=== PATIENT | male | born 1955 | race Caucasian/White ===

== ENCOUNTER 2019-01-23 18:19 | Emergency (ER) | payer BC ==
[~2019-01-23] VITALS: Ht 182.9 cm; Wt 90.7 kg
[~2019-01-23 18:19] MED LIST: ATOR40TA70 PO; BISTOLIC; CLOP75TA28 PO; FLUO40CA PO; FURO20TA4 PO; LISI40TA PO; [UNRECOGNIZED DRUG - REMARK]
--- NOTE | 2019-01-23 18:19 | NUR ---
PT TO ED 6 AT THIS TIME. PER DAUGHTER LAST KNOWN WELL TIME 1814 1821-18G HL TO RAC 1822-16F LUJAN PLACED BY MARCELL FLOWER 1823-PT TO CT PER CART AT THIS TIME. THIS RN AT BEDSIDE W/ KIARRA CRUMP M[employer] PLASTIC MOLDS 183-PT BACK TO ED FROM CT 1836-20G HL TO LAC 1838-EKG AT BEDSIDE 1845-TPA CONSENT SIGNED AT THIS TIME BY PTS DAUGHTER. 1848-FSBS 107 MG/DL 1858-TPA ADMINISTERED. BOLUS OF 8.2MGS ADMINISTERED OVER 1 MIN 1900-TPA GTT UP OF 73MGS TO BE INFUSED OVER 1HR. PLANS TO TRANSFER PT TO [facility] AT THIS TIME.
--- NOTE | 2019-01-23 18:27 | NUR ---
[facility] PLACE ON STANDBY .
[2019-01-23 18:35] LABS: BASOPHILS # (AUTO) 0.1 10^3/uL (0.0-0.1); BASOPHILS % (AUTO) 1 % (0-10); EOSINOPHILS # (AUTO) 0.2 10^3/uL (0.0-0.3); EOSINOPHILS % (AUTO) 2 % (0-10); HEMATOCRIT 40 % (40-54); HEMOGLOBIN 13.6 G/DL (13.3-17.7); LYMPHOCYTES # (AUTO) 1.8 X 10^3 (1.0-4.0); LYMPHOCYTES % (AUTO) 22 % (12-44); MEAN CORPUSCULAR HEMOGLOBIN 30 PG (25-34); MEAN CORPUSCULAR HGB CONC 34 G/DL (32-36); MEAN CORPUSCULAR VOLUME 88 FL (80-99); MEAN PLATELET VOLUME 8.9 FL (7.4-10.4); MONOCYTES # (AUTO) 0.6 X 10^3 (0.0-1.0); MONOCYTES % (AUTO) 7 % (0-12); NEUTROPHILS # (AUTO) 5.8 X 10^3 (1.8-7.8); NEUTROPHILS % (AUTO) 69 % (42-75); PLATELET COUNT 292 10^3/uL (130-400); WHITE BLOOD COUNT 8.4 10^3/uL (4.3-11.0)
--- NOTE | 2019-01-23 18:35 | Diagnostic Imaging Report ---
PROCEDURE: CT head without contrast. TECHNIQUE: Multiple contiguous axial images were obtained through the brain without the use of intravenous contrast. Auto Exposure Controls were utilized during the CT exam to meet ALARA standards for radiation dose reduction. INDICATION: Change in mental status. Abnormal gaze. FINDINGS: The ventricles are normal in size, shape and position. There is no acute parenchymal hemorrhage, edema or mass. There is no extra-axial mass or hemorrhage. IMPRESSION: No acute abnormality is seen with no change from 04/01/2014. Dictated by: Dictated on workstation # [id number]
[2019-01-23 18:39] LABS: BILIRUBIN,URINE NEGATIVE (NEGATIVE); CLARITY,URINE CLEAR; COLOR,URINE YELLOW; GLUCOSE, URINE (UA) NEGATIVE (NEGATIVE); KETONES,URINE NEGATIVE (NEGATIVE); LEUKOCYTE ESTERASE ,URINE NEGATIVE (NEGATIVE); NITRITE,URINE NEGATIVE (NEGATIVE); PH,URINE 6 (5-9); PROTEIN,URINE 1+ (NEGATIVE); UROBILINOGEN,URINE NORMAL (NORMAL)
[2019-01-23 18:44] LABS: FIBRIN DEGRADATION PRODUCTS 0.54 UG/ML (0.00-0.49); INR 0.9 (0.8-1.4); PROTHROMBIN TIME PATIENT 12.3 SEC (12.2-14.7)
[2019-01-23 18:46] LABS: BACTERIA,URINE NEGATIVE /HPF; SQUAMOUS EPITHELIAL CELL,UR 0-2 /HPF
--- OUTSIDE RECORDS SUMMARY | 2019-01-23 18:46 | XMS REPORT | Continuity of Care Document ---
Author Author [facility] Organization [facility] Address Unknown Phone Unavailable Allergies There is no data. Medications There is no data. Problems There is no data. Procedures There is no data. Results There is no data. Encounters ACCT No. Visit Date/Time Discharge Status Pt. Type Provider Facility Loc./Unit Complaint [id number] 04/01/2014 15:11:00 04/01/2014 17:26:00 DIS Emergency
[2019-01-23 18:50] LABS: ALANINE AMINOTRANSFERASE 19 U/L (0-55); ALBUMIN 4.4 GM/DL (3.2-4.5); ALKALINE PHOSPHATASE 86 U/L (40-136); BILIRUBIN,TOTAL 0.4 MG/DL (0.1-1.0); BUN/CREATININE RATIO 12; CALCIUM 9.7 MG/DL (8.5-10.1); CARBON DIOXIDE 18 MMOL/L (21-32); CHLORIDE 94 MMOL/L (98-107); CREATININE SERUM 1.01 MG/DL (0.60-1.30); GFR ESTIMATED > 60; GLUCOSE 119 MG/DL (70-105); POTASSIUM 3.9 MMOL/L (3.6-5.0); SODIUM 127 MMOL/L (135-145); TOTAL PROTEIN 8.1 GM/DL (6.4-8.2)
--- NOTE | 2019-01-23 18:50 | ED Neurological Problem ---
General Chief Complaint: Neurological Problems Stated Complaint: STROKE LIKE SYMPTOMS History of Present Illness Date Seen by Provider: Jan 23, 2019 Time Seen by Provider: 18:19 Initial Comments 63 year old male was eating dinner at [employer], he got into the car and his reports he immediately had facial drooping, inability to speak and was brought her. His last known well time was 1814. Hx of carotid atherosclerosis that required surgery, hypertension, and CAD. 10 days ago had cataract surgery. Has been on Plavix. Recent dizziness and syncope, had his b/p medications decreased. Timing/Duration: other (< 5 min. ) Severity: moderate Associated Symptoms: confusion; No fever/chills, No nausea/vomiting, No seizures; slurred speech (non verbal but attempting to move his mouth); No trouble walking (unable to walk, required 3 max assist to move from car to w/c and w/c to cart) Allergies and Home Medications Allergies Coded Allergies: Penicillins (Unverified Allergy, Unknown, 01/23/19) Home Medications Atorvastatin Calcium 40 Mg Tablet, 40 MG PO DAILY, (Reported) Clopidogrel Bisulfate 75 Mg Tablet, 75 MG PO DAILY, (Reported) Fluoxetine Hcl 40 Mg Capsule, 40 MG PO DAILY, (Reported) Furosemide 20 Mg Tablet, 20 MG PO DAILY, (Reported) Lisinopril 40 Mg Tablet, 40 MG PO DAILY, (Reported) [[id number] Mg] , 1 PO DAILY, (Reported) Patient Home Medication List Home Medication List Reviewed: Yes Review of Systems Review of Systems Constitutional: no symptoms reported, see HPI Psychiatric/Neurological: See HPI, Cognitive Dysfunction, Unable to Move Lower Ext, Unable to Move Upper Ext, Weakness All Other Systems Reviewed Negative Unless Noted: Yes Past Zdoowtu-Kbprjf-Tkhmjq Hx Past Med/Social Hx: Reviewed Nursing Past Med/Soc Hx Patient Social History Alcohol Use: Occasionally Uses Alcohol Beverage of Choice: Beer Recreational Drug Use: No Smoking Status: Former Smoker Type Used: Cigarettes Former Smoker, Quit: Dec 31, 2007 Recent Hopitalizations: No Physical Abuse: No Sexual Abuse: No Mistreated: No Fear: No Immunizations Up To Date Tetanus Booster (TDap): More than 5yrs Past Medical History Surgeries: Yes (LEFT TOTAL HIP, FEM POP BYPASS, CAROTID ENDARTERECTOMY) Respiratory: No Cardiac: Yes (RIGHT FEM-POP, RIGHT CAROTID STENT) Hypertension Neurological: No Genitourinary: No Gastrointestinal: No Endocrine: No Psychosocial: No Integumentary: No Physical Exam Vital Signs Vital Signs - First Documented 01/23/19 18:19 Temp 97.3 Pulse 81 Resp 18 B/P (MAP) 154/65 (94) Pulse Ox 98 O2 Delivery Room Air Capillary Refill : Height, Weight, BMI Height: 5'11" Weight: 180lbs. oz. 81.132433jd; BMI Method:Stated General Appearance: WD/WN, moderate distress HEENT: TMs normal, pharynx normal, other (No gag reflex) Neck: supple, normal inspection Respiratory: chest non-tender, lungs clear, normal breath sounds Cardiovascular: normal peripheral pulses, regular rate, rhythm Gastrointestinal: normal bowel sounds, soft Extremities: no pedal edema, normal capillary refill Neurologic/Psychiatric: alert, aphasia, motor weakness (no active ROM to bilat UE and LE) Skin: normal color, warm/dry Lymphatic: no adenopathy Initial NIH 38; Repeat NIH Post CT 34. Stroke Onset of Symptoms Date of Onset of Symptoms: Jan 23, 2019 Time of Symptom Onset: 18:15 Onset of Symptoms: Yes NIH Stroke Scale Assessment Select: Post CT 34 Total: IV - TPa Received IV - TPa Procedure Performed?: Yes (8.2 mg bolus, then 73 mg/hour) IV - TPa Date: Jan 23, 2019 IV - TPa Time: 18:58 Progress/Results/Core Measures Results/Orders Lab Results Laboratory Tests Test 01/23/19 18:25 01/23/19 18:49 Range/Units White Blood Count 8.4 4.3-11.0 10^3/uL Red Blood Count 4.56 4.35-5.85 10^6/uL Hemoglobin 13.6 13.3-17.7 G/DL Hematocrit 40 40-54 % Mean Corpuscular Volume 88 80-99 FL Mean Corpuscular Hemoglobin 30 25-34 PG Mean Corpuscular Hemoglobin Concent 34 32-36 G/DL Red Cell Distribution Width 14.0 10.0-14.5 % Platelet Count 292 130-400 10^3/uL Mean Platelet Volume 8.9 7.4-10.4 FL Neutrophils (%) (Auto) 69 42-75 % Lymphocytes (%) (Auto) 22 12-44 % Monocytes (%) (Auto) 7 0-12 % Eosinophils (%) (Auto) 2 0-10 % Basophils (%) (Auto) 1 0-10 % Neutrophils # (Auto) 5.8 1.8-7.8 X 10^3 Lymphocytes # (Auto) 1.8 1.0-4.0 X 10^3 Monocytes # (Auto) 0.6 0.0-1.0 X 10^3 Eosinophils # (Auto) 0.2 0.0-0.3 10^3/uL Basophils # (Auto) 0.1 0.0-0.1 10^3/uL Prothrombin Time 12.3 12.2-14.7 SEC INR Comment 0.9 0.8-1.4 Activated Partial Thromboplast Time 30 24-35 SEC D-Dimer 0.54 H 0.00-0.49 UG/ML Urine Color YELLOW Urine Clarity CLEAR Urine pH 6 5-9 Urine Specific [place] 1.010 L 1.016-1.022 Urine Protein 1+ H NEGATIVE Urine Glucose (UA) NEGATIVE NEGATIVE Urine Ketones NEGATIVE NEGATIVE Urine Nitrite NEGATIVE NEGATIVE Urine Bilirubin NEGATIVE NEGATIVE Urine Urobilinogen NORMAL NORMAL MG/DL Urine Leukocyte Esterase NEGATIVE NEGATIVE Urine RBC (Auto) NEGATIVE NEGATIVE Urine RBC NONE /HPF Urine WBC NONE /HPF Urine Squamous Epithelial Cells 0-2 /HPF Urine Crystals NONE /LPF Urine Bacteria NEGATIVE /HPF Urine Casts NONE /LPF Urine Mucus NEGATIVE /LPF Urine Culture Indicated NO Sodium Level 127 L 135-145 MMOL/L Potassium Level 3.9 3.6-5.0 MMOL/L Chloride Level 94 L 98-107 MMOL/L Carbon Dioxide Level 18 L 21-32 MMOL/L Anion Gap 15 H 5-14 MMOL/L Blood Urea Nitrogen 12 7-18 MG/DL Creatinine 1.01 0.60-1.30 MG/DL Estimat Glomerular Filtration Rate > 60 BUN/Creatinine Ratio 12 Glucose Level 119 H 70-105 MG/DL Calcium Level 9.7 8.5-10.1 MG/DL Corrected Calcium 9.4 8.5-10.1 MG/DL Total Bilirubin 0.4 0.1-1.0 MG/DL Aspartate Amino Transf (AST/SGOT) 17 5-34 U/L Alanine Aminotransferase (ALT/SGPT) 19 0-55 U/L Alkaline Phosphatase 86 40-136 U/L Troponin I < 0.028 <0.028 NG/ML Total Protein 8.1 6.4-8.2 GM/DL Albumin 4.4 3.2-4.5 GM/DL Glucometer 107 70-110 MG/DL My Orders Orders - TIKI FLORES Ct Head Wo (01/23/19 18:27) Cbc With Automated Diff (01/23/19 18:29) Protime With Inr (01/23/19 18:29) Partial Thromboplastin Time (01/23/19 18:29) Comprehensive Metabolic Panel (01/23/19 18:29) Fibrin Degradation Products (01/23/19 18:29) Troponin I (01/23/19 18:29) Ua Culture If Indicated (01/23/19 18:29) Chest 1 View, Ap/Pa Only (01/23/19 18:29) Catheter(Urinary) Insert & Ass 03,15 (01/23/19 18:29) Ekg Tracing (01/23/19 18:29) Accucheck Stat ONCE (01/23/19 18:29) Saline Lock/Iv-Start (01/23/19 18:29) Saline Lock/Iv-Start (01/23/19 18:29) Vital Signs Stroke Patient Q15M (01/23/19 18:29) O2 (01/23/19 18:29) Intake & Output 06,14,22 (01/23/19 18:29) Monitor-Rhythm Ecg Trace Only (01/23/19 18:29) Dysphagia Screening Tool (01/23/19 18:29) Post Thrombolytic Adminstratio (01/23/19 18:29) Alteplase (Activase) (Activase Injection (01/23/19 18:51) Medications Given in ED Current Medications Medications Dose Ordered Sig/Paige Route Start Time Stop Time Status Last Admin Dose Admin Alteplase, Recombinant (0.9mg/ kg-max 90mg) with ... ONCE ONCE IV 01/23/19 19:00 01/23/19 19:01 DC 01/23/19 18:58 81.2 MG Vital Signs/I&O 01/23/19 01/23/19 01/23/19 18:19 19:30 19:32 Temp 97.3 Pulse 81 84 84 Resp 18 18 18 B/P (MAP) 154/65 (94) 153/69 153/69 (97) Pulse Ox 98 97 97 O2 Delivery Room Air Room Air Progress Progress Note : Time: 18:19 Progress Note Pt seen and evaluated, Lee Catheter place, IV access, Labs and taken immediately to CT. B/P 154/65, P 82. 1820 Stroke activated, notified Dr. Persaud. 1827 Kaylae on standby. [address] 1840 Trace improvement in left UE and LE active motion. No ability to resist pressure, but able to resist gravity. Continued complete weakness in right UE and LE, with left eye gaze. Update daughter and . Clarified with them, he is full code. [address] Persaud, essentially normal and radiology reading negative for acute findings. [address] Gutierrez with Stroke, agreed to accept patient, ghost bed placement given, recommended TPA, no additional imaging, reviewed labs available , suspects large vessel occlusion, probably MCA, and Kaylae notified for transfer. B/P 131/65, P 92. TPA ordered by Dr. Persaud. 190 Patient continues to have improved active and resisted function on Left UE and LE. Remains non-verbal. Updated daughter and , understand he will be taken to [facility] via helicopter. 1912 [facility] arrived, report given. Still remains non-verbal and follows some simple commands. 1931 [facility] departed with patient. Notified Dr. Gutierrez for 60 min ETA. Initial ECG Impression Date: Jan 23, 2019 Initial ECG Impression Time: 18:38 Initial ECG Rate: 84 Initial ECG Rhythm: Normal Sinus Initial ECG Intervals: Normal Initial ECG Impression: Normal Initial ECG Comparisson: Unchanged Comment Reviewed with Dr. Persaud, concurred with interpretation. Departure Impression Primary Impression: Ischemic stroke Disposition: XFER SHT-TRM HOSP Condition: Critical Transfer Time Spoke to Accepting Phy: 18:[address] Gutierrez, [facility] Stroke Neurologist. Transfer Time: 19:32 Method of Transfer: Air Departure-Patient Inst. Referrals: MARCELLA MEDINA MD (PCP) Primary Care Physician TIKI FLORES Jan 23, 2019 18:50
--- NOTE | 2019-01-23 18:50 | Diagnostic Imaging Report ---
INDICATION: Stroke. Change in mental status. Abnormal gaze to the left. EXAMINATION: Single view of the chest was obtained. FINDINGS: Normal heart size and vascularity. The lungs are clear. There is no effusion or pneumothorax. IMPRESSION: No acute abnormality is seen. Dictated by: Dictated on workstation # [id number]
[2019-01-23] MEDS ORDERED: ALTEPLASE 100 MG/VIAL (ACTIVASE) IV ONE ×2 (18:51→19:00)
--- NOTE | 2019-01-23 19:10 | NUR ---
CONSENT FOR TRANSFER SIGNED BY PT'S DAUGHTER AT THIS TIME.
--- NOTE | 2019-01-23 19:13 | NUR ---
AERTALAE HERE FOR PT
--- NOTE | 2019-01-23 19:28 | NUR ---
Messi hudson in [facility] - 01/23/19 at 2024 by BETTY REPORT TO MINDY FLOWER AT [facility]
--- NOTE | 2019-01-23 19:28 | NUR ---
REPORT TO MINDY FLOWER AT [facility]
[2019-01-23 19:30] VITALS: BP 153/69
[2019-01-23 19:32] VITALS: BP 153/69
--- NOTE | 2019-01-23 19:32 | NUR ---
Messi hudson in ED - 01/23/19 at 2024 by BETTY PT TO KUMChandrakant MARTIN AT THIS TIME.
--- NOTE | 2019-01-23 19:32 | NUR ---
PT TO PEMA MARTIN
== END 2019-01-23 19:32 | disposition short-term general hospital (02) ==
LOC: EDUNIT# 18:19 → ER 18:20
DX: I63.9 Cerebral infarction, unspecified (principal); I10 Essential (primary) hypertension; Z88.0 Allergy status to penicillin; Z79.02 Long term (current) use of antithrombotics/antiplatelets; Z87.891 Personal history of nicotine dependence; Z96.642 Presence of left artificial hip joint; Z90.89 Acquired absence of other organs
CPT/HCPCS: 36415; 70450; 71045; 80053; 81000; 82962; 84484; 85025; 85379; 85610; 85730; 92977; 93005; 93041; 96365; 99291

== ENCOUNTER 2019-01-27 10:49 | Inpatient (IN) | payer BC, MEDICARE ==
[~2019-01-27] VITALS: Ht 175.3 cm; Wt 82.3 kg
[2019-01-27] MEDS ORDERED: CALCIUM CARBONATE 500 MG (TUMS) TAB.CHEW PO PRN (12:30)
[2019-01-27] MEDS ORDERED: MELATONIN 3 MG TABLET PO PRN (12:30)
[2019-01-27] MEDS ORDERED: ONDANSETRON 4 MG (ZOFRAN) ORAL DISSOLVE TAB PO PRN (12:30)
[2019-01-27] MEDS ORDERED: ACETAMINOPHEN 500 MG TAB (TYLENOL) PO PRN (12:30)
[2019-01-27] MEDS ORDERED: DOCUSATE SODIUM 100 MG (COLACE) CAP PO PRN (12:30)
[2019-01-27] MEDS ORDERED: diphenhydrAMINE 25 MG TAB (BENADRYL) PO PRN (12:30)
[2019-01-27] MEDS ORDERED: PRED10DR OU (15:11)
[2019-01-27] MEDS ORDERED: SERT100T PO (15:11)
[2019-01-27] MEDS ORDERED: BISO5TAB PO (15:11)
[2019-01-27] MEDS ORDERED: NF-NACL1GT PO (15:11)
[2019-01-27] MEDS ORDERED: SENN-40 PO (15:11)
[2019-01-27] MEDS ORDERED: ASPI-999 PO (15:11)
[2019-01-27] MEDS ORDERED: ATOR40TA70 PO (15:11)
[2019-01-27] MEDS ORDERED: DICL100G18 TP (15:11)
[2019-01-27] MEDS ORDERED: AMLO10TA7 PO (15:11)
[2019-01-27] MEDS ORDERED: HEPA500016 SC (15:11)
[2019-01-27] MEDS ORDERED: BRIN8DRO OU (15:11)
[2019-01-27] MEDS ORDERED: CLOP75TA28 PO (15:11)
[2019-01-27] MEDS ORDERED: LIDO1ADH41 TD (15:11)
--- NOTE | 2019-01-27 15:44 | NUR ---
UPDATED MED REC TO THE LIST OF MEDICATIONS ORDERED UPON DISCHARGE FROM . NOTE THE FOLLOWING CHANGES WERE MADE AT THAT DISCHARGE: START TAKING: AMLODIPINE 10MG DAILY ASPIRIN 81MG CHEW DAILY VOLTAREN GEL 2GM TOP BID HEPARIN 5000UNITS/0.5ML - 0.5ML SUBQ Q8H (DO NOT START UNTIL 01-28-19) LIDODERM 5% APPLY DAILY FOR 12 HOURS THEN REMOVE FOR 12 HOURS SENOKOT S BID ZOLOFT 100MG DAILY SODIUM CHLORIDE 1GM TID CHANGE HOW YOU TAKE: LIPITOR 40MG 2 TABS DAILY (WAS TAKING 1 TAB DAILY) STOP TAKING: CELEBREX 200MG (HAD NOT BEEN FILLED SINCE 11-07-18 #60 FOR 30 DAYS) PROZAC 40MG DAILY GENTAMICIN 0.3% (QID IN OPERATIVE EYE DAY PRIOR TO SURGERY FILLED 01-18-19) TRIBENZOR 40-1025 DAILY EXT MED HX ALSO SHOWED TESTOSTERONE GEL FILLED 11-19-18 HOWEVER [facility] DID NOT DISPENSE THAT MEDICATION. THIS MED WAS NOT INCLUDED IN MED REC SINCE IT IS PAST DUE FOR REFILL AND NOT ADDRESSED ON DISCHARGE FROM . I WILL UPDATE THE MED REC IN THE COMPUTER BACK TO THE HOME MEDICATIONS PRIOR TO DISCHARGE CHANGES FROM AT A LATER TIME TO ALLOW FOR PROPER DISCHARGE ORDERS TO HOME. Addendum: 01/28/19 at 0930 by MANI BLANKENSHIP [facility] REMOVED THE 8 NEW MEDICATIONS ORDERED AT DISCHARGE FROM AND ADDED BACK THE FLUOXETINE AND TRIBENZOR THAT WERE DISCONTINUED. I DID NOT ADD THE GENTAMICIN OR CELEBREX BECAUSE IT DOES NOT LOOK LIKE THEY WERE CURRENT MEDICATIONS AND THE MEDS THAT WERE DISCONTINUED AT INCLUDED BOTH MED STOPPED DURING THE VISIT THERE AND MEDS ON FILE FROM PREVIOUS THAT THE PATIENT REPORTED NO LONGER TAKING. I ALSO CHANGED THE LIPITOR BACK TO 1 DAILY, IT HAD BEEN INCREASED TO 2 DAILY AT .
--- NOTE | 2019-01-27 16:30 | NUR ---
Admitted to room 223-1, with an admitting diagnosis of CVA, on 01/27/19 from [facility] via , accompanied by .BAILEY WEINSTEIN introduced to surroundings, call light, bed controls, phone, TV, temperature control, lights, meal times, smoking policy, visitor policy, side rail policy, bathrooms and showers. Patient Rights given to patient in the handbook.BAILEY WEINSTEIN verbalizes understanding that [facility] is not responsible for the loss or damage to any personal effects or valuables that are kept in the patients posession during their hospitalization. The following Patient Care Plans were discussed with the : Discharge Planning, ,, and . BAILEY WEINSTEIN verbalizes understanding of Interdisciplinary Patient Education. Patient and/or family were informed about the Rapid Response Team and its purpose. Patient received Patient Rights Booklet, which includes Privacy Act Statement and Data Collection Information Summary.
--- OUTSIDE RECORDS SUMMARY | 2019-01-27 16:45 | XMS REPORT | Continuity of Care Document ---
Author Author [facility] Organization [facility] Address Unknown Phone Unavailable Allergies Active Description Code Type Severity Reaction Onset Reported/Identified Relationship to Patient Clinical Status Yes Penicillins [id number] Drug Allergy Unknown N/A 01/23/2019 Medications There is no data. Problems Date Dx Coded Attending Type Code Diagnosis Diagnosed By 04/01/2014 RADHA MCCLENDON MD Ot 873.0 OPEN WOUND OF SCALP 04/01/2014 RADHA MCCLENDON MD Ot 883.0 OPEN WOUND OF FINGER 04/01/2014 RADHA MCCLENDON MD Ot E849.0 ACCIDENT IN HOME 04/01/2014 RADHA MCCLENDON MD Ot E881.0 FALL FROM LADDER 04/01/2014 RADHA MCCLENDON MD Ot V06.1 [id number], COMBINED [ Procedures There is no data. Results Test Result Range Complete blood count (CBC) with automated white blood cell (WBC) differential - 01/23/19 18:25 Blood leukocytes automated count (number/volume) 8.4 10*3/uL 4.3-11.0 Blood erythrocytes automated count (number/volume) 4.56 10*6/uL 4.35-5.85 Venous blood hemoglobin measurement (mass/volume) 13.6 g/dL 13.3-17.7 Blood hematocrit (volume fraction) 40 % 40-54 Automated erythrocyte mean corpuscular volume 88 [foz_us] 80-99 Automated erythrocyte mean corpuscular hemoglobin (mass per erythrocyte) 30 pg 25-34 Automated erythrocyte mean corpuscular hemoglobin concentration measurement ( mass/volume) 34 g/dL 32-36 Automated erythrocyte distribution width ratio 14.0 % 10.0-14.5 Automated blood platelet count (count/volume) 292 10*3/uL 130-400 Automated blood platelet mean volume measurement 8.9 [foz_us] 7.4-10.4 Automated blood neutrophils/100 leukocytes 69 % 42-75 Automated blood lymphocytes/100 leukocytes 22 % 12-44 Blood monocytes/100 leukocytes 7 % 0-12 Automated blood eosinophils/100 leukocytes 2 % 0-10 Automated blood basophils/100 leukocytes 1 % 0-10 Blood neutrophils automated count (number/volume) 5.8 10*3 1.8-7.8 Blood lymphocytes automated count (number/volume) 1.8 10*3 1.0-4.0 Blood monocytes automated count (number/volume) 0.6 10*3 0.0-1.0 Automated eosinophil count 0.2 10*3/uL 0.0-0.3 Automated blood basophil count (count/volume) 0.1 10*3/uL 0.0-0.1 PT panel in platelet poor plasma by coagulation assay - 01/23/19 18:25 Prothrombin time (PT) in platelet poor plasma by coagulation assay 12.3 s 12.2-14.7 INR in platelet poor plasma or blood by coagulation assay 0.9 0.8-1.4 Activated partial thromboplastin time (aPTT) in platelet poor plasma bycoagulation assay - 01/23/19 18:25 Activated partial thromboplastin time (aPTT) in platelet poor plasma bycoagulation assay 30 s 24-35 Fibrin D-dimer FEU measurement in platelet poor plasma (mass/volume) - 18:25 Fibrin D-dimer FEU measurement in platelet poor plasma (mass/volume) 0.54 ug/mL 0.00-0.49 Complete urinalysis with reflex to culture - 01/23/19 18:25 Urine color determination YELLOW NRG Urine clarity determination CLEAR NRG Urine pH measurement by test strip 6 5-9 Specific gravity of urine by test strip 1.010 1.016- 1.022 Urine protein assay by test strip, semi-quantitative 1+ NEGATIVE Urine glucose detection by automated test strip NEGATIVE NEGATIVE Erythrocytes detection in urine sediment by light microscopy NEGATIVE NEGATIVE Urine ketones detection by automated test strip NEGATIVE NEGATIVE Urine nitrite detection by test strip NEGATIVE NEGATIVE Urine total bilirubin detection by test strip NEGATIVE NEGATIVE Urine urobilinogen measurement by automated test strip (mass/volume) NORMAL NORMAL Urine leukocyte esterase detection by dipstick NEGATIVE NEGATIVE Automated urine sediment erythrocyte count by microscopy (number/high power field) NONE NRG Automated urine sediment leukocyte count by microscopy (number/high power field ) NONE NRG Bacteria detection in urine sediment by light microscopy NEGATIVE NRG Squamous epithelial cells detection in urine sediment by light microscopy 0-2 NRG Crystals detection in urine sediment by light microscopy NONE NRG Casts detection in urine sediment by light microscopy NONE NRG Mucus detection in urine sediment by light microscopy NEGATIVE NRG Complete urinalysis with reflex to culture NO NRG Comprehensive metabolic panel - 01/23/19 18:25 Serum or plasma sodium measurement (moles/volume) 127 mmol/L 135-145 Serum or plasma potassium measurement (moles/volume) 3.9 mmol/L 3.6-5.0 Serum or plasma chloride measurement (moles/volume) 94 mmol/L 98-107 Carbon dioxide 18 mmol/L 21-32 Serum or plasma anion gap determination (moles/volume) 15 mmol/L 5-14 Serum or plasma urea nitrogen measurement (mass/volume) 12 mg/dL 7-18 Serum or plasma creatinine measurement (mass/volume) 1.01 mg/dL 0.60-1.30 Serum or plasma urea nitrogen/creatinine mass ratio 12 NRG Serum or plasma creatinine measurement with calculation of estimated glomerular filtration rate > NRG Serum or plasma glucose measurement (mass/volume) 119 mg/dL 70-105 Serum or plasma calcium measurement (mass/volume) 9.7 mg/dL 8.5-10.1 Serum or plasma total bilirubin measurement (mass/volume) 0.4 mg/dL 0.1-1.0 Serum or plasma alkaline phosphatase measurement (enzymatic activity/volume) 86 U/L 40-136 Serum or plasma aspartate aminotransferase measurement (enzymatic activity/ volume) 17 U/L 5-34 Serum or plasma alanine aminotransferase measurement (enzymatic activity/volume ) 19 U/L 0-55 Serum or plasma protein measurement (mass/volume) 8.1 g/dL 6.4-8.2 Serum or plasma albumin measurement (mass/volume) 4.4 g/dL 3.2-4.5 CALCIUM CORRECTED 9.4 mg/dL 8.5-10.1 Serum or plasma troponin i.cardiac measurement (mass/volume) - 01/23/19 18:25 Serum or plasma troponin i.cardiac measurement (mass/volume) < ng/ mL <0.028 Capillary blood glucose measurement by glucometer (mass/volume) - 01/23/19 18: 49 Capillary blood glucose measurement by glucometer (mass/volume) 107 mg/dL 70-110 Encounters ACCT No. Visit Date/Time Discharge Status Pt. Type Provider Facility Loc./Unit Complaint [id number] 01/23/2019 18:20:00 01/23/2019 19:32:00 DIS Emergency TIKI FLORES [facility] ER STROKE LIKE SYMPTOMS [id number] 04/01/2014 15:11:00 04/01/2014 17:26:00 DIS Emergency RADHA MCCLENDON MD [facility] ER FALL
--- NOTE | 2019-01-27 16:48 | PM&R H&P / Post Admit Assess ---
History of Present Illness HPI/Chief Complaint CC: Ischemic stroke HPI: This is a 63-year-old white male of Dr. Schultz who presented to via [facility] ER on 01/23/19 with abrupt onset of severe weakness on the right side underwent stroke workup and found to be a candidate for TPA then shipped to [facility] and subsequently underwent left carotid endarterectomy on 01/25/19 but still remains with right sided weakness with severe expressive aphasia. Reviewed the entire record at [facility] and reviewed his home medications and patient appears to be ready to start aggressive physical therapy in order regain function. His drove him from and reports that he did well on the trip. His jwhpbz-ii-iel is a nurse and she helped reviewed the discharge med list. He is currently on. Diet with nectar thickened liquids. CT scan via [facility] and [facility] showed a left ischemic process of the MCA distribution. During hospital course the he had no significant clinical decompensation. Patient requires inpatient rehabilitation with 24 hour physician supervision to monitor her labile blood pressure and monitor for any hemorrhagic residual from ischemic stroke that cannot be provided in any type of lower level of care. 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 Source: family, RN/MD, old records Exam Limitations: clinical condition Date Seen 01/27/19 Time Seen by a Provider: 16:45 Attending Physician Kriss Whitten DO PCP Edawrd Anderson MD Referring Physician Date of Admission Jan 27, 2019 at 16:40 Home Medications & Allergies Home Medications Reviewed patient Home Medication Reconciliation performed by pharmacy medication reconciliations audiovisual lead technician and/or nursing. Patients Allergies have been reviewed. 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) Alcohol Use: Occasionally Uses Alcohol Beverage of Choice: Beer Smoking Status: Former Smoker Former Smoker, Quit: Dec 31, 2007 Type Used: Cigarettes Recent Foreign Travel: No Contact w/other who traveled: No Recent Hopitalizations: No Immunizations Up To Date Tetanus Booster (TDap): More than 5yrs Past Medical History Surgeries: Vascular Surgery (popliteal, carotid (01/25/19)) Cardiac: Coronary Artery Disease, High Cholesterol, Hypertension, Peripheral Vascular Neurological: Stroke (01/23/19) Musculoskeletal: Arthritis Kleinfelter syndrome Psychosocial: Depression Family History Hypertension Review of Systems Constitutional: see HPI, malaise, weakness EENTM: no symptoms reported Respiratory: no symptoms reported Cardiovascular: no symptoms reported Gastrointestinal: constipation Genitourinary: other (retention) Musculoskeletal: muscle stiffness Skin: no symptoms reported Psychiatric/Neurological: Depressed All Other Systems Reviewed Negative Unless Noted: Yes Physical Exam Exam Vital Signs Vital Signs Date Time Temp Pulse Resp B/P (MAP) Pulse Ox O2 Delivery O2 Flow Rate FiO2 01/28/19 06:15 98.2 72 18 174/77 (109) 96 Room Air Capillary Refill : General Appearance: No Apparent Distress, WD/WN, Chronically ill HEENT: PERRL/EOMI, Normal ENT Inspection, Pharynx Normal, Moist Mucous Membranes, Other (right facial droop) Neck: Full Range of Motion, Normal Inspection, Non Tender, Supple, Other ( incision left neck intact) Respiratory: Chest Non Tender, Lungs Clear, Normal Breath Sounds, No Accessory Muscle Use, No Respiratory Distress Cardiovascular: Regular Rate, Rhythm, No Edema, No Gallop, No JVD, No Murmur Gastrointestinal: Normal Bowel Sounds, No Organomegaly, No Pulsatile Mass, Non Tender, Soft Back: Normal Inspection, No CVA Tenderness, No Vertebral Tenderness Extremity: Normal Capillary Refill, Normal Inspection, Normal Range of Motion ( except right sided weakness 1/5 arm and leg and 3/5 left side), Non Tender, No Calf Tenderness, No Pedal Edema Neurologic/Psychiatric: Alert, Oriented x3, Abnormal coating mixer tender II-XII (right facial droop), Aphasia, Depressed Affect, Motor Weakness (right sided weakness profound deficit) Skin: Normal Color, Warm/Dry Lymphatic: No Adenopathy Results Results/Procedures Labs Laboratory Tests 01/28/19 06:05 Patient resulted labs reviewed. Assessment/Plan Assessment and Plan Assess & Plan/Chief Complaint (1) Ischemic stroke (2) S/P carotid endarterectomy (3) PVD (peripheral vascular disease) (4) CAD (coronary artery disease) (5) Expressive aphasia (6) Right sided weakness (7) Anemia (8) Hypertension (9) S/P cataract extraction (10) Dysphagia (11) Hyperlipidemia (12) Constipation (13) Klinefelter syndrome (14) Received intravenous tissue plasminogen activator (tPA) in emergency department (15) Depression (16) Former smoker (17) Hyponatremia (18) DVT prophylaxis (19) Acute urinary retention Plan: PT/OT/Speech intensive therapies Consult Dr Brantley Lee catheter until until retention resolves Heparin SQ for DVT PPx Monitor sodium level Speech to advance diet as long as not an aspiration risk (1) Ischemic stroke (2) S/P carotid endarterectomy (3) PVD (peripheral vascular disease) (4) CAD (coronary artery disease) (5) Expressive aphasia (6) Right sided weakness (7) Anemia (8) Hypertension (9) S/P cataract extraction (10) Dysphagia (11) Hyperlipidemia (12) Constipation (13) Klinefelter syndrome (14) Received intravenous tissue plasminogen activator (tPA) in emergency department (15) Depression (16) Former smoker (17) Hyponatremia (18) DVT prophylaxis (19) Urinary retention (20) Lee catheter in place Post Admission Physician Asses Date seen by provider: Jan 27, 2019 Time seen by provider: 16:45 Admisison Dx: (1) Ischemic stroke Status: Acute The preadmission screen agrees with the post admission assessment that the patient is a good candidate for inpatient rehabilitation. The patient will have a comprehensive program of inpatient rehabilitation with a goal of maximizing level of functional independence prior to discharge home with family. The patient will have PT/OT ninety minutes per day, each discipline, five days a week for gait, strengthening, conditioning, balance, ADLs, any patient/family/caregiver training as necessary. Speech therapy to do cognitive assessment and treat as indicated. Rehabilitation nursing to assist with bowel, bladder, skin, wound care, medication administration, pain management. Decision Unit Rn to assist with discharge planning, community reentry. SCD's for DVT prophylaxis. He appears to be well motivated to participate in three hours of therapy a day. He should be able to tolerate three hours of therapy a day from a medical standpoint. He should benefit from the three hours of therapy a day. He has a reasonable discharge plan, reasonable discharge rehabilitation goals and a supportive family. He has various comorbidities that need to be closely monitored with medications and treatments adjusted on a daily basis as needed. These include: see above list Barriers to discharge for this patient who had been independent prior to this are for him to be modified independent to supervision for ADLs and mobility skills prior to discharge home with [family], so as to lessen the burden of the caregivers. Risks for this patient include: 1. Fall 2. Fracture 3. DVT 4. Pulmonary embolism 5. Wound infection 6. Skin breakdown 7. Contractures 8. Poorly controlled pain 9. Urinary retention 10. UTI 11. Respiratory infection 12. Aspiration Estimated Length of Stay: 21 days Prognosis: Rehab prognosis appears good for goal of discharge home with family modified independent to supervision for ADLs and mobility skills. General: Alert, Oriented X3, Cooperative, No Acute Distress HEENT: Atraumatic, PERRLA Neck: Supple, No JVD, No Thyromegaly, +2 Carotid Pulse No Bruit, No LAD Lungs: Clear to Auscultation, Normal Air Movement Heart: Regular Rate, Normal S1, Normal S2 Abdomen: Normal Bowel Sounds, Soft, No Tenderness, No Hepatosplenomegaly, No Masses Extremities: No Clubbing, No Cyanosis, No Edema, Normal Pulses, No Tenderness/ Swelling Skin: No Rashes, No Breakdown, No Significant Lesion, Other (left neck incision line intact) Neuro: Other (right facial droop, right sided weakness 1/5 arm and leg, expressive aphasia) Psych/Mental Status: Other (flat affect) KRISS WHITTEN DO Jan 27, 2019 16:48
[2019-01-27] MEDS ORDERED: ENOXAPARIN 40 MG/0.4 ML (LOVENOX) SYR SC SCH (17:00)
[2019-01-27 17:51] VITALS: BP 133/78
--- NOTE | 2019-01-27 19:25 | NUR ---
Pts to bring eye gtts in am. Dr Jalloh notified of pt with urinary retention. New order received for valera cath. Reported to body press operator nurse [place] and he stated that he would put valera in.
[2019-01-27] MEDS ORDERED: PATIENT MAY USE OWN MEDS, ALL MC SCH (19:30)
[2019-01-27] MEDS ORDERED: NON-FORMULARY MEDICATION 1 EA EA (Brinzolamide/Brimonidine Tart (Simbrinza 1%-0.2% Eye Dro OU SCH (21:00)
[2019-01-27] MEDS: prednisoLONE 1% OPTH (PRED FORTE) 5 ML BTL OU SCH (21:25)
[2019-01-27] MEDS: ATORVASTATIN 80 MG (LIPITOR) TABLET PO SCH (21:25)
[2019-01-27] MEDS: SENNA W/DOCUSATE (SENOKOT S) TABLET PO SCH (21:25)
[2019-01-27] MEDS: SODIUM CHLORIDE 1 GM TAB (NON-FORMULARY) PO SCH (21:25)
[2019-01-27] MEDS: DICLOFENAC 1% GEL 100 GM (VOLTAREN) TUBE TOP SCH (21:25)
[2019-01-27] MEDS: POLYETHYLENE GLYCOL 17 GM (MIRALAX) PACK PO SCH (21:25)
[2019-01-27] MEDS: LIDOCAINE PATCH REMOVAL TP SCH (21:26)
[2019-01-28 06:15] VITALS: BP 174/77
[2019-01-28 06:28] LABS: HEMATOCRIT 32 % (40-54); HEMOGLOBIN 10.6 G/DL (13.3-17.7); MEAN CORPUSCULAR HEMOGLOBIN 30 PG (25-34); MEAN CORPUSCULAR HGB CONC 33 G/DL (32-36); MEAN CORPUSCULAR VOLUME 91 FL (80-99); WHITE BLOOD COUNT 9.7 10^3/uL (4.3-11.0)
[2019-01-28 06:29] LABS: BASOPHILS # (AUTO) 0.1 10^3/uL (0.0-0.1); BASOPHILS % (AUTO) 1 % (0-10); EOSINOPHILS # (AUTO) 0.4 10^3/uL (0.0-0.3); EOSINOPHILS % (AUTO) 4 % (0-10); LYMPHOCYTES # (AUTO) 1.4 X 10^3 (1.0-4.0); LYMPHOCYTES % (AUTO) 14 % (12-44); MEAN PLATELET VOLUME 9.2 FL (7.4-10.4); MONOCYTES # (AUTO) 1.1 X 10^3 (0.0-1.0); MONOCYTES % (AUTO) 12 % (0-12); NEUTROPHILS # (AUTO) 6.7 X 10^3 (1.8-7.8); NEUTROPHILS % (AUTO) 70 % (42-75); PLATELET COUNT 297 10^3/uL (130-400)
[2019-01-28 06:45] LABS: ALANINE AMINOTRANSFERASE 18 U/L (0-55); ALBUMIN 3.6 GM/DL (3.2-4.5); ALKALINE PHOSPHATASE 67 U/L (40-136); BILIRUBIN,TOTAL 0.6 MG/DL (0.1-1.0); BUN/CREATININE RATIO 20; CALCIUM 9.5 MG/DL (8.5-10.1); CARBON DIOXIDE 23 MMOL/L (21-32); CHLORIDE 103 MMOL/L (98-107); CREATININE SERUM 0.71 MG/DL (0.60-1.30); GFR ESTIMATED > 60; GLUCOSE 106 MG/DL (70-105); POTASSIUM 4.2 MMOL/L (3.6-5.0); SODIUM 135 MMOL/L (135-145); TOTAL PROTEIN 6.6 GM/DL (6.4-8.2)
[2019-01-28 08:30] VITALS: BP 105/65
--- NOTE | 2019-01-28 08:58 | PM&R Progress Note ---
Subjective HPI/CC On Admission Date Seen by Provider: Jan 28, 2019 Time Seen by Provider: 08:45 Subjective/Events-last exam Patient already had a shower today with assistance Per to dissipating and physical therapy right now in the gym Stated okay to the nurse and was able to verbalize that this morning Right arm actually moved today Long way to go because he was independent prior to the event but he is motivated to improve Participating in all therapies to improve gait and transfers and use of right side Lee catheter in place due to urinary retention we'll consult Dr. Karon Araujo be given for constipation DVT prophylaxis with heparin Reviewed labs Speech therapy will see him to evaluate cognition and dysphagia Review of Systems Neurological: Weakness, Numbness, Incoordination Objective Exam Vital Signs Vital Signs Date Time Temp Pulse Resp B/P (MAP) Pulse Ox O2 Delivery O2 Flow Rate FiO2 01/28/19 11:25 66 147/75 (99) 01/28/19 06:15 98.2 18 96 Room Air Capillary Refill : General Appearance: No Apparent Distress, WD/WN, Chronically ill HEENT: PERRL/EOMI, Pharynx Normal, Other (right facial droop) Respiratory: Chest Non Tender, Lungs Clear, Normal Breath Sounds, No Accessory Muscle Use, No Respiratory Distress Cardiovascular: Regular Rate, Rhythm, No Edema, No Gallop, No JVD, No Murmur, Normal Peripheral Pulses Gastrointestinal: Normal Bowel Sounds, No Organomegaly, No Pulsatile Mass, Non Tender, Soft Extremity: Normal Capillary Refill, Normal Inspection, Non Tender, No Calf Tenderness, No Pedal Edema, Other (limited ROM right side and mild deficit left) Neurologic/Psychiatric: Alert, Abnormal construction analyst II-XII, Abnormal Gait, Aphasia, Depressed Affect, Facial Droop (right), Motor Weakness (right) Skin: Normal Color, Warm/Dry, Other (improved left CEA incision site) Lymphatic: No Adenopathy Results/Procedures Lab Laboratory Tests 01/28/19 06:05 Patient resulted labs reviewed. Assessment/Plan Assessment and Plan Assess & Plan/Chief Complaint Assessment: (1) Ischemic stroke (2) S/P carotid endarterectomy 01/25/19 with no improvement in right sided weakness (3) PVD (peripheral vascular disease) (4) CAD (coronary artery disease) (5) Expressive aphasia (6) Right sided weakness (7) Anemia (8) Hypertension (9) S/P cataract extraction (10) Dysphagia (11) Hyperlipidemia (12) Constipation (13) Klinefelter syndrome (14) Received intravenous tissue plasminogen activator (tPA) in emergency department 01/23/[address] [facility] ER (15) Depression (16) Former smoker (17) Hyponatremia improved on salt tablets (18) DVT prophylaxis (19) Urinary retention (20) Lee catheter in place Plan: Consult Dr rBantley for Urology DVT PPx Monitor for pain Left cataract eye care (1) Ischemic stroke (2) Anemia (3) Expressive aphasia (4) CAD (coronary artery disease) (5) Dysphagia (6) Hyperlipidemia (7) PVD (peripheral vascular disease) (8) Hypertension (9) Right sided weakness (10) Klinefelter syndrome (11) Constipation (12) Depression (13) Hyponatremia (14) DVT prophylaxis (15) Received intravenous tissue plasminogen activator (tPA) in emergency department (16) Urinary retention (17) Lee catheter in place (18) S/P carotid endarterectomy (19) S/P cataract extraction (20) Former smoker Clinical Quality Measures DVT/VTE Risk/Contraindication: Risk Factor Score Per Nursin RFS Level Per Nursing on Admit: 4+=Very High BOOGIE WHITTEN DO Jan 28, 2019 08:58
[2019-01-28] MEDS ORDERED: FLUO40CA PO (09:27)
[2019-01-28] MEDS ORDERED: OLME1TAB54 PO (09:27)
--- NOTE | 2019-01-28 09:43 | Physical Therapy Evaluation ---
PT Evaluation-General Medical Diagnosis Admission Date Jan 27, 2019 at 16:40 Medical Diagnosis: CVA Onset Date: Jan 23, 2019 Therapy Diagnosis Therapy Diagnosis: impaired mobility, strength, endurance, balance Height/Weight Height (Feet): 5 Height (Inches): 9.00 Weight (Pounds): 188 Weight (Ounces): 0.3 Precautions Precautions/Isolations: Aspiration, Fall Prevention, Standard Precautions, Pressure Ulcer Referral Physician: Kriss Jalloh DO Reason for Referral: Evaluation/Treatment Medical History Additional Medical History Past Medical History Surgeries: Vascular Surgery (popliteal, carotid (01/25/19)) Cardiac: Coronary Artery Disease, High Cholesterol, Hypertension, Peripheral Vascular Neurological: Stroke (01/23/19) Musculoskeletal: Arthritis Kleinfelter syndrome Psychosocial: Depression Reviewed History: Yes Social History Home: Multilevel Current Living Status: Spouse Entry Into Home: Stairs With Railing PT Steps Into Home: 2 Prior/Core FIM Prior Level of Function Therapy Code Descriptions/Definitions Functional Mayes Measure: 0=Not Assessed/NA 4=Minimal Assistance 1=Total Assistance 5=Supervision or Setup 2=Maximal Assistance 6=Modified Mayes 3=Moderate Assistance 7=Complete Mayes Therapy Quality Codes: 6 Independent with activity with or without an assistive device 5 Patient requires set up or clean up by helper. Patient completes activity by themselves 4 Supervision or touching assist (CGA). [place] provide cues , steadying assist 3 The helper provides less than half the effort to complete the activity 2 The helper provides more than half the effort to complete the activity 1 Dependent. The helper does all the effort to complete an activity 7 Patient refused to complete or attempt activity 9 The patient did not perform the activity before the current illness or injury 88 Not attempted due to Medical conditions or safety concerns Functional Abilities and Goals: Independent: Patient completed the activities by him/herself, with or without an assistive device, with no assistance from a helper. Needed Some Help: Patient needed partial assistance from another person to complete activities. Dependent: A helper completed the activities for the patient. Unknown: Not Applicable: Bed Mobility: 7 Transfers (B,C,W/C) (FIM): 7 Gait: 7 Stairs: 7 Indoor Mobility (Ambulation): Independent Stairs: Independent This information obtained only because this therapist has seen the gentleman at work and knows he was independent with all mobility. PT Evaluation-Current Subjective Patient in bed pre tx, agrees to PT, asked if he has pain and patient doesn't seem to be able to verbalize if he has pain at this time. Will be co-treating with OT this morning due to poor patient strength, balance, and endurance. Pt/Family Goals none stated Objective Patient Orientation: Person, Unable to Assess, Non-Verbal/Aphasic Attachments: Lee Catheter ROM/Strength ROM Lower Extremities limited in bilateral lower extremities due to tight hamstrings and glutes. Strenght Lower Extremities right lower extremity (knee extension 2/5, knee flexion 1/5, dorsiflexion 0/5), left lower extremity 5/5 gross Neuromuscular (Tone, Coordination, Reflexes) NT. Patient not able to follow directions for visual testing but he does seem to track to the right side. Sensory Vision: Functional Hearing: Functional Sensation Left Lower Extremity: Intact Sensation Lower Extremities Patient is unable to state if he has any numbness or tingling in his right LE. Transfers Therapy Code Descriptions/Definitions Functional Mayes Measure: 0=Not Assessed/NA 4=Minimal Assistance 1=Total Assistance 5=Supervision or Setup 2=Maximal Assistance 6=Modified Mayes 3=Moderate Assistance 7=Complete Mayes Therapy Quality Codes: 6 Independent with activity with or without an assistive device 5 Patient requires set up or clean up by helper. Patient completes activity by themselves 4 Supervision or touching assist (CGA). [place] provide cues , steadying assist 3 The helper provides less than half the effort to complete the activity 2 The helper provides more than half the effort to complete the activity 1 Dependent. The helper does all the effort to complete an activity 7 Patient refused to complete or attempt activity 9 The patient did not perform the activity before the current illness or injury 88 Not attempted due to Medical conditions or safety concerns Transfers (B, C, W/C) (FIM): 3 Scootin Rollin Roll Left to Right (QC): 2 Supine to/from Sit: 3 Sit to/from Stand: 3 bed t/f WC(FIM only if WC use): 3 Sit to Lying (QC): 2 Lying to Sitting/Side of Bed(Q: 2 Sit to Stand (QC): 2 Chair/Wga-se-Zybko Xfer(QC): 2 Car Transfer (QC): 2 Patient performs bed mobility with mod assist, supine <-> sit with mod assist, sit <-> stand with mod assist, transfers with mod assist, car transfer with max assist. Patient is able to perform a stand pivot transfer to the left side with a hard min assist but needs mod assist to the right side. Leans to the right side when sitting. Gait Does the Patient Walk?: Yes Mode of Locomotion: Both Anticipated Mode of Locomotion: Walk Gait (FIM): 1 Distance: 8'x3 Gait Level of Assist: 3 Gait Persons Needed: 1 Gait Assistive Device: Parallel Bars Comments/Gait Description Patient can ambulate 8' in the parallel bars with mod assist. He needs assist with weight shifting, leans to the right side, needs assist advancing his right leg. Wheelchair Training Does the Pt Use a Wheelchair?: Yes Wheelchair (FIM): 2 Distance: 50' Wheelchair Level of Assist: 3 Wheel 50 ft with 2 turns (QC): 2 Type of Wheelchair: Manual Patient can propel a manual wheelchair 50' with mod assist. He can use his hand on the wheel on the left but has not been able to steer using his left leg at this time. Stairs If not tested on admit;explain Patient is not able to do stairs at this time due to profound impairments in mobility. Balance Sitting Static: Poor Sitting Dynamic: Poor Standing Static: Poor Standing Dynamic: Poor Treatment Patient was dressed with OT and showered. He also was transferred to the therapy table to assess ROM and work on stretching and ROM activities. Assessment/Needs Patient has impaired mobility, strength, endurance, balance post CVA. Patient in a chair post tx with chair alarm on, OT finishing up with patient. Rehab Potential: Fair PT Short Term Goals Short Term Goals Time Frame: Feb 04, 2019 Transfers (B,C,W/C) (FIM): 4 Gait (FIM): 1 Gait Distance Comment: 20' Gait Level of Assist: 3 Gait Assistive Device: Walker [facility] Home Goals Tele Tech Goals PT Tele Tech Goals Time Frame: Feb 18, 2019 Transfers (B,C,W/C) (FIM): 4 Sit to Lying (QC): 4 Lying-Sitting on Side/Bed(QC): 4 Sit to Stand (QC): 4 Rollin Roll Left to Right (QC): 4 Chair/Irl-vp-Igdav Xfer(QC): 4 Car Transfer (QC): 4 Gait (FIM): 2 Distance: 50' Walk 10 feet (QC): 3 Walk 10ft-Uneven Surface(QC): 3 Walk 50ft with 2 Turns (QC): 3 Gait Level of Assist: 4 Gait Assistive Device: Cane Large Base Quad Wheelchair (FIM): 6 Distance: 150' Wheelchair Level of Assist: 6 Wheel 50 feet with 2 turns (QC: 6 Stairs (FIM): 1 # of Steps: 1 1 Step (curb) (QC): 3 Stairs Level Of Assist: 4 PT Plan Problem List Problem List: Activity Tolerance, Functional Strength, Safety, Balance, Gait, Transfer, Bed Mobility, ROM Treatment/Plan Treatment Plan: Continue Plan of Care Treatment Plan: Bed Mobility, Concurrent Therapy, Education, Functional Activity Gifty, Functional Strength, Group Therapy, Gait, Safety, Therapeutic Exercise, Transfers Treatment Duration: Feb 18, 2019 Frequency: At least 5 of 7 days/Wk (IRF) Estimated Hrs Per Day: 1.5 hours per day Patient and/or Family Agrees t: Yes Safety Risks/Education Patient Education: Gait Training, Transfer Techniques, Correct Positioning, W/ C Management, Safety Issues Teaching Recipient: Patient Teaching Methods: Demonstration, Discussion Response to Teaching: Reinforcement Needed Discharge Recommendations Plan Patient will perform bed mobility and transfer training, balance and endurance training, functional strengthening, stair training, gait training, and education , to improve functional mobility and independence at home. Therapy D/C Recommendations: Home w/ Family Support Time/GCodes Time In: 0800 Time Out: 929 Total Billed Treatment Time: 80 Total Billed Treatment 1 visit EVM 10' FA 70' PT performed eval from [id number], OT performed eval from [id number]. Co treated with OT from [id number]. OT worked on dressing, bathing, UE ROM and positioning during ambulation, transfers. PT worked on bed mobility, transfers, ambulation , wheelchair mobility, LE ROM and balance during bathing and dressing. JAXON BRAUN PT Jan 28, 2019 09:43
[2019-01-28] MEDS: CLOPIDOGREL 75 MG (PLAVIX) TABLET PO SCH (09:55)
[2019-01-28] MEDS: prednisoLONE 1% OPTH (PRED FORTE) 5 ML BTL OU SCH ×2 (09:55→20:47)
[2019-01-28] MEDS: SERTRALINE 100 MG (ZOLOFT) TAB PO SCH (09:55)
[2019-01-28] MEDS: ASPIRIN 81 MG CHEW (CHILDREN'S ASA) PO SCH (09:56)
[2019-01-28] MEDS: SENNA W/DOCUSATE (SENOKOT S) TABLET PO SCH ×2 (09:56→20:39)
[2019-01-28] MEDS: POLYETHYLENE GLYCOL 17 GM (MIRALAX) PACK PO SCH ×2 (09:56→20:39)
[2019-01-28] MEDS: LIDOCAINE 4% (SALONPAS) PATCH TOP SCH (09:56)
[2019-01-28] MEDS: SODIUM CHLORIDE 1 GM TAB (NON-FORMULARY) PO SCH ×3 (09:56→20:39)
[2019-01-28] MEDS: DICLOFENAC 1% GEL 100 GM (VOLTAREN) TUBE TOP SCH ×2 (09:57→20:47)
--- NOTE | 2019-01-28 10:08 | Occupational Therapy Eval ---
OT Evaluation-General/PLF Medical Diagnosis Admission Date Jan 27, 2019 at 16:40 Medical Diagnosis: CVA with right sided hemiparesis Onset Date: Jan 23, 2019 Therapy Diagnosis Therapy Diagnosis: Decreased ADL skills, weakness, aphasia Height/Weight Height (Feet): 5 Height (Inches): 9.00 Weight (Pounds): 188 Weight (Ounces): 0.3 Precautions Precautions/Isolations: Aspiration, Fall Prevention, Standard Precautions, Pressure Ulcer Safety Interventions: Bed Exit Alarm Weight Bear Status Weight Bearing Restriction: Weight Bearing/Tolerated Referral Physician: Dr. Jalloh Referral Reason: Activity Tolerance, Self Care, Evaluation/Treatment, Strengthening/ROM Medical History Pertinent Medical History: Arthritis, CAD Current History Pt. had CVA approximately one week ago. Pt. had carotid endarterectomy for blockage. Residual right sided weakness and global aphasia. Reviewed History: Yes Social History Home: Multilevel Current Living Status: Spouse Entry Into Home: Stairs Without Railing Steps Into Home: 2 ADL-Prior Level of Function Therapy Code Descriptions/Definitions Functional [place] Measure: 0=Not Assessed/NA 4=Minimal Assistance 1=Total Assistance 5=Supervision or Setup 2=Maximal Assistance 6=Modified [place] 3=Moderate Assistance 7=Complete [place] Therapy Quality Codes: 6 Independent with activity with or without an assistive device 5 Patient requires set up or clean up by helper. Patient completes activity by themselves 4 Supervision or touching assist (CGA). [place] provide cues , steadying assist 3 The helper provides less than half the effort to complete the activity 2 The helper provides more than half the effort to complete the activity 1 Dependent. The helper does all the effort to complete an activity 7 Patient refused to complete or attempt activity 9 The patient did not perform the activity before the current illness or injury 88 Not attempted due to Medical conditions or safety concerns Functional Abilities and Goals: Independent: Patient completed the activities by him/herself, with or without an assistive device, with no assistance from a helper. Needed Some Help: Patient needed partial assistance from another person to complete activities. Dependent: A helper completed the activities for the patient. Unknown: Not Applicable: ADL PLOF Comments Pt. was known to this therapist. 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 Pt. was fully independent. Daughter states that pt. has recessed tub on first floor, and so he would ambulate up stairs to second floor to shower. 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 is unable to indicate pain. No grimace noted with movement. Appearance Pt. sitting on bed with PT when OT entered room. Mental Status/Objective Patient Orientation: Unable to Assess Pt. demonstrates receptive and expressive aphasia. At times, can follow cues but has difficulty with multiple instructions. Attachments: Lee Catheter Current Hand Dominance: Right Upper Extremity ROM Left- WFL Right- slight active movement noted at shoulder and fingers. However, pt. is inconsistent with replicating this. Upper Extremity Coordination Right- impaired. Upper Extremity Sensation OT attempts to test light touch sensation on right UE. Pt. is unable to indicate what he does or does not feel. Edema: Slight swelling noted in right hand and forearm ADL-Treatment Grooming (FIM): 2 (Max assist to brush hair.) Bathing (FIM): 2 (Pt. is able to hold washcloth and bathe chest, upper legs. Pt. able to wash hair. OT washed all other parts for him.) Shower/Bathe Self (QC): 2 Upper Body Dressing (FIM): 2 (Max assist to don shirt. Pt. is able to start shirt correctly over affected arm. Able to get left arm as well, but then has difficulty pulling over his head or straightening over his arms.) Upper Body Dressing (QC): 2 Lower Body Dressing (FIM): 1 (Pt. has difficulty following cues to sequence the steps of donning brief or pants over feet. OT does this for him.) Lower Body Dressing (QC): 1 On/Off Footwear (QC): 1 Transfers (B, C, W/C) (FIM): 1 (Please see note.) Shower Transfer (FIM): 1 (Via shower chair.) Other Treatments OT/PT completed partial co-treat due to pt's fatigue, and level of need for skilled care. Pt. agreed to shower. Max assist of one person to stand pt. with min assist of another to guide hips to shower chair. After showering and dressing, pt. taken to therapy gym. Stood at parallel bars with max assist of one person blocking right knee, holding pt., and giving cues, and assist of another person facilitating hand placement and pulling chair behind. Note that pt. has hard lean to right in stance. Ambulated length of parallel bars x 3. Multiple rest breaks needed. Right UE assessed. No abnormal tone or subluxation noted. Did note swelling and no active movement once pt. is tired. Transferred to mat and PT assessed LE strength/ROM while OT provided gentle PROM and retrograde massage to hand and forearm. Pt. unable to communicate, and so this therapist spoke with daughter regarding home set up, etc....spouse does work and is out of the house during the day. Daughter reports that before this , pt. had full ROM in bilateral UE. After treatment in gym, pt. transferred back to wheelchair with assistance. Taken to room and transferred to chair with max assist. OT stayed and provided continued PROM to right UE. Issued therapy sponge but pt. unable to squeeze or demonstrate active movement. Pillow placed in chair to elevate right UE. All needs met. Education OT Patient Education: Correct positioning, Exercise program, Instructions to caregiver, Modified ADL techniques, Progress toward Goal/Update tx plan, Purpose of tx/functional activities, Reviewed precautions, Rehab process, Transfer techniques Teaching Recipient: Patient Teaching Methods: Demonstration, Discussion Response to Teaching: Verbalize Understanding, Return Demonstration OT Short Term Goals Short Term Goals Time Frame: Feb 11, 2019 Eating(FIM): 4 Grooming(FIM): 44 Bathing(FIM): 3 Upper Body Dressing(FIM): 3 Lower Body Dressing(FIM): 3 Toileting(FIM): 4 Transfers (B,C,W/C) (FIM): 4 Toilet/Commode Transfer(FIM): 4 Shower Transfer(FIM): 4 Additional Short Term Goals: 1-Demonstrate ADL Tasks, 2-Verbalize Understanding , 3-ImproveStrength/Gifty 1=Demonstrate adherence to instructed precautions during ADL tasks. 2=Patient will verbalize/demonstrate understanding of assistive devices/ modifications for ADL. 3=Patient will improve strength/tolerance for activity to enable patient to perform ADL's. OT Care Home Goals Ceo And Founder Goals Time Frame: February 25, 2019 Eating (FIM): 6 Eating (QC): 6 Groomin Oral Hygiene (QC): 6 Bathing(FIM): 5 Shower/Bathe Self (QC): 5 Upper Body Dressing(FIM): 5 Upper Body Dressing (QC): 5 Lower Body Dressing(FIM): 5 Lower Body Dressing (QC): 5 On/Off Footwear (QC): 5 Toileting(FIM): 6 Toileting Hygiene (QC): 6 Transfers (B,C,W/C) (FIM): 6 Toilet/Commode Transfer(FIM): 6 Toilet/Commode Transfer (QC): 6 Shower Transfer(FIM): 5 Additional Goals: 1-Demonstrate ADL Tasks, 2-Verbalize Understanding, 3- ImproveStrength/Gifty 1=Demonstrate adherence to instructed precautions during ADL tasks. 2=Patient will verbalize/demonstrate understanding of assistive devices/ modifications for ADL. 3=Patient will improve strength/tolerance for activity to enable patient to perform ADL's. OT Education/Plan Problem List/Assessment Assessment: Decreased Activ Tolerance, Decreased UE Strength, Dependent Transfers, Edema, Impaired Bed Mobility, Impaired Cognition, Impaired Coordination, Impaired Funct Balance, Impaired I ADL's, Impaired Self-Care Skills, Restricted Funct UE ROM Discharge Recommendations Plan/Recommendations: Continue POC Therapy D/C Recommendations: 24 hr Supervision, Home w/ Family Support, Occupational Therapy Home Care, Scheduled Assistance Comment To be determined. Treatment Plan/Plan of Care Treatment,Training & Education: Yes Patient would benefit from OT for education, treatment and training to promote independence in ADL's, mobility, safety and/or upper extremity function for ADL' s. Plan of Care: ADL Retraining, Functional Mobility, Group Exercise/Act as Ind, UE Funct Exercise/Act Treatment Duration: February 25, 2019 Frequency: At least 5 of 7 days/Wk (IRF) Estimated Hrs Per Day: 1.5 hours per day Agreement: Yes Rehab Potential: Good Time/GCodes Start Time: 08:10 Stop Time: 09:40 Total Time Billed (hr/min): 90 Billed Treatment Time [id number] 1, [facility] OT eval [id number] ADL x 45minutes, FA x 25minutes co-treat with PAULETTE RICO OT Jan 28, 2019 10:08
--- NOTE | 2019-01-28 11:00 | NUR ---
Visited with pt's daughter Lola in the privacy of 2nd floor therapy room: She shared that her mother Mela is concerned for Jeff's dignity and personal rest. The pt is well known and loved in this community, and privacy is a challenge to maintain. Pt reportedly can verbalize minimally, and affect is flat. Staff placed a sign on the door requesting no visitors at this time. Lola shared that physician pediatrician support is welcomed by the family, and that the pt may also welcome prayer. Pt is Congregational. Offered empathic listening, compassion presence, and encouraged free expression of thoughts and feelings. Addendum: 01/29/19 at 0913 by CHRISTOPHER PIMENTEL PAST visit took place approx 0930
--- NOTE | 2019-01-28 11:00 | NUR ---
Pastoral care visit, with daughter offered support and prayer.
[2019-01-28] MEDS: BISOPROLOL 5 MG TAB (ZEBETA) PO SCH (11:23)
[2019-01-28] MEDS: amLODIPine 10 MG (NORVASC) TAB PO SCH (11:23)
[2019-01-28 11:25] VITALS: BP 147/75
--- NOTE | 2019-01-28 12:10 | CONSULTATION REPORT ---
DATE OF SERVICE: 01/28/2019 ATTENDING PHYSICIAN: Dr. Jalloh. SUMMARY: A 63-year-old white man, who sustained an ischemic stroke with the right CVA, underwent a left carotid endarterectomy at . He is here for rehabilitation; however, he has been having urinary retention. Most information was carried out from his chart as well as his . She denies that he had any voiding symptoms in the past, had nocturia maybe once or twice at the most and never had trouble emptying. No previous UTIs and no medication for prostate or bladder. IMPRESSION: Urinary retention, benign prostatic hyperplasia and/or neurogenic bladder. PLAN: Start him first on the Flomax and see how he does. We will await at least 3 days on the Flomax and then give him a trial of voiding. We may add Urecholine if needed. This was explained to the . Job ID: [id number] DocumentID: [id number] Dictated Date: 01/28/2019 11:57:02 Tail Dogger Date: 01/28/2019 12:09:33 Dictated By: CORNELIO MCCABE MD
--- NOTE | 2019-01-28 13:40 | ST Cognitive Linguistic Eval ---
Speech Evaluation-General Medical Diagnosis CVA with right sided hemiparesis Onset Date: Jan 23, 2019 Therapy Diagnosis Therapy Diagnosis: Aphasia Precautions Precautions: Fall, Aspiration Precautions/Isolations: Aspiration, Fall Prevention, Standard Precautions, Pressure Ulcer Referral Referring Physician: Dr. 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 The patient lives at home with his and was independent for most of his daily needs prior to the CVA. Subjective Patient was pleasant and attentive during the evaluation process. Language Eval: Auditory Comprehends Simple Yes/No Ques: Functional Indent/Objects Multiple Grimm: Functional Ident/Pics in Multiple Grimm: Mild Follows 1-Step Commands: Mild Follows Complex Directions: Moderate Follows General Conversations: Mild Language Eval: Verbal Language Completes Spontaneous Greeting: Mild Produces Auto, Serial Info: Severe Imitates Simple Words/Phrases: Severe Word Finding: Severe Requests Basic Needs: Severe States Basic Personal Info: Severe Expresses Complex Ideas: Severe The patient is primarily nonverbal. He was able to answer y/n a few times within the course of evaluation. Objective Cognitive Domain Attention: WNL Memory: WNL Problem Solving: Moderate Executive Functions: Moderate Visuospatial Skills: Mild Objective Formal/Standardized Tests Subtests of the Cognitive Linguistic Quick Test (CLQT) and the Western Aphasia Battery (WAB) Results The patient was unable to complete all parts of the evaluation secondary to limited verbal expression. Oral Motor/Speech Production Patient is primarily nonverbal with some ability to answer y/n questions. Impression The patient was a pleasant 63 year old who was admitted to the ARU for skilled services post CVA (01/23/2019) The patient was evaluated this date due to aphasia secondary to his CVA. The patient also has dysphagia and is currently on a puree diet level with nectar consistency liquids. The patient will receive skilled ST services for aphasia and dysphagia. Communication/Social Cognition Comprehension: 5 Expression: 1 Social Interaction: 5 Problem Solvin Memory: 5 Speech Patient Assess Expression of Ideas/Wants: Frequently (2) Understanding Verbal Content: Usually Understands (3) Brief Interview-Mental Status: Yes Repetition of Three Words: None (0) Speech Short Term Goals Short Term Goals Short Term Goals 1) The patient will demonstrate orientation to person, place time and situation with 75% accuracy provided with stimulation and choices. 2) The patient will demonstrate correct naming of ten functional simple items during therapy session. 3) The patient will vollow one-step verbal commands with mod verbal/visual cues with 80% accuracy. 4) The patient will tolerate least restrictive diet level without signs/ symptoms of aspiration. 5) The patient will utilize compensatory strategies as trained for safe oral intake at 90% given minimal cues. Speech Mcc Goals Mcc Goals 1) Patient will communicate basic wants and needs with 2-3 word phrases during therapy sessions. 2) Patient will maintain adequate nutrition/hydration via safe effective swallow function. Speech-Plan Patient/Family Goals Patient/Family Goals: The patient plans to return home with his family post rehab. Treatment Plan Speech Therapy Treatment Plan: Continue Plan of Care The patient will receive skilled ST services for aphasia and dysphagia. Treatment Duration: Feb 05, 2019 Frequency: 5 times per week Estimated Hrs Per Day: .5 hour per day Rehab Potential: Fair Barriers to Learning: New onset CVA, primarily nonverbal Pt/Family Agrees to Plan: Yes Safety Risks/Education Teaching Recipient: Patient Teaching Methods: Discussion Response to Teaching: Verbalize Understanding Education Topics Provided: Safety within his room and utilization of his call light. Time Speech Therapy Time In: 10:00 Speech Therapy Time Out: 10:15 Total Billed Time: 15 Billed Treatment Time [address] ST Jan 28, 2019 13:40
--- NOTE | 2019-01-28 14:27 | Physical Therapy Daily Note ---
PT Daily Note-Current Subjective Smiles; cooperative; agrees. Pain Numeric Pain Scale: 0-No Pain (pt does not indicate pain) Transfers Therapy Code Descriptions/Definitions Functional [place] Measure: 0=Not Assessed/NA 4=Minimal Assistance 1=Total Assistance 5=Supervision or Setup 2=Maximal Assistance 6=Modified [place] 3=Moderate Assistance 7=Complete [place] Therapy Quality Codes: 6 Independent with activity with or without an assistive device 5 Patient requires set up or clean up by helper. Patient completes activity by themselves 4 Supervision or touching assist (CGA). [place] provide cues , steadying assist 3 The helper provides less than half the effort to complete the activity 2 The helper provides more than half the effort to complete the activity 1 Dependent. The helper does all the effort to complete an activity 7 Patient refused to complete or attempt activity 9 The patient did not perform the activity before the current illness or injury 88 Not attempted due to Medical conditions or safety concerns Treatments Co treat with OT; skill of 2 clinicians required to address UE postioning and use as trunk control and posture. Sat EOB and addressed forward and back lean, weight shifting and twisting with focus on trunk movement as well as WB through the right UE and Right LE. Sit to stand x 3 reps using a henry walker; in standing focused on posture, right knee extension, even weight distribution on legs; used a mirror for feedback. Pt in bed post treatment with needs met. Assessment Current Status: Good Progress Cooperative. Participatory. Good use of the mirror for postural corrections; pt able to activate his quad left to assist in knee extension in standing. PT Short Term Goals Short Term Goals Time Frame: Feb 04, 2019 Transfers (B,C,W/C) (FIM): 4 Gait (FIM): 1 Gait Distance Comment: 20' Gait Level of Assist: 3 Gait Assistive Device: Walker Henry Wheelchair Distance: 50' PT Assisted Goals Assisted Goals PT Assisted Goals Time Frame: Feb 18, 2019 Transfers (B,C,W/C) (FIM): 4 Sit to Lying (QC): 4 Lying-Sitting on Side/Bed(QC): 4 Sit to Stand (QC): 4 Rollin Roll Left to Right (QC): 4 Chair/[id number] Xfer(QC): 4 Car Transfer (QC): 4 Gait (FIM): 2 Distance: 50' Walk 10 feet (QC): 3 Walk 10ft-Uneven Surface(QC): 3 Walk 50ft with 2 Turns (QC): 3 Gait Level of Assist: 4 Gait Assistive Device: Cane Large Base Quad Wheelchair (FIM): 6 Distance: 150' Wheelchair Level of Assist: 6 Wheel 50 feet with 2 turns (QC: 6 Stairs (FIM): 1 # of Steps: 1 1 Step (curb) (QC): 3 Stairs Level Of Assist: 4 PT Plan Problem List Problem List: Activity Tolerance, Functional Strength, Safety, Balance, Gait, Transfer, Bed Mobility Treatment/Plan Treatment Plan: Continue Plan of Care Treatment Plan: Bed Mobility, Concurrent Therapy, Education, Functional Activity Gifty, Functional Strength, Group Therapy, Gait, Safety, Therapeutic Exercise, Transfers Treatment Duration: Feb 18, 2019 Frequency: At least 5 of 7 days/Wk (IRF) Estimated Hrs Per Day: 1.5 hours per day Patient and/or Family Agrees t: Yes Safety Risks/Education Patient Education: Safety Issues Teaching Recipient: Patient Teaching Methods: Discussion Response to Teaching: Reinforcement Needed Time/GCodes Time In: 1330 Time Out: 1410 Total Billed Treatment Time: 40 Total Billed Treatment visit FA 40 SHASHI MAHAJAN PT Jan 28, 2019 14:27
--- NOTE | 2019-01-28 14:53 | Occupational Ther Daily Note ---
OT Current Status-Daily Note Subjective Pt. smiles when therapist walks into room. Appearance Pt. in bed. Mental Status/Objective Patient Orientation: Unable to Assess Therapy Code Descriptions/Definitions Functional [place] Measure: 0=Not Assessed/NA 4=Minimal Assistance 1=Total Assistance 5=Supervision or Setup 2=Maximal Assistance 6=Modified [place] 3=Moderate Assistance 7=Complete [place] ADL-Treatment Therapy Code Descriptions/Definitions Functional [place] Measure: 0=Not Assessed/NA 4=Minimal Assistance 1=Total Assistance 5=Supervision or Setup 2=Maximal Assistance 6=Modified [place] 3=Moderate Assistance 7=Complete [place] Therapy Quality Codes: 6 Independent with activity with or without an assistive device 5 Patient requires set up or clean up by helper. Patient completes activity by themselves 4 Supervision or touching assist (CGA). [place] provide cues , steadying assist 3 The helper provides less than half the effort to complete the activity 2 The helper provides more than half the effort to complete the activity 1 Dependent. The helper does all the effort to complete an activity 7 Patient refused to complete or attempt activity 9 The patient did not perform the activity before the current illness or injury 88 Not attempted due to Medical conditions or safety concerns Transfers (B, C, W/C) (FIM): 1 Other Treatment OT/PT co-treat due to pt's need for skilled therapy and fatigue level. Pt. agrees to treatment. Transferred supine-sit with mod assist. Stood 3 times with mirror in front of pt. Pt. required assist of 2 people. Stood approximately 2-4 minutes each time. PT focused on balance and UE while OT focused on posture and midline. Pt. leans to right but with cues, is able to weight shift to left. Worked on sitting posture and upright sitting. Leaned forward and back, and side to side. Pt. able to demonstrate AROM in right UE to move in flexion while seated. Pt. layed back down with mod assist. Dependent assist for bed mobility. Education OT Patient Education: Modified ADL techniques, Progress toward Goal/Update tx plan, Purpose of tx/functional activities, Reviewed precautions, Rehab process, Transfer techniques Teaching Recipient: Patient Teaching Methods: Demonstration Response to Teaching: Verbalize Understanding, Return Demonstration OT Short Term Goals Short Term Goals Time Frame: Feb 11, 2019 Eating(FIM): 4 Grooming(FIM): 44 Bathing(FIM): 3 Upper Body Dressing(FIM): 3 Lower Body Dressing(FIM): 3 Toileting(FIM): 4 Transfers (B,C,W/C) (FIM): 4 Toilet/Commode Transfer(FIM): 4 Shower Transfer(FIM): 4 Additional Short Term Goals: 1-Demonstrate ADL Tasks, 2-Verbalize Understanding , 3-ImproveStrength/Gifty 1=Demonstrate adherence to instructed precautions during ADL tasks. 2=Patient will verbalize/demonstrate understanding of assistive devices/ modifications for ADL. 3=Patient will improve strength/tolerance for activity to enable patient to perform ADL's. OT [employer] Supervisor Goals [employer] Supervisor Goals Time Frame: February 25, 2019 Eating (FIM): 6 Eating (QC): 6 Groomin Oral Hygiene (QC): 6 Bathing(FIM): 5 Shower/Bathe Self (QC): 5 Upper Body Dressing(FIM): 5 Upper Body Dressing (QC): 5 Lower Body Dressing(FIM): 5 Lower Body Dressing (QC): 5 On/Off Footwear (QC): 5 Toileting(FIM): 6 Toileting Hygiene (QC): 6 Transfers (B,C,W/C) (FIM): 6 Toilet/Commode Transfer(FIM): 6 Toilet/Commode Transfer (QC): 6 Shower Transfer(FIM): 5 Additional Goals: 1-Demonstrate ADL Tasks, 2-Verbalize Understanding, 3- ImproveStrength/Gifty 1=Demonstrate adherence to instructed precautions during ADL tasks. 2=Patient will verbalize/demonstrate understanding of assistive devices/ modifications for ADL. 3=Patient will improve strength/tolerance for activity to enable patient to perform ADL's. OT Education/Plan Problem List/Assessment Assessment: Decreased Activ Tolerance, Decreased UE Strength, Dependent Transfers, Impaired Bed Mobility, Impaired Funct Balance, Impaired I ADL's, Impaired Self-Care Skills Discharge Recommendations Plan/Recommendations: Continue POC Treatment Plan/Plan of Care Patient would benefit from OT for education, treatment and training to promote independence in ADL's, mobility, safety and/or upper extremity function for ADL' s. Plan of Care: ADL Retraining, Functional Mobility, Group Exercise/Act as Ind, UE Funct Exercise/Act Treatment Duration: February 25, 2019 Frequency: At least 5 of 7 days/Wk (IRF) Estimated Hrs Per Day: 1.5 hours per day Agreement: Yes Rehab Potential: Good Time/GCodes Start Time: 13:30 Stop Time: 14:10 Total Time Billed (hr/min): 40 Billed Treatment Time 1, FA x 40minutes PAULETTE HALL OT Jan 28, 2019 14:53
[2019-01-28] MEDS: TAMSULOSIN 0.4 MG (FLOMAX) CAP PO SCH (17:47)
[2019-01-28 17:52] VITALS: BP 134/78
[2019-01-28] MEDS: ATORVASTATIN 80 MG (LIPITOR) TABLET PO SCH (20:39)
[2019-01-28] MEDS: LIDOCAINE PATCH REMOVAL TP SCH (20:48)
[2019-01-29 05:04] VITALS: BP 124/57
[2019-01-29 08:25] VITALS: BP 130/72
[2019-01-29] MEDS: SODIUM CHLORIDE 1 GM TAB (NON-FORMULARY) PO SCH ×3 (08:26→20:18)
[2019-01-29] MEDS: LIDOCAINE 4% (SALONPAS) PATCH TOP SCH (08:27)
[2019-01-29] MEDS: DICLOFENAC 1% GEL 100 GM (VOLTAREN) TUBE TOP SCH ×2 (08:27→20:19)
[2019-01-29] MEDS: prednisoLONE 1% OPTH (PRED FORTE) 5 ML BTL OU SCH ×2 (08:27→20:19)
[2019-01-29] MEDS: SERTRALINE 100 MG (ZOLOFT) TAB PO SCH (08:27)
[2019-01-29] MEDS: BISOPROLOL 5 MG TAB (ZEBETA) PO SCH (08:28)
[2019-01-29] MEDS: CLOPIDOGREL 75 MG (PLAVIX) TABLET PO SCH (08:28)
[2019-01-29] MEDS: ASPIRIN 81 MG CHEW (CHILDREN'S ASA) PO SCH (08:28)
[2019-01-29] MEDS: amLODIPine 10 MG (NORVASC) TAB PO SCH (08:28)
--- NOTE | 2019-01-29 08:53 | PM&R Progress Note ---
Subjective HPI/CC On Admission Date Seen by Provider: Jan 29, 2019 Time Seen by Provider: 08:35 CC: Ischemic stroke HPI: This is a 63-year-old white male of Dr. Schultz who presented to via [facility] [place] ER on 01/23/19 with abrupt onset of severe weakness on the right side underwent stroke workup and found to be a candidate for TPA then shipped to [facility] and subsequently underwent left carotid endarterectomy on 01/25/19 but still remains with right sided weakness with severe expressive aphasia. Reviewed the entire record at [facility] and reviewed his home medications and patient appears to be ready to start aggressive physical therapy in order regain function. His drove him from and reports that he did well on the trip. His [id number] is a nurse and she helped reviewed the discharge med list. He is currently on. Diet with nectar thickened liquids. CT scan via [facility] [place] and [facility] showed a left ischemic process of the MCA distribution. During hospital course the he had no significant clinical decompensation. Patient requires inpatient rehabilitation with 24 hour physician supervision to monitor her labile blood pressure and monitor for any hemorrhagic residual from ischemic stroke that cannot be provided in any type of lower level of care. 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 Subjective/Events-last exam Making significant progress since arriving Fri When I walked in today I told him Good morning and he stated "Good Morning" back to me clearly and concisely Moving right hand more Transferring well Participating well with PT/OT Compliant with all meds and treatments Speech therapy will work with him today for dysphagia and hopefully free up some restrictions if not an aspiration risk No pain is reported Giving thumbs up signs on left hand to communicate Lee cath in place for 3 days before attempting to DC per Dr Brantley and maintained on Flomax int he meantime Large BM today Review of Systems General: Fatigue Neurological: Weakness, Numbness, Incoordination, Change in speech Objective Exam Vital Signs Vital Signs Date Time Temp Pulse Resp B/P (MAP) Pulse Ox O2 Delivery O2 Flow Rate FiO2 01/29/19 08:25 71 130/72 (91) 01/29/19 05:04 97.6 18 95 Room Air Capillary Refill : General Appearance: No Apparent Distress, WD/WN, Chronically ill HEENT: PERRL/EOMI, Pharynx Normal, Other (right facial droop) Neck: Full Range of Motion, Normal Inspection, Non Tender, Supple, Other ( incision left neck intact) Respiratory: Chest Non Tender, Lungs Clear, Normal Breath Sounds, No Accessory Muscle Use, No Respiratory Distress Cardiovascular: Regular Rate, Rhythm, No Edema, No Gallop, No JVD, No Murmur, Normal Peripheral Pulses Gastrointestinal: Normal Bowel Sounds, No Organomegaly, No Pulsatile Mass, Non Tender, Soft Back: Normal Inspection, No CVA Tenderness, No Vertebral Tenderness Extremity: Normal Capillary Refill, Normal Inspection, Non Tender, No Calf Tenderness, No Pedal Edema, Other (limited ROM right side and mild deficit left) Neurologic/Psychiatric: Alert, Abnormal chief warden II-XII, Abnormal Gait, Aphasia ( improved today 01/29/19), Depressed Affect, Facial Droop (right), Motor Weakness ( right) Skin: Normal Color, Warm/Dry, Other (improved left CEA incision site) Lymphatic: No Adenopathy Results/Procedures Lab Patient resulted labs reviewed. Assessment/Plan Assessment and Plan Assess & Plan/Chief Complaint Assessment: (1) Ischemic stroke (2) S/P carotid endarterectomy 01/25/19 with no improvement in right sided weakness (3) PVD (peripheral vascular disease) (4) CAD (coronary artery disease) (5) Expressive aphasia (6) Right sided weakness (7) Anemia (8) Hypertension (9) S/P cataract extraction (10) Dysphagia (11) Hyperlipidemia (12) Constipation-resolved 01/29/19 after meds (13) Klinefelter syndrome (14) Received intravenous tissue plasminogen activator (tPA) in emergency department 01/23/[address] [facility] ER (15) Depression (16) Former smoker (17) Hyponatremia improved on salt tablets (18) DVT prophylaxis (19) Urinary retention-consulted Urology (20) Lee catheter in place Plan: Consult Dr Brantley for Urology is appreciated DVT PPx with Heparin Monitor for pain Left cataract eye care with eye drops (1) Ischemic stroke (2) Anemia (3) Expressive aphasia (4) CAD (coronary artery disease) (5) Dysphagia (6) Hyperlipidemia (7) PVD (peripheral vascular disease) (8) Hypertension (9) Right sided weakness (10) Klinefelter syndrome (11) Constipation (12) Depression (13) Hyponatremia (14) DVT prophylaxis (15) Received intravenous tissue plasminogen activator (tPA) in emergency department (16) Urinary retention (17) Lee catheter in place (18) S/P carotid endarterectomy (19) S/P cataract extraction (20) Former smoker Clinical Quality Measures DVT/VTE Risk/Contraindication: Risk Factor Score Per Nursin RFS Level Per Nursing on Admit: 4+=Very High BOOGIE WHITTEN DO Jan 29, 2019 08:53
[2019-01-29] MEDS: POLYETHYLENE GLYCOL 17 GM (MIRALAX) PACK PO SCH ×2 (09:00→20:12)
[2019-01-29] MEDS: SENNA W/DOCUSATE (SENOKOT S) TABLET PO SCH ×2 (09:00→20:12)
--- NOTE | 2019-01-29 11:02 | Physical Therapy Daily Note ---
PT Daily Note-Current Subjective Patient in bed pre tx, agrees to PT, he smells like he has had a BM in bed and will need to be cleaned and changed and put on bedside commode to finish. Will be co-treating with OT for treatment this morning due to poor balance, sitting balance, endurance, strength. Appearance Patient in recliner post tx with nurse call, tray, phone, family in the room. Mental Status Patient Orientation: Person, Unable to Assess, Non-Verbal/Aphasic Transfers Therapy Code Descriptions/Definitions Functional [place] Measure: 0=Not Assessed/NA 4=Minimal Assistance 1=Total Assistance 5=Supervision or Setup 2=Maximal Assistance 6=Modified [place] 3=Moderate Assistance 7=Complete [place] Therapy Quality Codes: 6 Independent with activity with or without an assistive device 5 Patient requires set up or clean up by helper. Patient completes activity by themselves 4 Supervision or touching assist (CGA). [place] provide cues , steadying assist 3 The helper provides less than half the effort to complete the activity 2 The helper provides more than half the effort to complete the activity 1 Dependent. The helper does all the effort to complete an activity 7 Patient refused to complete or attempt activity 9 The patient did not perform the activity before the current illness or injury 88 Not attempted due to Medical conditions or safety concerns Transfers (B, C, W/C) (FIM): 3 Scootin Rollin Supine to/from Sit: 3 Sit to/from Stand: 4 Bed to/from Chair: 4 Improved stand pivot, min assist to the right side, CGA to the left. Patient needs cues for hand placement and positioning. Gait Training Gait (FIM): 1 Distance: 20'x3 Gait Level of Assist: 4 Gait Persons Needed: 2 Gait Assistive Device: FWW Patient ambulated 20'x3 with a rolling walker with min assist of 2. Patient needs cues to advance his right leg, assist guiding the walker and occasional assist keeping his catalytic converter operator on the walker on the right side (he can catalytic converter operator the walker most of the time). Patient ambulates slowly and has poor step-through on the right side. Wheelchair Training Does the Pt Use a Wheelchair?: Yes Wheelchair (FIM): 2 Distance: 80' Wheelchair Level of Assist: 4 Type of Wheelchair: Manual Treatments Bed mobility and transfers, ambulation, wheelchair mobility. Patient had a BM in bed and needed to be cleaned and was put on the commode and then cleaned and dressed and into wheelchair and taken to therapy gym. Patient also sat on therapy table and practiced sitting balance, limits of stability training, reaching for cones, throwing gil bags, reaching for other objects, supine LE ex (bridges, right leg extension/flexion), RLE ROM. PT worked on transfers, standing during toileting, wheelchair mobility, balance training, ROM and strengthening, and ambulation. OT worked on cleaning and dressing, UE ROM and positioning, ambulation and transfers and balance training. Assessment Current Status: Fair Progress improved sitting balance and ambulation PT Short Term Goals Short Term Goals Time Frame: Feb 04, 2019 Transfers (B,C,W/C) (FIM): 4 Gait (FIM): 1 Gait Distance Comment: 20' Gait Level of Assist: 3 Gait Assistive Device: Walker Henry Wheelchair Distance: 50' PT Ship Runner Goals Ship Runner Goals PT [facility] Goals Time Frame: Feb 18, 2019 Transfers (B,C,W/C) (FIM): 4 Sit to Lying (QC): 4 Lying-Sitting on Side/Bed(QC): 4 Sit to Stand (QC): 4 Rollin Roll Left to Right (QC): 4 Chair/Khp-ft-Wgvsy Xfer(QC): 4 Car Transfer (QC): 4 Gait (FIM): 2 Distance: 50' Walk 10 feet (QC): 3 Walk 10ft-Uneven Surface(QC): 3 Walk 50ft with 2 Turns (QC): 3 Gait Level of Assist: 4 Gait Assistive Device: Cane Large Base Quad Wheelchair (FIM): 6 Distance: 150' Wheelchair Level of Assist: 6 Wheel 50 feet with 2 turns (QC: 6 Stairs (FIM): 1 # of Steps: 1 1 Step (curb) (QC): 3 Stairs Level Of Assist: 4 PT Plan Problem List Problem List: Activity Tolerance, Functional Strength, Safety, Balance, Gait, Transfer, Bed Mobility, ROM Treatment/Plan Treatment Plan: Continue Plan of Care Treatment Plan: Bed Mobility, Concurrent Therapy, Education, Functional Activity Gifty, Functional Strength, Group Therapy, Gait, Safety, Therapeutic Exercise, Transfers Treatment Duration: Feb 18, 2019 Frequency: At least 5 of 7 days/Wk (IRF) Estimated Hrs Per Day: 1.5 hours per day Patient and/or Family Agrees t: Yes Safety Risks/Education Patient Education: Gait Training, Transfer Techniques, Correct Positioning, W/ C Management, Safety Issues Teaching Recipient: Patient Teaching Methods: Demonstration, Discussion Response to Teaching: Reinforcement Needed Time/GCodes Time In: 929 Time Out: 1100 Total Billed Treatment Time: 90 Total Billed Treatment 1 visit GT 15' NM 30' FA 45' JAXON BRAUN PT Jan 29, 2019 11:02
--- NOTE | 2019-01-29 11:02 | Occupational Ther Daily Note ---
OT Current Status-Daily Note Subjective Pt alert, lying in bed. Pt smiled and nodded head when asked ready for therapy then verbalized yes. Pt did not demonstrate through gestures or facial expressions any pain. Mental Status/Objective Patient Orientation: Person, Place, Non-Verbal/Aphasic Therapy Code Descriptions/Definitions Functional [place] Measure: 0=Not Assessed/NA 4=Minimal Assistance 1=Total Assistance 5=Supervision or Setup 2=Maximal Assistance 6=Modified [place] 3=Moderate Assistance 7=Complete [place] ADL-Treatment OT/PT co-treat due to decreased activity, mobility and need for skilled instruction/care. Pt fatigues quickly and requires recovery breaks throughout treatment. PT working on transfers, standing, ambulation and balance. OT working on ADLs, functional transfers, sitting balance (dynamic/static) and maintaining midline posture. Pt is demonstrating increased active movement with R UE. Increased clinical specialty rep strength while ambulating in parallel bars and with FWW. Pt continues to need facilitation at tricep to maintain elbow extension with wt bearing. Pt able to clinical specialty rep cones and release in designated area 6x's then required active assistive to complete 10x's. Close SBA when working on core strength with leaning side to side and front to back. Pt able to complete 3 reps of AROM shldr extension and elbow flex/ext without resistance then AAROM for 5 reps. Pt demonstrating fair w/c mobility, assist with steering as pt propels with L UE. Min A with SPT. Pt transferred to [facility] and was able to cleanse justina area, max A for buttocks. Max A to don/doff lower body clothing, pt able to lift feet to initiate over feet. See PT note for ambulation with FWW in hallway. After therapy, pt sitting in recliner with call light in reach. Family present in room. All needs met in room. Therapy Code Descriptions/Definitions Functional [place] Measure: 0=Not Assessed/NA 4=Minimal Assistance 1=Total Assistance 5=Supervision or Setup 2=Maximal Assistance 6=Modified [place] 3=Moderate Assistance 7=Complete [place] Therapy Quality Codes: 6 Independent with activity with or without an assistive device 5 Patient requires set up or clean up by helper. Patient completes activity by themselves 4 Supervision or touching assist (CGA). [place] provide cues , steadying assist 3 The helper provides less than half the effort to complete the activity 2 The helper provides more than half the effort to complete the activity 1 Dependent. The helper does all the effort to complete an activity 7 Patient refused to complete or attempt activity 9 The patient did not perform the activity before the current illness or injury 88 Not attempted due to Medical conditions or safety concerns Lower Body Dressing (FIM): 2 Lower Body Dressing (QC): 2 On/Off Footwear (QC): 2 Toileting (FIM): 2 Toileting Hygiene (QC): 2 OT Short Term Goals Short Term Goals Time Frame: Feb 11, 2019 Eating(FIM): 4 Grooming(FIM): 44 Bathing(FIM): 3 Upper Body Dressing(FIM): 3 Lower Body Dressing(FIM): 3 Toileting(FIM): 4 Transfers (B,C,W/C) (FIM): 4 Toilet/Commode Transfer(FIM): 4 Shower Transfer(FIM): 4 Additional Short Term Goals: 1-Demonstrate ADL Tasks, 2-Verbalize Understanding , 3-ImproveStrength/Gifty 1=Demonstrate adherence to instructed precautions during ADL tasks. 2=Patient will verbalize/demonstrate understanding of assistive devices/ modifications for ADL. 3=Patient will improve strength/tolerance for activity to enable patient to perform ADL's. OT Truck Body Builder Goals Truck Body Builder Goals Time Frame: February 25, 2019 Eating (FIM): 6 Eating (QC): 6 Groomin Oral Hygiene (QC): 6 Bathing(FIM): 5 Shower/Bathe Self (QC): 5 Upper Body Dressing(FIM): 5 Upper Body Dressing (QC): 5 Lower Body Dressing(FIM): 5 Lower Body Dressing (QC): 5 On/Off Footwear (QC): 5 Toileting(FIM): 6 Toileting Hygiene (QC): 6 Transfers (B,C,W/C) (FIM): 6 Toilet/Commode Transfer(FIM): 6 Toilet/Commode Transfer (QC): 6 Shower Transfer(FIM): 5 Additional Goals: 1-Demonstrate ADL Tasks, 2-Verbalize Understanding, 3- ImproveStrength/Gifty 1=Demonstrate adherence to instructed precautions during ADL tasks. 2=Patient will verbalize/demonstrate understanding of assistive devices/ modifications for ADL. 3=Patient will improve strength/tolerance for activity to enable patient to perform ADL's. OT Education/Plan Problem List/Assessment Assessment: Decreased Activ Tolerance, Decreased UE Strength, Impaired Bed Mobility, Impaired Coordination, Impaired Funct Balance, Impaired I ADL's, Impaired Self-Care Skills, Restricted Funct UE ROM Discharge Recommendations Plan/Recommendations: Continue POC Treatment Plan/Plan of Care Patient would benefit from OT for education, treatment and training to promote independence in ADL's, mobility, safety and/or upper extremity function for ADL' s. Plan of Care: ADL Retraining, Functional Mobility, Group Exercise/Act as Ind, UE Funct Exercise/Act Treatment Duration: February 25, 2019 Frequency: At least 5 of 7 days/Wk (IRF) Estimated Hrs Per Day: 1.5 hours per day Agreement: Yes Rehab Potential: Good Time/GCodes Start Time: 09:30 Stop Time: 11:00 Total Time Billed (hr/min): 90 Billed Treatment Time 1 visit-ADL 2 (25 min) FA 1 (20 min) NM 3 (45 min) co-treat with PT 90 min SHASHI SIMS Jan 29, 2019 11:02
--- NOTE | 2019-01-29 13:06 | Occupational Ther Daily Note ---
OT Current Status-Daily Note Subjective Pt alert, sitting in recliner. Family present in room. Agrees to therapy. Mental Status/Objective Patient Orientation: Person, Place, Non-Verbal/Aphasic Therapy Code Descriptions/Definitions Functional [place] Measure: 0=Not Assessed/NA 4=Minimal Assistance 1=Total Assistance 5=Supervision or Setup 2=Maximal Assistance 6=Modified [place] 3=Moderate Assistance 7=Complete [place] ADL-Treatment Therapy Code Descriptions/Definitions Functional [place] Measure: 0=Not Assessed/NA 4=Minimal Assistance 1=Total Assistance 5=Supervision or Setup 2=Maximal Assistance 6=Modified [place] 3=Moderate Assistance 7=Complete [place] Therapy Quality Codes: 6 Independent with activity with or without an assistive device 5 Patient requires set up or clean up by helper. Patient completes activity by themselves 4 Supervision or touching assist (CGA). [place] provide cues , steadying assist 3 The helper provides less than half the effort to complete the activity 2 The helper provides more than half the effort to complete the activity 1 Dependent. The helper does all the effort to complete an activity 7 Patient refused to complete or attempt activity 9 The patient did not perform the activity before the current illness or injury 88 Not attempted due to Medical conditions or safety concerns Eating (FIM): 5 (Set up assistance required. Using regular utensils to eat. Able to bring cup to mouth. Uses L UE at this time.) Eating (QC): 4 Other Treatment Completed AROM and AAROM. Pt educated on self ROM, able to complete with skilled instruction and guidance. Pt demonstrated active movement with finger ext/flex, forearm sup/pron, elbow flex/ext and wrist ext by completing 5 reps each before fatigue. No tricep or shldr elevation/depression noted at this time. After therapy, pt sitting in recliner with call light/phone in reach. All needs met in room. OT Short Term Goals Short Term Goals Time Frame: Feb 11, 2019 Eating(FIM): 4 Grooming(FIM): 44 Bathing(FIM): 3 Upper Body Dressing(FIM): 3 Lower Body Dressing(FIM): 3 Toileting(FIM): 4 Transfers (B,C,W/C) (FIM): 4 Toilet/Commode Transfer(FIM): 4 Shower Transfer(FIM): 4 Additional Short Term Goals: 1-Demonstrate ADL Tasks, 2-Verbalize Understanding , 3-ImproveStrength/Gifty 1=Demonstrate adherence to instructed precautions during ADL tasks. 2=Patient will verbalize/demonstrate understanding of assistive devices/ modifications for ADL. 3=Patient will improve strength/tolerance for activity to enable patient to perform ADL's. OT Enforcement Officer Goals Alf Goals Time Frame: February 25, 2019 Eating (FIM): 6 Eating (QC): 6 Groomin Oral Hygiene (QC): 6 Bathing(FIM): 5 Shower/Bathe Self (QC): 5 Upper Body Dressing(FIM): 5 Upper Body Dressing (QC): 5 Lower Body Dressing(FIM): 5 Lower Body Dressing (QC): 5 On/Off Footwear (QC): 5 Toileting(FIM): 6 Toileting Hygiene (QC): 6 Transfers (B,C,W/C) (FIM): 6 Toilet/Commode Transfer(FIM): 6 Toilet/Commode Transfer (QC): 6 Shower Transfer(FIM): 5 Additional Goals: 1-Demonstrate ADL Tasks, 2-Verbalize Understanding, 3- ImproveStrength/Gifty 1=Demonstrate adherence to instructed precautions during ADL tasks. 2=Patient will verbalize/demonstrate understanding of assistive devices/ modifications for ADL. 3=Patient will improve strength/tolerance for activity to enable patient to perform ADL's. OT Education/Plan Problem List/Assessment Assessment: Decreased Activ Tolerance, Decreased UE Strength, Impaired Bed Mobility, Impaired Cognition, Impaired Coordination, Impaired Funct Balance, Impaired I ADL's, Impaired Self-Care Skills, Restricted Funct UE ROM Discharge Recommendations Plan/Recommendations: Continue POC Treatment Plan/Plan of Care Patient would benefit from OT for education, treatment and training to promote independence in ADL's, mobility, safety and/or upper extremity function for ADL' s. Plan of Care: ADL Retraining, Functional Mobility, Group Exercise/Act as Ind, UE Funct Exercise/Act Treatment Duration: February 25, 2019 Frequency: At least 5 of 7 days/Wk (IRF) Estimated Hrs Per Day: 1.5 hours per day Agreement: Yes Rehab Potential: Good Time/GCodes Start Time: 12:30 Stop Time: 12:45 Total Time Billed (hr/min): 15 Billed Treatment Time 1 visit-NM1 (15 min) SHASHI SIMS Jan 29, 2019 13:05
--- NOTE | 2019-01-29 14:05 | Physical Therapy Daily Note ---
PT Daily Note-Current Subjective Patient in bed pre tx, agrees to PT, does not indicate that he has any pain. Appearance Patient in bed post tx with nurse call, phone, tray, bed alarm on. Mental Status Patient Orientation: Person, Unable to Assess, Non-Verbal/Aphasic Transfers Therapy Code Descriptions/Definitions Functional [place] Measure: 0=Not Assessed/NA 4=Minimal Assistance 1=Total Assistance 5=Supervision or Setup 2=Maximal Assistance 6=Modified [place] 3=Moderate Assistance 7=Complete [place] Therapy Quality Codes: 6 Independent with activity with or without an assistive device 5 Patient requires set up or clean up by helper. Patient completes activity by themselves 4 Supervision or touching assist (CGA). [place] provide cues , steadying assist 3 The helper provides less than half the effort to complete the activity 2 The helper provides more than half the effort to complete the activity 1 Dependent. The helper does all the effort to complete an activity 7 Patient refused to complete or attempt activity 9 The patient did not perform the activity before the current illness or injury 88 Not attempted due to Medical conditions or safety concerns Exercises Supine Ex: Bridging, Ankle pumps, Heel Slides, Short Arc Quads, Straight leg raise, Hip abd/add Supine Reps: 15 (exercises with only RLE except for bridging. PROM with AP.) Treatments LE exercises Assessment Current Status: Fair Progress improved AROM PT Short Term Goals Short Term Goals Time Frame: Feb 04, 2019 Transfers (B,C,W/C) (FIM): 4 Gait (FIM): 1 Gait Distance Comment: 20' Gait Level of Assist: 3 Gait Assistive Device: Walker Henry Wheelchair Distance: 80' PT Custodial Goals Fitness Attendant Goals PT Custodial Goals Time Frame: Feb 18, 2019 Transfers (B,C,W/C) (FIM): 4 Sit to Lying (QC): 4 Lying-Sitting on Side/Bed(QC): 4 Sit to Stand (QC): 4 Rollin Roll Left to Right (QC): 4 Chair/Fwe-la-Skxxo Xfer(QC): 4 Car Transfer (QC): 4 Gait (FIM): 2 Distance: 50' Walk 10 feet (QC): 3 Walk 10ft-Uneven Surface(QC): 3 Walk 50ft with 2 Turns (QC): 3 Gait Level of Assist: 4 Gait Assistive Device: Cane Large Base Quad Wheelchair (FIM): 6 Distance: 150' Wheelchair Level of Assist: 6 Wheel 50 feet with 2 turns (QC: 6 Stairs (FIM): 1 # of Steps: 1 1 Step (curb) (QC): 3 Stairs Level Of Assist: 4 PT Plan Problem List Problem List: Activity Tolerance, Functional Strength, Safety, Balance, Gait, Transfer, Bed Mobility, ROM Treatment/Plan Treatment Plan: Continue Plan of Care Treatment Plan: Bed Mobility, Concurrent Therapy, Education, Functional Activity Gifty, Functional Strength, Group Therapy, Gait, Safety, Therapeutic Exercise, Transfers Treatment Duration: Feb 18, 2019 Frequency: At least 5 of 7 days/Wk (IRF) Estimated Hrs Per Day: 1.5 hours per day Patient and/or Family Agrees t: Yes Safety Risks/Education Patient Education: Correct Positioning, Safety Issues Teaching Recipient: Patient Teaching Methods: Demonstration, Discussion Response to Teaching: Reinforcement Needed Time/GCodes Time In: 1350 Time Out: 1405 Total Billed Treatment Time: 15 Total Billed Treatment 1 visit EX 15' JAXON BRAUN PT Jan 29, 2019 14:05
--- NOTE | 2019-01-29 14:21 | ST Dysphagia Evaluation ---
Speech Evaluation-General Medical Diagnosis CVA with right sided hemiparesis Onset Date: Jan 23, 2019 Therapy Diagnosis Therapy Diagnosis: Oropharyngeal Dysphagia Precautions Precautions: Fall, Aspiration Precautions/Isolations: Aspiration, Fall Prevention, Standard Precautions, Pressure Ulcer Referral Referring Physician: Dr. Jalloh Reason for Referral: Evaluation/Treatment Medical History Pertinent Medical History: Arthritis, CAD Reviewed History: Yes Social History Current Living Status: Spouse Speech PLF/Current-Dysphagia Prior Level of Function Prior to his CVA the patient was eating/drinking anything he wanted. Subjective The patient was pleasant and cooperative with the Bedside Dysphagia Evaluation Cognitive Status Patient Orientation: Person, Place, Non-Verbal/Aphasic, Situation Oral Motor Skills Dentition: Natural Current Food Consistancy: Pureed, [place] Liquids Ability to Follow Directions: Good Oral Expression Ability: Moderate Impairment Face Facial Symmetry: Asymmetrical Right side droop Oral-Facial Assessment Labial Seal Description: Reduced ROM, Droops Right, Poor Coordination Smile: Droops Right Puff Cheeks: Reduced Strength Lingual Protrusion: Abnormal Lingual ROM: Abnormal Lingual Strength: Abnormal Pharynx Velopharyngeal Move.: Normal Volitional Dry Swallow: Yes Voluntary Cough: Yes Dysphagia Evaluation Consistencies Presented: Thin Liquid, Mechanical Soft, [place] Thick Liquid, Ground, Pureed Oral Phase: Reduced Oral Transit Ground meats were dryer and the patient had some difficulty with bolus management. Pharyngeal Phase: Decreased A/P Bolus Transit Ground meats were dryer and the patient had some difficulty with bolus management. Dietary Recommendations: Mechanical Soft Liquid Recommendations: Thin Swallowing Precautions: Alternate Liquids/Solids, Double Swallow, Decreased Rate of Oral Intake, Liquids from Straw, Small Bites and Sips, Sitting Upright 90 Degrees, Sitting 90 Degrees 30 Post Intake Dysphagia Evaluation Summary The patient is a 63 year old male who had a CVA on 01/23/19. The patient was admitted to the ARU for strengthening and all therapies prior to his return home. The patient is primarily nonverbal, however he has been able to speak more words voluntarily today. The patient was on puree and nectar consistency liquids upon his arrival to the ARU. A Bedside Dysphagia Evaluation was completed this date with an upgrade in diet ordered to a Dysphagia II with thin liquids. His nurse was advised of the upgrade. Barriers to Learning New onset CVA Speech Short Term Goals Short Term Goals Short Term Goals 1) The patient will demonstrate orientation to person, place time and situation with 75% accuracy provided with stimulation and choices. 2) The patient will demonstrate correct naming of ten functional simple items during therapy session. 3) The patient will vollow one-step verbal commands with mod verbal/visual cues with 80% accuracy. 4) The patient will tolerate least restrictive diet level without signs/ symptoms of aspiration. 5) The patient will utilize compensatory strategies as trained for safe oral intake at 90% given minimal cues. Speech Hand I Thermal Cutter Goals Hand I Thermal Cutter Goals 1) Patient will communicate basic wants and needs with 2-3 word phrases during therapy sessions. 2) Patient will maintain adequate nutrition/hydration via safe effective swallow function. Speech-Plan Patient/Family Goals Patient/Family Goals: The patient plans to return home post rehab. Treatment Plan Speech Therapy Treatment Plan: Continue Plan of Care The patient will receive skilled ST services for dysphagia. Treatment Duration: Feb 05, 2019 Frequency: 5 times per week Estimated Hrs Per Day: .5 hour per day Rehab Potential: Good Barriers to Learning: New onset CVA Pt/Family Agrees to Plan: Yes Safety Risks/Education Teaching Recipient: Patient Teaching Methods: Discussion Response to Teaching: Verbalize Understanding Education Topics Provided: Safety of oral intake strategies. Time Speech Therapy Time In: 11:30 Speech Therapy Time Out: 12:00 Total Billed Time: 30 Billed Treatment Time 1, GLORIA DIA BETHANIA ST Jan 29, 2019 14:21
--- NOTE | 2019-01-29 14:40 | NUR ---
CREATIVE ART THERAPIST met with patient to complete initial assessment. Due to severe aphasia, patient is unable to verbalize responses. CREATIVE ART THERAPIST then met with patient's , Mela to obtain assessment information. Patient admitted to ARU from with significant deficits following CVA. 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 Patient and spouse reside in a 2 level home in [place] [facility]; however they only utilize main level. The home has 2 small steps at the entrance without handrails, but with post in place for support. Primary contact identified as Mela at [phone] and secondary contact as daughter Lola Quintanilla at [phone], both work multimedia engineer daytime hours. PCP identified as Dr. Schultz and rotary drier operator as Dr. Owen of [facility]. Per information received from patient's patient's primary insurance should be [facility] through his employer, while secondary insurance of [facility] through her employer in tertiary insurance as Medicare part a only. CREATIVE ART THERAPIST is working to clarify insurance information as initial authorization for ARU placement was obtained through [facility], which is spouse's insurance. MS damaris kay has reached out to manager case management, Josh at [facility] for further clarification. CREATIVE ART THERAPIST reviewed typical ARU length of stay and weekly team conferences, patient nor spouse expressed concerns. CREATIVE ART THERAPIST will continue to follow for additional needs.
[2019-01-29 15:26] VITALS: BP 134/75
[2019-01-29] MEDS: TAMSULOSIN 0.4 MG (FLOMAX) CAP PO SCH (17:25)
[2019-01-29] MEDS: ATORVASTATIN 80 MG (LIPITOR) TABLET PO SCH (20:18)
[2019-01-29] MEDS: LIDOCAINE PATCH REMOVAL TP SCH (20:23)
[2019-01-30 05:02] VITALS: BP 118/67
[2019-01-30] MEDS: BISOPROLOL 5 MG TAB (ZEBETA) PO SCH (09:40)
[2019-01-30] MEDS: prednisoLONE 1% OPTH (PRED FORTE) 5 ML BTL OU SCH ×2 (09:47→20:53)
[2019-01-30] MEDS: ASPIRIN 81 MG CHEW (CHILDREN'S ASA) PO SCH (09:48)
[2019-01-30] MEDS: POLYETHYLENE GLYCOL 17 GM (MIRALAX) PACK PO SCH ×2 (09:48→20:57)
[2019-01-30] MEDS: SERTRALINE 100 MG (ZOLOFT) TAB PO SCH (09:53)
[2019-01-30] MEDS: SODIUM CHLORIDE 1 GM TAB (NON-FORMULARY) PO SCH ×3 (09:53→20:52)
[2019-01-30] MEDS: CLOPIDOGREL 75 MG (PLAVIX) TABLET PO SCH (09:53)
[2019-01-30] MEDS: SENNA W/DOCUSATE (SENOKOT S) TABLET PO SCH ×2 (09:53→20:52)
[2019-01-30] MEDS: LIDOCAINE 4% (SALONPAS) PATCH TOP SCH (09:54)
[2019-01-30] MEDS: DICLOFENAC 1% GEL 100 GM (VOLTAREN) TUBE TOP SCH ×2 (09:54→20:53)
--- NOTE | 2019-01-30 10:45 | NUR ---
Dr. Jalloh notified of pt's BP of 99/46. Hold amlodipine [address] Jalloh is changing to 5 mg/day.
--- NOTE | 2019-01-30 10:51 | Occupational Ther Daily Note ---
OT Current Status-Daily Note Subjective Pt alert and willing to work with OT this date. Pt's family present throughout duration of tx session. Pain Numeric Pain Scale: 0-No Pain Mental Status/Objective Therapy Code Descriptions/Definitions Functional [place] Measure: 0=Not Assessed/NA 4=Minimal Assistance 1=Total Assistance 5=Supervision or Setup 2=Maximal Assistance 6=Modified [place] 3=Moderate Assistance 7=Complete [place] ADL-Treatment Therapy Code Descriptions/Definitions Functional [place] Measure: 0=Not Assessed/NA 4=Minimal Assistance 1=Total Assistance 5=Supervision or Setup 2=Maximal Assistance 6=Modified [place] 3=Moderate Assistance 7=Complete [place] Therapy Quality Codes: 6 Independent with activity with or without an assistive device 5 Patient requires set up or clean up by helper. Patient completes activity by themselves 4 Supervision or touching assist (CGA). [place] provide cues , steadying assist 3 The helper provides less than half the effort to complete the activity 2 The helper provides more than half the effort to complete the activity 1 Dependent. The helper does all the effort to complete an activity 7 Patient refused to complete or attempt activity 9 The patient did not perform the activity before the current illness or injury 88 Not attempted due to Medical conditions or safety concerns Other Treatment Pt participated in AAROM through gross planes of affected RUE. Pt noted to have active movement with shoulder flexion, shoulder extension, elbow flexion/ extension, wrist flexion/extension, digit flexion/extension, and forearm pronation/supination. Pt had difficulty performing scapular movements, and required OT assist to perform elevation, depression, protraction, and retraction. Pt participated in isometric strengthening techniques through shoulder flexion/extension, and elbow flexion/extension, with slight resistance provided during isometric hold. Pt participated in NDT weightbearing techniques through gross joints of RUE. Pt participated in table top exercises with towel placed on bedside table. Pt gripped towel, and was able to perform push/pull, and side motions while seated in chair. Pt and pt's family educated on exercises to do independently, in his room to improve his functional use of RUE following CVA. Pt and pt's family educated on HEP, and provided yellow theraband with education regarding appropriate movements to strengthen RUE. Pt educated on importance of actively using RUE for all self care tasks as well as bearing weight during functional transfers. Education OT Patient Education: Exercise program, Home exercise program, Modified ADL techniques, Rehab process Teaching Recipient: Patient, Family Teaching Methods: Demonstration, Discussion Response to Teaching: Verbalize Understanding, Return Demonstration OT Short Term Goals Short Term Goals Time Frame: Feb 11, 2019 Eating(FIM): 4 Grooming(FIM): 44 Bathing(FIM): 3 Upper Body Dressing(FIM): 3 Lower Body Dressing(FIM): 3 Toileting(FIM): 4 Transfers (B,C,W/C) (FIM): 4 Toilet/Commode Transfer(FIM): 4 Shower Transfer(FIM): 4 Additional Short Term Goals: 1-Demonstrate ADL Tasks, 2-Verbalize Understanding , 3-ImproveStrength/Gifty 1=Demonstrate adherence to instructed precautions during ADL tasks. 2=Patient will verbalize/demonstrate understanding of assistive devices/ modifications for ADL. 3=Patient will improve strength/tolerance for activity to enable patient to perform ADL's. OT Material Crew Supervisor Goals Usp Goals Time Frame: February 25, 2019 Eating (FIM): 6 Eating (QC): 6 Groomin Oral Hygiene (QC): 6 Bathing(FIM): 5 Shower/Bathe Self (QC): 5 Upper Body Dressing(FIM): 5 Upper Body Dressing (QC): 5 Lower Body Dressing(FIM): 5 Lower Body Dressing (QC): 5 On/Off Footwear (QC): 5 Toileting(FIM): 6 Toileting Hygiene (QC): 6 Transfers (B,C,W/C) (FIM): 6 Toilet/Commode Transfer(FIM): 6 Toilet/Commode Transfer (QC): 6 Shower Transfer(FIM): 5 Additional Goals: 1-Demonstrate ADL Tasks, 2-Verbalize Understanding, 3- ImproveStrength/Gifty 1=Demonstrate adherence to instructed precautions during ADL tasks. 2=Patient will verbalize/demonstrate understanding of assistive devices/ modifications for ADL. 3=Patient will improve strength/tolerance for activity to enable patient to perform ADL's. OT Education/Plan Discharge Recommendations Plan/Recommendations: Continue POC Treatment Plan/Plan of Care Patient would benefit from OT for education, treatment and training to promote independence in ADL's, mobility, safety and/or upper extremity function for ADL' s. Plan of Care: ADL Retraining, Functional Mobility, Group Exercise/Act as Ind, UE Funct Exercise/Act Treatment Duration: February 25, 2019 Frequency: At least 5 of 7 days/Wk (IRF) Estimated Hrs Per Day: 1.5 hours per day Agreement: Yes Rehab Potential: Good Time/GCodes Start Time: 10:10 Stop Time: 10:50 Total Time Billed (hr/min): 40 Billed Treatment Time 1, TE2, NM1 MARLYN MICHAEL OT Jan 30, 2019 10:51
--- NOTE | 2019-01-30 11:09 | Physical Therapy Daily Note ---
PT Daily Note-Current Subjective Pt. in bed and agrees to therapy. Mental Status Attachments: Lee Catheter Transfers Therapy Code Descriptions/Definitions Functional [place] Measure: 0=Not Assessed/NA 4=Minimal Assistance 1=Total Assistance 5=Supervision or Setup 2=Maximal Assistance 6=Modified [place] 3=Moderate Assistance 7=Complete [place] Therapy Quality Codes: 6 Independent with activity with or without an assistive device 5 Patient requires set up or clean up by helper. Patient completes activity by themselves 4 Supervision or touching assist (CGA). [place] provide cues , steadying assist 3 The helper provides less than half the effort to complete the activity 2 The helper provides more than half the effort to complete the activity 1 Dependent. The helper does all the effort to complete an activity 7 Patient refused to complete or attempt activity 9 The patient did not perform the activity before the current illness or injury 88 Not attempted due to Medical conditions or safety concerns Transfers (B, C, W/C) (FIM): 4 Supine to/from Sit: 4 Sit to Stand (QC): 4 Gait Training Does the Patient Walk?: Yes Gait (FIM): 2 Distance (FIM): 4=825-24 ft Distance: 2 x 20 ft, x 65 ft Gait Level of Assist: 4 Gait Persons Needed: 1 Gait Assistive Device: Walker Henry cues to keep henry walker at L side, advance R LE first, then L. Pt. needed min assist to occasionally advance R LE. Exercises Seated Therapy Exercises: Biceps, Ankle pumps, Shoulder Flex, Long arc quads, Hip flexion, Hamstring Curls Seated Reps: 15 Treatments gait, exercise Assessment Current Status: Good Progress Pt. initially had walker out in front and dragged the R LE. He did much better with gait following cues to keep henry walker at left side, first advance R LE then L LE. He frequently needed assist to advance R LE but able to weight bear through R leg nicely for walking. Pt. returned to bedside chair post session, call light in reach and all needs met. PT Short Term Goals Short Term Goals Time Frame: Feb 04, 2019 Transfers (B,C,W/C) (FIM): 4 Gait (FIM): 1 Gait Distance Comment: 20' Gait Level of Assist: 3 Gait Assistive Device: Walker Henry Wheelchair Distance: 80' PT Billing Associate Goals Billing Associate Goals PT Senior Living Goals Time Frame: Feb 18, 2019 Transfers (B,C,W/C) (FIM): 4 Sit to Lying (QC): 4 Lying-Sitting on Side/Bed(QC): 4 Sit to Stand (QC): 4 Rollin Roll Left to Right (QC): 4 Chair/[id number] Xfer(QC): 4 Car Transfer (QC): 4 Gait (FIM): 2 Distance: 50' Walk 10 feet (QC): 3 Walk 10ft-Uneven Surface(QC): 3 Walk 50ft with 2 Turns (QC): 3 Gait Level of Assist: 4 Gait Assistive Device: Cane Large Base Quad Wheelchair (FIM): 6 Distance: 150' Wheelchair Level of Assist: 6 Wheel 50 feet with 2 turns (QC: 6 Stairs (FIM): 1 # of Steps: 1 1 Step (curb) (QC): 3 Stairs Level Of Assist: 4 PT Plan Treatment/Plan Treatment Plan: Continue Plan of Care Treatment Plan: Bed Mobility, Concurrent Therapy, Education, Functional Activity Gifty, Functional Strength, Group Therapy, Gait, Safety, Therapeutic Exercise, Transfers Treatment Duration: Feb 18, 2019 Frequency: At least 5 of 7 days/Wk (IRF) Estimated Hrs Per Day: 1.5 hours per day Patient and/or Family Agrees t: Yes Time/GCodes Time In: 815 Time Out: 850 Total Billed Treatment Time: 35 Total Billed Treatment 1, GT 20', Ex 15' ELY ROSE PT Jan 30, 2019 11:09
--- NOTE | 2019-01-30 11:17 | Individualized Plan of Care ---
Individualized Plan of Care Rehab Nursing IPOC Order Admission Date Jan 27, 2019 at 16:40 Current Orders Orders Admission Order(Inpt,Obs,Sdc) (01/27/19 12:22) Vital Signs: Routine (Order) 08,16,00 (01/27/19 12:22) Billy Hose 09,21 (01/27/19 12:22) Sequential Compression Device 08,20 (01/27/19 12:22) Exceptional Needs Teacher-Inpt Rehab Con (01/27/19 12:22) Rehab Nursing Orders-Ipoc (01/27/19 12:22) Physical Therapy Rehab Orders (01/27/19 12:22) Occupational Therapy Rehab Ord (01/27/19 12:22) Speech Therapy Rehab Orders (01/27/19 12:22) Intake & Output 06,14, (01/27/19 12:22) Precautions (Aru) (01/27/19 12:22) Weekly Weight (Lbs) WEEK (01/27/19 12:22) Rehab-Intensity Of Therapy (01/27/19 12:22) Code/Resuscitation (01/27/19 12:22) Initiate Admission Nursing Pro .admission (01/27/19 12:22) Acetaminophen Tablet (Tylenol Tablet) (01/27/19 12:30) Calcium Carbonate Chew Tablet (Antacid C (01/27/19 12:30) Diphenhydramine Tablet (Benadryl Tablet) (01/27/19 12:30) Docusate Sodium Capsule (Colace Capsule) (01/27/19 12:30) Ondansetron Oral Dissolve Tab (Zofran (01/27/19 12:30) Polyethylene Glycol Powder Pkt (Miralax (01/27/19 21:00) Melatonin Tablet (Melatonin Tablet) (01/27/19 12:30) Aspirin Chewable Tablet (Baby Aspirin Ch (01/28/19 09:00) Clopidogrel Tablet (Plavix Tablet) (01/28/19 09:00) Prednisolone 1% Ophthalmic Lyn[place]ay (Pred For (01/27/19 21:00) Sertraline Tablet (Zoloft Tablet) (01/28/19 09:00) Na Chloride Tab (Non-Formulary (Sodium C (01/27/19 21:00) Amlodipine Tablet (Norvasc Tablet) (01/28/19 09:00) Bisoprolol (Zebeta) (01/28/19 09:00) (Nf) Brinzolamide/Brimonidine Tart (Simb (01/27/19 21:00) Diclofenac 1% Gel (Voltaren 1% Gel) (01/27/19 21:00) Lidocaine 4% Patch (Salonpas 4% Patch) (01/28/19 09:00) Senna S Tablet (Senokot S Tablet) (01/27/19 21:00) Cbc With Automated Diff (01/28/19 06:00) Comprehensive Metabolic Panel (01/28/19 06:00) Enoxaparin Injection (Lovenox Injection) (01/27/19 17:00) Iron Tibc %Sat & Ferritin (01/28/19 06:00) Atorvastatin Tablet (Lipitor Tablet) (01/27/19 21:00) Patch Removal (Patch Removal) (01/27/19 21:00) Heparin Injection (Heparin Injection) (01/28/19 06:00) Automatic Tray (01/27/19 19:19) Patient May Use Own Meds, All (Patient M (01/27/19 19:30) Consult Physician (01/28/19 09:24) Patient Visit (01/28/19 ) Speech Sound Lang Comp (01/28/19 ) Patient Visit (01/28/19 ) Pt Eval Moderate Complexity (01/28/19 ) Functional Activities, Ea 15 (01/28/19 ) Tamsulosin Capsule (Flomax Capsule) (01/28/19 18:00) Patient Visit (01/28/19 ) Functional Activities, Ea 15 (01/28/19 ) Diet Order UD (01/29/19 11:50) Dys2 Mechanically Altered (01/29/19 Lunch) Patient Visit (01/29/19 ) Ex Neuromuscular, Ea 15 Min (01/29/19 ) Functional Activities, Ea 15 (01/29/19 ) Gait Training, Ea 15 Min (01/29/19 ) Patient Visit (01/29/19 ) Exercise Therap, Ea 15 Min (01/29/19 ) Patient Visit (01/29/19 ) Treat. Speech/Lang/Voice (01/29/19 ) Dysphagia Evaluation Std (01/29/19 ) Patient Visit (01/30/19 ) Gait Training, Ea 15 Min (01/30/19 ) Exercise Therap, Ea 15 Min (01/30/19 ) Amlodipine Tablet (Norvasc Tablet) (01/31/19 09:00) Rehab Nursing Orders: Ongoing Assess. of Cognitive Status, Ongoing Assess. of Function Status, Bladder Management, Bladder Scan, Bladder Training, Bowel Management, Bowel Training, Disease Management & Educaiton, DVT Prophylaxis, Fall Prevention, Fluid/Electrolyte/Nutrition Mgmt, Management of Risks & Complications, Management of Skin Intergrity, Patient/Family Support, Swallow Precautions Intensity of Therapy to be met Patient to be seen: Min.3h per day/5 of 7d PT IPOC Problem List: Activity Tolerance, Functional Strength, Safety, Balance, Gait, Transfer, Bed Mobility, ROM Treatment Plan: Continue Plan of Care Bed Mobility, Concurrent Therapy, Education, Functional Activity Gifty, Functional Strength, Group Therapy, Gait, Safety, Therapeutic Exercise, Transfers Treatment Duration: Feb 18, 2019 Frequency: At least 5 of 7 days/Wk (IRF) Estimated Hrs Per Day: 1.5 hours per day OT IPOC Problems: Decreased Activ Tolerance, Decreased UE Strength, Impaired Bed Mobility, Impaired Cognition, Impaired Coordination, Impaired Funct Balance, Impaired I ADL's, Impaired Self-Care Skills, Restricted Funct UE ROM OT Treatment, Training and Edu: Yes Plan of Care: ADL Retraining, Functional Mobility, Group Exercise/Act as Ind, UE Funct Exercise/Act Treatment Duration: February 25, 2019 Frequency: At least 5 of 7 days/Wk (IRF) Estimated Hrs Per Day: 1.[address] IPOC Speech Therapy Treatment Plan: Continue Plan of Care Treatment Duration: Feb 05, 2019 Frequency: 5 times per week Estimated Hrs Per Day: .5 hour per day Exceptional Needs Teacher/Case Mgmt Exceptional Needs Teacher/Case Managemen: Discharge Planning Dietitian/Shotgun Shell Reprinting Unit Operator Dietitian/Shotgun Shell Reprinting Unit Operator to monitor nutritional status and make changes and/or recommendations as needed and work with speech pathology on dietary upgrades as the occur. Physician IPOC Medical Issues being managed closely and that require the 24 hour availability of a physician: Recent ischemic stroke high risk for hemorrhagic extension will require close monitoring of blood pressure maintained Lee catheter for urinary retention and prevent falls Medical Issues: Bowel/Bladder Function, DVT Prophylaxis, Falls Precautions, Fluid/Electrolyte/Nutrition Balance, Swallowing Precautions Brief Synthesis of Preadmission Screen, Post-Admission Evaluation, and Therapy Evaluations: Physical therapy will teach how to walk with quad cane in transfer from wheelchair and fall prevention Occupational therapy will focus on toileting and showering and resumption of normal ADL independence Speech therapy work on dysphagia and cognition and communication due to dysphagia and expressive aphasia Medical Prognosis: Good Anticipated Length of Stay: 28 days BOOGIE WHITTEN DO Jan 30, 2019 11:17
--- NOTE | 2019-01-30 11:18 | PM&R Progress Note ---
Subjective HPI/CC On Admission Date Seen by Provider: Jan 30, 2019 Time Seen by Provider: 11:00 CC: Ischemic stroke HPI: This is a 63-year-old white male of Dr. Schultz who presented to via [facility] ER on 01/23/19 with abrupt onset of severe weakness on the right side underwent stroke workup and found to be a candidate for TPA then shipped to [place] and subsequently underwent left carotid endarterectomy on 01/25/19 but still remains with right sided weakness with severe expressive aphasia. Reviewed the entire record at [facility] and reviewed his home medications and patient appears to be ready to start aggressive physical therapy in order regain function. His drove him from and reports that he did well on the trip. His [id number] is a nurse and she helped reviewed the discharge med list. He is currently on. Diet with nectar thickened liquids. CT scan via [facility] and [facility] showed a left ischemic process of the MCA distribution. During hospital course the he had no significant clinical decompensation. Patient requires inpatient rehabilitation with 24 hour physician supervision to monitor her labile blood pressure and monitor for any hemorrhagic residual from ischemic stroke that cannot be provided in any type of lower level of care. 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 Subjective/Events-last exam Making significant progress since arriving Fri and is at the bedside pleased with his progress Communicating better and is able to speak a few words every once in awhile Moving right hand more and right leg Transferring well in wheelchair Participating well with PT/OT and walking with modified cane Compliant with all meds and treatments Speech therapy is working with him to advance diet No pain is reported Valera cath in place for 3 days before attempting to DC per Dr Brantley and maintained on Flomax int he meantime Large BM yesterday Review of Systems Neurological: Weakness, Numbness, Incoordination, Change in speech Objective Exam Vital Signs Vital Signs Date Time Temp Pulse Resp B/P (MAP) Pulse Ox O2 Delivery O2 Flow Rate FiO2 01/30/19 09:00 Room Air 01/30/19 05:02 97.6 69 18 118/67 (84) 97 Capillary Refill : General Appearance: No Apparent Distress, WD/WN, Chronically ill HEENT: PERRL/EOMI, Pharynx Normal, Other (right facial droop) Neck: Full Range of Motion, Normal Inspection, Non Tender, Supple, Other ( incision left neck intact) Respiratory: Chest Non Tender, Lungs Clear, Normal Breath Sounds, No Accessory Muscle Use, No Respiratory Distress Cardiovascular: Regular Rate, Rhythm, No Edema, No Gallop, No JVD, No Murmur, Normal Peripheral Pulses Gastrointestinal: Normal Bowel Sounds, No Organomegaly, No Pulsatile Mass, Non Tender, Soft Back: Normal Inspection, No CVA Tenderness, No Vertebral Tenderness Extremity: Normal Capillary Refill, Normal Inspection, Non Tender, No Calf Tenderness, No Pedal Edema, Other (limited ROM right side and mild deficit left) Neurologic/Psychiatric: Alert, Abnormal adjunct instructor chemistry II-XII, Abnormal Gait, Aphasia ( improved today 01/29/19), Depressed Affect, Facial Droop (right), Motor Weakness ( right) Skin: Normal Color, Warm/Dry, Other (improved left CEA incision site) Lymphatic: No Adenopathy Results/Procedures Lab Patient resulted labs reviewed. Assessment/Plan Assessment and Plan Assess & Plan/Chief Complaint Assessment: (1) Ischemic stroke (2) S/P carotid endarterectomy 01/25/19 with no improvement in right sided weakness (3) PVD (peripheral vascular disease) (4) CAD (coronary artery disease) (5) Expressive aphasia (6) Right sided weakness (7) Anemia (8) Hypertension (9) S/P cataract extraction (10) Dysphagia (11) Hyperlipidemia (12) Constipation-resolved 01/29/19 after meds (13) Klinefelter syndrome (14) Received intravenous tissue plasminogen activator (tPA) in emergency department 01/23/19 at [facility] ER (15) Depression (16) Former smoker (17) Hyponatremia improved on salt tablets (18) DVT prophylaxis (19) Urinary retention-consulted Urology (20) Valera catheter in place Plan: Consult Dr Brantley for Urology is appreciated and may be able to DC valera tomorrow DVT PPx with Heparin Monitor for pain Left cataract eye care with eye drops until completed visiting frequently (1) Ischemic stroke (2) Anemia (3) Expressive aphasia (4) CAD (coronary artery disease) (5) Dysphagia (6) Hyperlipidemia (7) PVD (peripheral vascular disease) (8) Hypertension (9) Right sided weakness (10) Klinefelter syndrome (11) Constipation (12) Depression (13) Hyponatremia (14) DVT prophylaxis (15) Received intravenous tissue plasminogen activator (tPA) in emergency department (16) Urinary retention (17) Valera catheter in place (18) S/P carotid endarterectomy (19) S/P cataract extraction (20) Former smoker Clinical Quality Measures DVT/VTE Risk/Contraindication: Risk Factor Score Per Nursin RFS Level Per Nursing on Admit: 4+=Very High BOOGIE WHITTEN DO Jan 30, 2019 11:18
[2019-01-30] MEDS: TAMSULOSIN 0.4 MG (FLOMAX) CAP PO SCH (17:31)
[2019-01-30 18:31] VITALS: BP 140/75
[2019-01-30] MEDS: ATORVASTATIN 80 MG (LIPITOR) TABLET PO SCH (20:52)
[2019-01-30] MEDS: LIDOCAINE PATCH REMOVAL TP SCH (20:55)
[2019-01-31 05:16] VITALS: BP 107/61
[2019-01-31] MEDS: POLYETHYLENE GLYCOL 17 GM (MIRALAX) PACK PO SCH ×2 (10:31→21:06)
[2019-01-31] MEDS: SENNA W/DOCUSATE (SENOKOT S) TABLET PO SCH ×2 (10:31→21:07)
[2019-01-31] MEDS: BISOPROLOL 5 MG TAB (ZEBETA) PO SCH (10:40)
[2019-01-31] MEDS: SERTRALINE 100 MG (ZOLOFT) TAB PO SCH (10:40)
[2019-01-31] MEDS: CLOPIDOGREL 75 MG (PLAVIX) TABLET PO SCH (10:40)
[2019-01-31] MEDS: ASPIRIN 81 MG CHEW (CHILDREN'S ASA) PO SCH (10:40)
[2019-01-31] MEDS: LIDOCAINE 4% (SALONPAS) PATCH TOP SCH (10:40)
[2019-01-31] MEDS: DICLOFENAC 1% GEL 100 GM (VOLTAREN) TUBE TOP SCH ×2 (10:41→21:06)
[2019-01-31] MEDS: amLODIPine 5 MG (NORVASC) TAB PO SCH (10:41)
[2019-01-31] MEDS: SODIUM CHLORIDE 1 GM TAB (NON-FORMULARY) PO SCH ×3 (10:42→21:06)
[2019-01-31] MEDS: prednisoLONE 1% OPTH (PRED FORTE) 5 ML BTL OU SCH ×2 (10:42→21:06)
--- NOTE | 2019-01-31 11:40 | PM&R Progress Note ---
Subjective HPI/CC On Admission Date Seen by Provider: Jan 31, 2019 Time Seen by Provider: 11:30 CC: Ischemic stroke HPI: This is a 63-year-old white male of Dr. Schultz who presented to via [facility] ER on 01/23/19 with abrupt onset of severe weakness on the right side underwent stroke workup and found to be a candidate for TPA then shipped to [facility] and subsequently underwent left carotid endarterectomy on 01/25/19 but still remains with right sided weakness with severe expressive aphasia. Reviewed the entire record at [facility] and reviewed his home medications and patient appears to be ready to start aggressive physical therapy in order regain function. His drove him from and reports that he did well on the trip. His [id number] is a nurse and she helped reviewed the discharge med list. He is currently on. Diet with nectar thickened liquids. CT scan via [facility] and [facility] showed a left ischemic process of the MCA distribution. During hospital course the he had no significant clinical decompensation. Patient requires inpatient rehabilitation with 24 hour physician supervision to monitor her labile blood pressure and monitor for any hemorrhagic residual from ischemic stroke that cannot be provided in any type of lower level of care. 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 Subjective/Events-last exam Making significant progress since arriving Fri and is at the bedside pleased with his progress and he is very pleased with his ability to talk a little bit Moving right hand more and right leg and that is significant progress Transferring well in wheelchair Taking day off today to rest up for the week with intensive PT/OT and speech Compliant with all meds and treatments Loose stools so will hold BM regimen No pain is reported Valera cath in place per Dr Brantley and maintained on Flomax in the meantime until DC Reviewed all meds and labs Review of Systems Genitourinary: Retention Neurological: Weakness, Numbness, Incoordination, Change in speech Objective Exam Vital Signs Vital Signs Date Time Temp Pulse Resp B/P (MAP) Pulse Ox O2 Delivery O2 Flow Rate FiO2 01/31/19 09:00 Room Air 01/31/19 05:16 96.9 62 20 107/61 (76) 96 Capillary Refill : General Appearance: No Apparent Distress, WD/WN, Chronically ill HEENT: PERRL/EOMI, Pharynx Normal, Other (right facial droop) Neck: Full Range of Motion, Normal Inspection, Non Tender, Supple, Other ( incision left neck intact) Respiratory: Chest Non Tender, Lungs Clear, Normal Breath Sounds, No Accessory Muscle Use, No Respiratory Distress Cardiovascular: Regular Rate, Rhythm, No Edema, No Gallop, No JVD, No Murmur, Normal Peripheral Pulses Gastrointestinal: Normal Bowel Sounds, No Organomegaly, No Pulsatile Mass, Non Tender, Soft Back: Normal Inspection, No CVA Tenderness, No Vertebral Tenderness Extremity: Normal Capillary Refill, Normal Inspection, Non Tender, No Calf Tenderness, No Pedal Edema, Other (limited ROM right side and mild deficit left) Neurologic/Psychiatric: Alert, Abnormal oil expeller II-XII, Abnormal Gait, Aphasia ( improved today 01/29/19), Depressed Affect, Facial Droop (right), Motor Weakness ( right) Skin: Normal Color, Warm/Dry, Other (improved left CEA incision site) Lymphatic: No Adenopathy Results/Procedures Lab Patient resulted labs reviewed. Assessment/Plan Assessment and Plan Assess & Plan/Chief Complaint Assessment: (1) Ischemic stroke (2) S/P carotid endarterectomy 01/25/19 with no improvement in right sided weakness (3) PVD (peripheral vascular disease) (4) CAD (coronary artery disease) (5) Expressive aphasia (6) Right sided weakness (7) Anemia (8) Hypertension (9) S/P cataract extraction (10) Dysphagia (11) Hyperlipidemia (12) Constipation-resolved 01/29/19 after meds (13) Klinefelter syndrome (14) Received intravenous tissue plasminogen activator (tPA) in emergency department 01/23/19 at [facility] ER (15) Depression (16) Former smoker (17) Hyponatremia improved on salt tablets (18) DVT prophylaxis (19) Urinary retention-consulted Urology (20) Valera catheter in place Plan: Consult Dr Brantley for Urology is appreciated and may be able to DC valera Friday DVT PPx with Heparin Monitor for pain Left cataract eye care with eye drops until completed visiting frequently and that is helping morale (1) Ischemic stroke (2) Anemia (3) Expressive aphasia (4) CAD (coronary artery disease) (5) Dysphagia (6) Hyperlipidemia (7) PVD (peripheral vascular disease) (8) Hypertension (9) Right sided weakness (10) Klinefelter syndrome (11) Constipation (12) Depression (13) Hyponatremia (14) DVT prophylaxis (15) Received intravenous tissue plasminogen activator (tPA) in emergency department (16) Urinary retention (17) Valera catheter in place (18) S/P carotid endarterectomy (19) S/P cataract extraction (20) Former smoker Clinical Quality Measures DVT/VTE Risk/Contraindication: Risk Factor Score Per Nursin RFS Level Per Nursing on Admit: 4+=Very High BOOGIE WHITTEN DO Jan 31, 2019 11:40
--- NOTE | 2019-01-31 15:54 | Progress Note-Urology ---
Progress Note-Urology Progress Notes/Assess & Plan Progress/Assessment & Plan TOV TOMORROW Final Diagnosis URINE RETENTION CORNELIO MCCABE MD Jan 31, 2019 15:54
[2019-01-31 17:29] VITALS: BP 132/75
[2019-01-31] MEDS: TAMSULOSIN 0.4 MG (FLOMAX) CAP PO SCH (19:07)
[2019-01-31] MEDS: ATORVASTATIN 80 MG (LIPITOR) TABLET PO SCH (21:06)
[2019-01-31] MEDS: LIDOCAINE PATCH REMOVAL TP SCH (21:07)
[2019-02-01 05:03] VITALS: BP 152/79
--- NOTE | 2019-02-01 07:59 | PM&R Progress Note ---
Subjective HPI/CC On Admission Date Seen by Provider: Feb 01, 2019 Time Seen by Provider: 08:00 CC: Ischemic stroke HPI: This is a 63-year-old white male of Dr. Schultz who presented to via [facility] ER on 01/23/19 with abrupt onset of severe weakness on the right side underwent stroke workup and found to be a candidate for TPA then shipped to [facility] and subsequently underwent left carotid endarterectomy on 01/25/19 but still remains with right sided weakness with severe expressive aphasia. Reviewed the entire record at [facility] and reviewed his home medications and patient appears to be ready to start aggressive physical therapy in order regain function. His drove him from and reports that he did well on the trip. His [id number] is a nurse and she helped reviewed the discharge med list. He is currently on. Diet with nectar thickened liquids. CT scan via [facility] and [facility] showed a left ischemic process of the MCA distribution. During hospital course the he had no significant clinical decompensation. Patient requires inpatient rehabilitation with 24 hour physician supervision to monitor her labile blood pressure and monitor for any hemorrhagic residual from ischemic stroke that cannot be provided in any type of lower level of care. 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 Subjective/Events-last exam Pt talking to me more today. Moving his right arm, right hand and right leg. Discontinued the valera under Dr. Brantley's recommendations. Was holding Norvasc due to low blood pressure but now his blood pressure is 150 so will restart Norvasc at a low dose of 5 mg today. Bowels are moving well, holding bowel regimen because it made his bowels too loose. Overall feeling much better. Participating in all therapies. Appreciate Dr. Brantley's consultation. Review of Systems General: Fatigue Neurological: Weakness, Numbness, Incoordination Objective Exam Vital Signs Vital Signs Date Time Temp Pulse Resp B/P (MAP) Pulse Ox O2 Delivery O2 Flow Rate FiO2 02/01/19 20:23 Room Air 02/01/19 15:49 97.1 60 16 113/64 (80) 97 Capillary Refill : General Appearance: No Apparent Distress, WD/WN, Chronically ill HEENT: PERRL/EOMI, Pharynx Normal, Other (right facial droop) Neck: Full Range of Motion, Normal Inspection, Non Tender, Supple, Other ( incision left neck intact) Respiratory: Chest Non Tender, Lungs Clear, Normal Breath Sounds, No Accessory Muscle Use, No Respiratory Distress Cardiovascular: Regular Rate, Rhythm, No Edema, No Gallop, No JVD, No Murmur, Normal Peripheral Pulses Gastrointestinal: Normal Bowel Sounds, No Organomegaly, No Pulsatile Mass, Non Tender, Soft Back: Normal Inspection, No CVA Tenderness, No Vertebral Tenderness Extremity: Normal Capillary Refill, Normal Inspection, Non Tender, No Calf Tenderness, No Pedal Edema, Other (limited ROM right side and mild deficit left) Neurologic/Psychiatric: Alert, Abnormal coil taper II-XII, Abnormal Gait, Aphasia ( improved today 02/01/19), Depressed Affect, Facial Droop (right), Motor Weakness ( right) Skin: Normal Color, Warm/Dry, Other (improved left CEA incision site) Lymphatic: No Adenopathy Results/Procedures Lab Patient resulted labs reviewed. Assessment/Plan Assessment and Plan Assess & Plan/Chief Complaint Assessment: (1) Ischemic stroke (2) S/P carotid endarterectomy 01/25/19 with no improvement in right sided weakness (3) PVD (peripheral vascular disease) (4) CAD (coronary artery disease) (5) Expressive aphasia (6) Right sided weakness (7) Anemia (8) Hypertension (9) S/P cataract extraction (10) Dysphagia (11) Hyperlipidemia (12) Constipation-resolved 01/29/19 after meds (13) Klinefelter syndrome (14) Received intravenous tissue plasminogen activator (tPA) in emergency department 01/23/19 at [facility] ER (15) Depression (16) Former smoker (17) Hyponatremia improved on salt tablets (18) DVT prophylaxis (19) Urinary retention-consulted Urology, appreciate recs (20) Valera catheter in place now DC today to evaluate for spontaneous voiding Plan: Consult Dr Brantley for Urology is appreciated and DC valera today 02/01/19 DVT PPx with Heparin Monitor for pain Left cataract eye care with eye drops until completed visiting frequently and that is helping morale Improving with intensive therapies Reviewed PT/OT speech notes (1) Ischemic stroke (2) Anemia (3) Expressive aphasia (4) CAD (coronary artery disease) (5) Dysphagia (6) Hyperlipidemia (7) PVD (peripheral vascular disease) (8) Hypertension (9) Right sided weakness (10) Klinefelter syndrome (11) Constipation (12) Depression (13) Hyponatremia (14) DVT prophylaxis (15) Received intravenous tissue plasminogen activator (tPA) in emergency department (16) Urinary retention (17) Valera catheter in place (18) S/P carotid endarterectomy (19) S/P cataract extraction (20) Former smoker Clinical Quality Measures DVT/VTE Risk/Contraindication: Risk Factor Score Per Nursin RFS Level Per Nursing on Admit: 4+=Very High BOOGIE WHITTEN DO Feb 01, 2019 07:59
[2019-02-01] MEDS: LIDOCAINE 4% (SALONPAS) PATCH TOP SCH (08:19)
[2019-02-01] MEDS: ASPIRIN 81 MG CHEW (CHILDREN'S ASA) PO SCH (08:19)
[2019-02-01] MEDS: DICLOFENAC 1% GEL 100 GM (VOLTAREN) TUBE TOP SCH ×2 (08:19→20:49)
[2019-02-01] MEDS: prednisoLONE 1% OPTH (PRED FORTE) 5 ML BTL OU SCH ×2 (08:19→20:54)
[2019-02-01] MEDS: CLOPIDOGREL 75 MG (PLAVIX) TABLET PO SCH (08:19)
[2019-02-01] MEDS: SERTRALINE 100 MG (ZOLOFT) TAB PO SCH (08:19)
[2019-02-01] MEDS: amLODIPine 5 MG (NORVASC) TAB PO SCH (08:19)
[2019-02-01] MEDS: BISOPROLOL 5 MG TAB (ZEBETA) PO SCH (08:19)
[2019-02-01] MEDS: POLYETHYLENE GLYCOL 17 GM (MIRALAX) PACK PO SCH ×2 (08:55→20:54)
[2019-02-01] MEDS: SODIUM CHLORIDE 1 GM TAB (NON-FORMULARY) PO SCH ×3 (08:56→20:48)
[2019-02-01] MEDS: SENNA W/DOCUSATE (SENOKOT S) TABLET PO SCH ×2 (08:56→20:53)
--- NOTE | 2019-02-01 09:19 | NUR ---
[employer] Service Captain follow up: Pt waved me in, smiling. Pt took my hand. He indicated he welcomed prayer when I offered. Offered prayer for patience, mercy, and jewish.
--- NOTE | 2019-02-01 10:29 | Speech Therapy Daily Note ---
Speech Daily Progress Note Subjective Date Seen by Provider: Feb 01, 2019 Time Seen by Provider: 00:30 The patient was sitting up in his bed, alert and watching tv when I entered his room. Objective The patient completed confrontational naming tasks with 75% accuracy with 20% repetitions. Assessment Assessment Current Status: Good Progress Treatment Plan Continue Plan of Care Communication Comprehension: 5 Expression: 1 Social Cognition Social Interaction: 5 Problem Solvin Memory: 5 Speech Short Term Goals Short Term Goals Short Term Goals 1) The patient will demonstrate orientation to person, place time and situation with 75% accuracy provided with stimulation and choices. 2) The patient will demonstrate correct naming of ten functional simple items during therapy session. 3) The patient will vollow one-step verbal commands with mod verbal/visual cues with 80% accuracy. 4) The patient will tolerate least restrictive diet level without signs/ symptoms of aspiration. 5) The patient will utilize compensatory strategies as trained for safe oral intake at 90% given minimal cues. Speech Longterm Goals Longterm Goals 1) Patient will communicate basic wants and needs with 2-3 word phrases during therapy sessions. 2) Patient will maintain adequate nutrition/hydration via safe effective swallow function. Speech-Plan Patient/Family Goals Patient/Family Goals: The patient plans to return home post rehab, where he lives with his . Treatment Plan Speech Therapy Treatment Plan: Continue Plan of Care The patient's spontaneous speech has significantly improved. Treatment Duration: Feb 12, 2019 Frequency: 5 times per week Estimated Hrs Per Day: .5 hour per day Rehab Potential: Good Barriers to Learning: New onset CVA, expressive aphasia Pt/Family Agrees to Plan: Yes Safety Risks/Education Teaching Recipient: Patient Teaching Methods: Discussion Response to Teaching: Verbalize Understanding Education Topics Provided: Safety within his room, utilization of the communication board. Time Speech Therapy Time In: 09:00 Speech Therapy Time Out: 09:30 Total Billed Time: 30 Billed Treatment Time [address] Feb 01, 2019 10:29
--- NOTE | 2019-02-01 11:05 | Physical Therapy Daily Note ---
PT Daily Note-Current Subjective Patient in bed pre tx, agrees to PT, doesn't seem to have pain at rest. Will be co-treating with OT this morning due to poor activity tolerance, standing and sitting balance, poor general mobility. Patient needs a shower. Appearance Patient in recliner post tx with nurse call, phone, tray, all needs met. Mental Status Patient Orientation: Person, Unable to Assess, Non-Verbal/Aphasic Transfers Therapy Code Descriptions/Definitions Functional [place] Measure: 0=Not Assessed/NA 4=Minimal Assistance 1=Total Assistance 5=Supervision or Setup 2=Maximal Assistance 6=Modified [place] 3=Moderate Assistance 7=Complete Pettis Therapy Quality Codes: 6 Independent with activity with or without an assistive device 5 Patient requires set up or clean up by helper. Patient completes activity by themselves 4 Supervision or touching assist (CGA). [place] provide cues , steadying assist 3 The helper provides less than half the effort to complete the activity 2 The helper provides more than half the effort to complete the activity 1 Dependent. The helper does all the effort to complete an activity 7 Patient refused to complete or attempt activity 9 The patient did not perform the activity before the current illness or injury 88 Not attempted due to Medical conditions or safety concerns Transfers (B, C, W/C) (FIM): 4 Scootin Rollin Supine to/from Sit: 4 Sit to/from Stand: 4 Bed to/from Chair: 4 min assist for bed mobility and transfers, leans to the right side during transfers, needs cues for hand placement and safety Gait Training Gait (FIM): 2 Distance: 50'x3 Gait Level of Assist: 4 Gait Persons Needed: 1 Gait Assistive Device: FWW Wheelchair follow, patient needs assist guiding walker and keeping right hand on walker, poor step-through on right side. Poor foot clearance on right side. Neuromuscular standing balance activities in parallel bars reaching for cones, turning trunk, other reaching activities, weight shifting, marching Treatments bed mobility and transfers, ambulation, balance training, patient was bathed and dressed. PT worked on bed mobility and transfers, ambulation, balance training, assist with balance during dressing and bathing. OT worked on bathing , dressing, balance activities, assist with transfers and ambulation. Assessment Current Status: Fair Progress Improved transfers and ambulation. This will probably be the last co-treatment with OT and PT. PT Short Term Goals Short Term Goals Time Frame: Feb 04, 2019 Transfers (B,C,W/C) (FIM): 4 Gait (FIM): 1 Gait Distance Comment: 20' Gait Level of Assist: 3 Gait Assistive Device: Walker Henry Wheelchair Distance: 80' PT [place] Goals Mcc Goals PT [place] Goals Time Frame: Feb 18, 2019 Transfers (B,C,W/C) (FIM): 4 Sit to Lying (QC): 4 Lying-Sitting on Side/Bed(QC): 4 Sit to Stand (QC): 4 Rollin Roll Left to Right (QC): 4 Chair/Kvi-zq-Sccsn Xfer(QC): 4 Car Transfer (QC): 4 Gait (FIM): 2 Distance: 50' Walk 10 feet (QC): 3 Walk 10ft-Uneven Surface(QC): 3 Walk 50ft with 2 Turns (QC): 3 Gait Level of Assist: 4 Gait Assistive Device: Cane Large Base Quad Wheelchair (FIM): 6 Distance: 150' Wheelchair Level of Assist: 6 Wheel 50 feet with 2 turns (QC: 6 Stairs (FIM): 1 # of Steps: 1 1 Step (curb) (QC): 3 Stairs Level Of Assist: 4 PT Plan Problem List Problem List: Activity Tolerance, Functional Strength, Safety, Balance, Gait, Transfer, Bed Mobility, ROM Treatment/Plan Treatment Plan: Continue Plan of Care Treatment Plan: Bed Mobility, Concurrent Therapy, Education, Functional Activity Gifty, Functional Strength, Group Therapy, Gait, Safety, Therapeutic Exercise, Transfers Treatment Duration: Feb 18, 2019 Frequency: At least 5 of 7 days/Wk (IRF) Estimated Hrs Per Day: 1.5 hours per day Patient and/or Family Agrees t: Yes Safety Risks/Education Patient Education: Gait Training, Transfer Techniques, Correct Positioning, Safety Issues Teaching Recipient: Patient Teaching Methods: Demonstration, Discussion Response to Teaching: Reinforcement Needed Time/GCodes Time In: 1000 Time Out: 1100 Total Billed Treatment Time: 60 Total Billed Treatment 1 visit FA 30' GT 15' NM 15' co-treated for the whole 60' JAXON BRAUN PT Feb 01, 2019 11:05
--- NOTE | 2019-02-01 13:43 | Occupational Ther Daily Note ---
OT Current Status-Daily Note Subjective No pain reported. Appearance Pt in bed. Smiles at this therapist when she enters. OT asks pt.how he is and he states, "good." Pt. seems to have "more words" this date. Mental Status/Objective Patient Orientation: Person Therapy Code Descriptions/Definitions Functional [place] Measure: 0=Not Assessed/NA 4=Minimal Assistance 1=Total Assistance 5=Supervision or Setup 2=Maximal Assistance 6=Modified [place] 3=Moderate Assistance 7=Complete [place] ADL-Treatment Therapy Code Descriptions/Definitions Functional [place] Measure: 0=Not Assessed/NA 4=Minimal Assistance 1=Total Assistance 5=Supervision or Setup 2=Maximal Assistance 6=Modified [place] 3=Moderate Assistance 7=Complete [place] Therapy Quality Codes: 6 Independent with activity with or without an assistive device 5 Patient requires set up or clean up by helper. Patient completes activity by themselves 4 Supervision or touching assist (CGA). [place] provide cues , steadying assist 3 The helper provides less than half the effort to complete the activity 2 The helper provides more than half the effort to complete the activity 1 Dependent. The helper does all the effort to complete an activity 7 Patient refused to complete or attempt activity 9 The patient did not perform the activity before the current illness or injury 88 Not attempted due to Medical conditions or safety concerns Bathing (FIM): 3 (Pt is able to wash upper body, justina area, and most of LE. OT assists with feet. OT also assists with drying self. ) Shower/Bathe Self (QC): 3 Upper Body (FIM): 2 Upper Body Dressing (QC): 2 Lower Body Dressing (FIM): 2 Lower Body Dressing (QC): 2 On/Off Footwear (QC): 1 Transfers (B, C, W/C) (FIM): 3 Shower Transfer(FIM): 1 (Shower chair.) Other Treatment After shower, pt. attempts to assist with dressing tasks. Pt. has difficulty with this. OT dons pants over feet. Mod assist to stand and then pt. attempts to don over hip. OT does this for him fully. Pt. attempts to don socks but is unable to bring foot up to him and keep it there. OT does this for him. No street clothing available so this OT will let family know to bring clothing. After dressing, pt. did practice ambulation with walker. OT/PT co-treated due to pt's fatigue level, and need for skilled treatment. Please see PT note for ambulation distance. Went to therapy gym. Pt. stood in parallel bars. PT focused on balance and upright posture while OT addressed right UE. Worked on weight shifts and reaching, and grasping cones in right hand. Pt. demonstrates increased grasp and reach on right UE. Tolerated this well. Worked on trunk flexion/rotation. After treatment, pt. ambulated back to room. Transferred to chair and all needs met. Education OT Patient Education: Correct positioning, Modified ADL techniques, Progress toward Goal/Update tx plan, Purpose of tx/functional activities, Reviewed precautions, Rehab process, Transfer techniques Teaching Recipient: Patient Teaching Methods: Demonstration, Discussion Response to Teaching: Verbalize Understanding, Return Demonstration OT Short Term Goals Short Term Goals Time Frame: Feb 11, 2019 Eating(FIM): 4 Grooming(FIM): 44 Bathing(FIM): 3 Upper Body Dressing(FIM): 3 Lower Body Dressing(FIM): 3 Toileting(FIM): 4 Transfers (B,C,W/C) (FIM): 4 Toilet/Commode Transfer(FIM): 4 Shower Transfer(FIM): 4 Additional Short Term Goals: 1-Demonstrate ADL Tasks, 2-Verbalize Understanding , 3-ImproveStrength/Gifty 1=Demonstrate adherence to instructed precautions during ADL tasks. 2=Patient will verbalize/demonstrate understanding of assistive devices/ modifications for ADL. 3=Patient will improve strength/tolerance for activity to enable patient to perform ADL's. OT Machine Cell Tuber Goals Machine Cell Tuber Goals Time Frame: February 25, 2019 Eating (FIM): 6 Eating (QC): 6 Groomin Oral Hygiene (QC): 6 Bathing(FIM): 5 Shower/Bathe Self (QC): 5 Upper Body Dressing(FIM): 5 Upper Body Dressing (QC): 5 Lower Body Dressing(FIM): 5 Lower Body Dressing (QC): 5 On/Off Footwear (QC): 5 Toileting(FIM): 6 Toileting Hygiene (QC): 6 Transfers (B,C,W/C) (FIM): 6 Toilet/Commode Transfer(FIM): 6 Toilet/Commode Transfer (QC): 6 Shower Transfer(FIM): 5 Additional Goals: 1-Demonstrate ADL Tasks, 2-Verbalize Understanding, 3- ImproveStrength/Gifty 1=Demonstrate adherence to instructed precautions during ADL tasks. 2=Patient will verbalize/demonstrate understanding of assistive devices/ modifications for ADL. 3=Patient will improve strength/tolerance for activity to enable patient to perform ADL's. OT Education/Plan Problem List/Assessment Assessment: Decreased Activ Tolerance, Decreased UE Strength, Dependent Transfers, Impaired Bed Mobility, Impaired Coordination, Impaired Funct Balance , Impaired I ADL's, Impaired Self-Care Skills, Restricted Funct UE ROM Discharge Recommendations Plan/Recommendations: Continue POC Therapy D/C Recommendations: Home w/ Family Support, Occupational Therapy Home Care, Scheduled Assistance Treatment Plan/Plan of Care Treatment,Training & Education: Yes Patient would benefit from OT for education, treatment and training to promote independence in ADL's, mobility, safety and/or upper extremity function for ADL' s. Plan of Care: ADL Retraining, Functional Mobility, Group Exercise/Act as Ind, UE Funct Exercise/Act Treatment Duration: February 25, 2019 Frequency: At least 5 of 7 days/Wk (IRF) Estimated Hrs Per Day: 1.5 hours per day Agreement: Yes Rehab Potential: Good Time/GCodes Start Time: 10:00 Stop Time: 11:00 Total Time Billed (hr/min): 60 Billed Treatment Time 1, ADL x 30minutes, FA x 30minutes PAULETTE HALL OT Feb 01, 2019 13:43
--- NOTE | 2019-02-01 14:44 | Therapy Group Daily Note ---
Therapy Daily Group Note Patient Education Topic Other List Below (memory strategies) Exercises LE Seated Exercise, UE Exercise Session Ratio (pt:therapist): 4:1 Goal of Session: Memory Strategies to understand the importance of memory for health and well being Goal Met for this Session: Yes Pt Benefit of Group: Contributions to Others, Increased Functional Safety, Increased Functional Strength, Recognition of Peers, Socialization Other/Notes Pt. participated in group PT session this date. Pt. came and went ambulating with FWW min assist . Pts. introduced themselves and shared a memory ( the name of their 1sr sample grader) Pts. lead exercise session by reading and illustrating/leading U &L extremity exercises. This pt. was happy to share and demonstrated all exercises well but struggled with expression. Pts. also shared memory strategies and played memory activity image matching game which pt. seemed to enjoy much. Pt. to room after group with luna at hand and all needs met Start Time: 13:00 Stop Time: 14:00 Total Billed Treatment Time: 60 Total Billed Treatment 1,GRP ALETHEA SANTOS SLEEVE PRESSER OPERATOR Feb 01, 2019 14:44
[2019-02-01 15:49] VITALS: BP 113/64
--- NOTE | 2019-02-01 17:12 | NUR ---
ELECTRONIC SCALE TESTER contacted patient's [employer] insurance policy to inquire about primary provider. [facility] states they are the patient's primary insurance and authorization for ARU should have been requested from them prior to admission. ELECTRONIC SCALE TESTER explained scenario and completed a retroactive request for authorization. Passenger Interline Clerk states this could take up to 3 business days to process.
[2019-02-01] MEDS: TAMSULOSIN 0.4 MG (FLOMAX) CAP PO SCH (17:20)
[2019-02-01] MEDS: ATORVASTATIN 80 MG (LIPITOR) TABLET PO SCH (20:48)
[2019-02-01] MEDS: LIDOCAINE PATCH REMOVAL TP SCH (20:50)
[2019-02-02 05:04] VITALS: BP 116/65
--- NOTE | 2019-02-02 08:00 | NUR ---
FEELS PATIENT IS MAKING "GREAT PROGRESS" WITH MOVING RIGHT SIDE MORE AND SAYING MORE WORDS. STATES WAS ABLE TO CARRY ON A CONVERSATION ON PHONE WITH BROTHER LAST NIGHT. DENIES PAIN. DENIES DIFFICULTY IN SWALLOWING.
--- NOTE | 2019-02-02 08:08 | PM&R Progress Note ---
Subjective HPI/CC On Admission Date Seen by Provider: Feb 02, 2019 Time Seen by Provider: 08:00 CC: Ischemic stroke HPI: This is a 63-year-old white male of Dr. Schultz who presented to via [facility] ER on 01/23/19 with abrupt onset of severe weakness on the right side underwent stroke workup and found to be a candidate for TPA then shipped to [facility] and subsequently underwent left carotid endarterectomy on 01/25/19 but still remains with right sided weakness with severe expressive aphasia. Reviewed the entire record at [facility] and reviewed his home medications and patient appears to be ready to start aggressive physical therapy in order regain function. His drove him from and reports that he did well on the trip. His [id number] is a nurse and she helped reviewed the discharge med list. He is currently on. Diet with nectar thickened liquids. CT scan via [facility] and [facility] showed a left ischemic process of the MCA distribution. During hospital course the he had no significant clinical decompensation. Patient requires inpatient rehabilitation with 24 hour physician supervision to monitor her labile blood pressure and monitor for any hemorrhagic residual from ischemic stroke that cannot be provided in any type of lower level of care. 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 Subjective/Events-last exam Still impulsive, has a bed alarm on Short term disability forms need to be filled out Having difficulty voiding and Dr. Brantley was notified and required straight caths to void Was talking on the phone with his brother so much is improved expressive aphasia Working hard in therapy for ambulation and fall risk prevention Told patient to not get frustrated with urinary issues Noted low iron so will initiate po iron every 48 hours Review of Systems General: Fatigue Genitourinary: Retention Neurological: Weakness, Numbness, Incoordination Objective Exam Vital Signs Vital Signs Date Time Temp Pulse Resp B/P (MAP) Pulse Ox O2 Delivery O2 Flow Rate FiO2 02/02/19 17:06 Room Air 02/02/19 15:30 98.1 63 16 132/72 (92) 98 Capillary Refill : General Appearance: No Apparent Distress, WD/WN, Chronically ill HEENT: PERRL/EOMI, Pharynx Normal, Other (right facial droop) Neck: Full Range of Motion, Normal Inspection, Non Tender, Supple, Other ( incision left neck intact) Respiratory: Chest Non Tender, Lungs Clear, Normal Breath Sounds, No Accessory Muscle Use, No Respiratory Distress Cardiovascular: Regular Rate, Rhythm, No Edema, No Gallop, No JVD, No Murmur, Normal Peripheral Pulses Gastrointestinal: Normal Bowel Sounds, No Organomegaly, No Pulsatile Mass, Non Tender, Soft Back: Normal Inspection, No CVA Tenderness, No Vertebral Tenderness Extremity: Normal Capillary Refill, Normal Inspection, Non Tender, No Calf Tenderness, No Pedal Edema, Other (limited ROM right side and mild deficit left) Neurologic/Psychiatric: Alert, Abnormal 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 Assessment/Plan Assessment and Plan Assess & Plan/Chief Complaint Assessment: (1) Ischemic stroke (2) S/P carotid endarterectomy 01/25/19 with no improvement in right sided weakness (3) PVD (peripheral vascular disease) (4) CAD (coronary artery disease) (5) Expressive aphasia- improved 02/02/19 (6) Right sided weakness (7) Anemia-iron def so starting iron 02/03/19 (8) Hypertension (9) S/P cataract extraction (10) Dysphagia (11) Hyperlipidemia (12) Constipation-resolved 01/29/19 after meds (13) Klinefelter syndrome (14) Received intravenous tissue plasminogen activator (tPA) in emergency department 01/23/19 at [facility] ER (15) Depression (16) Former smoker (17) Hyponatremia improved on salt tablets (18) DVT prophylaxis (19) Urinary retention-consulted Urology, appreciate recs (20) Lee catheter was in place now DC today but back with urinary retention Plan: Consult Dr Brantley for Urology is appreciated and urinary retention is being managed DVT PPx with Heparin but then DC due to oozing so changed to Lovenox once daily Monitor for pain Left cataract eye care with eye drops until completed visiting frequently and that is helping morale Improving with intensive therapies Reviewed PT/OT speech notes Add Iron therapy every other day to prevent constipation Check labs in am and may be able to DC salt tablets (1) Ischemic stroke (2) Anemia Assessment & Plan: Start iron therapy (3) Expressive aphasia (4) CAD (coronary artery disease) (5) Dysphagia (6) Hyperlipidemia (7) PVD (peripheral vascular disease) (8) Hypertension (9) Right sided weakness (10) Klinefelter syndrome (11) Constipation (12) Depression (13) Hyponatremia (14) DVT prophylaxis (15) Received intravenous tissue plasminogen activator (tPA) in emergency department (16) Urinary retention (17) Lee catheter in place (18) S/P carotid endarterectomy (19) S/P cataract extraction (20) Former smoker Clinical Quality Measures DVT/VTE Risk/Contraindication: Risk Factor Score Per Nursin RFS Level Per Nursing on Admit: 4+=Very High BOOGIE WHITTEN DO Feb 02, 2019 08:07
[2019-02-02] MEDS: ASPIRIN 81 MG CHEW (CHILDREN'S ASA) PO SCH (08:39)
[2019-02-02] MEDS: CLOPIDOGREL 75 MG (PLAVIX) TABLET PO SCH (08:40)
[2019-02-02] MEDS: POLYETHYLENE GLYCOL 17 GM (MIRALAX) PACK PO SCH ×2 (08:40→19:25)
[2019-02-02] MEDS: BISOPROLOL 5 MG TAB (ZEBETA) PO SCH (08:40)
[2019-02-02] MEDS: amLODIPine 5 MG (NORVASC) TAB PO SCH (08:40)
[2019-02-02] MEDS: SERTRALINE 100 MG (ZOLOFT) TAB PO SCH (08:40)
[2019-02-02] MEDS: SENNA W/DOCUSATE (SENOKOT S) TABLET PO SCH ×2 (08:41→20:46)
[2019-02-02] MEDS: SODIUM CHLORIDE 1 GM TAB (NON-FORMULARY) PO SCH ×3 (08:41→20:46)
[2019-02-02] MEDS: prednisoLONE 1% OPTH (PRED FORTE) 5 ML BTL OU SCH ×2 (08:45→20:47)
[2019-02-02] MEDS: LIDOCAINE 4% (SALONPAS) PATCH TOP SCH (08:45)
[2019-02-02] MEDS: DICLOFENAC 1% GEL 100 GM (VOLTAREN) TUBE TOP SCH ×2 (08:46→20:47)
--- NOTE | 2019-02-02 10:00 | NUR ---
DR. MCCABE NOTIFIED THAT PATIENT DOES NOT FEEL THE URGE TO VOID AND BLADDER SCAN CONSISTENTLY SHOWS OVER 400 CC. BLADDER SCAN CURRENTLY SHOW 393 CC AND PATIENT UNABLE TO VOID.
--- NOTE | 2019-02-02 10:04 | Speech Therapy Daily Note ---
Speech Daily Progress Note Subjective Date Seen by Provider: Feb 02, 2019 Time Seen by Provider: 00:30 The patient greeted me with "good morning" when I entered the room. Objective Patient was able to engage in simple conversation with spontaneous words/ phrases at 70% given min to mod verbal cues. Assessment Assessment Current Status: Good Progress Treatment Plan Continue Plan of Care Communication Comprehension: 5 Expression: 1 Social Cognition Social Interaction: 5 Problem Solvin Memory: 5 Speech Short Term Goals Short Term Goals Short Term Goals 1) The patient will demonstrate orientation to person, place time and situation with 75% accuracy provided with stimulation and choices. 2) The patient will demonstrate correct naming of ten functional simple items during therapy session. 3) The patient will vollow one-step verbal commands with mod verbal/visual cues with 80% accuracy. 4) The patient will tolerate least restrictive diet level without signs/ symptoms of aspiration. 5) The patient will utilize compensatory strategies as trained for safe oral intake at 90% given minimal cues. Speech Longterm Goals Stator Winder Goals 1) Patient will communicate basic wants and needs with 2-3 word phrases during therapy sessions. 2) Patient will maintain adequate nutrition/hydration via safe effective swallow function. Speech-Plan Patient/Family Goals Patient/Family Goals: The patient plans to return home with his post rehab. Treatment Plan Speech Therapy Treatment Plan: Continue Plan of Care Patient is progressing as a result of skilled ST services. Treatment Duration: Feb 12, 2019 Frequency: 5 times per week Estimated Hrs Per Day: .5 hour per day Rehab Potential: Good Barriers to Learning: New onset CVA, Expressive Aphasia Pt/Family Agrees to Plan: Yes Safety Risks/Education Teaching Recipient: Patient Teaching Methods: Discussion Response to Teaching: Verbalize Understanding Education Topics Provided: Utilization of communication aids provided. Time Speech Therapy Time In: 09:00 Speech Therapy Time Out: 09:30 Total Billed Time: 30 Billed Treatment Time 1, EMILY Rivero Feb 02, 2019 10:04
--- NOTE | 2019-02-02 10:13 | Progress Note-Urology ---
Progress Note-Urology Progress Notes/Assess & Plan Progress/Assessment & Plan UNABLE TO VOID. NOT MUCH SENSATION. PVR 400CC. PLAN LUJAN AND ADD URECHOLINE. CYSTO TOMORROW Final Diagnosis URINE RETENTION CORNELIO MCCABE MD Feb 02, 2019 10:13
--- NOTE | 2019-02-02 11:14 | Physical Therapy Daily Note ---
PT Daily Note-Current Subjective Patient in chair in room pre tx, agrees to PT, doesn't indicate that he has any pain. Appearance Patient in recliner post tx with nurse call, phone, tray, all needs met. Has OT right after PT. Mental Status Patient Orientation: Person, Unable to Assess, Non-Verbal/Aphasic Transfers Therapy Code Descriptions/Definitions Functional [place] Measure: 0=Not Assessed/NA 4=Minimal Assistance 1=Total Assistance 5=Supervision or Setup 2=Maximal Assistance 6=Modified [place] 3=Moderate Assistance 7=Complete [place] Therapy Quality Codes: 6 Independent with activity with or without an assistive device 5 Patient requires set up or clean up by helper. Patient completes activity by themselves 4 Supervision or touching assist (CGA). [place] provide cues , steadying assist 3 The helper provides less than half the effort to complete the activity 2 The helper provides more than half the effort to complete the activity 1 Dependent. The helper does all the effort to complete an activity 7 Patient refused to complete or attempt activity 9 The patient did not perform the activity before the current illness or injury 88 Not attempted due to Medical conditions or safety concerns Transfers (B, C, W/C) (FIM): 4 Sit to/from Stand: 5 Bed to/from Chair: 4 CGA for transfers today, no LOB but is unsteady with turning Gait Training Gait (FIM): 4 Distance: 100', 150' Gait Persons Needed: 1 Gait Assistive Device: FWW Mostly SBA but needs CGA when turning. Patient ambulates slowly and mostly slides right foot across the floor, virtually no foot clearance. He would benefit from shoes and an AFO. Exercises Standing: Hip Abduction, Heel/toe raises, Marching, Mini squats Standing Reps: 15 LAQ right side for 5 min with 2# ankle weight, toe touches on step x15 each side. NuStep Minutes: 15 NuStep Workload: 5 Treatments transfers, ambulation, functional strengthening Assessment Current Status: Fair Progress improved ambulation, still has poor foot clearance on the right side PT Short Term Goals Short Term Goals Time Frame: Feb 04, 2019 Transfers (B,C,W/C) (FIM): 4 Gait (FIM): 1 Gait Distance Comment: 20' Gait Level of Assist: 3 Gait Assistive Device: Walker Henry Wheelchair Distance: 80' PT Airplane Charter Clerk Goals Snf Goals PT Airplane Charter Clerk Goals Time Frame: Feb 18, 2019 Transfers (B,C,W/C) (FIM): 4 Sit to Lying (QC): 4 Lying-Sitting on Side/Bed(QC): 4 Sit to Stand (QC): 4 Rollin Roll Left to Right (QC): 4 Chair/Inz-ts-Oyjce Xfer(QC): 4 Car Transfer (QC): 4 Gait (FIM): 2 Distance: 50' Walk 10 feet (QC): 3 Walk 10ft-Uneven Surface(QC): 3 Walk 50ft with 2 Turns (QC): 3 Gait Level of Assist: 4 Gait Assistive Device: Cane Large Base Quad Wheelchair (FIM): 6 Distance: 150' Wheelchair Level of Assist: 6 Wheel 50 feet with 2 turns (QC: 6 Stairs (FIM): 1 # of Steps: 1 1 Step (curb) (QC): 3 Stairs Level Of Assist: 4 PT Plan Problem List Problem List: Activity Tolerance, Functional Strength, Safety, Balance, Gait, Transfer, Bed Mobility, ROM Treatment/Plan Treatment Plan: Continue Plan of Care Treatment Plan: Bed Mobility, Concurrent Therapy, Education, Functional Activity Gifty, Functional Strength, Group Therapy, Gait, Safety, Therapeutic Exercise, Transfers Treatment Duration: Feb 18, 2019 Frequency: At least 5 of 7 days/Wk (IRF) Estimated Hrs Per Day: 1.5 hours per day Patient and/or Family Agrees t: Yes Safety Risks/Education Patient Education: Gait Training, Transfer Techniques, Correct Positioning, Safety Issues Teaching Recipient: Patient Teaching Methods: Demonstration, Discussion Response to Teaching: Reinforcement Needed Time/GCodes Time In: 1015 Time Out: 1105 Total Billed Treatment Time: 50 Total Billed Treatment 1 visit EX 30' GT 20' JAXON BRAUN PT Feb 02, 2019 11:14
--- NOTE | 2019-02-02 11:30 | NUR ---
#16 FR. LUJAN CATHETER INSERTED WITHOUT DIFFICULTY. CLEAR LIGHT DANNY URINE RETURN. STARTED ON URECHOLINE. PATIENT INFORMED OF CYSTO IN AM. CONSENT SIGNED AND MRSA SWAB DONE.
[2019-02-02] MEDS: BETHANECHOL 25 MG (URECHOLINE) TAB PO SCH ×3 (11:52→20:46)
--- NOTE | 2019-02-02 13:00 | NUR ---
HEPARIN INJECTION SITE ON RIGHT SIDE OF ABDOMEN WILL NOT STOP OOZING. SHORTS HAVE BEEN SOILIED. CLEANED AND NEW BANDAIDS APPLIED SEVERAL TIMES. DR. WHITTEN INFORMED AND WILL CHANGE TO NILO.
--- NOTE | 2019-02-02 13:28 | Physical Therapy Daily Note ---
PT Daily Note-Current Subjective Pt. was in bed upon arrival. Pt. agreed to therapy treatment. Pt. had no complaints of pain. Transfers Therapy Code Descriptions/Definitions Functional [employer] Measure: 0=Not Assessed/NA 4=Minimal Assistance 1=Total Assistance 5=Supervision or Setup 2=Maximal Assistance 6=Modified [employer] 3=Moderate Assistance 7=Complete [employer] Therapy Quality Codes: 6 Independent with activity with or without an assistive device 5 Patient requires set up or clean up by helper. Patient completes activity by themselves 4 Supervision or touching assist (CGA). [place] provide cues , steadying assist 3 The helper provides less than half the effort to complete the activity 2 The helper provides more than half the effort to complete the activity 1 Dependent. The helper does all the effort to complete an activity 7 Patient refused to complete or attempt activity 9 The patient did not perform the activity before the current illness or injury 88 Not attempted due to Medical conditions or safety concerns Scootin Supine to/from Sit: 5 Sit to/from Stand: 4 Sit to Lying (QC): 5 Sit to Stand (QC): 4 Gait Training Does the Patient Walk?: Yes Distance (FIM): 3=150 ft Distance: 150' Gait Level of Assist: 5 Gait Persons Needed: 1 Gait Assistive Device: FWW Pt. needs SBA during ambulation. Pt. still has trouble DF the R foot during ambulation which causes the foot to scoot while advancing. Wheelchair Training Does the Pt Use a Wheelchair?: No Exercises Standing: Hip Abduction, Hamstring curls, Heel/toe raises, Marching, Mini squats, Weight shifts Standing Reps: 10 Treatments Pt. transferred from bed to standing. Pt. ambulated to therapy room. Pt. completed exercises in standing position hanging on the parallel bars. Pt. then ambulated back to room and left with needs met. Assessment Current Status: Good Progress Pt. responded to treatment well. Pt. will continue to benefit from therapy services. PT Short Term Goals Short Term Goals Time Frame: Feb 04, 2019 Transfers (B,C,W/C) (FIM): 4 Gait (FIM): 1 Gait Distance Comment: 20' Gait Level of Assist: 3 Gait Assistive Device: Walker Henry Wheelchair Distance: 80' PT Assisted Goals Materials Manager Goals PT Materials Manager Goals Time Frame: Feb 18, 2019 Transfers (B,C,W/C) (FIM): 4 Sit to Lying (QC): 4 Lying-Sitting on Side/Bed(QC): 4 Sit to Stand (QC): 4 Rollin Roll Left to Right (QC): 4 Chair/Njr-so-Exsfq Xfer(QC): 4 Car Transfer (QC): 4 Gait (FIM): 2 Distance: 50' Walk 10 feet (QC): 3 Walk 10ft-Uneven Surface(QC): 3 Walk 50ft with 2 Turns (QC): 3 Gait Level of Assist: 4 Gait Assistive Device: Cane Large Base Quad Wheelchair (FIM): 6 Distance: 150' Wheelchair Level of Assist: 6 Wheel 50 feet with 2 turns (QC: 6 Stairs (FIM): 1 # of Steps: 1 1 Step (curb) (QC): 3 Stairs Level Of Assist: 4 PT Plan Treatment/Plan Treatment Plan: Continue Plan of Care Treatment Plan: Bed Mobility, Concurrent Therapy, Education, Functional Activity Gifty, Functional Strength, Group Therapy, Gait, Safety, Therapeutic Exercise, Transfers Treatment Duration: Feb 18, 2019 Frequency: At least 5 of 7 days/Wk (IRF) Estimated Hrs Per Day: 1.5 hours per day Patient and/or Family Agrees t: Yes Safety Risks/Education Patient Education: Gait Training, Transfer Techniques, Safety Issues Teaching Recipient: Patient Teaching Methods: Discussion Response to Teaching: Return Demonstration Time/GCodes Time In: 1300 Time Out: 1325 Total Billed Treatment Time: 25 Total Billed Treatment 1, GT, Ex G Codes Necessary: JASMIN Calero CORE CHECKER Feb 02, 2019 13:28
--- NOTE | 2019-02-02 13:29 | Occupational Ther Daily Note ---
OT Current Status-Daily Note Subjective No pain reported. Appearance Pt. in bed. Agrees to treatment. Mental Status/Objective Patient Orientation: Person, Non-Verbal/Aphasic Therapy Code Descriptions/Definitions Functional [place] Measure: 0=Not Assessed/NA 4=Minimal Assistance 1=Total Assistance 5=Supervision or Setup 2=Maximal Assistance 6=Modified [place] 3=Moderate Assistance 7=Complete [place] ADL-Treatment Therapy Code Descriptions/Definitions Functional [place] Measure: 0=Not Assessed/NA 4=Minimal Assistance 1=Total Assistance 5=Supervision or Setup 2=Maximal Assistance 6=Modified [place] 3=Moderate Assistance 7=Complete [place] Therapy Quality Codes: 6 Independent with activity with or without an assistive device 5 Patient requires set up or clean up by helper. Patient completes activity by themselves 4 Supervision or touching assist (CGA). [place] provide cues , steadying assist 3 The helper provides less than half the effort to complete the activity 2 The helper provides more than half the effort to complete the activity 1 Dependent. The helper does all the effort to complete an activity 7 Patient refused to complete or attempt activity 9 The patient did not perform the activity before the current illness or injury 88 Not attempted due to Medical conditions or safety concerns Grooming (FIM): 4 (Min assist overall to brush hair and teeth, and wash face. Pt. sits on side of bed and mirror is placed in front of him. Requires assist to place paste on brush. Pt. is able to brush teeth, but requires cues to rinse mouth. OT cleans this for him. Pt. handed brush and is able to brush hair. Given washcloth and asked to wash face, which he does.) Oral Hygiene (QC): 4 Shower/Bathe Self (QC): 3 (Pt. is given rather large t-shirt to don. Cues to thread right hand first. Requires cues for this and then is able to thread left hand. Attempts to well puller head but requires assist.) Upper Body (FIM): 3 (Please see above under bathing. Pt. did not bathe this date.) Upper Body Dressing (QC): 3 Lower Body Dressing (FIM): 2 (Pt. does attempt to don his own sock, but loses balance on bed and falls over. OT does this for him. Pt. attempts to don brief over feet, but requires assist. In stance, pt. attempts to well puller hips , but has difficulty and so OT does this for him.) Lower Body Dressing (QC): 2 On/Off Footwear (QC): 1 Toileting (FIM): 3 (Pt. is able to stand at walker with min assist and hold his own urinal. OT assists with pulling down brief in stance. Noted some BM in underwear. OT handed pt. wipes and pt. able to wash rear justina area with min assist for balance.) Toileting Hygiene (QC): 3 Transfers (B, C, W/C) (FIM): 4 After ADLs, pt. ambulated with walker with min assist. Ambulated approximately 30 feet. Sat to rest. OT asked pt. if he would like a drink, but pt. unable to indicate "yes" or what type. OT brought communication board from room. Pt. able to point to picture of coffee, but then with prompting, pointed to the letters for sprite. OT brought pt. sprite and pt. was able to open this on his own. Noted that he was able to use right hand to hold onto sprite can and pour into cup. Ambulated back to room with min assist. All needs met. Education OT Patient Education: Correct positioning, Exercise program, Modified ADL techniques, Progress toward Goal/Update tx plan, Purpose of tx/functional activities, Reviewed precautions, Rehab process, Transfer techniques Teaching Recipient: Patient Teaching Methods: Demonstration, Discussion Response to Teaching: Verbalize Understanding, Return Demonstration OT Short Term Goals Short Term Goals Time Frame: Feb 11, 2019 Eating(FIM): 4 Grooming(FIM): 44 Bathing(FIM): 3 Upper Body Dressing(FIM): 3 Lower Body Dressing(FIM): 3 Toileting(FIM): 4 Transfers (B,C,W/C) (FIM): 4 Toilet/Commode Transfer(FIM): 4 Shower Transfer(FIM): 4 Additional Short Term Goals: 1-Demonstrate ADL Tasks, 2-Verbalize Understanding , 3-ImproveStrength/Gifty 1=Demonstrate adherence to instructed precautions during ADL tasks. 2=Patient will verbalize/demonstrate understanding of assistive devices/ modifications for ADL. 3=Patient will improve strength/tolerance for activity to enable patient to perform ADL's. OT Fpc Goals Fpc Goals Time Frame: February 25, 2019 Eating (FIM): 6 Eating (QC): 6 Groomin Oral Hygiene (QC): 6 Bathing(FIM): 5 Shower/Bathe Self (QC): 5 Upper Body Dressing(FIM): 5 Upper Body Dressing (QC): 5 Lower Body Dressing(FIM): 5 Lower Body Dressing (QC): 5 On/Off Footwear (QC): 5 Toileting(FIM): 6 Toileting Hygiene (QC): 6 Transfers (B,C,W/C) (FIM): 6 Toilet/Commode Transfer(FIM): 6 Toilet/Commode Transfer (QC): 6 Shower Transfer(FIM): 5 Additional Goals: 1-Demonstrate ADL Tasks, 2-Verbalize Understanding, 3- ImproveStrength/Gifty 1=Demonstrate adherence to instructed precautions during ADL tasks. 2=Patient will verbalize/demonstrate understanding of assistive devices/ modifications for ADL. 3=Patient will improve strength/tolerance for activity to enable patient to perform ADL's. OT Education/Plan Problem List/Assessment Assessment: Decreased Activ Tolerance, Decreased UE Strength, Dependent Transfers, Impaired Coordination, Impaired Funct Balance, Impaired I ADL's, Impaired Self-Care Skills, Restricted Funct UE ROM Discharge Recommendations Plan/Recommendations: Continue POC Therapy D/C Recommendations: Home w/ Family Support, Occupational Therapy Home Care Treatment Plan/Plan of Care Treatment,Training & Education: Yes Patient would benefit from OT for education, treatment and training to promote independence in ADL's, mobility, safety and/or upper extremity function for ADL' s. Plan of Care: ADL Retraining, Functional Mobility, Group Exercise/Act as Ind, UE Funct Exercise/Act Treatment Duration: February 25, 2019 Frequency: At least 5 of 7 days/Wk (IRF) Estimated Hrs Per Day: 1.5 hours per day Agreement: Yes Rehab Potential: Good Time/GCodes Start Time: 09:30 Stop Time: 10:15 Total Time Billed (hr/min): 45 Billed Treatment Time 1, ADL x 45minutes PAULETTE HALL OT Feb 02, 2019 13:29
--- NOTE | 2019-02-02 13:49 | Occupational Ther Daily Note ---
OT Current Status-Daily Note Subjective No pain reported. Appearance Pt. up in chair. Smiles at therapist. Agrees to work with OT. Mental Status/Objective Patient Orientation: Person, Place Therapy Code Descriptions/Definitions Functional [place] Measure: 0=Not Assessed/NA 4=Minimal Assistance 1=Total Assistance 5=Supervision or Setup 2=Maximal Assistance 6=Modified [place] 3=Moderate Assistance 7=Complete [place] ADL-Treatment Therapy Code Descriptions/Definitions Functional [place] Measure: 0=Not Assessed/NA 4=Minimal Assistance 1=Total Assistance 5=Supervision or Setup 2=Maximal Assistance 6=Modified [place] 3=Moderate Assistance 7=Complete [place] Therapy Quality Codes: 6 Independent with activity with or without an assistive device 5 Patient requires set up or clean up by helper. Patient completes activity by themselves 4 Supervision or touching assist (CGA). [place] provide cues , steadying assist 3 The helper provides less than half the effort to complete the activity 2 The helper provides more than half the effort to complete the activity 1 Dependent. The helper does all the effort to complete an activity 7 Patient refused to complete or attempt activity 9 The patient did not perform the activity before the current illness or injury 88 Not attempted due to Medical conditions or safety concerns Transfers (B, C, W/C) (FIM): 4 (Pt. requires min assist to stand from chair and ambulate to therapy gym with walker.) Once in gym, OT places romeo wrap on right UE to hold onto armbike. Tolerated armbike at min resistance x 10 minutes to work on right shoulder ROM and overall strengthening. Pt. tolerated this well with several brief rest breaks. After this task, pt participated in AROM to right UE in all planes, x 10 reps for shoulder flexion, elbow flexion, wrist extension, and finger flexion. Multiple rest breaks noted. Pt. indicates that he is tired. Ambulated back to room with walker and min assist. All needs met. Education OT Patient Education: Correct positioning, Exercise program, Modified ADL techniques, Progress toward Goal/Update tx plan, Purpose of tx/functional activities, Reviewed precautions, Rehab process, Transfer techniques Teaching Recipient: Patient Teaching Methods: Demonstration, Discussion Response to Teaching: Verbalize Understanding, Return Demonstration OT Short Term Goals Short Term Goals Time Frame: Feb 11, 2019 Eating(FIM): 4 Grooming(FIM): 44 Bathing(FIM): 3 Upper Body Dressing(FIM): 3 Lower Body Dressing(FIM): 3 Toileting(FIM): 4 Transfers (B,C,W/C) (FIM): 4 Toilet/Commode Transfer(FIM): 4 Shower Transfer(FIM): 4 Additional Short Term Goals: 1-Demonstrate ADL Tasks, 2-Verbalize Understanding , 3-ImproveStrength/Gifty 1=Demonstrate adherence to instructed precautions during ADL tasks. 2=Patient will verbalize/demonstrate understanding of assistive devices/ modifications for ADL. 3=Patient will improve strength/tolerance for activity to enable patient to perform ADL's. OT Social Media Marketing Analyst Goals Social Media Marketing Analyst Goals Time Frame: February 25, 2019 Eating (FIM): 6 Eating (QC): 6 Groomin Oral Hygiene (QC): 6 Bathing(FIM): 5 Shower/Bathe Self (QC): 5 Upper Body Dressing(FIM): 5 Upper Body Dressing (QC): 5 Lower Body Dressing(FIM): 5 Lower Body Dressing (QC): 5 On/Off Footwear (QC): 5 Toileting(FIM): 6 Toileting Hygiene (QC): 6 Transfers (B,C,W/C) (FIM): 6 Toilet/Commode Transfer(FIM): 6 Toilet/Commode Transfer (QC): 6 Shower Transfer(FIM): 5 Additional Goals: 1-Demonstrate ADL Tasks, 2-Verbalize Understanding, 3- ImproveStrength/Gifty 1=Demonstrate adherence to instructed precautions during ADL tasks. 2=Patient will verbalize/demonstrate understanding of assistive devices/ modifications for ADL. 3=Patient will improve strength/tolerance for activity to enable patient to perform ADL's. OT Education/Plan Problem List/Assessment Assessment: Decreased Activ Tolerance, Decreased UE Strength, Dependent Transfers, Impaired Bed Mobility, Impaired Funct Balance, Impaired I ADL's, Impaired Self-Care Skills, Restricted Funct UE ROM Discharge Recommendations Plan/Recommendations: Continue POC Therapy D/C Recommendations: Home w/ Family Support, Occupational Therapy Home Care, Scheduled Assistance Treatment Plan/Plan of Care Treatment,Training & Education: Yes Patient would benefit from OT for education, treatment and training to promote independence in ADL's, mobility, safety and/or upper extremity function for ADL' s. Plan of Care: ADL Retraining, Functional Mobility, Group Exercise/Act as Ind, UE Funct Exercise/Act Treatment Duration: February 25, 2019 Frequency: At least 5 of 7 days/Wk (IRF) Estimated Hrs Per Day: 1.5 hours per day Agreement: Yes Rehab Potential: Good Time/GCodes Start Time: 11:05 Stop Time: 11:35 Total Time Billed (hr/min): 30 Billed Treatment Time 1, Ex x 2 PAULETTE HALL OT Feb 02, 2019 13:49
[2019-02-02 15:30] VITALS: BP 132/72
[2019-02-02] MEDS: TAMSULOSIN 0.4 MG (FLOMAX) CAP PO SCH (17:51)
[2019-02-02] MEDS: ATORVASTATIN 80 MG (LIPITOR) TABLET PO SCH (20:46)
[2019-02-02] MEDS: LIDOCAINE PATCH REMOVAL TP SCH (20:49)
[2019-02-03 05:01] LABS: BASOPHILS # (AUTO) 0.1 10^3/uL (0.0-0.1); BASOPHILS % (AUTO) 1 % (0-10); EOSINOPHILS # (AUTO) 0.2 10^3/uL (0.0-0.3); EOSINOPHILS % (AUTO) 3 % (0-10); HEMATOCRIT 30 % (40-54); HEMOGLOBIN 10.1 G/DL (13.3-17.7); LYMPHOCYTES # (AUTO) 1.5 X 10^3 (1.0-4.0); LYMPHOCYTES % (AUTO) 20 % (12-44); MEAN CORPUSCULAR HEMOGLOBIN 30 PG (25-34); MEAN CORPUSCULAR HGB CONC 34 G/DL (32-36); MEAN CORPUSCULAR VOLUME 89 FL (80-99); MONOCYTES # (AUTO) 0.9 X 10^3 (0.0-1.0); MONOCYTES % (AUTO) 12 % (0-12); NEUTROPHILS # (AUTO) 4.7 X 10^3 (1.8-7.8); NEUTROPHILS % (AUTO) 64 % (42-75); PLATELET COUNT 412 10^3/uL (130-400); RED CELL DISTRIBUTION WIDTH 13.8 % (10.0-14.5); WHITE BLOOD COUNT 7.4 10^3/uL (4.3-11.0)
[2019-02-03 05:19] LABS: ALANINE AMINOTRANSFERASE 47 U/L (0-55); ALBUMIN 3.5 GM/DL (3.2-4.5); ALKALINE PHOSPHATASE 93 U/L (40-136); BILIRUBIN,TOTAL 0.5 MG/DL (0.1-1.0); BUN/CREATININE RATIO 23; CALCIUM 9.5 MG/DL (8.5-10.1); CARBON DIOXIDE 22 MMOL/L (21-32); CHLORIDE 108 MMOL/L (98-107); CREATININE SERUM 0.75 MG/DL (0.60-1.30); GFR ESTIMATED > 60; GLUCOSE 103 MG/DL (70-105); POTASSIUM 3.9 MMOL/L (3.6-5.0); SODIUM 137 MMOL/L (135-145); TOTAL PROTEIN 6.5 GM/DL (6.4-8.2)
[2019-02-03 05:40] VITALS: BP 132/70
[2019-02-03] MEDS: BETHANECHOL 25 MG (URECHOLINE) TAB PO SCH ×4 (06:03→20:26)
[2019-02-03] MEDS: FERROUS SULF 325 MG (IRON) TAB PO SCH (06:33)
[2019-02-03] MEDS ORDERED: LIDOCAINE UROJET 2% GEL 10 ML PKG ONE (07:15)
[2019-02-03] MEDS: SENNA W/DOCUSATE (SENOKOT S) TABLET PO SCH ×2 (08:05→20:30)
[2019-02-03] MEDS: amLODIPine 5 MG (NORVASC) TAB PO SCH (08:05)
[2019-02-03] MEDS: SODIUM CHLORIDE 1 GM TAB (NON-FORMULARY) PO SCH ×3 (08:05→20:26)
[2019-02-03] MEDS: LIDOCAINE 4% (SALONPAS) PATCH TOP SCH (08:05)
[2019-02-03] MEDS: SERTRALINE 100 MG (ZOLOFT) TAB PO SCH (08:05)
[2019-02-03] MEDS: ASPIRIN 81 MG CHEW (CHILDREN'S ASA) PO SCH (08:05)
[2019-02-03] MEDS: ENOXAPARIN 40 MG/0.4 ML (LOVENOX) SYR SC SCH (08:05)
[2019-02-03] MEDS: POLYETHYLENE GLYCOL 17 GM (MIRALAX) PACK PO SCH ×2 (08:05→20:30)
[2019-02-03] MEDS: BISOPROLOL 5 MG TAB (ZEBETA) PO SCH (08:05)
[2019-02-03] MEDS: CLOPIDOGREL 75 MG (PLAVIX) TABLET PO SCH (08:06)
[2019-02-03] MEDS: prednisoLONE 1% OPTH (PRED FORTE) 5 ML BTL OU SCH ×2 (08:06→20:31)
[2019-02-03] MEDS: DICLOFENAC 1% GEL 100 GM (VOLTAREN) TUBE TOP SCH ×2 (08:06→20:30)
--- NOTE | 2019-02-03 08:36 | PM&R Progress Note ---
Subjective HPI/CC On Admission Date Seen by Provider: Feb 03, 2019 Time Seen by Provider: 08:15 CC: Ischemic stroke HPI: This is a 63-year-old white male of Dr. Schultz who presented to via [facility] [place] ER on 01/23/19 with abrupt onset of severe weakness on the right side underwent stroke workup and found to be a candidate for TPA then shipped to [facility] and subsequently underwent left carotid endarterectomy on 01/25/19 but still remains with right sided weakness with severe expressive aphasia. Reviewed the entire record at [facility] and reviewed his home medications and patient appears to be ready to start aggressive physical therapy in order regain function. His drove him from and reports that he did well on the trip. His [id number] is a nurse and she helped reviewed the discharge med list. He is currently on. Diet with nectar thickened liquids. CT scan via [facility] [place] and [facility] showed a left ischemic process of the MCA distribution. During hospital course the he had no significant clinical decompensation. Patient requires inpatient rehabilitation with 24 hour physician supervision to monitor her labile blood pressure and monitor for any hemorrhagic residual from ischemic stroke that cannot be provided in any type of lower level of care. 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 Subjective/Events-last exam Having urinary retention still Dr. Daniels performed cystoscopy which revealed normal sized prostate Flomax maintained along with Urocholine ordered Bowel movement on 02/01 so medications were restarted Iron was started every other day to prevent abdominal issues due to iron level lab result of 20 resulted on labs today Talking much more Team meeting feels very optimistic because he has return of some function of his left extremities and speech Review of Systems General: Fatigue Neurological: Weakness, Numbness, Incoordination, Change in speech Objective Exam Vital Signs Vital Signs Date Time Temp Pulse Resp B/P (MAP) Pulse Ox O2 Delivery O2 Flow Rate FiO2 02/03/19 20:32 Room Air 02/03/19 18:22 97.7 64 17 132/61 (84) 97 Capillary Refill : General Appearance: No Apparent Distress, WD/WN, Chronically ill HEENT: PERRL/EOMI, Pharynx Normal, Other (right facial droop) Neck: Full Range of Motion, Normal Inspection, Non Tender, Supple, Other ( incision left neck intact) Respiratory: Chest Non Tender, Lungs Clear, Normal Breath Sounds, No Accessory Muscle Use, No Respiratory Distress Cardiovascular: Regular Rate, Rhythm, No Edema, No Gallop, No JVD, No Murmur, Normal Peripheral Pulses Gastrointestinal: Normal Bowel Sounds, No Organomegaly, No Pulsatile Mass, Non Tender, Soft Back: Normal Inspection, No CVA Tenderness, No Vertebral Tenderness Extremity: Normal Capillary Refill, Normal Inspection, Non Tender, No Calf Tenderness, No Pedal Edema, Other (limited ROM right side and mild deficit left) Neurologic/Psychiatric: Alert, Abnormal manager home II-XII, Abnormal Gait, Aphasia ( improved today 02/01/19), Depressed Affect, Facial Droop (right), Motor Weakness ( right) Skin: Normal Color, Warm/Dry, Other (improved left CEA incision site) Lymphatic: No Adenopathy Results/Procedures Lab Laboratory Tests 02/03/19 04:40 Patient resulted labs reviewed. Assessment/Plan Assessment and Plan Assess & Plan/Chief Complaint Assessment: (1) Ischemic stroke (2) S/P carotid endarterectomy 01/25/19 with no improvement in right sided weakness (3) PVD (peripheral vascular disease) (4) CAD (coronary artery disease) (5) Expressive aphasia- improved 02/02/19 (6) Right sided weakness (7) Anemia-iron def so starting iron 02/03/19 (8) Hypertension (9) S/P cataract extraction (10) Dysphagia (11) Hyperlipidemia (12) Constipation-resolved 01/29/19 after meds (13) Klinefelter syndrome (14) Received intravenous tissue plasminogen activator (tPA) in emergency department 01/23/19 at [facility] ER (15) Depression (16) Former smoker (17) Hyponatremia improved on salt tablets (18) DVT prophylaxis (19) Urinary retention-consulted Urology, appreciate recs (20) Lee catheter was in place now DC today but back with urinary retention s/ p cysto so placed on Urecholine with Flomax Plan: Consult Dr Brantley for Urology is appreciated and urinary retention is being managed DVT PPx with Heparin but then DC due to oozing so changed to Lovenox once daily Monitor for pain Left cataract eye care with eye drops until completed visiting frequently and that is helping morale Improving with intensive therapies Reviewed PT/OT speech notes Add Iron therapy every other day to prevent constipation May be able to DC salt tablets (1) Ischemic stroke (2) Anemia Assessment & Plan: Start iron therapy (3) Expressive aphasia (4) CAD (coronary artery disease) (5) Dysphagia (6) Hyperlipidemia (7) PVD (peripheral vascular disease) (8) Hypertension (9) Right sided weakness (10) Klinefelter syndrome (11) Constipation (12) Depression (13) Hyponatremia (14) DVT prophylaxis (15) Received intravenous tissue plasminogen activator (tPA) in emergency department (16) Urinary retention (17) Lee catheter in place (18) S/P carotid endarterectomy (19) S/P cataract extraction (20) Former smoker Clinical Quality Measures DVT/VTE Risk/Contraindication: Risk Factor Score Per Nursin RFS Level Per Nursing on Admit: 4+=Very High BOOGIE WHITTEN DO Feb 03, 2019 08:36
--- NOTE | 2019-02-03 09:35 | NUR ---
provided prayer and small piece of Communion.
--- NOTE | 2019-02-03 10:19 | NUR ---
HI RANGER OPERATOR [place] [facility] through 's employer[place] As HI RANGER OPERATOR disclosed information in reference to primary provider as [facility] (through patient's employer), [place] will not longer cover authorization. HI RANGER OPERATOR continues to await retroactive coverage by [facility]. HI RANGER OPERATOR spoke with patient's to provide progress update as well as insurance update. HI RANGER OPERATOR will also review Team Conference Summary with patient and spouse following meeting today. Addendum: 02/03/19 at 1630 by LUZ MARIA MAGUIRE HI RANGER OPERATOR met with patient to review team conference summary. As patient continues to require contact-guard assistance for transfers, experiences loss of balance, mod assist for dressing and toileting, mod assist with speech activities and is exhibiting no clearance on the right lower extremity, team has recommended patient be reevaluated at next team conference on [phone]. HI RANGER OPERATOR also contacted patient's to review summary. Both are in agreement with reevaluation. HI RANGER OPERATOR will continue to follow
--- NOTE | 2019-02-03 10:34 | Occupational Ther Daily Note ---
OT Current Status-Daily Note Subjective pt laying in bed upon OT arrival. pt agreed to OT TX session withh focus on increasing independence with LB bathing/ dressing and increase R UE FMC. Mental Status/Objective Therapy Code Descriptions/Definitions Functional [place] Measure: 0=Not Assessed/NA 4=Minimal Assistance 1=Total Assistance 5=Supervision or Setup 2=Maximal Assistance 6=Modified [place] 3=Moderate Assistance 7=Complete [place] ADL-Treatment Therapy Code Descriptions/Definitions Functional [place] Measure: 0=Not Assessed/NA 4=Minimal Assistance 1=Total Assistance 5=Supervision or Setup 2=Maximal Assistance 6=Modified [place] 3=Moderate Assistance 7=Complete [place] Therapy Quality Codes: 6 Independent with activity with or without an assistive device 5 Patient requires set up or clean up by helper. Patient completes activity by themselves 4 Supervision or touching assist (CGA). [place] provide cues , steadying assist 3 The helper provides less than half the effort to complete the activity 2 The helper provides more than half the effort to complete the activity 1 Dependent. The helper does all the effort to complete an activity 7 Patient refused to complete or attempt activity 9 The patient did not perform the activity before the current illness or injury 88 Not attempted due to Medical conditions or safety concerns Bathing (FIM): 4 (CGA for safety./ balance. noted right lateral lean. ) Bathing Location: L Upper Leg, R Upper Leg, L Lower Leg (including foot), R Lower Leg (including foot), Buttocks, Perineal Area Shower/Bathe Self (QC): 3 Lower Body Dressing (FIM): 4 (pt demo ability to nina inderpants and pants with additional timing. noted strong right later lean. pt required additinal timing to complete task and MAX VC for correc positiong. pt required assist to pull up pants on right side despite additijnal timing and VC ) Other Treatment pt given peg board to increase right UE coordination. pt required additional timing to complete task. pt reburied [address] 12 pegs on board. noted decrease palm to digits transition. pt then place 12 more pegs on board with cognition component by stating each color he was placing. pt required additional timing secondary to aphasia. pt able to stated 1/12 pegs colors correct with no VC. pt able to state 10/12 colors correct with repetition ( after word said to patient). Education OT Patient Education: Energy conservation, Modified ADL techniques, Progress toward Goal/Update tx plan, Purpose of tx/functional activities, Rehab process, Safety issues, Transfer techniques Teaching Recipient: Patient Teaching Methods: Demonstration Response to Teaching: Verbalize Understanding, Return Demonstration OT Short Term Goals Short Term Goals Time Frame: Feb 11, 2019 Eating(FIM): 4 Grooming(FIM): 44 Bathing(FIM): 3 Upper Body Dressing(FIM): 3 Lower Body Dressing(FIM): 3 Toileting(FIM): 4 Transfers (B,C,W/C) (FIM): 4 Toilet/Commode Transfer(FIM): 4 Shower Transfer(FIM): 4 Additional Short Term Goals: 1-Demonstrate ADL Tasks, 2-Verbalize Understanding , 3-ImproveStrength/Gifty 1=Demonstrate adherence to instructed precautions during ADL tasks. 2=Patient will verbalize/demonstrate understanding of assistive devices/ modifications for ADL. 3=Patient will improve strength/tolerance for activity to enable patient to perform ADL's. OT Nursing Home Goals Nursing Home Goals Time Frame: February 25, 2019 Eating (FIM): 6 Eating (QC): 6 Groomin Oral Hygiene (QC): 6 Bathing(FIM): 5 Shower/Bathe Self (QC): 5 Upper Body Dressing(FIM): 5 Upper Body Dressing (QC): 5 Lower Body Dressing(FIM): 5 Lower Body Dressing (QC): 5 On/Off Footwear (QC): 5 Toileting(FIM): 6 Toileting Hygiene (QC): 6 Transfers (B,C,W/C) (FIM): 6 Toilet/Commode Transfer(FIM): 6 Toilet/Commode Transfer (QC): 6 Shower Transfer(FIM): 5 Additional Goals: 1-Demonstrate ADL Tasks, 2-Verbalize Understanding, 3- ImproveStrength/Gifty 1=Demonstrate adherence to instructed precautions during ADL tasks. 2=Patient will verbalize/demonstrate understanding of assistive devices/ modifications for ADL. 3=Patient will improve strength/tolerance for activity to enable patient to perform ADL's. OT Education/Plan Problem List/Assessment Assessment: Decreased Activ Tolerance, Decreased Safety Aware, Decreased UE Strength, Impaired Coordination, Impaired Funct Balance pt continue to make progress toward all OT goals. pt would benefit from additional OT services to maximize rehab potential and to increase overall independence with ADLS/ functional transfers. Discharge Recommendations Plan/Recommendations: Continue POC Treatment Plan/Plan of Care Treatment,Training & Education: Yes Patient would benefit from OT for education, treatment and training to promote independence in ADL's, mobility, safety and/or upper extremity function for ADL' s. Plan of Care: ADL Retraining, Functional Mobility, Group Exercise/Act as Ind, UE Funct Exercise/Act Treatment Duration: February 25, 2019 Frequency: At least 5 of 7 days/Wk (IRF) Estimated Hrs Per Day: 1.5 hours per day Agreement: Yes Rehab Potential: Good Time/GCodes Start Time: 09:30 Stop Time: 10:30 Total Time Billed (hr/min): 60 Billed Treatment Time ADL 3 units, 40 minutes FA 1 unit, 20 minutes ANALY MEJIA OT Feb 03, 2019 10:34
--- NOTE | 2019-02-03 12:01 | Speech Therapy Daily Note ---
Speech Daily Progress Note Subjective Date Seen by Provider: Feb 03, 2019 Time Seen by Provider: 00:30 The patient worked very well today. Objective The patient completed confrontational naming exercises with general information questions at 75% accuracy given moderate verbal and/or phonemic cues. Assessment Assessment Current Status: Fair Progress Communication Comprehension: 5 Expression: 1 Social Cognition Social Interaction: 5 Problem Solvin Memory: 5 Speech Short Term Goals Short Term Goals Short Term Goals 1) The patient will demonstrate orientation to person, place time and situation with 75% accuracy provided with stimulation and choices. 2) The patient will demonstrate correct naming of ten functional simple items during therapy session. 3) The patient will vollow one-step verbal commands with mod verbal/visual cues with 80% accuracy. 4) The patient will tolerate least restrictive diet level without signs/ symptoms of aspiration. 5) The patient will utilize compensatory strategies as trained for safe oral intake at 90% given minimal cues. Speech Care Home Goals Diploma Pharmacy Technician Goals 1) Patient will communicate basic wants and needs with 2-3 word phrases during therapy sessions. 2) Patient will maintain adequate nutrition/hydration via safe effective swallow function. Speech-Plan Patient/Family Goals Patient/Family Goals: Patient plans to return home with his post rehab. Treatment Plan Speech Therapy Treatment Plan: Continue Plan of Care Patient is showing progress with expressive language. Treatment Duration: Feb 12, 2019 Frequency: 5 times per week Estimated Hrs Per Day: .5 hour per day Rehab Potential: Good Barriers to Learning: New onset CVA, expressive aphasia Pt/Family Agrees to Plan: Yes Safety Risks/Education Teaching Recipient: Patient, Significant Other Teaching Methods: Discussion Response to Teaching: Verbalize Understanding Education Topics Provided: Communication strategies. Time Speech Therapy Time In: 11:30 Speech Therapy Time Out: 12:00 Total Billed Time: 30 Billed Treatment Time [address] Feb 03, 2019 12:01
--- NOTE | 2019-02-03 13:13 | OPERATIVE REPORT ---
DATE OF SERVICE: 02/03/2019 PREOPERATIVE DIAGNOSIS: Urinary retention. POSTOPERATIVE DIAGNOSIS: Urinary retention. OPERATION PERFORMED: Cystoscopy. SURGEON: Gunnar Mccabe MD. ANESTHESIA: Local. COMPLICATIONS: None. DESCRIPTION OF PROCEDURE: With the patient supine in bed after removing the Lee catheter, genitalia were prepped and draped in the usual sterile fashion. Urethra was infiltrated with 2% lidocaine jelly and a penile clamp was applied. This was then removed and a flexible cystoscope was introduced under vision. Anterior urethra was normal. The prostate was very small. The bladder neck was wide open, almost like somebody had a TURP, although the patient denied having had that. The bladder revealed some trabeculations. No foreign body, bladder tumor or stone visualized. Ureteric orifices with clear effluxes. Cystoscope was confirmed in antegrade fashion and the cystoscope was removed. The patient tolerated the procedure and anesthesia well and remained in his bed in stable condition. We will give him a trial of voiding. I am confident he probably will do okay on the Flomax and Urecholine and later on we will taper him on one or both medications once he starts voiding well. If he develops later on any wet type overactive bladder, we will address that with anticholinergic once we know that he empties well. The plan was fully explained to the patient. Job ID: [id number] DocumentID: [id number] Dictated Date: 02/03/2019 09:37:25 Shredding Machine Knife Changer Date: 02/03/2019 13:12:18 Dictated By: GUNNAR MCCABE MD
--- NOTE | 2019-02-03 13:51 | Physical Therapy Daily Note ---
PT Daily Note-Current Subjective Pt reports doing ok. Agreeable to PT session Pain Numeric Pain Scale: 0-No Pain Appearance Upon arrival, pt in bed, incontinent of bowel, awake and alert. Worked with nursing on justina care due to pt's incontinent episode At end of session, pt supine in bed with staff present to perform procedure. Mental Status Patient Orientation: Unable to Assess Attachments: Lee Catheter Transfers Therapy Code Descriptions/Definitions Functional [place] Measure: 0=Not Assessed/NA 4=Minimal Assistance 1=Total Assistance 5=Supervision or Setup 2=Maximal Assistance 6=Modified [place] 3=Moderate Assistance 7=Complete [place] Therapy Quality Codes: 6 Independent with activity with or without an assistive device 5 Patient requires set up or clean up by helper. Patient completes activity by themselves 4 Supervision or touching assist (CGA). [place] provide cues , steadying assist 3 The helper provides less than half the effort to complete the activity 2 The helper provides more than half the effort to complete the activity 1 Dependent. The helper does all the effort to complete an activity 7 Patient refused to complete or attempt activity 9 The patient did not perform the activity before the current illness or injury 88 Not attempted due to Medical conditions or safety concerns Transfers (B, C, W/C) (FIM): 4 Scootin Rollin Supine to/from Sit: 4 Sit to/from Stand: 4 Pt requiring min A with most transitions. Pt requiring verb instruction for hand placement and safety with each sit to stand transition and was able to perform with CGA when following instruction. Min A transfers on and off toilet Gait Training Does the Patient Walk?: Yes Gait (FIM): 4 Distance (FIM): 3=150 ft Distance: 200, 60 Gait Level of Assist: 4 Gait Persons Needed: 1 Gait Assistive Device: FWW Gait quality slightly improves with instruction to increase step height and length RLE. Requires re instruction several times during gait distance Exercises Standing: Marching (high knee), Mini squats, Sit to Stand, Stepping over objects (heel taps onto air ball), Weight shifts Standing Reps: 20 (2x10 each LE) NuStep Minutes: 3 NuStep Workload: 4 Treatments Gait, transfer, balance, strengthening, activity tolerance, functional mobility , safety Assessment Current Status: Good Progress PT Short Term Goals Short Term Goals Time Frame: Feb 04, 2019 Transfers (B,C,W/C) (FIM): 4 Gait (FIM): 1 Gait Distance Comment: 20' Gait Level of Assist: 3 Gait Assistive Device: Walker Henry Wheelchair Distance: 80' PT [facility] Goals Scheduling Specialist Goals PT [facility] Goals Time Frame: Feb 18, 2019 Transfers (B,C,W/C) (FIM): 4 Sit to Lying (QC): 4 Lying-Sitting on Side/Bed(QC): 4 Sit to Stand (QC): 4 Rollin Roll Left to Right (QC): 4 Chair/[id number]-Fdrpj Xfer(QC): 4 Car Transfer (QC): 4 Gait (FIM): 2 Distance: 50' Walk 10 feet (QC): 3 Walk 10ft-Uneven Surface(QC): 3 Walk 50ft with 2 Turns (QC): 3 Gait Level of Assist: 4 Gait Assistive Device: Cane Large Base Quad Wheelchair (FIM): 6 Distance: 150' Wheelchair Level of Assist: 6 Wheel 50 feet with 2 turns (QC: 6 Stairs (FIM): 1 # of Steps: 1 1 Step (curb) (QC): 3 Stairs Level Of Assist: 4 PT Plan Treatment/Plan Treatment Plan: Continue Plan of Care Treatment Plan: Bed Mobility, Concurrent Therapy, Education, Functional Activity Gifty, Functional Strength, Group Therapy, Gait, Safety, Therapeutic Exercise, Transfers Treatment Duration: Feb 18, 2019 Frequency: At least 5 of 7 days/Wk (IRF) Estimated Hrs Per Day: 1.5 hours per day Patient and/or Family Agrees t: Yes Safety Risks/Education Patient Education: Gait Training, Transfer Techniques, Correct Positioning, Safety Issues Teaching Recipient: Patient Teaching Methods: Demonstration, Discussion Response to Teaching: Return Demonstration, Reinforcement Needed Time/GCodes Time In: 800 Time Out: 900 Total Billed Treatment Time: 60 Total Billed Treatment 1 visit, GT x1 unit, EX x1 unit, FA x2 units CHENTE NAJERA SENIOR GRANT WRITER Feb 03, 2019 13:51
--- NOTE | 2019-02-03 14:30 | Therapy Group Daily Note ---
Therapy Daily Group Note Patient Education Topic Home Safety Exercises LE Seated Exercise, UE Exercise Session Ratio (pt:therapist): 4:1 Goal of Session: Home Safety Strategies Goal Met for this Session: Yes Pt Benefit of Group: Contributions to Others, F/U Use of Strategies @Home, Increased Functional Safety, Increased Functional Strength, Improved Cognition, Recognition of Peers, Socialization Other/Notes Pt ambulated using FWW to/from OT group. Group consisted of introductions (name , place, favorite spring activity), socialization, seated UE/LE exercise, home safety education and trivia. Pt able to introduce self appropriately and actively listened to peers. Pt participated in educational topic, verbalizing understanding and asking thought provoking questions. Pt able to answer trivia questions about home safety. Pt completed UE/LE seated exercise, tolerated well. After therapy, pt lying in bed with call light/phone in reach. All needs met in room. Start Time: 13:00 Stop Time: 14:00 Total Billed Treatment Time: 60 Total Billed Treatment 1-SHASHI JACKMAN Feb 03, 2019 14:30
--- NOTE | 2019-02-03 14:49 | NUR ---
Lee removed by Dr. Brantley this morning during bedside cysto. Bed side bladder scan performed. 161 cc found to be in bladder. Will continue to monitor.
[2019-02-03 18:22] VITALS: BP 132/61
[2019-02-03] MEDS: TAMSULOSIN 0.4 MG (FLOMAX) CAP PO SCH (18:25)
--- NOTE | 2019-02-03 18:25 | NUR ---
Bladder scan performed on patient. Greater than 692cc scanned in bladder. Dr. Brantley notified. Bladder drained using straight cath by sterile technique. 550 clear, yellow urine returned.
[2019-02-03] MEDS: ATORVASTATIN 80 MG (LIPITOR) TABLET PO SCH (20:26)
[2019-02-03] MEDS: LIDOCAINE PATCH REMOVAL TP SCH (20:31)
--- NOTE | 2019-02-03 22:00 | NUR ---
FRIEND VISITED EARLIER AND PATIENT APPEARS TO BE VERBALIZING MORE. VOIDED 600 CC IN URINAL. DENIES ANY PAIN.
[2019-02-04 06:00] VITALS: BP 121/74
[2019-02-04] MEDS: BETHANECHOL 25 MG (URECHOLINE) TAB PO SCH ×4 (06:12→21:10)
--- NOTE | 2019-02-04 06:30 | NUR ---
BLADDER SCANNER SHOWED OVER 543 CC URINE. PATIENT ATTEMPTED X 2 TO USE URINAL, BUT UNABLE TO VOID. STRAIGHT CATH'D AND 600 CC URINE RETURN.
--- NOTE | 2019-02-04 07:51 | Occupational Ther Daily Note ---
OT Current Status-Daily Note Subjective Pt alert, sitting up in bed. Pt agrees to therapy and states OK for showering. No indications of pain this morning. Mental Status/Objective Patient Orientation: Person, Place, Non-Verbal/Aphasic, Time, Situation Therapy Code Descriptions/Definitions Functional [place] Measure: 0=Not Assessed/NA 4=Minimal Assistance 1=Total Assistance 5=Supervision or Setup 2=Maximal Assistance 6=Modified [place] 3=Moderate Assistance 7=Complete [place] ADL-Treatment Pt agrees to shower. Pt points to where his clean shirts are and chooses large t-shirt. When asked if pt is wearing underwear or depends, pt gestures to sack in window and nods affirmative when ZAMUDIO holds up a pair of underwear. With HOB elevated, pt requires min A to go from supine to sitting due to LOB backwards, due to tilt of bed. Pt doffs shirt sitting on EOB then stands to doff underwear. Ambulates into bathroom with FWW and transfers into shower with min A. Pt able to complete shower using shower bench, grabbars and hand held shower. Pt bathes most of areas sitting on shower bench after set up, applying soap to hand, then min A in standing to cleanse justina area/buttocks. Pt attempts to cleanse buttocks though inefficient and requires assistance to wash thoroughly. Pt remembers the sequence of donning shirt, due to size of shirt, pt requires assistance to thread over R hand and elbow. Pt attempted to don underpants/pants then required assist to don over feet. Pt attempts to hike pants over hips, continually LOB when attempting so assist needed. Sitting at sink, pt required assist to take off toothpaste lid and prep tube so pt is able to apply paste to toothbrush. After therapy, pt lying in bed with call light/phone in reach. present in room. All needs met in room. Therapy Code Descriptions/Definitions Functional [place] Measure: 0=Not Assessed/NA 4=Minimal Assistance 1=Total Assistance 5=Supervision or Setup 2=Maximal Assistance 6=Modified [place] 3=Moderate Assistance 7=Complete [place] Therapy Quality Codes: 6 Independent with activity with or without an assistive device 5 Patient requires set up or clean up by helper. Patient completes activity by themselves 4 Supervision or touching assist (CGA). [place] provide cues , steadying assist 3 The helper provides less than half the effort to complete the activity 2 The helper provides more than half the effort to complete the activity 1 Dependent. The helper does all the effort to complete an activity 7 Patient refused to complete or attempt activity 9 The patient did not perform the activity before the current illness or injury 88 Not attempted due to Medical conditions or safety concerns Eating (FIM): 5 Eating (QC): 5 Grooming (FIM): 5 Oral Hygiene (QC): 5 Bathing (FIM): 4 Bathing Location: L Arm, R Arm, L Upper Leg, R Upper Leg, L Lower Leg ( including foot), R Lower Leg (including foot), Chest, Abdomen, Buttocks, Perineal Area Shower/Bathe Self (QC): 3 Upper Body (FIM): 3 Upper Body Dressing (QC): 3 Lower Body Dressing (FIM): 2 Lower Body Dressing (QC): 2 On/Off Footwear (QC): 2 Transfers (B, C, W/C) (FIM): 4 Shower Transfer(FIM): 4 OT Short Term Goals Short Term Goals Time Frame: Feb 11, 2019 Eating(FIM): 4 Grooming(FIM): 44 Bathing(FIM): 3 Upper Body Dressing(FIM): 3 Lower Body Dressing(FIM): 3 Toileting(FIM): 4 Transfers (B,C,W/C) (FIM): 4 Toilet/Commode Transfer(FIM): 4 Shower Transfer(FIM): 4 Additional Short Term Goals: 1-Demonstrate ADL Tasks, 2-Verbalize Understanding , 3-ImproveStrength/Gifty 1=Demonstrate adherence to instructed precautions during ADL tasks. 2=Patient will verbalize/demonstrate understanding of assistive devices/ modifications for ADL. 3=Patient will improve strength/tolerance for activity to enable patient to perform ADL's. OT Mcc Goals Mcc Goals Time Frame: February 25, 2019 Eating (FIM): 6 Eating (QC): 6 Groomin Oral Hygiene (QC): 6 Bathing(FIM): 5 Shower/Bathe Self (QC): 5 Upper Body Dressing(FIM): 5 Upper Body Dressing (QC): 5 Lower Body Dressing(FIM): 5 Lower Body Dressing (QC): 5 On/Off Footwear (QC): 5 Toileting(FIM): 6 Toileting Hygiene (QC): 6 Transfers (B,C,W/C) (FIM): 6 Toilet/Commode Transfer(FIM): 6 Toilet/Commode Transfer (QC): 6 Shower Transfer(FIM): 5 Additional Goals: 1-Demonstrate ADL Tasks, 2-Verbalize Understanding, 3- ImproveStrength/Gifty 1=Demonstrate adherence to instructed precautions during ADL tasks. 2=Patient will verbalize/demonstrate understanding of assistive devices/ modifications for ADL. 3=Patient will improve strength/tolerance for activity to enable patient to perform ADL's. OT Education/Plan Problem List/Assessment Assessment: Decreased Safety Aware, Decreased UE Strength, Impaired Coordination, Impaired Funct Balance, Impaired Self-Care Skills, Restricted Funct UE ROM pt continue to make progress toward all OT goals. pt would benefit from additional OT services to maximize rehab potential and to increase overall independence with ADLS/ functional transfers. Discharge Recommendations Plan/Recommendations: Continue POC Treatment Plan/Plan of Care Patient would benefit from OT for education, treatment and training to promote independence in ADL's, mobility, safety and/or upper extremity function for ADL' s. Plan of Care: ADL Retraining, Functional Mobility, Group Exercise/Act as Ind, UE Funct Exercise/Act Treatment Duration: February 25, 2019 Frequency: At least 5 of 7 days/Wk (IRF) Estimated Hrs Per Day: 1.5 hours per day Agreement: Yes Rehab Potential: Good Time/GCodes Start Time: 07:00 Stop Time: 07:45 Total Time Billed (hr/min): 45 Billed Treatment Time 1 visit-ADL 3 (45 min) SHASHI SIMS Feb 04, 2019 07:50
[2019-02-04] MEDS: BISOPROLOL 5 MG TAB (ZEBETA) PO SCH (08:32)
[2019-02-04] MEDS: SERTRALINE 100 MG (ZOLOFT) TAB PO SCH (08:32)
[2019-02-04] MEDS: ASPIRIN 81 MG CHEW (CHILDREN'S ASA) PO SCH (08:32)
[2019-02-04] MEDS: CLOPIDOGREL 75 MG (PLAVIX) TABLET PO SCH (08:32)
[2019-02-04] MEDS: POLYETHYLENE GLYCOL 17 GM (MIRALAX) PACK PO SCH ×2 (08:33→19:57)
[2019-02-04] MEDS: SENNA W/DOCUSATE (SENOKOT S) TABLET PO SCH ×2 (08:33→21:10)
[2019-02-04] MEDS: amLODIPine 5 MG (NORVASC) TAB PO SCH (08:33)
[2019-02-04] MEDS: SODIUM CHLORIDE 1 GM TAB (NON-FORMULARY) PO SCH ×3 (08:33→21:10)
[2019-02-04] MEDS: prednisoLONE 1% OPTH (PRED FORTE) 5 ML BTL OU SCH (08:34)
[2019-02-04] MEDS: ENOXAPARIN 40 MG/0.4 ML (LOVENOX) SYR SC SCH (08:34)
[2019-02-04] MEDS: LIDOCAINE 4% (SALONPAS) PATCH TOP SCH (08:34)
[2019-02-04] MEDS: DICLOFENAC 1% GEL 100 GM (VOLTAREN) TUBE TOP SCH ×2 (08:34→21:11)
[2019-02-04 08:41] VITALS: BP 130/72
--- NOTE | 2019-02-04 08:43 | PM&R Progress Note ---
Subjective HPI/CC On Admission Date Seen by Provider: Feb 04, 2019 Time Seen by Provider: 08:00 CC: Ischemic stroke HPI: This is a 63-year-old white male of Dr. Schultz who presented to via [facility] ER on 01/23/19 with abrupt onset of severe weakness on the right side underwent stroke workup and found to be a candidate for TPA then shipped to [facility] and subsequently underwent left carotid endarterectomy on 01/25/19 but still remains with right sided weakness with severe expressive aphasia. Reviewed the entire record at [facility] and reviewed his home medications and patient appears to be ready to start aggressive physical therapy in order regain function. His drove him from and reports that he did well on the trip. His [id number] is a nurse and she helped reviewed the discharge med list. He is currently on. Diet with nectar thickened liquids. CT scan via [facility] and [facility] showed a left ischemic process of the MCA distribution. During hospital course the he had no significant clinical decompensation. Patient requires inpatient rehabilitation with 24 hour physician supervision to monitor her labile blood pressure and monitor for any hemorrhagic residual from ischemic stroke that cannot be provided in any type of lower level of care. 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 Subjective/Events-last exam Pt talking a little more today. Norvasc of 5 mg will be started today and will discontinue the 10 mg because that was causing hypotension. Finally had 4-5 bowel movements yesterday so that is resolved the constipation. Participating in therapy to improved ambulation and regain independence in ADLs and ultimately return back home with his . Continues to be a fall risk Working on safety management Review of Systems Neurological: Weakness, Numbness, Incoordination, Change in speech Objective Exam Vital Signs Vital Signs Date Time Temp Pulse Resp B/P (MAP) Pulse Ox O2 Delivery O2 Flow Rate FiO2 02/04/19 09:04 Room Air 02/04/19 08:41 61 130/72 (91) 02/04/19 06:00 97.8 18 97 Capillary Refill : General Appearance: No Apparent Distress, WD/WN, Chronically ill HEENT: PERRL/EOMI, Pharynx Normal, Other (right facial droop) Neck: Full Range of Motion, Normal Inspection, Non Tender, Supple, Other ( incision left neck intact) Respiratory: Chest Non Tender, Lungs Clear, Normal Breath Sounds, No Accessory Muscle Use, No Respiratory Distress Cardiovascular: Regular Rate, Rhythm, No Edema, No Gallop, No JVD, No Murmur, Normal Peripheral Pulses Gastrointestinal: Normal Bowel Sounds, No Organomegaly, No Pulsatile Mass, Non Tender, Soft Back: Normal Inspection, No CVA Tenderness, No Vertebral Tenderness Extremity: Normal Capillary Refill, Normal Inspection, Non Tender, No Calf Tenderness, No Pedal Edema, Other (limited ROM right side and mild deficit left) Neurologic/Psychiatric: Alert, Abnormal solution engineer II-XII, Abnormal Gait, Aphasia ( improved today 02/01/19), Depressed Affect, Facial Droop (right), Motor Weakness ( right) Skin: Normal Color, Warm/Dry, Other (improved left CEA incision site) Lymphatic: No Adenopathy Results/Procedures Lab Patient resulted labs reviewed. Assessment/Plan Assessment and Plan Assess & Plan/Chief Complaint Assessment: (1) Ischemic stroke (2) S/P carotid endarterectomy 01/25/19 with no improvement in right sided weakness (3) PVD (peripheral vascular disease) (4) CAD (coronary artery disease) (5) Expressive aphasia- improved 02/02/19 (6) Right sided weakness (7) Anemia-iron def so starting iron 02/03/19 (8) Hypertension (9) S/P cataract extraction (10) Dysphagia (11) Hyperlipidemia (12) Constipation-resolved 01/29/19 after meds (13) Klinefelter syndrome (14) Received intravenous tissue plasminogen activator (tPA) in emergency department 01/23/19 at [facility] ER (15) Depression (16) Former smoker (17) Hyponatremia improved on salt tablets (18) DVT prophylaxis (19) Urinary retention-consulted Urology, appreciate recs (20) Lee catheter was in place now DC today but back with urinary retention s/ p cysto so placed on Urecholine with Flomax Plan: Consult Dr Brantley for Urology is appreciated and urinary retention is being managed DVT PPx with Heparin but then DC due to oozing so changed to Lovenox once daily Monitor for pain Left cataract eye care with eye drops until completed visiting frequently and that is helping morale Improving with intensive therapies Reviewed PT/OT speech notes Add Iron therapy every other day to prevent constipation and he received his first dose today. 02/04/19 May be able to DC salt tablets in the future (1) Ischemic stroke (2) Anemia Assessment & Plan: Start iron therapy (3) Expressive aphasia (4) CAD (coronary artery disease) (5) Dysphagia (6) Hyperlipidemia (7) PVD (peripheral vascular disease) (8) Hypertension (9) Right sided weakness (10) Klinefelter syndrome (11) Constipation (12) Depression (13) Hyponatremia (14) DVT prophylaxis (15) Received intravenous tissue plasminogen activator (tPA) in emergency department (16) Urinary retention (17) Lee catheter in place (18) S/P carotid endarterectomy (19) S/P cataract extraction (20) Former smoker Clinical Quality Measures DVT/VTE Risk/Contraindication: Risk Factor Score Per Nursin RFS Level Per Nursing on Admit: 4+=Very High BOOGIE WHITTEN DO Feb 04, 2019 08:43
--- NOTE | 2019-02-04 10:13 | Physical Therapy Daily Note ---
PT Daily Note-Current Subjective Patient in bed pre tx, agrees to PT, has no complaints of pain. His brought some shoes so he can start using an AFO on the right side now. Appearance Patient in bed post tx with nurse call, phone, tray, all needs met. Mental Status Patient Orientation: Person, Unable to Assess, Non-Verbal/Aphasic Transfers Therapy Code Descriptions/Definitions Functional [place] Measure: 0=Not Assessed/NA 4=Minimal Assistance 1=Total Assistance 5=Supervision or Setup 2=Maximal Assistance 6=Modified [place] 3=Moderate Assistance 7=Complete [place] Therapy Quality Codes: 6 Independent with activity with or without an assistive device 5 Patient requires set up or clean up by helper. Patient completes activity by themselves 4 Supervision or touching assist (CGA). [place] provide cues , steadying assist 3 The helper provides less than half the effort to complete the activity 2 The helper provides more than half the effort to complete the activity 1 Dependent. The helper does all the effort to complete an activity 7 Patient refused to complete or attempt activity 9 The patient did not perform the activity before the current illness or injury 88 Not attempted due to Medical conditions or safety concerns Transfers (B, C, W/C) (FIM): 5 Scootin Rollin Supine to/from Sit: 5 Sit to/from Stand: 5 Bed to/from Chair: 5 close supervision with transfers Gait Training Gait (FIM): 5 Distance: 200'x4 Gait Level of Assist: 5 Gait Persons Needed: 1 Gait Assistive Device: FWW close supervision with turning, right AFO, foot still drags the floor a little but is improved with using the AFO. Exercises NuStep Minutes: 15 NuStep Workload: 5 Treatments bed mobility and transfers, ambulation, functional strengthening Assessment Current Status: Fair Progress patient still needs frequent rest breaks but endurance is improving PT Short Term Goals Short Term Goals Time Frame: Feb 04, 2019 Transfers (B,C,W/C) (FIM): 4 Gait (FIM): 1 Gait Distance Comment: 20' Gait Level of Assist: 3 Gait Assistive Device: Walker Henry Wheelchair Distance: 80' PT Flight Crew Time Clerk Goals Flight Crew Time Clerk Goals PT Intermediate Goals Time Frame: Feb 18, 2019 Transfers (B,C,W/C) (FIM): 4 Sit to Lying (QC): 4 Lying-Sitting on Side/Bed(QC): 4 Sit to Stand (QC): 4 Rollin Roll Left to Right (QC): 4 Chair/Quc-xw-Laaro Xfer(QC): 4 Car Transfer (QC): 4 Gait (FIM): 2 Distance: 50' Walk 10 feet (QC): 3 Walk 10ft-Uneven Surface(QC): 3 Walk 50ft with 2 Turns (QC): 3 Gait Level of Assist: 4 Gait Assistive Device: Cane Large Base Quad Wheelchair (FIM): 6 Distance: 150' Wheelchair Level of Assist: 6 Wheel 50 feet with 2 turns (QC: 6 Stairs (FIM): 1 # of Steps: 1 1 Step (curb) (QC): 3 Stairs Level Of Assist: 4 PT Plan Problem List Problem List: Activity Tolerance, Functional Strength, Safety, Balance, Gait, Transfer, Bed Mobility, ROM Treatment/Plan Treatment Plan: Continue Plan of Care Treatment Plan: Bed Mobility, Concurrent Therapy, Education, Functional Activity Gifty, Functional Strength, Group Therapy, Gait, Safety, Therapeutic Exercise, Transfers Treatment Duration: Feb 18, 2019 Frequency: At least 5 of 7 days/Wk (IRF) Estimated Hrs Per Day: 1.5 hours per day Patient and/or Family Agrees t: Yes Safety Risks/Education Patient Education: Gait Training, Transfer Techniques, Correct Positioning, Safety Issues Teaching Recipient: Patient Teaching Methods: Demonstration, Discussion Response to Teaching: Reinforcement Needed Time/GCodes Time In: 0915 Time Out: 1015 Total Billed Treatment Time: 60 Total Billed Treatment 1 visit EX 15' GT 45' JAXON BRAUN PT Feb 04, 2019 10:13
--- NOTE | 2019-02-04 10:47 | Speech Therapy Daily Note ---
Speech Daily Progress Note Subjective Date Seen by Provider: Feb 04, 2019 Time Seen by Provider: 00:30 Patient was alert and participated well with therapy. Objective Patient completed confrontational naming tasks at 80% with min to mod verbal cues. Assessment Assessment Current Status: Good Progress Treatment Plan Continue Plan of Care Communication Comprehension: 5 Expression: 1 Social Cognition Social Interaction: 5 Problem Solvin Memory: 5 Speech Short Term Goals Short Term Goals Short Term Goals 1) The patient will demonstrate orientation to person, place time and situation with 75% accuracy provided with stimulation and choices. 2) The patient will demonstrate correct naming of ten functional simple items during therapy session. 3) The patient will vollow one-step verbal commands with mod verbal/visual cues with 80% accuracy. 4) The patient will tolerate least restrictive diet level without signs/ symptoms of aspiration. 5) The patient will utilize compensatory strategies as trained for safe oral intake at 90% given minimal cues. Speech Penitentiary Goals Bellows Filler Goals 1) Patient will communicate basic wants and needs with 2-3 word phrases during therapy sessions. 2) Patient will maintain adequate nutrition/hydration via safe effective swallow function. Speech-Plan Patient/Family Goals Patient/Family Goals: The patient plans to return home with his post rehab. Treatment Plan Speech Therapy Treatment Plan: Continue Plan of Care Patient is progressing well as a result of skilled ST services. Treatment Duration: Feb 12, 2019 Frequency: 5 times per week Estimated Hrs Per Day: .5 hour per day Rehab Potential: Good Barriers to Learning: New onset CVA Pt/Family Agrees to Plan: Yes Safety Risks/Education Teaching Recipient: Patient Teaching Methods: Discussion Response to Teaching: Verbalize Understanding Education Topics Provided: Safety within his room. Time Speech Therapy Time In: 10:15 Speech Therapy Time Out: 10:45 Total Billed Time: 30 Billed Treatment Time 1, EMILY Rivero Feb 04, 2019 10:47
--- NOTE | 2019-02-04 11:47 | Occupational Ther Daily Note ---
OT Current Status-Daily Note Subjective Pt alert, lying in bed. Pt non-verbal, difficult to assess pain. Agrees to therapy. Mental Status/Objective Patient Orientation: Person, Place, Non-Verbal/Aphasic, Time, Situation Therapy Code Descriptions/Definitions Functional [place] Measure: 0=Not Assessed/NA 4=Minimal Assistance 1=Total Assistance 5=Supervision or Setup 2=Maximal Assistance 6=Modified [place] 3=Moderate Assistance 7=Complete [place] ADL-Treatment Therapy Code Descriptions/Definitions Functional [place] Measure: 0=Not Assessed/NA 4=Minimal Assistance 1=Total Assistance 5=Supervision or Setup 2=Maximal Assistance 6=Modified [place] 3=Moderate Assistance 7=Complete [place] Therapy Quality Codes: 6 Independent with activity with or without an assistive device 5 Patient requires set up or clean up by helper. Patient completes activity by themselves 4 Supervision or touching assist (CGA). [place] provide cues , steadying assist 3 The helper provides less than half the effort to complete the activity 2 The helper provides more than half the effort to complete the activity 1 Dependent. The helper does all the effort to complete an activity 7 Patient refused to complete or attempt activity 9 The patient did not perform the activity before the current illness or injury 88 Not attempted due to Medical conditions or safety concerns Toileting (FIM): 4 (Using FWW and grabbars, pt able to complete hygiene sitting on toilet then assist to hike over buttocks while pt hikes front of pants.) Toileting Hygiene (QC): 3 Transfers (B, C, W/C) (FIM): 4 (CGA using FWW) Toilet/Commode Transfer (FIM): 4 (CGA for safety) Toilet Transfer (QC): 3 Other Treatment Pt ambulated to therapy gym to complete UE exercises to increase strength and AROM of R UE for daily functional tasks. Arm bike 10 min, 1 min rotating forward with facilitation to maintain R aluminum molding machine operator, 1 min rotating backward with facilitation to maintain R aluminum molding machine operator. 8 min forward rotation with R hand wrapped to maintain aluminum molding machine operator while working on UE strengthening. After therapy, pt lying in bed with call light/phone in reach. Nrsg in room. All needs met in room. OT Short Term Goals Short Term Goals Time Frame: Feb 11, 2019 Eating(FIM): 4 Grooming(FIM): 44 Bathing(FIM): 3 Upper Body Dressing(FIM): 3 Lower Body Dressing(FIM): 3 Toileting(FIM): 4 Transfers (B,C,W/C) (FIM): 4 Toilet/Commode Transfer(FIM): 4 Shower Transfer(FIM): 4 Additional Short Term Goals: 1-Demonstrate ADL Tasks, 2-Verbalize Understanding , 3-ImproveStrength/Gifty 1=Demonstrate adherence to instructed precautions during ADL tasks. 2=Patient will verbalize/demonstrate understanding of assistive devices/ modifications for ADL. 3=Patient will improve strength/tolerance for activity to enable patient to perform ADL's. OT Strategy Associate Goals Strategy Associate Goals Time Frame: February 25, 2019 Eating (FIM): 6 Eating (QC): 6 Groomin Oral Hygiene (QC): 6 Bathing(FIM): 5 Shower/Bathe Self (QC): 5 Upper Body Dressing(FIM): 5 Upper Body Dressing (QC): 5 Lower Body Dressing(FIM): 5 Lower Body Dressing (QC): 5 On/Off Footwear (QC): 5 Toileting(FIM): 6 Toileting Hygiene (QC): 6 Transfers (B,C,W/C) (FIM): 6 Toilet/Commode Transfer(FIM): 6 Toilet/Commode Transfer (QC): 6 Shower Transfer(FIM): 5 Additional Goals: 1-Demonstrate ADL Tasks, 2-Verbalize Understanding, 3- ImproveStrength/Gifty 1=Demonstrate adherence to instructed precautions during ADL tasks. 2=Patient will verbalize/demonstrate understanding of assistive devices/ modifications for ADL. 3=Patient will improve strength/tolerance for activity to enable patient to perform ADL's. OT Education/Plan Problem List/Assessment Assessment: Decreased UE Strength, Impaired Self-Care Skills, Restricted Funct UE ROM pt continue to make progress toward all OT goals. pt would benefit from additional OT services to maximize rehab potential and to increase overall independence with ADLS/ functional transfers. Discharge Recommendations Plan/Recommendations: Continue POC Treatment Plan/Plan of Care Patient would benefit from OT for education, treatment and training to promote independence in ADL's, mobility, safety and/or upper extremity function for ADL' s. Plan of Care: ADL Retraining, Functional Mobility, Group Exercise/Act as Ind, UE Funct Exercise/Act Treatment Duration: February 25, 2019 Frequency: At least 5 of 7 days/Wk (IRF) Estimated Hrs Per Day: 1.5 hours per day Agreement: Yes Rehab Potential: Good Time/GCodes Start Time: 11:00 Stop Time: 11:30 Total Time Billed (hr/min): 30 Billed Treatment Time 1 visit-ADL 1 (20 min) EX 1 (10 min) SHASHI SIMS Feb 04, 2019 11:47
--- NOTE | 2019-02-04 11:48 | NUR ---
Up to the BR with therapy. Unable to void. Bladder scan showing 411mls. Straight cath done per orders. 300mls of cloudy urine immediate return. Patient tolerated well.
--- NOTE | 2019-02-04 12:07 | NUR ---
Dr. Brantley here with orders to increase Urecholine to 50 MG PO AC&HS.
--- NOTE | 2019-02-04 12:14 | Progress Note-Urology ---
Progress Note-Urology Progress Notes/Assess & Plan Progress/Assessment & Plan VOIDING ON OWN BUT SOME RETENTION NEEDING STRAIGHT CATH. TOLERATES MEDS WELL. WE WILL INCREASE URECHOLINE TO 50 AC AND HS Final Diagnosis URINE RETENTION CORNELIO MCCABE MD Feb 04, 2019 12:14
[2019-02-04] MEDS ORDERED: PATIENT MAY USE OWN MED,SINGLE MED PO SCH (13:45)
--- NOTE | 2019-02-04 13:49 | NUR ---
Call to [facility] to clarify eye gtts. OK to DC Gentamicin. Prednisolone- 1 drop QID in left eye and Simbrinza- 1 drop OU BID.
[2019-02-04] MEDS: SIMBRINZA PO SCH ×2 (14:12→21:10)
[2019-02-04] MEDS: EYE PO SCH ×2 (14:12→21:10)
--- NOTE | 2019-02-04 15:18 | NUR ---
PT ADVANCED TO MECHANICAL SOFT DIET AND IS EATING FAIR, 55% MEALS. WEIGHT HAS DECREASED. WILL BEGIN ENLIVE TID TO INCREASE PO INTAKE.
--- NOTE | 2019-02-04 15:27 | Physical Therapy Daily Note ---
PT Daily Note-Current Subjective Agrees. Transfers Therapy Code Descriptions/Definitions Functional [place] Measure: 0=Not Assessed/NA 4=Minimal Assistance 1=Total Assistance 5=Supervision or Setup 2=Maximal Assistance 6=Modified [place] 3=Moderate Assistance 7=Complete [place] Therapy Quality Codes: 6 Independent with activity with or without an assistive device 5 Patient requires set up or clean up by helper. Patient completes activity by themselves 4 Supervision or touching assist (CGA). [place] provide cues , steadying assist 3 The helper provides less than half the effort to complete the activity 2 The helper provides more than half the effort to complete the activity 1 Dependent. The helper does all the effort to complete an activity 7 Patient refused to complete or attempt activity 9 The patient did not perform the activity before the current illness or injury 88 Not attempted due to Medical conditions or safety concerns Pt was able to transfer in and out of bed with SBA only and occas verbal cues for completion of task. Pt sat EOB with SBA and lifted his feet to put shoes on ; seated balance slightly impaired and he tends to lean/fall to his right; able to correct with verbal cues but does not initiate until cued. Sit to stand all attempts with CGA and pt was able to place hands in correct sequence 100% of the time. Gait Training Gait training with AFO in situ. Pt walked 150 ft x 2 with FWW with CGA with skilled cues 50% of the time for foot clearance Right. Able to clear toes with frequent reminders. Then worked on challenged gait with uneven surface, curb step and cones to weave in and out of. Pt able to complete this course (125 ft ) x 4 reps with FWW with close CGA. Treatments Functional gait training with varied surface and obstacles. Assessment Current Status: Good Progress Progressing. Follows cues well but does still need cues. PT Short Term Goals Short Term Goals Time Frame: Feb 04, 2019 Transfers (B,C,W/C) (FIM): 4 (met) Gait (FIM): 1 (met) Gait Distance Comment: 20' Gait Level of Assist: 3 Gait Assistive Device: Walker Henry Wheelchair Distance: 80' PT Fishing Line Winding Machine Operator Goals Jail Goals PT Fishing Line Winding Machine Operator Goals Time Frame: Feb 18, 2019 Transfers (B,C,W/C) (FIM): 4 Sit to Lying (QC): 4 Lying-Sitting on Side/Bed(QC): 4 Sit to Stand (QC): 4 Rollin Roll Left to Right (QC): 4 Chair/Jui-sc-Iieah Xfer(QC): 4 Car Transfer (QC): 4 Gait (FIM): 2 Distance: 50' Walk 10 feet (QC): 3 Walk 10ft-Uneven Surface(QC): 3 Walk 50ft with 2 Turns (QC): 3 Gait Level of Assist: 4 Gait Assistive Device: Cane Large Base Quad Wheelchair (FIM): 6 Distance: 150' Wheelchair Level of Assist: 6 Wheel 50 feet with 2 turns (QC: 6 Stairs (FIM): 1 # of Steps: 1 1 Step (curb) (QC): 3 Stairs Level Of Assist: 4 PT Plan Problem List Problem List: Activity Tolerance, Functional Strength, Safety, Balance, Gait, Transfer, Bed Mobility Treatment/Plan Treatment Plan: Continue Plan of Care Treatment Plan: Bed Mobility, Concurrent Therapy, Education, Functional Activity Gifty, Functional Strength, Group Therapy, Gait, Safety, Therapeutic Exercise, Transfers Treatment Duration: Feb 18, 2019 Frequency: At least 5 of 7 days/Wk (IRF) Estimated Hrs Per Day: 1.5 hours per day Patient and/or Family Agrees t: Yes Safety Risks/Education Patient Education: Gait Training, Safety Issues Teaching Recipient: Patient Teaching Methods: Demonstration Response to Teaching: Reinforcement Needed Time/GCodes Time In: 1420 Time Out: 1452 Total Billed Treatment Time: 32 Total Billed Treatment vsiit GT 32 SHASHI MAHAJAN PT Feb 04, 2019 15:27
[2019-02-04] MEDS: TAMSULOSIN 0.4 MG (FLOMAX) CAP PO SCH (17:04)
[2019-02-04] MEDS: prednisoLONE 1% OPTH (PRED FORTE) 5 ML BTL OS SCH ×2 (17:06→21:09)
--- NOTE | 2019-02-04 17:22 | NUR ---
Assisted up to the BR. Was able to void in toilet. Post void bladder scan done and showing 54mls. Will continue to monitor.
[2019-02-04 18:22] VITALS: BP 143/63
[2019-02-04] MEDS: ATORVASTATIN 80 MG (LIPITOR) TABLET PO SCH (21:10)
[2019-02-04] MEDS: LIDOCAINE PATCH REMOVAL TP SCH (21:11)
[2019-02-05 05:05] VITALS: BP 132/75
[2019-02-05] MEDS: FERROUS SULF 325 MG (IRON) TAB PO SCH (06:20)
[2019-02-05] MEDS: BETHANECHOL 25 MG (URECHOLINE) TAB PO SCH ×4 (06:21→20:57)
--- NOTE | 2019-02-05 08:32 | PM&R Progress Note ---
Subjective HPI/CC On Admission Date Seen by Provider: Feb 05, 2019 Time Seen by Provider: 08:15 CC: Ischemic stroke HPI: This is a 63-year-old white male of Dr. Schultz who presented to via [facility] [place] ER on 01/23/19 with abrupt onset of severe weakness on the right side underwent stroke workup and found to be a candidate for TPA then shipped to [facility] and subsequently underwent left carotid endarterectomy on 01/25/19 but still remains with right sided weakness with severe expressive aphasia. Reviewed the entire record at [facility] and reviewed his home medications and patient appears to be ready to start aggressive physical therapy in order regain function. His drove him from and reports that he did well on the trip. His [id number] is a nurse and she helped reviewed the discharge med list. He is currently on. Diet with nectar thickened liquids. CT scan via [facility] [place] and [facility] showed a left ischemic process of the MCA distribution. During hospital course the he had no significant clinical decompensation. Patient requires inpatient rehabilitation with 24 hour physician supervision to monitor her labile blood pressure and monitor for any hemorrhagic residual from ischemic stroke that cannot be provided in any type of lower level of care. 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 Subjective/Events-last exam Pt talking a more today than yesterday. Norvasc of 5 mg is tolerated and will monitor for hypotension BM's regular and holding Miralax Participating in therapy and likely will be able to return home with assistive devices Continues to be a fall risk Working on safety management Voiding well without catheter Appreciate Dr Brantley Review of Systems General: Fatigue Neurological: Weakness, Numbness, Incoordination Objective Exam Vital Signs Vital Signs Date Time Temp Pulse Resp B/P (MAP) Pulse Ox O2 Delivery O2 Flow Rate FiO2 02/05/19 09:03 64 138/70 (92) 02/05/19 09:00 Room Air 02/05/19 05:05 97.4 18 97 Capillary Refill : General Appearance: No Apparent Distress, WD/WN, Chronically ill HEENT: PERRL/EOMI, Pharynx Normal, Other (right facial droop) Neck: Full Range of Motion, Normal Inspection, Non Tender, Supple, Other ( incision left neck intact) Respiratory: Chest Non Tender, Lungs Clear, Normal Breath Sounds, No Accessory Muscle Use, No Respiratory Distress Cardiovascular: Regular Rate, Rhythm, No Edema, No Gallop, No JVD, No Murmur, Normal Peripheral Pulses Gastrointestinal: Normal Bowel Sounds, No Organomegaly, No Pulsatile Mass, Non Tender, Soft Back: Normal Inspection, No CVA Tenderness, No Vertebral Tenderness Extremity: Normal Capillary Refill, Normal Inspection, Non Tender, No Calf Tenderness, No Pedal Edema, Other (limited ROM right side and mild deficit left) Neurologic/Psychiatric: Alert, Abnormal radial arm saw operator II-XII, Abnormal Gait, Aphasia ( improved today 02/01/19), Depressed Affect, Facial Droop (right), Motor Weakness ( right) Skin: Normal Color, Warm/Dry, Other (improved left CEA incision site) Lymphatic: No Adenopathy Results/Procedures Lab Patient resulted labs reviewed. Assessment/Plan Assessment and Plan Assess & Plan/Chief Complaint Assessment: (1) Ischemic stroke (2) S/P carotid endarterectomy 01/25/19 with no improvement in right sided weakness (3) PVD (peripheral vascular disease) (4) CAD (coronary artery disease) (5) Expressive aphasia- improved 02/02/19 (6) Right sided weakness (7) Anemia-iron def so starting iron 02/03/19 (8) Hypertension (9) S/P cataract extraction (10) Dysphagia (11) Hyperlipidemia (12) Constipation-resolved 01/29/19 after meds (13) Klinefelter syndrome (14) Received intravenous tissue plasminogen activator (tPA) in emergency department 01/23/[address] [facility] ER (15) Depression (16) Former smoker (17) Hyponatremia improved on salt tablets (18) DVT prophylaxis (19) Urinary retention-consulted Urology, appreciate recs (20) Lee catheter was in place now DC today but back with urinary retention s/ p cysto so placed on Urecholine with Flomax Plan: Consult Dr Brantley for Urology is appreciated and urinary retention is being managed and now no catheter and voiding well DVT PPx with Heparin but then DC due to oozing so changed to Lovenox once daily Monitor for pain Left cataract eye care with eye drops until completed visiting frequently and that is helping morale Improving with intensive therapies Reviewed PT/OT speech notes Add Iron therapy every other day to prevent constipation and he received his first dose today. 02/04/19 May be able to DC salt tablets in the future (1) Ischemic stroke (2) Anemia Assessment & Plan: Start iron therapy (3) Expressive aphasia (4) CAD (coronary artery disease) (5) Dysphagia (6) Hyperlipidemia (7) PVD (peripheral vascular disease) (8) Hypertension (9) Right sided weakness (10) Klinefelter syndrome (11) Constipation (12) Depression (13) Hyponatremia (14) DVT prophylaxis (15) Received intravenous tissue plasminogen activator (tPA) in emergency department (16) Urinary retention (17) Lee catheter in place (18) S/P carotid endarterectomy (19) S/P cataract extraction (20) Former smoker Clinical Quality Measures DVT/VTE Risk/Contraindication: Risk Factor Score Per Nursin RFS Level Per Nursing on Admit: 4+=Very High BOOGIE WHITTEN DO Feb 05, 2019 08:32
[2019-02-05 09:03] VITALS: BP 138/70
[2019-02-05] MEDS: amLODIPine 5 MG (NORVASC) TAB PO SCH (09:04)
[2019-02-05] MEDS: SODIUM CHLORIDE 1 GM TAB (NON-FORMULARY) PO SCH ×3 (09:04→20:56)
[2019-02-05] MEDS: BISOPROLOL 5 MG TAB (ZEBETA) PO SCH (09:04)
[2019-02-05] MEDS: LIDOCAINE 4% (SALONPAS) PATCH TOP SCH (09:04)
[2019-02-05] MEDS: ENOXAPARIN 40 MG/0.4 ML (LOVENOX) SYR SC SCH (09:04)
[2019-02-05] MEDS: SERTRALINE 100 MG (ZOLOFT) TAB PO SCH (09:04)
[2019-02-05] MEDS: CLOPIDOGREL 75 MG (PLAVIX) TABLET PO SCH (09:05)
[2019-02-05] MEDS: SENNA W/DOCUSATE (SENOKOT S) TABLET PO SCH ×2 (09:05→19:43)
[2019-02-05] MEDS: ASPIRIN 81 MG CHEW (CHILDREN'S ASA) PO SCH (09:05)
[2019-02-05] MEDS: DICLOFENAC 1% GEL 100 GM (VOLTAREN) TUBE TOP SCH ×2 (09:06→20:56)
[2019-02-05] MEDS: prednisoLONE 1% OPTH (PRED FORTE) 5 ML BTL OS SCH ×4 (09:06→20:56)
[2019-02-05] MEDS: EYE PO SCH ×2 (09:06→20:56)
[2019-02-05] MEDS: SIMBRINZA PO SCH ×2 (09:06→20:56)
[2019-02-05] MEDS: POLYETHYLENE GLYCOL 17 GM (MIRALAX) PACK PO SCH ×2 (09:47→19:43)
--- NOTE | 2019-02-05 10:00 | Progress Note-Urology ---
Progress Note-Urology Progress Notes/Assess & Plan Progress/Assessment & Plan VOIDING BETTER. TOLERATES MEDS WELL. KEEP SAME PLAN Final Diagnosis URINE RETENTION CORNELIO MCCABE MD Feb 05, 2019 10:00
--- NOTE | 2019-02-05 10:11 | Physical Therapy Daily Note ---
PT Daily Note-Current Subjective Patient in bed pre tx, agrees to PT, has no complaints of pain. Appearance Patient BTB post tx with nurse call, phone, tray, all needs met. Mental Status Patient Orientation: Person, Unable to Assess, Non-Verbal/Aphasic Transfers Therapy Code Descriptions/Definitions Functional [place] Measure: 0=Not Assessed/NA 4=Minimal Assistance 1=Total Assistance 5=Supervision or Setup 2=Maximal Assistance 6=Modified [place] 3=Moderate Assistance 7=Complete [place] Therapy Quality Codes: 6 Independent with activity with or without an assistive device 5 Patient requires set up or clean up by helper. Patient completes activity by themselves 4 Supervision or touching assist (CGA). [place] provide cues , steadying assist 3 The helper provides less than half the effort to complete the activity 2 The helper provides more than half the effort to complete the activity 1 Dependent. The helper does all the effort to complete an activity 7 Patient refused to complete or attempt activity 9 The patient did not perform the activity before the current illness or injury 88 Not attempted due to Medical conditions or safety concerns Transfers (B, C, W/C) (FIM): 5 Scootin Rollin Supine to/from Sit: 5 Sit to/from Stand: 5 Bed to/from Chair: 5 Gait Training Gait (FIM): 5 Distance: 200'x3, 100' Gait Level of Assist: 5 Gait Persons Needed: 1 Gait Assistive Device: FWW Patient ambulated 3 times 200' with a rolling walker with SBA, no moments of unsteadiness, better foot clearance on the right side. He also ambulated 100' with a small base quad cane with CGA/Tressa, needs very slight assist for unsteadiness, poorer foot clearance on the right side. Uses AFO on the right side. Exercises Standing: Hip Abduction, Mini squats Standing Reps: 15 sidestepping in parallel bars 8'x8 NuStep Minutes: 15 NuStep Workload: 5 Treatments bed mobility and transfers, ambulation, functional strengthening Assessment Current Status: Fair Progress improving ambulation, started using a quad cane today PT Short Term Goals Short Term Goals Time Frame: Feb 04, 2019 Transfers (B,C,W/C) (FIM): 4 (met) Gait (FIM): 1 (met) Gait Distance Comment: 20' Gait Level of Assist: 3 Gait Assistive Device: Walker Henry Wheelchair Distance: 80' PT Care Home Goals Sorting Supervisor Goals PT Sorting Supervisor Goals Time Frame: Feb 18, 2019 Transfers (B,C,W/C) (FIM): 4 Sit to Lying (QC): 4 Lying-Sitting on Side/Bed(QC): 4 Sit to Stand (QC): 4 Rollin Roll Left to Right (QC): 4 Chair/Sva-oh-Tgfrv Xfer(QC): 4 Car Transfer (QC): 4 Gait (FIM): 2 Distance: 50' Walk 10 feet (QC): 3 Walk 10ft-Uneven Surface(QC): 3 Walk 50ft with 2 Turns (QC): 3 Gait Level of Assist: 4 Gait Assistive Device: Cane Large Base Quad Wheelchair (FIM): 6 Distance: 150' Wheelchair Level of Assist: 6 Wheel 50 feet with 2 turns (QC: 6 Stairs (FIM): 1 # of Steps: 1 1 Step (curb) (QC): 3 Stairs Level Of Assist: 4 PT Plan Problem List Problem List: Activity Tolerance, Functional Strength, Safety, Balance, Gait, Transfer, Bed Mobility, ROM Treatment/Plan Treatment Plan: Continue Plan of Care Treatment Plan: Bed Mobility, Concurrent Therapy, Education, Functional Activity Gifty, Functional Strength, Group Therapy, Gait, Safety, Therapeutic Exercise, Transfers Treatment Duration: Feb 18, 2019 Frequency: At least 5 of 7 days/Wk (IRF) Estimated Hrs Per Day: 1.5 hours per day Patient and/or Family Agrees t: Yes Safety Risks/Education Patient Education: Gait Training, Transfer Techniques, Correct Positioning, Safety Issues Teaching Recipient: Patient Teaching Methods: Demonstration, Discussion Response to Teaching: Reinforcement Needed Time/GCodes Time In: 0915 Time Out: 1015 Total Billed Treatment Time: 60 Total Billed Treatment 1 visit EX 25' GT 35' JAXON BRAUN PT Feb 05, 2019 10:11
--- NOTE | 2019-02-05 10:23 | NUR ---
[place] MACHINE OPERATOR HELPER faxed clinical updates to [facility] insurance provider for approval for an additional 7 days.
--- NOTE | 2019-02-05 11:21 | Speech Therapy Daily Note ---
Speech Daily Progress Note Subjective Date Seen by Provider: Feb 05, 2019 Time Seen by Provider: 00:30 The patient was resting in his bed, alert and talkative today. Objective The patient was able to complete word finding exercises with moderate cues at 75 %. Assessment Assessment Current Status: Good Progress Treatment Plan Continue Plan of Care Communication Comprehension: 5 Expression: 1 Social Cognition Social Interaction: 5 Problem Solvin Memory: 5 Speech Short Term Goals Short Term Goals Short Term Goals 1) The patient will demonstrate orientation to person, place time and situation with 75% accuracy provided with stimulation and choices. 2) The patient will demonstrate correct naming of ten functional simple items during therapy session. 3) The patient will vollow one-step verbal commands with mod verbal/visual cues with 80% accuracy. 4) The patient will tolerate least restrictive diet level without signs/ symptoms of aspiration. 5) The patient will utilize compensatory strategies as trained for safe oral intake at 90% given minimal cues. Speech Mcfp Goals Marketing Proposal Coordinator Goals 1) Patient will communicate basic wants and needs with 2-3 word phrases during therapy sessions. 2) Patient will maintain adequate nutrition/hydration via safe effective swallow function. Speech-Plan Patient/Family Goals Patient/Family Goals: The patient plans to return home with his post rehab. Treatment Plan Speech Therapy Treatment Plan: Continue Plan of Care The patient is progressing well as a result of skilled ST. Treatment Duration: Feb 12, 2019 Frequency: 5 times per week Estimated Hrs Per Day: .5 hour per day Rehab Potential: Good Barriers to Learning: The patient is a recent onset CVA with expressive aphasia. Pt/Family Agrees to Plan: Yes Safety Risks/Education Teaching Recipient: Patient Teaching Methods: Discussion Response to Teaching: Verbalize Understanding Education Topics Provided: Continued safety and communication of his wants/needs. Time Speech Therapy Time In: 08:30 Speech Therapy Time Out: 09:00 Total Billed Time: 30 Billed Treatment Time 1, EMILY Rivero Feb 05, 2019 11:21
--- NOTE | 2019-02-05 11:54 | NUR ---
provided prayer and Communion.
--- NOTE | 2019-02-05 13:15 | Occupational Ther Daily Note ---
OT Current Status-Daily Note Subjective Pt alert, lying in bed. Pt agrees to therapy. No c/o pain. Mental Status/Objective Patient Orientation: Person, Place, Non-Verbal/Aphasic, Time, Situation Therapy Code Descriptions/Definitions Functional [place] Measure: 0=Not Assessed/NA 4=Minimal Assistance 1=Total Assistance 5=Supervision or Setup 2=Maximal Assistance 6=Modified [place] 3=Moderate Assistance 7=Complete [place] ADL-Treatment Pt declines shower. Given choices, pt able to pick own clothing. Pt transferred from bed to chair, SPT, with CGA. After set up, pt donned/doffed shirt by self. Pt required assist to don pants over feet then able to pull up LE's and hike over hips with CGA in standing. Pt then ambulated to restroom, transferred to toilet with CGA using FWW. Pt able to complete toileting with CGA for safety, inefficient with cleansing after BM assist only to thoroughly cleanse. Pt then sat at sink to complete own grooming. Therapy Code Descriptions/Definitions Functional [place] Measure: 0=Not Assessed/NA 4=Minimal Assistance 1=Total Assistance 5=Supervision or Setup 2=Maximal Assistance 6=Modified [place] 3=Moderate Assistance 7=Complete [place] Therapy Quality Codes: 6 Independent with activity with or without an assistive device 5 Patient requires set up or clean up by helper. Patient completes activity by themselves 4 Supervision or touching assist (CGA). [place] provide cues , steadying assist 3 The helper provides less than half the effort to complete the activity 2 The helper provides more than half the effort to complete the activity 1 Dependent. The helper does all the effort to complete an activity 7 Patient refused to complete or attempt activity 9 The patient did not perform the activity before the current illness or injury 88 Not attempted due to Medical conditions or safety concerns Eating (FIM): 5 Eating (QC): 5 Grooming (FIM): 6 Oral Hygiene (QC): 6 Upper Body (FIM): 5 Upper Body Dressing (QC): 5 Lower Body Dressing (FIM): 3 Lower Body Dressing (QC): 3 On/Off Footwear (QC): 2 Toileting (FIM): 4 Toileting Hygiene (QC): 3 Transfers (B, C, W/C) (FIM): 4 Toilet/Commode Transfer (FIM): 4 Toilet Transfer (QC): 4 Other Treatment Pt ambulated to therapy gym using FWW. Completed arm bike to increase strength and activity tolerance for daily functional tasks. 1 min rotation forwards/ backwards working gripping with R hand, 8 min rotation with R hand wrapped to work on B UE tasks, strength and AROM. After therapy, pt lying in bed with call light/phone in reach. All needs met in room. OT Short Term Goals Short Term Goals Time Frame: Feb 11, 2019 Eating(FIM): 4 Grooming(FIM): 44 Bathing(FIM): 3 Upper Body Dressing(FIM): 3 Lower Body Dressing(FIM): 3 Toileting(FIM): 4 Transfers (B,C,W/C) (FIM): 4 (met) Toilet/Commode Transfer(FIM): 4 Shower Transfer(FIM): 4 Additional Short Term Goals: 1-Demonstrate ADL Tasks, 2-Verbalize Understanding , 3-ImproveStrength/Gifty 1=Demonstrate adherence to instructed precautions during ADL tasks. 2=Patient will verbalize/demonstrate understanding of assistive devices/ modifications for ADL. 3=Patient will improve strength/tolerance for activity to enable patient to perform ADL's. OT Manager Plant Goals Manager Plant Goals Time Frame: February 25, 2019 Eating (FIM): 6 Eating (QC): 6 Groomin Oral Hygiene (QC): 6 Bathing(FIM): 5 Shower/Bathe Self (QC): 5 Upper Body Dressing(FIM): 5 Upper Body Dressing (QC): 5 Lower Body Dressing(FIM): 5 Lower Body Dressing (QC): 5 On/Off Footwear (QC): 5 Toileting(FIM): 6 Toileting Hygiene (QC): 6 Transfers (B,C,W/C) (FIM): 6 Toilet/Commode Transfer(FIM): 6 Toilet/Commode Transfer (QC): 6 Shower Transfer(FIM): 5 Additional Goals: 1-Demonstrate ADL Tasks, 2-Verbalize Understanding, 3- ImproveStrength/Gifty 1=Demonstrate adherence to instructed precautions during ADL tasks. 2=Patient will verbalize/demonstrate understanding of assistive devices/ modifications for ADL. 3=Patient will improve strength/tolerance for activity to enable patient to perform ADL's. OT Education/Plan Problem List/Assessment Assessment: Decreased UE Strength, Impaired Funct Balance, Impaired I ADL's, Impaired Self-Care Skills, Restricted Funct UE ROM pt continue to make progress toward all OT goals. pt would benefit from additional OT services to maximize rehab potential and to increase overall independence with ADLS/ functional transfers. Discharge Recommendations Plan/Recommendations: Continue POC Treatment Plan/Plan of Care Patient would benefit from OT for education, treatment and training to promote independence in ADL's, mobility, safety and/or upper extremity function for ADL' s. Plan of Care: ADL Retraining, Functional Mobility, Group Exercise/Act as Ind, UE Funct Exercise/Act Treatment Duration: February 25, 2019 Frequency: At least 5 of 7 days/Wk (IRF) Estimated Hrs Per Day: 1.5 hours per day Agreement: Yes Rehab Potential: Good Time/GCodes Start Time: 07:00 Stop Time: 08:00 Total Time Billed (hr/min): 60 Billed Treatment Time 1 visit-ADL 3 (50 min) EX 1 (10 min) SHASHI SIMS Feb 05, 2019 13:15
--- NOTE | 2019-02-05 13:27 | Occupational Ther Daily Note ---
OT Current Status-Daily Note Subjective Pt sleeping in bed, woke easily to name. Pt agrees to therapy. No c/o pain. Mental Status/Objective Patient Orientation: Person, Place, Non-Verbal/Aphasic, Time, Situation Therapy Code Descriptions/Definitions Functional [place] Measure: 0=Not Assessed/NA 4=Minimal Assistance 1=Total Assistance 5=Supervision or Setup 2=Maximal Assistance 6=Modified [place] 3=Moderate Assistance 7=Complete [place] ADL-Treatment Therapy Code Descriptions/Definitions Functional [place] Measure: 0=Not Assessed/NA 4=Minimal Assistance 1=Total Assistance 5=Supervision or Setup 2=Maximal Assistance 6=Modified [place] 3=Moderate Assistance 7=Complete [place] Therapy Quality Codes: 6 Independent with activity with or without an assistive device 5 Patient requires set up or clean up by helper. Patient completes activity by themselves 4 Supervision or touching assist (CGA). [place] provide cues , steadying assist 3 The helper provides less than half the effort to complete the activity 2 The helper provides more than half the effort to complete the activity 1 Dependent. The helper does all the effort to complete an activity 7 Patient refused to complete or attempt activity 9 The patient did not perform the activity before the current illness or injury 88 Not attempted due to Medical conditions or safety concerns Other Treatment Pt scooting up in bed with min A using bed rails. Supervision to go from supine to sitting using bed rails. Pt ambulated to therapy gym with cane, min A for safety. Pt complete fine motor tasks with R hand to increase pinch strength and dexterity. After therapy, pt lying in bed with call light/phone in reach. All needs met in room. OT Short Term Goals Short Term Goals Time Frame: Feb 11, 2019 Eating(FIM): 4 Grooming(FIM): 44 Bathing(FIM): 3 Upper Body Dressing(FIM): 3 Lower Body Dressing(FIM): 3 Toileting(FIM): 4 Transfers (B,C,W/C) (FIM): 4 (met) Toilet/Commode Transfer(FIM): 4 Shower Transfer(FIM): 4 Additional Short Term Goals: 1-Demonstrate ADL Tasks, 2-Verbalize Understanding , 3-ImproveStrength/Gifty 1=Demonstrate adherence to instructed precautions during ADL tasks. 2=Patient will verbalize/demonstrate understanding of assistive devices/ modifications for ADL. 3=Patient will improve strength/tolerance for activity to enable patient to perform ADL's. OT Fdc Goals Chief Librarian Branch Goals Time Frame: February 25, 2019 Eating (FIM): 6 Eating (QC): 6 Groomin Oral Hygiene (QC): 6 Bathing(FIM): 5 Shower/Bathe Self (QC): 5 Upper Body Dressing(FIM): 5 Upper Body Dressing (QC): 5 Lower Body Dressing(FIM): 5 Lower Body Dressing (QC): 5 On/Off Footwear (QC): 5 Toileting(FIM): 6 Toileting Hygiene (QC): 6 Transfers (B,C,W/C) (FIM): 6 Toilet/Commode Transfer(FIM): 6 Toilet/Commode Transfer (QC): 6 Shower Transfer(FIM): 5 Additional Goals: 1-Demonstrate ADL Tasks, 2-Verbalize Understanding, 3- ImproveStrength/Gifty 1=Demonstrate adherence to instructed precautions during ADL tasks. 2=Patient will verbalize/demonstrate understanding of assistive devices/ modifications for ADL. 3=Patient will improve strength/tolerance for activity to enable patient to perform ADL's. OT Education/Plan Problem List/Assessment pt continue to make progress toward all OT goals. pt would benefit from additional OT services to maximize rehab potential and to increase overall independence with ADLS/ functional transfers. Discharge Recommendations Plan/Recommendations: Continue POC Treatment Plan/Plan of Care Patient would benefit from OT for education, treatment and training to promote independence in ADL's, mobility, safety and/or upper extremity function for ADL' s. Plan of Care: ADL Retraining, Functional Mobility, Group Exercise/Act as Ind, UE Funct Exercise/Act Treatment Duration: February 25, 2019 Frequency: At least 5 of 7 days/Wk (IRF) Estimated Hrs Per Day: 1.5 hours per day Agreement: Yes Rehab Potential: Good Time/GCodes Start Time: 11:00 Stop Time: 11:30 Total Time Billed (hr/min): 30 Billed Treatment Time 1 visit-FA 1 (10 min) EX 1 (20 min) SHASHI SIMS Feb 05, 2019 13:27
[2019-02-05 17:50] VITALS: BP 143/70
[2019-02-05] MEDS: TAMSULOSIN 0.4 MG (FLOMAX) CAP PO SCH (18:36)
[2019-02-05] MEDS: LIDOCAINE PATCH REMOVAL TP SCH (20:57)
[2019-02-05] MEDS: ATORVASTATIN 80 MG (LIPITOR) TABLET PO SCH (20:57)
[2019-02-06] MEDS: BETHANECHOL 25 MG (URECHOLINE) TAB PO SCH ×4 (05:27→20:28)
[2019-02-06 05:37] VITALS: BP 112/68
[2019-02-06 08:13] VITALS: BP 114/60
[2019-02-06] MEDS: ENOXAPARIN 40 MG/0.4 ML (LOVENOX) SYR SC SCH (08:14)
[2019-02-06] MEDS: amLODIPine 5 MG (NORVASC) TAB PO SCH (08:14)
[2019-02-06] MEDS: SODIUM CHLORIDE 1 GM TAB (NON-FORMULARY) PO SCH ×3 (08:14→20:28)
[2019-02-06] MEDS: LIDOCAINE 4% (SALONPAS) PATCH TOP SCH (08:14)
[2019-02-06] MEDS: BISOPROLOL 5 MG TAB (ZEBETA) PO SCH (08:14)
[2019-02-06] MEDS: ASPIRIN 81 MG CHEW (CHILDREN'S ASA) PO SCH (08:14)
[2019-02-06] MEDS: SERTRALINE 100 MG (ZOLOFT) TAB PO SCH (08:14)
[2019-02-06] MEDS: CLOPIDOGREL 75 MG (PLAVIX) TABLET PO SCH (08:14)
[2019-02-06] MEDS: SENNA W/DOCUSATE (SENOKOT S) TABLET PO SCH ×2 (08:15→20:34)
[2019-02-06] MEDS: POLYETHYLENE GLYCOL 17 GM (MIRALAX) PACK PO SCH ×2 (08:15→20:34)
[2019-02-06] MEDS: DICLOFENAC 1% GEL 100 GM (VOLTAREN) TUBE TOP SCH ×2 (08:17→20:34)
[2019-02-06] MEDS: prednisoLONE 1% OPTH (PRED FORTE) 5 ML BTL OS SCH ×4 (08:18→20:27)
[2019-02-06] MEDS: SIMBRINZA PO SCH ×2 (08:19→20:28)
[2019-02-06] MEDS: EYE PO SCH ×2 (08:19→20:28)
--- NOTE | 2019-02-06 10:23 | Physical Therapy Daily Note ---
PT Daily Note-Current Subjective Patient in bed pre tx, agrees to PT, no complaints of pain. His AFO was causing pain this morning in right foot so it was not used during ambulation. Appearance Patient in bed post tx with nurse call, phone, tray, all needs met. Mental Status Patient Orientation: Person, Unable to Assess, Non-Verbal/Aphasic Transfers Therapy Code Descriptions/Definitions Functional [place] Measure: 0=Not Assessed/NA 4=Minimal Assistance 1=Total Assistance 5=Supervision or Setup 2=Maximal Assistance 6=Modified [place] 3=Moderate Assistance 7=Complete [place] Therapy Quality Codes: 6 Independent with activity with or without an assistive device 5 Patient requires set up or clean up by helper. Patient completes activity by themselves 4 Supervision or touching assist (CGA). [place] provide cues , steadying assist 3 The helper provides less than half the effort to complete the activity 2 The helper provides more than half the effort to complete the activity 1 Dependent. The helper does all the effort to complete an activity 7 Patient refused to complete or attempt activity 9 The patient did not perform the activity before the current illness or injury 88 Not attempted due to Medical conditions or safety concerns Transfers (B, C, W/C) (FIM): 5 Scootin Rollin Supine to/from Sit: 5 Sit to/from Stand: 5 Bed to/from Chair: 5 Gait Training Gait (FIM): 2 Distance: 100'x2 Gait Level of Assist: 4 Gait Persons Needed: 1 Gait Assistive Device: Cane Small Base Quad Patient ambulated with min assist for unsteadiness, no AFO, step-through and clearance was good at the beginning of ambulation but degrades during ambulation with fatigue. Exercises RLE LAQ for 5 min with 2# ankle weight Treatments bed mobility and transfers, ambulation, functional strengthening Assessment Current Status: Fair Progress improving balance and ambulation PT Short Term Goals Short Term Goals Time Frame: Feb 04, 2019 Transfers (B,C,W/C) (FIM): 4 (met) Gait (FIM): 1 (met) Gait Distance Comment: 20' Gait Level of Assist: 3 Gait Assistive Device: Walker Henry Wheelchair Distance: 80' PT Usp Goals Meat Hanger Goals PT Usp Goals Time Frame: Feb 18, 2019 Transfers (B,C,W/C) (FIM): 4 Sit to Lying (QC): 4 Lying-Sitting on Side/Bed(QC): 4 Sit to Stand (QC): 4 Rollin Roll Left to Right (QC): 4 Chair/Ghc-fa-Hkhlk Xfer(QC): 4 Car Transfer (QC): 4 Gait (FIM): 2 Distance: 50' Walk 10 feet (QC): 3 Walk 10ft-Uneven Surface(QC): 3 Walk 50ft with 2 Turns (QC): 3 Gait Level of Assist: 4 Gait Assistive Device: Cane Large Base Quad Wheelchair (FIM): 6 Distance: 150' Wheelchair Level of Assist: 6 Wheel 50 feet with 2 turns (QC: 6 Stairs (FIM): 1 # of Steps: 1 1 Step (curb) (QC): 3 Stairs Level Of Assist: 4 PT Plan Problem List Problem List: Activity Tolerance, Functional Strength, Safety, Balance, Gait, Transfer Treatment/Plan Treatment Plan: Continue Plan of Care Treatment Plan: Bed Mobility, Concurrent Therapy, Education, Functional Activity Gifty, Functional Strength, Group Therapy, Gait, Safety, Therapeutic Exercise, Transfers Treatment Duration: Feb 18, 2019 Frequency: At least 5 of 7 days/Wk (IRF) Estimated Hrs Per Day: 1.5 hours per day Patient and/or Family Agrees t: Yes Safety Risks/Education Patient Education: Gait Training, Transfer Techniques, Correct Positioning, Safety Issues Teaching Recipient: Patient Teaching Methods: Demonstration, Discussion Response to Teaching: Reinforcement Needed Time/GCodes Time In: 1005 Time Out: 1020 Total Billed Treatment Time: 15 Total Billed Treatment 1 visit FA 15' JAXON BRAUN PT Feb 06, 2019 10:23
--- NOTE | 2019-02-06 12:38 | PM&R Progress Note ---
Subjective HPI/CC On Admission Date Seen by Provider: Feb 06, 2019 Time Seen by Provider: 12:15 CC: Ischemic stroke HPI: This is a 63-year-old white male of Dr. Schultz who presented to via [facility] ER on 01/23/19 with abrupt onset of severe weakness on the right side underwent stroke workup and found to be a candidate for TPA then shipped to [facility] and subsequently underwent left carotid endarterectomy on 01/25/19 but still remains with right sided weakness with severe expressive aphasia. Reviewed the entire record at [facility] and reviewed his home medications and patient appears to be ready to start aggressive physical therapy in order regain function. His drove him from and reports that he did well on the trip. His [id number] is a nurse and she helped reviewed the discharge med list. He is currently on. Diet with nectar thickened liquids. CT scan via [facility] and [facility] showed a left ischemic process of the MCA distribution. During hospital course the he had no significant clinical decompensation. Patient requires inpatient rehabilitation with 24 hour physician supervision to monitor her labile blood pressure and monitor for any hemorrhagic residual from ischemic stroke that cannot be provided in any type of lower level of care. 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 Subjective/Events-last exam Pt talking more and overall dramatic improvement in expressive aphasia Norvasc of 5 mg is tolerated and BP well controlled BM's regular and holding Miralax and changed to prn Participating in therapy and likely will be able to return home with assistive devices and I updated his who came to visit him when I was leaving his room Continues to be a fall risk and will work on impulsivity Voiding well without catheter Appreciate Dr Brantley's expertise Review of Systems General: Fatigue Neurological: Weakness, Numbness, Incoordination, Confusion Objective Exam Vital Signs Vital Signs Date Time Temp Pulse Resp B/P (MAP) Pulse Ox O2 Delivery O2 Flow Rate FiO2 02/07/19 08:37 98.4 72 18 112/55 (74) 96 Room Air Capillary Refill : General Appearance: No Apparent Distress, WD/WN, Chronically ill HEENT: PERRL/EOMI, Pharynx Normal, Other (right facial droop) Neck: Full Range of Motion, Normal Inspection, Non Tender, Supple, Other ( incision left neck intact) Respiratory: Chest Non Tender, Lungs Clear, Normal Breath Sounds, No Accessory Muscle Use, No Respiratory Distress Cardiovascular: Regular Rate, Rhythm, No Edema, No Gallop, No JVD, No Murmur, Normal Peripheral Pulses Gastrointestinal: Normal Bowel Sounds, No Organomegaly, No Pulsatile Mass, Non Tender, Soft Back: Normal Inspection, No CVA Tenderness, No Vertebral Tenderness Extremity: Normal Capillary Refill, Normal Inspection, Non Tender, No Calf Tenderness, No Pedal Edema, Other (limited ROM right side and mild deficit left) Neurologic/Psychiatric: Alert, Normal Mood/Affect, Abnormal healthcare science specialist II-XII, Abnormal Gait, Aphasia (improved today 02/01/19), Facial Droop (right), Motor Weakness (right) Skin: Normal Color, Warm/Dry, Other (improved left CEA incision site) Lymphatic: No Adenopathy Results/Procedures Lab Patient resulted labs reviewed. Assessment/Plan Assessment and Plan Assess & Plan/Chief Complaint Assessment: (1) Ischemic stroke (2) S/P carotid endarterectomy 01/25/19 with no improvement in right sided weakness (3) PVD (peripheral vascular disease) (4) CAD (coronary artery disease) (5) Expressive aphasia- improved 02/02/19 (6) Right sided weakness (7) Anemia-iron def so starting iron 02/03/19 (8) Hypertension (9) S/P cataract extraction (10) Dysphagia (11) Hyperlipidemia (12) Constipation-resolved 01/29/19 after meds (13) Klinefelter syndrome (14) Received intravenous tissue plasminogen activator (tPA) in emergency department 01/23/19 at [facility] ER (15) Depression (16) Former smoker (17) Hyponatremia improved on salt tablets (18) DVT prophylaxis (19) Urinary retention-consulted Urology, appreciate recs (20) Lee catheter was in place now DC but back with urinary retention s/p cysto so placed on Urecholine with Flomax and that is working well Plan: Consult Dr Brantley for Urology is appreciated and urinary retention is being managed and now no catheter and voiding well DVT PPx with Heparin but then DC due to oozing so changed to Lovenox once daily Monitor for pain Left cataract eye care with eye drops until completed visiting frequently and that is helping morale Improving with intensive therapies Reviewed PT/OT speech notes Add Iron therapy every other day to prevent constipation and he received his first dose today. 02/04/19 May be able to DC salt tablets in the future (1) Ischemic stroke (2) Anemia Assessment & Plan: Start iron therapy (3) Expressive aphasia (4) CAD (coronary artery disease) (5) Dysphagia (6) Hyperlipidemia (7) PVD (peripheral vascular disease) (8) Hypertension (9) Right sided weakness (10) Klinefelter syndrome (11) Constipation (12) Depression (13) Hyponatremia (14) DVT prophylaxis (15) Received intravenous tissue plasminogen activator (tPA) in emergency department (16) Urinary retention (17) Lee catheter in place (18) S/P carotid endarterectomy (19) S/P cataract extraction (20) Former smoker Clinical Quality Measures DVT/VTE Risk/Contraindication: Risk Factor Score Per Nursin RFS Level Per Nursing on Admit: 4+=Very High BOOGIE WHITTEN DO Feb 06, 2019 12:38
--- NOTE | 2019-02-06 12:49 | NUR ---
Post void bladder scan showing 77mls. Will continue to monitor.
[2019-02-06 16:21] VITALS: BP 135/73
[2019-02-06] MEDS: TAMSULOSIN 0.4 MG (FLOMAX) CAP PO SCH (17:06)
[2019-02-06] MEDS: ATORVASTATIN 80 MG (LIPITOR) TABLET PO SCH (20:28)
[2019-02-06] MEDS: LIDOCAINE PATCH REMOVAL TP SCH (20:34)
[2019-02-07] MEDS: BETHANECHOL 25 MG (URECHOLINE) TAB PO SCH ×4 (06:36→20:23)
[2019-02-07] MEDS: FERROUS SULF 325 MG (IRON) TAB PO SCH (06:36)
[2019-02-07 06:45] VITALS: BP 134/73
[2019-02-07 08:37] VITALS: BP 112/55
[2019-02-07] MEDS: CLOPIDOGREL 75 MG (PLAVIX) TABLET PO SCH (08:43)
[2019-02-07] MEDS: amLODIPine 5 MG (NORVASC) TAB PO SCH (08:43)
[2019-02-07] MEDS: POLYETHYLENE GLYCOL 17 GM (MIRALAX) PACK PO SCH ×2 (08:43→19:30)
[2019-02-07] MEDS: BISOPROLOL 5 MG TAB (ZEBETA) PO SCH (08:43)
[2019-02-07] MEDS: SERTRALINE 100 MG (ZOLOFT) TAB PO SCH (08:43)
[2019-02-07] MEDS: ASPIRIN 81 MG CHEW (CHILDREN'S ASA) PO SCH (08:43)
[2019-02-07] MEDS: SENNA W/DOCUSATE (SENOKOT S) TABLET PO SCH ×2 (08:43→20:23)
[2019-02-07] MEDS: SODIUM CHLORIDE 1 GM TAB (NON-FORMULARY) PO SCH ×3 (08:44→20:22)
[2019-02-07] MEDS: ENOXAPARIN 40 MG/0.4 ML (LOVENOX) SYR SC SCH (08:45)
[2019-02-07] MEDS: SIMBRINZA PO SCH ×2 (08:47→20:22)
[2019-02-07] MEDS: EYE PO SCH ×2 (08:47→20:22)
[2019-02-07] MEDS: DICLOFENAC 1% GEL 100 GM (VOLTAREN) TUBE TOP SCH ×2 (08:47→19:30)
[2019-02-07] MEDS: LIDOCAINE 4% (SALONPAS) PATCH TOP SCH (08:48)
[2019-02-07] MEDS: prednisoLONE 1% OPTH (PRED FORTE) 5 ML BTL OS SCH ×4 (08:48→20:22)
--- NOTE | 2019-02-07 11:40 | PM&R Progress Note ---
Subjective HPI/CC On Admission Date Seen by Provider: Feb 07, 2019 Time Seen by Provider: 12:15 CC: Ischemic stroke HPI: This is a 63-year-old white male of Dr. Schultz who presented to via [facility] ER on 01/23/19 with abrupt onset of severe weakness on the right side underwent stroke workup and found to be a candidate for TPA then shipped to [facility] and subsequently underwent left carotid endarterectomy on 01/25/19 but still remains with right sided weakness with severe expressive aphasia. Reviewed the entire record at [facility] and reviewed his home medications and patient appears to be ready to start aggressive physical therapy in order regain function. His drove him from and reports that he did well on the trip. His [id number]-[id number] is a nurse and she helped reviewed the discharge med list. He is currently on. Diet with nectar thickened liquids. CT scan via [facility] and [facility] showed a left ischemic process of the MCA distribution. During hospital course the he had no significant clinical decompensation. Patient requires inpatient rehabilitation with 24 hour physician supervision to monitor her labile blood pressure and monitor for any hemorrhagic residual from ischemic stroke that cannot be provided in any type of lower level of care. 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 Subjective/Events-last exam Pt talking more and overall dramatic improvement in expressive aphasia and actually able to carry on a conversation well today Norvasc of 5 mg is tolerated and BP well controlled at bedside BM's regular and no laxatives needed Ready to work with PT tomorrow Continues to be a fall risk and will work on impulsivity in addition to his balance Voiding well without catheter and only subtle incontinence Appreciate Dr Brantley's expertise and minimal PVR Review of Systems General: Fatigue Neurological: Weakness, Numbness, Incoordination, Change in speech Objective Exam Vital Signs Vital Signs Date Time Temp Pulse Resp B/P (MAP) Pulse Ox O2 Delivery O2 Flow Rate FiO2 02/07/19 15:22 98.4 68 16 123/66 (85) 98 Room Air Capillary Refill : General Appearance: No Apparent Distress, WD/WN, Chronically ill HEENT: PERRL/EOMI, Pharynx Normal, Other (right facial droop) Neck: Full Range of Motion, Normal Inspection, Non Tender, Supple, Other ( incision left neck intact) Respiratory: Chest Non Tender, Lungs Clear, Normal Breath Sounds, No Accessory Muscle Use, No Respiratory Distress Cardiovascular: Regular Rate, Rhythm, No Edema, No Gallop, No JVD, No Murmur, Normal Peripheral Pulses Gastrointestinal: Normal Bowel Sounds, No Organomegaly, No Pulsatile Mass, Non Tender, Soft Back: Normal Inspection, No CVA Tenderness, No Vertebral Tenderness Extremity: Normal Capillary Refill, Normal Inspection, Non Tender, No Calf Tenderness, No Pedal Edema, Other (limited ROM right side and mild deficit left) Neurologic/Psychiatric: Alert, Normal Mood/Affect, Abnormal jaw skinner II-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 Assessment/Plan Assessment and Plan Assess & Plan/Chief Complaint Assessment: (1) Ischemic stroke 01/23/19 (2) S/P carotid endarterectomy 01/25/19 with no improvement in right sided weakness (3) PVD (peripheral vascular disease) (4) CAD (coronary artery disease) (5) Expressive aphasia- improved 02/02/19 (6) Right sided weakness (7) Anemia-iron def so starting iron 02/03/19 (8) Hypertension (9) S/P cataract extraction (10) Dysphagia (11) Hyperlipidemia (12) Constipation-resolved 01/29/19 after meds (13) Klinefelter syndrome (14) Received intravenous tissue plasminogen activator (tPA) in emergency department 01/23/19 at [facility] ER (15) Depression (16) Former smoker (17) Hyponatremia improved on salt tablets (18) DVT prophylaxis (19) Urinary retention-consulted Urology, appreciate recs (20) Lee catheter was in place now DC but back with urinary retention s/p cysto so placed on Urecholine with Flomax and that is working well Plan: Consult Dr Brantley for Urology is appreciated and urinary retention is being managed and now no catheter and voiding well DVT PPx with Heparin but then DC due to oozing so changed to Lovenox once daily Monitor for pain Left cataract eye care with eye drops until completed visiting frequently and that is helping morale Improving with intensive therapies Reviewed PT/OT speech notes Add Iron therapy every other day to prevent constipation and he received his first dose today. 02/04/19 May be able to DC salt tablets in the future (1) Ischemic stroke (2) Anemia Assessment & Plan: Start iron therapy (3) Expressive aphasia (4) CAD (coronary artery disease) (5) Dysphagia (6) Hyperlipidemia (7) PVD (peripheral vascular disease) (8) Hypertension (9) Right sided weakness (10) Klinefelter syndrome (11) Constipation (12) Depression (13) Hyponatremia (14) DVT prophylaxis (15) Received intravenous tissue plasminogen activator (tPA) in emergency department (16) Urinary retention (17) Lee catheter in place (18) S/P carotid endarterectomy (19) S/P cataract extraction (20) Former smoker Clinical Quality Measures DVT/VTE Risk/Contraindication: Risk Factor Score Per Nursin RFS Level Per Nursing on Admit: 4+=Very High BOOGIE WHITTEN DO Feb 07, 2019 11:40
--- NOTE | 2019-02-07 13:11 | NUR ---
Dr. Jalloh to floor. Informed of increased loss of balance last HS and this AM. Also, urine is cloudy. No new orders rec'd.
[2019-02-07 15:22] VITALS: BP 123/66
[2019-02-07] MEDS: TAMSULOSIN 0.4 MG (FLOMAX) CAP PO SCH (16:52)
--- NOTE | 2019-02-07 17:45 | NUR ---
Post void bladder scan showing 42mls. Will continue to monitor.
[2019-02-07] MEDS: ATORVASTATIN 80 MG (LIPITOR) TABLET PO SCH (20:23)
[2019-02-07] MEDS: LIDOCAINE PATCH REMOVAL TP SCH (20:23)
[2019-02-08] MEDS: BETHANECHOL 25 MG (URECHOLINE) TAB PO SCH ×4 (05:33→20:29)
[2019-02-08 05:39] VITALS: BP 123/69
[2019-02-08] MEDS: POLYETHYLENE GLYCOL 17 GM (MIRALAX) PACK PO SCH ×2 (07:44→20:29)
[2019-02-08] MEDS: SENNA W/DOCUSATE (SENOKOT S) TABLET PO SCH ×2 (07:45→20:29)
--- NOTE | 2019-02-08 08:45 | PM&R Progress Note ---
Subjective HPI/CC On Admission Date Seen by Provider: Feb 08, 2019 Time Seen by Provider: 08:30 CC: Ischemic stroke HPI: This is a 63-year-old white male of Dr. Schultz who presented to via [facility] ER on 01/23/19 with abrupt onset of severe weakness on the right side underwent stroke workup and found to be a candidate for TPA then shipped to [facility] and subsequently underwent left carotid endarterectomy on 01/25/19 but still remains with right sided weakness with severe expressive aphasia. Reviewed the entire record at [facility] and reviewed his home medications and patient appears to be ready to start aggressive physical therapy in order regain function. His drove him from and reports that he did well on the trip. His [id number] is a nurse and she helped reviewed the discharge med list. He is currently on. Diet with nectar thickened liquids. CT scan via [facility] and [facility] showed a left ischemic process of the MCA distribution. During hospital course the he had no significant clinical decompensation. Patient requires inpatient rehabilitation with 24 hour physician supervision to monitor her labile blood pressure and monitor for any hemorrhagic residual from ischemic stroke that cannot be provided in any type of lower level of care. 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 Subjective/Events-last exam Urinating well. Denies any pain. Up in a chair this morning already. Ready to participate in therapy. Talking better and better everyday. Bowels are moving regularly. BP remains stable. Overall having no issues with Lovenox prophylaxis for DVT. Checked meds and labs. Reviewed therapy notes. Barrier to going home will include being able to ambulate and complete his own ADLs. Review of Systems Neurological: Weakness, Numbness, Incoordination, Confusion Objective Exam Vital Signs Vital Signs Date Time Temp Pulse Resp B/P (MAP) Pulse Ox O2 Delivery O2 Flow Rate FiO2 02/08/19 09:00 Room Air 02/08/19 05:39 98.6 71 18 123/69 (87) 95 Capillary Refill : General Appearance: No Apparent Distress, WD/WN, Chronically ill HEENT: PERRL/EOMI, Pharynx Normal, Other (right facial droop) Neck: Full Range of Motion, Normal Inspection, Non Tender, Supple, Other ( incision left neck intact) Respiratory: Chest Non Tender, Lungs Clear, Normal Breath Sounds, No Accessory Muscle Use, No Respiratory Distress Cardiovascular: Regular Rate, Rhythm, No Edema, No Gallop, No JVD, No Murmur, Normal Peripheral Pulses Gastrointestinal: Normal Bowel Sounds, No Organomegaly, No Pulsatile Mass, Non Tender, Soft Back: Normal Inspection, No CVA Tenderness, No Vertebral Tenderness Extremity: Normal Capillary Refill, Normal Inspection, Non Tender, No Calf Tenderness, No Pedal Edema, Other (limited ROM right side and mild deficit left) Neurologic/Psychiatric: Alert, Normal Mood/Affect, Abnormal medical coding auditor II-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 Assessment/Plan Assessment and Plan Assess & Plan/Chief Complaint Assessment: (1) Ischemic stroke 01/23/19 (2) S/P carotid endarterectomy 01/25/19 with no improvement in right sided weakness (3) PVD (peripheral vascular disease) (4) CAD (coronary artery disease) (5) Expressive aphasia- improved 02/02/19 (6) Right sided weakness (7) Anemia-iron def so starting iron 02/03/19 (8) Hypertension (9) S/P cataract extraction (10) Dysphagia (11) Hyperlipidemia (12) Constipation-resolved 01/29/19 after meds (13) Klinefelter syndrome (14) Received intravenous tissue plasminogen activator (tPA) in emergency department 01/23/19 at [facility] ER (15) Depression (16) Former smoker (17) Hyponatremia improved on salt tablets (18) DVT prophylaxis (19) Urinary retention-consulted Urology, appreciate recs (20) Lee catheter was in place now DC but back with urinary retention s/p cysto so placed on Urecholine with Flomax and DC Lee and that is working well and voiding normally Plan: Consult Dr Brantley for Urology is appreciated and urinary retention is being managed and now no catheter and voiding well DVT PPx with Heparin but then DC due to oozing so changed to Lovenox once daily Monitor for pain Left cataract eye care with eye drops until completed visiting frequently and that is helping morale Improving with intensive therapies Reviewed PT/OT speech notes Add Iron therapy every other day to prevent constipation and he received his first dose today. 02/04/19 May be able to DC salt tablets in the future (1) Ischemic stroke (2) Anemia Assessment & Plan: Start iron therapy (3) Expressive aphasia (4) CAD (coronary artery disease) (5) Dysphagia (6) Hyperlipidemia (7) PVD (peripheral vascular disease) (8) Hypertension (9) Right sided weakness (10) Klinefelter syndrome (11) Constipation (12) Depression (13) Hyponatremia (14) DVT prophylaxis (15) Received intravenous tissue plasminogen activator (tPA) in emergency department (16) Urinary retention (17) Lee catheter in place (18) S/P carotid endarterectomy (19) S/P cataract extraction (20) Former smoker Clinical Quality Measures DVT/VTE Risk/Contraindication: Risk Factor Score Per Nursin RFS Level Per Nursing on Admit: 4+=Very High BOOGIE WHITTEN DO Feb 08, 2019 08:45
[2019-02-08] MEDS: ENOXAPARIN 40 MG/0.4 ML (LOVENOX) SYR SC SCH (09:06)
[2019-02-08] MEDS: BISOPROLOL 5 MG TAB (ZEBETA) PO SCH (09:07)
[2019-02-08] MEDS: ASPIRIN 81 MG CHEW (CHILDREN'S ASA) PO SCH (09:07)
[2019-02-08] MEDS: SIMBRINZA PO SCH ×2 (09:07→20:28)
[2019-02-08] MEDS: amLODIPine 5 MG (NORVASC) TAB PO SCH (09:07)
[2019-02-08] MEDS: SERTRALINE 100 MG (ZOLOFT) TAB PO SCH (09:07)
[2019-02-08] MEDS: EYE PO SCH ×2 (09:07→20:28)
[2019-02-08] MEDS: CLOPIDOGREL 75 MG (PLAVIX) TABLET PO SCH (09:07)
[2019-02-08] MEDS: LIDOCAINE 4% (SALONPAS) PATCH TOP SCH (09:07)
[2019-02-08] MEDS: prednisoLONE 1% OPTH (PRED FORTE) 5 ML BTL OS SCH ×4 (09:07→20:28)
[2019-02-08] MEDS: SODIUM CHLORIDE 1 GM TAB (NON-FORMULARY) PO SCH ×3 (09:08→20:28)
[2019-02-08] MEDS: DICLOFENAC 1% GEL 100 GM (VOLTAREN) TUBE TOP SCH ×2 (09:08→20:30)
--- NOTE | 2019-02-08 10:28 | Progress Note-Urology ---
Progress Note-Urology Progress Notes/Assess & Plan Progress/Assessment & Plan VOIDING WELL. EMPTIES. TOLERATED MEDICINES WELL Final Diagnosis URINE RETENTION, RESOLVED CORNELIO MCCABE MD Feb 08, 2019 10:28
--- NOTE | 2019-02-08 10:41 | Speech Therapy Daily Note ---
Speech Daily Progress Note Subjective Date Seen by Provider: Feb 08, 2019 Time Seen by Provider: 00:30 The patient was sitting up in his chair watching tv when I arrived. He was pleasant and participated well. Objective The patient completed some sentence completion word finding exercises with 50% accuracy given mod verbal cues and/or repetitions. Assessment Assessment Current Status: Fair Progress Treatment Plan Continue Plan of Care Communication Comprehension: 5 Expression: 1 Social Cognition Social Interaction: 5 Problem Solvin Memory: 5 Speech Short Term Goals Short Term Goals Short Term Goals 1) The patient will demonstrate orientation to person, place time and situation with 75% accuracy provided with stimulation and choices. 2) The patient will demonstrate correct naming of ten functional simple items during therapy session. 3) The patient will vollow one-step verbal commands with mod verbal/visual cues with 80% accuracy. 4) The patient will tolerate least restrictive diet level without signs/ symptoms of aspiration. 5) The patient will utilize compensatory strategies as trained for safe oral intake at 90% given minimal cues. Speech [facility] Goals Estimator Paperboard Boxes Goals 1) Patient will communicate basic wants and needs with 2-3 word phrases during therapy sessions. 2) Patient will maintain adequate nutrition/hydration via safe effective swallow function. Speech-Plan Patient/Family Goals Patient/Family Goals: The patient plans to return home where he lives with his post rehab. Treatment Plan Speech Therapy Treatment Plan: Continue Plan of Care The patient continues to progress with spontaneous speech production. Treatment Duration: Feb 12, 2019 Frequency: 5 times per week Estimated Hrs Per Day: .5 hour per day Rehab Potential: Good Barriers to Learning: New onset CVA with moderate expressive aphasia. Pt/Family Agrees to Plan: Yes Safety Risks/Education Teaching Recipient: Patient Teaching Methods: Discussion Response to Teaching: Verbalize Understanding Education Topics Provided: Utilization of compensatory strategies for expressing his wants/needs. Time Speech Therapy Time In: 08:30 Speech Therapy Time Out: 09:00 Total Billed Time: 30 Billed Treatment Time [address] Feb 08, 2019 10:41
--- NOTE | 2019-02-08 11:46 | NUR ---
provided prayer and Communion.
--- NOTE | 2019-02-08 12:31 | Physical Therapy Daily Note ---
PT Daily Note-Current Subjective Pt reports he is doing ok today, not very verbal. Requesting to walk with quad cane today instead of henry cane Pain Numeric Pain Scale: 0-No Pain Appearance Pt in bathroom upon arrival. At end of session, pt sitting up in recliner with LE's elevated, call light, phone and bedside table within reach Mental Status Patient Orientation: Person Transfers Therapy Code Descriptions/Definitions Functional [place] Measure: 0=Not Assessed/NA 4=Minimal Assistance 1=Total Assistance 5=Supervision or Setup 2=Maximal Assistance 6=Modified [place] 3=Moderate Assistance 7=Complete [place] Therapy Quality Codes: 6 Independent with activity with or without an assistive device 5 Patient requires set up or clean up by helper. Patient completes activity by themselves 4 Supervision or touching assist (CGA). [place] provide cues , steadying assist 3 The helper provides less than half the effort to complete the activity 2 The helper provides more than half the effort to complete the activity 1 Dependent. The helper does all the effort to complete an activity 7 Patient refused to complete or attempt activity 9 The patient did not perform the activity before the current illness or injury 88 Not attempted due to Medical conditions or safety concerns Transfers (B, C, W/C) (FIM): 5 Sit to/from Stand: 5 Pt demonstrating good safe technique with transfers, but requiring SBA for safety due to slight unsteadiness, no LOB Gait Training Does the Patient Walk?: Yes Gait (FIM): 5 Distance (FIM): 3=150 ft Distance: 300'x2, 150' x2 Gait Level of Assist: 5 Gait Persons Needed: 1 Gait Assistive Device: Cane Small Base Quad decreased heel strike, toe off, step length and height, able to correct slightly with instruction, decreased gait quality with fatigue toward end of gait distances, x4 episodes unsteadiness, but without LOB Exercises Standing: Marching, Mini squats, Retro gait, Sit to Stand, Stepping over objects, Unilateral stance (heel tapping onto air cushion) Standing Reps: 10 (each LE) Pt performing most ex's with unilat UE support, attempting without UE support NuStep Minutes: 15 NuStep Workload: 5 (BLE's and BUE's) Treatments transfer, gait, strengthening, ROM, balance, activity tolerance, functional mobility, safety, fall prevention/recovery Assessment Current Status: Good Progress Noted improvement in some control of LE from last weeks session with this UTILIZATION MANAGER PT Short Term Goals Short Term Goals Time Frame: Feb 04, 2019 Transfers (B,C,W/C) (FIM): 4 (met) Gait (FIM): 1 (met) Gait Distance Comment: 20' Gait Level of Assist: 3 Gait Assistive Device: Walker Henry Wheelchair Distance: 80' PT Steel Welder Goals Steel Welder Goals PT Halfway Goals Time Frame: Feb 18, 2019 Transfers (B,C,W/C) (FIM): 4 Sit to Lying (QC): 4 Lying-Sitting on Side/Bed(QC): 4 Sit to Stand (QC): 4 Rollin Roll Left to Right (QC): 4 Chair/Dzz-yq-Ribol Xfer(QC): 4 Car Transfer (QC): 4 Gait (FIM): 2 Distance: 50' Walk 10 feet (QC): 3 Walk 10ft-Uneven Surface(QC): 3 Walk 50ft with 2 Turns (QC): 3 Gait Level of Assist: 4 Gait Assistive Device: Cane Large Base Quad Wheelchair (FIM): 6 Distance: 150' Wheelchair Level of Assist: 6 Wheel 50 feet with 2 turns (QC: 6 Stairs (FIM): 1 # of Steps: 1 1 Step (curb) (QC): 3 Stairs Level Of Assist: 4 PT Plan Treatment/Plan Treatment Plan: Continue Plan of Care Treatment Plan: Bed Mobility, Concurrent Therapy, Education, Functional Activity Gifty, Functional Strength, Group Therapy, Gait, Safety, Therapeutic Exercise, Transfers Treatment Duration: Feb 18, 2019 Frequency: At least 5 of 7 days/Wk (IRF) Estimated Hrs Per Day: 1.5 hours per day Patient and/or Family Agrees t: Yes Safety Risks/Education Patient Education: Gait Training, Transfer Techniques, Safety Issues Teaching Recipient: Patient, Family Teaching Methods: Demonstration, Discussion Response to Teaching: Verbalize Understanding, Return Demonstration, Reinforcement Needed Time/GCodes Time In: 900 Time Out: 1000 Total Billed Treatment Time: 60 Total Billed Treatment 1 visit, GT x2, FA x1, EX x1 CHENTE NAJERA UTILIZATION MANAGER Feb 08, 2019 12:31
--- NOTE | 2019-02-08 13:22 | Occupational Ther Daily Note ---
OT Current Status-Daily Note Subjective No pain reported. Appearance Pt. is up in chair. Due to aphasia, it is difficult to ascertain exactly what he is saying. However, pt. does indicate that he does not want a shower. Pt. already dressed as he has had PT. Mental Status/Objective Patient Orientation: Person, Place Therapy Code Descriptions/Definitions Functional [place] Measure: 0=Not Assessed/NA 4=Minimal Assistance 1=Total Assistance 5=Supervision or Setup 2=Maximal Assistance 6=Modified [place] 3=Moderate Assistance 7=Complete [place] ADL-Treatment Therapy Code Descriptions/Definitions Functional [place] Measure: 0=Not Assessed/NA 4=Minimal Assistance 1=Total Assistance 5=Supervision or Setup 2=Maximal Assistance 6=Modified [place] 3=Moderate Assistance 7=Complete [place] Therapy Quality Codes: 6 Independent with activity with or without an assistive device 5 Patient requires set up or clean up by helper. Patient completes activity by themselves 4 Supervision or touching assist (CGA). [place] provide cues , steadying assist 3 The helper provides less than half the effort to complete the activity 2 The helper provides more than half the effort to complete the activity 1 Dependent. The helper does all the effort to complete an activity 7 Patient refused to complete or attempt activity 9 The patient did not perform the activity before the current illness or injury 88 Not attempted due to Medical conditions or safety concerns Lower Body Dressing (FIM): 3 (Pt. is able to doff/don slipper socks. Unable to don his own AFO and tennis shoes.) Lower Body Dressing (QC): 3 On/Off Footwear (QC): 3 Transfers (B, C, W/C) (FIM): 3 (Mod assist to ambulate with quad cane from room to therapy gym. OT provided hand held assist on right side.) Pt. tolerated e-stim to right UE. Tolerated 8 minutes on right wrist extensors. Tolerated approximately 5 zahida-amps with good movement. Pt. then tolerated e-stim to right hand for finger flexion, x 10 minutes, x 4 zahida- amps. Tolerated treatment well. OT then provided PROM to right UE in all planes. No tightness or inappropriate tone noted. Pt. does have active movement in right UE. Pt. attempted armbike without romeo wrap, but unable to hold onto it. OT provided romeo wrap to right UE to hold arm in place. Pt. tolerated 10 minutes on armbike for increased endurance. Tolerated this well. Pt. attempted nut/bolt activity for fine motor strengthening and coordination. Pt. had difficulty with this. Had difficulty raising right shoulder past 90 degrees to reach bolt. Poor fine motor strength noted with unfastening bolt. Pt. frustrated. Encouraged that this will take time. Pt. doing well overall. Ambulated back to room with all needs met and chair alarm set. Education OT Patient Education: Correct positioning, Exercise program, Modified ADL techniques, Progress toward Goal/Update tx plan, Purpose of tx/functional activities, Reviewed precautions, Rehab process, Transfer techniques Teaching Recipient: Patient Teaching Methods: Demonstration, Discussion Response to Teaching: Verbalize Understanding, Return Demonstration OT Short Term Goals Short Term Goals Time Frame: Feb 11, 2019 Eating(FIM): 4 Grooming(FIM): 44 Bathing(FIM): 3 Upper Body Dressing(FIM): 3 Lower Body Dressing(FIM): 3 Toileting(FIM): 4 Transfers (B,C,W/C) (FIM): 4 (met) Toilet/Commode Transfer(FIM): 4 Shower Transfer(FIM): 4 Additional Short Term Goals: 1-Demonstrate ADL Tasks, 2-Verbalize Understanding , 3-ImproveStrength/Gifty 1=Demonstrate adherence to instructed precautions during ADL tasks. 2=Patient will verbalize/demonstrate understanding of assistive devices/ modifications for ADL. 3=Patient will improve strength/tolerance for activity to enable patient to perform ADL's. OT [facility] Goals Finish Mender Goals Time Frame: February 25, 2019 Eating (FIM): 6 Eating (QC): 6 Groomin Oral Hygiene (QC): 6 Bathing(FIM): 5 Shower/Bathe Self (QC): 5 Upper Body Dressing(FIM): 5 Upper Body Dressing (QC): 5 Lower Body Dressing(FIM): 5 Lower Body Dressing (QC): 5 On/Off Footwear (QC): 5 Toileting(FIM): 6 Toileting Hygiene (QC): 6 Transfers (B,C,W/C) (FIM): 6 Toilet/Commode Transfer(FIM): 6 Toilet/Commode Transfer (QC): 6 Shower Transfer(FIM): 5 Additional Goals: 1-Demonstrate ADL Tasks, 2-Verbalize Understanding, 3- ImproveStrength/Gifty 1=Demonstrate adherence to instructed precautions during ADL tasks. 2=Patient will verbalize/demonstrate understanding of assistive devices/ modifications for ADL. 3=Patient will improve strength/tolerance for activity to enable patient to perform ADL's. OT Education/Plan Problem List/Assessment Assessment: Decreased Activ Tolerance, Decreased UE Strength, Dependent Transfers, Impaired Coordination, Impaired Funct Balance, Impaired I ADL's, Impaired Self-Care Skills, Restricted Funct UE ROM pt continue to make progress toward all OT goals. pt would benefit from additional OT services to maximize rehab potential and to increase overall independence with ADLS/ functional transfers. Discharge Recommendations Plan/Recommendations: Continue POC Therapy D/C Recommendations: Home w/ Family Support, Occupational Therapy Home Care Treatment Plan/Plan of Care Treatment,Training & Education: Yes Patient would benefit from OT for education, treatment and training to promote independence in ADL's, mobility, safety and/or upper extremity function for ADL' s. Plan of Care: ADL Retraining, Functional Mobility, Group Exercise/Act as Ind, UE Funct Exercise/Act Treatment Duration: February 25, 2019 Frequency: At least 5 of 7 days/Wk (IRF) Estimated Hrs Per Day: 1.5 hours per day Agreement: Yes Rehab Potential: Good Time/GCodes Start Time: 10:10 Stop Time: 11:10 Total Time Billed (hr/min): 60 Billed Treatment Time 1, Ex x 30minutes, NM x 15minutes, FA x 15minutes PAULETTE HALL OT Feb 08, 2019 13:22
--- NOTE | 2019-02-08 14:36 | Therapy Group Daily Note ---
Therapy Daily Group Note Patient Education Topic Other List Below (ARU description/expectations) Exercises LE Seated Exercise, UE Exercise Session Ratio (pt:therapist): 3:1 Goal of Session: Education on ARU Expectations, UE/LE Strengthing Goal Met for this Session: Yes Pt Benefit of Group: Contributions to Others, Recognition of Peers, Socialization Pt jumped in and assisted another pt with exercise. Other/Notes Pt ambulated to OT/PT group in [facility] area. Group consisted of introductions (name, place living, first job), socialization, ARU expectations/ description, UE/LE seated exercises and memory game. Pt able to introduce self with one-two word answers then actively listened to peers. Pt acknowledged understanding of ARU by nodding head in affirmative. Pt able to complete UE/LE seated exercises without difficulty. Using light wt ball, pt completed B LE exercise then assisted peer in position ball correctly. After therapy, pt lying in bed with call light/phone in reach. All needs met in room. Start Time: 13:00 Stop Time: 14:10 Total Billed Treatment Time: 70 Total Billed Treatment 1-SHASHI JACKMAN Feb 08, 2019 14:36
--- NOTE | 2019-02-08 15:21 | NUR ---
BODY MAN received confirmation from patient's insurance provider for continued stay approval with updates due on 419.
[2019-02-08] MEDS: TAMSULOSIN 0.4 MG (FLOMAX) CAP PO SCH (16:45)
[2019-02-08 18:00] VITALS: BP 142/70
[2019-02-08] MEDS: ATORVASTATIN 80 MG (LIPITOR) TABLET PO SCH (20:29)
[2019-02-08] MEDS: LIDOCAINE PATCH REMOVAL TP SCH (20:34)
[2019-02-09 06:21] VITALS: BP 144/74
[2019-02-09] MEDS: FERROUS SULF 325 MG (IRON) TAB PO SCH (06:22)
[2019-02-09] MEDS: BETHANECHOL 25 MG (URECHOLINE) TAB PO SCH ×4 (06:22→21:18)
[2019-02-09 08:00] VITALS: BP 107/57
--- NOTE | 2019-02-09 08:00 | NUR ---
DENIES PAIN AND STATES NO LONGER NEEDS VOLTAREN GEL OR LIDOCAINE PATCH. CONTINUES TO SPEAK A FEW MORE WORDS. DENIES ANY DIFFICULTY IN VOIDING.
[2019-02-09] MEDS: CLOPIDOGREL 75 MG (PLAVIX) TABLET PO SCH (08:14)
[2019-02-09] MEDS: SERTRALINE 100 MG (ZOLOFT) TAB PO SCH (08:14)
[2019-02-09] MEDS: BISOPROLOL 5 MG TAB (ZEBETA) PO SCH (08:14)
[2019-02-09] MEDS: amLODIPine 5 MG (NORVASC) TAB PO SCH (08:15)
[2019-02-09] MEDS: ASPIRIN 81 MG CHEW (CHILDREN'S ASA) PO SCH (08:15)
[2019-02-09] MEDS: prednisoLONE 1% OPTH (PRED FORTE) 5 ML BTL OS SCH ×4 (08:17→21:19)
[2019-02-09] MEDS: SIMBRINZA PO SCH ×2 (08:18→21:19)
[2019-02-09] MEDS: EYE PO SCH ×2 (08:18→21:19)
[2019-02-09] MEDS: LIDOCAINE 4% (SALONPAS) PATCH TOP SCH (08:20)
[2019-02-09] MEDS: POLYETHYLENE GLYCOL 17 GM (MIRALAX) PACK PO SCH ×2 (08:21→21:21)
[2019-02-09] MEDS: SENNA W/DOCUSATE (SENOKOT S) TABLET PO SCH ×2 (08:21→21:18)
[2019-02-09] MEDS: ENOXAPARIN 40 MG/0.4 ML (LOVENOX) SYR SC SCH (08:22)
[2019-02-09] MEDS: SODIUM CHLORIDE 1 GM TAB (NON-FORMULARY) PO SCH ×3 (08:29→21:18)
[2019-02-09] MEDS: DICLOFENAC 1% GEL 100 GM (VOLTAREN) TUBE TOP SCH ×2 (08:30→21:19)
--- NOTE | 2019-02-09 08:35 | PM&R Progress Note ---
Subjective HPI/CC On Admission Date Seen by Provider: Feb 09, 2019 Time Seen by Provider: 08:30 CC: Ischemic stroke HPI: This is a 63-year-old white male of Dr. Schultz who presented to via [facility] ER on 01/23/19 with abrupt onset of severe weakness on the right side underwent stroke workup and found to be a candidate for TPA then shipped to [facility] and subsequently underwent left carotid endarterectomy on 01/25/19 but still remains with right sided weakness with severe expressive aphasia. Reviewed the entire record at [facility] and reviewed his home medications and patient appears to be ready to start aggressive physical therapy in order regain function. His drove him from and reports that he did well on the trip. His ianoyt-dx-lcr is a nurse and she helped reviewed the discharge med list. He is currently on. Diet with nectar thickened liquids. CT scan via [facility] and [facility] showed a left ischemic process of the MCA distribution. During hospital course the he had no significant clinical decompensation. Patient requires inpatient rehabilitation with 24 hour physician supervision to monitor her labile blood pressure and monitor for any hemorrhagic residual from ischemic stroke that cannot be provided in any type of lower level of care. 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 Subjective/Events-last exam Pt doing extremely well. Talking more at four and five words at a time. Lidocaine patch has been discontinued since his shoulders are feeling well. Voiding well, does not require any post void residual bladder scanning. Bowels are moving. Denies any other significant problems. Reviewed meds, labs and therapy notes. Getting close to returning home but still benefiting from additional intensive therapies. Review of Systems Neurological: Weakness, Numbness, Incoordination, Confusion Objective Exam Vital Signs Vital Signs Date Time Temp Pulse Resp B/P (MAP) Pulse Ox O2 Delivery O2 Flow Rate FiO2 02/09/19 17:56 98.0 64 18 120/69 (86) 98 Room Air Capillary Refill : General Appearance: No Apparent Distress, WD/WN, Chronically ill HEENT: PERRL/EOMI, Pharynx Normal, Other (right facial droop) Neck: Full Range of Motion, Normal Inspection, Non Tender, Supple, Other ( incision left neck intact) Respiratory: Chest Non Tender, Lungs Clear, Normal Breath Sounds, No Accessory Muscle Use, No Respiratory Distress Cardiovascular: Regular Rate, Rhythm, No Edema, No Gallop, No JVD, No Murmur, Normal Peripheral Pulses Gastrointestinal: Normal Bowel Sounds, No Organomegaly, No Pulsatile Mass, Non Tender, Soft Back: Normal Inspection, No CVA Tenderness, No Vertebral Tenderness Extremity: Normal Capillary Refill, Normal Inspection, Non Tender, No Calf Tenderness, No Pedal Edema, Other (limited ROM right side and mild deficit left) Neurologic/Psychiatric: Alert, Normal Mood/Affect, Abnormal records manager II-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 FIM Transfers Therapy Code Descriptions/Definitions Functional [place] Measure: 0=Not Assessed/NA 4=Minimal Assistance 1=Total Assistance 5=Supervision or Setup 2=Maximal Assistance 6=Modified [place] 3=Moderate Assistance 7=Complete [place] Therapy Quality Codes: 6 Independent with activity with or without an assistive device 5 Patient requires set up or clean up by helper. Patient completes activity by themselves 4 Supervision or touching assist (CGA). [place] provide cues , steadying assist 3 The helper provides less than half the effort to complete the activity 2 The helper provides more than half the effort to complete the activity 1 Dependent. The helper does all the effort to complete an activity 7 Patient refused to complete or attempt activity 9 The patient did not perform the activity before the current illness or injury 88 Not attempted due to Medical conditions or safety concerns Gait Training Does the Patient Walk?: Yes Distance (FIM): 2=642-20 ft Gait Assistive Device: Walker [place] Mental Status/Objective Comprehension: 5 Expression: 1 Social Interaction: 5 Problem Solvin Memory: 5 ADL-Treatment Feedin Eating (QC): 5 Groomin Oral Hygiene (QC): 6 Bathin Bathing Location: L Arm, R Arm, L Upper Leg, R Upper Leg, L Lower Leg ( including foot), R Lower Leg (including foot), Chest, Abdomen, Buttocks, Perineal Area Shower/Bathe Self (QC): 3 Upper Extremity Dressin Upper Body Dressing (QC): 5 Lower Extremity Dressin (Pt. is able to doff/don slipper socks. Unable to don his own AFO and tennis shoes.) Lower Body Dressing (QC): 3 On/Off Footwear (QC): 3 Toiletin Toileting Hygiene (QC): 3 Toilet/Commode Transfer: 4 Toilet Transfer (QC): 4 Shower: 4 Assessment/Plan Assessment and Plan Assess & Plan/Chief Complaint Assessment: (1) Ischemic stroke 01/23/19 (2) S/P carotid endarterectomy 01/25/19 with no improvement in right sided weakness (3) PVD (peripheral vascular disease) (4) CAD (coronary artery disease) (5) Expressive aphasia- improved 02/02/19 (6) Right sided weakness (7) Anemia-iron def so starting iron 02/03/19 (8) Hypertension (9) S/P cataract extraction (10) Dysphagia (11) Hyperlipidemia (12) Constipation-resolved 01/29/19 after meds (13) Klinefelter syndrome (14) Received intravenous tissue plasminogen activator (tPA) in emergency department 01/23/19 at [facility] ER (15) Depression (16) Former smoker (17) Hyponatremia improved on salt tablets (18) DVT prophylaxis (19) Urinary retention-consulted Urology, appreciate recs (20) Lee catheter was in place now DC but back with urinary retention s/p cysto so placed on Urecholine with Flomax and DC Lee and that is working well and voiding normally Plan: Consult Dr Brantley for Urology is appreciated and urinary retention is being managed and now no catheter and voiding well DVT PPx with Heparin but then DC due to oozing so changed to Lovenox once daily Monitor for pain Left cataract eye care with eye drops until completed visiting frequently and that is helping morale Improving with intensive therapies Reviewed PT/OT speech notes Add Iron therapy every other day to prevent constipation and he received his first dose today. 02/04/19 May be able to DC salt tablets in the future (1) Ischemic stroke (2) Anemia Assessment & Plan: Start iron therapy (3) Expressive aphasia (4) CAD (coronary artery disease) (5) Dysphagia (6) Hyperlipidemia (7) PVD (peripheral vascular disease) (8) Hypertension (9) Right sided weakness (10) Klinefelter syndrome (11) Constipation (12) Depression (13) Hyponatremia (14) DVT prophylaxis (15) Received intravenous tissue plasminogen activator (tPA) in emergency department (16) Urinary retention (17) Lee catheter in place (18) S/P carotid endarterectomy (19) S/P cataract extraction (20) Former smoker BOOGIE WHITTEN DO Feb 09, 2019 08:35
--- NOTE | 2019-02-09 08:40 | Progress Note-Urology ---
Progress Note-Urology Progress Notes/Assess & Plan Progress/Assessment & Plan CONTINUES WELL VOIDING. WE WILL SEE PRN Final Diagnosis URINE RETENTION (RESOLVED) CORNELIO MCCABE MD Feb 09, 2019 08:40
--- NOTE | 2019-02-09 09:06 | Speech Therapy Daily Note ---
Speech Daily Progress Note Subjective Date Seen by Provider: Feb 09, 2019 Time Seen by Provider: 00:30 The patient was sitting up in his bed watching tv when I entered the room. Objective The patient completed confrontational naming with a variety of food items with 80% spontaneous responses with min to mod verbal cues. Treatment Plan Continue Plan of Care Communication Comprehension: 5 Expression: 1 Social Cognition Social Interaction: 5 Problem Solvin Memory: 5 Speech Short Term Goals Short Term Goals Short Term Goals 1) The patient will demonstrate orientation to person, place time and situation with 75% accuracy provided with stimulation and choices. 2) The patient will demonstrate correct naming of ten functional simple items during therapy session. 3) The patient will vollow one-step verbal commands with mod verbal/visual cues with 80% accuracy. 4) The patient will tolerate least restrictive diet level without signs/ symptoms of aspiration. 5) The patient will utilize compensatory strategies as trained for safe oral intake at 90% given minimal cues. Speech Senior Graphic Designer Goals Intermediate Goals 1) Patient will communicate basic wants and needs with 2-3 word phrases during therapy sessions. 2) Patient will maintain adequate nutrition/hydration via safe effective swallow function. Speech-Plan Patient/Family Goals Patient/Family Goals: The patient plans to return home with his post rehab. He also has other family near by for support. Treatment Plan Speech Therapy Treatment Plan: Continue Plan of Care The patient is progressing well as a result of skilled ST. Treatment Duration: Feb 12, 2019 Frequency: 5 times per week Estimated Hrs Per Day: .5 hour per day Rehab Potential: Good Barriers to Learning: New onset CVA, moderate expressive aphasia. Pt/Family Agrees to Plan: Yes Safety Risks/Education Teaching Recipient: Patient Teaching Methods: Discussion Response to Teaching: Verbalize Understanding Education Topics Provided: Communication with aids as needed. Time Speech Therapy Time In: 08:30 Speech Therapy Time Out: 09:00 Total Billed Time: 30 Billed Treatment Time 1, EMILY Rivero Feb 09, 2019 09:05
--- NOTE | 2019-02-09 11:31 | Physical Therapy Daily Note ---
PT Daily Note-Current Subjective Pt sitting in recliner upon arrival. Pt agrees to PT. Pain Location: No Pain Reported Mental Status Patient Orientation: Person, Place, Situation Transfers Therapy Code Descriptions/Definitions Functional [place] Measure: 0=Not Assessed/NA 4=Minimal Assistance 1=Total Assistance 5=Supervision or Setup 2=Maximal Assistance 6=Modified Mower 3=Moderate Assistance 7=Complete M[place] Therapy Quality Codes: 6 Independent with activity with or without an assistive device 5 Patient requires set up or clean up by helper. Patient completes activity by themselves 4 Supervision or touching assist (CGA). [place] provide cues , steadying assist 3 The helper provides less than half the effort to complete the activity 2 The helper provides more than half the effort to complete the activity 1 Dependent. The helper does all the effort to complete an activity 7 Patient refused to complete or attempt activity 9 The patient did not perform the activity before the current illness or injury 88 Not attempted due to Medical conditions or safety concerns Scootin Sit to/from Stand: 5 Sit to Stand (QC): 5 Pt needs occasional VC for hand placement with transfers. Weight Bearing Right Lower Extremity: Right Full Weight Bearing Left Lower Extremity: Left Full Weight Bearing Gait Training Does the Patient Walk?: Yes Distance (FIM): 3=150 ft Distance: 250' Walk 10 feet (QC): 5 Walk 50 ft with 2 Turns(QC): 5 Walk 150 ft (QC): 5 Gait Level of Assist: 5 Gait Persons Needed: 1 Gait Assistive Device: FWW PALS NURSE is close SBA for occasional sway/lean. Pt is able to self-correct. Wheelchair Training Does the Pt Use a Wheelchair?: No Exercises Standing: Hip Abduction, Heel/toe raises, 3 way Ex=Flex, Abd, Ext (5 reps), Mini squats Standing Reps: 15 NuStep Minutes: 11 NuStep Workload: 4 Treatments Pt transfers from recliner using LBQC. Pt ambulates in hallway. Pt uses NuStep then takes short RB before completing Standing Ex at //bars. Pt ambulates in hallway before returning to room. Pt resting in recliner, awaiting OT tx. Pt has all needs met. Assessment Current Status: Good Progress Pt needs reminders to picker R foot especially when fatigued. PT Short Term Goals Short Term Goals Time Frame: Feb 04, 2019 Transfers (B,C,W/C) (FIM): 4 (met) Gait (FIM): 1 (met) Gait Distance Comment: 20' Gait Level of Assist: 3 Gait Assistive Device: Walker Henry Wheelchair Distance: 80' PT Rn Cardiac Goals Custodial Goals PT Custodial Goals Time Frame: Feb 18, 2019 Transfers (B,C,W/C) (FIM): 4 Sit to Lying (QC): 4 Lying-Sitting on Side/Bed(QC): 4 Sit to Stand (QC): 4 Rollin Roll Left to Right (QC): 4 Chair/Qsk-kp-Autmj Xfer(QC): 4 Car Transfer (QC): 4 Gait (FIM): 2 Distance: 50' Walk 10 feet (QC): 3 Walk 10ft-Uneven Surface(QC): 3 Walk 50ft with 2 Turns (QC): 3 Gait Level of Assist: 4 Gait Assistive Device: Cane Large Base Quad Wheelchair (FIM): 6 Distance: 150' Wheelchair Level of Assist: 6 Wheel 50 feet with 2 turns (QC: 6 Stairs (FIM): 1 # of Steps: 1 1 Step (curb) (QC): 3 Stairs Level Of Assist: 4 PT Plan Problem List Problem List: Activity Tolerance, Functional Strength, Safety, Balance, Gait Treatment/Plan Treatment Plan: Continue Plan of Care Treatment Plan: Bed Mobility, Concurrent Therapy, Education, Functional Activity Gifty, Functional Strength, Group Therapy, Gait, Safety, Therapeutic Exercise, Transfers Treatment Duration: Feb 18, 2019 Frequency: At least 5 of 7 days/Wk (IRF) Estimated Hrs Per Day: 1.5 hours per day Patient and/or Family Agrees t: Yes Safety Risks/Education Patient Education: Gait Training, Transfer Techniques, Correct Positioning, Safety Issues Teaching Recipient: Patient Teaching Methods: Discussion Response to Teaching: Verbalize Understanding Time/GCodes Time In: 915 Time Out: 1000 Total Billed Treatment Time: 45 Total Billed Treatment 1, GT (15m) & EX x2 (30m) G Codes Necessary: JASMIN Calero PALS NURSE Feb 09, 2019 11:31
--- NOTE | 2019-02-09 14:14 | Occupational Ther Daily Note ---
OT Current Status-Daily Note Subjective No pain reported. Appearance Pt. up in chair. Agrees to shower. Mental Status/Objective Patient Orientation: Person, Place Therapy Code Descriptions/Definitions Functional [place] Measure: 0=Not Assessed/NA 4=Minimal Assistance 1=Total Assistance 5=Supervision or Setup 2=Maximal Assistance 6=Modified [place] 3=Moderate Assistance 7=Complete [place] ADL-Treatment Therapy Code Descriptions/Definitions Functional [place] Measure: 0=Not Assessed/NA 4=Minimal Assistance 1=Total Assistance 5=Supervision or Setup 2=Maximal Assistance 6=Modified [place] 3=Moderate Assistance 7=Complete [place] Therapy Quality Codes: 6 Independent with activity with or without an assistive device 5 Patient requires set up or clean up by helper. Patient completes activity by themselves 4 Supervision or touching assist (CGA). [place] provide cues , steadying assist 3 The helper provides less than half the effort to complete the activity 2 The helper provides more than half the effort to complete the activity 1 Dependent. The helper does all the effort to complete an activity 7 Patient refused to complete or attempt activity 9 The patient did not perform the activity before the current illness or injury 88 Not attempted due to Medical conditions or safety concerns Grooming (FIM): 5 (SBA up in chair at sink to brush hair and teeth.) Oral Hygiene (QC): 4 Bathing (FIM): 4 (CGA in stance for balance.) Shower/Bathe Self (QC): 4 Upper Body (FIM): 4 (Min assist to adjust in back.) Upper Body Dressing (QC): 4 Lower Body Dressing (FIM): 4 (Pt. able to don underwear, pants, socks, and shoes. Unable to tie shoes. Spoke with him regarding elastic laces.) Lower Body Dressing (QC): 4 On/Off Footwear (QC): 4 Transfers (B, C, W/C) (FIM): 4 (CGA/min assist to ambulate with quad cane to and from gym. ) Shower Transfer(FIM): 4 Other Treatment After ADLs, pt. ambulated to therapy gym. Tolerated 10 minutes on armbike with hand romeo wrapped to armbike due to weakness. Pt. able to tolerate 10 minutes at moderate resistance. Tolerated this well for increased ROM to right shoulder. OT provided gentle PROM and stretch to right UE. No tightness or inappropriate tone noted. Worked on fine motor coordination and strengthening with cards and pegs. 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 Pt. is educated to stabilize items using right hand, while left hand performs the task. Pt. ambulated back to room with all needs met. Education OT Patient Education: Correct positioning, Exercise program, Modified ADL techniques, Progress toward Goal/Update tx plan, Purpose of tx/functional activities, Reviewed precautions, Rehab process, Transfer techniques Teaching Recipient: Patient Teaching Methods: Demonstration, Discussion Response to Teaching: Verbalize Understanding, Return Demonstration OT Short Term Goals Short Term Goals Time Frame: Feb 11, 2019 Eating(FIM): 4 Grooming(FIM): 44 Bathing(FIM): 3 Upper Body Dressing(FIM): 3 Lower Body Dressing(FIM): 3 Toileting(FIM): 4 Transfers (B,C,W/C) (FIM): 4 (met) Toilet/Commode Transfer(FIM): 4 Shower Transfer(FIM): 4 Additional Short Term Goals: 1-Demonstrate ADL Tasks, 2-Verbalize Understanding , 3-ImproveStrength/Gifty 1=Demonstrate adherence to instructed precautions during ADL tasks. 2=Patient will verbalize/demonstrate understanding of assistive devices/ modifications for ADL. 3=Patient will improve strength/tolerance for activity to enable patient to perform ADL's. OT Compressed Gases Tester Goals Compressed Gases Tester Goals Time Frame: February 25, 2019 Eating (FIM): 6 Eating (QC): 6 Groomin Oral Hygiene (QC): 6 Bathing(FIM): 5 Shower/Bathe Self (QC): 5 Upper Body Dressing(FIM): 5 Upper Body Dressing (QC): 5 Lower Body Dressing(FIM): 5 Lower Body Dressing (QC): 5 On/Off Footwear (QC): 5 Toileting(FIM): 6 Toileting Hygiene (QC): 6 Transfers (B,C,W/C) (FIM): 6 Toilet/Commode Transfer(FIM): 6 Toilet/Commode Transfer (QC): 6 Shower Transfer(FIM): 5 Additional Goals: 1-Demonstrate ADL Tasks, 2-Verbalize Understanding, 3- ImproveStrength/Gifty 1=Demonstrate adherence to instructed precautions during ADL tasks. 2=Patient will verbalize/demonstrate understanding of assistive devices/ modifications for ADL. 3=Patient will improve strength/tolerance for activity to enable patient to perform ADL's. OT Education/Plan Problem List/Assessment Assessment: Decreased Activ Tolerance, Decreased UE Strength, Dependent Transfers, Impaired Coordination, Impaired Funct Balance, Impaired I ADL's, Impaired Self-Care Skills, Restricted Funct UE ROM pt continue to make progress toward all OT goals. pt would benefit from additional OT services to maximize rehab potential and to increase overall independence with ADLS/ functional transfers. Discharge Recommendations Plan/Recommendations: Continue POC Therapy D/C Recommendations: Home w/ Family Support, Occupational Therapy Home Care Treatment Plan/Plan of Care Treatment,Training & Education: Yes Patient would benefit from OT for education, treatment and training to promote independence in ADL's, mobility, safety and/or upper extremity function for ADL' s. Plan of Care: ADL Retraining, Functional Mobility, Group Exercise/Act as Ind, UE Funct Exercise/Act Treatment Duration: February 25, 2019 Frequency: At least 5 of 7 days/Wk (IRF) Estimated Hrs Per Day: 1.5 hours per day Agreement: Yes Rehab Potential: Good Time/GCodes Start Time: 10:00 Stop Time: 11:15 Total Time Billed (hr/min): 75 Billed Treatment Time 1, ADL x 45minutes, Ex x 30minutes PAULETTE HALL OT Feb 09, 2019 14:14
--- NOTE | 2019-02-09 14:46 | Physical Therapy Daily Note ---
PT Daily Note-Current Subjective Pt sitting up in recliner upon arrival. Pt agrees to PT. Mental Status Patient Orientation: Person, Place, Situation Transfers Therapy Code Descriptions/Definitions Functional [place] Measure: 0=Not Assessed/NA 4=Minimal Assistance 1=Total Assistance 5=Supervision or Setup 2=Maximal Assistance 6=Modified [place] 3=Moderate Assistance 7=Complete [place] Therapy Quality Codes: 6 Independent with activity with or without an assistive device 5 Patient requires set up or clean up by helper. Patient completes activity by themselves 4 Supervision or touching assist (CGA). [place] provide cues , steadying assist 3 The helper provides less than half the effort to complete the activity 2 The helper provides more than half the effort to complete the activity 1 Dependent. The helper does all the effort to complete an activity 7 Patient refused to complete or attempt activity 9 The patient did not perform the activity before the current illness or injury 88 Not attempted due to Medical conditions or safety concerns Scootin Supine to/from Sit: 5 Sit to/from Stand: 5 Sit to Lying (QC): 5 Sit to Stand (QC): 5 Weight Bearing Right Lower Extremity: Right Full Weight Bearing Left Lower Extremity: Left Full Weight Bearing Gait Training Does the Patient Walk?: Yes Distance (FIM): 3=150 ft Distance: 175' Walk 10 feet (QC): 5 Walk 50 ft with 2 Turns(QC): 5 Walk 150 ft (QC): 5 Gait Level of Assist: 5 Gait Persons Needed: 1 Gait Assistive Device: Cane Large Base Quad Pt fatigues and will drag or shuffle R foot as he fatigues. Wheelchair Training Does the Pt Use a Wheelchair?: No Treatments Pt transfers from recliner to standing. Pt ambulates in hallway. Pt then completes Standing activity with Therapy ball focused on standing balance especially outside of JOSE. Pt returns to room at end of tx to rest Supine in bed. Pt has all needs met. Assessment Current Status: Good Progress Pt more fatigued this afternoon by end of tx. PT Short Term Goals Short Term Goals Time Frame: Feb 04, 2019 Transfers (B,C,W/C) (FIM): 4 (met) Gait (FIM): 1 (met) Gait Distance Comment: 20' Gait Level of Assist: 3 Gait Assistive Device: Walker Henry Wheelchair Distance: 80' PT Fire Sprinkler Apparatus Inspector Goals Usp Goals PT Fire Sprinkler Apparatus Inspector Goals Time Frame: Feb 18, 2019 Transfers (B,C,W/C) (FIM): 4 Sit to Lying (QC): 4 Lying-Sitting on Side/Bed(QC): 4 Sit to Stand (QC): 4 Rollin Roll Left to Right (QC): 4 Chair/Cct-os-Gfhgw Xfer(QC): 4 Car Transfer (QC): 4 Gait (FIM): 2 Distance: 50' Walk 10 feet (QC): 3 Walk 10ft-Uneven Surface(QC): 3 Walk 50ft with 2 Turns (QC): 3 Gait Level of Assist: 4 Gait Assistive Device: Cane Large Base Quad Wheelchair (FIM): 6 Distance: 150' Wheelchair Level of Assist: 6 Wheel 50 feet with 2 turns (QC: 6 Stairs (FIM): 1 # of Steps: 1 1 Step (curb) (QC): 3 Stairs Level Of Assist: 4 PT Plan Problem List Problem List: Activity Tolerance, Functional Strength, Safety, Balance, Gait Treatment/Plan Treatment Plan: Continue Plan of Care Treatment Plan: Bed Mobility, Concurrent Therapy, Education, Functional Activity Gifty, Functional Strength, Group Therapy, Gait, Safety, Therapeutic Exercise, Transfers Treatment Duration: Feb 18, 2019 Frequency: At least 5 of 7 days/Wk (IRF) Estimated Hrs Per Day: 1.5 hours per day Patient and/or Family Agrees t: Yes Safety Risks/Education Patient Education: Gait Training, Correct Positioning, Safety Issues Teaching Recipient: Patient Teaching Methods: Discussion Response to Teaching: Verbalize Understanding Time/GCodes Time In: 1230 Time Out: 1300 Total Billed Treatment Time: 30 Total Billed Treatment 1, GT (15m) & FA (15m) G Codes Necessary: JASMIN Calero VP SOFTWARE ENGINEERING Feb 09, 2019 14:46
[2019-02-09] MEDS: TAMSULOSIN 0.4 MG (FLOMAX) CAP PO SCH (17:39)
[2019-02-09 17:56] VITALS: BP 120/69
[2019-02-09] MEDS: ATORVASTATIN 80 MG (LIPITOR) TABLET PO SCH (21:18)
[2019-02-09] MEDS: LIDOCAINE PATCH REMOVAL TP SCH (21:22)
[2019-02-10 06:00] VITALS: BP 137/73
[2019-02-10] MEDS: BETHANECHOL 25 MG (URECHOLINE) TAB PO SCH ×4 (06:35→21:12)
[2019-02-10 08:00] VITALS: BP 115/69
[2019-02-10] MEDS: CLOPIDOGREL 75 MG (PLAVIX) TABLET PO SCH (08:46)
[2019-02-10] MEDS: BISOPROLOL 5 MG TAB (ZEBETA) PO SCH (08:46)
[2019-02-10] MEDS: SERTRALINE 100 MG (ZOLOFT) TAB PO SCH (08:46)
[2019-02-10] MEDS: SODIUM CHLORIDE 1 GM TAB (NON-FORMULARY) PO SCH ×3 (08:46→21:12)
[2019-02-10] MEDS: amLODIPine 5 MG (NORVASC) TAB PO SCH (08:46)
[2019-02-10] MEDS: SENNA W/DOCUSATE (SENOKOT S) TABLET PO SCH ×2 (08:46→21:13)
[2019-02-10] MEDS: SIMBRINZA PO SCH ×2 (08:50→21:13)
[2019-02-10] MEDS: ENOXAPARIN 40 MG/0.4 ML (LOVENOX) SYR SC SCH (08:50)
[2019-02-10] MEDS: prednisoLONE 1% OPTH (PRED FORTE) 5 ML BTL OS SCH ×4 (08:50→21:09)
[2019-02-10] MEDS: EYE PO SCH ×2 (08:50→21:13)
--- NOTE | 2019-02-10 08:51 | PM&R Progress Note ---
Subjective HPI/CC On Admission Date Seen by Provider: Feb 10, 2019 Time Seen by Provider: 08:45 CC: Ischemic stroke HPI: This is a 63-year-old white male of Dr. Schultz who presented to via [facility] [place] ER on 01/23/19 with abrupt onset of severe weakness on the right side underwent stroke workup and found to be a candidate for TPA then shipped to [facility] and subsequently underwent left carotid endarterectomy on 01/25/19 but still remains with right sided weakness with severe expressive aphasia. Reviewed the entire record at [facility] and reviewed his home medications and patient appears to be ready to start aggressive physical therapy in order regain function. His drove him from and reports that he did well on the trip. His ytnijh-hj-duv is a nurse and she helped reviewed the discharge med list. He is currently on. Diet with nectar thickened liquids. CT scan via [facility] and [facility] showed a left ischemic process of the MCA distribution. During hospital course the he had no significant clinical decompensation. Patient requires inpatient rehabilitation with 24 hour physician supervision to monitor her labile blood pressure and monitor for any hemorrhagic residual from ischemic stroke that cannot be provided in any type of lower level of care. 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 Subjective/Events-last exam Pt doing well. Talking more and more with 4 and 5 words together. Off balance a bit and refuses to use the AFO brace on his left leg. Will stop Lovenox since he is oozing and he is very active now. Minimal assist in OT with dressing. Speech therapy will evaluate him for a regular diet. Intention is to go home at discharge. Reviewed therapy notes and meds and labs and vitals Review of Systems Neurological: Weakness, Numbness, Incoordination, Confusion Objective Exam Vital Signs Vital Signs Date Time Temp Pulse Resp B/P (MAP) Pulse Ox O2 Delivery O2 Flow Rate FiO2 02/10/19 18:00 97.0 57 18 118/59 (78) 95 Room Air Capillary Refill : General Appearance: No Apparent Distress, WD/WN, Chronically ill HEENT: PERRL/EOMI, Pharynx Normal, Other (right facial droop) Neck: Full Range of Motion, Normal Inspection, Non Tender, Supple, Other ( incision left neck intact) Respiratory: Chest Non Tender, Lungs Clear, Normal Breath Sounds, No Accessory Muscle Use, No Respiratory Distress Cardiovascular: Regular Rate, Rhythm, No Edema, No Gallop, No JVD, No Murmur, Normal Peripheral Pulses Gastrointestinal: Normal Bowel Sounds, No Organomegaly, No Pulsatile Mass, Non Tender, Soft Back: Normal Inspection, No CVA Tenderness, No Vertebral Tenderness Extremity: Normal Capillary Refill, Normal Inspection, Non Tender, No Calf Tenderness, No Pedal Edema, Other (limited ROM right side and mild deficit left) Neurologic/Psychiatric: Alert, Normal Mood/Affect, Abnormal oil drilling engineer II-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 FIM Transfers Therapy Code Descriptions/Definitions Functional [place] Measure: 0=Not Assessed/NA 4=Minimal Assistance 1=Total Assistance 5=Supervision or Setup 2=Maximal Assistance 6=Modified [place] 3=Moderate Assistance 7=Complete [place] Therapy Quality Codes: 6 Independent with activity with or without an assistive device 5 Patient requires set up or clean up by helper. Patient completes activity by themselves 4 Supervision or touching assist (CGA). [place] provide cues , steadying assist 3 The helper provides less than half the effort to complete the activity 2 The helper provides more than half the effort to complete the activity 1 Dependent. The helper does all the effort to complete an activity 7 Patient refused to complete or attempt activity 9 The patient did not perform the activity before the current illness or injury 88 Not attempted due to Medical conditions or safety concerns Gait Training Does the Patient Walk?: Yes Distance (FIM): 1=up to 49 ft Gait Assistive Device: Cane Small Base Quad Mental Status/Objective Comprehension: 5 Expression: 1 Social Interaction: 5 Problem Solvin Memory: 5 ADL-Treatment Feedin Eating (QC): 5 Groomin (SBA up in chair at sink to brush hair and teeth.) Oral Hygiene (QC): 4 Bathin (CGA in stance for balance.) Bathing Location: L Arm, R Arm, L Upper Leg, R Upper Leg, L Lower Leg ( including foot), R Lower Leg (including foot), Chest, Abdomen, Buttocks, Perineal Area Shower/Bathe Self (QC): 4 Upper Extremity Dressin (Min assist to adjust in back.) Upper Body Dressing (QC): 4 Lower Extremity Dressin (Pt. able to don underwear, pants, socks, and shoes. Unable to tie shoes. Spoke with him regarding elastic laces.) Lower Body Dressing (QC): 4 On/Off Footwear (QC): 4 Toiletin Toileting Hygiene (QC): 3 Toilet/Commode Transfer: 4 Toilet Transfer (QC): 4 Shower: 4 Assessment/Plan Assessment and Plan Assess & Plan/Chief Complaint Assessment: (1) Ischemic stroke 01/23/19 (2) S/P carotid endarterectomy 01/25/19 with no improvement in right sided weakness (3) PVD (peripheral vascular disease) (4) CAD (coronary artery disease) (5) Expressive aphasia- improved 02/02/19 (6) Right sided weakness (7) Anemia-iron def so starting iron 02/03/19 (8) Hypertension (9) S/P cataract extraction (10) Dysphagia (11) Hyperlipidemia (12) Constipation-resolved 01/29/19 after meds (13) Klinefelter syndrome (14) Received intravenous tissue plasminogen activator (tPA) in emergency department 01/23/19 at [facility] ER (15) Depression (16) Former smoker (17) Hyponatremia improved on salt tablets (18) DVT prophylaxis (19) Urinary retention-consulted Urology, appreciate recs (20) Lee catheter was in place now DC but back with urinary retention s/p cysto so placed on Urecholine with Flomax and DC Lee and that is working well and voiding normally Plan: Consult Dr Brantley for Urology is appreciated and urinary retention is being managed and now no catheter and voiding well DVT PPx with Heparin but then DC due to oozing so changed to Lovenox once daily then DC today, 02/10/19 due to bleeding and patient ambulating enough for DVT PPx naturally Monitor for pain Left cataract eye care with eye drops until completed visiting frequently and that is helping morale Improving with intensive therapies Reviewed PT/OT speech notes Add Iron therapy every other day to prevent constipation and he received his first dose today. 02/04/19 May be able to DC salt tablets in the future (1) Ischemic stroke (2) Anemia Assessment & Plan: Start iron therapy (3) Expressive aphasia (4) CAD (coronary artery disease) (5) Dysphagia (6) Hyperlipidemia (7) PVD (peripheral vascular disease) (8) Hypertension (9) Right sided weakness (10) Klinefelter syndrome (11) Constipation (12) Depression (13) Hyponatremia (14) DVT prophylaxis (15) Received intravenous tissue plasminogen activator (tPA) in emergency department (16) Urinary retention Assessment & Plan: Resolved (17) Lee catheter in place Assessment & Plan: Resolved (18) S/P carotid endarterectomy (19) S/P cataract extraction (20) Former smoker BOOGIE WHITTEN DO Feb 10, 2019 08:50
[2019-02-10] MEDS: DICLOFENAC 1% GEL 100 GM (VOLTAREN) TUBE TOP SCH ×2 (08:53→21:13)
[2019-02-10] MEDS: POLYETHYLENE GLYCOL 17 GM (MIRALAX) PACK PO SCH ×2 (08:53→19:55)
[2019-02-10] MEDS: LIDOCAINE 4% (SALONPAS) PATCH TOP SCH (08:53)
[2019-02-10] MEDS: ASPIRIN 81 MG CHEW (CHILDREN'S ASA) PO SCH (08:59)
--- NOTE | 2019-02-10 09:25 | Speech Therapy Daily Note ---
Speech Daily Progress Note Subjective Date Seen by Provider: Feb 10, 2019 Time Seen by Provider: 00:30 The patient was resting in his bed watching tv when I entered his room. Objective Patient completed common phrases with 70% accuracy given moderate verbal cues. Assessment Assessment Current Status: Good Progress Treatment Plan Continue Plan of Care Communication Comprehension: 5 Expression: 1 Social Cognition Social Interaction: 5 Problem Solvin Memory: 5 Speech Short Term Goals Short Term Goals Short Term Goals 1) The patient will demonstrate orientation to person, place time and situation with 75% accuracy provided with stimulation and choices. 2) The patient will demonstrate correct naming of ten functional simple items during therapy session. 3) The patient will vollow one-step verbal commands with mod verbal/visual cues with 80% accuracy. 4) The patient will tolerate least restrictive diet level without signs/ symptoms of aspiration. 5) The patient will utilize compensatory strategies as trained for safe oral intake at 90% given minimal cues. Speech Retirement Goals Retirement Goals 1) Patient will communicate basic wants and needs with 2-3 word phrases during therapy sessions. 2) Patient will maintain adequate nutrition/hydration via safe effective swallow function. Speech-Plan Patient/Family Goals Patient/Family Goals: The patient plans to return home with his post rehab with assistance from their daughters as needed Treatment Plan Speech Therapy Treatment Plan: Continue Plan of Care Patient's word finding and expressive language is improving. Treatment Duration: Feb 12, 2019 Frequency: 5 times per week Estimated Hrs Per Day: .5 hour per day Rehab Potential: Good Barriers to Learning: New onset CVA and moderate expressive language. Pt/Family Agrees to Plan: Yes Safety Risks/Education Teaching Recipient: Patient Teaching Methods: Discussion Response to Teaching: Verbalize Understanding Education Topics Provided: Safety of oral intake due to being upgraded to a regular diet level today. Time Speech Therapy Time In: 08:30 Speech Therapy Time Out: 09:00 Total Billed Time: 30 Billed Treatment Time [address] Feb 10, 2019 09:25
--- NOTE | 2019-02-10 10:00 | NUR ---
ASKING ABOUT INCREASE IN DIET AND CHANGED TO REGULAR DIET AFTER CONSULTING WITH THIEN SPEECH THERAPIST. PATIENT ADMITS TO "FEELING A LITTLE OFF BALANCE TODAY".
--- NOTE | 2019-02-10 11:52 | Physical Therapy Daily Note ---
PT Daily Note-Current Subjective Pt. was in bed upon arrival. Pt. agreed to therapy treatment. Pt. had no complaints of pain. Transfers Therapy Code Descriptions/Definitions Functional [place] Measure: 0=Not Assessed/NA 4=Minimal Assistance 1=Total Assistance 5=Supervision or Setup 2=Maximal Assistance 6=Modified [place] 3=Moderate Assistance 7=Complete [place] Therapy Quality Codes: 6 Independent with activity with or without an assistive device 5 Patient requires set up or clean up by helper. Patient completes activity by themselves 4 Supervision or touching assist (CGA). [place] provide cues , steadying assist 3 The helper provides less than half the effort to complete the activity 2 The helper provides more than half the effort to complete the activity 1 Dependent. The helper does all the effort to complete an activity 7 Patient refused to complete or attempt activity 9 The patient did not perform the activity before the current illness or injury 88 Not attempted due to Medical conditions or safety concerns Scootin Supine to/from Sit: 5 Sit to/from Stand: 5 Sit to Lying (QC): 5 Sit to Stand (QC): 5 Pt. stumbled during transfer from sit to stand from bed due to anxiousness to get up and move. Weight Bearing Right Lower Extremity: Right Full Weight Bearing Left Lower Extremity: Left Full Weight Bearing Gait Training Does the Patient Walk?: Yes Distance (FIM): 3=150 ft Distance: 150' Gait Level of Assist: 5 Gait Persons Needed: 1 Gait Assistive Device: Cane Large Base Quad Pt. does well when beginning to ambulate but tends to drag the toe/foot when fatigue on the R LE. Wheelchair Training Does the Pt Use a Wheelchair?: No Exercises Standing: Hip Abduction, Heel/toe raises, 3 way Ex=Flex, Abd, Ext, Marching, Mini squats, Weight shifts Standing Reps: 10 NuStep Minutes: 10 NuStep Workload: 5 Treatments Pt. transferred from bed and ambulated to therapy room. Pt. then rode Nustep x 10 min on workload 5. Pt. completed standing exercises with 1 RB. Pt. then completed balance activity by standing up and playing catch with therapist. Pt. then ambulated back to room. Pt. left with call light and all needs met. Assessment Current Status: Good Progress Pt. tolerated treatment well. Therapist noticed slight abdominal bleeding and notified nurse. Pt. will continue to benefit from therapy to help with strength and balance. PT Short Term Goals Short Term Goals Time Frame: Feb 04, 2019 Transfers (B,C,W/C) (FIM): 4 (met) Gait (FIM): 1 (met) Gait Distance Comment: 20' Gait Level of Assist: 3 Gait Assistive Device: Walker Henry Wheelchair Distance: 80' PT Livestock Sales Representative Goals Alf Goals PT Alf Goals Time Frame: Feb 18, 2019 Transfers (B,C,W/C) (FIM): 4 Sit to Lying (QC): 4 Lying-Sitting on Side/Bed(QC): 4 Sit to Stand (QC): 4 Rollin Roll Left to Right (QC): 4 Chair/Rqx-xy-Xyjsi Xfer(QC): 4 Car Transfer (QC): 4 Gait (FIM): 2 Distance: 50' Walk 10 feet (QC): 3 Walk 10ft-Uneven Surface(QC): 3 Walk 50ft with 2 Turns (QC): 3 Gait Level of Assist: 4 Gait Assistive Device: Cane Large Base Quad Wheelchair (FIM): 6 Distance: 150' Wheelchair Level of Assist: 6 Wheel 50 feet with 2 turns (QC: 6 Stairs (FIM): 1 # of Steps: 1 1 Step (curb) (QC): 3 Stairs Level Of Assist: 4 PT Plan Treatment/Plan Treatment Plan: Continue Plan of Care Treatment Plan: Bed Mobility, Concurrent Therapy, Education, Functional Activity Gifty, Functional Strength, Group Therapy, Gait, Safety, Therapeutic Exercise, Transfers Treatment Duration: Feb 18, 2019 Frequency: At least 5 of 7 days/Wk (IRF) Estimated Hrs Per Day: 1.5 hours per day Patient and/or Family Agrees t: Yes Safety Risks/Education Patient Education: Gait Training, Transfer Techniques, Correct Positioning, Safety Issues Teaching Recipient: Patient Teaching Methods: Discussion Response to Teaching: Verbalize Understanding, Return Demonstration Time/GCodes Time In: 915 Time Out: 1000 Total Billed Treatment Time: 45 Total Billed Treatment 1, GT, EX x 2 G Codes Necessary: JASMIN Calero LINE PATROLMAN Feb 10, 2019 11:51
--- NOTE | 2019-02-10 12:56 | Occupational Ther Daily Note ---
OT Current Status-Daily Note Subjective No pain reported. Appearance Pt. up in chair. Declines showering but agrees to change clothing. Mental Status/Objective Patient Orientation: Person, Place, Time, Situation Therapy Code Descriptions/Definitions Functional [place] Measure: 0=Not Assessed/NA 4=Minimal Assistance 1=Total Assistance 5=Supervision or Setup 2=Maximal Assistance 6=Modified [place] 3=Moderate Assistance 7=Complete [place] ADL-Treatment Therapy Code Descriptions/Definitions Functional [place] Measure: 0=Not Assessed/NA 4=Minimal Assistance 1=Total Assistance 5=Supervision or Setup 2=Maximal Assistance 6=Modified [place] 3=Moderate Assistance 7=Complete [place] Therapy Quality Codes: 6 Independent with activity with or without an assistive device 5 Patient requires set up or clean up by helper. Patient completes activity by themselves 4 Supervision or touching assist (CGA). [place] provide cues , steadying assist 3 The helper provides less than half the effort to complete the activity 2 The helper provides more than half the effort to complete the activity 1 Dependent. The helper does all the effort to complete an activity 7 Patient refused to complete or attempt activity 9 The patient did not perform the activity before the current illness or injury 88 Not attempted due to Medical conditions or safety concerns Grooming (FIM): 5 (Set up to brush teeth and hair sitting in chair at sink.) Oral Hygiene (QC): 4 Upper Body (FIM): 4 Upper Body Dressing (QC): 4 Lower Body Dressing (FIM): 4 (Pt. able to doff underwear and pants in stance over hips, and then sits to doff over feet. Able to doff shoes. Pt. is able to don underwear and pants over feet sitting, and then stands to car repairer pullman hips. OT put elastic laces in shoes and pt. able to don them. OT adjusts them for him.) Lower Body Dressing (QC): 4 On/Off Footwear (QC): 4 Transfers (B, C, W/C) (FIM): 4 Other Treatment After ADLs in room, pt. ambulated to therapy gym. OT romeo wrapped right hand to armbike and pt. able to complete 12 minutes on armbike at mod resistance to increase overall strength and independence. Pt. then worked on fine motor coordination and strengthening with theraputty and pegs. Pt. has good movement but poor strength. After completing tasks, pt. ambulates back to room with min assist. All needs met. Education OT Patient Education: Correct positioning, Exercise program, Modified ADL techniques, Progress toward Goal/Update tx plan, Purpose of tx/functional activities, Reviewed precautions, Rehab process, Transfer techniques Teaching Recipient: Patient Teaching Methods: Demonstration Response to Teaching: Verbalize Understanding, Unable to Return Demonstration ( 021`), Return Demonstration OT Short Term Goals Short Term Goals Time Frame: Feb 11, 2019 Eating(FIM): 4 Grooming(FIM): 44 Bathing(FIM): 3 Upper Body Dressing(FIM): 3 Lower Body Dressing(FIM): 3 Toileting(FIM): 4 Transfers (B,C,W/C) (FIM): 4 (met) Toilet/Commode Transfer(FIM): 4 Shower Transfer(FIM): 4 Additional Short Term Goals: 1-Demonstrate ADL Tasks, 2-Verbalize Understanding , 3-ImproveStrength/Gifty 1=Demonstrate adherence to instructed precautions during ADL tasks. 2=Patient will verbalize/demonstrate understanding of assistive devices/ modifications for ADL. 3=Patient will improve strength/tolerance for activity to enable patient to perform ADL's. OT Correction Goals Correction Goals Time Frame: February 25, 2019 Eating (FIM): 6 Eating (QC): 6 Groomin Oral Hygiene (QC): 6 Bathing(FIM): 5 Shower/Bathe Self (QC): 5 Upper Body Dressing(FIM): 5 Upper Body Dressing (QC): 5 Lower Body Dressing(FIM): 5 Lower Body Dressing (QC): 5 On/Off Footwear (QC): 5 Toileting(FIM): 6 Toileting Hygiene (QC): 6 Transfers (B,C,W/C) (FIM): 6 Toilet/Commode Transfer(FIM): 6 Toilet/Commode Transfer (QC): 6 Shower Transfer(FIM): 5 Additional Goals: 1-Demonstrate ADL Tasks, 2-Verbalize Understanding, 3- ImproveStrength/Gifty 1=Demonstrate adherence to instructed precautions during ADL tasks. 2=Patient will verbalize/demonstrate understanding of assistive devices/ modifications for ADL. 3=Patient will improve strength/tolerance for activity to enable patient to perform ADL's. OT Education/Plan Problem List/Assessment Assessment: Decreased Activ Tolerance, Decreased UE Strength, Impaired Bed Mobility, Impaired Coordination, Impaired I ADL's, Impaired Self-Care Skills, Restricted Funct UE ROM pt continue to make progress toward all OT goals. pt would benefit from additional OT services to maximize rehab potential and to increase overall independence with ADLS/ functional transfers. Discharge Recommendations Plan/Recommendations: Continue POC Therapy D/C Recommendations: Home w/ Family Support, Occupational Therapy Home Care Treatment Plan/Plan of Care Treatment,Training & Education: Yes Patient would benefit from OT for education, treatment and training to promote independence in ADL's, mobility, safety and/or upper extremity function for ADL' s. Plan of Care: ADL Retraining, Functional Mobility, Group Exercise/Act as Ind, UE Funct Exercise/Act Treatment Duration: February 25, 2019 Frequency: At least 5 of 7 days/Wk (IRF) Estimated Hrs Per Day: 1.5 hours per day Agreement: Yes Rehab Potential: Good Time/GCodes Start Time: 10:00 Stop Time: 11:20 Total Time Billed (hr/min): 80 Billed Treatment Time 1, ADL x 30minutes, FA x 20minutes, FA x 30minutes PAULETTE HALL OT Feb 10, 2019 12:56
--- NOTE | 2019-02-10 13:00 | NUR ---
NILO INJECTION SITE RIGHT ABDOMEN BLEEDING. HAVE CHANGED BANDAIDS X 2 AND THEN PUT A PRESSURE DRESSING ON IT. BLOOD GOT ON SHIRT, SHEET AND BLANKET. DR. WHITTEN NOTIFIED AND NILO SHARMA.
--- NOTE | 2019-02-10 15:00 | NUR ---
DIPIKA SHARMA. DAUGHTER CALLING IN FOR REGULAR DINNER TONIGHT AND ALL 3 MEALS TOMORROW.
--- NOTE | 2019-02-10 15:02 | Physical Therapy Daily Note ---
PT Daily Note-Current Subjective Pt. was in bed upon arrival. Pt. had no complaints of pain. Pt. agreed to therapy. Transfers Therapy Code Descriptions/Definitions Functional [place] Measure: 0=Not Assessed/NA 4=Minimal Assistance 1=Total Assistance 5=Supervision or Setup 2=Maximal Assistance 6=Modified [place] 3=Moderate Assistance 7=Complete [place] Therapy Quality Codes: 6 Independent with activity with or without an assistive device 5 Patient requires set up or clean up by helper. Patient completes activity by themselves 4 Supervision or touching assist (CGA). [place] provide cues , steadying assist 3 The helper provides less than half the effort to complete the activity 2 The helper provides more than half the effort to complete the activity 1 Dependent. The helper does all the effort to complete an activity 7 Patient refused to complete or attempt activity 9 The patient did not perform the activity before the current illness or injury 88 Not attempted due to Medical conditions or safety concerns Scootin Supine to/from Sit: 5 Sit to/from Stand: 5 Sit to Lying (QC): 5 Sit to Stand (QC): 5 Pt. needs cued on gathering themselves during sit to stand before ambulating. Pt. shows slight impulsivity. Weight Bearing Right Lower Extremity: Right Full Weight Bearing Left Lower Extremity: Left Full Weight Bearing Gait Training Does the Patient Walk?: Yes Distance (FIM): 3=150 ft Distance: 150' Gait Level of Assist: 5 Gait Persons Needed: 1 Gait Assistive Device: Cane Large Base Quad Pt. frequently scoots R LE across floor during ambulation. Pt. shows DF weakness during ambulation. Wheelchair Training Does the Pt Use a Wheelchair?: No Stair Training Stair Training: Handrails/: 1 handrail #of Steps: 8 Stairs: Pattern: Step to Level of Assist: 5 Educated pt. on safety concerns during stair activity. Therapist also educated pt. on sequence. Pt. daughter was in the room during treatment. Treatments Pt. transferred from bed and ambulated to therapy room. Pt. completed ascending and descending 8 stairs. Pt. then completed balance activity by standing and catching a ball outside JOSE by therapist. Pt. then ambulated back to room and left in bed with call light and all needs met. Assessment Current Status: Good Progress Pt. tolerated treatment well. Therapist noticed abdominal bleeding and notified the nurse immediately. Pt. will continue to benefit from therapy services to help with strength and balance. PT Short Term Goals Short Term Goals Time Frame: Feb 04, 2019 Transfers (B,C,W/C) (FIM): 4 (met) Gait (FIM): 1 (met) Gait Distance Comment: 20' Gait Level of Assist: 3 Gait Assistive Device: Walker Henry Wheelchair Distance: 80' PT Senior Cytogenetics Laboratory Director Goals Senior Cytogenetics Laboratory Director Goals PT Retirement Goals Time Frame: Feb 18, 2019 Transfers (B,C,W/C) (FIM): 4 Sit to Lying (QC): 4 Lying-Sitting on Side/Bed(QC): 4 Sit to Stand (QC): 4 Rollin Roll Left to Right (QC): 4 Chair/Low-ck-Acpzt Xfer(QC): 4 Car Transfer (QC): 4 Gait (FIM): 2 Distance: 50' Walk 10 feet (QC): 3 Walk 10ft-Uneven Surface(QC): 3 Walk 50ft with 2 Turns (QC): 3 Gait Level of Assist: 4 Gait Assistive Device: Cane Large Base Quad Wheelchair (FIM): 6 Distance: 150' Wheelchair Level of Assist: 6 Wheel 50 feet with 2 turns (QC: 6 Stairs (FIM): 1 # of Steps: 1 1 Step (curb) (QC): 3 Stairs Level Of Assist: 4 PT Plan Treatment/Plan Treatment Plan: Continue Plan of Care Treatment Plan: Bed Mobility, Concurrent Therapy, Education, Functional Activity Gifty, Functional Strength, Group Therapy, Gait, Safety, Therapeutic Exercise, Transfers Treatment Duration: Feb 18, 2019 Frequency: At least 5 of 7 days/Wk (IRF) Estimated Hrs Per Day: 1.5 hours per day Patient and/or Family Agrees t: Yes Safety Risks/Education Patient Education: Gait Training, Transfer Techniques, Steps, Safety Issues Teaching Recipient: Patient, Family Teaching Methods: Demonstration, Discussion Response to Teaching: Verbalize Understanding, Return Demonstration Time/GCodes Time In: 1300 Time Out: 1330 Total Billed Treatment Time: 30 Total Billed Treatment 1, GT, MANISHA Colvin Codes Necessary: JASMIN Calero ICE CREAM VENDOR Feb 10, 2019 15:02
--- NOTE | 2019-02-10 16:51 | NUR ---
PANEL INSTALLER met with patient to review team conference summary. Patient continues to make progress daily with PT, OT and ST. Patient has been upgraded to a regular diet consistency and urinary retention has resolved. However, patient currently requires standby assist for gait and transfers, min assist for lower body activities, cues for safety awareness, and is completing speech activities with 75% accuracy. Team is recommended patient be reevaluated at next team conference, patient and spouse are agreeable to this. PANEL INSTALLER encouraged patient to wear AFO as directed by therapy. PANEL INSTALLER will send updated clinical information to patients insurance provider tomorrow for continued stay review.
[2019-02-10 18:00] VITALS: BP 118/59
--- NOTE | 2019-02-10 18:00 | NUR ---
LOVENOX INJECTION SITE ON RIGHT ABDOMEN HAS OOZED THROUGHOUT DAY. MULTIPLE BANDAID AND THEN DRESSING CHANGES. NOW HAS PRESSURE DRESSING WITH ICE PACK OVER IT.
[2019-02-10] MEDS: TAMSULOSIN 0.4 MG (FLOMAX) CAP PO SCH (18:12)
[2019-02-10] MEDS: LIDOCAINE PATCH REMOVAL TP SCH (19:52)
[2019-02-10] MEDS: ATORVASTATIN 80 MG (LIPITOR) TABLET PO SCH (21:10)
[2019-02-11] MEDS: BETHANECHOL 25 MG (URECHOLINE) TAB PO SCH ×4 (05:53→20:35)
[2019-02-11] MEDS: FERROUS SULF 325 MG (IRON) TAB PO SCH (05:54)
--- NOTE | 2019-02-11 05:59 | NUR ---
Patient up to use the restroom. Blood draining from previous lovenox injection site on right lower abdomen. Patient cleaned up and a new pressure dressing applied.
[2019-02-11 06:12] VITALS: BP 134/74
[2019-02-11 08:00] VITALS: BP 124/69
--- NOTE | 2019-02-11 08:00 | NUR ---
TOLERATING REGULAR DIET WELL. NO NEW ISSUES OR COMPLAINTS.
[2019-02-11] MEDS: SERTRALINE 100 MG (ZOLOFT) TAB PO SCH (08:16)
[2019-02-11] MEDS: BISOPROLOL 5 MG TAB (ZEBETA) PO SCH (08:16)
[2019-02-11] MEDS: CLOPIDOGREL 75 MG (PLAVIX) TABLET PO SCH (08:16)
[2019-02-11] MEDS: amLODIPine 5 MG (NORVASC) TAB PO SCH (08:16)
[2019-02-11] MEDS: SODIUM CHLORIDE 1 GM TAB (NON-FORMULARY) PO SCH ×3 (08:16→20:36)
[2019-02-11] MEDS: SIMBRINZA PO SCH ×2 (08:23→20:35)
[2019-02-11] MEDS: prednisoLONE 1% OPTH (PRED FORTE) 5 ML BTL OS SCH ×4 (08:23→20:35)
[2019-02-11] MEDS: EYE PO SCH ×2 (08:23→20:35)
[2019-02-11] MEDS: ASPIRIN 81 MG CHEW (CHILDREN'S ASA) PO SCH (08:23)
[2019-02-11] MEDS: DICLOFENAC 1% GEL 100 GM (VOLTAREN) TUBE TOP SCH ×2 (08:25→19:35)
[2019-02-11] MEDS: POLYETHYLENE GLYCOL 17 GM (MIRALAX) PACK PO SCH ×2 (08:25→19:35)
[2019-02-11] MEDS: SENNA W/DOCUSATE (SENOKOT S) TABLET PO SCH ×2 (08:25→20:35)
[2019-02-11] MEDS: LIDOCAINE 4% (SALONPAS) PATCH TOP SCH (08:25)
--- NOTE | 2019-02-11 08:49 | PM&R Progress Note ---
Subjective HPI/CC On Admission Date Seen by Provider: Feb 11, 2019 Time Seen by Provider: 08:30 CC: Ischemic stroke HPI: This is a 63-year-old white male of Dr. Schultz who presented to via [facility] ER on 01/23/19 with abrupt onset of severe weakness on the right side underwent stroke workup and found to be a candidate for TPA then shipped to [facility] and subsequently underwent left carotid endarterectomy on 01/25/19 but still remains with right sided weakness with severe expressive aphasia. Reviewed the entire record at [facility] and reviewed his home medications and patient appears to be ready to start aggressive physical therapy in order regain function. His drove him from and reports that he did well on the trip. His sogpst-do-jnr is a nurse and she helped reviewed the discharge med list. He is currently on. Diet with nectar thickened liquids. CT scan via [facility] and [facility] showed a left ischemic process of the MCA distribution. During hospital course the he had no significant clinical decompensation. Patient requires inpatient rehabilitation with 24 hour physician supervision to monitor her labile blood pressure and monitor for any hemorrhagic residual from ischemic stroke that cannot be provided in any type of lower level of care. 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 Subjective/Events-last exam Pt doing very well. I assessed his walk with therapy and cane and doing extremely well and therapy concurs Talking more and more with 4 and 5 words together and answers are 98% during speech therapy exercise he was completing when I examined him Off balance a bit but therapy is working on fall prevention Stopped Lovenox since ambulating well Minimal assist in OT with dressing. Speech therapy approved regular diet. Intention is to go home at discharge and that is being set up very soon Reviewed therapy notes and meds and labs and vitals Review of Systems Neurological: Weakness, Numbness, Incoordination Objective Exam Vital Signs Vital Signs Date Time Temp Pulse Resp B/P (MAP) Pulse Ox O2 Delivery O2 Flow Rate FiO2 02/11/19 09:00 Room Air 02/11/19 06:12 97.6 60 20 134/74 (94) 97 Capillary Refill : General Appearance: No Apparent Distress, WD/WN, Chronically ill HEENT: PERRL/EOMI, Pharynx Normal, Other (right facial droop) Neck: Full Range of Motion, Normal Inspection, Non Tender, Supple, Other ( incision left neck intact) Respiratory: Chest Non Tender, Lungs Clear, Normal Breath Sounds, No Accessory Muscle Use, No Respiratory Distress Cardiovascular: Regular Rate, Rhythm, No Edema, No Gallop, No JVD, No Murmur, Normal Peripheral Pulses Gastrointestinal: Normal Bowel Sounds, No Organomegaly, No Pulsatile Mass, Non Tender, Soft Back: Normal Inspection, No CVA Tenderness, No Vertebral Tenderness Extremity: Normal Capillary Refill, Normal Inspection, Non Tender, No Calf Tenderness, No Pedal Edema, Other (limited ROM right side and mild deficit left) Neurologic/Psychiatric: Alert, Normal Mood/Affect, Abnormal radiographer mammographer II-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 FIM Transfers Therapy Code Descriptions/Definitions Functional [place] Measure: 0=Not Assessed/NA 4=Minimal Assistance 1=Total Assistance 5=Supervision or Setup 2=Maximal Assistance 6=Modified [place] 3=Moderate Assistance 7=Complete [place] Therapy Quality Codes: 6 Independent with activity with or without an assistive device 5 Patient requires set up or clean up by helper. Patient completes activity by themselves 4 Supervision or touching assist (CGA). [place] provide cues , steadying assist 3 The helper provides less than half the effort to complete the activity 2 The helper provides more than half the effort to complete the activity 1 Dependent. The helper does all the effort to complete an activity 7 Patient refused to complete or attempt activity 9 The patient did not perform the activity before the current illness or injury 88 Not attempted due to Medical conditions or safety concerns Mental Status/Objective Comprehension: 5 Expression: 1 Social Interaction: 5 Problem Solvin Memory: 5 ADL-Treatment Feedin Eating (QC): 5 Groomin (Set up to brush teeth and hair sitting in chair at sink.) Oral Hygiene (QC): 4 Bathin (CGA in stance for balance.) Bathing Location: L Arm, R Arm, L Upper Leg, R Upper Leg, L Lower Leg ( including foot), R Lower Leg (including foot), Chest, Abdomen, Buttocks, Perineal Area Shower/Bathe Self (QC): 4 Upper Extremity Dressin Upper Body Dressing (QC): 4 Lower Extremity Dressin (Pt. able to doff underwear and pants in stance over hips, and then sits to doff over feet. Able to doff shoes. Pt. is able to don underwear and pants over feet sitting, and then stands to clod puller hips. OT put elastic laces in shoes and pt. able to don them. OT adjusts them for him.) Lower Body Dressing (QC): 4 On/Off Footwear (QC): 4 Toiletin Toileting Hygiene (QC): 3 Toilet/Commode Transfer: 4 Toilet Transfer (QC): 4 Shower: 4 Assessment/Plan Assessment and Plan Assess & Plan/Chief Complaint Assessment: (1) Ischemic stroke 01/23/19 (2) S/P carotid endarterectomy 01/25/19 with no improvement in right sided weakness (3) PVD (peripheral vascular disease) (4) CAD (coronary artery disease) (5) Expressive aphasia- improved 02/02/19 (6) Right sided weakness (7) Anemia-iron def so starting iron 02/03/19 (8) Hypertension (9) S/P cataract extraction (10) Dysphagia (11) Hyperlipidemia (12) Constipation-resolved 01/29/19 after meds (13) Klinefelter syndrome (14) Received intravenous tissue plasminogen activator (tPA) in emergency department 01/23/19 at [facility] ER (15) Depression (16) Former smoker (17) Hyponatremia improved on salt tablets (18) DVT prophylaxis (19) Urinary retention-consulted Urology, appreciate recs (20) Lee catheter was in place now DC but back with urinary retention s/p cysto so placed on Urecholine with Flomax and DC Lee and that is working well and voiding normally Plan: Consult Dr Brantley for Urology is appreciated and urinary retention is being managed and now no catheter and voiding well DVT PPx with Heparin but then DC due to oozing so changed to Lovenox once daily then DC today, 02/10/19 due to bleeding and patient ambulating enough for DVT PPx naturally Monitor for pain Left cataract eye care with eye drops now completed visiting frequently and that is helping morale Improving with intensive therapies Reviewed PT/OT speech notes Add Iron therapy every other day to prevent constipation and he received his first dose 02/04/19 May be able to DC salt tablets in the future (1) Ischemic stroke (2) Anemia Assessment & Plan: Start iron therapy (3) Expressive aphasia (4) CAD (coronary artery disease) (5) Dysphagia (6) Hyperlipidemia (7) PVD (peripheral vascular disease) (8) Hypertension (9) Right sided weakness (10) Klinefelter syndrome (11) Constipation (12) Depression (13) Hyponatremia (14) DVT prophylaxis (15) Received intravenous tissue plasminogen activator (tPA) in emergency department (16) Urinary retention Assessment & Plan: Resolved (17) Lee catheter in place Assessment & Plan: Resolved (18) S/P carotid endarterectomy (19) S/P cataract extraction (20) Former smoker BOOGIE WHITTEN DO Feb 11, 2019 08:49
--- NOTE | 2019-02-11 09:21 | Speech Therapy Daily Note ---
Speech Daily Progress Note Subjective Date Seen by Provider: Feb 11, 2019 Time Seen by Provider: 00:30 The patient was resting in his bed after breakfast when I entered his room. Objective The patient completed confrontational naming tasks at 98% with verbal cues x3. Assessment Assessment Current Status: Good Progress Treatment Plan Continue Plan of Care Communication Comprehension: 5 Expression: 1 Social Cognition Social Interaction: 5 Problem Solvin Memory: 5 Speech Short Term Goals Short Term Goals Short Term Goals 1) The patient will demonstrate orientation to person, place time and situation with 75% accuracy provided with stimulation and choices. 2) The patient will demonstrate correct naming of ten functional simple items during therapy session. 3) The patient will vollow one-step verbal commands with mod verbal/visual cues with 80% accuracy. 4) The patient will tolerate least restrictive diet level without signs/ symptoms of aspiration. 5) The patient will utilize compensatory strategies as trained for safe oral intake at 90% given minimal cues. Speech Shaker Tender Goals Shaker Tender Goals 1) Patient will communicate basic wants and needs with 2-3 word phrases during therapy sessions. 2) Patient will maintain adequate nutrition/hydration via safe effective swallow function. Speech-Plan Patient/Family Goals Patient/Family Goals: The patient plans to return home with his and other family support post rehab. Treatment Plan Speech Therapy Treatment Plan: Continue Plan of Care The patient is progressing well as a result of skilled therapy. Treatment Duration: Feb 19, 2019 Frequency: 5 times per week Estimated Hrs Per Day: .5 hour per day Rehab Potential: Good Barriers to Learning: New onset CVA, moderate expressive aphasia Pt/Family Agrees to Plan: Yes Safety Risks/Education Teaching Recipient: Patient Teaching Methods: Discussion Response to Teaching: Verbalize Understanding Education Topics Provided: Continued safety of oral intake with the upgrade to regular diet level. Time Speech Therapy Time In: 08:15 Speech Therapy Time Out: 08:45 Total Billed Time: 30 Billed Treatment Time [address] Feb 11, 2019 09:21
--- NOTE | 2019-02-11 09:33 | Physical Therapy Daily Note ---
PT Daily Note-Current Subjective Pt laying Supine in bed upon arrival. Pt agrees to PT. Pain Location: No Pain Reported Mental Status Patient Orientation: Person, Place, Situation Transfers Therapy Code Descriptions/Definitions Functional [place] Measure: 0=Not Assessed/NA 4=Minimal Assistance 1=Total Assistance 5=Supervision or Setup 2=Maximal Assistance 6=Modified [place] 3=Moderate Assistance 7=Complete [place] Therapy Quality Codes: 6 Independent with activity with or without an assistive device 5 Patient requires set up or clean up by helper. Patient completes activity by themselves 4 Supervision or touching assist (CGA). [place] provide cues , steadying assist 3 The helper provides less than half the effort to complete the activity 2 The helper provides more than half the effort to complete the activity 1 Dependent. The helper does all the effort to complete an activity 7 Patient refused to complete or attempt activity 9 The patient did not perform the activity before the current illness or injury 88 Not attempted due to Medical conditions or safety concerns Scootin Sit to/from Stand: 5 Sit to Stand (QC): 5 Weight Bearing Right Lower Extremity: Right Full Weight Bearing Left Lower Extremity: Left Full Weight Bearing Gait Training Does the Patient Walk?: Yes Distance (FIM): 3=150 ft Distance: 150' Walk 10 feet (QC): 4 Walk 50 ft with 2 Turns(QC): 4 Walk 150 ft (QC): 4 Gait Level of Assist: 4 Gait Persons Needed: 1 Gait Assistive Device: Cane Large Base Quad Pt needs VC for reminder to chart picker R foot instead of drag it through. Stair Training Stair Training: Handrails/: 2 handrails #of Steps: 8 1 Step (curb) (QC): 4 4 Steps (QC): 4 Stairs: Pattern: Step to Level of Assist: 4 Pt completes 8 steps then short RB followed by 8 more steps. Pt needs VC for sequencing for safety. Exercises Seated Therapy Exercises: Ankle pumps, Long arc quads, Hip flexion, Kicking activity, Hip abd/add Seated Reps: 10 Treatments VICE PRESIDENT PROCESS assists pt with donning [facility] gown as well as donning shoes. Pt transfers from bed and ambulates in hallway. Pt uses NuStep for 10 WL 5 followed by short RB. Pt completes stairs and Seated EX. Pt returns to room ate end of tx to rest in recliner with all needs met. Assessment Current Status: Good Progress Pt demonstrates more fatigue and unsteadiness with mobility including stairs. PT Short Term Goals Short Term Goals Time Frame: Feb 04, 2019 Transfers (B,C,W/C) (FIM): 4 (met) Gait (FIM): 1 (met) Gait Distance Comment: 20' Gait Level of Assist: 3 Gait Assistive Device: Walker Henry Wheelchair Distance: 80' PT Thread Grinder Goals Residential Goals PT Residential Goals Time Frame: Feb 18, 2019 Transfers (B,C,W/C) (FIM): 4 Sit to Lying (QC): 4 Lying-Sitting on Side/Bed(QC): 4 Sit to Stand (QC): 4 Rollin Roll Left to Right (QC): 4 Chair/[id number]-[id number] Xfer(QC): 4 Car Transfer (QC): 4 Gait (FIM): 2 Distance: 50' Walk 10 feet (QC): 3 Walk 10ft-Uneven Surface(QC): 3 Walk 50ft with 2 Turns (QC): 3 Gait Level of Assist: 4 Gait Assistive Device: Cane Large Base Quad Wheelchair (FIM): 6 Distance: 150' Wheelchair Level of Assist: 6 Wheel 50 feet with 2 turns (QC: 6 Stairs (FIM): 1 # of Steps: 1 1 Step (curb) (QC): 3 Stairs Level Of Assist: 4 PT Plan Problem List Problem List: Safety, Balance Treatment/Plan Treatment Plan: Continue Plan of Care Treatment Plan: Bed Mobility, Concurrent Therapy, Education, Functional Activity Gifty, Functional Strength, Group Therapy, Gait, Safety, Therapeutic Exercise, Transfers Treatment Duration: Feb 18, 2019 Frequency: At least 5 of 7 days/Wk (IRF) Estimated Hrs Per Day: 1.5 hours per day Patient and/or Family Agrees t: Yes Safety Risks/Education Patient Education: Gait Training, Steps, Correct Positioning, Safety Issues Teaching Recipient: Patient Teaching Methods: Discussion Response to Teaching: Verbalize Understanding Time/GCodes Time In: 900 Time Out: 945 Total Billed Treatment Time: 45 Total Billed Treatment 1, GT (15m), EX (15m) & FA (15m) G Codes Necessary: JASMIN Calero VICE PRESIDENT PROCESS Feb 11, 2019 09:33
--- NOTE | 2019-02-11 10:03 | NUR ---
DUANE sent clinical updates to patient's insurance provider requesting an additional 7 days. Addendum: 02/11/19 at 1412 by LUZ MARIA MAGUIRE DUANE received approval for the additional 7 days requested from insurance provider.
--- NOTE | 2019-02-11 10:52 | NUR ---
Pt anointed today by Fr Mat Fontenot. provided prayer and Communion.
--- NOTE | 2019-02-11 12:30 | NUR ---
RIGHT LOWER ABDOMEN DRESSING INTACT WITH ONLY A SMALL AMOUNT OF BLOOD ON IT (FROM POST LOVENOX INJECTION).
--- NOTE | 2019-02-11 13:03 | NUR ---
PT DIET ADVANCED TO REGULAR. PT EATING FAIRLY WELL, 78% MEALS. WEIGHT DOWN SOME SINCE ADMIT. WILL BEGIN ENLIVE TID TO INCREASE PO INTAKE.
--- NOTE | 2019-02-11 13:53 | Occupational Ther Daily Note ---
OT Current Status-Daily Note Subjective No pain reported. Pt. up in chair. Agrees to shower. Mental Status/Objective Patient Orientation: Person, Place Therapy Code Descriptions/Definitions Functional [place] Measure: 0=Not Assessed/NA 4=Minimal Assistance 1=Total Assistance 5=Supervision or Setup 2=Maximal Assistance 6=Modified [place] 3=Moderate Assistance 7=Complete [place] ADL-Treatment Therapy Code Descriptions/Definitions Functional [place] Measure: 0=Not Assessed/NA 4=Minimal Assistance 1=Total Assistance 5=Supervision or Setup 2=Maximal Assistance 6=Modified [place] 3=Moderate Assistance 7=Complete [place] Therapy Quality Codes: 6 Independent with activity with or without an assistive device 5 Patient requires set up or clean up by helper. Patient completes activity by themselves 4 Supervision or touching assist (CGA). [place] provide cues , steadying assist 3 The helper provides less than half the effort to complete the activity 2 The helper provides more than half the effort to complete the activity 1 Dependent. The helper does all the effort to complete an activity 7 Patient refused to complete or attempt activity 9 The patient did not perform the activity before the current illness or injury 88 Not attempted due to Medical conditions or safety concerns Grooming (FIM): 5 (Seated at sink to brush hair and teeth.) Oral Hygiene (QC): 4 Bathing (FIM): 4 (Pt. required CGA in stance at times for balance. Pt. impulsive with standing and attempting to wash self without holding grab bar.) Shower/Bathe Self (QC): 4 Upper Body (FIM): 5 Upper Body Dressing (QC): 4 Lower Body Dressing (FIM): 3 (Pt. did need assistance to don one shoe and sock , and to adjust underwear over feet.) Lower Body Dressing (QC): 3 On/Off Footwear (QC): 3 Transfers (B, C, W/C) (FIM): 4 Shower Transfer(FIM): 4 Other Treatment Pt. up in chair. Agrees to shower. After ADLs in bathroom, pt. ambulated with min assistance to therapy gym. Tolerated 10 minutes on armbike at min resistance with right hand romeo wrapped to armbike. Worked on increased overall endurance and strength. Pt. then participated in writing task for improved fine motor coordination, but then for improved communication. Pt. and OT went over history trivia, as pt. likes this. Pt. seemed to know the answer, but unable to state what it was. Pt. given paper and crayon. At first, attempted to use right hand. Unable to do so well, so instructed to use left hand to write the answer to some of the trivia questions. Pt. still unable to problem solve on his own what the answer was, but is able to attempt writing the word when it is given to him. Will continue to work on goals to address communication with aphasia. Ambulated back to room. All needs met. Education OT Patient Education: Correct positioning, Exercise program, Modified ADL techniques, Progress toward Goal/Update tx plan, Purpose of tx/functional activities, Reviewed precautions, Rehab process, Transfer techniques Teaching Recipient: Patient Teaching Methods: Demonstration, Discussion Response to Teaching: Verbalize Understanding, Return Demonstration OT Short Term Goals Short Term Goals Time Frame: Feb 11, 2019 Eating(FIM): 4 Grooming(FIM): 44 Bathing(FIM): 3 Upper Body Dressing(FIM): 3 Lower Body Dressing(FIM): 3 Toileting(FIM): 4 Transfers (B,C,W/C) (FIM): 4 (met) Toilet/Commode Transfer(FIM): 4 Shower Transfer(FIM): 4 Additional Short Term Goals: 1-Demonstrate ADL Tasks, 2-Verbalize Understanding , 3-ImproveStrength/Gifty 1=Demonstrate adherence to instructed precautions during ADL tasks. 2=Patient will verbalize/demonstrate understanding of assistive devices/ modifications for ADL. 3=Patient will improve strength/tolerance for activity to enable patient to perform ADL's. OT Long-Term Goals Long-Term Goals Time Frame: February 25, 2019 Eating (FIM): 6 Eating (QC): 6 Groomin Oral Hygiene (QC): 6 Bathing(FIM): 5 Shower/Bathe Self (QC): 5 Upper Body Dressing(FIM): 5 Upper Body Dressing (QC): 5 Lower Body Dressing(FIM): 5 Lower Body Dressing (QC): 5 On/Off Footwear (QC): 5 Toileting(FIM): 6 Toileting Hygiene (QC): 6 Transfers (B,C,W/C) (FIM): 6 Toilet/Commode Transfer(FIM): 6 Toilet/Commode Transfer (QC): 6 Shower Transfer(FIM): 5 Additional Goals: 1-Demonstrate ADL Tasks, 2-Verbalize Understanding, 3- ImproveStrength/Gifty 1=Demonstrate adherence to instructed precautions during ADL tasks. 2=Patient will verbalize/demonstrate understanding of assistive devices/ modifications for ADL. 3=Patient will improve strength/tolerance for activity to enable patient to perform ADL's. OT Education/Plan Problem List/Assessment Assessment: Decreased Activ Tolerance, Decreased UE Strength, Dependent Transfers, Impaired Cognition, Impaired Coordination, Impaired Funct Balance, Impaired I ADL's, Impaired Self-Care Skills, Restricted Funct UE ROM pt continue to make progress toward all OT goals. pt would benefit from additional OT services to maximize rehab potential and to increase overall independence with ADLS/ functional transfers. Discharge Recommendations Plan/Recommendations: Continue POC Therapy D/C Recommendations: Home w/ Family Support, Occupational Therapy Home Care Treatment Plan/Plan of Care Treatment,Training & Education: Yes Patient would benefit from OT for education, treatment and training to promote independence in ADL's, mobility, safety and/or upper extremity function for ADL' s. Plan of Care: ADL Retraining, Functional Mobility, Group Exercise/Act as Ind, UE Funct Exercise/Act Treatment Duration: February 25, 2019 Frequency: At least 5 of 7 days/Wk (IRF) Estimated Hrs Per Day: 1.5 hours per day Agreement: Yes Rehab Potential: Good Time/GCodes Start Time: 11:00 Stop Time: 11:50 Total Time Billed (hr/min): 50 Billed Treatment Time 1, ADL x 30minutes, FA x 20minutes PAULETTE HALL OT Feb 11, 2019 13:53
--- NOTE | 2019-02-11 14:23 | NUR ---
Assumed care of patient. Report rec'd from MUNDO Silva. Addendum: 02/11/19 at 1440 by TIKI COVARRUBIAS RN Actual time- 1330.
--- NOTE | 2019-02-11 15:05 | Therapy Group Daily Note ---
Therapy Daily Group Note Patient Education Topic Other List Below (ARU expectations and memory strategies) Exercises LE Seated Exercise, UE Exercise Session Ratio (pt:therapist): 4:1 Goal of Session: Education on ARU Expectations, Memory Strategies, UE/LE Strengthing Goal Met for this Session: Yes Pt Benefit of Group: Contributions to Others, Increased Functional Strength, Improved Cognition, Recognition of Peers, Socialization Other/Notes Pt ambulated to OT/PT group in [facility] area. Group consisted of introductions (name, place living, first pet), socialization, ARU expectations/ description, UE/LE seated exercises and memory game. Pt able to introduce self with one-two word answers then actively listened to peers. Pt acknowledged understanding of ARU by nodding head in affirmative. Pt able to complete UE/LE seated exercises without difficulty. Pt attempted to find matches during memory activity. Pt acknowledged understanding of memory strategies and gave own strategies as an example. All needs met in room. After therapy, pt lying in bed with call light/phone in reach. All needs met in room. Start Time: 13:00 Stop Time: 14:10 Total Billed Treatment Time: 70 Total Billed Treatment 1, JASMIN SIM PROTECTIVE SIGNAL REPAIRER Feb 11, 2019 15:05
[2019-02-11 15:43] VITALS: BP 121/65
[2019-02-11] MEDS: TAMSULOSIN 0.4 MG (FLOMAX) CAP PO SCH (17:16)
[2019-02-11] MEDS: LIDOCAINE PATCH REMOVAL TP SCH (19:35)
[2019-02-11] MEDS: ATORVASTATIN 80 MG (LIPITOR) TABLET PO SCH (20:35)
[2019-02-12 04:29] VITALS: BP 126/66
[2019-02-12] MEDS: BETHANECHOL 25 MG (URECHOLINE) TAB PO SCH ×4 (06:22→20:04)
[2019-02-12] MEDS: POLYETHYLENE GLYCOL 17 GM (MIRALAX) PACK PO SCH ×2 (08:03→19:35)
[2019-02-12] MEDS: BISOPROLOL 5 MG TAB (ZEBETA) PO SCH (08:38)
[2019-02-12] MEDS: CLOPIDOGREL 75 MG (PLAVIX) TABLET PO SCH (08:39)
[2019-02-12] MEDS: prednisoLONE 1% OPTH (PRED FORTE) 5 ML BTL OS SCH ×4 (08:39→20:05)
[2019-02-12] MEDS: SERTRALINE 100 MG (ZOLOFT) TAB PO SCH (08:39)
[2019-02-12] MEDS: EYE PO SCH ×2 (08:39→20:05)
[2019-02-12] MEDS: SENNA W/DOCUSATE (SENOKOT S) TABLET PO SCH ×2 (08:39→20:04)
[2019-02-12] MEDS: SIMBRINZA PO SCH ×2 (08:39→20:05)
[2019-02-12] MEDS: amLODIPine 5 MG (NORVASC) TAB PO SCH (08:39)
[2019-02-12] MEDS: ASPIRIN 81 MG CHEW (CHILDREN'S ASA) PO SCH (08:39)
[2019-02-12] MEDS: LIDOCAINE 4% (SALONPAS) PATCH TOP SCH (08:40)
[2019-02-12] MEDS: DICLOFENAC 1% GEL 100 GM (VOLTAREN) TUBE TOP SCH ×2 (08:40→19:34)
[2019-02-12] MEDS: SODIUM CHLORIDE 1 GM TAB (NON-FORMULARY) PO SCH ×2 (08:40→12:05)
--- NOTE | 2019-02-12 09:47 | Speech Therapy Daily Note ---
Speech Daily Progress Note Subjective Date Seen by Provider: Feb 12, 2019 Time Seen by Provider: 00:30 The patient was resting and watching television. He was alert and participated well. Objective The patient completed a q/a of general information cues at 75% with decreased cues. Assessment Assessment Current Status: Good Progress Treatment Plan Continue Plan of Care Communication Comprehension: 5 Expression: 1 Social Cognition Social Interaction: 5 Problem Solvin Memory: 5 Speech Short Term Goals Short Term Goals Short Term Goals 1) The patient will demonstrate orientation to person, place time and situation with 75% accuracy provided with stimulation and choices. 2) The patient will demonstrate correct naming of ten functional simple items during therapy session. 3) The patient will vollow one-step verbal commands with mod verbal/visual cues with 80% accuracy. 4) The patient will tolerate least restrictive diet level without signs/ symptoms of aspiration. 5) The patient will utilize compensatory strategies as trained for safe oral intake at 90% given minimal cues. Speech .Net Architect Goals .Net Architect Goals 1) Patient will communicate basic wants and needs with 2-3 word phrases during therapy sessions. 2) Patient will maintain adequate nutrition/hydration via safe effective swallow function. Speech-Plan Patient/Family Goals Patient/Family Goals: The patient plans on returning home with his post rehab with other family near for support. Treatment Plan Speech Therapy Treatment Plan: Continue Plan of Care The patient is progressing well as a result of skilled ST services. Treatment Duration: Feb 19, 2019 Frequency: 5 times per week Estimated Hrs Per Day: .5 hour per day Rehab Potential: Good Barriers to Learning: Recent CVA, moderate expressive aphasia Pt/Family Agrees to Plan: Yes Safety Risks/Education Teaching Recipient: Patient Teaching Methods: Discussion Response to Teaching: Verbalize Understanding Education Topics Provided: Communication of wants/needs with aids, call button Time Speech Therapy Time In: 08:30 Speech Therapy Time Out: 09:00 Total Billed Time: 30 Billed Treatment Time 1, EMILY Rivero Feb 12, 2019 09:47
--- NOTE | 2019-02-12 10:11 | Occupational Ther Daily Note ---
OT Current Status-Daily Note Subjective Pt alert, lying in bed. Pt agrees to therapy. No c/o pain at this time. Mental Status/Objective Patient Orientation: Person, Place, Non-Verbal/Aphasic, Time, Situation Therapy Code Descriptions/Definitions Functional [place] Measure: 0=Not Assessed/NA 4=Minimal Assistance 1=Total Assistance 5=Supervision or Setup 2=Maximal Assistance 6=Modified [place] 3=Moderate Assistance 7=Complete [place] ADL-Treatment Pt requested shower. Mod I bed mobility. CGA using quadcane to ambulate to bathroom. Therapy Code Descriptions/Definitions Functional [place] Measure: 0=Not Assessed/NA 4=Minimal Assistance 1=Total Assistance 5=Supervision or Setup 2=Maximal Assistance 6=Modified [place] 3=Moderate Assistance 7=Complete [place] Therapy Quality Codes: 6 Independent with activity with or without an assistive device 5 Patient requires set up or clean up by helper. Patient completes activity by themselves 4 Supervision or touching assist (CGA). [place] provide cues , steadying assist 3 The helper provides less than half the effort to complete the activity 2 The helper provides more than half the effort to complete the activity 1 Dependent. The helper does all the effort to complete an activity 7 Patient refused to complete or attempt activity 9 The patient did not perform the activity before the current illness or injury 88 Not attempted due to Medical conditions or safety concerns Grooming (FIM): 5 (SBA standing at sink to complete grooming.) Oral Hygiene (QC): 4 Bathing (FIM): 5 (SBA using grabbars, hand held shower and shower bench. Pt able to complete most of bathing sitting on bench. Stood using grabbars for stability while cleansing buttocks/justina area.) Bathing Location: L Arm, R Arm, L Upper Leg, R Upper Leg, L Lower Leg ( including foot), R Lower Leg (including foot), Chest, Abdomen, Buttocks, Perineal Area Shower/Bathe Self (QC): 4 Upper Body (FIM): 5 (Pt chose clothing. Pt able to complete upper body dressing.) Upper Body Dressing (QC): 5 Lower Body Dressing (FIM): 4 (Pt able to don/doff pants/underpants with SBA for safety. Pt continues to work on donning socks. Doffs by self. Assist to don shoes.) Lower Body Dressing (QC): 3 On/Off Footwear (QC): 3 Shower Transfer(FIM): 4 (CGA for safety using quadcane, grabbars and shower bench.) Other Treatment Pt ambulated to therapy gym using quadcane. Completed UE exercises to increase strength for daily functional tasks. Hand wts (1# R hand, 4# L hand) 1 set 15 reps-biceps, lateral shldr, forward raises. Then picking wt's off of ground to lift over head alternating UE's, 5x's. ROM arc completed with R hand 2x's, nut/ bolt activity using B hands to complete. After therapy, pt sitting in recliner with call light/phone in reach. All needs met in room. OT Short Term Goals Short Term Goals Time Frame: Feb 11, 2019 Eating(FIM): 4 Grooming(FIM): 44 Bathing(FIM): 3 Upper Body Dressing(FIM): 3 Lower Body Dressing(FIM): 3 Toileting(FIM): 4 Transfers (B,C,W/C) (FIM): 4 (met) Toilet/Commode Transfer(FIM): 4 Shower Transfer(FIM): 4 Additional Short Term Goals: 1-Demonstrate ADL Tasks, 2-Verbalize Understanding , 3-ImproveStrength/Gifty 1=Demonstrate adherence to instructed precautions during ADL tasks. 2=Patient will verbalize/demonstrate understanding of assistive devices/ modifications for ADL. 3=Patient will improve strength/tolerance for activity to enable patient to perform ADL's. OT Assisted Goals Assisted Goals Time Frame: February 25, 2019 Eating (FIM): 6 Eating (QC): 6 Groomin Oral Hygiene (QC): 6 Bathing(FIM): 5 Shower/Bathe Self (QC): 5 Upper Body Dressing(FIM): 5 Upper Body Dressing (QC): 5 Lower Body Dressing(FIM): 5 Lower Body Dressing (QC): 5 On/Off Footwear (QC): 5 Toileting(FIM): 6 Toileting Hygiene (QC): 6 Transfers (B,C,W/C) (FIM): 6 Toilet/Commode Transfer(FIM): 6 Toilet/Commode Transfer (QC): 6 Shower Transfer(FIM): 5 Additional Goals: 1-Demonstrate ADL Tasks, 2-Verbalize Understanding, 3- ImproveStrength/Gifty 1=Demonstrate adherence to instructed precautions during ADL tasks. 2=Patient will verbalize/demonstrate understanding of assistive devices/ modifications for ADL. 3=Patient will improve strength/tolerance for activity to enable patient to perform ADL's. OT Education/Plan Problem List/Assessment Assessment: Decreased UE Strength, Impaired Self-Care Skills, Restricted Funct UE ROM pt continue to make progress toward all OT goals. pt would benefit from additional OT services to maximize rehab potential and to increase overall independence with ADLS/ functional transfers. Discharge Recommendations Plan/Recommendations: Continue POC Treatment Plan/Plan of Care Patient would benefit from OT for education, treatment and training to promote independence in ADL's, mobility, safety and/or upper extremity function for ADL' s. Plan of Care: ADL Retraining, Functional Mobility, Group Exercise/Act as Ind, UE Funct Exercise/Act Treatment Duration: February 25, 2019 Frequency: At least 5 of 7 days/Wk (IRF) Estimated Hrs Per Day: 1.5 hours per day Agreement: Yes Rehab Potential: Good Time/GCodes Start Time: 09:00 Stop Time: 10:15 Total Time Billed (hr/min): 75 Billed Treatment Time 1 visit-ADL 2 (35 min) EX 3 (40 min) SHASHI SIMS Feb 12, 2019 10:11
--- NOTE | 2019-02-12 10:34 | PM&R Progress Note ---
Subjective HPI/CC On Admission Date Seen by Provider: Feb 12, 2019 Time Seen by Provider: 09:45 CC: Ischemic stroke HPI: This is a 63-year-old white male of Dr. Schultz who presented to via [facility] ER on 01/23/19 with abrupt onset of severe weakness on the right side underwent stroke workup and found to be a candidate for TPA then shipped to [facility] and subsequently underwent left carotid endarterectomy on 01/25/19 but still remains with right sided weakness with severe expressive aphasia. Reviewed the entire record at [facility] and reviewed his home medications and patient appears to be ready to start aggressive physical therapy in order regain function. His drove him from and reports that he did well on the trip. His fbtjgq-xo-qyi is a nurse and she helped reviewed the discharge med list. He is currently on. Diet with nectar thickened liquids. CT scan via [facility] and [facility] showed a left ischemic process of the MCA distribution. During hospital course the he had no significant clinical decompensation. Patient requires inpatient rehabilitation with 24 hour physician supervision to monitor her labile blood pressure and monitor for any hemorrhagic residual from ischemic stroke that cannot be provided in any type of lower level of care. 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 Subjective/Events-last exam Patient dramatically improved every day I see him Talking more in full sentences No confusion Voiding well Bowels are moving Denies pain No bleeding problems Checked meds and labs Reviewed therapy notes Overall very optimistic Will return home with his Review of Systems General: Fatigue Neurological: Weakness, Numbness, Incoordination, Change in speech Objective Exam Vital Signs Vital Signs Date Time Temp Pulse Resp B/P (MAP) Pulse Ox O2 Delivery O2 Flow Rate FiO2 02/12/19 09:00 Room Air 02/12/19 04:29 98.0 65 20 126/66 (86) 96 Capillary Refill : General Appearance: No Apparent Distress, WD/WN, Chronically ill HEENT: PERRL/EOMI, Pharynx Normal, Other (right facial droop) Neck: Full Range of Motion, Normal Inspection, Non Tender, Supple, Other ( incision left neck intact) Respiratory: Chest Non Tender, Lungs Clear, Normal Breath Sounds, No Accessory Muscle Use, No Respiratory Distress Cardiovascular: Regular Rate, Rhythm, No Edema, No Gallop, No JVD, No Murmur, Normal Peripheral Pulses Gastrointestinal: Normal Bowel Sounds, No Organomegaly, No Pulsatile Mass, Non Tender, Soft Back: Normal Inspection, No CVA Tenderness, No Vertebral Tenderness Extremity: Normal Capillary Refill, Normal Inspection, Non Tender, No Calf Tenderness, No Pedal Edema, Other (limited ROM right side and mild deficit left) Neurologic/Psychiatric: Alert, Normal Mood/Affect, Abnormal industrial editor II-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 FIM Transfers Therapy Code Descriptions/Definitions Functional [place] Measure: 0=Not Assessed/NA 4=Minimal Assistance 1=Total Assistance 5=Supervision or Setup 2=Maximal Assistance 6=Modified [place] 3=Moderate Assistance 7=Complete [place] Therapy Quality Codes: 6 Independent with activity with or without an assistive device 5 Patient requires set up or clean up by helper. Patient completes activity by themselves 4 Supervision or touching assist (CGA). [place] provide cues , steadying assist 3 The helper provides less than half the effort to complete the activity 2 The helper provides more than half the effort to complete the activity 1 Dependent. The helper does all the effort to complete an activity 7 Patient refused to complete or attempt activity 9 The patient did not perform the activity before the current illness or injury 88 Not attempted due to Medical conditions or safety concerns Gait Training Does the Patient Walk?: Yes Distance (FIM): 1=up to 49 ft Gait Assistive Device: Cane Small Base Quad Mental Status/Objective Comprehension: 5 Expression: 1 Social Interaction: 5 Problem Solvin Memory: 5 ADL-Treatment Feedin Eating (QC): 5 Groomin (SBA standing at sink to complete grooming.) Oral Hygiene (QC): 4 Bathin (SBA using grabbars, hand held shower and shower bench. Pt able to complete most of bathing sitting on bench. Stood using grabbars for stability while cleansing buttocks/justina area.) Bathing Location: L Arm, R Arm, L Upper Leg, R Upper Leg, L Lower Leg ( including foot), R Lower Leg (including foot), Chest, Abdomen, Buttocks, Perineal Area Shower/Bathe Self (QC): 4 Upper Extremity Dressin (Pt chose clothing. Pt able to complete upper body dressing.) Upper Body Dressing (QC): 5 Lower Extremity Dressin (Pt able to don/doff pants/underpants with SBA for safety. Pt continues to work on donning socks. Doffs by self. Assist to don shoes.) Lower Body Dressing (QC): 3 On/Off Footwear (QC): 3 Toiletin Toileting Hygiene (QC): 3 Toilet/Commode Transfer: 4 Toilet Transfer (QC): 4 Shower: 4 (CGA for safety using quadcane, grabbars and shower bench.) Assessment/Plan Assessment and Plan Assess & Plan/Chief Complaint Assessment: (1) Ischemic stroke 01/23/19 (2) S/P carotid endarterectomy 01/25/19 with no improvement in right sided weakness (3) PVD (peripheral vascular disease) (4) CAD (coronary artery disease) (5) Expressive aphasia- improved 02/02/19 (6) Right sided weakness (7) Anemia-iron def so starting iron 02/03/19 (8) Hypertension (9) S/P cataract extraction (10) Dysphagia (11) Hyperlipidemia (12) Constipation-resolved 01/29/19 after meds (13) Klinefelter syndrome (14) Received intravenous tissue plasminogen activator (tPA) in emergency department 01/23/19 at [facility] ER (15) Depression (16) Former smoker (17) Hyponatremia improved on salt tablets (18) DVT prophylaxis (19) Urinary retention-consulted Urology, appreciate recs (20) Lee catheter was in place now DC but back with urinary retention s/p cysto so placed on Urecholine with Flomax and DC Lee and that is working well and voiding normally Plan: Patient doing extremely well Participating in all therapies as required Insurance approved 7 more days which will be asked him to just to get back to prior level of functioning Speech working with expressive aphasia May ultimately discontinue salt tablets and will start weaning today to 1 daily Blood pressure well controlled on Norvasc 5 MG (1) Ischemic stroke (2) Anemia Assessment & Plan: Start iron therapy (3) Expressive aphasia (4) CAD (coronary artery disease) (5) Dysphagia (6) Hyperlipidemia (7) PVD (peripheral vascular disease) (8) Hypertension (9) Right sided weakness (10) Klinefelter syndrome (11) Constipation (12) Depression (13) Hyponatremia (14) DVT prophylaxis (15) Received intravenous tissue plasminogen activator (tPA) in emergency department (16) Urinary retention Assessment & Plan: Resolved (17) Lee catheter in place Assessment & Plan: Resolved (18) S/P carotid endarterectomy (19) S/P cataract extraction (20) Former smoker BOOGIE WHITTEN DO Feb 12, 2019 10:34
--- NOTE | 2019-02-12 11:37 | Physical Therapy Daily Note ---
PT Daily Note-Current Subjective Pt sitting up in recliner upon arrival. Pt agrees to PT. Pain Location: No Pain Reported Mental Status Patient Orientation: Person, Place, Situation Transfers Therapy Code Descriptions/Definitions Functional [place] Measure: 0=Not Assessed/NA 4=Minimal Assistance 1=Total Assistance 5=Supervision or Setup 2=Maximal Assistance 6=Modified [place] 3=Moderate Assistance 7=Complete [place] Therapy Quality Codes: 6 Independent with activity with or without an assistive device 5 Patient requires set up or clean up by helper. Patient completes activity by themselves 4 Supervision or touching assist (CGA). [place] provide cues , steadying assist 3 The helper provides less than half the effort to complete the activity 2 The helper provides more than half the effort to complete the activity 1 Dependent. The helper does all the effort to complete an activity 7 Patient refused to complete or attempt activity 9 The patient did not perform the activity before the current illness or injury 88 Not attempted due to Medical conditions or safety concerns Scootin Sit to/from Stand: 5 Sit to Stand (QC): 5 Weight Bearing Right Lower Extremity: Right Full Weight Bearing Left Lower Extremity: Left Full Weight Bearing Gait Training Does the Patient Walk?: Yes Distance (FIM): 3=150 ft Distance: 150' Walk 10 feet (QC): 5 Walk 50 ft with 2 Turns(QC): 5 Walk 150 ft (QC): 5 Gait Level of Assist: 5 Gait Persons Needed: 1 Gait Assistive Device: Cane Large Base Quad NEWSPAPER COPY EDITOR stays at close SBA due to occasional LOB that pt self corrects. Wheelchair Training Does the Pt Use a Wheelchair?: No Stair Training Stair Training: Handrails/: 2 handrails #of Steps: 8 1 Step (curb) (QC): 4 4 Steps (QC): 4 12 Steps (QC): 4 Stairs: Pattern: Step to Level of Assist: 4 Pt completes 8 steps then short RB and another 8 steps. Exercises Seated Therapy Exercises: Ankle pumps, Long arc quads, Hip flexion, Kicking activity, Hamstring Curls, Hip abd/add Seated Reps: 10 NuStep Minutes: 15 NuStep Workload: 5 Treatments Pt transfers from Seated surface to standing. Pt uses NuStep for 15m at WL 5. Pt takes short RB before ambulating stairs and one short rest between each. Pt completes Seated Ex as well as Standing catching activity focused on balance outside JOSE. Pt completes car transfer and ambulation in hallway before returning to room to rest in recliner. Pt's family had ordered lunch previously and pt has all needs met. Assessment Current Status: Good Progress Pt is impulsive at times and is fatigued needing RB several times during tx. Pt is improving with stairs though. PT Short Term Goals Short Term Goals Time Frame: Feb 04, 2019 Transfers (B,C,W/C) (FIM): 4 (met) Gait (FIM): 1 (met) Gait Distance Comment: 20' Gait Level of Assist: 3 Gait Assistive Device: Walker Henry Wheelchair Distance: 80' PT Rn Allergy Goals Fci Goals PT Rn Allergy Goals Time Frame: Feb 18, 2019 Transfers (B,C,W/C) (FIM): 4 Sit to Lying (QC): 4 Lying-Sitting on Side/Bed(QC): 4 Sit to Stand (QC): 4 Rollin Roll Left to Right (QC): 4 Chair/Tfw-vq-Nudnj Xfer(QC): 4 Car Transfer (QC): 4 Gait (FIM): 2 Distance: 50' Walk 10 feet (QC): 3 Walk 10ft-Uneven Surface(QC): 3 Walk 50ft with 2 Turns (QC): 3 Gait Level of Assist: 4 Gait Assistive Device: Cane Large Base Quad Wheelchair (FIM): 6 Distance: 150' Wheelchair Level of Assist: 6 Wheel 50 feet with 2 turns (QC: 6 Stairs (FIM): 1 # of Steps: 1 1 Step (curb) (QC): 3 Stairs Level Of Assist: 4 PT Plan Problem List Problem List: Activity Tolerance, Safety, Balance, Gait Treatment/Plan Treatment Plan: Continue Plan of Care Treatment Plan: Bed Mobility, Concurrent Therapy, Education, Functional Activity Gifty, Functional Strength, Group Therapy, Gait, Safety, Therapeutic Exercise, Transfers Treatment Duration: Feb 18, 2019 Frequency: At least 5 of 7 days/Wk (IRF) Estimated Hrs Per Day: 1.5 hours per day Patient and/or Family Agrees t: Yes Safety Risks/Education Patient Education: Gait Training, Transfer Techniques, Correct Positioning, Safety Issues Teaching Recipient: Patient Teaching Methods: Discussion Response to Teaching: Verbalize Understanding, Reinforcement Needed Time/GCodes Time In: 1030 Time Out: 1200 Total Billed Treatment Time: 90 Total Billed Treatment 1, GT x2 (25m), FA x2 (30m) & EX x2 (35m) G Codes Necessary: JASMIN Calero NEWSPAPER COPY EDITOR Feb 12, 2019 11:37
[2019-02-12 15:46] VITALS: BP 135/69
[2019-02-12] MEDS: TAMSULOSIN 0.4 MG (FLOMAX) CAP PO SCH (17:12)
[2019-02-12] MEDS: LIDOCAINE PATCH REMOVAL TP SCH (19:34)
[2019-02-12] MEDS: ATORVASTATIN 80 MG (LIPITOR) TABLET PO SCH (20:04)
[2019-02-13 06:25] VITALS: BP 128/68
[2019-02-13] MEDS: BETHANECHOL 25 MG (URECHOLINE) TAB PO SCH ×4 (06:29→20:59)
[2019-02-13] MEDS: FERROUS SULF 325 MG (IRON) TAB PO SCH (06:29)
[2019-02-13 08:00] VITALS: BP 111/66
--- NOTE | 2019-02-13 08:26 | Physical Therapy Daily Note ---
PT Daily Note-Current Subjective Pt in bed, agreeable to PT. Mental Status Patient Orientation: Person Transfers Therapy Code Descriptions/Definitions Functional [place] Measure: 0=Not Assessed/NA 4=Minimal Assistance 1=Total Assistance 5=Supervision or Setup 2=Maximal Assistance 6=Modified [place] 3=Moderate Assistance 7=Complete [place] Therapy Quality Codes: 6 Independent with activity with or without an assistive device 5 Patient requires set up or clean up by helper. Patient completes activity by themselves 4 Supervision or touching assist (CGA). [place] provide cues , steadying assist 3 The helper provides less than half the effort to complete the activity 2 The helper provides more than half the effort to complete the activity 1 Dependent. The helper does all the effort to complete an activity 7 Patient refused to complete or attempt activity 9 The patient did not perform the activity before the current illness or injury 88 Not attempted due to Medical conditions or safety concerns Supine to/from Sit: 5 Sit to/from Stand: 5 Sit to Stand (QC): 4 Weight Bearing Right Lower Extremity: Right Full Weight Bearing Left Lower Extremity: Left Full Weight Bearing Gait Training Does the Patient Walk?: Yes Gait (FIM): 5 Distance (FIM): 3=150 ft Distance: 150 Walk 10 feet (QC): 4 Walk 50 ft with 2 Turns(QC): 4 Walk 150 ft (QC): 4 Gait Level of Assist: 5 Gait Persons Needed: 1 Gait Assistive Device: Cane Large Base Quad Pt ambulated with close SBA with QC this date. No sandra LOB but Pt frequently drags (R) foot during swing phase. Stair Training Stair Training: Handrails/: 2 handrails Stairs (FIM): 2 #of Steps: 4 4 Steps (QC): 4 Stairs: Pattern: Step to Level of Assist: 5 Close SBA with VCS for sequencing Exercises NuStep Minutes: 10 NuStep Workload: 5 Treatments Gait training on level surface and stairs. NuStep for (B) UE/LE integration and functional activity tolerance. Returned to up in chair with alarm activated, needs met. Assessment Current Status: Good Progress Pt tolerated well. Mildly impulsive with approach to chairs but safe this date. Fall risk as he drags (R) foot frequently during swing. PT Short Term Goals Short Term Goals Time Frame: Feb 04, 2019 Transfers (B,C,W/C) (FIM): 4 (met) Gait (FIM): 1 (met) Gait Distance Comment: 20' Gait Level of Assist: 3 Gait Assistive Device: Walker Henry Wheelchair Distance: 80' PT Assisted Goals Assisted Goals PT Furnace Setter Goals Time Frame: Feb 18, 2019 Transfers (B,C,W/C) (FIM): 4 Sit to Lying (QC): 4 Lying-Sitting on Side/Bed(QC): 4 Sit to Stand (QC): 4 Rollin Roll Left to Right (QC): 4 Chair/Tjr-fa-Polxu Xfer(QC): 4 Car Transfer (QC): 4 Gait (FIM): 2 Distance: 50' Walk 10 feet (QC): 3 Walk 10ft-Uneven Surface(QC): 3 Walk 50ft with 2 Turns (QC): 3 Gait Level of Assist: 4 Gait Assistive Device: Cane Large Base Quad Wheelchair (FIM): 6 Distance: 150' Wheelchair Level of Assist: 6 Wheel 50 feet with 2 turns (QC: 6 Stairs (FIM): 1 # of Steps: 1 1 Step (curb) (QC): 3 Stairs Level Of Assist: 4 PT Plan Problem List Problem List: Activity Tolerance, Functional Strength, Safety, Balance, Gait, Transfer, Bed Mobility Treatment/Plan Treatment Plan: Continue Plan of Care Treatment Plan: Bed Mobility, Concurrent Therapy, Education, Functional Activity Gifty, Functional Strength, Group Therapy, Gait, Safety, Therapeutic Exercise, Transfers Treatment Duration: Feb 18, 2019 Frequency: At least 5 of 7 days/Wk (IRF) Estimated Hrs Per Day: 1.5 hours per day Patient and/or Family Agrees t: Yes Safety Risks/Education Patient Education: Gait Training Teaching Recipient: Patient Teaching Methods: Discussion Response to Teaching: Reinforcement Needed Time/GCodes Time In: 0756 Time Out: 0819 Total Billed Treatment Time: 23 Total Billed Treatment 1, GT x 13', Ex x 10' G Codes Necessary: LINDA Caruso DPT Feb 13, 2019 08:26
[2019-02-13] MEDS: CLOPIDOGREL 75 MG (PLAVIX) TABLET PO SCH (09:15)
[2019-02-13] MEDS: ASPIRIN 81 MG CHEW (CHILDREN'S ASA) PO SCH (09:15)
[2019-02-13] MEDS: SERTRALINE 100 MG (ZOLOFT) TAB PO SCH (09:15)
[2019-02-13] MEDS: BISOPROLOL 5 MG TAB (ZEBETA) PO SCH (09:15)
[2019-02-13] MEDS: amLODIPine 5 MG (NORVASC) TAB PO SCH (09:15)
[2019-02-13] MEDS: SIMBRINZA PO SCH ×2 (09:19→21:04)
[2019-02-13] MEDS: prednisoLONE 1% OPTH (PRED FORTE) 5 ML BTL OS SCH ×4 (09:19→21:07)
[2019-02-13] MEDS: EYE PO SCH ×2 (09:19→21:04)
[2019-02-13] MEDS: LIDOCAINE 4% (SALONPAS) PATCH TOP SCH (09:22)
[2019-02-13] MEDS: SENNA W/DOCUSATE (SENOKOT S) TABLET PO SCH ×2 (09:22→20:59)
[2019-02-13] MEDS: POLYETHYLENE GLYCOL 17 GM (MIRALAX) PACK PO SCH ×2 (09:23→21:06)
[2019-02-13] MEDS: DICLOFENAC 1% GEL 100 GM (VOLTAREN) TUBE TOP SCH ×2 (09:23→21:06)
[2019-02-13] MEDS: SODIUM CHLORIDE 1 GM TAB (NON-FORMULARY) PO SCH (11:18)
--- NOTE | 2019-02-13 11:47 | PM&R Progress Note ---
Subjective HPI/CC On Admission Date Seen by Provider: Feb 13, 2019 Time Seen by Provider: 11:00 CC: Ischemic stroke HPI: This is a 63-year-old white male of Dr. Schultz who presented to via [facility] ER on 01/23/19 with abrupt onset of severe weakness on the right side underwent stroke workup and found to be a candidate for TPA then shipped to [facility] and subsequently underwent left carotid endarterectomy on 01/25/19 but still remains with right sided weakness with severe expressive aphasia. Reviewed the entire record at [facility] and reviewed his home medications and patient appears to be ready to start aggressive physical therapy in order regain function. His drove him from and reports that he did well on the trip. His cjuwyg-tq-sfy is a nurse and she helped reviewed the discharge med list. He is currently on. Diet with nectar thickened liquids. CT scan via [facility] and [facility] showed a left ischemic process of the MCA distribution. During hospital course the he had no significant clinical decompensation. Patient requires inpatient rehabilitation with 24 hour physician supervision to monitor her labile blood pressure and monitor for any hemorrhagic residual from ischemic stroke that cannot be provided in any type of lower level of care. 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 Subjective/Events-last exam Patient dramatically improved every day I see him, at bedside today and she says the same thing. Ordered his own breakfast instead of auto tray today Talking more in full sentences and using more and more words No confusion noted and concurs Voiding well without caths Bowels are moving wel and do not require many meds Denies pain and has continued to be without pain Lovenox DC due to ambulating well Checked meds and labs and all deemed correct and necessary Reviewed therapy notes and he is improving by the day Overall very optimistic Will return home with his at end of IRF stay Review of Systems Neurological: Weakness, Numbness, Incoordination Objective Exam Vital Signs Vital Signs Date Time Temp Pulse Resp B/P (MAP) Pulse Ox O2 Delivery O2 Flow Rate FiO2 02/13/19 09:00 Room Air 02/13/19 06:25 97.9 63 20 128/68 (88) 97 Capillary Refill : General Appearance: No Apparent Distress, WD/WN, Chronically ill HEENT: PERRL/EOMI, Pharynx Normal, Other (right facial droop) Neck: Full Range of Motion, Normal Inspection, Non Tender, Supple, Other ( incision left neck intact) Respiratory: Chest Non Tender, Lungs Clear, Normal Breath Sounds, No Accessory Muscle Use, No Respiratory Distress Cardiovascular: Regular Rate, Rhythm, No Edema, No Gallop, No JVD, No Murmur, Normal Peripheral Pulses Gastrointestinal: Normal Bowel Sounds, No Organomegaly, No Pulsatile Mass, Non Tender, Soft Back: Normal Inspection, No CVA Tenderness, No Vertebral Tenderness Extremity: Normal Capillary Refill, Normal Inspection, Non Tender, No Calf Tenderness, No Pedal Edema, Other (limited ROM right side and mild deficit left) Neurologic/Psychiatric: Alert, Normal Mood/Affect, Abnormal ed manager II-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 FIM Transfers Therapy Code Descriptions/Definitions Functional [place] Measure: 0=Not Assessed/NA 4=Minimal Assistance 1=Total Assistance 5=Supervision or Setup 2=Maximal Assistance 6=Modified [place] 3=Moderate Assistance 7=Complete [place] Therapy Quality Codes: 6 Independent with activity with or without an assistive device 5 Patient requires set up or clean up by helper. Patient completes activity by themselves 4 Supervision or touching assist (CGA). [place] provide cues , steadying assist 3 The helper provides less than half the effort to complete the activity 2 The helper provides more than half the effort to complete the activity 1 Dependent. The helper does all the effort to complete an activity 7 Patient refused to complete or attempt activity 9 The patient did not perform the activity before the current illness or injury 88 Not attempted due to Medical conditions or safety concerns Gait Training Does the Patient Walk?: Yes Distance (FIM): 4=006-14 ft Gait Assistive Device: Cane Small Base Quad Wheelchair Training Does the Pt Use a Wheelchair?: No Mental Status/Objective Comprehension: 5 Expression: 1 Social Interaction: 5 Problem Solvin Memory: 5 ADL-Treatment Feedin Eating (QC): 5 Groomin (SBA standing at sink to complete grooming.) Oral Hygiene (QC): 4 Bathin (SBA using grabbars, hand held shower and shower bench. Pt able to complete most of bathing sitting on bench. Stood using grabbars for stability while cleansing buttocks/justina area.) Bathing Location: L Arm, R Arm, L Upper Leg, R Upper Leg, L Lower Leg ( including foot), R Lower Leg (including foot), Chest, Abdomen, Buttocks, Perineal Area Shower/Bathe Self (QC): 4 Upper Extremity Dressin (Pt chose clothing. Pt able to complete upper body dressing.) Upper Body Dressing (QC): 5 Lower Extremity Dressin (Pt able to don/doff pants/underpants with SBA for safety. Pt continues to work on donning socks. Doffs by self. Assist to don shoes.) Lower Body Dressing (QC): 3 On/Off Footwear (QC): 3 Toiletin Toileting Hygiene (QC): 3 Toilet/Commode Transfer: 4 Toilet Transfer (QC): 4 Shower: 4 (CGA for safety using quadcane, grabbars and shower bench.) Assessment/Plan Assessment and Plan Assess & Plan/Chief Complaint Assessment: (1) Ischemic stroke 01/23/19 (2) S/P carotid endarterectomy 01/25/19 with no improvement in right sided weakness (3) PVD (peripheral vascular disease) (4) CAD (coronary artery disease) (5) Expressive aphasia- improved 02/02/19 (6) Right sided weakness (7) Anemia-iron def so starting iron 02/03/19 (8) Hypertension (9) S/P cataract extraction (10) Dysphagia (11) Hyperlipidemia (12) Constipation-resolved 01/29/19 after meds (13) Klinefelter syndrome (14) Received intravenous tissue plasminogen activator (tPA) in emergency department 01/23/19 at [facility] ER (15) Depression (16) Former smoker (17) Hyponatremia improved on salt tablets (18) DVT prophylaxis (19) Urinary retention-consulted Urology, appreciate recs (20) Lee catheter was in place now DC but back with urinary retention s/p cysto so placed on Urecholine with Flomax and DC Lee and that is working well and voiding normally Plan: Patient doing extremely well Participating in all therapies as required Insurance approved 7 more days which will be asked him to just to get back to prior level of functioning Speech working with expressive aphasia May ultimately discontinue salt tablets and will start weaning today to 1 daily changed 02/12/19 Blood pressure well controlled on Norvasc 5 MG (1) Ischemic stroke (2) Anemia Assessment & Plan: Start iron therapy (3) Expressive aphasia (4) CAD (coronary artery disease) (5) Dysphagia (6) Hyperlipidemia (7) PVD (peripheral vascular disease) (8) Hypertension (9) Right sided weakness (10) Klinefelter syndrome (11) Constipation (12) Depression (13) Hyponatremia (14) DVT prophylaxis (15) Received intravenous tissue plasminogen activator (tPA) in emergency department (16) Urinary retention Assessment & Plan: Resolved (17) Lee catheter in place Assessment & Plan: Resolved (18) S/P carotid endarterectomy (19) S/P cataract extraction (20) Former smoker BOOGIE WHITTEN DO Feb 13, 2019 11:47
[2019-02-13 17:20] VITALS: BP 122/64
[2019-02-13] MEDS: TAMSULOSIN 0.4 MG (FLOMAX) CAP PO SCH (17:22)
--- NOTE | 2019-02-13 19:26 | NUR ---
bedside report received from EDWAR FLOWER, assume care of pt
[2019-02-13] MEDS: ATORVASTATIN 80 MG (LIPITOR) TABLET PO SCH (20:59)
--- NOTE | 2019-02-13 21:00 | NUR ---
assessments & interventions completed, see assessments & interventions, speech is clear but not always what pt wants to say, encouraged pt to keep trying as this staff sees improvement, pt refused miralax but took Senokot, pt refused Voltaren gel & had not lidocaine patch to remove
[2019-02-13] MEDS: LIDOCAINE PATCH REMOVAL TP SCH (21:12)
[2019-02-14] MEDS: BETHANECHOL 25 MG (URECHOLINE) TAB PO SCH ×4 (06:06→20:51)
[2019-02-14 06:13] VITALS: BP 148/75
--- NOTE | 2019-02-14 07:06 | NUR ---
bedside report given to EDWAR FLOWER
[2019-02-14 08:00] VITALS: BP 104/64
[2019-02-14] MEDS: ASPIRIN 81 MG CHEW (CHILDREN'S ASA) PO SCH (09:05)
[2019-02-14] MEDS: CLOPIDOGREL 75 MG (PLAVIX) TABLET PO SCH (09:05)
[2019-02-14] MEDS: BISOPROLOL 5 MG TAB (ZEBETA) PO SCH (09:05)
[2019-02-14] MEDS: amLODIPine 5 MG (NORVASC) TAB PO SCH (09:05)
[2019-02-14] MEDS: SERTRALINE 100 MG (ZOLOFT) TAB PO SCH (09:05)
[2019-02-14] MEDS: LIDOCAINE 4% (SALONPAS) PATCH TOP SCH (09:06)
[2019-02-14] MEDS: SODIUM CHLORIDE 1 GM TAB (NON-FORMULARY) PO SCH (09:06)
[2019-02-14] MEDS: DICLOFENAC 1% GEL 100 GM (VOLTAREN) TUBE TOP SCH ×2 (09:07→20:52)
[2019-02-14] MEDS: prednisoLONE 1% OPTH (PRED FORTE) 5 ML BTL OS SCH ×4 (09:07→20:51)
[2019-02-14] MEDS: POLYETHYLENE GLYCOL 17 GM (MIRALAX) PACK PO SCH ×2 (09:07→20:52)
[2019-02-14] MEDS: EYE PO SCH ×2 (09:08→20:51)
[2019-02-14] MEDS: SIMBRINZA PO SCH ×2 (09:08→20:51)
[2019-02-14] MEDS: SENNA W/DOCUSATE (SENOKOT S) TABLET PO SCH ×2 (09:09→20:51)
--- NOTE | 2019-02-14 11:24 | PM&R Progress Note ---
Subjective HPI/CC On Admission Date Seen by Provider: Feb 14, 2019 Time Seen by Provider: 08:30 CC: Ischemic stroke HPI: This is a 63-year-old white male of Dr. Schultz who presented to via [facility] ER on 01/23/19 with abrupt onset of severe weakness on the right side underwent stroke workup and found to be a candidate for TPA then shipped to [facility] and subsequently underwent left carotid endarterectomy on 01/25/19 but still remains with right sided weakness with severe expressive aphasia. Reviewed the entire record at [facility] and reviewed his home medications and patient appears to be ready to start aggressive physical therapy in order regain function. His drove him from and reports that he did well on the trip. His tjwlor-fr-eso is a nurse and she helped reviewed the discharge med list. He is currently on. Diet with nectar thickened liquids. CT scan via [facility] and [facility] showed a left ischemic process of the MCA distribution. During hospital course the he had no significant clinical decompensation. Patient requires inpatient rehabilitation with 24 hour physician supervision to monitor her labile blood pressure and monitor for any hemorrhagic residual from ischemic stroke that cannot be provided in any type of lower level of care. 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 Subjective/Events-last exam Patient dramatically improved every day I see him. Patient is sitting in chair today. Ordered his own breakfast instead of auto tray which started yesterday Talking more in full sentences and using more and more words with the help of speech therapy No confusion noted through the entire hospital course Voiding well without caths and maintained on bladder meds Bowels are moving well without meds Denies pain and walks well without leg pain Lovenox DC after 2 weeks maintained Checked meds and labs Reviewed therapy notes Overall very optimistic Will return home with his at end of IRF stay Review of Systems Neurological: Weakness, Numbness, Incoordination, Change in speech Objective Exam Vital Signs Vital Signs Date Time Temp Pulse Resp B/P (MAP) Pulse Ox O2 Delivery O2 Flow Rate FiO2 02/14/19 09:00 Room Air 02/14/19 06:13 97.5 56 18 148/75 (99) 99 Capillary Refill : General Appearance: No Apparent Distress, WD/WN, Chronically ill HEENT: PERRL/EOMI, Pharynx Normal, Other (right facial droop) Neck: Full Range of Motion, Normal Inspection, Non Tender, Supple, Other ( incision left neck intact) Respiratory: Chest Non Tender, Lungs Clear, Normal Breath Sounds, No Accessory Muscle Use, No Respiratory Distress Cardiovascular: Regular Rate, Rhythm, No Edema, No Gallop, No JVD, No Murmur, Normal Peripheral Pulses Gastrointestinal: Normal Bowel Sounds, No Organomegaly, No Pulsatile Mass, Non Tender, Soft Back: Normal Inspection, No CVA Tenderness, No Vertebral Tenderness Extremity: Normal Capillary Refill, Normal Inspection, Non Tender, No Calf Tenderness, No Pedal Edema, Other (limited ROM right side and mild deficit left) Neurologic/Psychiatric: Alert, Normal Mood/Affect, Abnormal coffee grinder II-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 FIM Transfers Therapy Code Descriptions/Definitions Functional [place] Measure: 0=Not Assessed/NA 4=Minimal Assistance 1=Total Assistance 5=Supervision or Setup 2=Maximal Assistance 6=Modified [place] 3=Moderate Assistance 7=Complete [place] Therapy Quality Codes: 6 Independent with activity with or without an assistive device 5 Patient requires set up or clean up by helper. Patient completes activity by themselves 4 Supervision or touching assist (CGA). [place] provide cues , steadying assist 3 The helper provides less than half the effort to complete the activity 2 The helper provides more than half the effort to complete the activity 1 Dependent. The helper does all the effort to complete an activity 7 Patient refused to complete or attempt activity 9 The patient did not perform the activity before the current illness or injury 88 Not attempted due to Medical conditions or safety concerns Gait Training Does the Patient Walk?: Yes Distance (FIM): [phone] ft Gait Assistive Device: FWW Wheelchair Training Does the Pt Use a Wheelchair?: No Mental Status/Objective Comprehension: 5 Expression: 1 Social Interaction: 5 Problem Solvin Memory: 5 ADL-Treatment Feedin Eating (QC): 5 Groomin (SBA standing at sink to complete grooming.) Oral Hygiene (QC): 4 Bathin (SBA using grabbars, hand held shower and shower bench. Pt able to complete most of bathing sitting on bench. Stood using grabbars for stability while cleansing buttocks/justina area.) Bathing Location: L Arm, R Arm, L Upper Leg, R Upper Leg, L Lower Leg ( including foot), R Lower Leg (including foot), Chest, Abdomen, Buttocks, Perineal Area Shower/Bathe Self (QC): 4 Upper Extremity Dressin (Pt chose clothing. Pt able to complete upper body dressing.) Upper Body Dressing (QC): 5 Lower Extremity Dressin (Pt able to don/doff pants/underpants with SBA for safety. Pt continues to work on donning socks. Doffs by self. Assist to don shoes.) Lower Body Dressing (QC): 3 On/Off Footwear (QC): 3 Toiletin Toileting Hygiene (QC): 3 Toilet/Commode Transfer: 4 Toilet Transfer (QC): 4 Shower: 4 (CGA for safety using quadcane, grabbars and shower bench.) Assessment/Plan Assessment and Plan Assess & Plan/Chief Complaint Assessment: (1) Ischemic stroke 01/23/19 (2) S/P carotid endarterectomy 01/25/19 with no improvement in right sided weakness (3) PVD (peripheral vascular disease) (4) CAD (coronary artery disease) (5) Expressive aphasia- improved 02/02/19 (6) Right sided weakness (7) Anemia-iron def so starting iron 02/03/19 (8) Hypertension (9) S/P cataract extraction (10) Dysphagia (11) Hyperlipidemia (12) Constipation-resolved 01/29/19 after meds (13) Klinefelter syndrome (14) Received intravenous tissue plasminogen activator (tPA) in emergency department 01/23/19 at [facility] ER (15) Depression (16) Former smoker (17) Hyponatremia improved on salt tablets (18) DVT prophylaxis (19) Urinary retention-consulted Urology, appreciate recs (20) Lee catheter was in place now DC but back with urinary retention s/p cysto so placed on Urecholine with Flomax and DC Lee and that is working well and voiding normally Plan: Patient doing extremely well Participating in all therapies as required Insurance approved 7 more days which will be asked him to just to get back to prior level of functioning Speech working with expressive aphasia May ultimately discontinue salt tablets and will start weaning today to 1 daily changed 02/12/19 Blood pressure well controlled on Norvasc 5 MG (1) Ischemic stroke (2) Anemia Assessment & Plan: Start iron therapy (3) Expressive aphasia (4) CAD (coronary artery disease) (5) Dysphagia (6) Hyperlipidemia (7) PVD (peripheral vascular disease) (8) Hypertension (9) Right sided weakness (10) Klinefelter syndrome (11) Constipation (12) Depression (13) Hyponatremia (14) DVT prophylaxis (15) Received intravenous tissue plasminogen activator (tPA) in emergency department (16) Urinary retention Assessment & Plan: Resolved (17) Lee catheter in place Assessment & Plan: Resolved (18) S/P carotid endarterectomy (19) S/P cataract extraction (20) Former smoker BOOGIE WHITTEN DO Feb 14, 2019 11:24
[2019-02-14] MEDS: TAMSULOSIN 0.4 MG (FLOMAX) CAP PO SCH (17:40)
[2019-02-14 17:55] VITALS: BP 138/73
--- NOTE | 2019-02-14 19:20 | NUR ---
bedside report received from EDWAR FLOWER, assume care of pt
[2019-02-14] MEDS: ATORVASTATIN 80 MG (LIPITOR) TABLET PO SCH (20:51)
[2019-02-14] MEDS: LIDOCAINE PATCH REMOVAL TP SCH (20:52)
--- NOTE | 2019-02-14 21:00 | NUR ---
assessments & interventions completed, see assessments & interventions, pt refused miralax , Voltaren gel & refused lidocaine patch this morning, up to bathroom with 1 person assist, cane & gait belt
[2019-02-15 05:31] VITALS: BP 120/70
[2019-02-15] MEDS: BETHANECHOL 25 MG (URECHOLINE) TAB PO SCH ×4 (06:10→20:02)
[2019-02-15] MEDS: FERROUS SULF 325 MG (IRON) TAB PO SCH (06:10)
--- NOTE | 2019-02-15 07:27 | NUR ---
bedside report given to LAURA FLOWER
--- NOTE | 2019-02-15 08:12 | PM&R Progress Note ---
Subjective HPI/CC On Admission Date Seen by Provider: Feb 15, 2019 Time Seen by Provider: 08:00 CC: Ischemic stroke HPI: This is a 63-year-old white male of Dr. Schultz who presented to via [facility] ER on 01/23/19 with abrupt onset of severe weakness on the right side underwent stroke workup and found to be a candidate for TPA then shipped to [facility] and subsequently underwent left carotid endarterectomy on 01/25/19 but still remains with right sided weakness with severe expressive aphasia. Reviewed the entire record at [facility] and reviewed his home medications and patient appears to be ready to start aggressive physical therapy in order regain function. His drove him from and reports that he did well on the trip. His ziuajq-pf-cfe is a nurse and she helped reviewed the discharge med list. He is currently on. Diet with nectar thickened liquids. CT scan via [facility] and [facility] showed a left ischemic process of the MCA distribution. During hospital course the he had no significant clinical decompensation. Patient requires inpatient rehabilitation with 24 hour physician supervision to monitor her labile blood pressure and monitor for any hemorrhagic residual from ischemic stroke that cannot be provided in any type of lower level of care. 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 Subjective/Events-last exam Pt having a good day expressive aphasia improving by the day. Heart rate remains 50-60. BP good at 120/70. Reviewed meds. Reviewed labs. Discharge home at time of therapy completion, with seems very reasonable. PCP Dr. Schultz will provide good follow-up. Will check labs in morning for regular monitoring and also to check sodium level since I have weaned salt tablets Review of Systems Neurological: Weakness, Numbness, Incoordination, Change in speech Objective Exam Vital Signs Vital Signs Date Time Temp Pulse Resp B/P (MAP) Pulse Ox O2 Delivery O2 Flow Rate FiO2 02/15/19 16:01 96.8 53 16 159/77 (104) 99 Room Air Capillary Refill : General Appearance: No Apparent Distress, WD/WN, Chronically ill HEENT: PERRL/EOMI, Pharynx Normal, Other (right facial droop) Neck: Full Range of Motion, Normal Inspection, Non Tender, Supple, Other ( incision left neck intact) Respiratory: Chest Non Tender, Lungs Clear, Normal Breath Sounds, No Accessory Muscle Use, No Respiratory Distress Cardiovascular: Regular Rate, Rhythm, No Edema, No Gallop, No JVD, No Murmur, Normal Peripheral Pulses Gastrointestinal: Normal Bowel Sounds, No Organomegaly, No Pulsatile Mass, Non Tender, Soft Back: Normal Inspection, No CVA Tenderness, No Vertebral Tenderness Extremity: Normal Capillary Refill, Normal Inspection, Non Tender, No Calf Tenderness, No Pedal Edema, Other (limited ROM right side and mild deficit left) Neurologic/Psychiatric: Alert, Normal Mood/Affect, Abnormal physician gynecologist II-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 FIM Transfers Therapy Code Descriptions/Definitions Functional [place] Measure: 0=Not Assessed/NA 4=Minimal Assistance 1=Total Assistance 5=Supervision or Setup 2=Maximal Assistance 6=Modified [place] 3=Moderate Assistance 7=Complete [place] Therapy Quality Codes: 6 Independent with activity with or without an assistive device 5 Patient requires set up or clean up by helper. Patient completes activity by themselves 4 Supervision or touching assist (CGA). [place] provide cues , steadying assist 3 The helper provides less than half the effort to complete the activity 2 The helper provides more than half the effort to complete the activity 1 Dependent. The helper does all the effort to complete an activity 7 Patient refused to complete or attempt activity 9 The patient did not perform the activity before the current illness or injury 88 Not attempted due to Medical conditions or safety concerns Mental Status/Objective Comprehension: 5 Expression: 1 Social Interaction: 5 Problem Solvin Memory: 5 ADL-Treatment Feedin Eating (QC): 5 Groomin (SBA standing at sink to complete grooming.) Oral Hygiene (QC): 4 Bathin (SBA using grabbars, hand held shower and shower bench. Pt able to complete most of bathing sitting on bench. Stood using grabbars for stability while cleansing buttocks/justina area.) Bathing Location: L Arm, R Arm, L Upper Leg, R Upper Leg, L Lower Leg ( including foot), R Lower Leg (including foot), Chest, Abdomen, Buttocks, Perineal Area Shower/Bathe Self (QC): 4 Upper Extremity Dressin (Pt chose clothing. Pt able to complete upper body dressing.) Upper Body Dressing (QC): 5 Lower Extremity Dressin (Pt able to don/doff pants/underpants with SBA for safety. Pt continues to work on donning socks. Doffs by self. Assist to don shoes.) Lower Body Dressing (QC): 3 On/Off Footwear (QC): 3 Toiletin Toileting Hygiene (QC): 3 Toilet/Commode Transfer: 4 Toilet Transfer (QC): 4 Shower: 4 (CGA for safety using quadcane, grabbars and shower bench.) Assessment/Plan Assessment and Plan Assess & Plan/Chief Complaint Assessment: (1) Ischemic stroke 01/23/19 (2) S/P carotid endarterectomy 01/25/19 with no improvement in right sided weakness (3) PVD (peripheral vascular disease) (4) CAD (coronary artery disease) (5) Expressive aphasia- improved 02/02/19 (6) Right sided weakness (7) Anemia-iron def so starting iron 02/03/19 (8) Hypertension (9) S/P cataract extraction (10) Dysphagia (11) Hyperlipidemia (12) Constipation-resolved 01/29/19 after meds (13) Klinefelter syndrome (14) Received intravenous tissue plasminogen activator (tPA) in emergency department 01/23/19 at [facility] ER (15) Depression (16) Former smoker (17) Hyponatremia improved on salt tablets and in process of weaning off (18) DVT prophylaxis (19) Urinary retention-consulted Urology, appreciate recs (20) Lee catheter was in place now DC but back with urinary retention s/p cysto so placed on Urecholine with Flomax and DC Lee and that is working well and voiding normally Plan: Patient doing extremely well Participating in all therapies as required Insurance approved 7 more days which will be asked him to just to get back to prior level of functioning Speech working with expressive aphasia May ultimately discontinue salt tablets and will start weaning today to 1 daily changed 02/12/19 Blood pressure well controlled on Norvasc 5 MG Check labs in morning for regular monitoring and check sodium level since weaning salt tablets (1) Ischemic stroke (2) Anemia Assessment & Plan: Start iron therapy (3) Expressive aphasia (4) CAD (coronary artery disease) (5) Dysphagia (6) Hyperlipidemia (7) PVD (peripheral vascular disease) (8) Hypertension (9) Right sided weakness (10) Klinefelter syndrome (11) Constipation (12) Depression (13) Hyponatremia (14) DVT prophylaxis (15) Received intravenous tissue plasminogen activator (tPA) in emergency department (16) Urinary retention Assessment & Plan: Resolved (17) Lee catheter in place Assessment & Plan: Resolved (18) S/P carotid endarterectomy (19) S/P cataract extraction (20) Former smoker BOOGIE WHITTEN DO Feb 15, 2019 08:12
[2019-02-15] MEDS: CLOPIDOGREL 75 MG (PLAVIX) TABLET PO SCH (08:34)
[2019-02-15] MEDS: BISOPROLOL 5 MG TAB (ZEBETA) PO SCH (08:34)
[2019-02-15] MEDS: amLODIPine 5 MG (NORVASC) TAB PO SCH (08:34)
[2019-02-15] MEDS: ASPIRIN 81 MG CHEW (CHILDREN'S ASA) PO SCH (08:34)
[2019-02-15] MEDS: SERTRALINE 100 MG (ZOLOFT) TAB PO SCH (08:34)
[2019-02-15] MEDS: prednisoLONE 1% OPTH (PRED FORTE) 5 ML BTL OS SCH ×4 (08:35→20:02)
[2019-02-15] MEDS: SIMBRINZA PO SCH ×2 (08:36→20:02)
[2019-02-15] MEDS: POLYETHYLENE GLYCOL 17 GM (MIRALAX) PACK PO SCH ×2 (08:36→20:02)
[2019-02-15] MEDS: EYE PO SCH ×2 (08:36→20:02)
[2019-02-15] MEDS: SENNA W/DOCUSATE (SENOKOT S) TABLET PO SCH ×2 (08:39→20:03)
[2019-02-15] MEDS: DICLOFENAC 1% GEL 100 GM (VOLTAREN) TUBE TOP SCH ×2 (08:40→20:03)
[2019-02-15] MEDS: LIDOCAINE 4% (SALONPAS) PATCH TOP SCH (08:40)
[2019-02-15] MEDS: SODIUM CHLORIDE 1 GM TAB (NON-FORMULARY) PO SCH (08:49)
--- NOTE | 2019-02-15 09:43 | Speech Therapy Daily Note ---
Speech Daily Progress Note Subjective Date Seen by Provider: Feb 15, 2019 Time Seen by Provider: 00:30 The patient was resting in his bed when I entered the room. Objective The patient completed general information questions with 80% accuracy given minimal cues. Assessment Assessment Current Status: Good Progress Treatment Plan Continue Plan of Care Communication Comprehension: 5 Expression: 1 Social Cognition Social Interaction: 5 Problem Solvin Memory: 5 Speech Short Term Goals Short Term Goals Short Term Goals 1) The patient will demonstrate orientation to person, place time and situation with 75% accuracy provided with stimulation and choices. 2) The patient will demonstrate correct naming of ten functional simple items during therapy session. 3) The patient will vollow one-step verbal commands with mod verbal/visual cues with 80% accuracy. 4) The patient will tolerate least restrictive diet level without signs/ symptoms of aspiration. 5) The patient will utilize compensatory strategies as trained for safe oral intake at 90% given minimal cues. Speech Shelter Goals Shelter Goals 1) Patient will communicate basic wants and needs with 2-3 word phrases during therapy sessions. 2) Patient will maintain adequate nutrition/hydration via safe effective swallow function. Speech-Plan Patient/Family Goals Patient/Family Goals: The patient plans on returning home with his post rehab. Treatment Plan Speech Therapy Treatment Plan: Continue Plan of Care The patient continues to progress with vocalizations. Treatment Duration: Feb 19, 2019 Frequency: 5 times per week Estimated Hrs Per Day: .5 hour per day Rehab Potential: Good Barriers to Learning: New onset CVA, moderate expressive aphasia Pt/Family Agrees to Plan: Yes Safety Risks/Education Teaching Recipient: Patient Teaching Methods: Discussion Response to Teaching: Verbalize Understanding Education Topics Provided: Strategies for expressing his wants/needs Time Speech Therapy Time In: 08:30 Speech Therapy Time Out: 09:00 Total Billed Time: 30 Billed Treatment Time 1, EMILY Rivero Feb 15, 2019 09:43
--- NOTE | 2019-02-15 11:38 | Occupational Ther Daily Note ---
OT Current Status-Daily Note Subjective No pain reported. Appearance Pt. in bed. Agrees to shower at this time. Mental Status/Objective Patient Orientation: Person, Place Therapy Code Descriptions/Definitions Functional [place] Measure: 0=Not Assessed/NA 4=Minimal Assistance 1=Total Assistance 5=Supervision or Setup 2=Maximal Assistance 6=Modified [place] 3=Moderate Assistance 7=Complete [place] ADL-Treatment Therapy Code Descriptions/Definitions Functional [place] Measure: 0=Not Assessed/NA 4=Minimal Assistance 1=Total Assistance 5=Supervision or Setup 2=Maximal Assistance 6=Modified [place] 3=Moderate Assistance 7=Complete [place] Therapy Quality Codes: 6 Independent with activity with or without an assistive device 5 Patient requires set up or clean up by helper. Patient completes activity by themselves 4 Supervision or touching assist (CGA). [place] provide cues , steadying assist 3 The helper provides less than half the effort to complete the activity 2 The helper provides more than half the effort to complete the activity 1 Dependent. The helper does all the effort to complete an activity 7 Patient refused to complete or attempt activity 9 The patient did not perform the activity before the current illness or injury 88 Not attempted due to Medical conditions or safety concerns Grooming (FIM): 5 (Set up at sink to brush hair and teeth. Pt. is seated in chair.) Oral Hygiene (QC): 5 Bathing (FIM): 4 (CGA at times in stance in shower. Occassionally pt. will let go of grab bar during dynamic task, and will need assist to correct balance. ) Shower/Bathe Self (QC): 4 Upper Body (FIM): 5 Upper Body Dressing (QC): 4 Lower Body Dressing (FIM): 4 (Assist in stance to pull pants over hips.) Lower Body Dressing (QC): 4 On/Off Footwear (QC): 5 (Slipper socks only today.) Transfers (B, C, W/C) (FIM): 4 (CGA in stance at times for balance.) Shower Transfer(FIM): 4 After ADLs, pt. ambulated to therapy gym with quad cane and CGA. At first, pt. was able to hold onto armbike to propel, but then became tired and had difficulty holding onto it. OT applied romeo wrap to right hand to hold onto bike side. Pt. completed 10 minutes at mod resistance overall to increase shoulder ROM and overall endurance. After this, ambulated back to room with all needs met. Education OT Patient Education: Correct positioning, Exercise program, Modified ADL techniques, Progress toward Goal/Update tx plan, Purpose of tx/functional activities, Reviewed precautions, Rehab process, Transfer techniques Teaching Recipient: Patient Teaching Methods: Demonstration, Discussion Response to Teaching: Verbalize Understanding, Return Demonstration OT Short Term Goals Short Term Goals Time Frame: Feb 11, 2019 Eating(FIM): 4 Grooming(FIM): 44 Bathing(FIM): 3 Upper Body Dressing(FIM): 3 Lower Body Dressing(FIM): 3 Toileting(FIM): 4 Transfers (B,C,W/C) (FIM): 4 (met) Toilet/Commode Transfer(FIM): 4 Shower Transfer(FIM): 4 Additional Short Term Goals: 1-Demonstrate ADL Tasks, 2-Verbalize Understanding , 3-ImproveStrength/Gifty 1=Demonstrate adherence to instructed precautions during ADL tasks. 2=Patient will verbalize/demonstrate understanding of assistive devices/ modifications for ADL. 3=Patient will improve strength/tolerance for activity to enable patient to perform ADL's. OT Intermediate Goals Wool Grower Goals Time Frame: February 25, 2019 Eating (FIM): 6 Eating (QC): 6 Groomin Oral Hygiene (QC): 6 Bathing(FIM): 5 Shower/Bathe Self (QC): 5 Upper Body Dressing(FIM): 5 Upper Body Dressing (QC): 5 Lower Body Dressing(FIM): 5 Lower Body Dressing (QC): 5 On/Off Footwear (QC): 5 Toileting(FIM): 6 Toileting Hygiene (QC): 6 Transfers (B,C,W/C) (FIM): 6 Toilet/Commode Transfer(FIM): 6 Toilet/Commode Transfer (QC): 6 Shower Transfer(FIM): 5 Additional Goals: 1-Demonstrate ADL Tasks, 2-Verbalize Understanding, 3- ImproveStrength/Gifty 1=Demonstrate adherence to instructed precautions during ADL tasks. 2=Patient will verbalize/demonstrate understanding of assistive devices/ modifications for ADL. 3=Patient will improve strength/tolerance for activity to enable patient to perform ADL's. OT Education/Plan Problem List/Assessment Assessment: Decreased Activ Tolerance, Decreased UE Strength, Dependent Transfers, Impaired Bed Mobility, Impaired Funct Balance, Impaired I ADL's, Impaired Self-Care Skills, Restricted Funct UE ROM pt continue to make progress toward all OT goals. pt would benefit from additional OT services to maximize rehab potential and to increase overall independence with ADLS/ functional transfers. Discharge Recommendations Plan/Recommendations: Continue POC Therapy D/C Recommendations: Home w/ Family Support, Occupational Therapy Home Care Treatment Plan/Plan of Care Treatment,Training & Education: Yes Patient would benefit from OT for education, treatment and training to promote independence in ADL's, mobility, safety and/or upper extremity function for ADL' s. Plan of Care: ADL Retraining, Functional Mobility, Group Exercise/Act as Ind, UE Funct Exercise/Act Treatment Duration: February 25, 2019 Frequency: At least 5 of 7 days/Wk (IRF) Estimated Hrs Per Day: 1.5 hours per day Agreement: Yes Rehab Potential: Good Time/GCodes Start Time: 09:15 Stop Time: 10:00 Total Time Billed (hr/min): 45 Billed Treatment Time 1, ADL x 30minutes, Ex x 15minutes PAULETTE HALL OT Feb 15, 2019 11:38
--- NOTE | 2019-02-15 15:19 | Occupational Ther Daily Note ---
OT Current Status-Daily Note Subjective No pain reported. Appearance Pt. up in chair. Agrees to work with therapy. Mental Status/Objective Patient Orientation: Person, Place Therapy Code Descriptions/Definitions Functional [place] Measure: 0=Not Assessed/NA 4=Minimal Assistance 1=Total Assistance 5=Supervision or Setup 2=Maximal Assistance 6=Modified [place] 3=Moderate Assistance 7=Complete [place] ADL-Treatment Therapy Code Descriptions/Definitions Functional [place] Measure: 0=Not Assessed/NA 4=Minimal Assistance 1=Total Assistance 5=Supervision or Setup 2=Maximal Assistance 6=Modified [place] 3=Moderate Assistance 7=Complete [place] Therapy Quality Codes: 6 Independent with activity with or without an assistive device 5 Patient requires set up or clean up by helper. Patient completes activity by themselves 4 Supervision or touching assist (CGA). [place] provide cues , steadying assist 3 The helper provides less than half the effort to complete the activity 2 The helper provides more than half the effort to complete the activity 1 Dependent. The helper does all the effort to complete an activity 7 Patient refused to complete or attempt activity 9 The patient did not perform the activity before the current illness or injury 88 Not attempted due to Medical conditions or safety concerns Transfers (B, C, W/C) (FIM): 4 (CGA to ambulate with quad cane to therapy gym.) Pt. ambulated to therapy gym with CGA and quad cane. Cues to slow down and ambulate with quality movement. Worked on fine motor coordination and strength for right handed weakness. Attempted to use tweezers to picker beans but unable to manipulate them well. OT then asked pt. to use just his fingers to picker beans for pincer addiction specialist. Pt. able to do this somewhat, but did have some difficulty. OT provided therapy clothespins with varying resistance. Pt. able to use lateral pinch to open and close them. Increased time needed. Noted increased strength and movement overall. Tolerated well. All needs met back in room. Education OT Patient Education: Correct positioning, Exercise program, Modified ADL techniques, Progress toward Goal/Update tx plan, Purpose of tx/functional activities, Reviewed precautions, Rehab process, Transfer techniques Teaching Recipient: Patient Teaching Methods: Demonstration, Discussion Response to Teaching: Verbalize Understanding, Return Demonstration OT Short Term Goals Short Term Goals Time Frame: Feb 11, 2019 Eating(FIM): 4 Grooming(FIM): 44 Bathing(FIM): 3 Upper Body Dressing(FIM): 3 Lower Body Dressing(FIM): 3 Toileting(FIM): 4 Transfers (B,C,W/C) (FIM): 4 (met) Toilet/Commode Transfer(FIM): 4 Shower Transfer(FIM): 4 Additional Short Term Goals: 1-Demonstrate ADL Tasks, 2-Verbalize Understanding , 3-ImproveStrength/Gifty 1=Demonstrate adherence to instructed precautions during ADL tasks. 2=Patient will verbalize/demonstrate understanding of assistive devices/ modifications for ADL. 3=Patient will improve strength/tolerance for activity to enable patient to perform ADL's. OT Cigar Machine Feeder Goals Assisted Goals Time Frame: February 25, 2019 Eating (FIM): 6 Eating (QC): 6 Groomin Oral Hygiene (QC): 6 Bathing(FIM): 5 Shower/Bathe Self (QC): 5 Upper Body Dressing(FIM): 5 Upper Body Dressing (QC): 5 Lower Body Dressing(FIM): 5 Lower Body Dressing (QC): 5 On/Off Footwear (QC): 5 Toileting(FIM): 6 Toileting Hygiene (QC): 6 Transfers (B,C,W/C) (FIM): 6 Toilet/Commode Transfer(FIM): 6 Toilet/Commode Transfer (QC): 6 Shower Transfer(FIM): 5 Additional Goals: 1-Demonstrate ADL Tasks, 2-Verbalize Understanding, 3- ImproveStrength/Gifty 1=Demonstrate adherence to instructed precautions during ADL tasks. 2=Patient will verbalize/demonstrate understanding of assistive devices/ modifications for ADL. 3=Patient will improve strength/tolerance for activity to enable patient to perform ADL's. OT Education/Plan Problem List/Assessment Assessment: Decreased Activ Tolerance, Decreased UE Strength, Dependent Transfers, Impaired Coordination, Impaired Funct Balance, Impaired I ADL's, Impaired Self-Care Skills, Restricted Funct UE ROM pt continue to make progress toward all OT goals. pt would benefit from additional OT services to maximize rehab potential and to increase overall independence with ADLS/ functional transfers. Discharge Recommendations Plan/Recommendations: Continue POC Therapy D/C Recommendations: Home w/ Family Support, Occupational Therapy Home Care Treatment Plan/Plan of Care Treatment,Training & Education: Yes Patient would benefit from OT for education, treatment and training to promote independence in ADL's, mobility, safety and/or upper extremity function for ADL' s. Plan of Care: ADL Retraining, Functional Mobility, Group Exercise/Act as Ind, UE Funct Exercise/Act Treatment Duration: February 25, 2019 Frequency: At least 5 of 7 days/Wk (IRF) Estimated Hrs Per Day: 1.5 hours per day Agreement: Yes Rehab Potential: Good Time/GCodes Start Time: 13:00 Stop Time: 13:30 Total Time Billed (hr/min): 30 Billed Treatment Time 1, FA x 2 PAULETTE HALL OT Feb 15, 2019 15:18
[2019-02-15 16:01] VITALS: BP 159/77
[2019-02-15] MEDS: TAMSULOSIN 0.4 MG (FLOMAX) CAP PO SCH (17:34)
[2019-02-15] MEDS: ATORVASTATIN 80 MG (LIPITOR) TABLET PO SCH (20:02)
[2019-02-15] MEDS: LIDOCAINE PATCH REMOVAL TP SCH (20:03)
[2019-02-16 04:58] LABS: BASOPHILS % (AUTO) 1 % (0-10); EOSINOPHILS % (AUTO) 3 % (0-10); HEMATOCRIT 32 % (40-54); HEMOGLOBIN 10.5 G/DL (13.3-17.7); LYMPHOCYTES # (AUTO) 1.3 X 10^3 (1.0-4.0); LYMPHOCYTES % (AUTO) 19 % (12-44); MEAN CORPUSCULAR HEMOGLOBIN 29 PG (25-34); MEAN CORPUSCULAR HGB CONC 33 G/DL (32-36); MEAN CORPUSCULAR VOLUME 90 FL (80-99); MEAN PLATELET VOLUME 9.5 FL (7.4-10.4); MONOCYTES # (AUTO) 0.7 X 10^3 (0.0-1.0); MONOCYTES % (AUTO) 10 % (0-12); NEUTROPHILS # (AUTO) 4.6 X 10^3 (1.8-7.8); NEUTROPHILS % (AUTO) 67 % (42-75); PLATELET COUNT 336 10^3/uL (130-400); RED CELL DISTRIBUTION WIDTH 13.8 % (10.0-14.5); WHITE BLOOD COUNT 6.9 10^3/uL (4.3-11.0)
[2019-02-16 04:59] LABS: BASOPHILS # (AUTO) 0.1 10^3/uL (0.0-0.1); EOSINOPHILS # (AUTO) 0.2 10^3/uL (0.0-0.3)
[2019-02-16 05:19] LABS: ALANINE AMINOTRANSFERASE 36 U/L (0-55); ALBUMIN 3.6 GM/DL (3.2-4.5); ALKALINE PHOSPHATASE 87 U/L (40-136); BILIRUBIN,TOTAL 0.3 MG/DL (0.1-1.0); BUN/CREATININE RATIO 15; CALCIUM 9.8 MG/DL (8.5-10.1); CARBON DIOXIDE 27 MMOL/L (21-32); CHLORIDE 109 MMOL/L (98-107); CREATININE SERUM 0.81 MG/DL (0.60-1.30); GFR ESTIMATED > 60; GLUCOSE 102 MG/DL (70-105); POTASSIUM 4.2 MMOL/L (3.6-5.0); SODIUM 144 MMOL/L (135-145); TOTAL PROTEIN 6.8 GM/DL (6.4-8.2)
[2019-02-16 05:42] VITALS: BP 124/66
[2019-02-16] MEDS: BETHANECHOL 25 MG (URECHOLINE) TAB PO SCH ×4 (06:33→20:57)
--- NOTE | 2019-02-16 08:25 | PM&R Progress Note ---
Subjective HPI/CC On Admission Date Seen by Provider: Feb 16, 2019 Time Seen by Provider: 08:30 CC: Ischemic stroke HPI: This is a 63-year-old white male of Dr. Schultz who presented to via [facility] ER on 01/23/19 with abrupt onset of severe weakness on the right side underwent stroke workup and found to be a candidate for TPA then shipped to [facility] and subsequently underwent left carotid endarterectomy on 01/25/19 but still remains with right sided weakness with severe expressive aphasia. Reviewed the entire record at [facility] and reviewed his home medications and patient appears to be ready to start aggressive physical therapy in order regain function. His drove him from and reports that he did well on the trip. His [id number] is a nurse and she helped reviewed the discharge med list. He is currently on. Diet with nectar thickened liquids. CT scan via [facility] and [facility] showed a left ischemic process of the MCA distribution. During hospital course the he had no significant clinical decompensation. Patient requires inpatient rehabilitation with 24 hour physician supervision to monitor her labile blood pressure and monitor for any hemorrhagic residual from ischemic stroke that cannot be provided in any type of lower level of care. 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 Subjective/Events-last exam Able to return back to bed from the toilet on his own earlier since he did not want to wait on the nurse. Sometimes he forgets he had a left hand when his hand is on the door when he opens the door Participating in all therapies. BP remains stable. Bowels are moving. Eating and drinking well. I witnessed him walking with standby assist with gate belt without cane today which was very exhilarating for the Pt. No falls reported but still a safety risk. Labs drawn today and all stable especially sodium since I have weaned him from TID to daily so likely will DC at time of DC completely Review of Systems General: Fatigue Neurological: Weakness, Numbness, Incoordination, Change in speech Objective Exam Vital Signs Vital Signs Date Time Temp Pulse Resp B/P (MAP) Pulse Ox O2 Delivery O2 Flow Rate FiO2 02/16/19 16:21 96.8 58 16 149/71 (97) 98 Room Air Capillary Refill : General Appearance: No Apparent Distress, WD/WN, Chronically ill HEENT: PERRL/EOMI, Pharynx Normal, Other (right facial droop) Neck: Full Range of Motion, Normal Inspection, Non Tender, Supple, Other ( incision left neck intact) Respiratory: Chest Non Tender, Lungs Clear, Normal Breath Sounds, No Accessory Muscle Use, No Respiratory Distress Cardiovascular: Regular Rate, Rhythm, No Edema, No Gallop, No JVD, No Murmur, Normal Peripheral Pulses Gastrointestinal: Normal Bowel Sounds, No Organomegaly, No Pulsatile Mass, Non Tender, Soft Back: Normal Inspection, No CVA Tenderness, No Vertebral Tenderness Extremity: Normal Capillary Refill, Normal Inspection, Non Tender, No Calf Tenderness, No Pedal Edema, Other (limited ROM right side and mild deficit left) Neurologic/Psychiatric: Alert, Normal Mood/Affect, 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 FIM Transfers Therapy Code Descriptions/Definitions Functional [place] Measure: 0=Not Assessed/NA 4=Minimal Assistance 1=Total Assistance 5=Supervision or Setup 2=Maximal Assistance 6=Modified [place] 3=Moderate Assistance 7=Complete [place] Therapy Quality Codes: 6 Independent with activity with or without an assistive device 5 Patient requires set up or clean up by helper. Patient completes activity by themselves 4 Supervision or touching assist (CGA). [place] provide cues , steadying assist 3 The helper provides less than half the effort to complete the activity 2 The helper provides more than half the effort to complete the activity 1 Dependent. The helper does all the effort to complete an activity 7 Patient refused to complete or attempt activity 9 The patient did not perform the activity before the current illness or injury 88 Not attempted due to Medical conditions or safety concerns Gait Training Does the Patient Walk?: Yes Distance (FIM): [phone] ft Gait Assistive Device: Cane Small Base Quad Mental Status/Objective Comprehension: 5 Expression: 1 Social Interaction: 5 Problem Solvin Memory: 5 ADL-Treatment Feedin Eating (QC): 5 Groomin (Set up at sink to brush hair and teeth. Pt. is seated in chair.) Oral Hygiene (QC): 5 Bathin (CGA at times in stance in shower. Occassionally pt. will let go of grab bar during dynamic task, and will need assist to correct balance.) Bathing Location: L Arm, R Arm, L Upper Leg, R Upper Leg, L Lower Leg ( including foot), R Lower Leg (including foot), Chest, Abdomen, Buttocks, Perineal Area Shower/Bathe Self (QC): 4 Upper Extremity Dressin Upper Body Dressing (QC): 4 Lower Extremity Dressin (Assist in stance to pull pants over hips.) Lower Body Dressing (QC): 4 On/Off Footwear (QC): 5 (Slipper socks only today.) Toiletin Toileting Hygiene (QC): 3 Toilet/Commode Transfer: 4 Toilet Transfer (QC): 4 Shower: 4 Assessment/Plan Assessment and Plan Assess & Plan/Chief Complaint Assessment: (1) Ischemic stroke 01/23/19 (2) S/P carotid endarterectomy 01/25/19 with no improvement in right sided weakness (3) PVD (peripheral vascular disease) (4) CAD (coronary artery disease) (5) Expressive aphasia- improved 02/02/19 (6) Right sided weakness (7) Anemia-iron def so starting iron 02/03/19 (8) Hypertension (9) S/P cataract extraction (10) Dysphagia (11) Hyperlipidemia (12) Constipation-resolved 01/29/19 after meds (13) Klinefelter syndrome (14) Received intravenous tissue plasminogen activator (tPA) in emergency department 01/23/19 at [facility] ER (15) Depression (16) Former smoker (17) Hyponatremia improved on salt tablets and in process of weaning off (18) DVT prophylaxis (19) Urinary retention-consulted Urology, appreciate recs (20) Lee catheter was in place now DC but back with urinary retention s/p cysto so placed on Urecholine with Flomax and DC Lee and that is working well and voiding normally Plan: Patient doing extremely well Participating in all therapies as required Insurance approved 7 more days which will be asked him to just to get back to prior level of functioning Speech working with expressive aphasia May ultimately discontinue salt tablets and will start weaning today to 1 daily changed 02/12/19 Blood pressure well controlled on Norvasc 5 MG Checked labs this morning for regular monitoring and checked sodium level since weaning salt tablets and all results normal (1) Ischemic stroke (2) Anemia Assessment & Plan: Start iron therapy (3) Expressive aphasia (4) CAD (coronary artery disease) (5) Dysphagia (6) Hyperlipidemia (7) PVD (peripheral vascular disease) (8) Hypertension (9) Right sided weakness (10) Klinefelter syndrome (11) Constipation (12) Depression (13) Hyponatremia (14) DVT prophylaxis (15) Received intravenous tissue plasminogen activator (tPA) in emergency department (16) Urinary retention Assessment & Plan: Resolved (17) Lee catheter in place Assessment & Plan: Resolved (18) S/P carotid endarterectomy (19) S/P cataract extraction (20) Former smoker BOOGIE WHITTEN DO Feb 16, 2019 08:25
[2019-02-16] MEDS: BISOPROLOL 5 MG TAB (ZEBETA) PO SCH (08:58)
[2019-02-16] MEDS: SERTRALINE 100 MG (ZOLOFT) TAB PO SCH (08:58)
[2019-02-16] MEDS: SENNA W/DOCUSATE (SENOKOT S) TABLET PO SCH ×3 (08:58→21:22)
[2019-02-16] MEDS: ASPIRIN 81 MG CHEW (CHILDREN'S ASA) PO SCH (08:59)
[2019-02-16] MEDS: amLODIPine 5 MG (NORVASC) TAB PO SCH (08:59)
[2019-02-16] MEDS: CLOPIDOGREL 75 MG (PLAVIX) TABLET PO SCH (08:59)
[2019-02-16] MEDS: POLYETHYLENE GLYCOL 17 GM (MIRALAX) PACK PO SCH ×2 (09:39→19:21)
[2019-02-16] MEDS: DICLOFENAC 1% GEL 100 GM (VOLTAREN) TUBE TOP SCH ×2 (09:40→20:58)
[2019-02-16] MEDS: SIMBRINZA PO SCH ×2 (09:41→20:57)
[2019-02-16] MEDS: EYE PO SCH ×2 (09:41→20:57)
[2019-02-16] MEDS: prednisoLONE 1% OPTH (PRED FORTE) 5 ML BTL OS SCH ×4 (09:41→20:57)
[2019-02-16] MEDS: LIDOCAINE 4% (SALONPAS) PATCH TOP SCH (09:41)
[2019-02-16] MEDS: SODIUM CHLORIDE 1 GM TAB (NON-FORMULARY) PO SCH (09:45)
--- NOTE | 2019-02-16 10:33 | Physical Therapy Daily Note ---
PT Daily Note-Current Subjective Jeff denies discomfort. Talking quietly and slowly basic responses. Pain Numeric Pain Scale: 0-No Pain Mental Status Patient Orientation: Person, Place, Situation Comprehension: 6 Transfers Therapy Code Descriptions/Definitions Functional [place] Measure: 0=Not Assessed/NA 4=Minimal Assistance 1=Total Assistance 5=Supervision or Setup 2=Maximal Assistance 6=Modified [place] 3=Moderate Assistance 7=Complete [place] Therapy Quality Codes: 6 Independent with activity with or without an assistive device 5 Patient requires set up or clean up by helper. Patient completes activity by themselves 4 Supervision or touching assist (CGA). [place] provide cues , steadying assist 3 The helper provides less than half the effort to complete the activity 2 The helper provides more than half the effort to complete the activity 1 Dependent. The helper does all the effort to complete an activity 7 Patient refused to complete or attempt activity 9 The patient did not perform the activity before the current illness or injury 88 Not attempted due to Medical conditions or safety concerns Weight Bearing Right Lower Extremity: Right Full Weight Bearing Left Lower Extremity: Left Full Weight Bearing Gait Training Does the Patient Walk?: Yes Distance: 150 ft, 2x without assistive device with CGAx1. Gait Persons Needed: 1 Gait Assistive Device: None Jeff aguirre without AD with CGA x1 and cues to even step lengths. By the end of the session he had fatigues and his R LE was less coordinated and he needed hand held assist for amb. Stair Training Stair Training: Handrails/: 2 handrails #of Steps: 12 Slowly amb up and down 4 steps 3x with both handrails, reciprocal gait pattern. Tends to land on heels when walking down steps. Exercises Supine Ex: LE Protocol, Bridging, Ankle pumps, Heel Slides, Knee to chest Seated Therapy Exercises: Sit to stand Standing: Dynamic Reaching Ex, Heel/toe raises, Marching, Mini squats, Retro gait, Side steps, Unilateral stance Neuromuscular Able to go from quadriped to tall kneeling to prone with CGA x 1. Stood while playing checkers, min assist to help pinch checkers. Seated rest breaks needed. Assessment Current Status: Excellent Progress When rested Jeff aguirre well without AD with CGA x1. By end of session he needed assist for balance due to fatigued R LE. PT Short Term Goals Short Term Goals Time Frame: Feb 04, 2019 Transfers (B,C,W/C) (FIM): 4 (met) Gait (FIM): 1 (met) Gait Distance Comment: 20' Gait Level of Assist: 3 Gait Assistive Device: Walker Henry Wheelchair Distance: 80' PT Penitentiary Goals Securities Broker Goals PT Penitentiary Goals Time Frame: Feb 18, 2019 Transfers (B,C,W/C) (FIM): 4 Sit to Lying (QC): 4 Lying-Sitting on Side/Bed(QC): 4 Sit to Stand (QC): 4 Rollin Roll Left to Right (QC): 4 Chair/[id number]-Yvpug Xfer(QC): 4 Car Transfer (QC): 4 Gait (FIM): 2 Distance: 50' Walk 10 feet (QC): 3 Walk 10ft-Uneven Surface(QC): 3 Walk 50ft with 2 Turns (QC): 3 Gait Level of Assist: 4 Gait Assistive Device: Cane Large Base Quad Wheelchair (FIM): 6 Distance: 150' Wheelchair Level of Assist: 6 Wheel 50 feet with 2 turns (QC: 6 Stairs (FIM): 1 # of Steps: 1 1 Step (curb) (QC): 3 Stairs Level Of Assist: 4 PT Plan Treatment/Plan Treatment Plan: Continue Plan of Care Treatment Plan: Bed Mobility, Concurrent Therapy, Education, Functional Activity Gifty, Functional Strength, Group Therapy, Gait, Safety, Therapeutic Exercise, Transfers Treatment Duration: Feb 18, 2019 Frequency: At least 5 of 7 days/Wk (IRF) Estimated Hrs Per Day: 1.5 hours per day Patient and/or Family Agrees t: Yes Time/GCodes Time In: 825 Time Out: 925 Total Billed Treatment Time: 60 Total Billed Treatment 1, gtx2, NM ex x 2 LING DE LA O PT Feb 16, 2019 10:32
--- NOTE | 2019-02-16 12:09 | Occupational Ther Daily Note ---
OT Current Status-Daily Note Subjective No pain reported. Appearance Pt. up in chair. Declines showering or changing clothes. Agrees to work with OT in therapy gym. Mental Status/Objective Patient Orientation: Person, Place Therapy Code Descriptions/Definitions Functional [place] Measure: 0=Not Assessed/NA 4=Minimal Assistance 1=Total Assistance 5=Supervision or Setup 2=Maximal Assistance 6=Modified [place] 3=Moderate Assistance 7=Complete [place] ADL-Treatment Therapy Code Descriptions/Definitions Functional [place] Measure: 0=Not Assessed/NA 4=Minimal Assistance 1=Total Assistance 5=Supervision or Setup 2=Maximal Assistance 6=Modified [place] 3=Moderate Assistance 7=Complete [place] Therapy Quality Codes: 6 Independent with activity with or without an assistive device 5 Patient requires set up or clean up by helper. Patient completes activity by themselves 4 Supervision or touching assist (CGA). [place] provide cues , steadying assist 3 The helper provides less than half the effort to complete the activity 2 The helper provides more than half the effort to complete the activity 1 Dependent. The helper does all the effort to complete an activity 7 Patient refused to complete or attempt activity 9 The patient did not perform the activity before the current illness or injury 88 Not attempted due to Medical conditions or safety concerns Transfers (B, C, W/C) (FIM): 4 (CGA to ambulate with quad cane to therapy gym. Better control and movements with ambulation noted today. One slight loss of balance in stance but pt able to correct self.) Pt. ambulated to therapy gym with quad cane. Tolerated 15 minutes on armbike at 15 minutes for increased ROM and strength. OT romeo wrapped right hand to bike for better positioning and grasp, due to decreased strength. After this task, pt. tolerated fine motor coordination tasks with nut/bolt activity. Pt. had difficulty raising right arm to take off/put on bolts, so OT modified it for him and pt. able to work on this at tabletop level. Demonstrates weak grasp and poor coordination, but this is improving. Noticing increased fluid speech as well. OT and pt. worked on trivia questions pertaining to things pt. is interested in, so that pt. could work on speech as well. After this task, pt. and OT completed bilateral coordination and reflex task with passing large ball back and forth. Pt. able to catch and release with no difficulty. Unable to translate ball back and forth between hands, but able to toss at OT. Went to kitchen and worked on retrieving items from high and low cabinets. Pt able to do this with cues for safety. Educated on proper way to use countertop as stability instead of cane, and how to transport items in kitchen. Tolerated this well. Ambulated back to room and all needs met. Education OT Patient Education: Correct positioning, Exercise program, Modified ADL techniques, Progress toward Goal/Update tx plan, Purpose of tx/functional activities, Reviewed precautions, Rehab process, Transfer techniques Teaching Recipient: Patient Teaching Methods: Demonstration Response to Teaching: Verbalize Understanding, Return Demonstration OT Short Term Goals Short Term Goals Time Frame: Feb 11, 2019 Eating(FIM): 4 Grooming(FIM): 44 Bathing(FIM): 3 Upper Body Dressing(FIM): 3 Lower Body Dressing(FIM): 3 Toileting(FIM): 4 Transfers (B,C,W/C) (FIM): 4 (met) Toilet/Commode Transfer(FIM): 4 Shower Transfer(FIM): 4 Additional Short Term Goals: 1-Demonstrate ADL Tasks, 2-Verbalize Understanding , 3-ImproveStrength/Gifty 1=Demonstrate adherence to instructed precautions during ADL tasks. 2=Patient will verbalize/demonstrate understanding of assistive devices/ modifications for ADL. 3=Patient will improve strength/tolerance for activity to enable patient to perform ADL's. OT Intermediate Goals Intermediate Goals Time Frame: February 25, 2019 Eating (FIM): 6 Eating (QC): 6 Groomin Oral Hygiene (QC): 6 Bathing(FIM): 5 Shower/Bathe Self (QC): 5 Upper Body Dressing(FIM): 5 Upper Body Dressing (QC): 5 Lower Body Dressing(FIM): 5 Lower Body Dressing (QC): 5 On/Off Footwear (QC): 5 Toileting(FIM): 6 Toileting Hygiene (QC): 6 Transfers (B,C,W/C) (FIM): 6 Toilet/Commode Transfer(FIM): 6 Toilet/Commode Transfer (QC): 6 Shower Transfer(FIM): 5 Additional Goals: 1-Demonstrate ADL Tasks, 2-Verbalize Understanding, 3- ImproveStrength/Gifty 1=Demonstrate adherence to instructed precautions during ADL tasks. 2=Patient will verbalize/demonstrate understanding of assistive devices/ modifications for ADL. 3=Patient will improve strength/tolerance for activity to enable patient to perform ADL's. OT Education/Plan Problem List/Assessment Assessment: Decreased Activ Tolerance, Decreased UE Strength, Impaired Coordination, Impaired I ADL's, Impaired Self-Care Skills, Restricted Funct UE ROM pt continue to make progress toward all OT goals. pt would benefit from additional OT services to maximize rehab potential and to increase overall independence with ADLS/ functional transfers. Discharge Recommendations Plan/Recommendations: Continue POC Therapy D/C Recommendations: Home w/ Family Support, Occupational Therapy Home Care Treatment Plan/Plan of Care Treatment,Training & Education: Yes Patient would benefit from OT for education, treatment and training to promote independence in ADL's, mobility, safety and/or upper extremity function for ADL' s. Plan of Care: ADL Retraining, Functional Mobility, Group Exercise/Act as Ind, UE Funct Exercise/Act Treatment Duration: February 25, 2019 Frequency: At least 5 of 7 days/Wk (IRF) Estimated Hrs Per Day: 1.5 hours per day Agreement: Yes Rehab Potential: Good Time/GCodes Start Time: 10:00 Stop Time: 11:00 Total Time Billed (hr/min): 60 Billed Treatment Time 1, Ex x 15minutes, FA x 45minutes PAULETTE HALL OT Feb 16, 2019 12:08
--- NOTE | 2019-02-16 13:18 | Speech Therapy Daily Note ---
Speech Daily Progress Note Subjective Date Seen by Provider: Feb 16, 2019 Time Seen by Provider: 00:30 The patient was sitting in his recliner, alert and oriented. Objective The patient completed single answers to general questions at 80% with min to mod verbal cues. Assessment Assessment Current Status: Good Progress Treatment Plan Continue Plan of Care Communication Comprehension: 6 Expression: 1 Social Cognition Social Interaction: 5 Problem Solvin Memory: 5 Speech Short Term Goals Short Term Goals Short Term Goals 1) The patient will demonstrate orientation to person, place time and situation with 75% accuracy provided with stimulation and choices. 2) The patient will demonstrate correct naming of ten functional simple items during therapy session. 3) The patient will vollow one-step verbal commands with mod verbal/visual cues with 80% accuracy. 4) The patient will tolerate least restrictive diet level without signs/ symptoms of aspiration. 5) The patient will utilize compensatory strategies as trained for safe oral intake at 90% given minimal cues. Speech Intermediate Goals Shank Archer Goals 1) Patient will communicate basic wants and needs with 2-3 word phrases during therapy sessions. 2) Patient will maintain adequate nutrition/hydration via safe effective swallow function. Speech-Plan Patient/Family Goals Patient/Family Goals: The patient plans to return to his home where he lives with his post rehab. Treatment Plan Speech Therapy Treatment Plan: Continue Plan of Care The patient is progressing as a result of skilled ST. Treatment Duration: Feb 19, 2019 Frequency: 5 times per week Estimated Hrs Per Day: .5 hour per day Rehab Potential: Good Barriers to Learning: New onset CVA, moderate expressive aphasia Pt/Family Agrees to Plan: Yes Safety Risks/Education Teaching Recipient: Patient Teaching Methods: Discussion Response to Teaching: Verbalize Understanding Education Topics Provided: Communication strategies. Time Speech Therapy Time In: 09:30 Speech Therapy Time Out: 10:00 Total Billed Time: 30 Billed Treatment Time 1, EMILY Rivero Feb 16, 2019 13:18
--- NOTE | 2019-02-16 13:30 | Occupational Ther Daily Note ---
OT Current Status-Daily Note Subjective No pain reported. Appearance Pt. up in chair. Agrees to treatment. Mental Status/Objective Patient Orientation: Person, Place Therapy Code Descriptions/Definitions Functional [place] Measure: 0=Not Assessed/NA 4=Minimal Assistance 1=Total Assistance 5=Supervision or Setup 2=Maximal Assistance 6=Modified [place] 3=Moderate Assistance 7=Complete [place] ADL-Treatment Therapy Code Descriptions/Definitions Functional [place] Measure: 0=Not Assessed/NA 4=Minimal Assistance 1=Total Assistance 5=Supervision or Setup 2=Maximal Assistance 6=Modified [place] 3=Moderate Assistance 7=Complete [place] Therapy Quality Codes: 6 Independent with activity with or without an assistive device 5 Patient requires set up or clean up by helper. Patient completes activity by themselves 4 Supervision or touching assist (CGA). [place] provide cues , steadying assist 3 The helper provides less than half the effort to complete the activity 2 The helper provides more than half the effort to complete the activity 1 Dependent. The helper does all the effort to complete an activity 7 Patient refused to complete or attempt activity 9 The patient did not perform the activity before the current illness or injury 88 Not attempted due to Medical conditions or safety concerns Transfers (B, C, W/C) (FIM): 4 (Min assist this afternoon to ambulate to therapy gym with quad cane. Pt. demonstrated more LOB in afternoon. Able to correct self.) Other Treatment Pt. given pool noodle to completed bilateral UE strength/ROM activities. Pt. worked on shoulder flexion, elbow flexion, wrist extension, horizontal abduction exercises. Overall, 6 exercises x 10 reps in all planes. Noted decreased movement in right shoulder and decreased strength. Pt. fatigues easy but does work hard. Pt. tolerated overall well. Ambulated back to room. Transferred to bed with SBA. All needs met in room. Education OT Patient Education: Exercise program, Modified ADL techniques, Progress toward Goal/Update tx plan, Purpose of tx/functional activities, Reviewed precautions, Rehab process, Transfer techniques Teaching Recipient: Patient Teaching Methods: Demonstration, Discussion Response to Teaching: Verbalize Understanding, Return Demonstration OT Short Term Goals Short Term Goals Time Frame: Feb 11, 2019 Eating(FIM): 4 Grooming(FIM): 44 Bathing(FIM): 3 Upper Body Dressing(FIM): 3 Lower Body Dressing(FIM): 3 Toileting(FIM): 4 Transfers (B,C,W/C) (FIM): 4 (met) Toilet/Commode Transfer(FIM): 4 Shower Transfer(FIM): 4 Additional Short Term Goals: 1-Demonstrate ADL Tasks, 2-Verbalize Understanding , 3-ImproveStrength/Gifty 1=Demonstrate adherence to instructed precautions during ADL tasks. 2=Patient will verbalize/demonstrate understanding of assistive devices/ modifications for ADL. 3=Patient will improve strength/tolerance for activity to enable patient to perform ADL's. OT Mcfp Goals Allergy And Immunology Specialist Goals Time Frame: February 25, 2019 Eating (FIM): 6 Eating (QC): 6 Groomin Oral Hygiene (QC): 6 Bathing(FIM): 5 Shower/Bathe Self (QC): 5 Upper Body Dressing(FIM): 5 Upper Body Dressing (QC): 5 Lower Body Dressing(FIM): 5 Lower Body Dressing (QC): 5 On/Off Footwear (QC): 5 Toileting(FIM): 6 Toileting Hygiene (QC): 6 Transfers (B,C,W/C) (FIM): 6 Toilet/Commode Transfer(FIM): 6 Toilet/Commode Transfer (QC): 6 Shower Transfer(FIM): 5 Additional Goals: 1-Demonstrate ADL Tasks, 2-Verbalize Understanding, 3- ImproveStrength/Gifty 1=Demonstrate adherence to instructed precautions during ADL tasks. 2=Patient will verbalize/demonstrate understanding of assistive devices/ modifications for ADL. 3=Patient will improve strength/tolerance for activity to enable patient to perform ADL's. OT Education/Plan Problem List/Assessment Assessment: Decreased UE Strength, Impaired Coordination, Impaired Funct Balance, Impaired I ADL's, Restricted Funct UE ROM pt continue to make progress toward all OT goals. pt would benefit from additional OT services to maximize rehab potential and to increase overall independence with ADLS/ functional transfers. Discharge Recommendations Plan/Recommendations: Continue POC Therapy D/C Recommendations: Home w/ Family Support, Occupational Therapy Home Care Treatment Plan/Plan of Care Treatment,Training & Education: Yes Patient would benefit from OT for education, treatment and training to promote independence in ADL's, mobility, safety and/or upper extremity function for ADL' s. Plan of Care: ADL Retraining, Functional Mobility, Group Exercise/Act as Ind, UE Funct Exercise/Act Treatment Duration: February 25, 2019 Frequency: At least 5 of 7 days/Wk (IRF) Estimated Hrs Per Day: 1.5 hours per day Agreement: Yes Rehab Potential: Good Time/GCodes Start Time: 13:05 Stop Time: 13:22 Total Time Billed (hr/min): 17 Billed Treatment Time 1, Ex PAULETTE HALL OT Feb 16, 2019 13:30
--- NOTE | 2019-02-16 13:51 | Physical Therapy Daily Note ---
PT Daily Note-Current Subjective Pt reports he is ready and agreeable to PT session Pain Numeric Pain Scale: 0-No Pain Appearance Pt sitting up in recliner upon arrival, awake and alert At end of session, pt sitting up in recliner with call light, phone and bedside table within reach Mental Status Patient Orientation: Person, Place, Time, Situation Transfers Therapy Code Descriptions/Definitions Functional [place] Measure: 0=Not Assessed/NA 4=Minimal Assistance 1=Total Assistance 5=Supervision or Setup 2=Maximal Assistance 6=Modified [place] 3=Moderate Assistance 7=Complete [place] Therapy Quality Codes: 6 Independent with activity with or without an assistive device 5 Patient requires set up or clean up by helper. Patient completes activity by themselves 4 Supervision or touching assist (CGA). [place] provide cues , steadying assist 3 The helper provides less than half the effort to complete the activity 2 The helper provides more than half the effort to complete the activity 1 Dependent. The helper does all the effort to complete an activity 7 Patient refused to complete or attempt activity 9 The patient did not perform the activity before the current illness or injury 88 Not attempted due to Medical conditions or safety concerns Transfers (B, C, W/C) (FIM): 5 Sit to/from Stand: 5 Pt demonstrating good technique with all sit to and from stand transfers from recliner and straight backed chair Weight Bearing Right Lower Extremity: Right Full Weight Bearing Left Lower Extremity: Left Full Weight Bearing Gait Training Does the Patient Walk?: Yes Gait (FIM): 5 Distance (FIM): 3=150 ft Distance: 350 Gait Level of Assist: 5 Gait Persons Needed: 1 Gait Assistive Device: Cane Small Base Quad occasional path deviation, decreased step height, occasional shuffling. No LOB. Good sequencing with cane Exercises Standing: Stepping over objects (//bars with and without UE support, fwd, L and R lateral) Standing Reps: 5 (stepping over 4 bars 10 x's fwd, 5 x's each L and R lateral) occasional LOB requiring assist with grabbing // bars when attempting without UE support, no physical assist from therapist to recover Treatments gait, transfer, balance, safety, fall recovery techniques, strengthening, activity tolerance, functional mobility, NM re ed Assessment Pt continuing to improve with gait quality, safety and balance PT Short Term Goals Short Term Goals Time Frame: Feb 04, 2019 Transfers (B,C,W/C) (FIM): 4 (met) Gait (FIM): 1 (met) Gait Distance Comment: 20' Gait Level of Assist: 3 Gait Assistive Device: Walker Henry Wheelchair Distance: 80' PT Automatic Buffing Wheel Former Goals Correction Goals PT Automatic Buffing Wheel Former Goals Time Frame: Feb 18, 2019 Transfers (B,C,W/C) (FIM): 4 Sit to Lying (QC): 4 Lying-Sitting on Side/Bed(QC): 4 Sit to Stand (QC): 4 Rollin Roll Left to Right (QC): 4 Chair/Xbj-vi-Pmmow Xfer(QC): 4 Car Transfer (QC): 4 Gait (FIM): 2 Distance: 50' Walk 10 feet (QC): 3 Walk 10ft-Uneven Surface(QC): 3 Walk 50ft with 2 Turns (QC): 3 Gait Level of Assist: 4 Gait Assistive Device: Cane Large Base Quad Wheelchair (FIM): 6 Distance: 150' Wheelchair Level of Assist: 6 Wheel 50 feet with 2 turns (QC: 6 Stairs (FIM): 1 # of Steps: 1 1 Step (curb) (QC): 3 Stairs Level Of Assist: 4 PT Plan Treatment/Plan Treatment Plan: Continue Plan of Care Treatment Plan: Bed Mobility, Concurrent Therapy, Education, Functional Activity Gifty, Functional Strength, Group Therapy, Gait, Safety, Therapeutic Exercise, Transfers Treatment Duration: Feb 18, 2019 Frequency: At least 5 of 7 days/Wk (IRF) Estimated Hrs Per Day: 1.5 hours per day Patient and/or Family Agrees t: Yes Safety Risks/Education Patient Education: Gait Training, Transfer Techniques, Disease Process, Safety Issues Teaching Recipient: Patient Teaching Methods: Demonstration, Discussion Time/GCodes Time In: 1125 Time Out: 1136 Total Billed Treatment Time: 16 Total Billed Treatment 1 visit, NM x 1 unit CHENTE NAJERA HYPERBARIC TECH Feb 16, 2019 13:51
[2019-02-16 16:21] VITALS: BP 149/71
[2019-02-16] MEDS: TAMSULOSIN 0.4 MG (FLOMAX) CAP PO SCH (17:52)
[2019-02-16] MEDS: ATORVASTATIN 80 MG (LIPITOR) TABLET PO SCH (20:57)
[2019-02-16] MEDS: LIDOCAINE PATCH REMOVAL TP SCH (20:59)
[2019-02-17 05:02] VITALS: BP 111/67
[2019-02-17] MEDS: BETHANECHOL 25 MG (URECHOLINE) TAB PO SCH ×4 (06:00→19:59)
[2019-02-17] MEDS: FERROUS SULF 325 MG (IRON) TAB PO SCH (06:00)
--- NOTE | 2019-02-17 08:24 | PM&R Progress Note ---
Subjective HPI/CC On Admission Date Seen by Provider: Feb 17, 2019 Time Seen by Provider: 08:00 CC: Ischemic stroke HPI: This is a 63-year-old white male of Dr. Schultz who presented to via [facility] [place] ER on 01/23/19 with abrupt onset of severe weakness on the right side underwent stroke workup and found to be a candidate for TPA then shipped to [facility] and subsequently underwent left carotid endarterectomy on 01/25/19 but still remains with right sided weakness with severe expressive aphasia. Reviewed the entire record at [facility] and reviewed his home medications and patient appears to be ready to start aggressive physical therapy in order regain function. His drove him from and reports that he did well on the trip. His oekldn-ge-tpi is a nurse and she helped reviewed the discharge med list. He is currently on. Diet with nectar thickened liquids. CT scan via [facility] and [facility] showed a left ischemic process of the MCA distribution. During hospital course the he had no significant clinical decompensation. Patient requires inpatient rehabilitation with 24 hour physician supervision to monitor her labile blood pressure and monitor for any hemorrhagic residual from ischemic stroke that cannot be provided in any type of lower level of care. 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 Subjective/Events-last exam Pt doing very well Voiding well No pain is reported Expressive aphasia is much improved Physical therapy reports he is ambulating with a quad cane but he tires easily and the right foot drags at that time OT reports he bathes and toilets himself well, he is a fall risk when he hurries Speech reports the pt is doing well overall Working on balance to decrease fall risk will be proposed prior to DC home Review of Systems Neurological: Weakness, Numbness, Incoordination, Change in speech Objective Exam Vital Signs Vital Signs Date Time Temp Pulse Resp B/P (MAP) Pulse Ox O2 Delivery O2 Flow Rate FiO2 02/17/19 15:40 96.7 57 16 150/74 (99) 99 Room Air Capillary Refill : General Appearance: No Apparent Distress, WD/WN, Chronically ill HEENT: PERRL/EOMI, Pharynx Normal, Other (right facial droop) Neck: Full Range of Motion, Normal Inspection, Non Tender, Supple, Other ( incision left neck intact) Respiratory: Chest Non Tender, Lungs Clear, Normal Breath Sounds, No Accessory Muscle Use, No Respiratory Distress Cardiovascular: Regular Rate, Rhythm, No Edema, No Gallop, No JVD, No Murmur, Normal Peripheral Pulses Gastrointestinal: Normal Bowel Sounds, No Organomegaly, No Pulsatile Mass, Non Tender, Soft Back: Normal Inspection, No CVA Tenderness, No Vertebral Tenderness Extremity: Normal Capillary Refill, Normal Inspection, Non Tender, No Calf Tenderness, No Pedal Edema, Other (limited ROM right side and mild deficit left) Neurologic/Psychiatric: Alert, Normal Mood/Affect, Abnormal key attendant II-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 FIM Transfers Therapy Code Descriptions/Definitions Functional [place] Measure: 0=Not Assessed/NA 4=Minimal Assistance 1=Total Assistance 5=Supervision or Setup 2=Maximal Assistance 6=Modified [place] 3=Moderate Assistance 7=Complete [place] Therapy Quality Codes: 6 Independent with activity with or without an assistive device 5 Patient requires set up or clean up by helper. Patient completes activity by themselves 4 Supervision or touching assist (CGA). [place] provide cues , steadying assist 3 The helper provides less than half the effort to complete the activity 2 The helper provides more than half the effort to complete the activity 1 Dependent. The helper does all the effort to complete an activity 7 Patient refused to complete or attempt activity 9 The patient did not perform the activity before the current illness or injury 88 Not attempted due to Medical conditions or safety concerns Mental Status/Objective Comprehension: 6 Expression: 1 Social Interaction: 5 Problem Solvin Memory: 5 ADL-Treatment Feedin Eating (QC): 5 Groomin (Set up at sink to brush hair and teeth. Pt. is seated in chair.) Oral Hygiene (QC): 5 Bathin (CGA at times in stance in shower. Occassionally pt. will let go of grab bar during dynamic task, and will need assist to correct balance.) Bathing Location: L Arm, R Arm, L Upper Leg, R Upper Leg, L Lower Leg ( including foot), R Lower Leg (including foot), Chest, Abdomen, Buttocks, Perineal Area Shower/Bathe Self (QC): 4 Upper Extremity Dressin Upper Body Dressing (QC): 4 Lower Extremity Dressin (Assist in stance to pull pants over hips.) Lower Body Dressing (QC): 4 On/Off Footwear (QC): 5 (Slipper socks only today.) Toiletin Toileting Hygiene (QC): 3 Toilet/Commode Transfer: 4 Toilet Transfer (QC): 4 Shower: 4 Assessment/Plan Assessment and Plan Assess & Plan/Chief Complaint Assessment: (1) Ischemic stroke 01/23/19 (2) S/P carotid endarterectomy 01/25/19 with no improvement in right sided weakness (3) PVD (peripheral vascular disease) (4) CAD (coronary artery disease) (5) Expressive aphasia- improved 02/02/19 (6) Right sided weakness (7) Anemia-iron def so starting iron 02/03/19 (8) Hypertension (9) S/P cataract extraction (10) Dysphagia (11) Hyperlipidemia (12) Constipation-resolved 01/29/19 after meds (13) Klinefelter syndrome (14) Received intravenous tissue plasminogen activator (tPA) in emergency department 01/23/19 at [facility] ER (15) Depression (16) Former smoker (17) Hyponatremia improved on salt tablets and in process of weaning off (18) DVT prophylaxis (19) Urinary retention-consulted Urology, appreciate recs (20) Lee catheter was in place now DC but back with urinary retention s/p cysto so placed on Urecholine with Flomax and DC Lee and that is working well and voiding normally Plan: Patient doing extremely well Participating in all therapies as required Insurance approved 7 more days which will be asked him to just to get back to prior level of functioning Speech working with expressive aphasia May ultimately discontinue salt tablets and will start weaning today to 1 daily changed 02/12/19 Blood pressure well controlled on Norvasc 5 MG Checked labs for regular monitoring and checked sodium level since weaning salt tablets and all results normal (1) Ischemic stroke (2) Anemia Assessment & Plan: Start iron therapy (3) Expressive aphasia (4) CAD (coronary artery disease) (5) Dysphagia (6) Hyperlipidemia (7) PVD (peripheral vascular disease) (8) Hypertension (9) Right sided weakness (10) Klinefelter syndrome (11) Constipation (12) Depression (13) Hyponatremia (14) DVT prophylaxis (15) Received intravenous tissue plasminogen activator (tPA) in emergency department (16) Urinary retention Assessment & Plan: Resolved (17) Lee catheter in place Assessment & Plan: Resolved (18) S/P carotid endarterectomy (19) S/P cataract extraction (20) Former smoker BOOGIE WHITTEN DO Feb 17, 2019 08:24
--- NOTE | 2019-02-17 08:25 | Physical Therapy Daily Note ---
PT Daily Note-Current Subjective Pt laying Supine in bed upon arrival. Pt agrees to PT. Mental Status Patient Orientation: Person, Place, Situation Transfers Therapy Code Descriptions/Definitions Functional [place] Measure: 0=Not Assessed/NA 4=Minimal Assistance 1=Total Assistance 5=Supervision or Setup 2=Maximal Assistance 6=Modified [place] 3=Moderate Assistance 7=Complete [place] Therapy Quality Codes: 6 Independent with activity with or without an assistive device 5 Patient requires set up or clean up by helper. Patient completes activity by themselves 4 Supervision or touching assist (CGA). [place] provide cues , steadying assist 3 The helper provides less than half the effort to complete the activity 2 The helper provides more than half the effort to complete the activity 1 Dependent. The helper does all the effort to complete an activity 7 Patient refused to complete or attempt activity 9 The patient did not perform the activity before the current illness or injury 88 Not attempted due to Medical conditions or safety concerns Transfers (B, C, W/C) (FIM): 5 Scootin Supine to/from Sit: 5 Sit to/from Stand: 5 Sit to Lying (QC): 5 Sit to Stand (QC): 5 Weight Bearing Right Lower Extremity: Right Full Weight Bearing Left Lower Extremity: Left Full Weight Bearing Gait Training Does the Patient Walk?: Yes Gait (FIM): 5 Distance: 75' x 2 Gait Level of Assist: 5 Gait Persons Needed: 1 Gait Assistive Device: Cane Large Base Quad Pt. needed VC to clear R foot during ambulation. Wheelchair Training Does the Pt Use a Wheelchair?: No Stair Training Stair Training: Handrails/: 2 handrails #of Steps: 8 Stairs: Pattern: Step to Level of Assist: 4 Pt. completed 4 steps with short rest break followed by 8 more steps. Pt. was fatigued at this time and no more stairs were completed. Pt. needed VC to clear R toe when ascending stairs. Exercises Standing: Hip Abduction, Hamstring curls, Heel/toe raises, 3 way Ex=Flex, Abd, Ext, Marching, Mini squats Standing Reps: 10 NuStep Minutes: 10 NuStep Workload: 4 Treatments Pt. transferred from bed and ambulated down to therapy room. Pt. rode NuStep x 10 min on workload 4. Pt. then completed standing exercises at the parallel bars with B UE on bars. Pt. then completed stairs with 1 rest break in between. Pt. then ambulated back to room left in chair with call light and all needs met. Assessment Current Status: Good Progress Pt. will continue to benefit from therapy services to improve strength, balance and mobility. Pt will work on increased stair mobility. PT Short Term Goals Short Term Goals Time Frame: Feb 04, 2019 Transfers (B,C,W/C) (FIM): 4 (met) Gait (FIM): 1 (met) Gait Distance Comment: 20' Gait Level of Assist: 3 Gait Assistive Device: Walker Henry Wheelchair Distance: 80' PT Assisted Goals Assisted Goals PT Dual Hose C[place]er Goals Time Frame: Feb 18, 2019 Transfers (B,C,W/C) (FIM): 4 Sit to Lying (QC): 4 Lying-Sitting on Side/Bed(QC): 4 Sit to Stand (QC): 4 Rollin Roll Left to Right (QC): 4 Chair/Yzt-jo-Yxzel Xfer(QC): 4 Car Transfer (QC): 4 Gait (FIM): 2 Distance: 50' Walk 10 feet (QC): 3 Walk 10ft-Uneven Surface(QC): 3 Walk 50ft with 2 Turns (QC): 3 Gait Level of Assist: 4 Gait Assistive Device: Cane Large Base Quad Wheelchair (FIM): 6 Distance: 150' Wheelchair Level of Assist: 6 Wheel 50 feet with 2 turns (QC: 6 Stairs (FIM): 1 # of Steps: 1 1 Step (curb) (QC): 3 Stairs Level Of Assist: 4 PT Plan Treatment/Plan Treatment Plan: Continue Plan of Care Treatment Plan: Bed Mobility, Concurrent Therapy, Education, Functional Activity Gifty, Functional Strength, Group Therapy, Gait, Safety, Therapeutic Exercise, Transfers Treatment Duration: Feb 18, 2019 Frequency: At least 5 of 7 days/Wk (IRF) Estimated Hrs Per Day: 1.5 hours per day Patient and/or Family Agrees t: Yes Safety Risks/Education Patient Education: Gait Training, Transfer Techniques, Steps, Correct Positioning, Safety Issues Teaching Recipient: Patient Teaching Methods: Demonstration, Discussion Response to Teaching: Verbalize Understanding, Return Demonstration Time/GCodes Time In: 800 Time Out: 845 Total Billed Treatment Time: 45 Total Billed Treatment 1, GT, EX, FA G Codes Necessary: JASMIN Calero PTA Feb 17, 2019 08:24
[2019-02-17] MEDS: SERTRALINE 100 MG (ZOLOFT) TAB PO SCH (08:52)
[2019-02-17] MEDS: CLOPIDOGREL 75 MG (PLAVIX) TABLET PO SCH (08:52)
[2019-02-17] MEDS: ASPIRIN 81 MG CHEW (CHILDREN'S ASA) PO SCH (08:52)
[2019-02-17] MEDS: amLODIPine 5 MG (NORVASC) TAB PO SCH (08:52)
[2019-02-17] MEDS: BISOPROLOL 5 MG TAB (ZEBETA) PO SCH (08:52)
[2019-02-17] MEDS: SODIUM CHLORIDE 1 GM TAB (NON-FORMULARY) PO SCH (08:52)
[2019-02-17] MEDS: LIDOCAINE 4% (SALONPAS) PATCH TOP SCH (08:54)
[2019-02-17] MEDS: DICLOFENAC 1% GEL 100 GM (VOLTAREN) TUBE TOP SCH ×2 (08:55→19:44)
[2019-02-17] MEDS: SENNA W/DOCUSATE (SENOKOT S) TABLET PO SCH ×2 (08:55→19:44)
[2019-02-17] MEDS: POLYETHYLENE GLYCOL 17 GM (MIRALAX) PACK PO SCH ×2 (08:55→19:43)
[2019-02-17] MEDS: SIMBRINZA PO SCH ×2 (08:56→19:59)
[2019-02-17] MEDS: prednisoLONE 1% OPTH (PRED FORTE) 5 ML BTL OS SCH ×4 (08:56→19:59)
[2019-02-17] MEDS: EYE PO SCH ×2 (08:56→19:59)
--- NOTE | 2019-02-17 10:35 | Speech Therapy Daily Note ---
Speech Daily Progress Note Subjective Date Seen by Provider: Feb 17, 2019 Time Seen by Provider: 00:30 The patient was sitting in his recliner watching television when I entered his room. Objective The patient completed word finding exercises with answers to general information questions with 80% accuracy given min to mod verbal cues. Assessment Assessment Current Status: Good Progress Treatment Plan Continue Plan of Care Communication Comprehension: 6 Expression: 1 Social Cognition Social Interaction: 5 Problem Solvin Memory: 5 Speech Short Term Goals Short Term Goals Short Term Goals 1) The patient will demonstrate orientation to person, place time and situation with 75% accuracy provided with stimulation and choices. 2) The patient will demonstrate correct naming of ten functional simple items during therapy session. 3) The patient will vollow one-step verbal commands with mod verbal/visual cues with 80% accuracy. 4) The patient will tolerate least restrictive diet level without signs/ symptoms of aspiration. 5) The patient will utilize compensatory strategies as trained for safe oral intake at 90% given minimal cues. Speech Prison Goals Hr Payroll Coordinator Goals 1) Patient will communicate basic wants and needs with 2-3 word phrases during therapy sessions. 2) Patient will maintain adequate nutrition/hydration via safe effective swallow function. Speech-Plan Patient/Family Goals Patient/Family Goals: The patient plans to return home with his post rehab. Treatment Plan Speech Therapy Treatment Plan: Continue Plan of Care The patient has progressed well as a result of skilled ST services. Treatment Duration: Feb 19, 2019 Frequency: 5 times per week Estimated Hrs Per Day: .5 hour per day Rehab Potential: Good Barriers to Learning: New onset CVA, moderate expressive aphasia. Pt/Family Agrees to Plan: Yes Safety Risks/Education Teaching Recipient: Patient Teaching Methods: Demonstration, Discussion Response to Teaching: Verbalize Understanding, Return Demonstration Education Topics Provided: Communication strategies Time Speech Therapy Time In: 09:00 Speech Therapy Time Out: 09:30 Total Billed Time: 30 Billed Treatment Time [address] Feb 17, 2019 10:35
--- NOTE | 2019-02-17 10:59 | Occupational Ther Daily Note ---
OT Current Status-Daily Note Subjective No pain reported. Appearance Pt. up in bathroom with nursing supervision. OT takes over and pt. agrees to shower after toileting task. Mental Status/Objective Patient Orientation: Person, Place Therapy Code Descriptions/Definitions Functional [place] Measure: 0=Not Assessed/NA 4=Minimal Assistance 1=Total Assistance 5=Supervision or Setup 2=Maximal Assistance 6=Modified [place] 3=Moderate Assistance 7=Complete [place] ADL-Treatment Therapy Code Descriptions/Definitions Functional [place] Measure: 0=Not Assessed/NA 4=Minimal Assistance 1=Total Assistance 5=Supervision or Setup 2=Maximal Assistance 6=Modified [place] 3=Moderate Assistance 7=Complete [place] Therapy Quality Codes: 6 Independent with activity with or without an assistive device 5 Patient requires set up or clean up by helper. Patient completes activity by themselves 4 Supervision or touching assist (CGA). [place] provide cues , steadying assist 3 The helper provides less than half the effort to complete the activity 2 The helper provides more than half the effort to complete the activity 1 Dependent. The helper does all the effort to complete an activity 7 Patient refused to complete or attempt activity 9 The patient did not perform the activity before the current illness or injury 88 Not attempted due to Medical conditions or safety concerns Grooming (FIM): 5 (SBA at sink seated to brush teeth and hair.) Oral Hygiene (QC): 4 Bathing (FIM): 4 (CGA in stance in shower for safety during dynamic tasks.) Shower/Bathe Self (QC): 4 Upper Body (FIM): 5 Upper Body Dressing (QC): 4 Lower Body Dressing (FIM): 4 (Pt. required min assist to fully pull pants over hip and to don right shoe.) Lower Body Dressing (QC): 4 On/Off Footwear (QC): 4 Toileting (FIM): 5 (SBA for toileting.) Toileting Hygiene (QC): 4 Transfers (B, C, W/C) (FIM): 4 Toilet/Commode Transfer (FIM): 5 Toilet Transfer (QC): 4 Shower Transfer(FIM): 4 Other Treatment After toileting task, pt. ambulated with quad cane to therapy gym. CGA for balance and cues at times to take his time. Completed arm arc with right UE for shoulder ROM and fine motor strength. Pt. fatigued quickly and began having difficulty getting rings high enough. Completed supervisor food checkers and cashiers task with fine motor coordination addressed. Slow but able to picker/puller each piece. Stood at table multiple times and focused on good sit-stands and stand-sits, as well as balancing at table without holding for support. Pt. tolerated this well. Ambulated back to room with CGA and quad cane. All needs met. Education OT Patient Education: Correct positioning, Exercise program, Modified ADL techniques, Progress toward Goal/Update tx plan, Purpose of tx/functional activities, Reviewed precautions, Rehab process, Transfer techniques Teaching Recipient: Patient Teaching Methods: Demonstration, Discussion Response to Teaching: Verbalize Understanding, Return Demonstration OT Short Term Goals Short Term Goals Time Frame: Feb 11, 2019 Eating(FIM): 4 Grooming(FIM): 44 Bathing(FIM): 3 Upper Body Dressing(FIM): 3 Lower Body Dressing(FIM): 3 Toileting(FIM): 4 Transfers (B,C,W/C) (FIM): 4 (met) Toilet/Commode Transfer(FIM): 4 Shower Transfer(FIM): 4 Additional Short Term Goals: 1-Demonstrate ADL Tasks, 2-Verbalize Understanding , 3-ImproveStrength/Gifty 1=Demonstrate adherence to instructed precautions during ADL tasks. 2=Patient will verbalize/demonstrate understanding of assistive devices/ modifications for ADL. 3=Patient will improve strength/tolerance for activity to enable patient to perform ADL's. OT Fpc Goals Fpc Goals Time Frame: February 25, 2019 Eating (FIM): 6 Eating (QC): 6 Groomin Oral Hygiene (QC): 6 Bathing(FIM): 5 Shower/Bathe Self (QC): 5 Upper Body Dressing(FIM): 5 Upper Body Dressing (QC): 5 Lower Body Dressing(FIM): 5 Lower Body Dressing (QC): 5 On/Off Footwear (QC): 5 Toileting(FIM): 6 Toileting Hygiene (QC): 6 Transfers (B,C,W/C) (FIM): 6 Toilet/Commode Transfer(FIM): 6 Toilet/Commode Transfer (QC): 6 Shower Transfer(FIM): 5 Additional Goals: 1-Demonstrate ADL Tasks, 2-Verbalize Understanding, 3- ImproveStrength/Gifty 1=Demonstrate adherence to instructed precautions during ADL tasks. 2=Patient will verbalize/demonstrate understanding of assistive devices/ modifications for ADL. 3=Patient will improve strength/tolerance for activity to enable patient to perform ADL's. OT Education/Plan Problem List/Assessment Assessment: Decreased Activ Tolerance, Decreased UE Strength, Dependent Transfers, Impaired Coordination, Impaired Funct Balance, Impaired I ADL's, Impaired Self-Care Skills, Restricted Funct UE ROM pt continue to make progress toward all OT goals. pt would benefit from additional OT services to maximize rehab potential and to increase overall independence with ADLS/ functional transfers. Discharge Recommendations Plan/Recommendations: Continue POC Therapy D/C Recommendations: Home w/ Family Support, Occupational Therapy Home Care Treatment Plan/Plan of Care Treatment,Training & Education: Yes Patient would benefit from OT for education, treatment and training to promote independence in ADL's, mobility, safety and/or upper extremity function for ADL' s. Plan of Care: ADL Retraining, Functional Mobility, Group Exercise/Act as Ind, UE Funct Exercise/Act Treatment Duration: February 25, 2019 Frequency: At least 5 of 7 days/Wk (IRF) Estimated Hrs Per Day: 1.5 hours per day Agreement: Yes Rehab Potential: Good Time/GCodes Start Time: 09:30 Stop Time: 10:25 Total Time Billed (hr/min): 55 Billed Treatment Time 1, ADL x 30minutes, FA x 25minutes PAULETTE HALL OT Feb 17, 2019 10:59
--- NOTE | 2019-02-17 13:44 | Speech Therapy Rehab Re-Cert ---
Speech Re-Certification Form Treatment Duration: Effective 02/05/2019 Speech Therapy Treatment Plan: Continue Plan of Care # of days/week 5 days per week Visits Per Week: 5 Minutes/Day (M-F): 30 Rehab Potential: Good Barriers to Learning: New onset CVA, moderate expressive language Patient and/or Family Agrees t: Yes Speech Short Term Goals Short Term Goals Short Term Goals 1) The patient will demonstrate orientation to person, place time and situation with 75% accuracy provided with stimulation and choices. 2) The patient will demonstrate correct naming of ten functional simple items during therapy session. 3) The patient will vollow one-step verbal commands with mod verbal/visual cues with 80% accuracy. 4) The patient will tolerate least restrictive diet level without signs/ symptoms of aspiration. 5) The patient will utilize compensatory strategies as trained for safe oral intake at 90% given minimal cues. Speech Correspondence School Instructor Goals [facility] Goals 1) Patient will communicate basic wants and needs with 2-3 word phrases during therapy sessions. 2) Patient will maintain adequate nutrition/hydration via safe effective swallow function. EMILY SUAREZ Feb 17, 2019 13:44
--- NOTE | 2019-02-17 14:20 | Therapy Group Daily Note ---
Therapy Daily Group Note Patient Education Topic Exercises Exercises LE Seated Exercise, UE Exercise Session Ratio (pt:therapist): 4:1 Goal of Session: UE/LE Strengthing, Other (list) (understanding the benefits of exercise) Goal Met for this Session: Yes Pt Benefit of Group: Contributions to Others, Increased Functional Safety, Increased Functional Strength, Recognition of Peers, Socialization Other/Notes Pt. attended group PT OT session this date. Pt. ambulated to and from session with QC and CGA. Pts. introduced themselves and shared some about their grade school days and physical activities they enjoy. Pts. were educated regarding the benefits and importance of exercise and activity .Pts were assisted with and instructed in use of theraband, wrist / ankle weights and active exercise. Pt. was taken to room after , luna at hand , needs met Start Time: 13:00 Stop Time: 14:05 Total Billed Treatment Time: 65 Total Billed Treatment 1,GRP ALETHEA SANTOS HOME EXTENSION AGENT Feb 17, 2019 14:20
--- NOTE | 2019-02-17 14:50 | NUR ---
provided prayer and Communion.
[2019-02-17 15:40] VITALS: BP 150/74
--- NOTE | 2019-02-17 16:00 | NUR ---
MACHINE PULLER OVER met with patient to review team conference summary. As patient continues to make progress and tolerate therapies; however, continues to require standby assist for all activities due to fall risk and diminished safety awareness, team has recommended reevaluation on 51. Patient and spouse are agreeable to this. MACHINE PULLER OVER will send updated clinical information to patients insurance on with request of additional 7 days. MACHINE PULLER OVER will continue to follow.
[2019-02-17] MEDS: TAMSULOSIN 0.4 MG (FLOMAX) CAP PO SCH (18:03)
[2019-02-17] MEDS: LIDOCAINE PATCH REMOVAL TP SCH (19:44)
[2019-02-17] MEDS: ATORVASTATIN 80 MG (LIPITOR) TABLET PO SCH (19:59)
[2019-02-18 05:24] VITALS: BP 128/70
[2019-02-18] MEDS: BETHANECHOL 25 MG (URECHOLINE) TAB PO SCH ×4 (06:17→20:21)
--- NOTE | 2019-02-18 08:30 | PM&R Progress Note ---
Subjective HPI/CC On Admission Date Seen by Provider: Feb 18, 2019 Time Seen by Provider: 08:15 CC: Ischemic stroke HPI: This is a 63-year-old white male of Dr. Schultz who presented to via [facility] ER on 01/23/19 with abrupt onset of severe weakness on the right side underwent stroke workup and found to be a candidate for TPA then shipped to [facility] and subsequently underwent left carotid endarterectomy on 01/25/19 but still remains with right sided weakness with severe expressive aphasia. Reviewed the entire record at [facility] and reviewed his home medications and patient appears to be ready to start aggressive physical therapy in order regain function. His drove him from and reports that he did well on the trip. His [id number] is a nurse and she helped reviewed the discharge med list. He is currently on. Diet with nectar thickened liquids. CT scan via [facility] and [facility] showed a left ischemic process of the MCA distribution. During hospital course the he had no significant clinical decompensation. Patient requires inpatient rehabilitation with 24 hour physician supervision to monitor her labile blood pressure and monitor for any hemorrhagic residual from ischemic stroke that cannot be provided in any type of lower level of care. 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 Subjective/Events-last exam Pt having no issues. Participating in therapy. Voiding well. Bowels are moving. Eating and drinking well. Expressive aphasia continues but much improved. Overall having major gains in the last 22 days of inpatient rehab therapy. Review of Systems Neurological: Weakness, Numbness, Incoordination Objective Exam Vital Signs Vital Signs Date Time Temp Pulse Resp B/P (MAP) Pulse Ox O2 Delivery O2 Flow Rate FiO2 02/18/19 17:04 97.5 54 16 144/72 (96) 94 Room Air Capillary Refill : General Appearance: No Apparent Distress, WD/WN, Chronically ill HEENT: PERRL/EOMI, Pharynx Normal, Other (right facial droop) Neck: Full Range of Motion, Normal Inspection, Non Tender, Supple, Other ( incision left neck intact) Respiratory: Chest Non Tender, Lungs Clear, Normal Breath Sounds, No Accessory Muscle Use, No Respiratory Distress Cardiovascular: Regular Rate, Rhythm, No Edema, No Gallop, No JVD, No Murmur, Normal Peripheral Pulses Gastrointestinal: Normal Bowel Sounds, No Organomegaly, No Pulsatile Mass, Non Tender, Soft Back: Normal Inspection, No CVA Tenderness, No Vertebral Tenderness Extremity: Normal Capillary Refill, Normal Inspection, Non Tender, No Calf Tenderness, No Pedal Edema, Other (limited ROM right side and mild deficit left) Neurologic/Psychiatric: Alert, Normal Mood/Affect, Abnormal marble supervisor II-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 FIM Transfers Therapy Code Descriptions/Definitions Functional [place] Measure: 0=Not Assessed/NA 4=Minimal Assistance 1=Total Assistance 5=Supervision or Setup 2=Maximal Assistance 6=Modified [place] 3=Moderate Assistance 7=Complete [place] Therapy Quality Codes: 6 Independent with activity with or without an assistive device 5 Patient requires set up or clean up by helper. Patient completes activity by themselves 4 Supervision or touching assist (CGA). [place] provide cues , steadying assist 3 The helper provides less than half the effort to complete the activity 2 The helper provides more than half the effort to complete the activity 1 Dependent. The helper does all the effort to complete an activity 7 Patient refused to complete or attempt activity 9 The patient did not perform the activity before the current illness or injury 88 Not attempted due to Medical conditions or safety concerns Gait Training Does the Patient Walk?: Yes Distance (FIM): 3=168-19 ft Gait Assistive Device: Cane Small Base Quad Wheelchair Training Does the Pt Use a Wheelchair?: No Mental Status/Objective Comprehension: 6 Expression: 1 Social Interaction: 5 Problem Solvin Memory: 5 ADL-Treatment Feedin Eating (QC): 5 Groomin (SBA at sink seated to brush teeth and hair.) Oral Hygiene (QC): 4 Bathin (CGA in stance in shower for safety during dynamic tasks.) Bathing Location: L Arm, R Arm, L Upper Leg, R Upper Leg, L Lower Leg ( including foot), R Lower Leg (including foot), Chest, Abdomen, Buttocks, Perineal Area Shower/Bathe Self (QC): 4 Upper Extremity Dressin Upper Body Dressing (QC): 4 Lower Extremity Dressin (Pt. required min assist to fully pull pants over hip and to don right shoe.) Lower Body Dressing (QC): 4 On/Off Footwear (QC): 4 Toiletin (SBA for toileting.) Toileting Hygiene (QC): 4 Toilet/Commode Transfer: 5 Toilet Transfer (QC): 4 Shower: 4 Assessment/Plan Assessment and Plan Assess & Plan/Chief Complaint Assessment: (1) Ischemic stroke 01/23/19 (2) S/P carotid endarterectomy 01/25/19 with no improvement in right sided weakness while at [facility] (3) PVD (peripheral vascular disease) (4) CAD (coronary artery disease) (5) Expressive aphasia- improved 02/02/19 (6) Right sided weakness (7) Anemia-iron def so starting iron 02/03/19 (8) Hypertension (9) S/P cataract extraction (10) Dysphagia (11) Hyperlipidemia (12) Constipation-resolved after meds (13) Klinefelter syndrome (14) Received intravenous tissue plasminogen activator (tPA) in emergency department 01/23/19 at [facility] ER (15) Depression (16) Former smoker (17) Hyponatremia improved on salt tablets and in process of weaning off (18) DVT prophylaxis (19) Urinary retention-consulted Urology, appreciate recs (20) Lee catheter was in place now DC but back with urinary retention s/p cysto so placed on Urecholine with Flomax and DC Lee and that is working well and voiding normally Plan: Patient doing extremely well Participating in all therapies as required Insurance approved 7 more days which will be asked him to just to get back to prior level of functioning Speech working with expressive aphasia May ultimately discontinue salt tablets and will start weaning today to 1 daily changed 02/12/19 Blood pressure well controlled on Norvasc 5 MG Checked labs for regular monitoring and checked sodium level since weaning salt tablets and all results normal (1) Ischemic stroke (2) Anemia Assessment & Plan: Start iron therapy (3) Expressive aphasia (4) CAD (coronary artery disease) (5) Dysphagia (6) Hyperlipidemia (7) PVD (peripheral vascular disease) (8) Hypertension (9) Right sided weakness (10) Klinefelter syndrome (11) Constipation (12) Depression (13) Hyponatremia (14) DVT prophylaxis (15) Received intravenous tissue plasminogen activator (tPA) in emergency department (16) Urinary retention Assessment & Plan: Resolved (17) Lee catheter in place Assessment & Plan: Resolved (18) S/P carotid endarterectomy (19) S/P cataract extraction (20) Former smoker BOOGIE WHITTEN DO Feb 18, 2019 08:30
--- NOTE | 2019-02-18 08:35 | Physical Therapy Daily Note ---
PT Daily Note-Current Subjective Pt laying Supine in bed upon arrival. Pt agrees to PT. Pain Location: No Pain Reported Mental Status Patient Orientation: Person, Place, Situation Transfers Therapy Code Descriptions/Definitions Functional [place] Measure: 0=Not Assessed/NA 4=Minimal Assistance 1=Total Assistance 5=Supervision or Setup 2=Maximal Assistance 6=Modified [place] 3=Moderate Assistance 7=Complete [place] Therapy Quality Codes: 6 Independent with activity with or without an assistive device 5 Patient requires set up or clean up by helper. Patient completes activity by themselves 4 Supervision or touching assist (CGA). [place] provide cues , steadying assist 3 The helper provides less than half the effort to complete the activity 2 The helper provides more than half the effort to complete the activity 1 Dependent. The helper does all the effort to complete an activity 7 Patient refused to complete or attempt activity 9 The patient did not perform the activity before the current illness or injury 88 Not attempted due to Medical conditions or safety concerns Scootin Rollin Supine to/from Sit: 5 Sit to/from Stand: 5 Sit to Stand (QC): 5 Pt has to stand for a moment after standing to gain his bearings/regroup before ambulating. Weight Bearing Right Lower Extremity: Right Full Weight Bearing Left Lower Extremity: Left Full Weight Bearing Gait Training Does the Patient Walk?: Yes Distance (FIM): 3=150 ft Distance: 75', 150' Walk 10 feet (QC): 5 Walk 50 ft with 2 Turns(QC): 5 Walk 150 ft (QC): 5 Gait Level of Assist: 5 Gait Persons Needed: 1 Gait Assistive Device: Cane Large Base Quad Pt. may need VC to picker and packer R foot during ambulation so it doesn't scoot across the floor. Wheelchair Training Does the Pt Use a Wheelchair?: No Stair Training Stair Training: Handrails/: 2 handrails #of Steps: 8 1 Step (curb) (QC): 5 4 Steps (QC): 5 Stairs: Pattern: Step to Level of Assist: 5 Pt ambulates 2 sets of 4 steps then RB before 2 more sets. Exercises Seated Therapy Exercises: Ankle pumps, Long arc quads, Hip flexion, Kicking activity, Glut set Seated Reps: 10 Standing: Hip Abduction, Hamstring curls, Heel/toe raises, 3 way Ex=Flex, Abd, Ext (10 reps on each side) Standing Reps: 10 NuStep Minutes: 10 NuStep Workload: 5 Treatments Pt. transferred from bed and ambulated to therapy room. Pt. rode Nustep x 10 min on workload 5. Pt. then completed stair climbing. Pt. then completed standing exercises at parallel bars with B UE on bar. Pt ambulated down hallway and back to room and completed seated exercises in chair. Pt. left in chair with call light and all needs met. Assessment Current Status: Good Progress Pt. will continue to benefit from therapy to improve strength, balance, mobility and endurance. Pt. will also continue to improve on stair climbing. PT Short Term Goals Short Term Goals Time Frame: Feb 04, 2019 Transfers (B,C,W/C) (FIM): 4 (met) Gait (FIM): 1 (met) Gait Distance Comment: 20' Gait Level of Assist: 3 Gait Assistive Device: Walker [place] Wheelchair Distance: 80' PT Packing Floor Worker Goals Usp Goals PT Usp Goals Time Frame: Feb 18, 2019 Transfers (B,C,W/C) (FIM): 4 Sit to Lying (QC): 4 Lying-Sitting on Side/Bed(QC): 4 Sit to Stand (QC): 4 Rollin Roll Left to Right (QC): 4 Chair/Brc-lg-Afben Xfer(QC): 4 Car Transfer (QC): 4 Gait (FIM): 2 Distance: 50' Walk 10 feet (QC): 3 Walk 10ft-Uneven Surface(QC): 3 Walk 50ft with 2 Turns (QC): 3 Gait Level of Assist: 4 Gait Assistive Device: Cane Large Base Quad Wheelchair (FIM): 6 Distance: 150' Wheelchair Level of Assist: 6 Wheel 50 feet with 2 turns (QC: 6 Stairs (FIM): 1 # of Steps: 1 1 Step (curb) (QC): 3 Stairs Level Of Assist: 4 PT Plan Treatment/Plan Treatment Plan: Continue Plan of Care Treatment Plan: Bed Mobility, Concurrent Therapy, Education, Functional Activity Gifty, Functional Strength, Group Therapy, Gait, Safety, Therapeutic Exercise, Transfers Treatment Duration: Feb 18, 2019 Frequency: At least 5 of 7 days/Wk (IRF) Estimated Hrs Per Day: 1.5 hours per day Patient and/or Family Agrees t: Yes Safety Risks/Education Patient Education: Gait Training, Steps, Correct Positioning, Disease Process, Safety Issues Teaching Recipient: Patient Teaching Methods: Demonstration, Discussion Response to Teaching: Verbalize Understanding, Return Demonstration, Reinforcement Needed Time/GCodes Time In: 800 Time Out: 845 Total Billed Treatment Time: 45 Total Billed Treatment 1, GT, EX, FA G Codes Necessary: JASMIN Calero LOTUS NOTES DEVELOPER Feb 18, 2019 08:34
[2019-02-18] MEDS: amLODIPine 5 MG (NORVASC) TAB PO SCH (08:50)
[2019-02-18] MEDS: ASPIRIN 81 MG CHEW (CHILDREN'S ASA) PO SCH (08:50)
[2019-02-18] MEDS: SERTRALINE 100 MG (ZOLOFT) TAB PO SCH (08:50)
[2019-02-18] MEDS: CLOPIDOGREL 75 MG (PLAVIX) TABLET PO SCH (08:50)
[2019-02-18] MEDS: BISOPROLOL 5 MG TAB (ZEBETA) PO SCH (08:50)
[2019-02-18] MEDS: SODIUM CHLORIDE 1 GM TAB (NON-FORMULARY) PO SCH (08:50)
[2019-02-18] MEDS: POLYETHYLENE GLYCOL 17 GM (MIRALAX) PACK PO SCH ×2 (08:51→19:29)
[2019-02-18] MEDS: DICLOFENAC 1% GEL 100 GM (VOLTAREN) TUBE TOP SCH ×2 (08:52→19:30)
[2019-02-18] MEDS: EYE PO SCH ×2 (08:52→20:22)
[2019-02-18] MEDS: SIMBRINZA PO SCH ×2 (08:52→20:22)
[2019-02-18] MEDS: LIDOCAINE 4% (SALONPAS) PATCH TOP SCH (08:52)
[2019-02-18] MEDS: SENNA W/DOCUSATE (SENOKOT S) TABLET PO SCH ×2 (08:52→19:29)
[2019-02-18] MEDS: prednisoLONE 1% OPTH (PRED FORTE) 5 ML BTL OS SCH ×4 (08:53→20:22)
--- NOTE | 2019-02-18 10:00 | NUR ---
STILL NOT MUCH USE OF RIGHT HAND AND FEEDS SELF WITH LEFT HAND. WOULD LIKE TO GO OUTSIDE AND P.T. INFORMED.
--- NOTE | 2019-02-18 10:21 | Speech Therapy Daily Note ---
Speech Daily Progress Note Subjective Date Seen by Provider: Feb 18, 2019 Time Seen by Provider: 00:30 The patient was resting in his recliner when I entered his room. Objective The patient completed general information questions with 90% accuracy given minimal verbal and/or phonemic cuing. Communication Comprehension: 6 Expression: 1 Social Cognition Social Interaction: 5 Problem Solvin Memory: 5 Speech Short Term Goals Short Term Goals Short Term Goals 1) The patient will demonstrate orientation to person, place time and situation with 75% accuracy provided with stimulation and choices. 2) The patient will demonstrate correct naming of ten functional simple items during therapy session. 3) The patient will vollow one-step verbal commands with mod verbal/visual cues with 80% accuracy. 4) The patient will tolerate least restrictive diet level without signs/ symptoms of aspiration. 5) The patient will utilize compensatory strategies as trained for safe oral intake at 90% given minimal cues. Speech Long-Term Goals Marketing Research Intern Goals 1) Patient will communicate basic wants and needs with 2-3 word phrases during therapy sessions. 2) Patient will maintain adequate nutrition/hydration via safe effective swallow function. Speech-Plan Patient/Family Goals Patient/Family Goals: The patient plans to return home with his post rehab. Treatment Plan Speech Therapy Treatment Plan: Continue Plan of Care The patient is progressing with skilled therapy. Treatment Duration: Feb 19, 2019 Frequency: 5 times per week Estimated Hrs Per Day: .5 hour per day Rehab Potential: Good Barriers to Learning: New onset CVA, moderate expressive aphasia Pt/Family Agrees to Plan: Yes Safety Risks/Education Teaching Recipient: Patient Teaching Methods: Discussion Response to Teaching: Verbalize Understanding Education Topics Provided: Safety within his room and when he returns home Time Speech Therapy Time In: 09:00 Speech Therapy Time Out: 09:30 Total Billed Time: 30 Billed Treatment Time 1, EMILY Rivero Feb 18, 2019 10:21
--- NOTE | 2019-02-18 13:15 | Occupational Ther Daily Note ---
OT Current Status-Daily Note Subjective No pain reported. Appearance Pt. is able to indicate that he doesn't need to shower or change clothing. Agrees to work with OT. Mental Status/Objective Patient Orientation: Person, Place Therapy Code Descriptions/Definitions Functional [place] Measure: 0=Not Assessed/NA 4=Minimal Assistance 1=Total Assistance 5=Supervision or Setup 2=Maximal Assistance 6=Modified [place] 3=Moderate Assistance 7=Complete [place] ADL-Treatment Therapy Code Descriptions/Definitions Functional [place] Measure: 0=Not Assessed/NA 4=Minimal Assistance 1=Total Assistance 5=Supervision or Setup 2=Maximal Assistance 6=Modified [place] 3=Moderate Assistance 7=Complete [place] Therapy Quality Codes: 6 Independent with activity with or without an assistive device 5 Patient requires set up or clean up by helper. Patient completes activity by themselves 4 Supervision or touching assist (CGA). [place] provide cues , steadying assist 3 The helper provides less than half the effort to complete the activity 2 The helper provides more than half the effort to complete the activity 1 Dependent. The helper does all the effort to complete an activity 7 Patient refused to complete or attempt activity 9 The patient did not perform the activity before the current illness or injury 88 Not attempted due to Medical conditions or safety concerns Transfers (B, C, W/C) (FIM): 4 (CGA with quad cane to ambulate to therapy gym.) Pt. and OT began treatment in room working on fine motor coordination and verbal skills/problem solving, etc. Pt. agreed to work with OT on game that addressed problem solving and sequencing. Pt. was given a topic and was asked to state a form of that topic that started with a certain letter. For example, a vegetable that started with s. Pt. unable to do this. Pt. encouraged to write the word, but unable to do this as well. Worked on other methods with pt. in which pt. was encouraged to sing song that he knew with OT. Pt. able to do this and noted fluid speech. Pt. was then given half a sentence that was a known sentence, and encouraged to state the rest of that sentence. Pt. was approximately 75% accurate with this. Worked on grouping, naming, and sequencing items verbally. Pt. had difficulty when he was asked to generate his own response, or when he wasn't given multiple choices. After working on this, pt. agreed to ambulate to therapy gym. Ambulated with CGA for balance and safety. Pt. given coloring sheet and markers and encouraged to use his right hand to color the simple sheet. Pt. did this, with weak grasp, but able to complete most of the sheet. Increased time needed and pt. worked toward increased fine motor control. Ambulated back to room and all needs met. Education OT Patient Education: Correct positioning, Home exercise program, Modified ADL techniques, Progress toward Goal/Update tx plan, Purpose of tx/functional activities, Reviewed precautions, Rehab process, Transfer techniques Teaching Recipient: Patient Teaching Methods: Demonstration, Discussion Response to Teaching: Verbalize Understanding, Return Demonstration OT Short Term Goals Short Term Goals Time Frame: Feb 11, 2019 Eating(FIM): 4 Grooming(FIM): 44 Bathing(FIM): 3 Upper Body Dressing(FIM): 3 Lower Body Dressing(FIM): 3 Toileting(FIM): 4 Transfers (B,C,W/C) (FIM): 4 (met) Toilet/Commode Transfer(FIM): 4 Shower Transfer(FIM): 4 Additional Short Term Goals: 1-Demonstrate ADL Tasks, 2-Verbalize Understanding , 3-ImproveStrength/Gifty 1=Demonstrate adherence to instructed precautions during ADL tasks. 2=Patient will verbalize/demonstrate understanding of assistive devices/ modifications for ADL. 3=Patient will improve strength/tolerance for activity to enable patient to perform ADL's. OT Tree Trimming Supervisor Goals Tree Trimming Supervisor Goals Time Frame: February 25, 2019 Eating (FIM): 6 Eating (QC): 6 Groomin Oral Hygiene (QC): 6 Bathing(FIM): 5 Shower/Bathe Self (QC): 5 Upper Body Dressing(FIM): 5 Upper Body Dressing (QC): 5 Lower Body Dressing(FIM): 5 Lower Body Dressing (QC): 5 On/Off Footwear (QC): 5 Toileting(FIM): 6 Toileting Hygiene (QC): 6 Transfers (B,C,W/C) (FIM): 6 Toilet/Commode Transfer(FIM): 6 Toilet/Commode Transfer (QC): 6 Shower Transfer(FIM): 5 Additional Goals: 1-Demonstrate ADL Tasks, 2-Verbalize Understanding, 3- ImproveStrength/Gifty 1=Demonstrate adherence to instructed precautions during ADL tasks. 2=Patient will verbalize/demonstrate understanding of assistive devices/ modifications for ADL. 3=Patient will improve strength/tolerance for activity to enable patient to perform ADL's. OT Education/Plan Problem List/Assessment Assessment: Decreased Activ Tolerance, Dependent Transfers, Impaired Coordination, Impaired Funct Balance, Impaired I ADL's, Impaired Self-Care Skills, Restricted Funct UE ROM pt continue to make progress toward all OT goals. pt would benefit from additional OT services to maximize rehab potential and to increase overall independence with ADLS/ functional transfers. Discharge Recommendations Plan/Recommendations: Continue POC Therapy D/C Recommendations: Home w/ Family Support, Occupational Therapy Home Care Treatment Plan/Plan of Care Treatment,Training & Education: Yes Patient would benefit from OT for education, treatment and training to promote independence in ADL's, mobility, safety and/or upper extremity function for ADL' s. Plan of Care: ADL Retraining, Functional Mobility, Group Exercise/Act as Ind, UE Funct Exercise/Act Treatment Duration: February 25, 2019 Frequency: At least 5 of 7 days/Wk (IRF) Estimated Hrs Per Day: 1.5 hours per day Agreement: Yes Rehab Potential: Good Time/GCodes Start Time: 09:30 Stop Time: 10:45 Total Time Billed (hr/min): 75 Billed Treatment Time 1, FA x 5 PAULETTE HALL OT Feb 18, 2019 13:15
--- NOTE | 2019-02-18 13:30 | Physical Therapy Daily Note ---
PT Daily Note-Current Subjective Pt. in chair upon arrival and agreed to treatment. Transfers Therapy Code Descriptions/Definitions Functional [place] Measure: 0=Not Assessed/NA 4=Minimal Assistance 1=Total Assistance 5=Supervision or Setup 2=Maximal Assistance 6=Modified [place] 3=Moderate Assistance 7=Complete [place] Therapy Quality Codes: 6 Independent with activity with or without an assistive device 5 Patient requires set up or clean up by helper. Patient completes activity by themselves 4 Supervision or touching assist (CGA). [place] provide cues , steadying assist 3 The helper provides less than half the effort to complete the activity 2 The helper provides more than half the effort to complete the activity 1 Dependent. The helper does all the effort to complete an activity 7 Patient refused to complete or attempt activity 9 The patient did not perform the activity before the current illness or injury 88 Not attempted due to Medical conditions or safety concerns Sit to/from Stand: 5 Sit to Stand (QC): 5 Weight Bearing Right Lower Extremity: Right Full Weight Bearing Left Lower Extremity: Left Full Weight Bearing Gait Training Does the Patient Walk?: Yes Distance (FIM): 3=150 ft Distance: 500+ feet Walk 10 feet (QC): 5 Walk 50 ft with 2 Turns(QC): 5 Walk 150 ft (QC): 5 Gait Level of Assist: 5 Gait Persons Needed: 1 Gait Assistive Device: Cane Large Base Quad Pt. scoots R foot across the ground once fatigued. May need VC to clear R foot during ambulation. Wheelchair Training Does the Pt Use a Wheelchair?: No Exercises Seated Therapy Exercises: Ankle pumps, Long arc quads, Hip flexion, Kicking activity, Hip abd/add, Glut set Seated Reps: 10 Treatments Pt. transferred from chair and ambulates in hallway and main floor of hospital before returning back to room to rest. Pt. took two rest breaks during ambulation. Pt. then completed seated exercises in chair and left with call light and all needs met. Nephew was in the room when therapy left. Assessment Current Status: Good Progress Pt. will continue to benefit from therapy to improve strength, balance, endurance and mobility. Pt. seems anxious to become better. PT Short Term Goals Short Term Goals Time Frame: Feb 04, 2019 Transfers (B,C,W/C) (FIM): 4 (met) Gait (FIM): 1 (met) Gait Distance Comment: 20' Gait Level of Assist: 3 Gait Assistive Device: Walker [place] Wheelchair Distance: 80' PT Surveyor Geodetic Goals Surveyor Geodetic Goals PT Surveyor Geodetic Goals Time Frame: Feb 18, 2019 Transfers (B,C,W/C) (FIM): 4 Sit to Lying (QC): 4 Lying-Sitting on Side/Bed(QC): 4 Sit to Stand (QC): 4 Rollin Roll Left to Right (QC): 4 Chair/Rze-xf-Qefrr Xfer(QC): 4 Car Transfer (QC): 4 Gait (FIM): 2 Distance: 50' Walk 10 feet (QC): 3 Walk 10ft-Uneven Surface(QC): 3 Walk 50ft with 2 Turns (QC): 3 Gait Level of Assist: 4 Gait Assistive Device: Cane Large Base Quad Wheelchair (FIM): 6 Distance: 150' Wheelchair Level of Assist: 6 Wheel 50 feet with 2 turns (QC: 6 Stairs (FIM): 1 # of Steps: 1 1 Step (curb) (QC): 3 Stairs Level Of Assist: 4 PT Plan Treatment/Plan Treatment Plan: Continue Plan of Care Treatment Plan: Bed Mobility, Concurrent Therapy, Education, Functional Activity Gifty, Functional Strength, Group Therapy, Gait, Safety, Therapeutic Exercise, Transfers Treatment Duration: Feb 18, 2019 Frequency: At least 5 of 7 days/Wk (IRF) Estimated Hrs Per Day: 1.5 hours per day Patient and/or Family Agrees t: Yes Safety Risks/Education Patient Education: Gait Training, Steps, Safety Issues Teaching Recipient: Patient Teaching Methods: Demonstration, Discussion Response to Teaching: Verbalize Understanding, Return Demonstration Time/GCodes Time In: 1300 Time Out: 1330 Total Billed Treatment Time: 30 Total Billed Treatment 1, GT, EX G Codes Necessary: JASMIN Calero ACID REGENERATOR Feb 18, 2019 13:30
[2019-02-18 17:04] VITALS: BP 144/72
[2019-02-18] MEDS: TAMSULOSIN 0.4 MG (FLOMAX) CAP PO SCH (17:24)
[2019-02-18] MEDS: LIDOCAINE PATCH REMOVAL TP SCH (19:30)
[2019-02-18] MEDS: ATORVASTATIN 80 MG (LIPITOR) TABLET PO SCH (20:21)
[2019-02-19 04:49] VITALS: BP 112/65
[2019-02-19] MEDS: FERROUS SULF 325 MG (IRON) TAB PO SCH (06:08)
[2019-02-19] MEDS: BETHANECHOL 25 MG (URECHOLINE) TAB PO SCH ×4 (06:08→20:12)
--- NOTE | 2019-02-19 08:25 | PM&R Progress Note ---
Subjective HPI/CC On Admission Date Seen by Provider: Feb 19, 2019 Time Seen by Provider: 08:20 CC: Ischemic stroke HPI: This is a 63-year-old white male of Dr. Schultz who presented to via [facility] ER on 01/23/19 with abrupt onset of severe weakness on the right side underwent stroke workup and found to be a candidate for TPA then shipped to [facility] and subsequently underwent left carotid endarterectomy on 01/25/19 but still remains with right sided weakness with severe expressive aphasia. Reviewed the entire record at [facility] and reviewed his home medications and patient appears to be ready to start aggressive physical therapy in order regain function. His drove him from and reports that he did well on the trip. His vyrakw-rb-zca is a nurse and she helped reviewed the discharge med list. He is currently on. Diet with nectar thickened liquids. CT scan via [facility] and [facility] showed a left ischemic process of the MCA distribution. During hospital course the he had no significant clinical decompensation. Patient requires inpatient rehabilitation with 24 hour physician supervision to monitor her labile blood pressure and monitor for any hemorrhagic residual from ischemic stroke that cannot be provided in any type of lower level of care. 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 Subjective/Events-last exam RN has no concerns Walking around and went outside to walk without assistive device Using cane when he needs too Still impulsive so still a fall risk Fall prevention education provided Expressive aphasia much improved and that varies day to day also Fully oriented and no confusion Left carotid stenosis surgery healing well Review of Systems Neurological: Weakness, Numbness, Incoordination Objective Exam Vital Signs Vital Signs Date Time Temp Pulse Resp B/P (MAP) Pulse Ox O2 Delivery O2 Flow Rate FiO2 02/19/19 17:22 98.0 60 18 138/74 (95) 99 Room Air Capillary Refill : General Appearance: No Apparent Distress, WD/WN, Chronically ill HEENT: PERRL/EOMI, Pharynx Normal, Other (right facial droop) Neck: Full Range of Motion, Normal Inspection, Non Tender, Supple, Other ( incision left neck intact) Respiratory: Chest Non Tender, Lungs Clear, Normal Breath Sounds, No Accessory Muscle Use, No Respiratory Distress Cardiovascular: Regular Rate, Rhythm, No Edema, No Gallop, No JVD, No Murmur, Normal Peripheral Pulses Gastrointestinal: Normal Bowel Sounds, No Organomegaly, No Pulsatile Mass, Non Tender, Soft Back: Normal Inspection, No CVA Tenderness, No Vertebral Tenderness Extremity: Normal Capillary Refill, Normal Inspection, Non Tender, No Calf Tenderness, No Pedal Edema, Other (limited ROM right side and mild deficit left) Neurologic/Psychiatric: Alert, Normal Mood/Affect, Abnormal cafeteria associate II-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 FIM Transfers Therapy Code Descriptions/Definitions Functional [place] Measure: 0=Not Assessed/NA 4=Minimal Assistance 1=Total Assistance 5=Supervision or Setup 2=Maximal Assistance 6=Modified [place] 3=Moderate Assistance 7=Complete [place] Therapy Quality Codes: 6 Independent with activity with or without an assistive device 5 Patient requires set up or clean up by helper. Patient completes activity by themselves 4 Supervision or touching assist (CGA). [place] provide cues , steadying assist 3 The helper provides less than half the effort to complete the activity 2 The helper provides more than half the effort to complete the activity 1 Dependent. The helper does all the effort to complete an activity 7 Patient refused to complete or attempt activity 9 The patient did not perform the activity before the current illness or injury 88 Not attempted due to Medical conditions or safety concerns Gait Training Does the Patient Walk?: Yes Distance (FIM): [phone] ft Gait Assistive Device: None Wheelchair Training Does the Pt Use a Wheelchair?: No Mental Status/Objective Comprehension: 6 Expression: 1 Social Interaction: 5 Problem Solvin Memory: 5 ADL-Treatment Feedin Eating (QC): 5 Groomin (SBA at sink seated to brush teeth and hair.) Oral Hygiene (QC): 4 Bathin (CGA in stance in shower for safety during dynamic tasks.) Bathing Location: L Arm, R Arm, L Upper Leg, R Upper Leg, L Lower Leg ( including foot), R Lower Leg (including foot), Chest, Abdomen, Buttocks, Perineal Area Shower/Bathe Self (QC): 4 Upper Extremity Dressin Upper Body Dressing (QC): 4 Lower Extremity Dressin (Pt. required min assist to fully pull pants over hip and to don right shoe.) Lower Body Dressing (QC): 4 On/Off Footwear (QC): 4 Toiletin (SBA for toileting.) Toileting Hygiene (QC): 4 Toilet/Commode Transfer: 5 Toilet Transfer (QC): 4 Shower: 4 Assessment/Plan Assessment and Plan Assess & Plan/Chief Complaint Assessment: (1) Ischemic stroke 01/23/19 (2) S/P carotid endarterectomy 01/25/19 with no improvement in right sided weakness while at [facility] (3) PVD (peripheral vascular disease) (4) CAD (coronary artery disease) (5) Expressive aphasia- improved 02/02/19 (6) Right sided weakness (7) Anemia-iron def so starting iron 02/03/19 (8) Hypertension (9) S/P cataract extraction (10) Dysphagia (11) Hyperlipidemia (12) Constipation-resolved after meds (13) Klinefelter syndrome (14) Received intravenous tissue plasminogen activator (tPA) in emergency department 01/23/19 at [facility] ER (15) Depression (16) Former smoker (17) Hyponatremia improved on salt tablets and in process of weaning off (18) DVT prophylaxis (19) Urinary retention-consulted Urology, appreciate recs (20) Lee catheter was in place now DC but back with urinary retention s/p cysto so placed on Urecholine with Flomax and DC Lee and that is working well and voiding normally Plan: Patient doing extremely well Participating in all therapies as required Insurance approved 7 more days which will be asked him to just to get back to prior level of functioning Speech working with expressive aphasia May ultimately discontinue salt tablets and will start weaning today to 1 daily changed 02/12/19 Blood pressure well controlled on Norvasc 5 MG Checked labs for regular monitoring and checked sodium level since weaning salt tablets and all results normal (1) Ischemic stroke (2) Anemia Assessment & Plan: Start iron therapy (3) Expressive aphasia (4) CAD (coronary artery disease) (5) Dysphagia (6) Hyperlipidemia (7) PVD (peripheral vascular disease) (8) Hypertension (9) Right sided weakness (10) Klinefelter syndrome (11) Constipation (12) Depression (13) Hyponatremia (14) DVT prophylaxis (15) Received intravenous tissue plasminogen activator (tPA) in emergency department (16) Urinary retention Assessment & Plan: Resolved (17) Lee catheter in place Assessment & Plan: Resolved (18) S/P carotid endarterectomy (19) S/P cataract extraction (20) Former smoker BOOGIE WHITTEN DO Feb 19, 2019 08:25
--- NOTE | 2019-02-19 09:46 | NUR ---
BLAST FURNACE KEEPER HELPER sent updated clinical information to insurance provider with request for continued stay with an additional 7 days.
[2019-02-19] MEDS: prednisoLONE 1% OPTH (PRED FORTE) 5 ML BTL OS SCH ×4 (10:16→20:12)
[2019-02-19] MEDS: ASPIRIN 81 MG CHEW (CHILDREN'S ASA) PO SCH (10:16)
[2019-02-19] MEDS: BISOPROLOL 5 MG TAB (ZEBETA) PO SCH (10:16)
[2019-02-19] MEDS: CLOPIDOGREL 75 MG (PLAVIX) TABLET PO SCH (10:16)
[2019-02-19] MEDS: amLODIPine 5 MG (NORVASC) TAB PO SCH (10:17)
[2019-02-19] MEDS: DICLOFENAC 1% GEL 100 GM (VOLTAREN) TUBE TOP SCH ×2 (10:17→20:06)
[2019-02-19] MEDS: EYE PO SCH ×2 (10:18→20:12)
[2019-02-19] MEDS: POLYETHYLENE GLYCOL 17 GM (MIRALAX) PACK PO SCH ×2 (10:18→20:05)
[2019-02-19] MEDS: SENNA W/DOCUSATE (SENOKOT S) TABLET PO SCH ×2 (10:18→20:05)
[2019-02-19] MEDS: LIDOCAINE 4% (SALONPAS) PATCH TOP SCH (10:18)
[2019-02-19] MEDS: SIMBRINZA PO SCH ×2 (10:18→20:12)
[2019-02-19] MEDS: SERTRALINE 100 MG (ZOLOFT) TAB PO SCH (10:19)
[2019-02-19] MEDS: SODIUM CHLORIDE 1 GM TAB (NON-FORMULARY) PO SCH (10:20)
--- NOTE | 2019-02-19 11:30 | Occupational Ther Daily Note ---
OT Current Status-Daily Note Subjective Pt sitting in chair, has no c/o pain. Agrees to treatment. Mental Status/Objective Therapy Code Descriptions/Definitions Functional [place] Measure: 0=Not Assessed/NA 4=Minimal Assistance 1=Total Assistance 5=Supervision or Setup 2=Maximal Assistance 6=Modified [place] 3=Moderate Assistance 7=Complete [place] ADL-Treatment Pt declined bathing at this time, is already dressed. Therapy Code Descriptions/Definitions Functional [place] Measure: 0=Not Assessed/NA 4=Minimal Assistance 1=Total Assistance 5=Supervision or Setup 2=Maximal Assistance 6=Modified [place] 3=Moderate Assistance 7=Complete [place] Therapy Quality Codes: 6 Independent with activity with or without an assistive device 5 Patient requires set up or clean up by helper. Patient completes activity by themselves 4 Supervision or touching assist (CGA). [place] provide cues , steadying assist 3 The helper provides less than half the effort to complete the activity 2 The helper provides more than half the effort to complete the activity 1 Dependent. The helper does all the effort to complete an activity 7 Patient refused to complete or attempt activity 9 The patient did not perform the activity before the current illness or injury 88 Not attempted due to Medical conditions or safety concerns Other Treatment Gait to therapy gym with quad cane, no LOB noted. Pt completed nuts and bolts activity with bilateral hands to increase bilateral coordination. Pt has decreased coordination right hand, requires increased time and effort to complete task. Pt completed fine motor task of picking up checkers with right hand and placing them into container. Pt has mild difficulty with activity, but is able to complete with increased time. Arm bike x10 minutes to increase overall strength and activity tolerance needed for functional tasks. Pt has decreased grasp on right side, so [place] wrap was used to assist in maintaining straw hat presser. Pt completed activity with moderate resistance. No rest breaks needed. Pt performed bilateral UE activity to increase strength for ADLs and transfers. Pt performed shoulder flexion, forward press, biceps curls, and wrist flex/ext x10 reps using dowel robert. Right hand straw hat presser exercises x20 reps with moderate resistance therapy foam to increase straw hat presser strength. Pt returned to room, sitting in chair with need met after session. OT Short Term Goals Short Term Goals Time Frame: Feb 11, 2019 Eating(FIM): 4 Grooming(FIM): 44 Bathing(FIM): 3 Upper Body Dressing(FIM): 3 Lower Body Dressing(FIM): 3 Toileting(FIM): 4 Transfers (B,C,W/C) (FIM): 4 (met) Toilet/Commode Transfer(FIM): 4 Shower Transfer(FIM): 4 Additional Short Term Goals: 1-Demonstrate ADL Tasks, 2-Verbalize Understanding , 3-ImproveStrength/Gifty 1=Demonstrate adherence to instructed precautions during ADL tasks. 2=Patient will verbalize/demonstrate understanding of assistive devices/ modifications for ADL. 3=Patient will improve strength/tolerance for activity to enable patient to perform ADL's. OT Dust Control Engineer Goals Fpc Goals Time Frame: February 25, 2019 Eating (FIM): 6 Eating (QC): 6 Groomin Oral Hygiene (QC): 6 Bathing(FIM): 5 Shower/Bathe Self (QC): 5 Upper Body Dressing(FIM): 5 Upper Body Dressing (QC): 5 Lower Body Dressing(FIM): 5 Lower Body Dressing (QC): 5 On/Off Footwear (QC): 5 Toileting(FIM): 6 Toileting Hygiene (QC): 6 Transfers (B,C,W/C) (FIM): 6 Toilet/Commode Transfer(FIM): 6 Toilet/Commode Transfer (QC): 6 Shower Transfer(FIM): 5 Additional Goals: 1-Demonstrate ADL Tasks, 2-Verbalize Understanding, 3- ImproveStrength/Gifty 1=Demonstrate adherence to instructed precautions during ADL tasks. 2=Patient will verbalize/demonstrate understanding of assistive devices/ modifications for ADL. 3=Patient will improve strength/tolerance for activity to enable patient to perform ADL's. OT Education/Plan Problem List/Assessment pt continue to make progress toward all OT goals. pt would benefit from additional OT services to maximize rehab potential and to increase overall independence with ADLS/ functional transfers. Discharge Recommendations Plan/Recommendations: Continue POC Treatment Plan/Plan of Care Patient would benefit from OT for education, treatment and training to promote independence in ADL's, mobility, safety and/or upper extremity function for ADL' s. Plan of Care: ADL Retraining, Functional Mobility, Group Exercise/Act as Ind, UE Funct Exercise/Act Treatment Duration: February 25, 2019 Frequency: At least 5 of 7 days/Wk (IRF) Estimated Hrs Per Day: 1.5 hours per day Agreement: Yes Rehab Potential: Good Time/GCodes Start Time: 10:00 Stop Time: 10:55 Total Time Billed (hr/min): 55 Billed Treatment Time 1 visit, FAx2(30minutes), EXx2(25minutes) MORENO SAMPSON OT Feb 19, 2019 11:30
--- NOTE | 2019-02-19 12:43 | Physical Therapy Daily Note ---
PT Daily Note-Current Subjective A little more talkative today, hesitantly describing where he lives. Denies pain. Feeling more confident walking. Transfers Therapy Code Descriptions/Definitions Functional [place] Measure: 0=Not Assessed/NA 4=Minimal Assistance 1=Total Assistance 5=Supervision or Setup 2=Maximal Assistance 6=Modified [place] 3=Moderate Assistance 7=Complete [place] Therapy Quality Codes: 6 Independent with activity with or without an assistive device 5 Patient requires set up or clean up by helper. Patient completes activity by themselves 4 Supervision or touching assist (CGA). [place] provide cues , steadying assist 3 The helper provides less than half the effort to complete the activity 2 The helper provides more than half the effort to complete the activity 1 Dependent. The helper does all the effort to complete an activity 7 Patient refused to complete or attempt activity 9 The patient did not perform the activity before the current illness or injury 88 Not attempted due to Medical conditions or safety concerns Transfers (B, C, W/C) (FIM): 5 Scootin Rollin Sit to/from Stand: 6 Weight Bearing Right Lower Extremity: Right Full Weight Bearing Left Lower Extremity: Left Full Weight Bearing Gait Training Jeff amb without an assistive device with CGA - SBA x 1 from room to first floor (500 ft total) Amb up and down ramped sidewalk with handrail - using both right and left hands for min support. Amb up and down curb with SBA. Amb on uneven grass with CGA x 1. No loss of balance noted however he is cautious. Also when he fatigues his R LE has slower seing through with less clearance. He is at risk for falling when fatigued and needs to use quad cane when walking by himself. Neuromuscular Standing balance ex: eyes closed x 30, foam block x 30 sec, turns, reaching all directions. Attempted unilateral stance but unable more than 2 sec. Seated ex: MM reeducation R toes and ankles Assessment Current Status: Excellent Progress (Jeff walked well without an assistive device as long as he had SBA or CGA x 1 when he fatigues. Recommend using quad cane when he walks by himself. ) PT Short Term Goals Short Term Goals Time Frame: Feb 04, 2019 Transfers (B,C,W/C) (FIM): 4 (met) Gait (FIM): 1 (met) Gait Distance Comment: 20' Gait Level of Assist: 3 Gait Assistive Device: Walker Henry Wheelchair Distance: 80' PT Patient Safety Manager Goals Skilled Nursing Goals PT Skilled Nursing Goals Time Frame: Feb 18, 2019 Transfers (B,C,W/C) (FIM): 4 Sit to Lying (QC): 4 Lying-Sitting on Side/Bed(QC): 4 Sit to Stand (QC): 4 Rollin Roll Left to Right (QC): 4 Chair/Vht-vt-Uegue Xfer(QC): 4 Car Transfer (QC): 4 Gait (FIM): 2 Distance: 50' Walk 10 feet (QC): 3 Walk 10ft-Uneven Surface(QC): 3 Walk 50ft with 2 Turns (QC): 3 Gait Level of Assist: 4 Gait Assistive Device: Cane Large Base Quad Wheelchair (FIM): 6 Distance: 150' Wheelchair Level of Assist: 6 Wheel 50 feet with 2 turns (QC: 6 Stairs (FIM): 1 # of Steps: 1 1 Step (curb) (QC): 3 Stairs Level Of Assist: 4 PT Plan Treatment/Plan Treatment Plan: Continue Plan of Care Treatment Plan: Bed Mobility, Concurrent Therapy, Education, Functional Activity Gifty, Functional Strength, Group Therapy, Gait, Safety, Therapeutic Exercise, Transfers Treatment Duration: Feb 18, 2019 Frequency: At least 5 of 7 days/Wk (IRF) Estimated Hrs Per Day: 1.5 hours per day Patient and/or Family Agrees t: Yes Time/GCodes Time In: 815 Time Out: 900 Total Billed Treatment Time: 45 Total Billed Treatment 1 gt x 30 min, NM x 15 min LING DE LA O PT Feb 19, 2019 12:43
--- NOTE | 2019-02-19 14:24 | Speech Therapy Daily Note ---
Speech Daily Progress Note Subjective Date Seen by Provider: Feb 19, 2019 Time Seen by Provider: 00:30 The patient was resting in his recliner when I entered his room. Objective The patient completed general information questions with 80% accuracy given min to mod verbal and/or phonemic cues. Assessment Assessment Current Status: Good Progress Treatment Plan Continue Plan of Care Communication Comprehension: 6 Expression: 1 Social Cognition Social Interaction: 5 Problem Solvin Memory: 5 Speech Short Term Goals Short Term Goals Short Term Goals 1) The patient will demonstrate orientation to person, place time and situation with 75% accuracy provided with stimulation and choices. 2) The patient will demonstrate correct naming of ten functional simple items during therapy session. 3) The patient will vollow one-step verbal commands with mod verbal/visual cues with 80% accuracy. 4) The patient will tolerate least restrictive diet level without signs/ symptoms of aspiration. 5) The patient will utilize compensatory strategies as trained for safe oral intake at 90% given minimal cues. Speech Job Press Feeder Goals Job Press Feeder Goals 1) Patient will communicate basic wants and needs with 2-3 word phrases during therapy sessions. 2) Patient will maintain adequate nutrition/hydration via safe effective swallow function. Speech-Plan Patient/Family Goals Patient/Family Goals: The patient plans on returning home with his post rehab. Treatment Plan Speech Therapy Treatment Plan: Continue Plan of Care The patient is progressing with his expressive language. Treatment Duration: February 26, 2019 Frequency: 5 times per week Estimated Hrs Per Day: .5 hour per day Rehab Potential: Good Barriers to Learning: New CVA with moderate expressive aphasia. Pt/Family Agrees to Plan: Yes Safety Risks/Education Teaching Recipient: Patient Teaching Methods: Demonstration, Discussion Response to Teaching: Verbalize Understanding, Return Demonstration Education Topics Provided: Communication strategies reviewed. Time Speech Therapy Time In: 11:00 Speech Therapy Time Out: 11:30 Total Billed Time: 30 Billed Treatment Time 1, EMILY Rivero Feb 19, 2019 14:24
--- NOTE | 2019-02-19 14:30 | Speech Therapy Rehab Re-Cert ---
Speech Re-Certification Form Treatment Duration: Effective 02/05/2019 Speech Therapy Treatment Plan: Continue Plan of Care Visits Per Week: 5 Minutes/Day (M-F): 30 Rehab Potential: Good Barriers to Learning: New CVA and moderate expressive aphasia Patient and/or Family Agrees t: Yes Speech Short Term Goals Short Term Goals Short Term Goals 1) The patient will demonstrate orientation to person, place time and situation with 75% accuracy provided with stimulation and choices. 2) The patient will demonstrate correct naming of ten functional simple items during therapy session. 3) The patient will vollow one-step verbal commands with mod verbal/visual cues with 80% accuracy. 4) The patient will tolerate least restrictive diet level without signs/ symptoms of aspiration. 5) The patient will utilize compensatory strategies as trained for safe oral intake at 90% given minimal cues. Speech Logistics Management Specialist Goals Logistics Management Specialist Goals 1) Patient will communicate basic wants and needs with 2-3 word phrases during therapy sessions. 2) Patient will maintain adequate nutrition/hydration via safe effective swallow function. EMILY SUAREZ Feb 19, 2019 14:30
--- NOTE | 2019-02-19 14:39 | Therapy Group Daily Note ---
Therapy Daily Group Note Patient Education Topic Home Safety, Fall Prevention, Home Safety, Energy Cons Session Ratio (pt:therapist): 4:1 Goal of Session: Education on ARU Expectations, Energy Conservation Tech., Home Safety Strategies Goal Met for this Session: Yes Pt Benefit of Group: Contributions to Others, F/U Use of Strategies @Home, Increased Functional Safety, Recognition of Peers, Socialization Other/Notes Pt perform functional mobility with use of quad cane and CGA to OT group this pm. Pt introduced self to group for socialization. Education was provided regarding home safety including potential hazards and solutions for common problem areas. each room of home discussed in session. AE/ modification discussed to increase safety within home. Education also included energy conservation during functional tasks. Pt contributed appropriately to group discussion and was able to identify possible areas for improvement needed in her own home situation. Pt actively listened to education and states understanding. Pt returned to room, sitting in chair with needs met after session. Start Time: 13:00 Stop Time: 14:00 Total Billed Treatment GRP 60 minutes ANALY MEJIA OT Feb 19, 2019 14:39
[2019-02-19 17:22] VITALS: BP 138/74
[2019-02-19] MEDS: TAMSULOSIN 0.4 MG (FLOMAX) CAP PO SCH (17:44)
[2019-02-19] MEDS: LIDOCAINE PATCH REMOVAL TP SCH (20:06)
[2019-02-19] MEDS: ATORVASTATIN 80 MG (LIPITOR) TABLET PO SCH (20:12)
[2019-02-20] MEDS: BETHANECHOL 25 MG (URECHOLINE) TAB PO SCH ×4 (05:36→20:16)
[2019-02-20 05:47] VITALS: BP 117/64
--- NOTE | 2019-02-20 08:36 | PM&R Progress Note ---
Subjective HPI/CC On Admission Date Seen by Provider: Feb 20, 2019 Time Seen by Provider: 07:00 CC: Ischemic stroke HPI: This is a 63-year-old white male of Dr. Schultz who presented to via [facility] on 01/23/19 with abrupt onset of severe weakness on the right side underwent stroke workup and found to be a candidate for TPA then shipped to [facility] and subsequently underwent left carotid endarterectomy on 01/25/19 but still remains with right sided weakness with severe expressive aphasia. Reviewed the entire record at [facility] and reviewed his home medications and patient appears to be ready to start aggressive physical therapy in order regain function. His drove him from and reports that he did well on the trip. His [id number]-dlt is a nurse and she helped reviewed the discharge med list. He is currently on. Diet with nectar thickened liquids. CT scan via [facility] and [facility] showed a left ischemic process of the MCA distribution. During hospital course the he had no significant clinical decompensation. Patient requires inpatient rehabilitation with 24 hour physician supervision to monitor her labile blood pressure and monitor for any hemorrhagic residual from ischemic stroke that cannot be provided in any type of lower level of care. 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 Subjective/Events-last exam Patient progressing nicely Denies any pain Ate breakfast and he likes to eat roa No pain is reported when he urinates Bowels remain normal Reviewed meds and labs Conferred with RN Nurse has no concerns Reviewed physical therapy and Occupational Therapy and speech therapy notes Discharge likely in the near future to home with Review of Systems Neurological: Weakness, Numbness, Incoordination Objective Exam Vital Signs Vital Signs Date Time Temp Pulse Resp B/P (MAP) Pulse Ox O2 Delivery O2 Flow Rate FiO2 02/20/19 15:27 97.6 51 20 118/69 (85) 98 Room Air Capillary Refill : General Appearance: No Apparent Distress, WD/WN, Chronically ill HEENT: PERRL/EOMI, Pharynx Normal, Other (right facial droop) Neck: Full Range of Motion, Normal Inspection, Non Tender, Supple, Other ( incision left neck intact) Respiratory: Chest Non Tender, Lungs Clear, Normal Breath Sounds, No Accessory Muscle Use, No Respiratory Distress Cardiovascular: Regular Rate, Rhythm, No Edema, No Gallop, No JVD, No Murmur, Normal Peripheral Pulses Gastrointestinal: Normal Bowel Sounds, No Organomegaly, No Pulsatile Mass, Non Tender, Soft Back: Normal Inspection, No CVA Tenderness, No Vertebral Tenderness Extremity: Normal Capillary Refill, Normal Inspection, Non Tender, No Calf Tenderness, No Pedal Edema, Other (limited ROM right side and mild deficit left) Neurologic/Psychiatric: Alert, Normal Mood/Affect, Abnormal machine cage maker II-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 FIM Transfers Therapy Code Descriptions/Definitions Functional [place] Measure: 0=Not Assessed/NA 4=Minimal Assistance 1=Total Assistance 5=Supervision or Setup 2=Maximal Assistance 6=Modified [place] 3=Moderate Assistance 7=Complete [place] Therapy Quality Codes: 6 Independent with activity with or without an assistive device 5 Patient requires set up or clean up by helper. Patient completes activity by themselves 4 Supervision or touching assist (CGA). [place] provide cues , steadying assist 3 The helper provides less than half the effort to complete the activity 2 The helper provides more than half the effort to complete the activity 1 Dependent. The helper does all the effort to complete an activity 7 Patient refused to complete or attempt activity 9 The patient did not perform the activity before the current illness or injury 88 Not attempted due to Medical conditions or safety concerns Mental Status/Objective Comprehension: 6 Expression: 1 Social Interaction: 5 Problem Solvin Memory: 5 ADL-Treatment Feedin Eating (QC): 5 Groomin (SBA at sink seated to brush teeth and hair.) Oral Hygiene (QC): 4 Bathin (CGA in stance in shower for safety during dynamic tasks.) Bathing Location: L Arm, R Arm, L Upper Leg, R Upper Leg, L Lower Leg ( including foot), R Lower Leg (including foot), Chest, Abdomen, Buttocks, Perineal Area Shower/Bathe Self (QC): 4 Upper Extremity Dressin Upper Body Dressing (QC): 4 Lower Extremity Dressin (Pt. required min assist to fully pull pants over hip and to don right shoe.) Lower Body Dressing (QC): 4 On/Off Footwear (QC): 4 Toiletin (SBA for toileting.) Toileting Hygiene (QC): 4 Toilet/Commode Transfer: 5 Toilet Transfer (QC): 4 Shower: 4 Assessment/Plan Assessment and Plan Assess & Plan/Chief Complaint Assessment: (1) Ischemic stroke 01/23/19 (2) S/P carotid endarterectomy 01/25/19 with no improvement in right sided weakness while at [facility] (3) PVD (peripheral vascular disease) (4) CAD (coronary artery disease) (5) Expressive aphasia- improved 02/02/19 (6) Right sided weakness (7) Anemia-iron def so starting iron 02/03/19 (8) Hypertension (9) S/P cataract extraction (10) Dysphagia (11) Hyperlipidemia (12) Constipation-resolved after meds (13) Klinefelter syndrome (14) Received intravenous tissue plasminogen activator (tPA) in emergency department 01/23/19 at [facility] (15) Depression (16) Former smoker (17) Hyponatremia improved on salt tablets and in process of weaning off (18) DVT prophylaxis (19) Urinary retention-consulted Urology, appreciate recs (20) Lee catheter was in place now DC but back with urinary retention s/p cysto so placed on Urecholine with Flomax and DC Lee and that is working well and voiding normally Plan: Patient doing extremely well Participating in all therapies as required Insurance approved 7 more days which will be asked him to just to get back to prior level of functioning Speech working with expressive aphasia May ultimately discontinue salt tablets and will start weaning today to 1 daily changed 02/12/19 Blood pressure well controlled on Norvasc 5 MG Checked labs for regular monitoring and checked sodium level since weaning salt tablets and all results normal (1) Ischemic stroke (2) Anemia Assessment & Plan: Start iron therapy (3) Expressive aphasia (4) CAD (coronary artery disease) (5) Dysphagia (6) Hyperlipidemia (7) PVD (peripheral vascular disease) (8) Hypertension (9) Right sided weakness (10) Klinefelter syndrome (11) Constipation (12) Depression (13) Hyponatremia (14) DVT prophylaxis (15) Received intravenous tissue plasminogen activator (tPA) in emergency department (16) Urinary retention Assessment & Plan: Resolved (17) Lee catheter in place Assessment & Plan: Resolved (18) S/P carotid endarterectomy (19) S/P cataract extraction (20) Former smoker BOOGIE WHITTEN DO Feb 20, 2019 08:36
[2019-02-20] MEDS: BISOPROLOL 5 MG TAB (ZEBETA) PO SCH (08:59)
[2019-02-20] MEDS: prednisoLONE 1% OPTH (PRED FORTE) 5 ML BTL OS SCH ×4 (08:59→20:15)
[2019-02-20] MEDS: SIMBRINZA PO SCH ×2 (08:59→20:16)
[2019-02-20] MEDS: SODIUM CHLORIDE 1 GM TAB (NON-FORMULARY) PO SCH (08:59)
[2019-02-20] MEDS: CLOPIDOGREL 75 MG (PLAVIX) TABLET PO SCH (08:59)
[2019-02-20] MEDS: SERTRALINE 100 MG (ZOLOFT) TAB PO SCH (08:59)
[2019-02-20] MEDS: EYE PO SCH ×2 (08:59→20:16)
[2019-02-20] MEDS: POLYETHYLENE GLYCOL 17 GM (MIRALAX) PACK PO SCH ×2 (09:00→20:11)
[2019-02-20] MEDS: ASPIRIN 81 MG CHEW (CHILDREN'S ASA) PO SCH (09:00)
[2019-02-20] MEDS: SENNA W/DOCUSATE (SENOKOT S) TABLET PO SCH ×2 (09:00→20:12)
[2019-02-20] MEDS: DICLOFENAC 1% GEL 100 GM (VOLTAREN) TUBE TOP SCH ×2 (09:00→20:16)
[2019-02-20] MEDS: amLODIPine 5 MG (NORVASC) TAB PO SCH (09:00)
[2019-02-20] MEDS: LIDOCAINE 4% (SALONPAS) PATCH TOP SCH (09:00)
--- NOTE | 2019-02-20 13:13 | Physical Therapy Daily Note ---
PT Daily Note-Current Subjective Pt agreeable, denies pain. Mental Status Patient Orientation: Person, Place, Situation Transfers Therapy Code Descriptions/Definitions Functional [place] Measure: 0=Not Assessed/NA 4=Minimal Assistance 1=Total Assistance 5=Supervision or Setup 2=Maximal Assistance 6=Modified [place] 3=Moderate Assistance 7=Complete [place] Therapy Quality Codes: 6 Independent with activity with or without an assistive device 5 Patient requires set up or clean up by helper. Patient completes activity by themselves 4 Supervision or touching assist (CGA). [place] provide cues , steadying assist 3 The helper provides less than half the effort to complete the activity 2 The helper provides more than half the effort to complete the activity 1 Dependent. The helper does all the effort to complete an activity 7 Patient refused to complete or attempt activity 9 The patient did not perform the activity before the current illness or injury 88 Not attempted due to Medical conditions or safety concerns Transfers mod (I) Weight Bearing Right Lower Extremity: Right Full Weight Bearing Left Lower Extremity: Left Full Weight Bearing Gait Training Pt amb 2 x 70ft, 1 x 40ft CGA. Smooth, steady and slow gait. Exercises Standing: Heel/toe raises, 3 way Ex=Flex, Abd, Ext, Marching, Step-ups Standing Reps: 20 NuStep Minutes: 5 NuStep Workload: 5 Treatments Pt read white board out loud 6 fun facts while on nu-step, 100% accuracy. Practiced in //bars following commands for "(R) or (L)" performed 6" step ups and performed walking in //bars length of bars turning either R or L depending on the command called out. Pt was accurate with (R) and (L) commands. Pt practiced making his own coffee at the kitchen. Able to retrieve cup, pour coffee with (L), tear creamer packet and sugar packet. Required help to tear sugar packet only. Required this LINING SEWER to carry coffee to room. Assessment Current Status: Good Progress Pt octavio very well. Pt fatigued following treatment. (R) knee snapping into ext during standing december due to weakness. Progressing appropriately and would benefit from continued strengthening. Note, Jeff able to trouble shoot adjusting QC as needed to lengthen it this am. PT Short Term Goals Short Term Goals Time Frame: Feb 04, 2019 Transfers (B,C,W/C) (FIM): 4 (met) Gait (FIM): 1 (met) Gait Distance Comment: 20' Gait Level of Assist: 3 Gait Assistive Device: Walker Henry Wheelchair Distance: 80' PT Program Support Clerk Goals Program Support Clerk Goals PT Program Support Clerk Goals Time Frame: Feb 18, 2019 Transfers (B,C,W/C) (FIM): 4 Sit to Lying (QC): 4 Lying-Sitting on Side/Bed(QC): 4 Sit to Stand (QC): 4 Rollin Roll Left to Right (QC): 4 Chair/Jwk-hq-Bfdgx Xfer(QC): 4 Car Transfer (QC): 4 Gait (FIM): 2 Distance: 50' Walk 10 feet (QC): 3 Walk 10ft-Uneven Surface(QC): 3 Walk 50ft with 2 Turns (QC): 3 Gait Level of Assist: 4 Gait Assistive Device: Cane Large Base Quad Wheelchair (FIM): 6 Distance: 150' Wheelchair Level of Assist: 6 Wheel 50 feet with 2 turns (QC: 6 Stairs (FIM): 1 # of Steps: 1 1 Step (curb) (QC): 3 Stairs Level Of Assist: 4 PT Plan Treatment/Plan Treatment Plan: Continue Plan of Care Treatment Plan: Bed Mobility, Concurrent Therapy, Education, Functional Activity Gifty, Functional Strength, Group Therapy, Gait, Safety, Therapeutic Exercise, Transfers Treatment Duration: Feb 18, 2019 Frequency: At least 5 of 7 days/Wk (IRF) Estimated Hrs Per Day: 1.5 hours per day Patient and/or Family Agrees t: Yes Time/GCodes Time In: 800 Time Out: 835 Total Billed Treatment Time: 35 Total Billed Treatment 1, ther ex, gait JODI ANDREW CPTA Feb 20, 2019 13:13
[2019-02-20 15:27] VITALS: BP 118/69
[2019-02-20] MEDS: TAMSULOSIN 0.4 MG (FLOMAX) CAP PO SCH (18:34)
[2019-02-20] MEDS: ATORVASTATIN 80 MG (LIPITOR) TABLET PO SCH (20:16)
[2019-02-20] MEDS: LIDOCAINE PATCH REMOVAL TP SCH (20:17)
[2019-02-21 05:32] VITALS: BP 103/53
[2019-02-21] MEDS: BETHANECHOL 25 MG (URECHOLINE) TAB PO SCH ×4 (06:44→20:21)
[2019-02-21] MEDS: FERROUS SULF 325 MG (IRON) TAB PO SCH (06:44)
--- NOTE | 2019-02-21 07:26 | PM&R Progress Note ---
Subjective HPI/CC On Admission Date Seen by Provider: Feb 21, 2019 Time Seen by Provider: 07:00 CC: Ischemic stroke HPI: This is a 63-year-old white male of Dr. Schultz who presented to via [facility] ER on 01/23/19 with abrupt onset of severe weakness on the right side underwent stroke workup and found to be a candidate for TPA then shipped to [facility] and subsequently underwent left carotid endarterectomy on 01/25/19 but still remains with right sided weakness with severe expressive aphasia. Reviewed the entire record at [facility] and reviewed his home medications and patient appears to be ready to start aggressive physical therapy in order regain function. His drove him from and reports that he did well on the trip. His copaoc-rx-gxf is a nurse and she helped reviewed the discharge med list. He is currently on. Diet with nectar thickened liquids. CT scan via [facility] and [facility] showed a left ischemic process of the MCA distribution. During hospital course the he had no significant clinical decompensation. Patient requires inpatient rehabilitation with 24 hour physician supervision to monitor her labile blood pressure and monitor for any hemorrhagic residual from ischemic stroke that cannot be provided in any type of lower level of care. 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 Subjective/Events-last exam Patient progressing nicely and is resting today Friday from therapies Denies any pain and has had no falls or pain issues since he has been here Ate breakfast and is ordering what he wants now Urinates without difficulty. Bowels remain normal Reviewed meds and labs Conferred with RN and she has no concerns Reviewed physical therapy and Occupational Therapy and speech therapy notes Discharge likely in the near future to home with and he is in agreement with that plan Review of Systems Neurological: Weakness, Numbness, Incoordination, Confusion Objective Exam Vital Signs Vital Signs Date Time Temp Pulse Resp B/P (MAP) Pulse Ox O2 Delivery O2 Flow Rate FiO2 02/21/19 15:15 96.8 56 16 115/65 (82) 98 Room Air Capillary Refill : General Appearance: No Apparent Distress, WD/WN, Chronically ill HEENT: PERRL/EOMI, Pharynx Normal, Other (right facial droop) Neck: Full Range of Motion, Normal Inspection, Non Tender, Supple, Other ( incision left neck intact) Respiratory: Chest Non Tender, Lungs Clear, Normal Breath Sounds, No Accessory Muscle Use, No Respiratory Distress Cardiovascular: Regular Rate, Rhythm, No Edema, No Gallop, No JVD, No Murmur, Normal Peripheral Pulses Gastrointestinal: Normal Bowel Sounds, No Organomegaly, No Pulsatile Mass, Non Tender, Soft Back: Normal Inspection, No CVA Tenderness, No Vertebral Tenderness Extremity: Normal Capillary Refill, Normal Inspection, Non Tender, No Calf Tenderness, No Pedal Edema, Other (limited ROM right side and mild deficit left) Neurologic/Psychiatric: Alert, Normal Mood/Affect, 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 FIM Transfers Therapy Code Descriptions/Definitions Functional [place] Measure: 0=Not Assessed/NA 4=Minimal Assistance 1=Total Assistance 5=Supervision or Setup 2=Maximal Assistance 6=Modified [place] 3=Moderate Assistance 7=Complete [place] Therapy Quality Codes: 6 Independent with activity with or without an assistive device 5 Patient requires set up or clean up by helper. Patient completes activity by themselves 4 Supervision or touching assist (CGA). [place] provide cues , steadying assist 3 The helper provides less than half the effort to complete the activity 2 The helper provides more than half the effort to complete the activity 1 Dependent. The helper does all the effort to complete an activity 7 Patient refused to complete or attempt activity 9 The patient did not perform the activity before the current illness or injury 88 Not attempted due to Medical conditions or safety concerns Mental Status/Objective Comprehension: 6 Expression: 1 Social Interaction: 5 Problem Solvin Memory: 5 ADL-Treatment Feedin Eating (QC): 5 Groomin (SBA at sink seated to brush teeth and hair.) Oral Hygiene (QC): 4 Bathin (CGA in stance in shower for safety during dynamic tasks.) Bathing Location: L Arm, R Arm, L Upper Leg, R Upper Leg, L Lower Leg ( including foot), R Lower Leg (including foot), Chest, Abdomen, Buttocks, Perineal Area Shower/Bathe Self (QC): 4 Upper Extremity Dressin Upper Body Dressing (QC): 4 Lower Extremity Dressin (Pt. required min assist to fully pull pants over hip and to don right shoe.) Lower Body Dressing (QC): 4 On/Off Footwear (QC): 4 Toiletin (SBA for toileting.) Toileting Hygiene (QC): 4 Toilet/Commode Transfer: 5 Toilet Transfer (QC): 4 Shower: 4 Assessment/Plan Assessment and Plan Assess & Plan/Chief Complaint Assessment: (1) Ischemic stroke 01/23/19 (2) S/P carotid endarterectomy 01/25/19 with no improvement in right sided weakness while at [facility] (3) PVD (peripheral vascular disease) (4) CAD (coronary artery disease) (5) Expressive aphasia- improved 02/02/19 (6) Right sided weakness (7) Anemia-iron def so starting iron 02/03/19 (8) Hypertension (9) S/P cataract extraction (10) Dysphagia (11) Hyperlipidemia (12) Constipation-resolved after meds (13) Klinefelter syndrome (14) Received intravenous tissue plasminogen activator (tPA) in emergency department 01/23/19 at [facility] ER (15) Depression (16) Former smoker (17) Hyponatremia improved on salt tablets and in process of weaning off (18) DVT prophylaxis (19) Urinary retention-consulted Urology, appreciate recs (20) Lee catheter was in place now DC but back with urinary retention s/p cysto so placed on Urecholine with Flomax and DC Lee and that is working well and voiding normally Plan: Patient doing extremely well and will rest from therapy today and start another week of intensive therapy prior to DC home Participating in all therapies as required Insurance approved 7 more days which will be asked him to just to get back to prior level of functioning Speech working with expressive aphasia May ultimately discontinue salt tablets and will start weaning today to 1 daily changed 02/12/19 Blood pressure well controlled on Norvasc 5 MG Checked labs for regular monitoring and checked sodium level since weaning salt tablets and all results normal (1) Ischemic stroke (2) Anemia Assessment & Plan: Start iron therapy (3) Expressive aphasia (4) CAD (coronary artery disease) (5) Dysphagia (6) Hyperlipidemia (7) PVD (peripheral vascular disease) (8) Hypertension (9) Right sided weakness (10) Klinefelter syndrome (11) Constipation (12) Depression (13) Hyponatremia (14) DVT prophylaxis (15) Received intravenous tissue plasminogen activator (tPA) in emergency department (16) Urinary retention Assessment & Plan: Resolved (17) Lee catheter in place Assessment & Plan: Resolved (18) S/P carotid endarterectomy (19) S/P cataract extraction (20) Former smoker BOOGIE WHITTEN DO Feb 21, 2019 07:26
[2019-02-21] MEDS: POLYETHYLENE GLYCOL 17 GM (MIRALAX) PACK PO SCH ×2 (08:40→20:22)
[2019-02-21] MEDS: SENNA W/DOCUSATE (SENOKOT S) TABLET PO SCH ×2 (08:40→20:22)
[2019-02-21] MEDS: DICLOFENAC 1% GEL 100 GM (VOLTAREN) TUBE TOP SCH ×2 (08:41→20:21)
[2019-02-21] MEDS: LIDOCAINE 4% (SALONPAS) PATCH TOP SCH (08:41)
[2019-02-21] MEDS: EYE PO SCH ×2 (09:30→20:21)
[2019-02-21] MEDS: BISOPROLOL 5 MG TAB (ZEBETA) PO SCH (09:30)
[2019-02-21] MEDS: SERTRALINE 100 MG (ZOLOFT) TAB PO SCH (09:30)
[2019-02-21] MEDS: CLOPIDOGREL 75 MG (PLAVIX) TABLET PO SCH (09:30)
[2019-02-21] MEDS: amLODIPine 5 MG (NORVASC) TAB PO SCH (09:30)
[2019-02-21] MEDS: SIMBRINZA PO SCH ×2 (09:30→20:21)
[2019-02-21] MEDS: ASPIRIN 81 MG CHEW (CHILDREN'S ASA) PO SCH (09:30)
[2019-02-21] MEDS: prednisoLONE 1% OPTH (PRED FORTE) 5 ML BTL OS SCH ×4 (09:31→20:21)
[2019-02-21] MEDS: SODIUM CHLORIDE 1 GM TAB (NON-FORMULARY) PO SCH (09:32)
[2019-02-21] MEDS ORDERED: FERROUS SULF 325 MG (IRON) TAB PO NR (13:15)
[2019-02-21 15:15] VITALS: BP 115/65
[2019-02-21] MEDS: TAMSULOSIN 0.4 MG (FLOMAX) CAP PO SCH (17:48)
[2019-02-21] MEDS: ATORVASTATIN 80 MG (LIPITOR) TABLET PO SCH (20:21)
[2019-02-21] MEDS: LIDOCAINE PATCH REMOVAL TP SCH (20:22)
[2019-02-22 05:01] LABS: BASOPHILS % (AUTO) 1 % (0-10); EOSINOPHILS # (AUTO) 0.2 10^3/uL (0.0-0.3); EOSINOPHILS % (AUTO) 3 % (0-10); HEMATOCRIT 31 % (40-54); HEMOGLOBIN 10.3 G/DL (13.3-17.7); LYMPHOCYTES # (AUTO) 1.6 X 10^3 (1.0-4.0); LYMPHOCYTES % (AUTO) 22 % (12-44); MEAN CORPUSCULAR HEMOGLOBIN 29 PG (25-34); MEAN CORPUSCULAR HGB CONC 33 G/DL (32-36); MEAN CORPUSCULAR VOLUME 89 FL (80-99); MEAN PLATELET VOLUME 10.1 FL (7.4-10.4); MONOCYTES # (AUTO) 0.6 X 10^3 (0.0-1.0); MONOCYTES % (AUTO) 8 % (0-12); NEUTROPHILS # (AUTO) 4.7 X 10^3 (1.8-7.8); NEUTROPHILS % (AUTO) 66 % (42-75); PLATELET COUNT 247 10^3/uL (130-400); RED CELL DISTRIBUTION WIDTH 13.8 % (10.0-14.5); WHITE BLOOD COUNT 7.1 10^3/uL (4.3-11.0)
[2019-02-22 05:26] LABS: ALANINE AMINOTRANSFERASE 41 U/L (0-55); ALBUMIN 3.5 GM/DL (3.2-4.5); ALKALINE PHOSPHATASE 88 U/L (40-136); BILIRUBIN,TOTAL 0.3 MG/DL (0.1-1.0); BUN/CREATININE RATIO 19; CALCIUM 9.4 MG/DL (8.5-10.1); CARBON DIOXIDE 21 MMOL/L (21-32); CHLORIDE 109 MMOL/L (98-107); CREATININE SERUM 0.75 MG/DL (0.60-1.30); GFR ESTIMATED > 60; GLUCOSE 103 MG/DL (70-105); POTASSIUM 3.8 MMOL/L (3.6-5.0); SODIUM 140 MMOL/L (135-145); TOTAL PROTEIN 6.4 GM/DL (6.4-8.2)
[2019-02-22 05:44] VITALS: BP 116/65
[2019-02-22] MEDS: FERROUS SULF 325 MG (IRON) TAB PO SCH (06:18)
[2019-02-22] MEDS: BETHANECHOL 25 MG (URECHOLINE) TAB PO SCH ×4 (06:19→21:19)
--- NOTE | 2019-02-22 08:11 | PM&R Progress Note ---
Subjective HPI/CC On Admission Date Seen by Provider: Feb 22, 2019 Time Seen by Provider: 08:15 CC: Ischemic stroke HPI: This is a 63-year-old white male of Dr. Schultz who presented to via [facility] ER on 01/23/19 with abrupt onset of severe weakness on the right side underwent stroke workup and found to be a candidate for TPA then shipped to [facility] and subsequently underwent left carotid endarterectomy on 01/25/19 but still remains with right sided weakness with severe expressive aphasia. Reviewed the entire record at [facility] and reviewed his home medications and patient appears to be ready to start aggressive physical therapy in order regain function. His drove him from and reports that he did well on the trip. His iqnier-px-vno is a nurse and she helped reviewed the discharge med list. He is currently on. Diet with nectar thickened liquids. CT scan via [facility] and [facility] showed a left ischemic process of the MCA distribution. During hospital course the he had no significant clinical decompensation. Patient requires inpatient rehabilitation with 24 hour physician supervision to monitor her labile blood pressure and monitor for any hemorrhagic residual from ischemic stroke that cannot be provided in any type of lower level of care. 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 Subjective/Events-last exam Pt having a good day today. No urinary complaints. Bowels are moving. Dr. Schultz saw him yesterday and changed the iron to everyday instead of every other day since he has been tolerating it from a GI standpoint. Hemoccult stools have been ordered by Dr. Schultz. We will discontinue salt tablets due to sodium level within normal limits on labs today Disposition to home to live independently with his probably later this week Saw his and updated her on his progress Reviewed all therapy notes Conferred with pier hand helper of Systems Neurological: Weakness, Numbness, Incoordination, Confusion Objective Exam Vital Signs Vital Signs Date Time Temp Pulse Resp B/P (MAP) Pulse Ox O2 Delivery O2 Flow Rate FiO2 02/22/19 18:42 97.8 59 16 137/63 (87) 97 Room Air Capillary Refill : General Appearance: No Apparent Distress, WD/WN, Chronically ill HEENT: PERRL/EOMI, Pharynx Normal, Other (right facial droop) Neck: Full Range of Motion, Normal Inspection, Non Tender, Supple, Other ( incision left neck intact) Respiratory: Chest Non Tender, Lungs Clear, Normal Breath Sounds, No Accessory Muscle Use, No Respiratory Distress Cardiovascular: Regular Rate, Rhythm, No Edema, No Gallop, No JVD, No Murmur, Normal Peripheral Pulses Gastrointestinal: Normal Bowel Sounds, No Organomegaly, No Pulsatile Mass, Non Tender, Soft Back: Normal Inspection, No CVA Tenderness, No Vertebral Tenderness Extremity: Normal Capillary Refill, Normal Inspection, Non Tender, No Calf Tenderness, No Pedal Edema, Other (limited ROM right side and mild deficit left) Neurologic/Psychiatric: Alert, Normal Mood/Affect, 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 FIM Transfers Therapy Code Descriptions/Definitions Functional [place] Measure: 0=Not Assessed/NA 4=Minimal Assistance 1=Total Assistance 5=Supervision or Setup 2=Maximal Assistance 6=Modified [place] 3=Moderate Assistance 7=Complete [place] Therapy Quality Codes: 6 Independent with activity with or without an assistive device 5 Patient requires set up or clean up by helper. Patient completes activity by themselves 4 Supervision or touching assist (CGA). [place] provide cues , steadying assist 3 The helper provides less than half the effort to complete the activity 2 The helper provides more than half the effort to complete the activity 1 Dependent. The helper does all the effort to complete an activity 7 Patient refused to complete or attempt activity 9 The patient did not perform the activity before the current illness or injury 88 Not attempted due to Medical conditions or safety concerns Mental Status/Objective Comprehension: 6 Expression: 1 Social Interaction: 5 Problem Solvin Memory: 5 ADL-Treatment Feedin Eating (QC): 5 Groomin (SBA at sink seated to brush teeth and hair.) Oral Hygiene (QC): 4 Bathin (CGA in stance in shower for safety during dynamic tasks.) Bathing Location: L Arm, R Arm, L Upper Leg, R Upper Leg, L Lower Leg ( including foot), R Lower Leg (including foot), Chest, Abdomen, Buttocks, Perineal Area Shower/Bathe Self (QC): 4 Upper Extremity Dressin Upper Body Dressing (QC): 4 Lower Extremity Dressin (Pt. required min assist to fully pull pants over hip and to don right shoe.) Lower Body Dressing (QC): 4 On/Off Footwear (QC): 4 Toiletin (SBA for toileting.) Toileting Hygiene (QC): 4 Toilet/Commode Transfer: 5 Toilet Transfer (QC): 4 Shower: 4 Assessment/Plan Assessment and Plan Assess & Plan/Chief Complaint Assessment: (1) Ischemic stroke 01/23/19 (2) S/P carotid endarterectomy 01/25/19 with no improvement in right sided weakness while at [facility] (3) PVD (peripheral vascular disease) (4) CAD (coronary artery disease) (5) Expressive aphasia- improved 02/02/19 (6) Right sided weakness (7) Anemia-iron def so starting iron 02/03/19 (8) Hypertension (9) S/P cataract extraction (10) Dysphagia (11) Hyperlipidemia (12) Constipation-resolved after meds (13) Klinefelter syndrome (14) Received intravenous tissue plasminogen activator (tPA) in emergency department 01/23/19 at [facility] ER (15) Depression (16) Former smoker (17) Hyponatremia improved on salt tablets and in process of weaning off (18) DVT prophylaxis (19) Urinary retention-consulted Urology, appreciate recs (20) Lee catheter was in place now DC but back with urinary retention s/p cysto so placed on Urecholine with Flomax and DC Lee and that is working well and voiding normally Plan: Patient doing extremely well and will rest from therapy today and start another week of intensive therapy prior to DC home Participating in all therapies as required Attempting to get back to prior level of functioning Speech working with expressive aphasia DC salt tablets now Blood pressure well controlled on Norvasc 5 MG Checked labs for regular monitoring and checked sodium level since weaning salt tablets and all results normal (1) Ischemic stroke (2) Anemia Assessment & Plan: Start iron therapy (3) Expressive aphasia (4) CAD (coronary artery disease) (5) Dysphagia (6) Hyperlipidemia (7) PVD (peripheral vascular disease) (8) Hypertension (9) Right sided weakness (10) Klinefelter syndrome (11) Constipation (12) Depression (13) Hyponatremia (14) DVT prophylaxis (15) Received intravenous tissue plasminogen activator (tPA) in emergency department (16) Urinary retention Assessment & Plan: Resolved (17) Lee catheter in place Assessment & Plan: Resolved (18) S/P carotid endarterectomy (19) S/P cataract extraction (20) Former smoker BOOGIE WHITTEN DO Feb 22, 2019 08:11
[2019-02-22] MEDS: POLYETHYLENE GLYCOL 17 GM (MIRALAX) PACK PO SCH ×2 (08:55→19:59)
[2019-02-22] MEDS: SODIUM CHLORIDE 1 GM TAB (NON-FORMULARY) PO SCH (08:56)
[2019-02-22] MEDS: SERTRALINE 100 MG (ZOLOFT) TAB PO SCH (09:20)
[2019-02-22] MEDS: BISOPROLOL 5 MG TAB (ZEBETA) PO SCH (09:20)
[2019-02-22] MEDS: EYE PO SCH ×2 (09:20→21:19)
[2019-02-22] MEDS: ASPIRIN 81 MG CHEW (CHILDREN'S ASA) PO SCH (09:20)
[2019-02-22] MEDS: prednisoLONE 1% OPTH (PRED FORTE) 5 ML BTL OS SCH ×4 (09:20→21:19)
[2019-02-22] MEDS: amLODIPine 5 MG (NORVASC) TAB PO SCH (09:20)
[2019-02-22] MEDS: SIMBRINZA PO SCH ×2 (09:20→21:19)
[2019-02-22] MEDS: LIDOCAINE 4% (SALONPAS) PATCH TOP SCH (09:20)
[2019-02-22] MEDS: SENNA W/DOCUSATE (SENOKOT S) TABLET PO SCH ×2 (09:20→21:19)
[2019-02-22] MEDS: CLOPIDOGREL 75 MG (PLAVIX) TABLET PO SCH (09:20)
[2019-02-22] MEDS: DICLOFENAC 1% GEL 100 GM (VOLTAREN) TUBE TOP SCH ×2 (09:21→20:00)
--- NOTE | 2019-02-22 10:31 | Physical Therapy Daily Note ---
PT Daily Note-Current Subjective Pt laying Supine in bed upon arrival. Pt agrees to PT. Pain Location: No Pain Reported Mental Status Patient Orientation: Person, Place, Situation Transfers Therapy Code Descriptions/Definitions Functional [place] Measure: 0=Not Assessed/NA 4=Minimal Assistance 1=Total Assistance 5=Supervision or Setup 2=Maximal Assistance 6=Modified [place] 3=Moderate Assistance 7=Complete [place] Therapy Quality Codes: 6 Independent with activity with or without an assistive device 5 Patient requires set up or clean up by helper. Patient completes activity by themselves 4 Supervision or touching assist (CGA). [place] provide cues , steadying assist 3 The helper provides less than half the effort to complete the activity 2 The helper provides more than half the effort to complete the activity 1 Dependent. The helper does all the effort to complete an activity 7 Patient refused to complete or attempt activity 9 The patient did not perform the activity before the current illness or injury 88 Not attempted due to Medical conditions or safety concerns Scootin Rollin Supine to/from Sit: 5 Sit to/from Stand: 5 Sit to Stand (QC): 5 Weight Bearing Right Lower Extremity: Right Full Weight Bearing Left Lower Extremity: Left Full Weight Bearing Gait Training Does the Patient Walk?: Yes Distance (FIM): 3=150 ft Distance: 150' Walk 10 feet (QC): 5 Walk 50 ft with 2 Turns(QC): 5 Walk 150 ft (QC): 5 Gait Level of Assist: 5 Gait Persons Needed: 1 Gait Assistive Device: Cane Large Base Quad STEAM DRIER TENDER focused on pt picking up R foot to prevent dragging. Pt is improving until end of tx as he fatigues. Wheelchair Training Does the Pt Use a Wheelchair?: No Stair Training Stair Training: Handrails/: 2 handrails #of Steps: 8 1 Step (curb) (QC): 5 4 Steps (QC): 5 Stairs: Pattern: Step to Level of Assist: 5 STEAM DRIER TENDER stays at close SBA. Pt fatigues after 2 sets of 4 steps, takes short RB then another 2 sets of 4 steps. Exercises NuStep Minutes: 10 NuStep Workload: 5 Treatments Pt transfers from bed to standing then ambulates in hallway. Pt ambulates 2 sets of 4 steps then short RB followed by 2 more sets of 4 steps. Pt uses NuStep for 10m at [facility] 5 then ambulates in hallway before returning to room to rest in recliner. Pt has all needs met. Assessment Current Status: Good Progress Pt is improving with strength, seen with better control of mobility and less impulsivity. PT Short Term Goals Short Term Goals Time Frame: Feb 04, 2019 Transfers (B,C,W/C) (FIM): 4 (met) Gait (FIM): 1 (met) Gait Distance Comment: 20' Gait Level of Assist: 3 Gait Assistive Device: Walker Henry Wheelchair Distance: 80' PT Bonsai Culturist Goals Senior Living Goals PT Bonsai Culturist Goals Time Frame: Feb 18, 2019 Transfers (B,C,W/C) (FIM): 4 Sit to Lying (QC): 4 Lying-Sitting on Side/Bed(QC): 4 Sit to Stand (QC): 4 Rollin Roll Left to Right (QC): 4 Chair/Pvj-yc-Rwrzc Xfer(QC): 4 Car Transfer (QC): 4 Gait (FIM): 2 Distance: 50' Walk 10 feet (QC): 3 Walk 10ft-Uneven Surface(QC): 3 Walk 50ft with 2 Turns (QC): 3 Gait Level of Assist: 4 Gait Assistive Device: Cane Large Base Quad Wheelchair (FIM): 6 Distance: 150' Wheelchair Level of Assist: 6 Wheel 50 feet with 2 turns (QC: 6 Stairs (FIM): 1 # of Steps: 1 1 Step (curb) (QC): 3 Stairs Level Of Assist: 4 PT Plan Problem List Problem List: Activity Tolerance, Safety, Gait Treatment/Plan Treatment Plan: Continue Plan of Care Treatment Plan: Bed Mobility, Concurrent Therapy, Education, Functional Activity Gifty, Functional Strength, Group Therapy, Gait, Safety, Therapeutic Exercise, Transfers Treatment Duration: Feb 18, 2019 Frequency: At least 5 of 7 days/Wk (IRF) Estimated Hrs Per Day: 1.5 hours per day Patient and/or Family Agrees t: Yes Safety Risks/Education Patient Education: Gait Training, Correct Positioning, Safety Issues Teaching Recipient: Patient Teaching Methods: Discussion Response to Teaching: Verbalize Understanding Time/GCodes Time In: 930 Time Out: 1015 Total Billed Treatment Time: 45 Total Billed Treatment 1, GT (15m), FA (15m) & EX (15m) G Codes Necessary: JASMIN Calero STEAM DRIER TENDER Feb 22, 2019 10:31
--- NOTE | 2019-02-22 11:06 | NUR ---
provided prayer and Communion.
--- NOTE | 2019-02-22 14:02 | Physical Therapy Daily Note ---
PT Daily Note-Current Subjective Pt sitting in recliner upon arrival. Pt agrees to PT. Pain Location: No Pain Reported Mental Status Patient Orientation: Person, Place, Situation Transfers Therapy Code Descriptions/Definitions Functional [place] Measure: 0=Not Assessed/NA 4=Minimal Assistance 1=Total Assistance 5=Supervision or Setup 2=Maximal Assistance 6=Modified [place] 3=Moderate Assistance 7=Complete [place] Therapy Quality Codes: 6 Independent with activity with or without an assistive device 5 Patient requires set up or clean up by helper. Patient completes activity by themselves 4 Supervision or touching assist (CGA). [place] provide cues , steadying assist 3 The helper provides less than half the effort to complete the activity 2 The helper provides more than half the effort to complete the activity 1 Dependent. The helper does all the effort to complete an activity 7 Patient refused to complete or attempt activity 9 The patient did not perform the activity before the current illness or injury 88 Not attempted due to Medical conditions or safety concerns Scootin Sit to/from Stand: 5 Sit to Stand (QC): 5 Weight Bearing Right Lower Extremity: Right Full Weight Bearing Left Lower Extremity: Left Full Weight Bearing Gait Training Does the Patient Walk?: Yes Distance (FIM): 3=150 ft Distance: 175' Walk 10 feet (QC): 5 Walk 50 ft with 2 Turns(QC): 5 Walk 150 ft (QC): 5 Gait Level of Assist: 5 Gait Persons Needed: 1 Gait Assistive Device: Cane Large Base Quad Pt focuses on improved DF while ambulating so R foot does not drag toes. Wheelchair Training Does the Pt Use a Wheelchair?: No Stair Training Stair Training: Handrails/: 2 handrails #of Steps: 12 1 Step (curb) (QC): 5 4 Steps (QC): 5 12 Steps (QC): 5 Stairs: Pattern: Step to Level of Assist: 5 RECONSTRUCTIVE DENTIST gives VC to crab picker R foot so as not to catch it on the ascending step. RECONSTRUCTIVE DENTIST also asks pt to stand and rest if necessary to regroup before ascending/ descending steps. Treatments Pt transfers from recliner to standing and ambulates in hallway. Pt ambulates 3 sets of 4 steps before resting. Pt ambulates in hallway before returning to room to rest in recliner at end of tx. Pt has all needs met. Assessment Current Status: Good Progress Pt is improving with strength and control of movement. PT Short Term Goals Short Term Goals Time Frame: Feb 04, 2019 Transfers (B,C,W/C) (FIM): 4 (met) Gait (FIM): 1 (met) Gait Distance Comment: 20' Gait Level of Assist: 3 Gait Assistive Device: Walker Henry Wheelchair Distance: 80' PT Rn Burn Goals Rn Burn Goals PT Rn Burn Goals Time Frame: Feb 18, 2019 Transfers (B,C,W/C) (FIM): 4 Sit to Lying (QC): 4 Lying-Sitting on Side/Bed(QC): 4 Sit to Stand (QC): 4 Rollin Roll Left to Right (QC): 4 Chair/[id number] Xfer(QC): 4 Car Transfer (QC): 4 Gait (FIM): 2 Distance: 50' Walk 10 feet (QC): 3 Walk 10ft-Uneven Surface(QC): 3 Walk 50ft with 2 Turns (QC): 3 Gait Level of Assist: 4 Gait Assistive Device: Cane Large Base Quad Wheelchair (FIM): 6 Distance: 150' Wheelchair Level of Assist: 6 Wheel 50 feet with 2 turns (QC: 6 Stairs (FIM): 1 # of Steps: 1 1 Step (curb) (QC): 3 Stairs Level Of Assist: 4 PT Plan Problem List Problem List: Activity Tolerance, Gait Treatment/Plan Treatment Plan: Continue Plan of Care Treatment Plan: Bed Mobility, Concurrent Therapy, Education, Functional Activity Gifty, Functional Strength, Group Therapy, Gait, Safety, Therapeutic Exercise, Transfers Treatment Duration: Feb 18, 2019 Frequency: At least 5 of 7 days/Wk (IRF) Estimated Hrs Per Day: 1.5 hours per day Patient and/or Family Agrees t: Yes Safety Risks/Education Patient Education: Gait Training, Steps, Correct Positioning, Safety Issues Teaching Recipient: Patient Teaching Methods: Discussion Response to Teaching: Verbalize Understanding, Return Demonstration Time/GCodes Time In: 1330 Time Out: 1400 Total Billed Treatment Time: 30 Total Billed Treatment 1,GT x2 (30m) G Codes Necessary: JASMIN Calero RECONSTRUCTIVE DENTIST Feb 22, 2019 14:02
--- NOTE | 2019-02-22 14:42 | Speech Therapy Daily Note ---
Speech Daily Progress Note Subjective Date Seen by Provider: Feb 22, 2019 Time Seen by Provider: 00:30 The patient was awake and alert, participated well with skilled expressive language therapy; Objective The patient completed memory tasks related to himself and his daily needs with 80% accuracy given min to mod verbal cuing. Communication Comprehension: 6 Expression: 1 Social Cognition Social Interaction: 5 Problem Solvin Memory: 5 Speech Short Term Goals Short Term Goals Short Term Goals 1) The patient will demonstrate orientation to person, place time and situation with 75% accuracy provided with stimulation and choices. 2) The patient will demonstrate correct naming of ten functional simple items during therapy session. 3) The patient will vollow one-step verbal commands with mod verbal/visual cues with 80% accuracy. 4) The patient will tolerate least restrictive diet level without signs/ symptoms of aspiration. 5) The patient will utilize compensatory strategies as trained for safe oral intake at 90% given minimal cues. Speech Automotive Artist Goals Automotive Artist Goals 1) Patient will communicate basic wants and needs with 2-3 word phrases during therapy sessions. 2) Patient will maintain adequate nutrition/hydration via safe effective swallow function. Speech-Plan Patient/Family Goals Patient/Family Goals: The patient plans on returning home with his post rehab. Treatment Plan Speech Therapy Treatment Plan: Continue Plan of Care The patient has progressed well as a result of skilled ST services. Treatment Duration: February 26, 2019 Frequency: 5 times per week Estimated Hrs Per Day: .5 hour per day Rehab Potential: Good Barriers to Learning: New CVA, moderate expressive aphasia Pt/Family Agrees to Plan: Yes Safety Risks/Education Teaching Recipient: Patient Teaching Methods: Discussion Response to Teaching: Verbalize Understanding Education Topics Provided: Communication strategies Time Speech Therapy Time In: 09:00 Speech Therapy Time Out: 09:30 Total Billed Time: 30 Billed Treatment Time 1, EMILY Rivero Feb 22, 2019 14:42
--- NOTE | 2019-02-22 15:54 | Occupational Ther Daily Note ---
OT Current Status-Daily Note Subjective No pain reported. Appearance Pt. up in chair. Agrees to treatment. Mental Status/Objective Patient Orientation: Person, Place Therapy Code Descriptions/Definitions Functional [place] Measure: 0=Not Assessed/NA 4=Minimal Assistance 1=Total Assistance 5=Supervision or Setup 2=Maximal Assistance 6=Modified [place] 3=Moderate Assistance 7=Complete [place] ADL-Treatment Therapy Code Descriptions/Definitions Functional [place] Measure: 0=Not Assessed/NA 4=Minimal Assistance 1=Total Assistance 5=Supervision or Setup 2=Maximal Assistance 6=Modified [place] 3=Moderate Assistance 7=Complete [place] Therapy Quality Codes: 6 Independent with activity with or without an assistive device 5 Patient requires set up or clean up by helper. Patient completes activity by themselves 4 Supervision or touching assist (CGA). [place] provide cues , steadying assist 3 The helper provides less than half the effort to complete the activity 2 The helper provides more than half the effort to complete the activity 1 Dependent. The helper does all the effort to complete an activity 7 Patient refused to complete or attempt activity 9 The patient did not perform the activity before the current illness or injury 88 Not attempted due to Medical conditions or safety concerns Grooming (FIM): 5 (Set up) Oral Hygiene (QC): 5 Bathing (FIM): 5 (SBA in shower to wash all parts.) Shower/Bathe Self (QC): 4 Upper Body (FIM): 5 Upper Body Dressing (QC): 4 Lower Body Dressing (FIM): 4 (Pt. is able to don all LE clothing pieces except for right shoe. Does need some assist with that.) Lower Body Dressing (QC): 4 On/Off Footwear (QC): 4 Transfers (B, C, W/C) (FIM): 4 (CGA in stance with quad cane. Pt. does still have some LOB at times.) Shower Transfer(FIM): 4 Other Treatment After ADLs in room, pt. ambulated to therapy gym. Tolerated 15 minutes on armbike at mod resistance to increase overall strength. OT applied romeo wrap to right hand to armbike to make sure that it stayed in place. After this task, pt. completed 6 bilateral UE exercises, 2 lb. dumbbell in right hand, 3 lb. dumbbell in left, x 15 reps, x 3 sets overall. Worked on upper body strength and endurance. Spouse came into gym. Pt. nor spouse have any questions or concerns at this time. All needs met back in room. Education OT Patient Education: Correct positioning, Exercise program, Home exercise program, Modified ADL techniques, Progress toward Goal/Update tx plan, Purpose of tx/functional activities, Reviewed precautions, Rehab process, Transfer techniques Teaching Recipient: Patient, Family Teaching Methods: Demonstration, Discussion Response to Teaching: Verbalize Understanding, Return Demonstration OT Short Term Goals Short Term Goals Time Frame: Feb 11, 2019 Eating(FIM): 4 Grooming(FIM): 44 Bathing(FIM): 3 Upper Body Dressing(FIM): 3 Lower Body Dressing(FIM): 3 Toileting(FIM): 4 Transfers (B,C,W/C) (FIM): 4 (met) Toilet/Commode Transfer(FIM): 4 Shower Transfer(FIM): 4 Additional Short Term Goals: 1-Demonstrate ADL Tasks, 2-Verbalize Understanding , 3-ImproveStrength/Gifty 1=Demonstrate adherence to instructed precautions during ADL tasks. 2=Patient will verbalize/demonstrate understanding of assistive devices/ modifications for ADL. 3=Patient will improve strength/tolerance for activity to enable patient to perform ADL's. OT Cafe Assistant Goals Longterm Goals Time Frame: February 25, 2019 Eating (FIM): 6 Eating (QC): 6 Groomin Oral Hygiene (QC): 6 Bathing(FIM): 5 Shower/Bathe Self (QC): 5 Upper Body Dressing(FIM): 5 Upper Body Dressing (QC): 5 Lower Body Dressing(FIM): 5 Lower Body Dressing (QC): 5 On/Off Footwear (QC): 5 Toileting(FIM): 6 Toileting Hygiene (QC): 6 Transfers (B,C,W/C) (FIM): 6 Toilet/Commode Transfer(FIM): 6 Toilet/Commode Transfer (QC): 6 Shower Transfer(FIM): 5 Additional Goals: 1-Demonstrate ADL Tasks, 2-Verbalize Understanding, 3- ImproveStrength/Gifty 1=Demonstrate adherence to instructed precautions during ADL tasks. 2=Patient will verbalize/demonstrate understanding of assistive devices/ modifications for ADL. 3=Patient will improve strength/tolerance for activity to enable patient to perform ADL's. OT Education/Plan Problem List/Assessment Assessment: Decreased Activ Tolerance, Decreased UE Strength, Impaired Funct Balance, Impaired I ADL's, Impaired Self-Care Skills pt continue to make progress toward all OT goals. pt would benefit from additional OT services to maximize rehab potential and to increase overall independence with ADLS/ functional transfers. Discharge Recommendations Plan/Recommendations: Continue POC Therapy D/C Recommendations: Home w/ Family Support, Occupational Therapy Home Care Treatment Plan/Plan of Care Treatment,Training & Education: Yes Patient would benefit from OT for education, treatment and training to promote independence in ADL's, mobility, safety and/or upper extremity function for ADL' s. Plan of Care: ADL Retraining, Functional Mobility, Group Exercise/Act as Ind, UE Funct Exercise/Act Treatment Duration: February 25, 2019 Frequency: At least 5 of 7 days/Wk (IRF) Estimated Hrs Per Day: 1.5 hours per day Agreement: Yes Rehab Potential: Good Time/GCodes Start Time: 11:00 Stop Time: 12:15 Total Time Billed (hr/min): 75 Billed Treatment Time 1, ADL x 45minutes, Ex x 30minutes PAULETTE HALL OT Feb 22, 2019 15:54
[2019-02-22] MEDS: TAMSULOSIN 0.4 MG (FLOMAX) CAP PO SCH (16:51)
[2019-02-22 18:42] VITALS: BP 137/63
[2019-02-22] MEDS: LIDOCAINE PATCH REMOVAL TP SCH (20:00)
[2019-02-22] MEDS: ATORVASTATIN 80 MG (LIPITOR) TABLET PO SCH (21:19)
[2019-02-23] MEDS: BETHANECHOL 25 MG (URECHOLINE) TAB PO SCH ×4 (06:17→20:10)
[2019-02-23] MEDS: FERROUS SULF 325 MG (IRON) TAB PO SCH (06:17)
[2019-02-23 06:19] VITALS: BP 139/63
--- NOTE | 2019-02-23 08:00 | NUR ---
PATIENT FEELS BALANCE IS IMPROVED. STILL POOR USE OF RIGHT HAND. NO OTHER COMPLAINTS.
--- NOTE | 2019-02-23 08:55 | PM&R Progress Note ---
Subjective HPI/CC On Admission Date Seen by Provider: Feb 23, 2019 Time Seen by Provider: 08:30 CC: Ischemic stroke HPI: This is a 63-year-old white male of Dr. Schultz who presented to via [facility] ER on 01/23/19 with abrupt onset of severe weakness on the right side underwent stroke workup and found to be a candidate for TPA then shipped to [facility] and subsequently underwent left carotid endarterectomy on 01/25/19 but still remains with right sided weakness with severe expressive aphasia. Reviewed the entire record at [facility] and reviewed his home medications and patient appears to be ready to start aggressive physical therapy in order regain function. His drove him from and reports that he did well on the trip. His [id number] is a nurse and she helped reviewed the discharge med list. He is currently on. Diet with nectar thickened liquids. CT scan via [facility] and [facility] showed a left ischemic process of the MCA distribution. During hospital course the he had no significant clinical decompensation. Patient requires inpatient rehabilitation with 24 hour physician supervision to monitor her labile blood pressure and monitor for any hemorrhagic residual from ischemic stroke that cannot be provided in any type of lower level of care. 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 Subjective/Events-last exam Today is his birthday Hemoccult that was sent down under Dr. Schultz's direction was positive for blood. Dr. Schultz will be notified of the hemoccult positive stools. Balance is much better. Still has significant weakness in his hand. Reviewed therapy notes. Conferred with RN. No other concerns from the Pt. Objective Exam Vital Signs Vital Signs Date Time Temp Pulse Resp B/P (MAP) Pulse Ox O2 Delivery O2 Flow Rate FiO2 02/23/19 17:16 Room Air 02/23/19 15:38 96.8 59 14 129/64 (85) 98 Capillary Refill : General Appearance: No Apparent Distress, WD/WN, Chronically ill HEENT: PERRL/EOMI, Pharynx Normal, Other (right facial droop) Neck: Full Range of Motion, Normal Inspection, Non Tender, Supple, Other ( incision left neck intact) Respiratory: Chest Non Tender, Lungs Clear, Normal Breath Sounds, No Accessory Muscle Use, No Respiratory Distress Cardiovascular: Regular Rate, Rhythm, No Edema, No Gallop, No JVD, No Murmur, Normal Peripheral Pulses Gastrointestinal: Normal Bowel Sounds, No Organomegaly, No Pulsatile Mass, Non Tender, Soft Back: Normal Inspection, No CVA Tenderness, No Vertebral Tenderness Extremity: Normal Capillary Refill, Normal Inspection, Non Tender, No Calf Tenderness, No Pedal Edema, Other (limited ROM right side and mild deficit left) Neurologic/Psychiatric: Alert, Normal Mood/Affect, Abnormal information systems administrator II-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 FIM Transfers Therapy Code Descriptions/Definitions Functional [place] Measure: 0=Not Assessed/NA 4=Minimal Assistance 1=Total Assistance 5=Supervision or Setup 2=Maximal Assistance 6=Modified [place] 3=Moderate Assistance 7=Complete [place] Therapy Quality Codes: 6 Independent with activity with or without an assistive device 5 Patient requires set up or clean up by helper. Patient completes activity by themselves 4 Supervision or touching assist (CGA). [place] provide cues , steadying assist 3 The helper provides less than half the effort to complete the activity 2 The helper provides more than half the effort to complete the activity 1 Dependent. The helper does all the effort to complete an activity 7 Patient refused to complete or attempt activity 9 The patient did not perform the activity before the current illness or injury 88 Not attempted due to Medical conditions or safety concerns Mental Status/Objective Comprehension: 6 Expression: 1 Social Interaction: 5 Problem Solvin Memory: 5 ADL-Treatment Feedin Eating (QC): 5 Groomin (Set up) Oral Hygiene (QC): 5 Bathin (SBA in shower to wash all parts.) Bathing Location: L Arm, R Arm, L Upper Leg, R Upper Leg, L Lower Leg ( including foot), R Lower Leg (including foot), Chest, Abdomen, Buttocks, Perineal Area Shower/Bathe Self (QC): 4 Upper Extremity Dressin Upper Body Dressing (QC): 4 Lower Extremity Dressin (Pt. is able to don all LE clothing pieces except for right shoe. Does need some assist with that.) Lower Body Dressing (QC): 4 On/Off Footwear (QC): 4 Toiletin (SBA for toileting.) Toileting Hygiene (QC): 4 Toilet/Commode Transfer: 5 Toilet Transfer (QC): 4 Shower: 4 Assessment/Plan Assessment and Plan Assess & Plan/Chief Complaint Assessment: (1) Ischemic stroke 01/23/19 (2) S/P carotid endarterectomy 01/25/19 with no improvement in right sided weakness while at [facility] (3) PVD (peripheral vascular disease) (4) CAD (coronary artery disease) (5) Expressive aphasia- improved 02/02/19 (6) Right sided weakness (7) Anemia-iron def so starting iron 02/03/19 (8) Hypertension (9) S/P cataract extraction (10) Dysphagia (11) Hyperlipidemia (12) Constipation-resolved after meds (13) Klinefelter syndrome (14) Received intravenous tissue plasminogen activator (tPA) in emergency department 01/23/19 at [facility] ER (15) Depression (16) Former smoker (17) Hyponatremia improved on salt tablets and in process of weaning off (18) DVT prophylaxis (19) Urinary retention-consulted Urology, appreciate recs (20) Lee catheter was in place now DC but back with urinary retention s/p cysto so placed on Urecholine with Flomax and DC Lee and that is working well and voiding normally (21) Occult blood in stool Plan: Patient doing extremely well and will rest from therapy today and start another week of intensive therapy prior to DC home Participating in all therapies as required Attempting to get back to prior level of functioning Speech working with expressive aphasia DC salt tablets now Blood pressure well controlled on Norvasc 5 MG Checked labs for regular monitoring and checked sodium level since weaning salt tablets and all results normal Hemoccult stools + and Dr Schultz has been notified (1) Ischemic stroke (2) Anemia Assessment & Plan: Start iron therapy (3) Expressive aphasia (4) CAD (coronary artery disease) (5) Dysphagia (6) Hyperlipidemia (7) PVD (peripheral vascular disease) (8) Hypertension (9) Right sided weakness (10) Klinefelter syndrome (11) Constipation (12) Depression (13) Hyponatremia (14) DVT prophylaxis (15) Received intravenous tissue plasminogen activator (tPA) in emergency department (16) Urinary retention Assessment & Plan: Resolved (17) Lee catheter in place Assessment & Plan: Resolved (18) S/P carotid endarterectomy (19) S/P cataract extraction (20) Former smoker (21) Occult blood positive stool BOOGIE WHITTEN DO Feb 23, 2019 08:55
[2019-02-23] MEDS: ASPIRIN 81 MG CHEW (CHILDREN'S ASA) PO SCH (08:57)
[2019-02-23] MEDS: SERTRALINE 100 MG (ZOLOFT) TAB PO SCH (08:57)
[2019-02-23] MEDS: amLODIPine 5 MG (NORVASC) TAB PO SCH (08:57)
[2019-02-23] MEDS: BISOPROLOL 5 MG TAB (ZEBETA) PO SCH (08:57)
[2019-02-23] MEDS: CLOPIDOGREL 75 MG (PLAVIX) TABLET PO SCH (08:57)
[2019-02-23] MEDS: POLYETHYLENE GLYCOL 17 GM (MIRALAX) PACK PO SCH ×2 (08:58→19:26)
[2019-02-23] MEDS: LIDOCAINE 4% (SALONPAS) PATCH TOP SCH (08:58)
[2019-02-23] MEDS: DICLOFENAC 1% GEL 100 GM (VOLTAREN) TUBE TOP SCH ×2 (08:59→19:26)
[2019-02-23] MEDS: EYE PO SCH ×2 (08:59→20:11)
[2019-02-23] MEDS: SIMBRINZA PO SCH ×2 (08:59→20:11)
[2019-02-23] MEDS: prednisoLONE 1% OPTH (PRED FORTE) 5 ML BTL OS SCH ×4 (08:59→20:11)
--- NOTE | 2019-02-23 09:00 | NUR ---
DRS. WHITTEN AND MUNIR NOTIFIED OF POSITIVE OB STOOL. DR. AMARAL STATES HE WILL TALK TO PATIENT ABOUT IT.
[2019-02-23] MEDS: SENNA W/DOCUSATE (SENOKOT S) TABLET PO SCH ×2 (09:03→20:10)
--- NOTE | 2019-02-23 12:03 | Physical Therapy Daily Note ---
PT Daily Note-Current Subjective Pt sitting up in recliner upon arrival. Pt agrees to PT. Pt is more verbal today. Pain Location: No Pain Reported Mental Status Patient Orientation: Person, Place, Situation Transfers Therapy Code Descriptions/Definitions Functional [place] Measure: 0=Not Assessed/NA 4=Minimal Assistance 1=Total Assistance 5=Supervision or Setup 2=Maximal Assistance 6=Modified [place] 3=Moderate Assistance 7=Complete [place] Therapy Quality Codes: 6 Independent with activity with or without an assistive device 5 Patient requires set up or clean up by helper. Patient completes activity by themselves 4 Supervision or touching assist (CGA). [place] provide cues , steadying assist 3 The helper provides less than half the effort to complete the activity 2 The helper provides more than half the effort to complete the activity 1 Dependent. The helper does all the effort to complete an activity 7 Patient refused to complete or attempt activity 9 The patient did not perform the activity before the current illness or injury 88 Not attempted due to Medical conditions or safety concerns Scootin Sit to/from Stand: 5 Sit to Stand (QC): 5 Pt occasionally has LOB upon standing from Seated surface, pt able to correct. Weight Bearing Right Lower Extremity: Right Full Weight Bearing Left Lower Extremity: Left Full Weight Bearing Gait Training Does the Patient Walk?: Yes Distance (FIM): 3=150 ft Distance: 175' Walk 10 feet (QC): 5 Walk 50 ft with 2 Turns(QC): 5 Walk 150 ft (QC): 5 Gait Level of Assist: 5 Gait Persons Needed: 1 Gait Assistive Device: Cane Large Base Quad Pt needs occasional VC for picking up R foot while ambulating. Wheelchair Training Does the Pt Use a Wheelchair?: No Stair Training Stair Training: Handrails/: 2 handrails #of Steps: 8 1 Step (curb) (QC): 5 4 Steps (QC): 5 12 Steps (QC): 5 Stairs: Pattern: Step to Level of Assist: 5 CLINICAL RESOURCE MANAGER is at close SBA when descending steps for safety. Pt is improving with control and strength. Exercises NuStep Minutes: 12 NuStep Workload: 5 Treatments Pt transfers to standing and ambulates in hallway. Pt uses NuStep for 12m at [facility] as well as completes 3 sets of 4 steps. Pt ambulates in hallway before returning to room to rest in recliner. Pt has all needs met. Assessment Current Status: Good Progress Pt is gaining strength and better control during stairs and ambulation. PT Short Term Goals Short Term Goals Time Frame: Feb 04, 2019 Transfers (B,C,W/C) (FIM): 4 (met) Gait (FIM): 1 (met) Gait Distance Comment: 20' Gait Level of Assist: 3 Gait Assistive Device: Walker Henry Wheelchair Distance: 80' PT Penitentiary Goals Penitentiary Goals PT Penitentiary Goals Time Frame: Feb 18, 2019 Transfers (B,C,W/C) (FIM): 4 Sit to Lying (QC): 4 Lying-Sitting on Side/Bed(QC): 4 Sit to Stand (QC): 4 Rollin Roll Left to Right (QC): 4 Chair/Yyu-pf-Zumgp Xfer(QC): 4 Car Transfer (QC): 4 Gait (FIM): 2 Distance: 50' Walk 10 feet (QC): 3 Walk 10ft-Uneven Surface(QC): 3 Walk 50ft with 2 Turns (QC): 3 Gait Level of Assist: 4 Gait Assistive Device: Cane Large Base Quad Wheelchair (FIM): 6 Distance: 150' Wheelchair Level of Assist: 6 Wheel 50 feet with 2 turns (QC: 6 Stairs (FIM): 1 # of Steps: 1 1 Step (curb) (QC): 3 Stairs Level Of Assist: 4 PT Plan Problem List Problem List: Activity Tolerance, Safety, Balance, Gait Treatment/Plan Treatment Plan: Continue Plan of Care Treatment Plan: Bed Mobility, Concurrent Therapy, Education, Functional Activity Gifty, Functional Strength, Group Therapy, Gait, Safety, Therapeutic Exercise, Transfers Treatment Duration: Feb 18, 2019 Frequency: At least 5 of 7 days/Wk (IRF) Estimated Hrs Per Day: 1.5 hours per day Patient and/or Family Agrees t: Yes Safety Risks/Education Patient Education: Gait Training, Transfer Techniques, Steps, Correct Positioning, Safety Issues Teaching Recipient: Patient Teaching Methods: Discussion Response to Teaching: Verbalize Understanding, Return Demonstration Time/GCodes Time In: 915 Time Out: 1000 Total Billed Treatment Time: 45 Total Billed Treatment 1, GT (15m), EX (15m) & FA (15m) G Codes Necessary: JASMIN Calero PTA Feb 23, 2019 12:03
--- NOTE | 2019-02-23 12:47 | Speech Therapy Daily Note ---
Speech Daily Progress Note Subjective Date Seen by Provider: Feb 23, 2019 Time Seen by Provider: 00:30 The patient was resting in his recliner this morning when I entered his room. He was in a good mood due to this being his birthday. Objective The patient completed a series of following written directions with 90% accuracy given minimal cues. Assessment Assessment Current Status: Good Progress Treatment Plan Continue Plan of Care Communication Comprehension: 6 Expression: 1 Social Cognition Social Interaction: 5 Problem Solvin Memory: 5 Speech Short Term Goals Short Term Goals Short Term Goals 1) The patient will demonstrate orientation to person, place time and situation with 75% accuracy provided with stimulation and choices. 2) The patient will demonstrate correct naming of ten functional simple items during therapy session. 3) The patient will vollow one-step verbal commands with mod verbal/visual cues with 80% accuracy. 4) The patient will tolerate least restrictive diet level without signs/ symptoms of aspiration. 5) The patient will utilize compensatory strategies as trained for safe oral intake at 90% given minimal cues. Speech Chemist Goals Penitentiary Goals 1) Patient will communicate basic wants and needs with 2-3 word phrases during therapy sessions. 2) Patient will maintain adequate nutrition/hydration via safe effective swallow function. Speech-Plan Patient/Family Goals Patient/Family Goals: The patient plans on returning home with his and other family support post rehab. Treatment Plan Speech Therapy Treatment Plan: Continue Plan of Care The patient is making good progress with expressive language as a result of skilled ST services. Treatment Duration: February 26, 2019 Frequency: 5 times per week Estimated Hrs Per Day: .5 hour per day Rehab Potential: Good Barriers to Learning: New onset CVA, moderate expressive aphasia with improvement noted Pt/Family Agrees to Plan: Yes Safety Risks/Education Teaching Recipient: Patient Teaching Methods: Discussion Response to Teaching: Verbalize Understanding Education Topics Provided: Communication strategies as an inpatient and upon his return home Time Speech Therapy Time In: 08:30 Speech Therapy Time Out: 09:00 Total Billed Time: 30 Billed Treatment Time [address] Feb 23, 2019 12:47
--- NOTE | 2019-02-23 13:13 | Speech Therapy Progress Note ---
Therapy Progress Note The patient will not receive skilled ST tomorrow due to clinician attending a CEU conference. EMILY SUAREZ Feb 23, 2019 13:13
--- NOTE | 2019-02-23 13:13 | Occupational Ther Daily Note ---
OT Current Status-Daily Note Subjective No pain reported. Appearance Pt. up in chair. Declines showering but agrees to come to therapy gym and participate in session. Mental Status/Objective Patient Orientation: Person, Place, Time, Situation Therapy Code Descriptions/Definitions Functional [place] Measure: 0=Not Assessed/NA 4=Minimal Assistance 1=Total Assistance 5=Supervision or Setup 2=Maximal Assistance 6=Modified [place] 3=Moderate Assistance 7=Complete [place] ADL-Treatment Therapy Code Descriptions/Definitions Functional [place] Measure: 0=Not Assessed/NA 4=Minimal Assistance 1=Total Assistance 5=Supervision or Setup 2=Maximal Assistance 6=Modified [place] 3=Moderate Assistance 7=Complete [place] Therapy Quality Codes: 6 Independent with activity with or without an assistive device 5 Patient requires set up or clean up by helper. Patient completes activity by themselves 4 Supervision or touching assist (CGA). [place] provide cues , steadying assist 3 The helper provides less than half the effort to complete the activity 2 The helper provides more than half the effort to complete the activity 1 Dependent. The helper does all the effort to complete an activity 7 Patient refused to complete or attempt activity 9 The patient did not perform the activity before the current illness or injury 88 Not attempted due to Medical conditions or safety concerns Transfers (B, C, W/C) (FIM): 5 (SBA to ambulate with quad cane to and from therapy gym.) Pt. ambulated to therapy gym with quad cane and SBA. Completed armbike x 15 minutes at mod resistance to increase overall strength. Pt. began armbike without having right hand acewrapped to bike, but unable to sustain grasp. Therefore, OT applied romeo wrap to armbike and hand. Tolerated this well. Completed other series of fine motor tasks using tip pinch and tripod pinch. Engaged pt. in isolating specific fine motor movements to increase overall functional grasp. Pt. able to elicit tip pinch and tripod pinch, but these grasps were still weak. OT and pt. worked on series of communication tasks in which pt. was shown a specific piece of food, and then was asked to state what the name of the food was, and then write it down. Pt. did this with left hand. Pt. able to state most names for food, and able to somewhat legibly write approximately 75%. After this, pt. was then shown the food again and was asked to point to the name that he had written down. This was more difficult for him. Have noted that words are increasing more fluidly without hesitation. However, continuous speech is difficult. Pt. ambulated back to room. All needs met. Education OT Patient Education: Correct positioning, Exercise program, Home exercise program, Progress toward Goal/Update tx plan, Purpose of tx/functional activities, Reviewed precautions, Rehab process, Transfer techniques Teaching Recipient: Patient Teaching Methods: Demonstration, Discussion Response to Teaching: Verbalize Understanding, Return Demonstration OT Short Term Goals Short Term Goals Time Frame: Feb 11, 2019 Eating(FIM): 4 Grooming(FIM): 44 Bathing(FIM): 3 Upper Body Dressing(FIM): 3 Lower Body Dressing(FIM): 3 Toileting(FIM): 4 Transfers (B,C,W/C) (FIM): 4 (met) Toilet/Commode Transfer(FIM): 4 Shower Transfer(FIM): 4 Additional Short Term Goals: 1-Demonstrate ADL Tasks, 2-Verbalize Understanding , 3-ImproveStrength/Gifty 1=Demonstrate adherence to instructed precautions during ADL tasks. 2=Patient will verbalize/demonstrate understanding of assistive devices/ modifications for ADL. 3=Patient will improve strength/tolerance for activity to enable patient to perform ADL's. OT Alf Goals Spiral Runner Goals Time Frame: February 25, 2019 Eating (FIM): 6 Eating (QC): 6 Groomin Oral Hygiene (QC): 6 Bathing(FIM): 5 Shower/Bathe Self (QC): 5 Upper Body Dressing(FIM): 5 Upper Body Dressing (QC): 5 Lower Body Dressing(FIM): 5 Lower Body Dressing (QC): 5 On/Off Footwear (QC): 5 Toileting(FIM): 6 Toileting Hygiene (QC): 6 Transfers (B,C,W/C) (FIM): 6 Toilet/Commode Transfer(FIM): 6 Toilet/Commode Transfer (QC): 6 Shower Transfer(FIM): 5 Additional Goals: 1-Demonstrate ADL Tasks, 2-Verbalize Understanding, 3- ImproveStrength/Gifty 1=Demonstrate adherence to instructed precautions during ADL tasks. 2=Patient will verbalize/demonstrate understanding of assistive devices/ modifications for ADL. 3=Patient will improve strength/tolerance for activity to enable patient to perform ADL's. OT Education/Plan Problem List/Assessment Assessment: Decreased Activ Tolerance, Decreased UE Strength, Dependent Transfers, Impaired Funct Balance, Impaired I ADL's, Impaired Self-Care Skills pt continue to make progress toward all OT goals. pt would benefit from additional OT services to maximize rehab potential and to increase overall independence with ADLS/ functional transfers. Discharge Recommendations Plan/Recommendations: Continue POC Therapy D/C Recommendations: Home w/ Family Support, Occupational Therapy Home Care Treatment Plan/Plan of Care Treatment,Training & Education: Yes Patient would benefit from OT for education, treatment and training to promote independence in ADL's, mobility, safety and/or upper extremity function for ADL' s. Plan of Care: ADL Retraining, Functional Mobility, Group Exercise/Act as Ind, UE Funct Exercise/Act Treatment Duration: February 25, 2019 Frequency: At least 5 of 7 days/Wk (IRF) Estimated Hrs Per Day: 1.5 hours per day Agreement: Yes Rehab Potential: Good Time/GCodes Start Time: 10:30 Stop Time: 11:45 Total Time Billed (hr/min): 75 Billed Treatment Time 1, Ex x 30minutes, FA x 45minutes PAULETTE HALL OT Feb 23, 2019 13:13
--- NOTE | 2019-02-23 14:03 | Physical Therapy Daily Note ---
PT Daily Note-Current Subjective Pt sitting in recliner upon arrival. Pt agrees to PT. Pain Location: No Pain Reported Mental Status Patient Orientation: Person, Place, Situation Transfers Therapy Code Descriptions/Definitions Functional [place] Measure: 0=Not Assessed/NA 4=Minimal Assistance 1=Total Assistance 5=Supervision or Setup 2=Maximal Assistance 6=Modified [place] 3=Moderate Assistance 7=Complete [place] Therapy Quality Codes: 6 Independent with activity with or without an assistive device 5 Patient requires set up or clean up by helper. Patient completes activity by themselves 4 Supervision or touching assist (CGA). [place] provide cues , steadying assist 3 The helper provides less than half the effort to complete the activity 2 The helper provides more than half the effort to complete the activity 1 Dependent. The helper does all the effort to complete an activity 7 Patient refused to complete or attempt activity 9 The patient did not perform the activity before the current illness or injury 88 Not attempted due to Medical conditions or safety concerns Scootin Sit to/from Stand: 5 Sit to Stand (QC): 5 Weight Bearing Right Lower Extremity: Right Full Weight Bearing Left Lower Extremity: Left Full Weight Bearing Gait Training Does the Patient Walk?: Yes Distance (FIM): 3=150 ft Distance: 400' Walk 10 feet (QC): 5 Walk 50 ft with 2 Turns(QC): 5 Walk 150 ft (QC): 5 Gait Level of Assist: 5 Gait Persons Needed: 1 Gait Assistive Device: Cane Large Base Quad Pt occasionally stumbles but no LOB. Pt able to correct self and slow down to prevent LOB. Wheelchair Training Does the Pt Use a Wheelchair?: No Exercises Supine Ex: Rolling Seated Therapy Exercises: Sit to stand Treatments Pt practices sit to stands from chair in Therapy Gym as well as bed mobility on mat. Pt ambulates in hallway with a couple of standing RBs before returning to room to rest in recliner. Pt has all needs met. Assessment Current Status: Good Progress Pt a little more fatigued this afternoon and needs VC for safety during fatigue. PT Short Term Goals Short Term Goals Time Frame: Feb 04, 2019 Transfers (B,C,W/C) (FIM): 4 (met) Gait (FIM): 1 (met) Gait Distance Comment: 20' Gait Level of Assist: 3 Gait Assistive Device: Walker [place] Wheelchair Distance: 80' PT Psychology Department Chair Goals Retirement Goals PT Retirement Goals Time Frame: Feb 18, 2019 Transfers (B,C,W/C) (FIM): 4 Sit to Lying (QC): 4 Lying-Sitting on Side/Bed(QC): 4 Sit to Stand (QC): 4 Rollin Roll Left to Right (QC): 4 Chair/Drr-jn-Ujkni Xfer(QC): 4 Car Transfer (QC): 4 Gait (FIM): 2 Distance: 50' Walk 10 feet (QC): 3 Walk 10ft-Uneven Surface(QC): 3 Walk 50ft with 2 Turns (QC): 3 Gait Level of Assist: 4 Gait Assistive Device: Cane Large Base Quad Wheelchair (FIM): 6 Distance: 150' Wheelchair Level of Assist: 6 Wheel 50 feet with 2 turns (QC: 6 Stairs (FIM): 1 # of Steps: 1 1 Step (curb) (QC): 3 Stairs Level Of Assist: 4 PT Plan Problem List Problem List: Activity Tolerance, Safety, Gait Treatment/Plan Treatment Plan: Continue Plan of Care Treatment Plan: Bed Mobility, Concurrent Therapy, Education, Functional Activity Gifty, Functional Strength, Group Therapy, Gait, Safety, Therapeutic Exercise, Transfers Treatment Duration: Feb 18, 2019 Frequency: At least 5 of 7 days/Wk (IRF) Estimated Hrs Per Day: 1.5 hours per day Patient and/or Family Agrees t: Yes Safety Risks/Education Patient Education: Gait Training, Correct Positioning, Safety Issues Teaching Recipient: Patient Teaching Methods: Discussion Response to Teaching: Verbalize Understanding, Reinforcement Needed Time/GCodes Time In: 1330 Time Out: 1400 Total Billed Treatment Time: 30 Total Billed Treatment 1, GT (15m) & FA (15m) G Codes Necessary: JASMIN Calero PTA Feb 23, 2019 14:03
--- NOTE | 2019-02-23 14:12 | NUR ---
provided prayer and Communion.
[2019-02-23 15:38] VITALS: BP 129/64
[2019-02-23] MEDS: TAMSULOSIN 0.4 MG (FLOMAX) CAP PO SCH (18:37)
[2019-02-23] MEDS: LIDOCAINE PATCH REMOVAL TP SCH (19:26)
[2019-02-23] MEDS: ATORVASTATIN 80 MG (LIPITOR) TABLET PO SCH (20:10)
--- NOTE | 2019-02-24 05:25 | NUR ---
FACSIMILE MACHINE OPERATOR contacted patients room to speak with patient and for review of team conference recommendations. As patient has progressed significantly, team has recommended patient transition to independent living room, complete a day pass this and if possible patient's spouse stay one overnight to provide assistance with patient as needed. Mela is in agreement with all recommendations and states she is off work this Friday and Friday and available to complete day pass and overnight stay. FACSIMILE MACHINE OPERATOR discussed recommendations of outpatient therapy versus home health services, they would like to proceed with outpatient therapy; however, if wait time is lengthy, they wish to pursue home health and transition to outpatient when spots are available. as patient is a [employer] employee with [employer] insurance, [employer] outpatient is listed as an in network provider. FACSIMILE MACHINE OPERATOR will reach out to inquire about wait time for assessment and treatment.
[2019-02-24 05:53] VITALS: BP 110/54
[2019-02-24] MEDS: BETHANECHOL 25 MG (URECHOLINE) TAB PO SCH ×4 (06:05→20:32)
[2019-02-24] MEDS: FERROUS SULF 325 MG (IRON) TAB PO SCH (06:05)
--- NOTE | 2019-02-24 08:30 | PM&R Progress Note ---
Subjective HPI/CC On Admission Date Seen by Provider: February 24, 2019 Time Seen by Provider: 08:30 CC: Ischemic stroke HPI: This is a 63-year-old white male of Dr. Schultz who presented to via [facility] ER on 01/23/19 with abrupt onset of severe weakness on the right side underwent stroke workup and found to be a candidate for TPA then shipped to [facility] and subsequently underwent left carotid endarterectomy on 01/25/19 but still remains with right sided weakness with severe expressive aphasia. Reviewed the entire record at [facility] and reviewed his home medications and patient appears to be ready to start aggressive physical therapy in order regain function. His drove him from and reports that he did well on the trip. His [id number] is a nurse and she helped reviewed the discharge med list. He is currently on. Diet with nectar thickened liquids. CT scan via [facility] and [facility] showed a left ischemic process of the MCA distribution. During hospital course the he had no significant clinical decompensation. Patient requires inpatient rehabilitation with 24 hour physician supervision to monitor her labile blood pressure and monitor for any hemorrhagic residual from ischemic stroke that cannot be provided in any type of lower level of care. 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 Subjective/Events-last exam OT reports loss of balance at times so needs additional work with therapy PT reports patient is walking a lot more and doing well 16 steps walked today upstairs [place] proposed for 03/02/[address] Schultz will arrange for endoscopy at [facility] outpatient due to anemia and Heme + stools Note 02/23/[birth year] Today [birth year] birthday Hemoccult that was sent down under Dr. Schultz's direction was positive for blood. Dr. Schultz will be notified of the hemoccult positive stools. Balance is much better. Still has significant weakness in his hand. Reviewed therapy notes. Conferred with RN. No other concerns from the Pt. Review of Systems General: Fatigue Neurological: Weakness, Numbness, Incoordination Objective Exam Vital Signs Vital Signs Date Time Temp Pulse Resp B/P (MAP) Pulse Ox O2 Delivery O2 Flow Rate FiO2 02/24/19 09:00 Room Air 02/24/19 05:53 97.6 65 18 110/54 (86) 97 Capillary Refill : General Appearance: No Apparent Distress, WD/WN, Chronically ill HEENT: PERRL/EOMI, Pharynx Normal, Other (right facial droop) Neck: Full Range of Motion, Normal Inspection, Non Tender, Supple, Other ( incision left neck intact) Respiratory: Chest Non Tender, Lungs Clear, Normal Breath Sounds, No Accessory Muscle Use, No Respiratory Distress Cardiovascular: Regular Rate, Rhythm, No Edema, No Gallop, No JVD, No Murmur, Normal Peripheral Pulses Gastrointestinal: Normal Bowel Sounds, No Organomegaly, No Pulsatile Mass, Non Tender, Soft Back: Normal Inspection, No CVA Tenderness, No Vertebral Tenderness Extremity: Normal Capillary Refill, Normal Inspection, Non Tender, No Calf Tenderness, No Pedal Edema, Other (limited ROM right side and mild deficit left) Neurologic/Psychiatric: Alert, Normal Mood/Affect, Abnormal final armature tester II-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 FIM Transfers Therapy Code Descriptions/Definitions Functional [place] Measure: 0=Not Assessed/NA 4=Minimal Assistance 1=Total Assistance 5=Supervision or Setup 2=Maximal Assistance 6=Modified [place] 3=Moderate Assistance 7=Complete [place] Therapy Quality Codes: 6 Independent with activity with or without an assistive device 5 Patient requires set up or clean up by helper. Patient completes activity by themselves 4 Supervision or touching assist (CGA). [place] provide cues , steadying assist 3 The helper provides less than half the effort to complete the activity 2 The helper provides more than half the effort to complete the activity 1 Dependent. The helper does all the effort to complete an activity 7 Patient refused to complete or attempt activity 9 The patient did not perform the activity before the current illness or injury 88 Not attempted due to Medical conditions or safety concerns Mental Status/Objective Comprehension: 6 Expression: 1 Social Interaction: 5 Problem Solvin Memory: 5 ADL-Treatment Feedin Eating (QC): 5 Groomin (Set up) Oral Hygiene (QC): 5 Bathin (SBA in shower to wash all parts.) Bathing Location: L Arm, R Arm, L Upper Leg, R Upper Leg, L Lower Leg ( including foot), R Lower Leg (including foot), Chest, Abdomen, Buttocks, Perineal Area Shower/Bathe Self (QC): 4 Upper Extremity Dressin Upper Body Dressing (QC): 4 Lower Extremity Dressin (Pt. is able to don all LE clothing pieces except for right shoe. Does need some assist with that.) Lower Body Dressing (QC): 4 On/Off Footwear (QC): 4 Toiletin (SBA for toileting.) Toileting Hygiene (QC): 4 Toilet/Commode Transfer: 5 Toilet Transfer (QC): 4 Shower: 4 Assessment/Plan Assessment and Plan Assess & Plan/Chief Complaint Assessment: (1) Ischemic stroke 01/23/19 (2) S/P carotid endarterectomy 01/25/19 with no improvement in right sided weakness while at [facility] (3) PVD (peripheral vascular disease) (4) CAD (coronary artery disease) (5) Expressive aphasia- improved 02/02/19 (6) Right sided weakness (7) Anemia-iron def so starting iron 02/03/19 (8) Hypertension (9) S/P cataract extraction (10) Dysphagia (11) Hyperlipidemia (12) Constipation-resolved after meds (13) Klinefelter syndrome (14) Received intravenous tissue plasminogen activator (tPA) in emergency department 01/23/19 at [facility] ER (15) Depression (16) Former smoker (17) Hyponatremia improved on salt tablets and in process of weaning off (18) DVT prophylaxis (19) Urinary retention-consulted Urology, appreciate recs (20) Lee catheter was in place now DC but back with urinary retention s/p cysto so placed on Urecholine with Flomax and DC Lee and that is working well and voiding normally (21) Occult blood in stool Plan: Patient doing extremely well and will rest from therapy today and start another week of intensive therapy prior to DC home Participating in all therapies as required Attempting to get back to prior level of functioning Speech working with expressive aphasia DC salt tablets now Blood pressure well controlled on Norvasc 5 MG Checked labs for regular monitoring and checked sodium level since weaning salt tablets and all results normal Hemoccult stools + and Dr Schultz has been notified and he informed me that he will perform endoscopy as an outpatient (1) Ischemic stroke (2) Anemia Assessment & Plan: Start iron therapy (3) Expressive aphasia (4) CAD (coronary artery disease) (5) Dysphagia (6) Hyperlipidemia (7) PVD (peripheral vascular disease) (8) Hypertension (9) Right sided weakness (10) Klinefelter syndrome (11) Constipation (12) Depression (13) Hyponatremia (14) DVT prophylaxis (15) Received intravenous tissue plasminogen activator (tPA) in emergency department (16) Urinary retention Assessment & Plan: Resolved (17) Lee catheter in place Assessment & Plan: Resolved (18) S/P carotid endarterectomy (19) S/P cataract extraction (20) Former smoker (21) Occult blood positive stool BOOGIE WHITTEN DO February 24, 2019 08:30
[2019-02-24] MEDS: ASPIRIN 81 MG CHEW (CHILDREN'S ASA) PO SCH (08:53)
[2019-02-24] MEDS: SERTRALINE 100 MG (ZOLOFT) TAB PO SCH (08:53)
[2019-02-24] MEDS: BISOPROLOL 5 MG TAB (ZEBETA) PO SCH (08:54)
[2019-02-24] MEDS: amLODIPine 5 MG (NORVASC) TAB PO SCH (08:54)
[2019-02-24] MEDS: CLOPIDOGREL 75 MG (PLAVIX) TABLET PO SCH (08:54)
[2019-02-24] MEDS: SENNA W/DOCUSATE (SENOKOT S) TABLET PO SCH ×2 (08:54→20:32)
[2019-02-24] MEDS: POLYETHYLENE GLYCOL 17 GM (MIRALAX) PACK PO SCH ×2 (08:55→19:48)
[2019-02-24] MEDS: EYE PO SCH ×2 (08:56→20:32)
[2019-02-24] MEDS: prednisoLONE 1% OPTH (PRED FORTE) 5 ML BTL OS SCH ×4 (08:56→20:32)
[2019-02-24] MEDS: SIMBRINZA PO SCH ×2 (08:56→20:32)
[2019-02-24] MEDS: DICLOFENAC 1% GEL 100 GM (VOLTAREN) TUBE TOP SCH ×2 (08:58→19:48)
[2019-02-24] MEDS: LIDOCAINE 4% (SALONPAS) PATCH TOP SCH (08:58)
--- NOTE | 2019-02-24 09:04 | Physical Therapy Daily Note ---
PT Daily Note-Current Subjective Pt laying Supine in bed upon arrival. Pt agrees to PT. Pain Location: No Pain Reported Mental Status Patient Orientation: Person, Place, Situation Transfers Therapy Code Descriptions/Definitions Functional [place] Measure: 0=Not Assessed/NA 4=Minimal Assistance 1=Total Assistance 5=Supervision or Setup 2=Maximal Assistance 6=Modified [place] 3=Moderate Assistance 7=Complete [place] Therapy Quality Codes: 6 Independent with activity with or without an assistive device 5 Patient requires set up or clean up by helper. Patient completes activity by themselves 4 Supervision or touching assist (CGA). [place] provide cues , steadying assist 3 The helper provides less than half the effort to complete the activity 2 The helper provides more than half the effort to complete the activity 1 Dependent. The helper does all the effort to complete an activity 7 Patient refused to complete or attempt activity 9 The patient did not perform the activity before the current illness or injury 88 Not attempted due to Medical conditions or safety concerns Scootin Supine to/from Sit: 6 Sit to/from Stand: 5 Sit to Stand (QC): 5 Weight Bearing Right Lower Extremity: Right Full Weight Bearing Left Lower Extremity: Left Full Weight Bearing Gait Training Does the Patient Walk?: Yes Distance (FIM): 3=150 ft Distance: 150' Walk 10 feet (QC): 5 Walk 50 ft with 2 Turns(QC): 5 Walk 150 ft (QC): 5 Gait Level of Assist: 5 Gait Persons Needed: 1 Gait Assistive Device: Cane Large Base Quad Pt needs occasional VC to remind picking up R foot when advancing during ambulation. Wheelchair Training Does the Pt Use a Wheelchair?: No Stair Training Stair Training: Handrails/: 2 handrails Stairs (FIM): 5 #of Steps: 16 1 Step (curb) (QC): 6 4 Steps (QC): 5 12 Steps (QC): 5 Stairs: Pattern: Step to Level of Assist: 5 Exercises Seated Therapy Exercises: Ankle pumps, Long arc quads, Hip flexion, Kicking activity Seated Reps: 10 NuStep Minutes: 15 NuStep Workload: 5 Treatments Pt transfers from bed to standing and ambulates in hallway. Pt ambulates 4 sets of 4 steps as pt would have at home. Pt completes Seated Ex followed by using NuStep for 15m at WL 5. Pt returns to room to rest at end of tx in recliner with all needs met. Assessment Current Status: Good Progress Pt continues to improve with strength and better control of mobility. Pt ambulated more stairs today than previous tx. PT Short Term Goals Short Term Goals Time Frame: Feb 04, 2019 Transfers (B,C,W/C) (FIM): 4 (met) Gait (FIM): 1 (met) Gait Distance Comment: 20' Gait Level of Assist: 3 Gait Assistive Device: Walker Henry Wheelchair Distance: 80' PT Bilingual Loan Processor Goals Bilingual Loan Processor Goals PT Bilingual Loan Processor Goals Time Frame: Feb 18, 2019 Transfers (B,C,W/C) (FIM): 4 Sit to Lying (QC): 4 Lying-Sitting on Side/Bed(QC): 4 Sit to Stand (QC): 4 Rollin Roll Left to Right (QC): 4 Chair/[id number]-Dltcw Xfer(QC): 4 Car Transfer (QC): 4 Gait (FIM): 2 Distance: 50' Walk 10 feet (QC): 3 Walk 10ft-Uneven Surface(QC): 3 Walk 50ft with 2 Turns (QC): 3 Gait Level of Assist: 4 Gait Assistive Device: Cane Large Base Quad Wheelchair (FIM): 6 Distance: 150' Wheelchair Level of Assist: 6 Wheel 50 feet with 2 turns (QC: 6 Stairs (FIM): 1 # of Steps: 1 1 Step (curb) (QC): 3 Stairs Level Of Assist: 4 PT Plan Problem List Problem List: Activity Tolerance, Functional Strength, Gait Treatment/Plan Treatment Plan: Continue Plan of Care Treatment Plan: Bed Mobility, Concurrent Therapy, Education, Functional Activity Gifty, Functional Strength, Group Therapy, Gait, Safety, Therapeutic Exercise, Transfers Treatment Duration: Feb 18, 2019 Frequency: At least 5 of 7 days/Wk (IRF) Estimated Hrs Per Day: 1.5 hours per day Patient and/or Family Agrees t: Yes Safety Risks/Education Patient Education: Gait Training, Transfer Techniques, Correct Positioning, Safety Issues Teaching Recipient: Patient Teaching Methods: Discussion Response to Teaching: Verbalize Understanding Time/GCodes Time In: 800 Time Out: 900 Total Billed Treatment Time: 60 Total Billed Treatment 1, GT (15m), EX x2 (30m) & FA (15m) G Codes Necessary: JASMIN Calero PROGRAM PLANNER February 24, 2019 09:04
--- NOTE | 2019-02-24 10:30 | NUR ---
Pastoral care visit.
--- NOTE | 2019-02-24 12:06 | Occupational Ther Daily Note ---
OT Current Status-Daily Note Subjective No pain reported. Appearance Pt. up in chair. Declines showering but agrees to work with OT. Mental Status/Objective Patient Orientation: Person, Place Therapy Code Descriptions/Definitions Functional [place] Measure: 0=Not Assessed/NA 4=Minimal Assistance 1=Total Assistance 5=Supervision or Setup 2=Maximal Assistance 6=Modified [place] 3=Moderate Assistance 7=Complete [place] ADL-Treatment Therapy Code Descriptions/Definitions Functional [place] Measure: 0=Not Assessed/NA 4=Minimal Assistance 1=Total Assistance 5=Supervision or Setup 2=Maximal Assistance 6=Modified [place] 3=Moderate Assistance 7=Complete [place] Therapy Quality Codes: 6 Independent with activity with or without an assistive device 5 Patient requires set up or clean up by helper. Patient completes activity by themselves 4 Supervision or touching assist (CGA). [place] provide cues , steadying assist 3 The helper provides less than half the effort to complete the activity 2 The helper provides more than half the effort to complete the activity 1 Dependent. The helper does all the effort to complete an activity 7 Patient refused to complete or attempt activity 9 The patient did not perform the activity before the current illness or injury 88 Not attempted due to Medical conditions or safety concerns Transfers (B, C, W/C) (FIM): 5 (SBA with quad cane to ambulate into therapy gym.) Other Treatment Pt. ambulated to therapy gym with quad cane and SBA. Pt. participated in series of fine motor strength and coordination tasks. Worked on shuffling/ sorting cards with right hand. Also worked on reaching and releasing gil bags for grasp/release pattern with right hand. Pt. is improving with this and movements are becoming more fluid. Pt. tolerated bilateral UE exercises with 2 lb dumbbell in right hand and 3 lb. dumbbell in left for 5 exercises x 15 reps each. Completed armbike at mod resistance to increase overall strength and endurance. Pt. ambulated back to room with SBA and quad cane. Practiced doffing/donning right shoe with use of dycem mat on left leg to keep leg in place while donning shoe. This seemed to work for pt. and he was successfully able to don shoe, which he hasn't been able to do. Education OT Patient Education: Correct positioning, Exercise program, Modified ADL techniques, Progress toward Goal/Update tx plan, Purpose of tx/functional activities, Reviewed precautions, Rehab process, Transfer techniques Teaching Recipient: Patient Teaching Methods: Demonstration, Discussion Response to Teaching: Verbalize Understanding, Return Demonstration OT Short Term Goals Short Term Goals Time Frame: Feb 11, 2019 Eating(FIM): 4 Grooming(FIM): 44 Bathing(FIM): 3 Upper Body Dressing(FIM): 3 Lower Body Dressing(FIM): 3 Toileting(FIM): 4 Transfers (B,C,W/C) (FIM): 4 (met) Toilet/Commode Transfer(FIM): 4 Shower Transfer(FIM): 4 Additional Short Term Goals: 1-Demonstrate ADL Tasks, 2-Verbalize Understanding , 3-ImproveStrength/Gifty 1=Demonstrate adherence to instructed precautions during ADL tasks. 2=Patient will verbalize/demonstrate understanding of assistive devices/ modifications for ADL. 3=Patient will improve strength/tolerance for activity to enable patient to perform ADL's. OT Snf Goals Snf Goals Time Frame: February 25, 2019 Eating (FIM): 6 Eating (QC): 6 Groomin Oral Hygiene (QC): 6 Bathing(FIM): 5 Shower/Bathe Self (QC): 5 Upper Body Dressing(FIM): 5 Upper Body Dressing (QC): 5 Lower Body Dressing(FIM): 5 Lower Body Dressing (QC): 5 On/Off Footwear (QC): 5 Toileting(FIM): 6 Toileting Hygiene (QC): 6 Transfers (B,C,W/C) (FIM): 6 Toilet/Commode Transfer(FIM): 6 Toilet/Commode Transfer (QC): 6 Shower Transfer(FIM): 5 Additional Goals: 1-Demonstrate ADL Tasks, 2-Verbalize Understanding, 3- ImproveStrength/Gifty 1=Demonstrate adherence to instructed precautions during ADL tasks. 2=Patient will verbalize/demonstrate understanding of assistive devices/ modifications for ADL. 3=Patient will improve strength/tolerance for activity to enable patient to perform ADL's. OT Education/Plan Problem List/Assessment Assessment: Decreased Activ Tolerance, Decreased UE Strength, Impaired Coordination, Impaired I ADL's, Impaired Self-Care Skills pt continue to make progress toward all OT goals. pt would benefit from additional OT services to maximize rehab potential and to increase overall independence with ADLS/ functional transfers. Discharge Recommendations Plan/Recommendations: Continue POC Therapy D/C Recommendations: Home w/ Family Support, Occupational Therapy Home Care Treatment Plan/Plan of Care Patient would benefit from OT for education, treatment and training to promote independence in ADL's, mobility, safety and/or upper extremity function for ADL' s. Plan of Care: ADL Retraining, Functional Mobility, Group Exercise/Act as Ind, UE Funct Exercise/Act Treatment Duration: February 25, 2019 Frequency: At least 5 of 7 days/Wk (IRF) Estimated Hrs Per Day: 1.5 hours per day Agreement: Yes Rehab Potential: Good Time/GCodes Start Time: 09:30 Stop Time: 10:30 Total Time Billed (hr/min): 60 Billed Treatment Time 1, Ex x 30minutes, FA x 30minutes PAULETTE HALL OT February 24, 2019 12:06
--- NOTE | 2019-02-24 13:02 | NUR ---
PT DIET ADVANCED TO REGULAR AND EATING WELL, 100% MEALS. WEIGHT HAS MAINTAINED. INTAKE MEETING NEEDS AT THIS TIME. CONT SAME.
--- NOTE | 2019-02-24 14:06 | Therapy Group Daily Note ---
Therapy Daily Group Note Patient Education Topic Energy Cons, Exercises Exercises LE Seated Exercise, ROM, Stretching, UE Exercise Session Ratio (pt:therapist): 4:1 Goal of Session: Education on ARU Expectations, Energy Conservation Tech., Memory Strategies, UE/LE Strengthing Goal Met for this Session: Yes Pt Benefit of Group: Contributions to Others, Increased Functional Strength, Improved Cognition, Recognition of Peers, Socialization Other/Notes Pt perform functional mobility to OT/PT group in ARU [facility] area. Group consisted of introductions (name, place living, favorite hobby), socialization, ARU expectations/description, and UE/LE seated exercises. Pt able to introduce self with one-two word answers then actively listened to peers. Pt acknowledged understanding of ARU by nodding head in affirmative. Pt able to complete UE/LE seated exercises without difficulty. Using light weight dice pt demo ability to throw dice and which number it lands on was the reps the patient completed as a group. patient has to instruct the other group member of the exercise. After therapy, pt lying in bed with call light/phone in reach. All needs met in room. Start Time: 13:00 Stop Time: 14:00 Total Billed Treatment GRP 60 minutes ANALY MEJIA OT February 24, 2019 14:06
--- NOTE | 2019-02-24 14:54 | NUR ---
provided prayer and Communion.
[2019-02-24] MEDS: TAMSULOSIN 0.4 MG (FLOMAX) CAP PO SCH (17:34)
[2019-02-24 17:36] VITALS: BP 134/66
--- NOTE | 2019-02-24 18:00 | NUR ---
PATIENT AND ARE INTERESTED IN TAKING DAY PASS EITHER DAY THIS WEEKEND.
[2019-02-24] MEDS: LIDOCAINE PATCH REMOVAL TP SCH (19:48)
[2019-02-24] MEDS: ATORVASTATIN 80 MG (LIPITOR) TABLET PO SCH (20:32)
[2019-02-25 05:06] VITALS: BP 104/51
[2019-02-25] MEDS: FERROUS SULF 325 MG (IRON) TAB PO SCH (06:13)
[2019-02-25] MEDS: BETHANECHOL 25 MG (URECHOLINE) TAB PO SCH ×4 (06:13→20:17)
[2019-02-25] MEDS: SERTRALINE 100 MG (ZOLOFT) TAB PO SCH (08:00)
[2019-02-25] MEDS: CLOPIDOGREL 75 MG (PLAVIX) TABLET PO SCH (08:01)
[2019-02-25] MEDS: SENNA W/DOCUSATE (SENOKOT S) TABLET PO SCH ×2 (08:01→20:17)
[2019-02-25] MEDS: ASPIRIN 81 MG CHEW (CHILDREN'S ASA) PO SCH (08:01)
[2019-02-25] MEDS: amLODIPine 5 MG (NORVASC) TAB PO SCH (08:03)
[2019-02-25] MEDS: BISOPROLOL 5 MG TAB (ZEBETA) PO SCH (08:03)
[2019-02-25] MEDS: POLYETHYLENE GLYCOL 17 GM (MIRALAX) PACK PO SCH ×2 (08:03→20:15)
[2019-02-25] MEDS: DICLOFENAC 1% GEL 100 GM (VOLTAREN) TUBE TOP SCH ×2 (08:03→20:15)
[2019-02-25] MEDS: LIDOCAINE 4% (SALONPAS) PATCH TOP SCH (08:03)
[2019-02-25] MEDS: SIMBRINZA PO SCH ×2 (08:04→20:17)
[2019-02-25] MEDS: EYE PO SCH ×2 (08:04→20:17)
[2019-02-25] MEDS: prednisoLONE 1% OPTH (PRED FORTE) 5 ML BTL OS SCH ×4 (08:05→20:18)
[2019-02-25 08:07] VITALS: BP 116/66
--- NOTE | 2019-02-25 08:21 | PM&R Progress Note ---
Subjective HPI/CC On Admission Date Seen by Provider: February 25, 2019 Time Seen by Provider: 08:30 CC: Ischemic stroke HPI: This is a 63-year-old white male of Dr. Schultz who presented to via [facility] ER on 01/23/19 with abrupt onset of severe weakness on the right side underwent stroke workup and found to be a candidate for TPA then shipped to [facility] and subsequently underwent left carotid endarterectomy on 01/25/19 but still remains with right sided weakness with severe expressive aphasia. Reviewed the entire record at [facility] and reviewed his home medications and patient appears to be ready to start aggressive physical therapy in order regain function. His drove him from and reports that he did well on the trip. His [id number] is a nurse and she helped reviewed the discharge med list. He is currently on. Diet with nectar thickened liquids. CT scan via [facility] and [facility] showed a left ischemic process of the MCA distribution. During hospital course the he had no significant clinical decompensation. Patient requires inpatient rehabilitation with 24 hour physician supervision to monitor her labile blood pressure and monitor for any hemorrhagic residual from ischemic stroke that cannot be provided in any type of lower level of care. 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 Subjective/Events-last exam Patient doing very well Walking a great deal with physical therapy Continues to have balance issues but really much improved the last week Eating and drinking well Bowels are moving Tolerating iron daily Conferred with acquisition cost estimator therapy notes Patient denies any concerns Review of Systems General: Fatigue Neurological: Weakness, Numbness, Incoordination Objective Exam Vital Signs Vital Signs Date Time Temp Pulse Resp B/P (MAP) Pulse Ox O2 Delivery O2 Flow Rate FiO2 02/25/19 09:06 Room Air 02/25/19 08:07 75 116/66 (83) 02/25/19 05:06 97.0 16 96 Capillary Refill : General Appearance: No Apparent Distress, WD/WN, Chronically ill HEENT: PERRL/EOMI, Pharynx Normal, Other (right facial droop) Neck: Full Range of Motion, Normal Inspection, Non Tender, Supple, Other ( incision left neck intact) Respiratory: Chest Non Tender, Lungs Clear, Normal Breath Sounds, No Accessory Muscle Use, No Respiratory Distress Cardiovascular: Regular Rate, Rhythm, No Edema, No Gallop, No JVD, No Murmur, Normal Peripheral Pulses Gastrointestinal: Normal Bowel Sounds, No Organomegaly, No Pulsatile Mass, Non Tender, Soft Back: Normal Inspection, No CVA Tenderness, No Vertebral Tenderness Extremity: Normal Capillary Refill, Normal Inspection, Non Tender, No Calf Tenderness, No Pedal Edema, Other (limited ROM right side and mild deficit left) Neurologic/Psychiatric: Alert, Normal Mood/Affect, Abnormal certified genetic counselor II-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 FIM Transfers Therapy Code Descriptions/Definitions Functional [place] Measure: 0=Not Assessed/NA 4=Minimal Assistance 1=Total Assistance 5=Supervision or Setup 2=Maximal Assistance 6=Modified [place] 3=Moderate Assistance 7=Complete [place] Therapy Quality Codes: 6 Independent with activity with or without an assistive device 5 Patient requires set up or clean up by helper. Patient completes activity by themselves 4 Supervision or touching assist (CGA). [place] provide cues , steadying assist 3 The helper provides less than half the effort to complete the activity 2 The helper provides more than half the effort to complete the activity 1 Dependent. The helper does all the effort to complete an activity 7 Patient refused to complete or attempt activity 9 The patient did not perform the activity before the current illness or injury 88 Not attempted due to Medical conditions or safety concerns Mental Status/Objective Comprehension: 6 Expression: 1 Social Interaction: 5 Problem Solvin Memory: 5 ADL-Treatment Feedin Eating (QC): 5 Groomin (Set up) Oral Hygiene (QC): 5 Bathin (SBA in shower to wash all parts.) Bathing Location: L Arm, R Arm, L Upper Leg, R Upper Leg, L Lower Leg ( including foot), R Lower Leg (including foot), Chest, Abdomen, Buttocks, Perineal Area Shower/Bathe Self (QC): 4 Upper Extremity Dressin Upper Body Dressing (QC): 4 Lower Extremity Dressin (Pt. is able to don all LE clothing pieces except for right shoe. Does need some assist with that.) Lower Body Dressing (QC): 4 On/Off Footwear (QC): 4 Toiletin (SBA for toileting.) Toileting Hygiene (QC): 4 Toilet/Commode Transfer: 5 Toilet Transfer (QC): 4 Shower: 4 Assessment/Plan Assessment and Plan Assess & Plan/Chief Complaint Assessment: (1) Ischemic stroke 01/23/19 (2) S/P carotid endarterectomy 01/25/19 with no improvement in right sided weakness while at [facility] (3) PVD (peripheral vascular disease) (4) CAD (coronary artery disease) (5) Expressive aphasia- improved 02/02/19 (6) Right sided weakness- improved (7) Anemia-iron def so starting iron 02/03/19 and changed from every other day to every day (8) Hypertension (9) S/P cataract extraction (10) Dysphagia (11) Hyperlipidemia (12) Constipation-resolved after meds (13) Klinefelter syndrome (14) Received intravenous tissue plasminogen activator (tPA) in emergency department 01/23/19 at [facility] ER (15) Depression (16) Former smoker (17) Hyponatremia improved on salt tablets and in process of weaning off (18) DVT prophylaxis (19) Urinary retention-consulted Urology, appreciate recs (20) Lee catheter was in place now DC but back with urinary retention s/p cysto so placed on Urecholine with Flomax and DC Lee and that is working well and voiding normally (21) Occult blood in stool we'll obtain endoscopy as an outpatient per primary care provider Plan: Patient doing extremely well and will rest from therapy today and start another week of intensive therapy prior to DC home Participating in all therapies as required Attempting to get back to prior level of functioning Speech working with expressive aphasia DC salt tablets now Blood pressure well controlled on Norvasc 5 MG Checked labs for regular monitoring and checked sodium level since weaning salt tablets and all results normal Hemoccult stools + and Dr Schultz has been notified and he informed me that he will perform endoscopy as an outpatient (1) Ischemic stroke (2) Anemia Assessment & Plan: Start iron therapy (3) Expressive aphasia (4) CAD (coronary artery disease) (5) Dysphagia (6) Hyperlipidemia (7) PVD (peripheral vascular disease) (8) Hypertension (9) Right sided weakness (10) Klinefelter syndrome (11) Constipation (12) Depression (13) Hyponatremia (14) DVT prophylaxis (15) Received intravenous tissue plasminogen activator (tPA) in emergency department (16) Urinary retention Assessment & Plan: Resolved (17) Lee catheter in place Assessment & Plan: Resolved (18) S/P carotid endarterectomy (19) S/P cataract extraction (20) Former smoker (21) Occult blood positive stool BOOGIE WHITTEN DO February 25, 2019 08:21
--- NOTE | 2019-02-25 09:20 | Physical Therapy Daily Note ---
PT Daily Note-Current Subjective Indicates his L hip has limited flexibility due to previous L THR. Denies pain. States he is looking forward to the indep living room and then home. Transfers Therapy Code Descriptions/Definitions Functional [place] Measure: 0=Not Assessed/NA 4=Minimal Assistance 1=Total Assistance 5=Supervision or Setup 2=Maximal Assistance 6=Modified [place] 3=Moderate Assistance 7=Complete [place] Therapy Quality Codes: 6 Independent with activity with or without an assistive device 5 Patient requires set up or clean up by helper. Patient completes activity by themselves 4 Supervision or touching assist (CGA). [place] provide cues , steadying assist 3 The helper provides less than half the effort to complete the activity 2 The helper provides more than half the effort to complete the activity 1 Dependent. The helper does all the effort to complete an activity 7 Patient refused to complete or attempt activity 9 The patient did not perform the activity before the current illness or injury 88 Not attempted due to Medical conditions or safety concerns Sit to stand: requires use of UE from bed, chair. He practiced sit to stand from armless chair 6 x with SBA - CGA x 1. At times initially unsteady. Weight Bearing Right Lower Extremity: Right Full Weight Bearing Left Lower Extremity: Left Full Weight Bearing Gait Training Amb without an assistive device x 150 ft but dragging R foot a little. Returned to quad cane. Amb from 2nd floor to 1st floor, up and down, with quad cane and handrail. Able to use R LE for stepping up but fatigued after 5 steps. Amb outside with quad cane and CGA x 1 in walking garden: steps, ramps, uneven surfaces. Needs cues to concentrate on R foot placement but no significant loss of balance. Amb x 80 ft with quad cane independently with good control as long as he concentrates. Stair Training 12 Steps (QC): 5 Exercises Supine Ex: Bridging, Ankle pumps, Rolling, Heel Slides, Knee to chest, Scooting , Straight leg raise, Hip abd/add Supine Reps: 10 Seated Therapy Exercises: Sit to stand Standing: Dynamic Reaching Ex Neuromuscular Standing balance challenges. Assessment Current Status: Good Progress Progressing with quad cane on all surfaces and steps. Still alittle unsteady if fatigued or distracted. PT Short Term Goals Short Term Goals Time Frame: Feb 04, 2019 Transfers (B,C,W/C) (FIM): 4 (met) Gait (FIM): 1 (met) Gait Distance Comment: 20' Gait Level of Assist: 3 Gait Assistive Device: Walker Henry Wheelchair Distance: 80' PT Fci Goals Teaching Specialists Goals PT Teaching Specialists Goals Time Frame: Feb 18, 2019 Transfers (B,C,W/C) (FIM): 4 Sit to Lying (QC): 4 Lying-Sitting on Side/Bed(QC): 4 Sit to Stand (QC): 4 Rollin Roll Left to Right (QC): 4 Chair/Onr-bf-Vwudf Xfer(QC): 4 Car Transfer (QC): 4 Gait (FIM): 2 Distance: 50' Walk 10 feet (QC): 3 Walk 10ft-Uneven Surface(QC): 3 Walk 50ft with 2 Turns (QC): 3 Gait Level of Assist: 4 Gait Assistive Device: Cane Large Base Quad Wheelchair (FIM): 6 Distance: 150' Wheelchair Level of Assist: 6 Wheel 50 feet with 2 turns (QC: 6 Stairs (FIM): 1 # of Steps: 1 1 Step (curb) (QC): 3 Stairs Level Of Assist: 4 PT Plan Treatment/Plan Treatment Plan: Continue Plan of Care Treatment Plan: Bed Mobility, Concurrent Therapy, Education, Functional Activity Gifty, Functional Strength, Group Therapy, Gait, Safety, Therapeutic Exercise, Transfers Treatment Duration: Feb 18, 2019 Frequency: At least 5 of 7 days/Wk (IRF) Estimated Hrs Per Day: 1.5 hours per day Patient and/or Family Agrees t: Yes Time/GCodes Time In: 815 Time Out: 915 Total Billed Treatment Time: 60 Total Billed Treatment 1, gt x 2 30 min, nm x 2 30 min LING [place] O PT February 25, 2019 09:20
--- NOTE | 2019-02-25 11:31 | Speech Therapy Daily Note ---
Speech Daily Progress Note Subjective Date Seen by Provider: February 25, 2019 Time Seen by Provider: 00:30 The patient was sitting in his recliner resting and watching tv when I entered his room. Objective The patient completed verbal deduction exercises with 88% accuracy given minimal cues. Assessment Assessment Current Status: Good Progress Treatment Plan Continue Plan of Care Communication Comprehension: 6 Expression: 1 Social Cognition Social Interaction: 5 Problem Solvin Memory: 5 Speech Short Term Goals Short Term Goals Short Term Goals 1) The patient will demonstrate orientation to person, place time and situation with 75% accuracy provided with stimulation and choices. 2) The patient will demonstrate correct naming of ten functional simple items during therapy session. 3) The patient will vollow one-step verbal commands with mod verbal/visual cues with 80% accuracy. 4) The patient will tolerate least restrictive diet level without signs/ symptoms of aspiration. 5) The patient will utilize compensatory strategies as trained for safe oral intake at 90% given minimal cues. Speech Primary Clinician Goals Usp Goals 1) Patient will communicate basic wants and needs with 2-3 word phrases during therapy sessions. 2) Patient will maintain adequate nutrition/hydration via safe effective swallow function. Speech-Plan Patient/Family Goals Patient/Family Goals: The patient plans to return home next week with his . Treatment Plan Speech Therapy Treatment Plan: Continue Plan of Care The patient has made good progress with expressive language as a result of skilled ST services. Treatment Duration: March 02, 2019 Frequency: 5 times per week Estimated Hrs Per Day: .5 hour per day Rehab Potential: Good Barriers to Learning: Exppressive aphasia Pt/Family Agrees to Plan: Yes Safety Risks/Education Teaching Recipient: Patient Teaching Methods: Demonstration, Discussion Response to Teaching: Verbalize Understanding, Return Demonstration Education Topics Provided: Expression strategies for home Time Speech Therapy Time In: 09:30 Speech Therapy Time Out: 10:00 Total Billed Time: 30 Billed Treatment Time 1, EMILY Rivero February 25, 2019 11:31
--- NOTE | 2019-02-25 13:59 | NUR ---
Due to the passing of patient's sister, discharge will occur on Thursday 03/01 in order for patient to attend on 03/02. ACCOUNTING SUPPORT SPECIALIST discussed changes with Dr. Jalloh and therapy, both are in agreement. Addendum: 02/25/19 at 1400 by LUZ MARIA FORBES SS ACCOUNTING SUPPORT SPECIALIST [facility] [employer] insurance provider with updated discharge date. Addendum: 02/25/19 at 1511 by LUZ MARIA FORBES SS ACCOUNTING SUPPORT SPECIALIST contacted [facility] outpatient therapy to inquire about wait time for PT and OT eval and treatments, Ileana states their able to schedule PT evaluation for 03/04 at 945 and potentially schedule OT evaluation following PT. ACCOUNTING SUPPORT SPECIALIST awaiting recommendation of speech therapist to determine if outpatient speech is needed. ACCOUNTING SUPPORT SPECIALIST provided update of schedule to patients .
--- NOTE | 2019-02-25 14:16 | Physical Therapy Daily Note ---
PT Daily Note-Current Subjective Agrees to PT. Mental Status Patient Orientation: Person, Place, Time, Situation Transfers Therapy Code Descriptions/Definitions Functional [place] Measure: 0=Not Assessed/NA 4=Minimal Assistance 1=Total Assistance 5=Supervision or Setup 2=Maximal Assistance 6=Modified [place] 3=Moderate Assistance 7=Complete [place] Therapy Quality Codes: 6 Independent with activity with or without an assistive device 5 Patient requires set up or clean up by helper. Patient completes activity by themselves 4 Supervision or touching assist (CGA). [place] provide cues , steadying assist 3 The helper provides less than half the effort to complete the activity 2 The helper provides more than half the effort to complete the activity 1 Dependent. The helper does all the effort to complete an activity 7 Patient refused to complete or attempt activity 9 The patient did not perform the activity before the current illness or injury 88 Not attempted due to Medical conditions or safety concerns Sit to stand with SBA; pt did need a reminder to use his quad cane. Slightly unsteady with initial stance but able to balance himself. Weight Bearing Right Lower Extremity: Right Full Weight Bearing Left Lower Extremity: Left Full Weight Bearing Gait Training Gait (FIM): 4 (CGA with gait for safety due to challenging surfaces) Gait Assistive Device: Cane Small Base Quad Pt walked with QC x >500 ft to include entering /exiting the elevator; up/down a slope. He clears his right foot 80% of the time but does catch his toe occas ; albeit able to right himself; he did have 1 event on the slope where min assist was required to right him. He walked across a 3 ft carpet; 5 ft of uneven surface and up/down curb step x 4 reps with CGA. Pt also walked up 2 flights of stairs with QC and handrail with CGA and cues for safety. Assessment Current Status: Good Progress Pt is making good functional progress; however is unsteady at times and I feel for safety CGA is warranted. He appears aware of foot clearance on his right but seems to have difficulty at times. PT Short Term Goals Short Term Goals Time Frame: Feb 04, 2019 Transfers (B,C,W/C) (FIM): 4 (met) Gait (FIM): 1 (met) Gait Distance Comment: 20' Gait Level of Assist: 3 Gait Assistive Device: Walker [place] Wheelchair Distance: 80' PT Snf Goals Rn Lactation Goals PT Rn Lactation Goals Time Frame: Feb 18, 2019 Transfers (B,C,W/C) (FIM): 4 (met) Sit to Lying (QC): 4 Lying-Sitting on Side/Bed(QC): 4 Sit to Stand (QC): 4 Rollin Roll Left to Right (QC): 4 Chair/Iiq-kq-Otkih Xfer(QC): 4 Car Transfer (QC): 4 Gait (FIM): 2 Distance: 50' Walk 10 feet (QC): 3 Walk 10ft-Uneven Surface(QC): 3 Walk 50ft with 2 Turns (QC): 3 Gait Level of Assist: 4 Gait Assistive Device: Cane Large Base Quad Wheelchair (FIM): 6 Distance: 150' Wheelchair Level of Assist: 6 Wheel 50 feet with 2 turns (QC: 6 Stairs (FIM): 1 # of Steps: 1 1 Step (curb) (QC): 3 Stairs Level Of Assist: 4 PT Plan Problem List Problem List: Activity Tolerance, Functional Strength, Safety Treatment/Plan Treatment Plan: Continue Plan of Care Treatment Plan: Bed Mobility, Concurrent Therapy, Education, Functional Activity Gifty, Functional Strength, Group Therapy, Gait, Safety, Therapeutic Exercise, Transfers Treatment Duration: Feb 18, 2019 Frequency: At least 5 of 7 days/Wk (IRF) Estimated Hrs Per Day: 1.5 hours per day Patient and/or Family Agrees t: Yes Safety Risks/Education Patient Education: Safety Issues Teaching Recipient: Patient Teaching Methods: Demonstration, Discussion Response to Teaching: Return Demonstration, Reinforcement Needed Discharge Recommendations Therapy D/C Recommendations: Physical Therapy Home Care (vs outpt PT) Time/GCodes Time In: 1227 Time Out: 1300 Total Billed Treatment Time: 33 Total Billed Treatment visit GT 33 SHASHI MAHAJAN PT February 25, 2019 14:16
--- NOTE | 2019-02-25 14:28 | Occupational Ther Daily Note ---
OT Current Status-Daily Note Subjective No pain reported. Appearance Pt. up in chair. Agrees to shower. Mental Status/Objective Patient Orientation: Person, Place Therapy Code Descriptions/Definitions Functional [place] Measure: 0=Not Assessed/NA 4=Minimal Assistance 1=Total Assistance 5=Supervision or Setup 2=Maximal Assistance 6=Modified [place] 3=Moderate Assistance 7=Complete [place] ADL-Treatment Therapy Code Descriptions/Definitions Functional [place] Measure: 0=Not Assessed/NA 4=Minimal Assistance 1=Total Assistance 5=Supervision or Setup 2=Maximal Assistance 6=Modified [place] 3=Moderate Assistance 7=Complete [place] Therapy Quality Codes: 6 Independent with activity with or without an assistive device 5 Patient requires set up or clean up by helper. Patient completes activity by themselves 4 Supervision or touching assist (CGA). [place] provide cues , steadying assist 3 The helper provides less than half the effort to complete the activity 2 The helper provides more than half the effort to complete the activity 1 Dependent. The helper does all the effort to complete an activity 7 Patient refused to complete or attempt activity 9 The patient did not perform the activity before the current illness or injury 88 Not attempted due to Medical conditions or safety concerns Grooming (FIM): 5 (SBA in stance at sink to brush teeth and hair.) Oral Hygiene (QC): 4 Bathing (FIM): 4 (CGA for one LOB during standing in shower.) Shower/Bathe Self (QC): 4 Upper Body (FIM): 5 (Cues to turn shirt around correctly.) Upper Body Dressing (QC): 4 Lower Body Dressing (FIM): 4 (Cues to pull up pants on right side. Pt. pulled pants up, but was not aware that they were fully not up on right side. Pt. is able to don shoes with using dycem mat on knee to position foot better.) Lower Body Dressing (QC): 4 On/Off Footwear (QC): 4 Transfers (B, C, W/C) (FIM): 4 (Pt has a couple of small LOBs in standing with this therapist. Required slight tactile cues to correct self.) Shower Transfer(FIM): 4 Other Treatment Pt. agrees to ambulate to therapy gym after ADLs in bathroom. Completed 15 minutes on armbike at mod resistance to increase overall strength and independence. OT asked pt. aliya questions that he would know while he did this. OT gave pt. multiple options during each trivia question in hopes that he could verbally respond. Pt. able to do this somewhat, but still unintelligible. After bike task, pt. and OT worked on visual perceptual task and fine motor task with pt. attempting to write, trace, and fine objects on paper using right hand. Pt. is able to write his name 3 times and connect dots , but does not know how to write his address. Attempted to complete word search , but became frustrated. Ambulated back to room. Lunch present and OT observed pt. opening packages. Cues to open chips and encouraged to attempt using right hand as well. All needs met. Education OT Patient Education: Correct positioning, Exercise program, Modified ADL techniques, Progress toward Goal/Update tx plan, Purpose of tx/functional activities, Reviewed precautions, Rehab process, Transfer techniques Teaching Recipient: Patient Teaching Methods: Demonstration, Discussion Response to Teaching: Verbalize Understanding, Return Demonstration OT Short Term Goals Short Term Goals Time Frame: Feb 11, 2019 Eating(FIM): 4 Grooming(FIM): 44 Bathing(FIM): 3 Upper Body Dressing(FIM): 3 Lower Body Dressing(FIM): 3 Toileting(FIM): 4 Transfers (B,C,W/C) (FIM): 4 (met) Toilet/Commode Transfer(FIM): 4 Shower Transfer(FIM): 4 Additional Short Term Goals: 1-Demonstrate ADL Tasks, 2-Verbalize Understanding , 3-ImproveStrength/Gifty 1=Demonstrate adherence to instructed precautions during ADL tasks. 2=Patient will verbalize/demonstrate understanding of assistive devices/ modifications for ADL. 3=Patient will improve strength/tolerance for activity to enable patient to perform ADL's. OT Retirement Goals Retirement Goals Time Frame: February 25, 2019 Eating (FIM): 6 Eating (QC): 6 Groomin Oral Hygiene (QC): 6 Bathing(FIM): 5 Shower/Bathe Self (QC): 5 Upper Body Dressing(FIM): 5 Upper Body Dressing (QC): 5 Lower Body Dressing(FIM): 5 Lower Body Dressing (QC): 5 On/Off Footwear (QC): 5 Toileting(FIM): 6 Toileting Hygiene (QC): 6 Transfers (B,C,W/C) (FIM): 6 Toilet/Commode Transfer(FIM): 6 Toilet/Commode Transfer (QC): 6 Shower Transfer(FIM): 5 Additional Goals: 1-Demonstrate ADL Tasks, 2-Verbalize Understanding, 3- ImproveStrength/Gifty 1=Demonstrate adherence to instructed precautions during ADL tasks. 2=Patient will verbalize/demonstrate understanding of assistive devices/ modifications for ADL. 3=Patient will improve strength/tolerance for activity to enable patient to perform ADL's. OT Education/Plan Problem List/Assessment Assessment: Decreased Activ Tolerance, Decreased UE Strength, Impaired Coordination, Impaired I ADL's, Impaired Self-Care Skills pt continue to make progress toward all OT goals. pt would benefit from additional OT services to maximize rehab potential and to increase overall independence with ADLS/ functional transfers. Discharge Recommendations Plan/Recommendations: Continue POC Therapy D/C Recommendations: Home w/ Family Support, Occupational Therapy Home Care Treatment Plan/Plan of Care Treatment,Training & Education: Yes Patient would benefit from OT for education, treatment and training to promote independence in ADL's, mobility, safety and/or upper extremity function for ADL' s. Plan of Care: ADL Retraining, Functional Mobility, Group Exercise/Act as Ind, UE Funct Exercise/Act Treatment Duration: February 25, 2019 Frequency: At least 5 of 7 days/Wk (IRF) Estimated Hrs Per Day: 1.5 hours per day Agreement: Yes Rehab Potential: Good Time/GCodes Start Time: 10:45 Stop Time: 12:00 Total Time Billed (hr/min): 75 Billed Treatment Time 1, ADL x 45minutes, Ex x 15minutes, FA x 15minutes PAULETTE HALL OT February 25, 2019 14:28
[2019-02-25 15:49] VITALS: BP 131/68
[2019-02-25] MEDS: TAMSULOSIN 0.4 MG (FLOMAX) CAP PO SCH (16:52)
[2019-02-25] MEDS: LIDOCAINE PATCH REMOVAL TP SCH (20:15)
[2019-02-25] MEDS: ATORVASTATIN 80 MG (LIPITOR) TABLET PO SCH (20:17)
[2019-02-26] MEDS: BETHANECHOL 25 MG (URECHOLINE) TAB PO SCH ×4 (05:48→20:46)
[2019-02-26] MEDS: FERROUS SULF 325 MG (IRON) TAB PO SCH (05:48)
[2019-02-26 06:00] VITALS: BP 123/65
--- NOTE | 2019-02-26 08:22 | Occupational Ther Daily Note ---
OT Current Status-Daily Note Subjective Pt alert, sitting in recliner. Pt agrees to therapy. No c/o pain at this time. Mental Status/Objective Patient Orientation: Person, Place, Time, Situation Therapy Code Descriptions/Definitions Functional [place] Measure: 0=Not Assessed/NA 4=Minimal Assistance 1=Total Assistance 5=Supervision or Setup 2=Maximal Assistance 6=Modified [place] 3=Moderate Assistance 7=Complete [place] ADL-Treatment Pt declines shower. Wants to complete grooming only. Sitting at sink, pt able to complete grooming by self. Pt is utilizing R hand to assist with completing functional tasks. Pt does take increased time to complete B UE activities/ tasks due to this. Pt continues to work on donning/doffing socks and shoes by self. Has elastic shoelaces to assist with this. Therapy Code Descriptions/Definitions Functional [place] Measure: 0=Not Assessed/NA 4=Minimal Assistance 1=Total Assistance 5=Supervision or Setup 2=Maximal Assistance 6=Modified [place] 3=Moderate Assistance 7=Complete [place] Therapy Quality Codes: 6 Independent with activity with or without an assistive device 5 Patient requires set up or clean up by helper. Patient completes activity by themselves 4 Supervision or touching assist (CGA). [place] provide cues , steadying assist 3 The helper provides less than half the effort to complete the activity 2 The helper provides more than half the effort to complete the activity 1 Dependent. The helper does all the effort to complete an activity 7 Patient refused to complete or attempt activity 9 The patient did not perform the activity before the current illness or injury 88 Not attempted due to Medical conditions or safety concerns Grooming (FIM): 6 Oral Hygiene (QC): 6 Other Treatment Pt ambulated using wide base cane with CGA to therapy gym. Pt did have 2 LOB toward L side while ambulating to/from gym. Pt complete UE gross/fine motor tasks to work on strength, dexterity and activity tolerance. Pt required support for R UE to stay elevated while stabilizing bolt or nut with nut/bolt activity. Pt then was able to complete arm bike for 10 min with low resistance to increase strength and activity tolerance, 5 min forward rotation and 5 min backward rotation. Pt required recovery breaks throughout neuromuscular activities for R UE. After therapy, pt sitting in recliner with call light/ phone in reach. All needs met in room. OT Short Term Goals Short Term Goals Time Frame: Feb 11, 2019 Eating(FIM): 4 Grooming(FIM): 44 Bathing(FIM): 3 Upper Body Dressing(FIM): 3 Lower Body Dressing(FIM): 3 Toileting(FIM): 4 Transfers (B,C,W/C) (FIM): 4 (met) Toilet/Commode Transfer(FIM): 4 Shower Transfer(FIM): 4 Additional Short Term Goals: 1-Demonstrate ADL Tasks, 2-Verbalize Understanding , 3-ImproveStrength/Gifty 1=Demonstrate adherence to instructed precautions during ADL tasks. 2=Patient will verbalize/demonstrate understanding of assistive devices/ modifications for ADL. 3=Patient will improve strength/tolerance for activity to enable patient to perform ADL's. OT Longterm Goals Longterm Goals Time Frame: February 25, 2019 Eating (FIM): 6 Eating (QC): 6 Groomin Oral Hygiene (QC): 6 Bathing(FIM): 5 Shower/Bathe Self (QC): 5 Upper Body Dressing(FIM): 5 Upper Body Dressing (QC): 5 Lower Body Dressing(FIM): 5 Lower Body Dressing (QC): 5 On/Off Footwear (QC): 5 Toileting(FIM): 6 Toileting Hygiene (QC): 6 Transfers (B,C,W/C) (FIM): 6 Toilet/Commode Transfer(FIM): 6 Toilet/Commode Transfer (QC): 6 Shower Transfer(FIM): 5 Additional Goals: 1-Demonstrate ADL Tasks, 2-Verbalize Understanding, 3- ImproveStrength/Gifty 1=Demonstrate adherence to instructed precautions during ADL tasks. 2=Patient will verbalize/demonstrate understanding of assistive devices/ modifications for ADL. 3=Patient will improve strength/tolerance for activity to enable patient to perform ADL's. OT Education/Plan Problem List/Assessment Assessment: Decreased UE Strength, Impaired Coordination, Impaired Funct Balance, Impaired Self-Care Skills, Restricted Funct UE ROM pt continue to make progress toward all OT goals. pt would benefit from additional OT services to maximize rehab potential and to increase overall independence with ADLS/ functional transfers. Discharge Recommendations Plan/Recommendations: Continue POC Treatment Plan/Plan of Care Patient would benefit from OT for education, treatment and training to promote independence in ADL's, mobility, safety and/or upper extremity function for ADL' s. Plan of Care: ADL Retraining, Functional Mobility, Group Exercise/Act as Ind, UE Funct Exercise/Act Treatment Duration: February 25, 2019 Frequency: At least 5 of 7 days/Wk (IRF) Estimated Hrs Per Day: 1.5 hours per day Agreement: Yes Rehab Potential: Good Time/GCodes Start Time: 08:00 Stop Time: 09:15 Total Time Billed (hr/min): 75 Billed Treatment Time 1 visit-ADL 2 (30 min) FA 1 (20 min) NM 2 (25 min) SHASHI SIMS February 26, 2019 08:22
--- NOTE | 2019-02-26 08:45 | PM&R Progress Note ---
Subjective HPI/CC On Admission Date Seen by Provider: February 26, 2019 Time Seen by Provider: 08:30 CC: Ischemic stroke HPI: This is a 63-year-old white male of Dr. Schultz who presented to via [facility] ER on 01/23/19 with abrupt onset of severe weakness on the right side underwent stroke workup and found to be a candidate for TPA then shipped to [facility] and subsequently underwent left carotid endarterectomy on 01/25/19 but still remains with right sided weakness with severe expressive aphasia. Reviewed the entire record at [facility] and reviewed his home medications and patient appears to be ready to start aggressive physical therapy in order regain function. His drove him from and reports that he did well on the trip. His [id number]-fky is a nurse and she helped reviewed the discharge med list. He is currently on. Diet with nectar thickened liquids. CT scan via [facility] and [facility] showed a left ischemic process of the MCA distribution. During hospital course the he had no significant clinical decompensation. Patient requires inpatient rehabilitation with 24 hour physician supervision to monitor her labile blood pressure and monitor for any hemorrhagic residual from ischemic stroke that cannot be provided in any type of lower level of care. 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 Subjective/Events-last exam Patient doing very well and continues to improve each day Walking a great deal with physical therapy Continues to have balance issues but really much improved the last week so it has been beneficial to stay the extra week Eating and drinking well Bowels are moving Tolerating iron daily since changed from QOD by PCP Conferred with junior art director therapy notes Patient denies any concerns Review of Systems General: Fatigue Neurological: Weakness, Numbness, Incoordination Objective Exam Vital Signs Vital Signs Date Time Temp Pulse Resp B/P (MAP) Pulse Ox O2 Delivery O2 Flow Rate FiO2 02/26/19 06:00 97.6 60 20 123/65 (84) 97 Room Air Capillary Refill : General Appearance: No Apparent Distress, WD/WN, Chronically ill HEENT: PERRL/EOMI, Normal ENT Inspection, Pharynx Normal, Other (right facial droop) Neck: Full Range of Motion, Normal Inspection, Non Tender, Supple, Other ( incision left neck intact) Respiratory: Chest Non Tender, Lungs Clear, Normal Breath Sounds, No Accessory Muscle Use, No Respiratory Distress Cardiovascular: Regular Rate, Rhythm, No Edema, No Gallop, No JVD, No Murmur, Normal Peripheral Pulses Gastrointestinal: Normal Bowel Sounds, No Organomegaly, No Pulsatile Mass, Non Tender, Soft Back: Normal Inspection, No CVA Tenderness, No Vertebral Tenderness Extremity: Normal Capillary Refill, Normal Inspection, Non Tender, No Calf Tenderness, No Pedal Edema, Other (limited ROM right side and mild deficit left) Neurologic/Psychiatric: Alert, Normal Mood/Affect, Abnormal spanish moss picker II-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 FIM Transfers Therapy Code Descriptions/Definitions Functional [place] Measure: 0=Not Assessed/NA 4=Minimal Assistance 1=Total Assistance 5=Supervision or Setup 2=Maximal Assistance 6=Modified [place] 3=Moderate Assistance 7=Complete [place] Therapy Quality Codes: 6 Independent with activity with or without an assistive device 5 Patient requires set up or clean up by helper. Patient completes activity by themselves 4 Supervision or touching assist (CGA). [place] provide cues , steadying assist 3 The helper provides less than half the effort to complete the activity 2 The helper provides more than half the effort to complete the activity 1 Dependent. The helper does all the effort to complete an activity 7 Patient refused to complete or attempt activity 9 The patient did not perform the activity before the current illness or injury 88 Not attempted due to Medical conditions or safety concerns Mental Status/Objective Comprehension: 6 Expression: 1 Social Interaction: 5 Problem Solvin Memory: 5 ADL-Treatment Feedin Eating (QC): 5 Groomin (SBA in stance at sink to brush teeth and hair.) Oral Hygiene (QC): 4 Bathin (CGA for one LOB during standing in shower.) Bathing Location: L Arm, R Arm, L Upper Leg, R Upper Leg, L Lower Leg ( including foot), R Lower Leg (including foot), Chest, Abdomen, Buttocks, Perineal Area Shower/Bathe Self (QC): 4 Upper Extremity Dressin (Cues to turn shirt around correctly.) Upper Body Dressing (QC): 4 Lower Extremity Dressin (Cues to pull up pants on right side. Pt. pulled pants up, but was not aware that they were fully not up on right side. Pt. is able to don shoes with using dycem mat on knee to position foot better.) Lower Body Dressing (QC): 4 On/Off Footwear (QC): 4 Toiletin (SBA for toileting.) Toileting Hygiene (QC): 4 Toilet/Commode Transfer: 5 Toilet Transfer (QC): 4 Shower: 4 Assessment/Plan Assessment and Plan Assess & Plan/Chief Complaint Assessment: (1) Ischemic stroke 01/23/19 (2) S/P carotid endarterectomy 01/25/19 with no improvement in right sided weakness while at [facility] (3) PVD (peripheral vascular disease) (4) CAD (coronary artery disease) (5) Expressive aphasia- improved 02/02/19 (6) Right sided weakness- improved (7) Anemia-iron def so starting iron 02/03/19 and changed from every other day to every day (8) Hypertension (9) S/P cataract extraction (10) Dysphagia (11) Hyperlipidemia (12) Constipation-resolved after meds (13) Klinefelter syndrome (14) Received intravenous tissue plasminogen activator (tPA) in emergency department 01/23/19 at [facility] ER (15) Depression (16) Former smoker (17) Hyponatremia improved on salt tablets and in process of weaning off (18) DVT prophylaxis (19) Urinary retention-consulted Urology, appreciate recs (20) Lee catheter was in place now DC but back with urinary retention s/p cysto so placed on Urecholine with Flomax and DC Lee and that is working well and voiding normally (21) Occult blood in stool we'll obtain endoscopy as an outpatient per primary care provider Plan: Patient doing extremely well and will rest from therapy today and start another week of intensive therapy prior to DC home Participating in all therapies as required Attempting to get back to prior level of functioning Speech working with expressive aphasia DC salt tablets now Blood pressure well controlled on Norvasc 5 MG Checked labs for regular monitoring and checked sodium level since weaning salt tablets and all results normal Hemoccult stools + and Dr Schultz has been notified and he informed me that he will perform endoscopy as an outpatient (1) Ischemic stroke (2) Anemia Assessment & Plan: Start iron therapy (3) Expressive aphasia (4) CAD (coronary artery disease) (5) Dysphagia (6) Hyperlipidemia (7) PVD (peripheral vascular disease) (8) Hypertension (9) Right sided weakness (10) Klinefelter syndrome (11) Constipation (12) Depression (13) Hyponatremia (14) DVT prophylaxis (15) Received intravenous tissue plasminogen activator (tPA) in emergency department (16) Urinary retention Assessment & Plan: Resolved (17) Lee catheter in place Assessment & Plan: Resolved (18) S/P carotid endarterectomy (19) S/P cataract extraction (20) Former smoker (21) Occult blood positive stool BOOGIE WHITTEN DO February 26, 2019 08:45
--- NOTE | 2019-02-26 09:00 | NUR ---
WAS CALLED TO SEE IF SHE KNEW HOW LONG PATIENT WAS TO BE ON PRED FORTE EYE DROPS TO LEFT EYE POST CATARACT SURGERY. SHE WILL CHECK INSTRUCTIONS AND GET BACK TO US.
[2019-02-26] MEDS: BISOPROLOL 5 MG TAB (ZEBETA) PO SCH (09:23)
[2019-02-26] MEDS: CLOPIDOGREL 75 MG (PLAVIX) TABLET PO SCH (09:24)
[2019-02-26] MEDS: SENNA W/DOCUSATE (SENOKOT S) TABLET PO SCH ×2 (09:24→20:47)
[2019-02-26] MEDS: ASPIRIN 81 MG CHEW (CHILDREN'S ASA) PO SCH (09:24)
[2019-02-26] MEDS: SERTRALINE 100 MG (ZOLOFT) TAB PO SCH (09:24)
[2019-02-26] MEDS: amLODIPine 5 MG (NORVASC) TAB PO SCH (09:25)
[2019-02-26] MEDS: POLYETHYLENE GLYCOL 17 GM (MIRALAX) PACK PO SCH ×2 (09:27→20:47)
[2019-02-26] MEDS: LIDOCAINE 4% (SALONPAS) PATCH TOP SCH (09:28)
[2019-02-26] MEDS: DICLOFENAC 1% GEL 100 GM (VOLTAREN) TUBE TOP SCH ×2 (09:28→20:47)
[2019-02-26] MEDS: EYE PO SCH ×2 (09:53→20:47)
[2019-02-26] MEDS: SIMBRINZA PO SCH ×2 (09:53→20:47)
[2019-02-26] MEDS: prednisoLONE 1% OPTH (PRED FORTE) 5 ML BTL OS SCH ×4 (09:53→20:47)
--- NOTE | 2019-02-26 11:00 | NUR ---
ORDER RECEIVED FOR DAY PASS THIS WEEKEND - PATIENT AND UNSURE AT THIS TIME WHICH DAY IT WILL BE. LIABILITY RELEASE SIGNED. DR. AMARAL VISITED.
--- NOTE | 2019-02-26 11:14 | Physical Therapy Daily Note ---
PT Daily Note-Current Subjective Pt. pleasant and cooperative, has difficulty finding words as well as following commands and sequence at times Pain Location: No Pain Reported Transfers Therapy Code Descriptions/Definitions Functional [place] Measure: 0=Not Assessed/NA 4=Minimal Assistance 1=Total Assistance 5=Supervision or Setup 2=Maximal Assistance 6=Modified [place] 3=Moderate Assistance 7=Complete [place] Therapy Quality Codes: 6 Independent with activity with or without an assistive device 5 Patient requires set up or clean up by helper. Patient completes activity by themselves 4 Supervision or touching assist (CGA). [place] provide cues , steadying assist 3 The helper provides less than half the effort to complete the activity 2 The helper provides more than half the effort to complete the activity 1 Dependent. The helper does all the effort to complete an activity 7 Patient refused to complete or attempt activity 9 The patient did not perform the activity before the current illness or injury 88 Not attempted due to Medical conditions or safety concerns Transfers (B, C, W/C) (FIM): 5 Scootin (needs much instruction) Rollin Supine to/from Sit: 5 Sit to/from Stand: 5 Weight Bearing Right Lower Extremity: Right Full Weight Bearing Left Lower Extremity: Left Full Weight Bearing Gait Training Does the Patient Walk?: Yes Gait (FIM): 5 Distance (FIM): 3=150 ft (150x2) Gait Level of Assist: 5 Gait Persons Needed: 1 Gait Assistive Device: Cane Large Base Quad Exercises Supine Ex: Bridging, Ankle pumps, Rolling, Lower trunk rotation, Scooting, Straight leg raise, Hip abd/add (sidelying) all 4s, crawling and prone exercises very challenging for patient NuStep Minutes: 10 NuStep Workload: 3 Assessment Current Status: Good Progress progressing well PT Short Term Goals Short Term Goals Time Frame: Feb 04, 2019 Transfers (B,C,W/C) (FIM): 4 (met) Gait (FIM): 1 (met) Gait Distance Comment: 20' Gait Level of Assist: 3 Gait Assistive Device: Walker Henry Wheelchair Distance: 80' PT Correction Goals Audiovisual Librarian Goals PT Correction Goals Time Frame: Feb 18, 2019 Transfers (B,C,W/C) (FIM): 4 (met) Sit to Lying (QC): 4 Lying-Sitting on Side/Bed(QC): 4 Sit to Stand (QC): 4 Rollin Roll Left to Right (QC): 4 Chair/Yat-wd-Rbeyl Xfer(QC): 4 Car Transfer (QC): 4 Gait (FIM): 2 Distance: 50' Walk 10 feet (QC): 3 Walk 10ft-Uneven Surface(QC): 3 Walk 50ft with 2 Turns (QC): 3 Gait Level of Assist: 4 Gait Assistive Device: Cane Large Base Quad Wheelchair (FIM): 6 Distance: 150' Wheelchair Level of Assist: 6 Wheel 50 feet with 2 turns (QC: 6 Stairs (FIM): 1 # of Steps: 1 1 Step (curb) (QC): 3 Stairs Level Of Assist: 4 PT Plan Treatment/Plan Treatment Plan: Continue Plan of Care Treatment Plan: Bed Mobility, Concurrent Therapy, Education, Functional Activity Gifty, Functional Strength, Group Therapy, Gait, Safety, Therapeutic Exercise, Transfers Treatment Duration: Feb 18, 2019 Frequency: At least 5 of 7 days/Wk (IRF) Estimated Hrs Per Day: 1.5 hours per day Patient and/or Family Agrees t: Yes Safety Risks/Education Patient Education: Gait Training, Transfer Techniques, Correct Positioning, Disease Process, Safety Issues Teaching Recipient: Patient Teaching Methods: Demonstration, Discussion Response to Teaching: Verbalize Understanding, Return Demonstration, Reinforcement Needed Time/GCodes Time In: 1000 Time Out: 1100 Total Billed Treatment Time: 60 Total Billed Treatment 1,GT15m,FA20m,EX25m G Codes Necessary: ALETHEA Garcia DISTRICT OR DISTRICT OFFICE DIRECTOR February 26, 2019 11:14
--- NOTE | 2019-02-26 13:16 | Physical Therapy Daily Note ---
PT Daily Note-Current Subjective Agrees to Rx. Pain Location: No Pain Reported Transfers Therapy Code Descriptions/Definitions Functional [place] Measure: 0=Not Assessed/NA 4=Minimal Assistance 1=Total Assistance 5=Supervision or Setup 2=Maximal Assistance 6=Modified [place] 3=Moderate Assistance 7=Complete [place] Therapy Quality Codes: 6 Independent with activity with or without an assistive device 5 Patient requires set up or clean up by helper. Patient completes activity by themselves 4 Supervision or touching assist (CGA). [place] provide cues , steadying assist 3 The helper provides less than half the effort to complete the activity 2 The helper provides more than half the effort to complete the activity 1 Dependent. The helper does all the effort to complete an activity 7 Patient refused to complete or attempt activity 9 The patient did not perform the activity before the current illness or injury 88 Not attempted due to Medical conditions or safety concerns all sit to stand and sup to sit SBA to Mod I Weight Bearing Right Lower Extremity: Right Full Weight Bearing Left Lower Extremity: Left Full Weight Bearing Gait Training Gait Assistive Device: Cane Single Point gait 150 ft x 2 with cane, good sequence, staggers slightly and needs skilled cues for step length and foot clearance Treatments completed ESTEVEZ at 36/56 Assessment Current Status: Good Progress at risk for falls, will have FT care at home? PT Short Term Goals Short Term Goals Time Frame: Feb 04, 2019 Transfers (B,C,W/C) (FIM): 4 (met) Gait (FIM): 1 (met) Gait Distance Comment: 20' Gait Level of Assist: 3 Gait Assistive Device: Walker Henry Wheelchair Distance: 80' PT Reaming Machine Operator For Plastic Goals Intermediate Goals PT Intermediate Goals Time Frame: Feb 18, 2019 Transfers (B,C,W/C) (FIM): 4 (met) Sit to Lying (QC): 4 Lying-Sitting on Side/Bed(QC): 4 Sit to Stand (QC): 4 Rollin Roll Left to Right (QC): 4 Chair/Bok-de-Fwhkq Xfer(QC): 4 Car Transfer (QC): 4 Gait (FIM): 2 Distance: 50' Walk 10 feet (QC): 3 Walk 10ft-Uneven Surface(QC): 3 Walk 50ft with 2 Turns (QC): 3 Gait Level of Assist: 4 Gait Assistive Device: Cane Large Base Quad Wheelchair (FIM): 6 Distance: 150' Wheelchair Level of Assist: 6 Wheel 50 feet with 2 turns (QC: 6 Stairs (FIM): 1 # of Steps: 1 1 Step (curb) (QC): 3 Stairs Level Of Assist: 4 PT Plan Treatment/Plan Treatment Plan: Continue Plan of Care Treatment Plan: Bed Mobility, Concurrent Therapy, Education, Functional Activity Gifty, Functional Strength, Group Therapy, Gait, Safety, Therapeutic Exercise, Transfers Treatment Duration: Feb 18, 2019 Frequency: At least 5 of 7 days/Wk (IRF) Estimated Hrs Per Day: 1.5 hours per day Patient and/or Family Agrees t: Yes Safety Risks/Education Patient Education: Gait Training, Transfer Techniques, Correct Positioning, Safety Issues Teaching Recipient: Patient Teaching Methods: Demonstration, Discussion Response to Teaching: Verbalize Understanding, Return Demonstration, Reinforcement Needed Time/GCodes Time In: 1300 Time Out: 1315 Total Billed Treatment Time: 15 Total Billed Treatment 1,NM15m G Codes Necessary: ALETHEA Garcia STENOTYPIST February 26, 2019 13:16
[2019-02-26 15:45] VITALS: BP 133/71
[2019-02-26] MEDS: TAMSULOSIN 0.4 MG (FLOMAX) CAP PO SCH (17:54)
--- NOTE | 2019-02-26 18:30 | NUR ---
[facility] STATES WILL PARADICHLOROBENZENE TENDER PATIENT FOR DAY PASS TOMORROW AROUND [id number] AND PLANS TO BE GONE AROUND 2 HOURS.
[2019-02-26] MEDS: ATORVASTATIN 80 MG (LIPITOR) TABLET PO SCH (20:46)
[2019-02-26] MEDS: LIDOCAINE PATCH REMOVAL TP SCH (20:47)
[2019-02-27 05:04] VITALS: BP 112/63
[2019-02-27] MEDS: BETHANECHOL 25 MG (URECHOLINE) TAB PO SCH ×4 (06:20→20:25)
[2019-02-27] MEDS: FERROUS SULF 325 MG (IRON) TAB PO SCH (06:20)
[2019-02-27 08:58] VITALS: BP 106/66
[2019-02-27] MEDS: CLOPIDOGREL 75 MG (PLAVIX) TABLET PO SCH (09:00)
[2019-02-27] MEDS: SERTRALINE 100 MG (ZOLOFT) TAB PO SCH (09:00)
[2019-02-27] MEDS: BISOPROLOL 5 MG TAB (ZEBETA) PO SCH (09:00)
[2019-02-27] MEDS: ASPIRIN 81 MG CHEW (CHILDREN'S ASA) PO SCH (09:00)
[2019-02-27] MEDS: amLODIPine 5 MG (NORVASC) TAB PO SCH (09:00)
[2019-02-27] MEDS: LIDOCAINE 4% (SALONPAS) PATCH TOP SCH (09:01)
[2019-02-27] MEDS: SENNA W/DOCUSATE (SENOKOT S) TABLET PO SCH ×2 (09:01→20:25)
[2019-02-27] MEDS: DICLOFENAC 1% GEL 100 GM (VOLTAREN) TUBE TOP SCH ×2 (09:01→20:25)
[2019-02-27] MEDS: POLYETHYLENE GLYCOL 17 GM (MIRALAX) PACK PO SCH ×2 (09:01→20:25)
[2019-02-27] MEDS: EYE PO SCH ×2 (09:02→20:24)
[2019-02-27] MEDS: SIMBRINZA PO SCH ×2 (09:02→20:24)
[2019-02-27] MEDS: prednisoLONE 1% OPTH (PRED FORTE) 5 ML BTL OS SCH ×4 (09:03→20:24)
--- NOTE | 2019-02-27 11:38 | Physical Therapy Daily Note ---
PT Daily Note-Current Subjective Pt agreeable to PT session. State he would like to put his own socks and shoes on and wants to work on leg and arm Pain Numeric Pain Scale: 0-No Pain Appearance Pt in bed upon arrival, awake and alert At end of session, pt sitting up in recliner with call light, phone and bedside table within reach. all needs met at this time Mental Status Patient Orientation: Person, Place, Time Transfers Therapy Code Descriptions/Definitions Functional [place] Measure: 0=Not Assessed/NA 4=Minimal Assistance 1=Total Assistance 5=Supervision or Setup 2=Maximal Assistance 6=Modified [place] 3=Moderate Assistance 7=Complete [place] Therapy Quality Codes: 6 Independent with activity with or without an assistive device 5 Patient requires set up or clean up by helper. Patient completes activity by themselves 4 Supervision or touching assist (CGA). [place] provide cues , steadying assist 3 The helper provides less than half the effort to complete the activity 2 The helper provides more than half the effort to complete the activity 1 Dependent. The helper does all the effort to complete an activity 7 Patient refused to complete or attempt activity 9 The patient did not perform the activity before the current illness or injury 88 Not attempted due to Medical conditions or safety concerns Transfers (B, C, W/C) (FIM): 5 Scootin Rollin Supine to/from Sit: 5 Sit to/from Stand: 5 pt with slight unsteadiness x1 out of 9 sit to stand transfers throughout tx session, no LOB, able to self correct. Correct technique and hand placement during transitions, controls descent. Weight Bearing Right Lower Extremity: Right Full Weight Bearing Left Lower Extremity: Left Full Weight Bearing Gait Training Does the Patient Walk?: Yes Gait (FIM): 4 Distance (FIM): 3=150 ft Distance: 350, 100 Gait Level of Assist: 4 (CGA provided due to x2 slight unsteady episodes) Gait Persons Needed: 1 Gait Assistive Device: Cane Small Base Quad good sequence, staggers slightly and needs skilled cues for step length and foot clearance Neuromuscular standing balance/neuro re ed: in // bars x10 each ex, each LE: L and R toe taps onto 6" step fwd, retro and lateral. single leg stance on air ball, BLE stance on air ball with x10 wt shifts fwd/bkwd and x10 wt shifts L and R lateral Treatments bed mobility, sitting balance EOB while pt donned socks and shoes with slight LOB to the right, verb instruction given and pt able to correct, encouragement given to use RUE more to assist, min inst given for technique on donning shoes. Transfers, gait, safety, balance, neuromuscular re education, strengthening, functional mobility, activity tolerance Assessment Current Status: Good Progress PT Short Term Goals Short Term Goals Time Frame: Feb 04, 2019 Transfers (B,C,W/C) (FIM): 4 (met) Gait (FIM): 1 (met) Gait Distance Comment: 20' Gait Level of Assist: 3 Gait Assistive Device: Walker Henry Wheelchair Distance: 80' PT Usp Goals Usp Goals PT Usp Goals Time Frame: Feb 18, 2019 Transfers (B,C,W/C) (FIM): 4 (met) Sit to Lying (QC): 4 Lying-Sitting on Side/Bed(QC): 4 Sit to Stand (QC): 4 Rollin Roll Left to Right (QC): 4 Chair/Ukf-ue-Pyppp Xfer(QC): 4 Car Transfer (QC): 4 Gait (FIM): 2 Distance: 50' Walk 10 feet (QC): 3 Walk 10ft-Uneven Surface(QC): 3 Walk 50ft with 2 Turns (QC): 3 Gait Level of Assist: 4 Gait Assistive Device: Cane Large Base Quad Wheelchair (FIM): 6 Distance: 150' Wheelchair Level of Assist: 6 Wheel 50 feet with 2 turns (QC: 6 Stairs (FIM): 1 # of Steps: 1 1 Step (curb) (QC): 3 Stairs Level Of Assist: 4 PT Plan Treatment/Plan Treatment Plan: Continue Plan of Care Treatment Plan: Bed Mobility, Concurrent Therapy, Education, Functional Activity Gifty, Functional Strength, Group Therapy, Gait, Safety, Therapeutic Exercise, Transfers Treatment Duration: Feb 18, 2019 Frequency: At least 5 of 7 days/Wk (IRF) Estimated Hrs Per Day: 1.5 hours per day Patient and/or Family Agrees t: Yes Safety Risks/Education Patient Education: Gait Training, Transfer Techniques, Correct Positioning, Safety Issues Teaching Recipient: Patient Teaching Methods: Demonstration, Discussion Response to Teaching: Verbalize Understanding, Return Demonstration Time/GCodes Time In: 819 Time Out: 842 Total Billed Treatment Time: 23 Total Billed Treatment 1 visit, GT x1 unit, NM x1 unit CHENTE NAJERA PTA February 27, 2019 11:38
--- NOTE | 2019-02-27 11:38 | NUR ---
Dr. Jalloh in to see patient.
--- NOTE | 2019-02-27 12:00 | NUR ---
Patient off floor for day pass acc by spouse. Quad cane and gait belt sent with patient.
--- NOTE | 2019-02-27 12:36 | PM&R Progress Note ---
Subjective HPI/CC On Admission Date Seen by Provider: February 27, 2019 Time Seen by Provider: 11:00 CC: Ischemic stroke HPI: This is a 63-year-old white male of Dr. Schultz who presented to via [facility] ER on 01/23/19 with abrupt onset of severe weakness on the right side underwent stroke workup and found to be a candidate for TPA then shipped to [facility] and subsequently underwent left carotid endarterectomy on 01/25/19 but still remains with right sided weakness with severe expressive aphasia. Reviewed the entire record at [facility] and reviewed his home medications and patient appears to be ready to start aggressive physical therapy in order regain function. His drove him from and reports that he did well on the trip. His [id number] is a nurse and she helped reviewed the discharge med list. He is currently on. Diet with nectar thickened liquids. CT scan via [facility] and [facility] showed a left ischemic process of the MCA distribution. During hospital course the he had no significant clinical decompensation. Patient requires inpatient rehabilitation with 24 hour physician supervision to monitor her labile blood pressure and monitor for any hemorrhagic residual from ischemic stroke that cannot be provided in any type of lower level of care. 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 Subjective/Events-last exam Patient doing very well and continues to improve each day and going on a Day Pass today Walking a great deal with physical therapy and feels more confident Continues to have balance issues but much improved Eating and drinking well Bowels are moving Tolerating iron daily since changed from QOD by PCP Conferred with furnace operator therapy notes Patient denies any concerns Needs EGD and colonoscopy as outpatient per PCP Review of Systems General: Fatigue Neurological: Weakness, Numbness, Incoordination, Change in speech Objective Exam Vital Signs Vital Signs Date Time Temp Pulse Resp B/P (MAP) Pulse Ox O2 Delivery O2 Flow Rate FiO2 02/28/19 10:07 118/72 (87) 02/28/19 09:36 Room Air 02/28/19 08:10 62 02/28/19 05:06 97.0 18 98 Capillary Refill : General Appearance: No Apparent Distress, WD/WN, Chronically ill HEENT: PERRL/EOMI, Normal ENT Inspection, Pharynx Normal, Other (right facial droop) Neck: Full Range of Motion, Normal Inspection, Non Tender, Supple, Other ( incision left neck intact) Respiratory: Chest Non Tender, Lungs Clear, Normal Breath Sounds, No Accessory Muscle Use, No Respiratory Distress Cardiovascular: Regular Rate, Rhythm, No Edema, No Gallop, No JVD, No Murmur, Normal Peripheral Pulses Gastrointestinal: Normal Bowel Sounds, No Organomegaly, No Pulsatile Mass, Non Tender, Soft Back: Normal Inspection, No CVA Tenderness, No Vertebral Tenderness Extremity: Normal Capillary Refill, Normal Inspection, Non Tender, No Calf Tenderness, No Pedal Edema, Other (limited ROM right side and mild deficit left) Neurologic/Psychiatric: Alert, Normal Mood/Affect, Abnormal mobile crane operator II-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 FIM Transfers Therapy Code Descriptions/Definitions Functional [place] Measure: 0=Not Assessed/NA 4=Minimal Assistance 1=Total Assistance 5=Supervision or Setup 2=Maximal Assistance 6=Modified [place] 3=Moderate Assistance 7=Complete [place] Therapy Quality Codes: 6 Independent with activity with or without an assistive device 5 Patient requires set up or clean up by helper. Patient completes activity by themselves 4 Supervision or touching assist (CGA). [place] provide cues , steadying assist 3 The helper provides less than half the effort to complete the activity 2 The helper provides more than half the effort to complete the activity 1 Dependent. The helper does all the effort to complete an activity 7 Patient refused to complete or attempt activity 9 The patient did not perform the activity before the current illness or injury 88 Not attempted due to Medical conditions or safety concerns Mental Status/Objective Comprehension: 6 Expression: 1 Social Interaction: 5 Problem Solvin Memory: 5 ADL-Treatment Feedin Eating (QC): 5 Groomin Oral Hygiene (QC): 6 Bathin (CGA for one LOB during standing in shower.) Bathing Location: L Arm, R Arm, L Upper Leg, R Upper Leg, L Lower Leg ( including foot), R Lower Leg (including foot), Chest, Abdomen, Buttocks, Perineal Area Shower/Bathe Self (QC): 4 Upper Extremity Dressin (Cues to turn shirt around correctly.) Upper Body Dressing (QC): 4 Lower Extremity Dressin (Cues to pull up pants on right side. Pt. pulled pants up, but was not aware that they were fully not up on right side. Pt. is able to don shoes with using dycem mat on knee to position foot better.) Lower Body Dressing (QC): 4 On/Off Footwear (QC): 4 Toiletin (SBA for toileting.) Toileting Hygiene (QC): 4 Toilet/Commode Transfer: 5 Toilet Transfer (QC): 4 Shower: 4 Assessment/Plan Assessment and Plan Assess & Plan/Chief Complaint Assessment: (1) Ischemic stroke 01/23/19 (2) S/P carotid endarterectomy 01/25/19 with no improvement in right sided weakness while at [facility] (3) PVD (peripheral vascular disease) (4) CAD (coronary artery disease) (5) Expressive aphasia- improved 02/02/19 (6) Right sided weakness- improved (7) Anemia-iron def so starting iron 02/03/19 and changed from every other day to every day (8) Hypertension (9) S/P cataract extraction (10) Dysphagia (11) Hyperlipidemia (12) Constipation-resolved after meds (13) Klinefelter syndrome (14) Received intravenous tissue plasminogen activator (tPA) in emergency department 01/23/19 at [facility] ER (15) Depression (16) Former smoker (17) Hyponatremia improved on salt tablets and in process of weaning off (18) DVT prophylaxis (19) Urinary retention-consulted Urology, appreciate recs (20) Lee catheter was in place now DC but back with urinary retention s/p cysto so placed on Urecholine with Flomax and DC Lee and that is working well and voiding normally (21) Occult blood in stool we'll obtain endoscopy as an outpatient per primary care provider Plan: Patient doing extremely well and will rest from therapy today and start another week of intensive therapy prior to DC home Participating in all therapies as required Attempting to get back to prior level of functioning Speech working with expressive aphasia DC salt tablets now Blood pressure well controlled on Norvasc 5 MG Checked labs for regular monitoring and checked sodium level since weaning salt tablets and all results normal Hemoccult stools + and Dr Schultz has been notified and he informed me that he will perform endoscopy as an outpatient Day Pass today DC Friday (1) Ischemic stroke (2) Anemia Assessment & Plan: Start iron therapy (3) Expressive aphasia (4) CAD (coronary artery disease) (5) Dysphagia (6) Hyperlipidemia (7) PVD (peripheral vascular disease) (8) Hypertension (9) Right sided weakness (10) Klinefelter syndrome (11) Constipation (12) Depression (13) Hyponatremia (14) DVT prophylaxis (15) Received intravenous tissue plasminogen activator (tPA) in emergency department (16) Urinary retention Assessment & Plan: Resolved (17) Lee catheter in place Assessment & Plan: Resolved (18) S/P carotid endarterectomy (19) S/P cataract extraction (20) Former smoker (21) Occult blood positive stool BOOGIE WHITTEN DO February 27, 2019 12:36
[2019-02-27] MEDS: TAMSULOSIN 0.4 MG (FLOMAX) CAP PO SCH (17:44)
[2019-02-27 17:45] VITALS: BP 126/67
--- NOTE | 2019-02-27 17:49 | NUR ---
Back to floor. Had a good time. Have one recliner that was hard to get out of. Other than that, no complaints. VSS. See intervention for details.
[2019-02-27] MEDS: ATORVASTATIN 80 MG (LIPITOR) TABLET PO SCH (20:25)
[2019-02-27] MEDS: LIDOCAINE PATCH REMOVAL TP SCH (20:26)
[2019-02-28 05:06] VITALS: BP 118/72
[2019-02-28] MEDS: FERROUS SULF 325 MG (IRON) TAB PO SCH (06:18)
[2019-02-28] MEDS: BETHANECHOL 25 MG (URECHOLINE) TAB PO SCH ×4 (06:19→20:02)
[2019-02-28] MEDS: ASPIRIN 81 MG CHEW (CHILDREN'S ASA) PO SCH (08:05)
[2019-02-28] MEDS: SERTRALINE 100 MG (ZOLOFT) TAB PO SCH (08:05)
[2019-02-28] MEDS: SENNA W/DOCUSATE (SENOKOT S) TABLET PO SCH ×2 (08:06→20:02)
[2019-02-28] MEDS: CLOPIDOGREL 75 MG (PLAVIX) TABLET PO SCH (08:06)
[2019-02-28] MEDS: POLYETHYLENE GLYCOL 17 GM (MIRALAX) PACK PO SCH ×2 (08:06→19:25)
[2019-02-28] MEDS: DICLOFENAC 1% GEL 100 GM (VOLTAREN) TUBE TOP SCH ×2 (08:06→19:34)
[2019-02-28] MEDS: LIDOCAINE 4% (SALONPAS) PATCH TOP SCH (08:06)
[2019-02-28] MEDS: prednisoLONE 1% OPTH (PRED FORTE) 5 ML BTL OS SCH ×4 (08:07→20:02)
[2019-02-28] MEDS: SIMBRINZA PO SCH ×2 (08:09→19:25)
[2019-02-28] MEDS: EYE PO SCH ×2 (08:09→19:25)
[2019-02-28 08:10] VITALS: BP 99/63
[2019-02-28] MEDS: BISOPROLOL 5 MG TAB (ZEBETA) PO SCH (10:05)
[2019-02-28] MEDS: amLODIPine 5 MG (NORVASC) TAB PO SCH (10:05)
[2019-02-28 10:07] VITALS: BP 118/72
--- NOTE | 2019-02-28 11:21 | NUR ---
Out of Simbrinza eye drops. states, "don't worry about it" since patient is going home tomorrow. She will resume giving them to patient when he gets home.
--- NOTE | 2019-02-28 12:49 | PM&R Progress Note ---
Subjective HPI/CC On Admission Date Seen by Provider: February 28, 2019 Time Seen by Provider: 12:30 CC: Ischemic stroke HPI: This is a 63-year-old white male of Dr. Schultz who presented to via [facility] ER on 01/23/19 with abrupt onset of severe weakness on the right side underwent stroke workup and found to be a candidate for TPA then shipped to [facility] and subsequently underwent left carotid endarterectomy on 01/25/19 but still remains with right sided weakness with severe expressive aphasia. Reviewed the entire record at [facility] and reviewed his home medications and patient appears to be ready to start aggressive physical therapy in order regain function. His drove him from and reports that he did well on the trip. His [id number] is a nurse and she helped reviewed the discharge med list. He is currently on. Diet with nectar thickened liquids. CT scan via [facility] and [facility] showed a left ischemic process of the MCA distribution. During hospital course the he had no significant clinical decompensation. Patient requires inpatient rehabilitation with 24 hour physician supervision to monitor her labile blood pressure and monitor for any hemorrhagic residual from ischemic stroke that cannot be provided in any type of lower level of care. 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 Subjective/Events-last exam Patient doing very well had a great Day Pass yesterday. Only issue was difficulty getting out of recliner Walking a great deal and balance issues are improved Eating and drinking well Bowels are moving Tolerating iron daily since changed from QOD by PCP Conferred with deputy editor in chief therapy notes Patient denies any concerns Needs EGD and colonoscopy as outpatient per PCP DC tomorrow Review of Systems Neurological: Weakness, Numbness, Incoordination Objective Exam Vital Signs Vital Signs Date Time Temp Pulse Resp B/P (MAP) Pulse Ox O2 Delivery O2 Flow Rate FiO2 02/28/19 10:07 118/72 (87) 02/28/19 09:36 Room Air 02/28/19 08:10 62 02/28/19 05:06 97.0 18 98 Capillary Refill : General Appearance: No Apparent Distress, WD/WN, Chronically ill HEENT: PERRL/EOMI, Normal ENT Inspection, Pharynx Normal, Other (right facial droop) Neck: Full Range of Motion, Normal Inspection, Non Tender, Supple, Other ( incision left neck intact) Respiratory: Chest Non Tender, Lungs Clear, Normal Breath Sounds, No Accessory Muscle Use, No Respiratory Distress Cardiovascular: Regular Rate, Rhythm, No Edema, No Gallop, No JVD, No Murmur, Normal Peripheral Pulses Gastrointestinal: Normal Bowel Sounds, No Organomegaly, No Pulsatile Mass, Non Tender, Soft Back: Normal Inspection, No CVA Tenderness, No Vertebral Tenderness Extremity: Normal Capillary Refill, Normal Inspection, Non Tender, No Calf Tenderness, No Pedal Edema, Other (limited ROM right side and mild deficit left) Neurologic/Psychiatric: Alert, Normal Mood/Affect, 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 FIM Transfers Therapy Code Descriptions/Definitions Functional [place] Measure: 0=Not Assessed/NA 4=Minimal Assistance 1=Total Assistance 5=Supervision or Setup 2=Maximal Assistance 6=Modified [place] 3=Moderate Assistance 7=Complete [place] Therapy Quality Codes: 6 Independent with activity with or without an assistive device 5 Patient requires set up or clean up by helper. Patient completes activity by themselves 4 Supervision or touching assist (CGA). [place] provide cues , steadying assist 3 The helper provides less than half the effort to complete the activity 2 The helper provides more than half the effort to complete the activity 1 Dependent. The helper does all the effort to complete an activity 7 Patient refused to complete or attempt activity 9 The patient did not perform the activity before the current illness or injury 88 Not attempted due to Medical conditions or safety concerns Mental Status/Objective Comprehension: 6 Expression: 1 Social Interaction: 5 Problem Solvin Memory: 5 ADL-Treatment Feedin Eating (QC): 5 Groomin Oral Hygiene (QC): 6 Bathin (CGA for one LOB during standing in shower.) Bathing Location: L Arm, R Arm, L Upper Leg, R Upper Leg, L Lower Leg ( including foot), R Lower Leg (including foot), Chest, Abdomen, Buttocks, Perineal Area Shower/Bathe Self (QC): 4 Upper Extremity Dressin (Cues to turn shirt around correctly.) Upper Body Dressing (QC): 4 Lower Extremity Dressin (Cues to pull up pants on right side. Pt. pulled pants up, but was not aware that they were fully not up on right side. Pt. is able to don shoes with using dycem mat on knee to position foot better.) Lower Body Dressing (QC): 4 On/Off Footwear (QC): 4 Toiletin (SBA for toileting.) Toileting Hygiene (QC): 4 Toilet/Commode Transfer: 5 Toilet Transfer (QC): 4 Shower: 4 Assessment/Plan Assessment and Plan Assess & Plan/Chief Complaint Assessment: (1) Ischemic stroke 01/23/19 (2) S/P carotid endarterectomy 01/25/19 with no improvement in right sided weakness while at [facility] (3) PVD (peripheral vascular disease) (4) CAD (coronary artery disease) (5) Expressive aphasia- improved 02/02/19 (6) Right sided weakness- improved (7) Anemia-iron def so starting iron 02/03/19 and changed from every other day to every day (8) Hypertension (9) S/P cataract extraction (10) Dysphagia (11) Hyperlipidemia (12) Constipation-resolved after meds (13) Klinefelter syndrome (14) Received intravenous tissue plasminogen activator (tPA) in emergency department 01/23/19 at [facility] ER (15) Depression (16) Former smoker (17) Hyponatremia improved on salt tablets and in process of weaning off (18) DVT prophylaxis (19) Urinary retention-consulted Urology, appreciate recs (20) Lee catheter was in place now DC but back with urinary retention s/p cysto so placed on Urecholine with Flomax and DC Lee and that is working well and voiding normally (21) Occult blood in stool we'll obtain endoscopy as an outpatient per primary care provider Plan: Patient doing extremely well and will rest from therapy today and start another week of intensive therapy prior to DC home Participating in all therapies as required Attempting to get back to prior level of functioning Speech working with expressive aphasia DC salt tablets now Blood pressure well controlled on Norvasc 5 MG Checked labs for regular monitoring and checked sodium level since weaning salt tablets and all results normal Hemoccult stools + and Dr Schultz has been notified and he informed me that he will perform endoscopy as an outpatient Day Pass was successful yesterday DC tomorrow Check labs in am (1) Ischemic stroke (2) Anemia Assessment & Plan: Start iron therapy (3) Expressive aphasia (4) CAD (coronary artery disease) (5) Dysphagia (6) Hyperlipidemia (7) PVD (peripheral vascular disease) (8) Hypertension (9) Right sided weakness (10) Klinefelter syndrome (11) Constipation (12) Depression (13) Hyponatremia (14) DVT prophylaxis (15) Received intravenous tissue plasminogen activator (tPA) in emergency department (16) Urinary retention Assessment & Plan: Resolved (17) Lee catheter in place Assessment & Plan: Resolved (18) S/P carotid endarterectomy (19) S/P cataract extraction (20) Former smoker (21) Occult blood positive stool BOOGIE WHITTEN DO February 28, 2019 12:49
[2019-02-28] MEDS ORDERED: CLOP75TA28 PO (14:34)
[2019-02-28] MEDS ORDERED: AMLO5TAB9 PO (14:34)
[2019-02-28] MEDS ORDERED: ASPI-999 PO (14:34)
[2019-02-28] MEDS ORDERED: BETH50TA9 PO (14:34)
[2019-02-28] MEDS ORDERED: FERR325T18 PO (14:34)
[2019-02-28] MEDS ORDERED: SERT100T8 PO (14:34)
[2019-02-28] MEDS ORDERED: BISO5TAB PO (14:34)
[2019-02-28] MEDS ORDERED: TAMS0.4C98 PO (14:34)
[2019-02-28] MEDS ORDERED: ATOR80TA76 PO (14:34)
--- NOTE | 2019-02-28 14:36 | D/C HH Face to Face Order ---
D/C Face to Face Orders Instructions for Patient Via [facility], Patient Instructions/FollowUp: Dr Schultz in 1 week Physician to follow Patient: Dr Patrick Schultz Discharge Diet for Home: Cardiac Diet Patient Problems: CVA Urinary retention s/p left CEA HTN HLP Goals for Patient: Retunr to independent ADL's and ambulate without falls Patient Data-Allergies,Ht & Wt Patient Allergies: Coded Allergies: Penicillins (Unverified Allergy, Unknown, 01/23/19) Height (Feet): 5 Height (Inches): 9.00 Weight (Pounds): 177 Weight (Ounces): 8.0 Home Health Need/Face to Face Date of Face to Face: February 28, 2019 Clinical Findings: Generalized weakness and fatigue, Instability, Muscle weakness, Unsteady gait I have seen Pt [id number]: Yes Discharged To: Home Diagnosis/Conditions: CVA Urinary retention s/p left CEA HTN HLP Patient is Homebound due to: CognItive deficits, Ann-Marie fall risk due to instabilty, Muscle weakness Homebound Status Due to the above stated illness, injury or surgical procedure (medical condition or diagnosis) and associated clinical findings, the patient is homebound because of his/her inability to leave home except with aid of a supportive device and/or person AND leaving the home requires a considerable and taxing effort or is medically contraindicated. Pt req the following assistanc: [facility] Nursing Orders Home Health Services Order: Nursing Services, Cloth Layer-Evaluate & Treat, Physical Therapy-Evaluate & Treat, Speech Language-Evaluate & Treat, Other (bath aide) Certify Stmt I certify that this patient is under my care and that I, a nurse practitioner or a physician; a assistant counsel working with me, had a face to face encounter that - meets the physician face to face encounter requirements with this patient as dated. BOOGIE WHITTEN DO February 28, 2019 14:36
[2019-02-28 17:05] VITALS: BP 132/57
[2019-02-28] MEDS: TAMSULOSIN 0.4 MG (FLOMAX) CAP PO SCH (17:06)
[2019-02-28] MEDS: LIDOCAINE PATCH REMOVAL TP SCH (19:34)
[2019-02-28] MEDS: ATORVASTATIN 80 MG (LIPITOR) TABLET PO SCH (20:02)
[2019-03-01 05:19] VITALS: BP 120/65
[2019-03-01] MEDS: FERROUS SULF 325 MG (IRON) TAB PO SCH (06:15)
[2019-03-01] MEDS: BETHANECHOL 25 MG (URECHOLINE) TAB PO SCH ×3 (06:15→16:01)
[2019-03-01 07:09] LABS: BASOPHILS % (AUTO) 1 % (0-10); EOSINOPHILS # (AUTO) 0.2 10^3/uL (0.0-0.3); EOSINOPHILS % (AUTO) 3 % (0-10); HEMATOCRIT 33 % (40-54); HEMOGLOBIN 10.5 G/DL (13.3-17.7); LYMPHOCYTES # (AUTO) 1.6 X 10^3 (1.0-4.0); LYMPHOCYTES % (AUTO) 23 % (12-44); MEAN CORPUSCULAR HEMOGLOBIN 29 PG (25-34); MEAN CORPUSCULAR HGB CONC 32 G/DL (32-36); MEAN CORPUSCULAR VOLUME 89 FL (80-99); MONOCYTES # (AUTO) 0.7 X 10^3 (0.0-1.0); MONOCYTES % (AUTO) 10 % (0-12); NEUTROPHILS # (AUTO) 4.3 X 10^3 (1.8-7.8); NEUTROPHILS % (AUTO) 64 % (42-75); PLATELET COUNT 249 10^3/uL (130-400); RED CELL DISTRIBUTION WIDTH 13.8 % (10.0-14.5); WHITE BLOOD COUNT 6.8 10^3/uL (4.3-11.0)
[2019-03-01 07:26] LABS: ALANINE AMINOTRANSFERASE 39 U/L (0-55); ALBUMIN 3.5 GM/DL (3.2-4.5); ALKALINE PHOSPHATASE 83 U/L (40-136); BILIRUBIN,TOTAL 0.3 MG/DL (0.1-1.0); BUN/CREATININE RATIO 14; CALCIUM 9.6 MG/DL (8.5-10.1); CARBON DIOXIDE 25 MMOL/L (21-32); CHLORIDE 109 MMOL/L (98-107); CREATININE SERUM 0.78 MG/DL (0.60-1.30); GFR ESTIMATED > 60; GLUCOSE 89 MG/DL (70-105); POTASSIUM 3.7 MMOL/L (3.6-5.0); SODIUM 142 MMOL/L (135-145); TOTAL PROTEIN 6.3 GM/DL (6.4-8.2)
--- NOTE | 2019-03-01 08:07 | Discharge Summary ---
Diagnosis/Chief Complaint Date of Admission Jan 27, 2019 at 16:40 Date of Discharge Discharge Date: March 01, 2019 Discharge Diagnosis Assessment: (1) Ischemic stroke 01/23/19 (2) S/P carotid endarterectomy 01/25/19 with no improvement in right sided weakness while at [facility] (3) PVD (peripheral vascular disease) (4) CAD (coronary artery disease) (5) Expressive aphasia- improved 02/02/19 (6) Right sided weakness- improved (7) Anemia-iron def so starting iron 02/03/19 and changed from every other day to every day (8) Hypertension (9) S/P cataract extraction (10) Dysphagia (11) Hyperlipidemia (12) Constipation-resolved after meds (13) Klinefelter syndrome (14) Received intravenous tissue plasminogen activator (tPA) in emergency department 01/23/19 at [facility] ER (15) Depression (16) Former smoker (17) Hyponatremia improved on salt tablets and in process of weaning off (18) DVT prophylaxis (19) Urinary retention-consulted Urology, appreciate recs (20) Lee catheter was in place now DC but back with urinary retention s/p cysto so placed on Urecholine with Flomax and DC Lee and that is working well and voiding normally (21) Occult blood in stool we'll obtain endoscopy as an outpatient per primary care provider Plan: Patient doing extremely well and will rest from therapy today and start another week of intensive therapy prior to DC home Participating in all therapies as required Attempting to get back to prior level of functioning Speech working with expressive aphasia DC salt tablets now Blood pressure well controlled on Norvasc 5 MG Checked labs for regular monitoring and checked sodium level since weaning salt tablets and all results normal Hemoccult stools + and Dr Schultz has been notified and he informed me that he will perform endoscopy as an outpatient Day Pass was successful yesterday DC tomorrow Check labs in am Discharge Summary Discharge Physical Examination Allergies: Coded Allergies: Penicillins (Unverified Allergy, Unknown, 01/23/19) Vitals & I&Os Vital Signs Date Time Temp Pulse Resp B/P (MAP) Pulse Ox O2 Delivery O2 Flow Rate FiO2 03/01/19 20:05 57 18 134/78 98 Room Air 03/01/19 05:19 98.0 Hospital Course Was the Problem List Reviewed?: Yes Hospital Course: Pt had a lengthy inpatient rehab hospital course for a total of 34 days after transfer from [facility] after sustaining a catastrophic stroke and left carotid endarterectomy. He participated in all therapies and did extremely well. Expressive aphasia was managed with speech therapy and overall had much improved status there. Blood pressure remains stable with the addition of medications. 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 Hemoccult positive stools were updated to Dr. Carmen his PCP. He will have an EGD and colonoscopy as an out patient. He did receive iron supplementation and will continue that on a daily basis at home. Overall her was deemed stable for DC and had much improved status returning back home to continue therapies with home health and although his prior level of functioning was independent without assistive devices he was able to walk with a quad cane and continues to have issues with balance and that will be worked on with PT and his was pleased with his progress. Labs (last 24 hrs) Laboratory Tests 01/28/19 06:05: White Blood Count 9.7, Red Blood Count 3.49L, Hemoglobin 10.6#L, Hematocrit 32L , Mean Corpuscular Volume 91, Mean Corpuscular Hemoglobin 30, Mean Corpuscular Hemoglobin Concent 33, Red Cell Distribution Width 14.0, Platelet Count 297, Mean Platelet Volume 9.2, Neutrophils (%) (Auto) 70, Lymphocytes (%) (Auto) 14, Monocytes (%) (Auto) 12, Eosinophils (%) (Auto) 4, Basophils (%) (Auto) 1, Neutrophils # (Auto) 6.7, Lymphocytes # (Auto) 1.4, Monocytes # (Auto) 1.1H, Eosinophils # (Auto) 0.4H, Basophils # (Auto) 0.1, Sodium Level 135, Potassium Level 4.2, Chloride Level 103, Carbon Dioxide Level 23, Anion Gap 9, Blood Urea Nitrogen 14, Creatinine 0.71, Estimat Glomerular Filtration Rate > 60, BUN/ Creatinine Ratio 20, Glucose Level 106H, Calcium Level 9.5, Corrected Calcium 9.8, Iron Level 20L, Total Iron Binding Capacity 242L, Unsaturated Iron Binding Capacity 222, Transferrin % Saturation 8L, Ferritin 196.4, Total Bilirubin 0.6, Aspartate Amino Transf (AST/SGOT) 23, Alanine Aminotransferase (ALT/SGPT) 18, Alkaline Phosphatase 67, Total Protein 6.6, Albumin 3.6 02/03/19 04:40: White Blood Count 7.4, Red Blood Count 3.32L, Hemoglobin 10.1L, Hematocrit 30L, Mean Corpuscular Volume 89, Mean Corpuscular Hemoglobin 30, Mean Corpuscular Hemoglobin Concent 34, Red Cell Distribution Width 13.8, Platelet Count 412H, Mean Platelet Volume 9.0, Neutrophils (%) (Auto) 64, Lymphocytes (%) (Auto) 20, Monocytes (%) (Auto) 12, Eosinophils (%) (Auto) 3, Basophils (%) (Auto) 1, Neutrophils # (Auto) 4.7, Lymphocytes # (Auto) 1.5, Monocytes # (Auto) 0.9, Eosinophils # (Auto) 0.2, Basophils # (Auto) 0.1, Sodium Level 137, Potassium Level 3.9, Chloride Level 108H, Carbon Dioxide Level 22, Anion Gap 7, Blood Urea Nitrogen 17, Creatinine 0.75, Estimat Glomerular Filtration Rate > 60, BUN/ Creatinine Ratio 23, Glucose Level 103, Calcium Level 9.5, Corrected Calcium 9.9 , Total Bilirubin 0.5, Aspartate Amino Transf (AST/SGOT) 32, Alanine Aminotransferase (ALT/SGPT) 47, Alkaline Phosphatase 93, Total Protein 6.5, Albumin 3.5 02/16/19 04:40: White Blood Count 6.9, Red Blood Count 3.61L, Hemoglobin 10.5L, Hematocrit 32L, Mean Corpuscular Volume 90, Mean Corpuscular Hemoglobin 29, Mean Corpuscular Hemoglobin Concent 33, Red Cell Distribution Width 13.8, Platelet Count 336, Mean Platelet Volume 9.5, Neutrophils (%) (Auto) 67, Lymphocytes (%) (Auto) 19, Monocytes (%) (Auto) 10, Eosinophils (%) (Auto) 3, Basophils (%) (Auto) 1, Neutrophils # (Auto) 4.6, Lymphocytes # (Auto) 1.3, Monocytes # (Auto) 0.7, Eosinophils # (Auto) 0.2, Basophils # (Auto) 0.1, Sodium Level 144, Potassium Level 4.2, Chloride Level 109H, Carbon Dioxide Level 27, Anion Gap 8, Blood Urea Nitrogen 12, Creatinine 0.81, Estimat Glomerular Filtration Rate > 60, BUN/ Creatinine Ratio 15, Glucose Level 102, Calcium Level 9.8, Corrected Calcium 10.1, Total Bilirubin 0.3, Aspartate Amino Transf (AST/SGOT) 20, Alanine Aminotransferase (ALT/SGPT) 36, Alkaline Phosphatase 87, Total Protein 6.8, Albumin 3.6 02/22/19 04:20: White Blood Count 7.1, Red Blood Count 3.53L, Hemoglobin 10.3L, Hematocrit 31L, Mean Corpuscular Volume 89, Mean Corpuscular Hemoglobin 29, Mean Corpuscular Hemoglobin Concent 33, Red Cell Distribution Width 13.8, Platelet Count 247, Mean Platelet Volume 10.1, Neutrophils (%) (Auto) 66, Lymphocytes (%) (Auto) 22 , Monocytes (%) (Auto) 8, Eosinophils (%) (Auto) 3, Basophils (%) (Auto) 1, Neutrophils # (Auto) 4.7, Lymphocytes # (Auto) 1.6, Monocytes # (Auto) 0.6, Eosinophils # (Auto) 0.2, Basophils # (Auto) 0.0, Sodium Level 140, Potassium Level 3.8, Chloride Level 109H, Carbon Dioxide Level 21, Anion Gap 10, Blood Urea Nitrogen 14, Creatinine 0.75, Estimat Glomerular Filtration Rate > 60, BUN/ Creatinine Ratio 19, Glucose Level 103, Calcium Level 9.4, Corrected Calcium 9.8 , Total Bilirubin 0.3, Aspartate Amino Transf (AST/SGOT) 25, Alanine Aminotransferase (ALT/SGPT) 41, Alkaline Phosphatase 88, Total Protein 6.4, Albumin 3.5 02/23/19 08:20: Stool Occult Blood Immunoassay POSITIVEH 03/01/19 05:20: White Blood Count 6.8, Red Blood Count 3.67L, Hemoglobin 10.5L, Hematocrit 33L, Mean Corpuscular Volume 89, Mean Corpuscular Hemoglobin 29, Mean Corpuscular Hemoglobin Concent 32, Red Cell Distribution Width 13.8, Platelet Count 249, Mean Platelet Volume 10.0, Neutrophils (%) (Auto) 64, Lymphocytes (%) (Auto) 23 , Monocytes (%) (Auto) 10, Eosinophils (%) (Auto) 3, Basophils (%) (Auto) 1, Neutrophils # (Auto) 4.3, Lymphocytes # (Auto) 1.6, Monocytes # (Auto) 0.7, Eosinophils # (Auto) 0.2, Basophils # (Auto) 0.0, Sodium Level 142, Potassium Level 3.7, Chloride Level 109H, Carbon Dioxide Level 25, Anion Gap 8, Blood Urea Nitrogen 11, Creatinine 0.78, Estimat Glomerular Filtration Rate > 60, BUN/ Creatinine Ratio 14, Glucose Level 89, Calcium Level 9.6, Corrected Calcium 10.0 , Total Bilirubin 0.3, Aspartate Amino Transf (AST/SGOT) 21, Alanine Aminotransferase (ALT/SGPT) 39, Alkaline Phosphatase 83, Total Protein 6.3L, Albumin 3.5 Microbiology 02/02/19 MRSA Screen - Final, Complete MRSA not isolated Pending Labs Microbiology Date/Time Source Procedure Growth Status 02/02/19 11:45 Nasal MRSA Screen - Final MRSA not isolated Complete Laboratory Tests 01/28/19 06:05: White Blood Count 9.7, Red Blood Count 3.49, Hemoglobin 10.6, Hematocrit 32, Mean Corpuscular Volume 91, Mean Corpuscular Hemoglobin 30, Mean Corpuscular Hemoglobin Concent 33, Red Cell Distribution Width 14.0, Platelet Count 297, Mean Platelet Volume 9.2, Neutrophils (%) (Auto) 70, Lymphocytes (%) (Auto) 14, Monocytes (%) (Auto) 12, Eosinophils (%) (Auto) 4, Basophils (%) (Auto) 1, Neutrophils # (Auto) 6.7, Lymphocytes # (Auto) 1.4, Monocytes # (Auto) 1.1, Eosinophils # (Auto) 0.4, Basophils # (Auto) 0.1, Sodium Level 135, Potassium Level 4.2, Chloride Level 103, Carbon Dioxide Level 23, Anion Gap 9, Blood Urea Nitrogen 14, Creatinine 0.71, Estimat Glomerular Filtration Rate > 60, BUN/ Creatinine Ratio 20, Glucose Level 106, Calcium Level 9.5, Corrected Calcium 9.8 , Iron Level 20, Total Iron Binding Capacity 242, Unsaturated Iron Binding Capacity 222, Transferrin % Saturation 8, Ferritin 196.4, Total Bilirubin 0.6, Aspartate Amino Transf (AST/SGOT) 23, Alanine Aminotransferase (ALT/SGPT) 18, Alkaline Phosphatase 67, Total Protein 6.6, Albumin 3.6 02/03/19 04:40: White Blood Count 7.4, Red Blood Count 3.32, Hemoglobin 10.1, Hematocrit 30, Mean Corpuscular Volume 89, Mean Corpuscular Hemoglobin 30, Mean Corpuscular Hemoglobin Concent 34, Red Cell Distribution Width 13.8, Platelet Count 412, Mean Platelet Volume 9.0, Neutrophils (%) (Auto) 64, Lymphocytes (%) (Auto) 20, Monocytes (%) (Auto) 12, Eosinophils (%) (Auto) 3, Basophils (%) (Auto) 1, Neutrophils # (Auto) 4.7, Lymphocytes # (Auto) 1.5, Monocytes # (Auto) 0.9, Eosinophils # (Auto) 0.2, Basophils # (Auto) 0.1, Sodium Level 137, Potassium Level 3.9, Chloride Level 108, Carbon Dioxide Level 22, Anion Gap 7, Blood Urea Nitrogen 17, Creatinine 0.75, Estimat Glomerular Filtration Rate > 60, BUN/ Creatinine Ratio 23, Glucose Level 103, Calcium Level 9.5, Corrected Calcium 9.9 , Total Bilirubin 0.5, Aspartate Amino Transf (AST/SGOT) 32, Alanine Aminotransferase (ALT/SGPT) 47, Alkaline Phosphatase 93, Total Protein 6.5, Albumin 3.5 02/16/19 04:40: White Blood Count 6.9, Red Blood Count 3.61, Hemoglobin 10.5, Hematocrit 32, Mean Corpuscular Volume 90, Mean Corpuscular Hemoglobin 29, Mean Corpuscular Hemoglobin Concent 33, Red Cell Distribution Width 13.8, Platelet Count 336, Mean Platelet Volume 9.5, Neutrophils (%) (Auto) 67, Lymphocytes (%) (Auto) 19, Monocytes (%) (Auto) 10, Eosinophils (%) (Auto) 3, Basophils (%) (Auto) 1, Neutrophils # (Auto) 4.6, Lymphocytes # (Auto) 1.3, Monocytes # (Auto) 0.7, Eosinophils # (Auto) 0.2, Basophils # (Auto) 0.1, Sodium Level 144, Potassium Level 4.2, Chloride Level 109, Carbon Dioxide Level 27, Anion Gap 8, Blood Urea Nitrogen 12, Creatinine 0.81, Estimat Glomerular Filtration Rate > 60, BUN/ Creatinine Ratio 15, Glucose Level 102, Calcium Level 9.8, Corrected Calcium 10.1, Total Bilirubin 0.3, Aspartate Amino Transf (AST/SGOT) 20, Alanine Aminotransferase (ALT/SGPT) 36, Alkaline Phosphatase 87, Total Protein 6.8, Albumin 3.6 02/22/19 04:20: White Blood Count 7.1, Red Blood Count 3.53, Hemoglobin 10.3, Hematocrit 31, Mean Corpuscular Volume 89, Mean Corpuscular Hemoglobin 29, Mean Corpuscular Hemoglobin Concent 33, Red Cell Distribution Width 13.8, Platelet Count 247, Mean Platelet Volume 10.1, Neutrophils (%) (Auto) 66, Lymphocytes (%) (Auto) 22 , Monocytes (%) (Auto) 8, Eosinophils (%) (Auto) 3, Basophils (%) (Auto) 1, Neutrophils # (Auto) 4.7, Lymphocytes # (Auto) 1.6, Monocytes # (Auto) 0.6, Eosinophils # (Auto) 0.2, Basophils # (Auto) 0.0, Sodium Level 140, Potassium Level 3.8, Chloride Level 109, Carbon Dioxide Level 21, Anion Gap 10, Blood Urea Nitrogen 14, Creatinine 0.75, Estimat Glomerular Filtration Rate > 60, BUN/ Creatinine Ratio 19, Glucose Level 103, Calcium Level 9.4, Corrected Calcium 9.8 , Total Bilirubin 0.3, Aspartate Amino Transf (AST/SGOT) 25, Alanine Aminotransferase (ALT/SGPT) 41, Alkaline Phosphatase 88, Total Protein 6.4, Albumin 3.5 02/23/19 08:20: Stool Occult Blood Immunoassay POSITIVE 03/01/19 05:20: White Blood Count 6.8, Red Blood Count 3.67, Hemoglobin 10.5, Hematocrit 33, Mean Corpuscular Volume 89, Mean Corpuscular Hemoglobin 29, Mean Corpuscular Hemoglobin Concent 32, Red Cell Distribution Width 13.8, Platelet Count 249, Mean Platelet Volume 10.0, Neutrophils (%) (Auto) 64, Lymphocytes (%) (Auto) 23 , Monocytes (%) (Auto) 10, Eosinophils (%) (Auto) 3, Basophils (%) (Auto) 1, Neutrophils # (Auto) 4.3, Lymphocytes # (Auto) 1.6, Monocytes # (Auto) 0.7, Eosinophils # (Auto) 0.2, Basophils # (Auto) 0.0, Sodium Level 142, Potassium Level 3.7, Chloride Level 109, Carbon Dioxide Level 25, Anion Gap 8, Blood Urea Nitrogen 11, Creatinine 0.78, Estimat Glomerular Filtration Rate > 60, BUN/ Creatinine Ratio 14, Glucose Level 89, Calcium Level 9.6, Corrected Calcium 10.0 , Total Bilirubin 0.3, Aspartate Amino Transf (AST/SGOT) 21, Alanine Aminotransferase (ALT/SGPT) 39, Alkaline Phosphatase 83, Total Protein 6.3, Albumin 3.5 Discharge Home Medications: Active Scripts Active Urecholine (Bethanechol Chloride) 50 Mg Tablet 50 Mg PO ACHS Sertraline HCl 100 Mg Tablet 100 Mg PO DAILY Aspirin 81 Mg Tab.chew 81 Mg PO DAILY Amlodipine Besylate 5 Mg Tablet 5 Mg PO DAILY Atorvastatin Calcium 80 Mg Tablet 80 Mg PO HS Ferrous Sulfate 325 Mg Tablet 325 Mg PO DAILY@0700 Flomax (Tamsulosin HCl) 0.4 Mg Cap 0.4 Mg PO DAILY@1800 Clopidogrel (Clopidogrel Bisulfate) 75 Mg Tablet 75 Mg PO DAILY Bisoprolol Fumarate 5 Mg Tablet 5 Mg PO DAILY Reported Omnipred (Prednisolone Acetate) 10 Ml Drops.susp 1 Drop OU BID 1% Simbrinza 1%-0.2% Eye Drops (Brinzolamide/Brimonidine Tart) 8 Ml Drops.susp 1 Drop OU TID Instructions to patient/family Please see electronic discharge instructions given to patient. Diagnosis/Problems Diagnosis/Problems (1) Ischemic stroke Status: Acute (2) Anemia Assessment & Plan: Start iron therapy (3) Expressive aphasia (4) CAD (coronary artery disease) (5) Dysphagia (6) Hyperlipidemia (7) PVD (peripheral vascular disease) (8) Hypertension (9) Right sided weakness (10) Klinefelter syndrome (11) Constipation (12) Depression (13) Hyponatremia (14) DVT prophylaxis (15) Received intravenous tissue plasminogen activator (tPA) in emergency department (16) Urinary retention Assessment & Plan: Resolved (17) Lee catheter in place Assessment & Plan: Resolved (18) S/P carotid endarterectomy (19) S/P cataract extraction (20) Former smoker (21) Occult blood positive stool Clinical Quality Measures DVT/VTE Risk/Contraindication: Risk Factor Score Per Nursin RFS Level Per Nursing on Admit: 4+=Very High BOOGIE WHITTEN DO March 01, 2019 08:07
[2019-03-01] MEDS: SERTRALINE 100 MG (ZOLOFT) TAB PO SCH (08:32)
[2019-03-01] MEDS: amLODIPine 5 MG (NORVASC) TAB PO SCH (08:32)
[2019-03-01] MEDS: BISOPROLOL 5 MG TAB (ZEBETA) PO SCH (08:32)
[2019-03-01] MEDS: SENNA W/DOCUSATE (SENOKOT S) TABLET PO SCH (08:33)
[2019-03-01] MEDS: ASPIRIN 81 MG CHEW (CHILDREN'S ASA) PO SCH (08:33)
[2019-03-01] MEDS: CLOPIDOGREL 75 MG (PLAVIX) TABLET PO SCH (08:33)
[2019-03-01] MEDS: POLYETHYLENE GLYCOL 17 GM (MIRALAX) PACK PO SCH (08:34)
[2019-03-01] MEDS: LIDOCAINE 4% (SALONPAS) PATCH TOP SCH (08:34)
[2019-03-01] MEDS: DICLOFENAC 1% GEL 100 GM (VOLTAREN) TUBE TOP SCH (08:34)
[2019-03-01] MEDS: EYE PO SCH (08:36)
[2019-03-01] MEDS: SIMBRINZA PO SCH (08:36)
[2019-03-01] MEDS: prednisoLONE 1% OPTH (PRED FORTE) 5 ML BTL OS SCH ×3 (08:37→16:01)
--- NOTE | 2019-03-01 09:10 | Occupational Ther Daily Note ---
OT Current Status-Daily Note Subjective No pain reported. Pt. smiles and states that he is ready to discharge. Appearance Pt. in bed. Agrees to work with OT. Mental Status/Objective Patient Orientation: Person, Place, Time, Situation Therapy Code Descriptions/Definitions Functional [place] Measure: 0=Not Assessed/NA 4=Minimal Assistance 1=Total Assistance 5=Supervision or Setup 2=Maximal Assistance 6=Modified [place] 3=Moderate Assistance 7=Complete [place] ADL-Treatment Therapy Code Descriptions/Definitions Functional [place] Measure: 0=Not Assessed/NA 4=Minimal Assistance 1=Total Assistance 5=Supervision or Setup 2=Maximal Assistance 6=Modified [place] 3=Moderate Assistance 7=Complete [place] Therapy Quality Codes: 6 Independent with activity with or without an assistive device 5 Patient requires set up or clean up by helper. Patient completes activity by themselves 4 Supervision or touching assist (CGA). Blossom provide cues , steadying assist 3 The helper provides less than half the effort to complete the activity 2 The helper provides more than half the effort to complete the activity 1 Dependent. The helper does all the effort to complete an activity 7 Patient refused to complete or attempt activity 9 The patient did not perform the activity before the current illness or injury 88 Not attempted due to Medical conditions or safety concerns Grooming (FIM): 5 (Set up to brush teeth and hair.) Oral Hygiene (QC): 4 Bathing (FIM): 5 (SBA in shower to wash all parts.) Shower/Bathe Self (QC): 4 Upper Body (FIM): 5 Upper Body Dressing (QC): 4 Lower Body Dressing (FIM): 4 (Pt. does require cues and assist to fully pull pants over hips. Pt. is able to don socks, and then requires shoes with cues.) Lower Body Dressing (QC): 4 On/Off Footwear (QC): 4 Transfers (B, C, W/C) (FIM): 5 (SBA with quad cane.) Shower Transfer(FIM): 5 Other Treatment Pt. is educated on continuing tasks to work on to increase right hand strength and coordination. Verbalizes understanding. However, this OT will reach out to pt's daughter to make sure no further questions are present. Education OT Patient Education: Correct positioning, Home exercise program, Modified ADL techniques, Progress toward Goal/Update tx plan, Purpose of tx/functional activities, Reviewed precautions, Rehab process, Transfer techniques Teaching Recipient: Patient Teaching Methods: Demonstration, Discussion Response to Teaching: Verbalize Understanding, Return Demonstration OT Short Term Goals Short Term Goals Time Frame: Feb 11, 2019 Eating(FIM): 4 Grooming(FIM): 44 Bathing(FIM): 3 Upper Body Dressing(FIM): 3 Lower Body Dressing(FIM): 3 Toileting(FIM): 4 Transfers (B,C,W/C) (FIM): 4 (met) Toilet/Commode Transfer(FIM): 4 Shower Transfer(FIM): 4 Additional Short Term Goals: 1-Demonstrate ADL Tasks, 2-Verbalize Understanding , 3-ImproveStrength/Gifty 1=Demonstrate adherence to instructed precautions during ADL tasks. 2=Patient will verbalize/demonstrate understanding of assistive devices/ modifications for ADL. 3=Patient will improve strength/tolerance for activity to enable patient to perform ADL's. OT Chips Screen Tender Goals Intermediate Goals Time Frame: February 25, 2019 Eating (FIM): 6 Eating (QC): 6 Groomin Oral Hygiene (QC): 6 Bathing(FIM): 5 Shower/Bathe Self (QC): 5 Upper Body Dressing(FIM): 5 Upper Body Dressing (QC): 5 Lower Body Dressing(FIM): 5 Lower Body Dressing (QC): 5 On/Off Footwear (QC): 5 Toileting(FIM): 6 Toileting Hygiene (QC): 6 Transfers (B,C,W/C) (FIM): 6 Toilet/Commode Transfer(FIM): 6 Toilet/Commode Transfer (QC): 6 Shower Transfer(FIM): 5 Additional Goals: 1-Demonstrate ADL Tasks, 2-Verbalize Understanding, 3- ImproveStrength/Gifty 1=Demonstrate adherence to instructed precautions during ADL tasks. 2=Patient will verbalize/demonstrate understanding of assistive devices/ modifications for ADL. 3=Patient will improve strength/tolerance for activity to enable patient to perform ADL's. OT Education/Plan Problem List/Assessment Assessment: Decreased UE Strength, Impaired Coordination, Impaired I ADL's, Impaired Self-Care Skills pt continue to make progress toward all OT goals. pt would benefit from additional OT services to maximize rehab potential and to increase overall independence with ADLS/ functional transfers. Discharge Recommendations Plan/Recommendations: Follow-up Planned Therapy D/C Recommendations: Home w/ Family Support, Occupational Therapy Home Care Treatment Plan/Plan of Care Treatment,Training & Education: Yes Patient would benefit from OT for education, treatment and training to promote independence in ADL's, mobility, safety and/or upper extremity function for ADL' s. Plan of Care: ADL Retraining, Functional Mobility, Group Exercise/Act as Ind, UE Funct Exercise/Act Treatment Duration: February 25, 2019 Frequency: At least 5 of 7 days/Wk (IRF) Estimated Hrs Per Day: 1.5 hours per day Agreement: Yes Rehab Potential: Good Time/GCodes Start Time: 08:30 Stop Time: 09:00 Total Time Billed (hr/min): 30 Billed Treatment Time 1, ADL x 2 PAULETTE HALL OT March 01, 2019 09:10
--- NOTE | 2019-03-01 09:14 | Therapy Team Discharge Summary ---
Therapy Discharge Summary Discharge Recommendations Date of Discharge 03-01-19 Therapy D/C Recommendations: Home w/ Family Support, Occupational Therapy Home Care Occupational Therapy Pt. seen for OT assistance to work on ADL skills. Pt. has made great progress, and has met some goals. Does still require cues and assist at times to pull pants over hips. Pt. tolerates treatment well overall. Will discharge home with family today. Recommend home health OT for daily skills. Decreased UE Strength, Impaired Coordination, Impaired I ADL's, Impaired Self- Care Skills PT Bonbon Dipper Goals Bon[place] Di[place] Goals PT Mcfp Goals Time Frame: Feb 18, 2019 Transfers (B,C,W/C) (FIM): 4 (met) Roll Left to Right (QC): 4 Sit to Lying (QC): 4 Lying-Sitting on Side/Bed(QC): 4 Sit to Stand (QC): 4 Chair/Cej-oh-Rluap Xfer(QC): 4 Car Transfer (QC): 4 Gait (FIM): 2 Distance: 50' Walk 10 feet (QC): 3 Walk 10ft-Uneven Surface(QC): 3 Walk 50ft with 2 Turns (QC): 3 Gait Level of Assist: 4 Gait Assistive Device: Cane Large Base Quad Wheelchair (FIM): 6 Distance: 150' Wheelchair Level of Assist: 6 Wheel 50 feet with 2 turns (QC: 6 Stairs (FIM): 1 # of Steps: 1 1 Step (curb) (QC): 3 Stairs Level Of Assist: 4 OT Mcfp Goals Mcfp Goals Time Frame: February 25, 2019 Eating (FIM): 6 (met) Eating (QC): 6 (met) Oral Hygiene (QC): 6 (not met) Grooming(FIM): 6 (not met) Bathing(FIM): 5 (met) Shower/Bathe Self (QC): 5 (not met) Upper Body Dressing(FIM): 5 (met) Upper Body Dressing (QC): 5 (not met) Lower Body Dressing(FIM): 5 (met) Lower Body Dressing (QC): 5 (not met) On/Off Footwear (QC): 5 (not met) Toileting(FIM): 6 (met) Toileting Hygiene (QC): 6 (met) Transfers (B,C,W/C) (FIM): 6 (not met) Toilet/Commode Transfer(FIM): 6 (not met) Toilet/Commode Transfer (QC): 6 (not met) Shower Transfer(FIM): 5 (met) Additional Goals: 1-Demonstrate ADL Tasks, 2-Verbalize Understanding, 3- ImproveStrength/Gifty 1=Demonstrate adherence to instructed precautions during ADL tasks. 2=Patient will verbalize/demonstrate understanding of assistive devices/ modifications for ADL. 3=Patient will improve strength/tolerance for activity to enable patient to perform ADL's. Speech Bonbon Dipper Goals Bonbon Dipper Goals 1) Patient will communicate basic wants and needs with 2-3 word phrases during therapy sessions. 2) Patient will maintain adequate nutrition/hydration via safe effective swallow function. PAULETTE HALL OT March 01, 2019 09:14
--- NOTE | 2019-03-01 09:40 | Speech Therapy Daily Note ---
Speech Daily Progress Note Subjective Date Seen by Provider: March 01, 2019 Time Seen by Provider: 00:15 The patient is excited about returning home this afternoon. Communication Comprehension: 7 Expression: 5 Social Cognition Social Interaction: 7 Problem Solvin Memory: 7 Speech Short Term Goals Short Term Goals Short Term Goals 1) The patient will demonstrate orientation to person, place time and situation with 75% accuracy provided with stimulation and choices. Met 2) The patient will demonstrate correct naming of ten functional simple items during therapy session. met at 80% 3) The patient will vollow one-step verbal commands with mod verbal/visual cues with 80% accuracy. Met 4) The patient will tolerate least restrictive diet level without signs/ symptoms of aspiration. Met 5) The patient will utilize compensatory strategies as trained for safe oral intake at 90% given minimal cues. Met Speech Shelter Goals Scalping Machine Operator Goals 1) Patient will communicate basic wants and needs with 2-3 word phrases during therapy sessions. Met at 80% 2) Patient will maintain adequate nutrition/hydration via safe effective swallow function. Met Speech-Plan Patient/Family Goals Patient/Family Goals: The patient will discharge to home with his this afternoon. Treatment Plan Speech Therapy Treatment Plan: Discontinue ST The patient will receive ST in outpatient. Treatment Duration: March 01, 2019 Frequency: 5 times per week Estimated Hrs Per Day: .5 hour per day Rehab Potential: Good Barriers to Learning: Expressive aphasia Pt/Family Agrees to Plan: Yes Safety Risks/Education Teaching Recipient: Patient Teaching Methods: Discussion Response to Teaching: Verbalize Understanding Education Topics Provided: Communication strategies to use at home. Time Speech Therapy Time In: 07:45 Speech Therapy Time Out: 08:00 Total Billed Time: 15 Billed Treatment Time [address] March 01, 2019 09:40
--- NOTE | 2019-03-01 09:48 | Therapy Team Discharge Summary ---
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 The patient's dysphagia resolved as his oral motor function returned. He has been on a regular diet level for a few weeks. His expressive aphasia has resolved at 80% with spontaneous speech at 90% or greater. The patient is being discharged from for his return home today. He will be receiving skilled ST as an outpatient. PT Senior Care Goals Primary Teaching Assistant Goals PT Primary Teaching Assistant Goals Time Frame: Feb 18, 2019 Transfers (B,C,W/C) (FIM): 4 (met) Roll Left to Right (QC): 4 Sit to Lying (QC): 4 Lying-Sitting on Side/Bed(QC): 4 Sit to Stand (QC): 4 Chair/Bvy-yb-Jbhwa Xfer(QC): 4 Car Transfer (QC): 4 Gait (FIM): 2 Distance: 50' Walk 10 feet (QC): 3 Walk 10ft-Uneven Surface(QC): 3 Walk 50ft with 2 Turns (QC): 3 Gait Level of Assist: 4 Gait Assistive Device: Cane Large Base Quad Wheelchair (FIM): 6 Distance: 150' Wheelchair Level of Assist: 6 Wheel 50 feet with 2 turns (QC: 6 Stairs (FIM): 1 # of Steps: 1 1 Step (curb) (QC): 3 Stairs Level Of Assist: 4 OT Primary Teaching Assistant Goals Senior Care Goals Time Frame: February 25, 2019 Eating (FIM): 6 (met) Eating (QC): 6 (met) Oral Hygiene (QC): 6 (not met) Grooming(FIM): 6 (not met) Bathing(FIM): 5 (met) Shower/Bathe Self (QC): 5 (not met) Upper Body Dressing(FIM): 5 (met) Upper Body Dressing (QC): 5 (not met) Lower Body Dressing(FIM): 5 (met) Lower Body Dressing (QC): 5 (not met) On/Off Footwear (QC): 5 (not met) Toileting(FIM): 6 (met) Toileting Hygiene (QC): 6 (met) Transfers (B,C,W/C) (FIM): 6 (not met) Toilet/Commode Transfer(FIM): 6 (not met) Toilet/Commode Transfer (QC): 6 (not met) Shower Transfer(FIM): 5 (met) Additional Goals: 1-Demonstrate ADL Tasks, 2-Verbalize Understanding, 3- ImproveStrength/Gifty 1=Demonstrate adherence to instructed precautions during ADL tasks. 2=Patient will verbalize/demonstrate understanding of assistive devices/ modifications for ADL. 3=Patient will improve strength/tolerance for activity to enable patient to perform ADL's. Speech Primary Teaching Assistant Goals Senior Care Goals 1) Patient will communicate basic wants and needs with 2-3 word phrases during therapy sessions. Met at 80% 2) Patient will maintain adequate nutrition/hydration via safe effective swallow function. Met EMILY SUAREZ March 01, 2019 09:48
--- NOTE | 2019-03-01 10:14 | NUR ---
CORE COMPOSER FEEDER met with patient to review IMM and Patient Choice Letter for outpatient therapy. Patient will proceed with discharge home today with [facility] outpatient PT/OT/PALLIATIVE CARE PHYSICIAN, CORE COMPOSER FEEDER faxed orders from patient's PCP to outpatient on 02/25. Per Ileana, patient will complete PT eval on 03/04 and possibly OT evaluation following. CORE COMPOSER FEEDER sent large base quad cane order to [facility] for delivery of item to patient's room today, prior to 3pm. Patient expresses no concerns regarding discharge plans and is eager to return home. Please see discharge orders for further information.
--- NOTE | 2019-03-01 12:02 | Physical Therapy Daily Note ---
PT Daily Note-Current Subjective Pt. agrees to Rx. States he is anxious to go home when asked. Smiles Pain Location: No Pain Reported Mental Status Patient Orientation: Non-Verbal/Aphasic minimal one word answers, some appropriate, some not Transfers Therapy Code Descriptions/Definitions Functional [place] Measure: 0=Not Assessed/NA 4=Minimal Assistance 1=Total Assistance 5=Supervision or Setup 2=Maximal Assistance 6=Modified [place] 3=Moderate Assistance 7=Complete [place] Therapy Quality Codes: 6 Independent with activity with or without an assistive device 5 Patient requires set up or clean up by helper. Patient completes activity by themselves 4 Supervision or touching assist (CGA). [place] provide cues , steadying assist 3 The helper provides less than half the effort to complete the activity 2 The helper provides more than half the effort to complete the activity 1 Dependent. The helper does all the effort to complete an activity 7 Patient refused to complete or attempt activity 9 The patient did not perform the activity before the current illness or injury 88 Not attempted due to Medical conditions or safety concerns Transfers (B, C, W/C) (FIM): 6 Scootin Rollin Roll Left to Right (QC): 6 Supine to/from Sit: 6 Sit to/from Stand: 6 Sit to Lying (QC): 6 Sit to Stand (QC): 6 Chair/Lst-qc-Lthoy Xfer(QC): 6 Bed to/from Chair: 6 Car Transfer (QC): 6 Weight Bearing Right Lower Extremity: Right Full Weight Bearing Left Lower Extremity: Left Full Weight Bearing Gait Training Does the Patient Walk?: Yes Gait (FIM): 5 Distance (FIM): 3=150 ft (150,170,75) Walk 10 feet (QC): 5 Walk 50 ft with 2 Turns(QC): 5 Walk 150 ft (QC): 5 Walking 10ft/uneven surface-QC: 5 Gait Level of Assist: 5 Gait Persons Needed: 1 Gait Assistive Device: Cane Single Point left LE occas Stair Training Stair Training: Handrails/: 2 handrails Stairs (FIM): 5 #of Steps: 12 1 Step (curb) (QC): 5 4 Steps (QC): 5 12 Steps (QC): 5 Stairs: Pattern: Step to Level of Assist: 5 pt. needs many reminders for sequence ans safety for stairs Balance Picking up an Object (QC): 5 Assessment Current Status: Good Progress pt. needs cuing and instruction for safety and occas CGA PT Short Term Goals Short Term Goals Time Frame: Feb 04, 2019 Transfers (B,C,W/C) (FIM): 4 (met) Gait (FIM): 1 (met) Gait Distance Comment: 20' Gait Level of Assist: 3 Gait Assistive Device: Walker Henry Wheelchair Distance: 80' PT Usp Goals Usp Goals PT Usp Goals Time Frame: Feb 18, 2019 Transfers (B,C,W/C) (FIM): 4 (met) Sit to Lying (QC): 4 Lying-Sitting on Side/Bed(QC): 4 Sit to Stand (QC): 4 Rollin Roll Left to Right (QC): 4 Chair/Wdy-zd-Ihuei Xfer(QC): 4 Car Transfer (QC): 4 Gait (FIM): 2 Distance: 50' Walk 10 feet (QC): 3 Walk 10ft-Uneven Surface(QC): 3 Walk 50ft with 2 Turns (QC): 3 Gait Level of Assist: 4 Gait Assistive Device: Cane Large Base Quad Wheelchair (FIM): 6 Distance: 150' Wheelchair Level of Assist: 6 Wheel 50 feet with 2 turns (QC: 6 Stairs (FIM): 1 # of Steps: 1 1 Step (curb) (QC): 3 Stairs Level Of Assist: 4 PT Plan Treatment/Plan Treatment Plan: Discontinue PT Treatment Plan: Bed Mobility, Concurrent Therapy, Education, Functional Activity Gifty, Functional Strength, Group Therapy, Gait, Safety, Therapeutic Exercise, Transfers Treatment Duration: Feb 18, 2019 Frequency: At least 5 of 7 days/Wk (IRF) Estimated Hrs Per Day: 1.5 hours per day Patient and/or Family Agrees t: Yes Safety Risks/Education Patient Education: Gait Training, Transfer Techniques, Steps, Reviewed Precautions, Disease Process, Safety Issues Teaching Recipient: Patient Teaching Methods: Demonstration, Discussion Response to Teaching: Verbalize Understanding, Return Demonstration, Reinforcement Needed Time/GCodes Time In: 1130 Time Out: 1200 Total Billed Treatment Time: 30 Total Billed Treatment 1,FA30m G Codes Necessary: ALETHEA Garcia FELT CEMENTER March 01, 2019 12:02
--- NOTE | 2019-03-01 13:00 | NUR ---
HAS HAD MANY VISITORS TODAY. LOOKING FORWARD TO DISCHARGE THIS AFTERNOON. QUAD CANE HAS BEEN DELIVERED.
--- NOTE | 2019-03-01 14:11 | Therapy Team Discharge Summary ---
Therapy Discharge Summary Discharge Recommendations Date of Discharge 03/01/2019 Therapy D/C Recommendations: Home w/ Family Support, Occupational Therapy Home Care, Physical Therapy Outpatient Physical Therapy This patient was admitted to this unit post CVA. 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 Upon admission to this unit, he required mod assist with transfers , walked 8 ft with AD with much assist, he was unable/unsafe to attempt stairs. Treatment consisted of functional strength and balance training paired with safety education to improve his bed mobility, transfers and gait pattern. He did make functional progress and at discharge he was mod indep with transfers, SBA with gait and went up and down stairs scoring at a level 5. He has potential to continue to make functional gains with continued therapy services. Recommend outpt therapy services upon discharge. Occupational Therapy Decreased UE Strength, Impaired Coordination, Impaired I ADL's, Impaired Self- Care Skills PT Penitentiary Goals Public Health Program Manager Goals PT Penitentiary Goals Time Frame: Feb 18, 2019 Transfers (B,C,W/C) (FIM): 4 (exceeded) Roll Left to Right (QC): 4 Sit to Lying (QC): 4 Lying-Sitting on Side/Bed(QC): 4 Sit to Stand (QC): 4 Chair/Ilj-mp-Iljsy Xfer(QC): 4 Car Transfer (QC): 4 Gait (FIM): 2 (exceeded) Distance: 50' Walk 10 feet (QC): 3 Walk 10ft-Uneven Surface(QC): 3 Walk 50ft with 2 Turns (QC): 3 Gait Level of Assist: 4 Gait Assistive Device: Cane Large Base Quad Wheelchair (FIM): 6 Distance: 150' Wheelchair Level of Assist: 6 Wheel 50 feet with 2 turns (QC: 6 Stairs (FIM): 1 (exceeded) # of Steps: 1 1 Step (curb) (QC): 3 Stairs Level Of Assist: 4 (exceeded) all goals exceeded. OT Public Health Program Manager Goals Public Health Program Manager Goals Time Frame: February 25, 2019 Eating (FIM): 6 (met) Eating (QC): 6 (met) Oral Hygiene (QC): 6 (not met) Grooming(FIM): 6 (not met) Bathing(FIM): 5 (met) Shower/Bathe Self (QC): 5 (not met) Upper Body Dressing(FIM): 5 (met) Upper Body Dressing (QC): 5 (not met) Lower Body Dressing(FIM): 5 (met) Lower Body Dressing (QC): 5 (not met) On/Off Footwear (QC): 5 (not met) Toileting(FIM): 6 (met) Toileting Hygiene (QC): 6 (met) Transfers (B,C,W/C) (FIM): 6 (not met) Toilet/Commode Transfer(FIM): 6 (not met) Toilet/Commode Transfer (QC): 6 (not met) Shower Transfer(FIM): 5 (met) Additional Goals: 1-Demonstrate ADL Tasks, 2-Verbalize Understanding, 3- ImproveStrength/Gifty 1=Demonstrate adherence to instructed precautions during ADL tasks. 2=Patient will verbalize/demonstrate understanding of assistive devices/ modifications for ADL. 3=Patient will improve strength/tolerance for activity to enable patient to perform ADL's. Speech Public Health Program Manager Goals Public Health Program Manager Goals 1) Patient will communicate basic wants and needs with 2-3 word phrases during therapy sessions. Met at 80% 2) Patient will maintain adequate nutrition/hydration via safe effective swallow function. Met SHASHI MAHAJAN PT March 01, 2019 14:10
--- NOTE | 2019-03-01 14:47 | Speech Therapy Daily Note ---
Speech Daily Progress Note Subjective Date Seen by Provider: February 26, 2019 Time Seen by Provider: 00:30 Patient was resting in his recliner when I entered the room. Objective Patient completed word finding tasks with 80% accuracy. Assessment Assessment Current Status: Good Progress Communication Comprehension: 7 Expression: 5 Social Cognition Social Interaction: 7 Problem Solvin Memory: 7 Speech Short Term Goals Short Term Goals Short Term Goals 1) The patient will demonstrate orientation to person, place time and situation with 75% accuracy provided with stimulation and choices. Met 2) The patient will demonstrate correct naming of ten functional simple items during therapy session. met at 80% 3) The patient will vollow one-step verbal commands with mod verbal/visual cues with 80% accuracy. Met 4) The patient will tolerate least restrictive diet level without signs/ symptoms of aspiration. Met 5) The patient will utilize compensatory strategies as trained for safe oral intake at 90% given minimal cues. Met Speech Chemical Blender Goals Skilled Nursing Goals 1) Patient will communicate basic wants and needs with 2-3 word phrases during therapy sessions. Met at 80% 2) Patient will maintain adequate nutrition/hydration via safe effective swallow function. Met Speech-Plan Patient/Family Goals Patient/Family Goals: The patient is scheduled to return home with his next week. Treatment Plan Speech Therapy Treatment Plan: Continue Plan of Care The patient has made good progress. Treatment Duration: March 01, 2019 Frequency: 5 times per week Estimated Hrs Per Day: .5 hour per day Rehab Potential: Good Barriers to Learning: Expressive aphasia Pt/Family Agrees to Plan: Yes Safety Risks/Education Teaching Recipient: Patient Teaching Methods: Discussion Response to Teaching: Verbalize Understanding Education Topics Provided: Communication strategies. Time Speech Therapy Time In: 09:15 Speech Therapy Time Out: 09:45 Total Billed Time: 30 Billed Treatment Time 1, EMILY Rivero March 01, 2019 14:47
[2019-03-01 20:05] VITALS: BP 134/78
== END 2019-03-01 17:50 | disposition home or self-care (01) | DRG 57 ==
PROVIDERS: ADMIT Internal Medicine; ATTEND Internal Medicine
PROC: 0TJB8ZZ Inspection of Bladder, Via Natural or Artificial Opening Endoscopic (ICD-10-PCS; principal; 2019-02-03 08:58)
DX: I69.351 Hemiplegia and hemiparesis following cerebral infarction affecting right dominant side (principal); I69.320 Aphasia following cerebral infarction; I69.391 Dysphagia following cerebral infarction; R13.10 Dysphagia, unspecified; I25.10 Atherosclerotic heart disease of native coronary artery without angina pectoris; I10 Essential (primary) hypertension; I73.9 Peripheral vascular disease, unspecified; E87.1 Hypo-osmolality and hyponatremia; R19.5 Other fecal abnormalities; Q98.1 Klinefelter syndrome, male with more than two X chromosomes; E78.5 Hyperlipidemia, unspecified; F32.9 Major depressive disorder, single episode, unspecified; K59.00 Constipation, unspecified; N40.1 Benign prostatic hyperplasia with lower urinary tract symptoms; R33.9 Retention of urine, unspecified; I95.2 Hypotension due to drugs; D50.9 Iron deficiency anemia, unspecified; Z87.891 Personal history of nicotine dependence
CPT/HCPCS: 36415; 80053; 82274; 82728; 83540; 85025; 87081

== ENCOUNTER 2019-03-11 05:43 | Outpatient (CLI) | payer OTHER, BC ==
[~2019-03-11] VITALS: Ht 175.3 cm; Wt 82.1 kg
[~2019-03-11 05:43] MED LIST changes: +AMLO10TA7 PO; +AMLO5TAB9 PO; +ASPI-999 PO; +ATOR80TA76 PO; +BETH50TA9 PO; +BISO5TAB PO; +BRIN8DRO OU; +DICL100G18 TP; +FERR325T18 PO; +HEPA500016 SC; +LIDO1ADH41 TD; +NF-NACL1GT PO; +OLME1TAB54 PO; +PRED10DR OU; +SENN-40 PO; +SERT100T PO; +SERT100T8 PO; +TAMS0.4C98 PO
[2019-03-12] MEDS ORDERED: CLOP75TA28 PO (11:38)
[2019-03-12] MEDS ORDERED: CLOP75TA69 PO (11:42)
[2019-03-12] MEDS ORDERED: PANT40TA3 PO (11:46)
== END 2019-03-11 10:12 | disposition home or self-care (01) ==
LOC: PREOP 05:43
PROVIDERS: ATTEND Internal Medicine
DX: Z01.818 Encounter for other preprocedural examination (principal)

== ENCOUNTER 2019-03-12 09:02 | Day surgery (SDC) | payer OTHER, BC ==
[~2019-03-12] VITALS: Ht 175.3 cm; Wt 82.1 kg
--- OUTSIDE RECORDS SUMMARY | 2019-03-12 09:06 | XMS REPORT | Continuity of Care Document ---
Author Organization Unknown Address Unknown Allergies Active Description Code Type Severity Reaction Onset Reported/Identified Relationship to Patient Clinical Status Yes Penicillins [id number] Drug Allergy Unknown N/A 01/23/2019 Medications There [...] LADDER 04/01/2014 RADHA MCCLENDON MD Ot V06.1 [id number], COMBINED [ 01/23/2019 TIKI FLORESP Ot I10 ESSENTIAL (PRIMARY) HYPERTENSION 01/23/2019 TIKI FLORESP Ot I63.9 CEREBRAL INFARCTION, UNSPECIFIED 01/23/2019 TIKI FLORESP Ot R47.81 SLURRED SPEECH 01/23/2019 TIKI FLORESP Ot Z79.02 ICE CREAM MAN (CURRENT) USE OF ANTITHROMBOTI 01/23/2019 TIKI FLORESP Ot Z87.891 PERSONAL HISTORY OF NICOTINE DEPENDENCE 01/23/2019 TIKI FLORESP Ot Z88.0 ALLERGY STATUS TO PENICILLIN 01/23/2019 TIKI FLORESP Ot Z90.89 ACQUIRED ABSENCE OF OTHER ORGANS 01/23/2019 TIKI FLORESP Ot Z96.642 PRESENCE OF LEFT ARTIFICIAL HIP JOINT 02/08/2019 RUIZ WHITTEN DOI Ot E78.5 HYPERLIPIDEMIA, UNSPECIFIED 02/08/2019 MARIA DOLORES [place] BOOGIE Ot F32.9 MAJOR DEPRESSIVE DISORDER, SINGLE EPISOD 02/08/2019 MARIA DOLORES [place] BOOGIE Ot I10 ESSENTIAL (PRIMARY) HYPERTENSION 02/08/2019 MARIA DOLORES [place] BOOGIE Ot I25.10 ATHSCL HEART DISEASE OF [place] CORONARY 02/08/2019 WHITTEN DO, BOOGIE Ot I69.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 02/08/2019 WHITTEN DO, BOOGIE Ot I69.351 HEMIPLGA FOLLOWING CEREBRAL INFRC AFF RI 02/08/2019 WHITTEN DO, BOOGIE Ot I69.391 DYSPHAGIA FOLLOWING CEREBRAL INFARCTION 02/08/2019 WHITTEN DO, BOOGIE Ot I73.9 PERIPHERAL VASCULAR DISEASE, UNSPECIFIED 02/08/2019 WHITTEN DO, BOOGIE Ot K59.00 CONSTIPATION, UNSPECIFIED 02/08/2019 WHITTEN DO, BOOGIE Ot N40.1 BENIGN PROSTATIC HYPERPLASIA WITH LOWER 02/08/2019 WHITTEN DO, BOOGIE Ot 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, 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 02/08/2019 WHITTEN DO, BOOGIE Ot R13.10 DYSPHAGIA, UNSPECIFIED 02/08/2019 WHITTEN DO, BOOGIE Ot R33.9 RETENTION OF URINE, UNSPECIFIED 02/12/2019 WHITTEN DO, BOOGIE Ot E78.5 HYPERLIPIDEMIA, UNSPECIFIED 02/12/2019 WHITTEN DO, BOOGIE Ot F32.9 MAJOR DEPRESSIVE DISORDER, SINGLE EPISOD 02/12/2019 WHITTEN DO, BOOGIE Ot I10 ESSENTIAL (PRIMARY) HYPERTENSION 02/12/2019 WHITTEN DO, BOOGIE Ot I25.10 ATHSCL HEART DISEASE OF [place] CORONARY 02/12/2019 WHITTEN DO, BOOGIE Ot I69.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 02/12/2019 WHITTEN DO, BOOGIE Ot I69.351 HEMIPLGA FOLLOWING CEREBRAL INFRC AFF RI 02/12/2019 WHITTEN DO, BOOGIE Ot I69.391 DYSPHAGIA FOLLOWING CEREBRAL INFARCTION 02/12/2019 WHITTEN DO, BOOGIE Ot I73.9 PERIPHERAL VASCULAR DISEASE, UNSPECIFIED 02/12/2019 WHITTEN DO, BOOGIE Ot K59.00 CONSTIPATION, UNSPECIFIED 02/12/2019 WHITTEN DO, BOOGIE Ot N40.1 BENIGN PROSTATIC HYPERPLASIA WITH LOWER 02/12/2019 WHITTEN DO, BOOGIE Ot 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, 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 02/12/2019 WHITTEN DO, BOOGIE Ot R13.10 DYSPHAGIA, UNSPECIFIED 02/12/2019 WHITTEN DO, BOOGIE Ot R33.9 RETENTION OF URINE, UNSPECIFIED 02/15/2019 WHITTEN DO, BOOGIE Ot E78.5 HYPERLIPIDEMIA, UNSPECIFIED 02/15/2019 WHITTEN DO, BOOGIE Ot F32.9 MAJOR DEPRESSIVE DISORDER, SINGLE EPISOD 02/15/2019 WHITTEN DO, BOOGIE Ot I10 ESSENTIAL (PRIMARY) HYPERTENSION 02/15/2019 WHITTEN DO, BOOGIE Ot I25.10 ATHSCL HEART DISEASE OF [place] CORONARY 02/15/2019 WHITTEN DO, BOOGIE Ot I69.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 02/15/2019 WHITTEN DO, BOOGIE Ot I69.351 HEMIPLGA FOLLOWING CEREBRAL INFRC AFF RI 02/15/2019 WHITTEN DO, BOOGIE Ot I69.391 DYSPHAGIA FOLLOWING CEREBRAL INFARCTION 02/15/2019 WHITTEN DO, BOOGIE Ot I73.9 PERIPHERAL VASCULAR DISEASE, UNSPECIFIED 02/15/2019 WHITTEN DO, BOOGIE Ot K59.00 CONSTIPATION, UNSPECIFIED 02/15/2019 WHITTEN DO, BOOGIE Ot N40.1 BENIGN PROSTATIC HYPERPLASIA WITH LOWER 02/15/2019 WHITTEN DO, BOOGIE Ot 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, 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 02/15/2019 WHITTEN DO, BOOGIE Ot R13.10 DYSPHAGIA, UNSPECIFIED 02/15/2019 WHITTEN DO, BOOGIE Ot R33.9 RETENTION OF URINE, UNSPECIFIED 02/17/2019 WHITTEN DO, BOOGIE Ot E78.5 HYPERLIPIDEMIA, UNSPECIFIED 02/17/2019 WHITTEN DO, BOOGIE Ot F32.9 MAJOR DEPRESSIVE DISORDER, SINGLE EPISOD 02/17/2019 WHITTEN DO, BOOGIE Ot I10 ESSENTIAL (PRIMARY) HYPERTENSION 02/17/2019 WHITTEN DO, BOOGIE Ot I25.10 ATHSCL HEART DISEASE OF [place] CORONARY 02/17/2019 WHITTEN DO, BOOGIE Ot I69.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 02/17/2019 WHITTEN DO, BOOGIE Ot I69.351 HEMIPLGA FOLLOWING CEREBRAL INFRC AFF RI 02/17/2019 WHITTEN DO, BOOGIE Ot I69.391 DYSPHAGIA FOLLOWING CEREBRAL INFARCTION 02/17/2019 WHITTEN DO, BOOGIE Ot I73.9 PERIPHERAL VASCULAR DISEASE, UNSPECIFIED 02/17/2019 WHITTEN DO, BOOGIE Ot K59.00 CONSTIPATION, UNSPECIFIED 02/17/2019 WHITTEN DO, BOOGIE Ot N40.1 BENIGN PROSTATIC HYPERPLASIA WITH LOWER 02/17/2019 WHITTEN DO, BOOGIE Ot 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, 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 02/17/2019 WHITTEN DO, BOOGIE Ot R13.10 DYSPHAGIA, UNSPECIFIED 02/17/2019 WHITTEN DO, BOOGIE Ot R33.9 RETENTION OF URINE, UNSPECIFIED 02/22/2019 WHITTEN DO, BOOGIE Ot E78.5 HYPERLIPIDEMIA, UNSPECIFIED 02/22/2019 WHITTEN DO, BOOGIE Ot F32.9 MAJOR DEPRESSIVE DISORDER, SINGLE EPISOD 02/22/2019 WHITTEN DO, BOOGIE Ot I10 ESSENTIAL (PRIMARY) HYPERTENSION 02/22/2019 WHITTEN DO, BOOGIE Ot I25.10 ATHSCL HEART DISEASE OF [place] CORONARY 02/22/2019 WHITTEN DO, BOOGIE Ot I69.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 02/22/2019 WHITTEN DO, BOOGIE Ot I69.351 HEMIPLGA FOLLOWING CEREBRAL INFRC AFF RI 02/22/2019 WHITTEN DO, BOOGIE Ot I69.391 DYSPHAGIA FOLLOWING CEREBRAL INFARCTION 02/22/2019 WHITTEN DO, BOOGIE Ot I73.9 PERIPHERAL VASCULAR DISEASE, UNSPECIFIED 02/22/2019 WHITTEN DO, BOOGIE Ot K59.00 CONSTIPATION, UNSPECIFIED 02/22/2019 WHITTEN DO, BOOGIE Ot N40.1 BENIGN PROSTATIC HYPERPLASIA WITH LOWER 02/22/2019 WHITTEN DO, BOOGIE Ot 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, 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 02/22/2019 WHITTEN DO, BOOGIE Ot R13.10 DYSPHAGIA, UNSPECIFIED 02/22/2019 WHITTEN DO, BOOGIE Ot R33.9 RETENTION OF URINE, UNSPECIFIED 02/25/2019 WHITTEN DO, BOOGIE Ot E78.5 HYPERLIPIDEMIA, UNSPECIFIED 02/25/2019 WHITTEN DO, BOOGIE Ot F32.9 MAJOR DEPRESSIVE DISORDER, SINGLE EPISOD 02/25/2019 WHITTEN DO, BOOGIE Ot I10 ESSENTIAL (PRIMARY) HYPERTENSION 02/25/2019 WHITTEN DO, BOOGIE Ot I25.10 ATHSCL HEART DISEASE OF [place] CORONARY 02/25/2019 WHITTEN DO, BOOGIE Ot I69.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 02/25/2019 WHITTEN DO, BOOGIE Ot I69.351 HEMIPLGA FOLLOWING CEREBRAL INFRC AFF RI 02/25/2019 WHITTEN DO, BOOGIE Ot I69.391 DYSPHAGIA FOLLOWING CEREBRAL INFARCTION 02/25/2019 WHITTEN DO, BOOGIE Ot I73.9 PERIPHERAL VASCULAR DISEASE, UNSPECIFIED 02/25/2019 WHITTEN DO, BOOGIE Ot K59.00 CONSTIPATION, UNSPECIFIED 02/25/2019 WHITTEN DO, BOOGIE Ot N40.1 BENIGN PROSTATIC HYPERPLASIA WITH LOWER 02/25/2019 WHITTEN DO, BOOGIE Ot 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, 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 02/25/2019 WHITTEN DO, BOOGIE Ot R13.10 DYSPHAGIA, UNSPECIFIED 02/25/2019 WHITTEN DO, BOOGIE Ot R33.9 RETENTION OF URINE, UNSPECIFIED 03/01/2019 WHITTEN DO, BOOGIE Ot E78.5 HYPERLIPIDEMIA, UNSPECIFIED 03/01/2019 WHITTEN DO, BOOGIE Ot F32.9 MAJOR DEPRESSIVE DISORDER, SINGLE EPISOD 03/01/2019 WHITTEN DO, BOOGIE Ot I10 ESSENTIAL (PRIMARY) HYPERTENSION 03/01/2019 WHITTEN DO, BOOGIE Ot I25.10 ATHSCL HEART DISEASE OF [place] CORONARY 03/01/2019 WHITTEN DO, BOOGIE Ot I69.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 03/01/2019 WHITTEN DO, BOOGIE Ot I69.351 HEMIPLGA FOLLOWING CEREBRAL INFRC AFF RI 03/01/2019 WHITTEN DO, BOOGIE Ot I69.391 DYSPHAGIA FOLLOWING CEREBRAL INFARCTION 03/01/2019 WHITTEN DO, BOOGIE Ot I73.9 PERIPHERAL VASCULAR DISEASE, UNSPECIFIED 03/01/2019 WHITTEN DO, BOOGIE Ot K59.00 CONSTIPATION, UNSPECIFIED 03/01/2019 WHITTEN DO, BOOGIE Ot N40.1 BENIGN PROSTATIC HYPERPLASIA WITH LOWER 03/01/2019 WHITTEN DO, BOOGIE Ot 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, 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 03/01/2019 WHITTEN DO, BOOGIE Ot R13.10 DYSPHAGIA, UNSPECIFIED 03/01/2019 WHITTEN DO, BOOGIE Ot R33.9 RETENTION OF URINE, UNSPECIFIED 03/01/2019 WHITTEN DO, BOOGIE Ot E78.5 HYPERLIPIDEMIA, UNSPECIFIED 03/01/2019 WHITTEN DO, BOOGIE Ot F32.9 MAJOR DEPRESSIVE DISORDER, SINGLE EPISOD 03/01/2019 WHITTEN DO, BOOGIE Ot I10 ESSENTIAL (PRIMARY) HYPERTENSION 03/01/2019 WHITTEN DO, BOOGIE Ot I25.10 ATHSCL HEART DISEASE OF [place] CORONARY 03/01/2019 WHITTEN DO, BOOGIE Ot I69.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 03/01/2019 WHITTEN DO, BOOGIE Ot I69.351 HEMIPLGA FOLLOWING CEREBRAL INFRC AFF RI 03/01/2019 WHITTEN DO, BOOGIE Ot I69.391 DYSPHAGIA FOLLOWING CEREBRAL INFARCTION 03/01/2019 WHITTEN DO, BOOGIE Ot I73.9 PERIPHERAL VASCULAR DISEASE, UNSPECIFIED 03/01/2019 WHITTEN DO, BOOGIE Ot K59.00 CONSTIPATION, UNSPECIFIED 03/01/2019 WHITTEN DO, BOOGIE Ot N40.1 BENIGN PROSTATIC HYPERPLASIA WITH LOWER 03/01/2019 WHITTEN DO, BOOGIE Ot 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, 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 03/01/2019 WHITTEN DO, BOOGIE Ot R13.10 DYSPHAGIA, UNSPECIFIED 03/01/2019 WHITTEN DO, BOOGIE Ot R33.9 RETENTION OF URINE, UNSPECIFIED 03/01/2019 WHITTEN DO, BOOGIE Ot D50.9 IRON DEFICIENCY ANEMIA, UNSPECIFIED 03/01/2019 WHITTEN DO, BOOGIE Ot E78.5 HYPERLIPIDEMIA, UNSPECIFIED 03/01/2019 WHITTEN DO, BOOGIE Ot E87.1 HYPO-OSMOLALITY AND HYPONATREMIA 03/01/2019 WHITTEN DO, BOOGIE Ot F32.9 MAJOR DEPRESSIVE DISORDER, SINGLE EPISOD 03/01/2019 WHITTEN DO, BOOGIE Ot I10 ESSENTIAL (PRIMARY) HYPERTENSION 03/01/2019 WHITTEN DO, BOOGIE Ot I25.10 ATHSCL HEART DISEASE OF [place] CORONARY 03/01/2019 WHITTEN DO, BOOGIE Ot I69.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 03/01/2019 WHITTEN DO, BOOGIE Ot I69.351 HEMIPLGA FOLLOWING CEREBRAL INFRC AFF RI 03/01/2019 WHITTEN DO, BOOGIE Ot I69.391 DYSPHAGIA FOLLOWING CEREBRAL INFARCTION 03/01/2019 WHITTEN DO, BOOGIE Ot I73.9 PERIPHERAL VASCULAR DISEASE, UNSPECIFIED 03/01/2019 WHITTEN DO, BOOGIE Ot I95.2 HYPOTENSION DUE TO DRUGS 03/01/2019 WHITTEN DO, BOOGIE Ot K59.00 CONSTIPATION, UNSPECIFIED 03/01/2019 WHITTEN DO, BOOGIE Ot N40.1 BENIGN PROSTATIC HYPERPLASIA WITH LOWER 03/01/2019 WHITTEN DO, BOOGIE Ot 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, 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 03/01/2019 WHITTEN DO, BOOGIE Ot R13.10 DYSPHAGIA, UNSPECIFIED 03/01/2019 BOOGIE WHITTEN DO Ot R19.5 OTHER FECAL ABNORMALITIES 03/01/2019 BOOGIE WHITTEN DO Ot R33.9 RETENTION OF URINE, UNSPECIFIED 03/01/2019 BOOGIE WHITTEN DO Ot Z87.891 PERSONAL HISTORY OF NICOTINE DEPENDENCE Procedures Code Description Performed By Performed On [id number] INSPECTION OF BLADDER, ENDO 02/03/2019 Results Test Result Range Complete blood count [...] measurement by glucometer (mass/volume) 107 mg/dL 70-110 Complete blood count (CBC) with automated white blood cell (WBC) differential - 01/28/19 06:05 Blood leukocytes automated count (number/volume) 9.7 10*3/uL 4.3-11.0 Blood erythrocytes automated count (number/volume) 3.49 10*6/uL 4.35-5.85 Venous blood hemoglobin measurement (mass/volume) 10.6 g/dL 13.3-17.7 Blood hematocrit (volume fraction) 32 % 40-54 Automated erythrocyte mean corpuscular volume 91 [foz_us] 80-99 Automated erythrocyte mean corpuscular hemoglobin (mass per erythrocyte) 30 pg 25-34 Automated erythrocyte mean corpuscular hemoglobin concentration measurement ( mass/volume) 33 g/dL 32-36 Automated erythrocyte distribution width ratio 14.0 % 10.0-14.5 Automated blood platelet count (count/volume) 297 10*3/uL 130-400 Automated blood platelet mean volume measurement 9.2 [foz_us] 7.4-10.4 Automated blood neutrophils/100 leukocytes 70 % 42-75 Automated blood lymphocytes/100 leukocytes 14 % 12-44 Blood monocytes/100 leukocytes 12 % 0-12 Automated blood eosinophils/100 leukocytes 4 % 0-10 Automated blood basophils/100 leukocytes 1 % 0-10 Blood neutrophils automated count (number/volume) 6.7 10*3 1.8-7.8 Blood lymphocytes automated count (number/volume) 1.4 10*3 1.0-4.0 Blood monocytes automated count (number/volume) 1.1 10*3 0.0-1.0 Automated eosinophil count 0.4 10*3/uL 0.0-0.3 Automated blood basophil count (count/volume) 0.1 10*3/uL 0.0-0.1 Comprehensive metabolic panel - 01/28/19 06:05 Serum or plasma sodium measurement (moles/volume) 135 mmol/L 135-145 Serum or plasma potassium measurement (moles/volume) 4.2 mmol/L 3.6-5.0 Serum or plasma chloride measurement (moles/volume) 103 mmol/L 98-107 Carbon dioxide 23 mmol/L 21-32 Serum or plasma anion gap determination (moles/volume) 9 mmol/L 5-14 Serum or plasma urea nitrogen measurement (mass/volume) 14 mg/dL 7-18 Serum or plasma creatinine measurement (mass/volume) 0.71 mg/dL 0.60-1.30 Serum or plasma urea nitrogen/creatinine mass ratio 20 NRG Serum or plasma creatinine measurement with calculation of estimated glomerular filtration rate > NRG Serum or plasma glucose measurement (mass/volume) 106 mg/dL 70-105 Serum or plasma calcium measurement (mass/volume) 9.5 mg/dL 8.5-10.1 Serum or plasma total bilirubin measurement (mass/volume) 0.6 mg/dL 0.1-1.0 Serum or plasma alkaline phosphatase measurement (enzymatic activity/volume) 67 U/L 40-136 Serum or plasma aspartate aminotransferase measurement (enzymatic activity/ volume) 23 U/L 5-34 Serum or plasma alanine aminotransferase measurement (enzymatic activity/volume ) 18 U/L 0-55 Serum or plasma protein measurement (mass/volume) 6.6 g/dL 6.4-8.2 Serum or plasma albumin measurement (mass/volume) 3.6 g/dL 3.2-4.5 CALCIUM CORRECTED 9.8 mg/dL 8.5-10.1 Serum iron and total iron binding capacity panel - 01/28/19 06:05 Serum or plasma iron measurement (mass/volume) 20 % 40- 180 Total iron binding capacity and transferrin saturation measurement 8 % 15-50 Iron binding capacity [mass/volume] in serum or plasma 242 % 280-380 UIBC (unsaturated iron binding capacity) 222 % 55-450 Serum or plasma ferritin measurement (mass/volume) 196.4 % 32.0-356.0 Methicillin resistant Staphylococcus aureus (MRSA) screening culture - 11:45 Methicillin resistant Staphylococcus aureus (MRSA) screening culture NEG NRG Complete blood count (CBC) with automated white blood cell (WBC) differential - 02/03/19 04:40 Blood leukocytes automated count (number/volume) 7.4 10*3/uL 4.3-11.0 Blood erythrocytes automated count (number/volume) 3.32 10*6/uL 4.35-5.85 Venous blood hemoglobin measurement (mass/volume) 10.1 g/dL 13.3-17.7 Blood hematocrit (volume fraction) 30 % 40-54 Automated erythrocyte mean corpuscular volume 89 [foz_us] 80-99 Automated erythrocyte mean corpuscular hemoglobin (mass per erythrocyte) 30 pg 25-34 Automated erythrocyte mean corpuscular hemoglobin concentration measurement ( mass/volume) 34 g/dL 32-36 Automated erythrocyte distribution width ratio 13.8 % 10.0-14.5 Automated blood platelet count (count/volume) 412 10*3/uL 130-400 Automated blood platelet mean volume measurement 9.0 [foz_us] 7.4-10.4 Automated blood neutrophils/100 leukocytes 64 % 42-75 Automated blood lymphocytes/100 leukocytes 20 % 12-44 Blood monocytes/100 leukocytes 12 % 0-12 Automated blood eosinophils/100 leukocytes 3 % 0-10 Automated blood basophils/100 leukocytes 1 % 0-10 Blood neutrophils automated count (number/volume) 4.7 10*3 1.8-7.8 Blood lymphocytes automated count (number/volume) 1.5 10*3 1.0-4.0 Blood monocytes automated count (number/volume) 0.9 10*3 0.0-1.0 Automated eosinophil count 0.2 10*3/uL 0.0-0.3 Automated blood basophil count (count/volume) 0.1 10*3/uL 0.0-0.1 Comprehensive metabolic panel - 02/03/19 04:40 Serum or plasma sodium measurement (moles/volume) 137 mmol/L 135-145 Serum or plasma potassium measurement (moles/volume) 3.9 mmol/L 3.6-5.0 Serum or plasma chloride measurement (moles/volume) 108 mmol/L 98-107 Carbon dioxide 22 mmol/L 21-32 Serum or plasma anion gap determination (moles/volume) 7 mmol/L 5-14 Serum or plasma urea nitrogen measurement (mass/volume) 17 mg/dL 7-18 Serum or plasma creatinine measurement (mass/volume) 0.75 mg/dL 0.60-1.30 Serum or plasma urea nitrogen/creatinine mass ratio 23 NRG Serum or plasma creatinine measurement with calculation of estimated glomerular filtration rate > NRG Serum or plasma glucose measurement (mass/volume) 103 mg/dL 70-105 Serum or plasma calcium measurement (mass/volume) 9.5 mg/dL 8.5-10.1 Serum or plasma total bilirubin measurement (mass/volume) 0.5 mg/dL 0.1-1.0 Serum or plasma alkaline phosphatase measurement (enzymatic activity/volume) 93 U/L 40-136 Serum or plasma aspartate aminotransferase measurement (enzymatic activity/ volume) 32 U/L 5-34 Serum or plasma alanine aminotransferase measurement (enzymatic activity/volume ) 47 U/L 0-55 Serum or plasma protein measurement (mass/volume) 6.5 g/dL 6.4-8.2 Serum or plasma albumin measurement (mass/volume) 3.5 g/dL 3.2-4.5 CALCIUM CORRECTED 9.9 mg/dL 8.5-10.1 Complete blood count (CBC) with automated white blood cell (WBC) differential - 02/16/19 04:40 Blood leukocytes automated count (number/volume) 6.9 10*3/uL 4.3-11.0 Blood erythrocytes automated count (number/volume) 3.61 10*6/uL 4.35-5.85 Venous blood hemoglobin measurement (mass/volume) 10.5 g/dL 13.3-17.7 Blood hematocrit (volume fraction) 32 % 40-54 Automated erythrocyte mean corpuscular volume 90 [foz_us] 80-99 Automated erythrocyte mean corpuscular hemoglobin (mass per erythrocyte) 29 pg 25-34 Automated erythrocyte mean corpuscular hemoglobin concentration measurement ( mass/volume) 33 g/dL 32-36 Automated erythrocyte distribution width ratio 13.8 % 10.0-14.5 Automated blood platelet count (count/volume) 336 10*3/uL 130-400 Automated blood platelet mean volume measurement 9.5 [foz_us] 7.4-10.4 Automated blood neutrophils/100 leukocytes 67 % 42-75 Automated blood lymphocytes/100 leukocytes 19 % 12-44 Blood monocytes/100 leukocytes 10 % 0-12 Automated blood eosinophils/100 leukocytes 3 % 0-10 Automated blood basophils/100 leukocytes 1 % 0-10 Blood neutrophils automated count (number/volume) 4.6 10*3 1.8-7.8 Blood lymphocytes automated count (number/volume) 1.3 10*3 1.0-4.0 Blood monocytes automated count (number/volume) 0.7 10*3 0.0-1.0 Automated eosinophil count 0.2 10*3/uL 0.0-0.3 Automated blood basophil count (count/volume) 0.1 10*3/uL 0.0-0.1 Comprehensive metabolic panel - 02/16/19 04:40 Serum or plasma sodium measurement (moles/volume) 144 mmol/L 135-145 Serum or plasma potassium measurement (moles/volume) 4.2 mmol/L 3.6-5.0 Serum or plasma chloride measurement (moles/volume) 109 mmol/L 98-107 Carbon dioxide 27 mmol/L 21-32 Serum or plasma anion gap determination (moles/volume) 8 mmol/L 5-14 Serum or plasma urea nitrogen measurement (mass/volume) 12 mg/dL 7-18 Serum or plasma creatinine measurement (mass/volume) 0.81 mg/dL 0.60-1.30 Serum or plasma urea nitrogen/creatinine mass ratio 15 NRG Serum or plasma creatinine measurement with calculation of estimated glomerular filtration rate > NRG Serum or plasma glucose measurement (mass/volume) 102 mg/dL 70-105 Serum or plasma calcium measurement (mass/volume) 9.8 mg/dL 8.5-10.1 Serum or plasma total bilirubin measurement (mass/volume) 0.3 mg/dL 0.1-1.0 Serum or plasma alkaline phosphatase measurement (enzymatic activity/volume) 87 U/L 40-136 Serum or plasma aspartate aminotransferase measurement (enzymatic activity/ volume) 20 U/L 5-34 Serum or plasma alanine aminotransferase measurement (enzymatic activity/volume ) 36 U/L 0-55 Serum or plasma protein measurement (mass/volume) 6.8 g/dL 6.4-8.2 Serum or plasma albumin measurement (mass/volume) 3.6 g/dL 3.2-4.5 CALCIUM CORRECTED 10.1 mg/dL 8.5-10.1 Complete blood count (CBC) with automated white blood cell (WBC) differential - 02/22/19 04:20 Blood leukocytes automated count (number/volume) 7.1 10*3/uL 4.3-11.0 Blood erythrocytes automated count (number/volume) 3.53 10*6/uL 4.35-5.85 Venous blood hemoglobin measurement (mass/volume) 10.3 g/dL 13.3-17.7 Blood hematocrit (volume fraction) 31 % 40-54 Automated erythrocyte mean corpuscular volume 89 [foz_us] 80-99 Automated erythrocyte mean corpuscular hemoglobin (mass per erythrocyte) 29 pg 25-34 Automated erythrocyte mean corpuscular hemoglobin concentration measurement ( mass/volume) 33 g/dL 32-36 Automated erythrocyte distribution width ratio 13.8 % 10.0-14.5 Automated blood platelet count (count/volume) 247 10*3/uL 130-400 Automated blood platelet mean volume measurement 10.1 [foz_us] 7.4-10.4 Automated blood neutrophils/100 leukocytes 66 % 42-75 Automated blood lymphocytes/100 leukocytes 22 % 12-44 Blood monocytes/100 leukocytes 8 % 0-12 Automated blood eosinophils/100 leukocytes 3 % 0-10 Automated blood basophils/100 leukocytes 1 % 0-10 Blood neutrophils automated count (number/volume) 4.7 10*3 1.8-7.8 Blood lymphocytes automated count (number/volume) 1.6 10*3 1.0-4.0 Blood monocytes automated count (number/volume) 0.6 10*3 0.0-1.0 Automated eosinophil count 0.2 10*3/uL 0.0-0.3 Automated blood basophil count (count/volume) 0.0 10*3/uL 0.0-0.1 Comprehensive metabolic panel - 02/22/19 04:20 Serum or plasma sodium measurement (moles/volume) 140 mmol/L 135-145 Serum or plasma potassium measurement (moles/volume) 3.8 mmol/L 3.6-5.0 Serum or plasma chloride measurement (moles/volume) 109 mmol/L 98-107 Carbon dioxide 21 mmol/L 21-32 Serum or plasma anion gap determination (moles/volume) 10 mmol/L 5-14 Serum or plasma urea nitrogen measurement (mass/volume) 14 mg/dL 7-18 Serum or plasma creatinine measurement (mass/volume) 0.75 mg/dL 0.60-1.30 Serum or plasma urea nitrogen/creatinine mass ratio 19 NRG Serum or plasma creatinine measurement with calculation of estimated glomerular filtration rate > NRG Serum or plasma glucose measurement (mass/volume) 103 mg/dL 70-105 Serum or plasma calcium measurement (mass/volume) 9.4 mg/dL 8.5-10.1 Serum or plasma total bilirubin measurement (mass/volume) 0.3 mg/dL 0.1-1.0 Serum or plasma alkaline phosphatase measurement (enzymatic activity/volume) 88 U/L 40-136 Serum or plasma aspartate aminotransferase measurement (enzymatic activity/ volume) 25 U/L 5-34 Serum or plasma alanine aminotransferase measurement (enzymatic activity/volume ) 41 U/L 0-55 Serum or plasma protein measurement (mass/volume) 6.4 g/dL 6.4-8.2 Serum or plasma albumin measurement (mass/volume) 3.5 g/dL 3.2-4.5 CALCIUM CORRECTED 9.8 mg/dL 8.5-10.1 Stool occult blood screen - 02/23/19 08:20 Stool gastrointestinal hemoglobin detection POSITIVE NEGATIVE Complete blood count (CBC) with automated white blood cell (WBC) differential - 03/01/19 05:20 Blood leukocytes automated count (number/volume) 6.8 10*3/uL 4.3-11.0 Blood erythrocytes automated count (number/volume) 3.67 10*6/uL 4.35-5.85 Venous blood hemoglobin measurement (mass/volume) 10.5 g/dL 13.3-17.7 Blood hematocrit (volume fraction) 33 % 40-54 Automated erythrocyte mean corpuscular volume 89 [foz_us] 80-99 Automated erythrocyte mean corpuscular hemoglobin (mass per erythrocyte) 29 pg 25-34 Automated erythrocyte mean corpuscular hemoglobin concentration measurement ( mass/volume) 32 g/dL 32-36 Automated erythrocyte distribution width ratio 13.8 % 10.0-14.5 Automated blood platelet count (count/volume) 249 10*3/uL 130-400 Automated blood platelet mean volume measurement 10.0 [foz_us] 7.4-10.4 Automated blood neutrophils/100 leukocytes 64 % 42-75 Automated blood lymphocytes/100 leukocytes 23 % 12-44 Blood monocytes/100 leukocytes 10 % 0-12 Automated blood eosinophils/100 leukocytes 3 % 0-10 Automated blood basophils/100 leukocytes 1 % 0-10 Blood neutrophils automated count (number/volume) 4.3 10*3 1.8-7.8 Blood lymphocytes automated count (number/volume) 1.6 10*3 1.0-4.0 Blood monocytes automated count (number/volume) 0.7 10*3 0.0-1.0 Automated eosinophil count 0.2 10*3/uL 0.0-0.3 Automated blood basophil count (count/volume) 0.0 10*3/uL 0.0-0.1 Comprehensive metabolic panel - 03/01/19 05:20 Serum or plasma sodium measurement (moles/volume) 142 mmol/L 135-145 Serum or plasma potassium measurement (moles/volume) 3.7 mmol/L 3.6-5.0 Serum or plasma chloride measurement (moles/volume) 109 mmol/L 98-107 Carbon dioxide 25 mmol/L 21-32 Serum or plasma anion gap determination (moles/volume) 8 mmol/L 5-14 Serum or plasma urea nitrogen measurement (mass/volume) 11 mg/dL 7-18 Serum or plasma creatinine measurement (mass/volume) 0.78 mg/dL 0.60-1.30 Serum or plasma urea nitrogen/creatinine mass ratio 14 NRG Serum or plasma creatinine measurement with calculation of estimated glomerular filtration rate > NRG Serum or plasma glucose measurement (mass/volume) 89 mg/dL 70-105 Serum or plasma calcium measurement (mass/volume) 9.6 mg/dL 8.5-10.1 Serum or plasma total bilirubin measurement (mass/volume) 0.3 mg/dL 0.1-1.0 Serum or plasma alkaline phosphatase measurement (enzymatic activity/volume) 83 U/L 40-136 Serum or plasma aspartate aminotransferase measurement (enzymatic activity/ volume) 21 U/L 5-34 Serum or plasma alanine aminotransferase measurement (enzymatic activity/volume ) 39 U/L 0-55 Serum or plasma protein measurement (mass/volume) 6.3 g/dL 6.4-8.2 Serum or plasma albumin measurement (mass/volume) 3.5 g/dL 3.2-4.5 CALCIUM CORRECTED 10.0 mg/dL 8.5-10.1 Encounters ACCT No. Visit Date/Time Discharge Status Pt. Type Provider Facility Loc./Unit Complaint [id number] 01/27/2019 16:40:00 03/01/2019 17:50:00 DIS Inpatient MARIA DOLORES GOULD BOOGIE [facility] IRF CVA [id number] 01/23/2019 18:20:00 01/23/2019 19:32:00 DIS Emergency TIKI FLORES [facility] ER STROKE LIKE SYMPTOMS [id number] 04/01/2014 15:11:00 04/01/2014 17:26:00 DIS Emergency RADHA MCCLENDON MD [facility] ER FALL [id number] 03/12/2019 10:15:00 PEN Preadmit MEHRDAD AMARAL MD [facility] ENDO FE DEFICIENCY ANEMIA/OCCULT+ BLOOD [id number] 03/11/2019 05:43:00 ACT Outpatient MEHRDAD AMARAL MD [facility] PREOP COLONOSCOPY/POSS EGD [id number] 03/09/2019 13:00:00 ACT Outpatient MEHRDAD AMARAL MD [facility] REHAB CVA
[2019-03-12] MEDS ORDERED: D5 LR IV SOLUTION 0 ML IV ONE (09:07)
[2019-03-12] MEDS ORDERED: LACTATED RINGERS 1,000 ML IV ONE (09:23)
[2019-03-12] MEDS ORDERED: LACTATED RINGERS 1,000 ML IV STA (10:01)
[2019-03-12 10:04] VITALS: BP 149/66
[2019-03-12] MEDS ORDERED: HURRICAINE EXT TUBE (BENZOCAINE) XX PRN (10:15)
[2019-03-12] MEDS ORDERED: LIDOCAINE JELLY 2% 6 ML SYRINGE MM PRN (10:15)
[2019-03-12] MEDS ORDERED: HURRICAINE EXT TUBE (BENZOCAINE) ONE (10:17)
--- NOTE | 2019-03-12 10:25 | Pre-Op Note & Conscious Sedat ---
Pre-Operative Progress Note H&P Reviewed The H&P was reviewed, patient examined and no changes noted. Date H&P Reviewed: March 12, 2019 Time H&P Reviewed: 10:25 Conscious Sedation Pre-Proced ASA Score 3 For ASA 3 and 4: Consider anesthesia and medical clearance. Also, for patients with a history of failed moderate sedation consider anesthesia. Airway Lungs Heart ASA score ASA 1: a normal healthy patient ASA 2: a patient with a mild systemic disease (mid diabetes, controlled hypertension, obesity ASA 3: a patient with a severe systemic disease that limits activity (angina , COPD, prior Myocardial infarction) ASA 4: a patient with an incapacitating disease that is a constant threat to life (CHF, renal failure) ASA 5: a moribund patient not expected to survive 24 hrs. (ruptured aneurysm) ASA 6: a declared brain- patient whose organs are being harvested. For emergent operations, add the letter E after the classification Mallampati Classification Grade 2 Sedation Plan Analgesia, Amnesia, Plan communicated to team members, Discussed options with patient/fam, Discussed risks with patient/fam The patient is an appropriate candidate to undergo the planned procedure, sedation, and anesthesia. The patient immediately re-assessed prior to indication. MEHRDAD AMARAL MD March 12, 2019 10:25
[2019-03-12] MEDS ORDERED: MIDAZOLAM 2 MG/2 ML (VERSED) VIAL ONE (10:38)
[2019-03-12] MEDS ORDERED: proPOfol 200 MG/20 ML (DIPRIVAN) VIAL IV ONE (10:38)
[2019-03-12] MEDS ORDERED: LIDOCAINE PF 2% 5 ML (XYLOCAINE) VIAL ONE (10:39)
[2019-03-12] MEDS ORDERED: GLYCOPYRROLATE 0.2 MG/ML (ROBINUL) 2 ML VIAL ONE (10:54)
[2019-03-12 11:35] VITALS: BP 175/80
[2019-03-12] MEDS ORDERED: CLOP75TA28 PO (11:38)
[2019-03-12] MEDS ORDERED: CLOP75TA69 PO (11:42)
[2019-03-12] MEDS ORDERED: PANT40TA3 PO (11:46)
[2019-03-12 12:05] VITALS: BP 156/80
[2019-03-12 12:30] VITALS: BP 156/80
--- NOTE | 2019-03-12 16:49 | OPERATIVE REPORT ---
DATE OF SERVICE: 03/12/2019 PANENDOSCOPY SUMMARY INDICATION FOR THE PROCEDURE: Panendoscopy is performed for evaluation of GI bleed with occult positive blood in the stool with iron deficiency anemia. DESCRIPTION OF PROCEDURE: The patient was placed in left lateral decubitus position. Prior to doing colonoscopy, digital rectal evaluation was performed. Prostate is mildly enlarged. There is a small subcentimeter nodule involving the upper left lateral quadrant of the prostate. No other abnormalities were noted on digital inspection of the anal canal or distal rectal vault. The colonoscope was then inserted into the rectum and under direct visualization advanced to the cecum. The cecum was identified by identification of the ileocecal valve and cecal strap. Photographic documentation was obtained. Careful inspection was made as the colonoscope was withdrawn. FINDINGS: There is no evidence for internal or external hemorrhoids and the rectum was unremarkable. Several small to medium size sigmoid diverticulum were present without evidence for diverticulitis. Other sigmoid colonic abnormalities were appreciated. The descending colon, splenic flexure and transverse colon were unremarkable. At the level of hepatic flexure, there was a small sessile adenomatous-appearing polyp measuring 4 x 6 mm in size. It was biopsied and ablated and submitted for histopathology with no blood loss. Two 3 mm polyps were noted, one in the cecum and the other one in the proximal ascending colon. They were both biopsied and ablated and submitted for histopathology. No other abnormalities were noted on colonoscopy of the cecum. ASSESSMENT AND PLAN: 1. Three small polyps were removed, largest from the hepatic flexure, 2 smaller 3 mm polyps in the proximal ascending colon and cecum all via hot forceps. There was no subsequent blood loss. 2. Mild to moderate diverticular disease without evidence for diverticulitis confined to the sigmoid colon. 3. Digital rectal evaluation was compatible with benign prostatic hypertrophy. The patient did have a small subcentimeter area of firmness along the lateral aspect of the upper left prostate not quadrant, will need to review office records for prostate-specific antigen evaluation and then have a discussion with the patient about whether or not he wishes to have further workup considering age and medical comorbidities. We then proceeded with EGD evaluation as there were no potential bleeding sites identified in the colon. The patient was placed in the left lateral decubitus position. The endoscope was inserted in the oral cavity and under direct visualization, esophagus was intubated. Endoscope was passed down the esophagus through the stomach and second portion of the duodenum. Careful inspection was made as the endoscope was withdrawn. The patient tolerated the procedure well. FINDINGS: The proximal, mid and distal esophagus were unremarkable with no potential bleeding sites being identified. There is no evidence of rings, webs, strictures or Muller's change on gross inspection. No evidence for hiatal hernia was noted. The cardia of the stomach was unremarkable. There was hemosiderin stranding from multiple areas in the fundus of the stomach along the greater curvature dependently. Two small benign-appearing shallow prepyloric gastric ulcers were noted with no visible vessel formation. A biopsy was obtained from gastric ulcer as well as the antrum for histopathology evaluation and Helicobacter evaluation. Mild duodenitis is present without evidence for duodenal ulcers present in the duodenal bulb, only the second and third portions of the duodenum were unremarkable. ASSESSMENT: Findings compatible with hemorrhagic gastritis were noted along the greater curvature of the fundus with antral erythema and 2 small benign-appearing prepyloric gastric ulcers. Biopsies were obtained and submitted for histopathology as well as Helicobacter evaluation. This is most likely medication, i.e., aspirin and Plavix related which was discussed with the patient. He was advised to discontinue aspirin. We will continue Plavix. Considering history of peripheral vascular disease as well as cerebrovascular disease and studies indicating that combination of aspirin and Plavix therapy are no better than one alone in the secondary prevention for stroke. Pantoprazole was initiated at 40 mg daily and did warn about increased risk for GI bleeding and was advised to resume Plavix on Friday. Job ID: [id number] DocumentID: [id number] Dictated Date: 03/12/2019 12:19:17 Manager Of Business Operations Date: 03/12/2019 16:48:52 Dictated By: MEHRDAD AMARAL MD
--- NOTE | 2019-03-17 13:41 | HISTORY AND PHYSICAL ---
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 While on acute rehabilitation he was noted to have mild iron deficiency, hemoglobin in the 10 range with low ferritin and low iron saturation levels. Subsequent stool was occult positive. He was discharged last week and reports that he has been doing well at home and comes with his . He is able to answer simple questions appropriately with a little bit of slowness in his speech and just straining shorter sentences together. He denies melena or bright red blood per rectum. He has had no abdominal pain. Reports a normal appetite. He is going to outpatient physical therapy and notes continued improvement voicing no concerns. Colonoscopy has been recommended in the past, but the patient refuses. He is now willing to consider and go through with colonoscopy after discussion of concerns. He is not aware of any family history for GI tract malignancy. PHYSICAL EXAMINATION: GENERAL: Reveals a white male appeared to be in no acute distress. He is using a cane independently. VITAL SIGNS: Weight was down 9.4 pounds from 4 months ago. Blood pressure 124/60. HEENT: Unremarkable. There is no evidence for facial droop. NECK: Revealed no JVD, adenopathy or bruits. CHEST: Clear to auscultation. CARDIOVASCULAR: Reveals regular rate and rhythm without murmur, S3 or S4. ABDOMEN: Soft, supple without mass, organomegaly or tenderness. EXTREMITIES: He has 4+ strength of the right upper extremity compared to five of the left. He has 4+ dorsiflexion of the right foot, 5+ plantar flexion and the remainder of the extremity strength on both sides is 5+. There is decrease in fine motor control right hand versus left, but the patient started off with nearly flaccid paralysis. ASSESSMENT AND PLAN: 1. After discussion, the patient is being set up for diagnostic colonoscopy with EGD to follow if there are no potential bleeding sites being identified on colonoscopy. As he is 6 weeks out from CVA, we will hold aspirin and Plavix starting tomorrow for essentially four days and keep this in mind during the procedure in regards of biopsy, polypectomy, etc. Prep instructions with Suprep kit were given and questions were answered including his 's. 2. Hypertension in good control. 3. Left middle cerebral artery distribution CVA with right hemiparesis and expressive aphasia, improving. Continue outpatient physical therapy and I will see the patient back in one month. Job ID: [id number] DocumentID: [id number] Dictated Date: 03/08/2019 16:21:55 Solvent Plant Operator Date: 03/08/2019 17:05:47 Dictated By: MEHRDAD AMARAL MD <Dictated by MEHRDAD AMARAL MD> <Electronically signed by MEHRDAD AMARAL MD> 03/09/19 0929
== END 2019-03-12 12:30 | disposition home or self-care (01) ==
LOC: ENDO 09:02
PROVIDERS: ATTEND Internal Medicine
DX: K25.4 Chronic or unspecified gastric ulcer with hemorrhage (principal); K29.80 Duodenitis without bleeding; D12.0 Benign neoplasm of cecum; D12.2 Benign neoplasm of ascending colon; D12.3 Benign neoplasm of transverse colon; K57.30 Diverticulosis of large intestine without perforation or abscess without bleeding; D50.9 Iron deficiency anemia, unspecified; N40.2 Nodular prostate without lower urinary tract symptoms; I69.351 Hemiplegia and hemiparesis following cerebral infarction affecting right dominant side; I69.320 Aphasia following cerebral infarction; I10 Essential (primary) hypertension; I25.10 Atherosclerotic heart disease of native coronary artery without angina pectoris; I73.9 Peripheral vascular disease, unspecified; Z79.02 Long term (current) use of antithrombotics/antiplatelets; Z79.82 Long term (current) use of aspirin; Z79.899 Other long term (current) drug therapy; Z87.891 Personal history of nicotine dependence

== ENCOUNTER 2019-04-05 12:30 | Emergency (ER) | payer OTHER, BC ==
[~2019-04-05] VITALS: Ht 182.9 cm; Wt 83.9 kg
[~2019-04-05 12:30] MED LIST changes: +CLOP75TA69 PO; +PANT40TA3 PO
--- OUTSIDE RECORDS SUMMARY | 2019-04-05 12:35 | XMS REPORT | Continuity of Care Document ---
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 OF ANTITHROMBOTI 01/23/2019 TIKI FLORESP [...] BOOGIE Ot I25.10 ATHSCL HEART DISEASE OF [place] CORONARY 02/08/2019 WHITTEN DO, BOOGIE Ot I69.320 [...] BOOGIE Ot I25.10 ATHSCL HEART DISEASE OF [place] CORONARY 02/12/2019 WHITTEN DO, BOOGIE Ot I69.320 [...] BOOGIE Ot I25.10 ATHSCL HEART DISEASE OF [place] CORONARY 02/15/2019 WHITTEN DO, BOOGIE Ot I69.320 [...] BOOGIE Ot I25.10 ATHSCL HEART DISEASE OF [place] CORONARY 02/17/2019 WHITTEN DO, BOOGIE Ot I69.320 [...] Ot E78.5 HYPERLIPIDEMIA, UNSPECIFIED 02/22/2019 WHITTEN DO, BOOGEI Ot F32.9 MAJOR DEPRESSIVE DISORDER, SINGLE EPISOD 02/22/2019 WHITTEN DO, BOOGIE Ot I10 ESSENTIAL (PRIMARY) HYPERTENSION 02/22/2019 WHITTEN DO, BOOGIE Ot I25.10 ATHSCL HEART DISEASE OF [place] CORONARY 02/22/2019 WHITTEN DO, BOOGIE Ot I69.320 [...] BOOGIE Ot I25.10 ATHSCL HEART DISEASE OF [place] CORONARY 02/25/2019 WHITTEN DO, BOOGIE Ot I69.320 [...] BOOGIE Ot I25.10 ATHSCL HEART DISEASE OF [place] CORONARY 03/01/2019 WHITTEN DO, BOOGIE Ot I69.320 [...] BOOGIE Ot I25.10 ATHSCL HEART DISEASE OF [place] CORONARY 03/01/2019 WHITTEN DO, BOOGIE Ot I69.320 [...] BOOGIE Ot I25.10 ATHSCL HEART DISEASE OF [place] CORONARY 03/01/2019 WHITTEN DO, BOOGIE Ot I69.320 [...] DYSPHAGIA, UNSPECIFIED 03/01/2019 WHITTEN DO, BOOGIE Ot R19.5 OTHER FECAL ABNORMALITIES 03/01/2019 WHITTEN DO, BOOGIE Ot R33.9 RETENTION OF URINE, UNSPECIFIED 03/01/2019 WHITTEN DO, BOOGIE Ot Z87.891 PERSONAL HISTORY OF NICOTINE DEPENDENCE 03/11/2019 MEHRDAD AMARAL MD Ot Z01.818 ENCOUNTER FOR OTHER PREPROCEDURAL EXAMIN 03/16/2019 MEHRDAD AMARAL MD Ot I69.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 03/16/2019 MEHRDAD AMARAL MD Ot I69.351 HEMIPLGA FOLLOWING CEREBRAL INFRC AFF RI 03/16/2019 MEHRDAD AMARAL MD Ot I69.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 03/16/2019 MEHRDAD AMARAL MD, Ot I69.351 HEMIPLGA FOLLOWING CEREBRAL INFRC AFF RI 03/17/2019 MEHRDAD AMARAL MD Ot D12.0 BENIGN NEOPLASM OF CECUM 03/17/2019 MEHRDAD AMARAL MD Ot D12.2 BENIGN NEOPLASM OF ASCENDING COLON 03/17/2019 MEHRDAD AMARAL MD Ot D12.3 BENIGN NEOPLASM OF TRANSVERSE COLON 03/17/2019 MEHRDAD AMARAL MD Ot D50.9 IRON DEFICIENCY ANEMIA, UNSPECIFIED 03/17/2019 MEHRDAD AMARAL MD Ot I10 ESSENTIAL (PRIMARY) HYPERTENSION 03/17/2019 MEHRDAD AMARAL MD Ot I25.10 ATHSCL HEART DISEASE OF [place] CORONARY 03/17/2019 MEHRDAD AMARAL MD Ot I69.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 03/17/2019 MEHRDAD AMARAL MD Ot I69.351 HEMIPLGA FOLLOWING CEREBRAL INFRC AFF RI 03/17/2019 MEHRDAD AMARAL MD Ot I73.9 PERIPHERAL VASCULAR DISEASE, UNSPECIFIED 03/17/2019 MEHRDAD AMARAL MD Ot K25.4 CHRONIC OR UNSPECIFIED GASTRIC ULCER WIT 03/17/2019 MEHRDAD AMARAL MD Ot K29.80 DUODENITIS WITHOUT BLEEDING 03/17/2019 MEHRDAD AMARAL MD Ot K57.30 DVRTCLOS OF LG INT W/O PERFORATION OR AB 03/17/2019 MEHRDAD AMARAL MD Ot N40.2 NODULAR PROSTATE WITHOUT LOWER URINARY T 03/17/2019 MEHRDAD AMARAL MD Ot Z79.02 SENIOR ENTERPRISE ARCHITECT (CURRENT) USE OF ANTITHROMBOTI 03/17/2019 MEHRDAD AMARAL MD Ot Z79.82 JAIL (CURRENT) USE OF ASPIRIN 03/17/2019 MEHRDAD AMARAL MD Ot Z79.899 OTHER SENIOR ENTERPRISE ARCHITECT (CURRENT) DRUG THERAPY 03/17/2019 MEHRDAD AMARAL MD, Ot Z87.891 PERSONAL HISTORY OF NICOTINE DEPENDENCE Procedures Code Description Performed By Performed On [id number] INSPECTION OF BLADDER, ENDO 02/03/2019 Results Test [...] Automated erythrocyte mean corpuscular hemoglobin concentration measurement (mass/volume) 34 g/dL 32-36 Automated erythrocyte distribution width ratio 14.0 % 10.0- 14.5 Automated blood platelet count (count/volume) 292 10*3/uL [...] Blood monocytes automated count (number/volume) 0.6 10*3 0.0- 1.0 Automated eosinophil count 0.2 10*3/uL 0.0-0.3 Automated [...] measurement in platelet poor plasma (mass/volume) - 01/23/19 18:25 Fibrin D-dimer FEU measurement in platelet poor plasma (mass/volume) 0.54 ug/mL 0.00-0.49 Complete urinalysis with reflex to culture - 01/23/19 18:25 Urine color determination YELLOW NRG Urine clarity determination CLEAR NRG Urine pH measurement by test strip 6 5-9 Specific gravity of urine by test strip 1.010 1.016-1.022 Urine protein assay by test strip, semi-quantitative [...] sediment leukocyte count by microscopy (number/high power field) NONE NRG Bacteria detection in urine sediment [...] Serum or plasma aspartate aminotransferase measurement (enzymatic activity/volume) 17 U/L 5-34 Serum or plasma alanine aminotransferase measurement (enzymatic activity/volume) 19 U/L 0-55 Serum or plasma protein measurement (mass/volume) 8.1 g/dL 6.4-8.2 Serum or plasma albumin measurement (mass/volume) 4.4 g/dL 3.2-4.5 CALCIUM CORRECTED 9.4 mg/dL 8.5-10.1 Serum or plasma troponin i.cardiac measurement (mass/volume) - 01/23/19 18:25 Serum or plasma troponin i.cardiac measurement (mass/volume) < ng/mL <0.028 Capillary blood glucose measurement by glucometer (mass/volume) - 01/23/19 18:49 Capillary blood glucose measurement by glucometer (mass/volume) [...] Automated erythrocyte mean corpuscular hemoglobin concentration measurement (mass/volume) 33 g/dL 32-36 Automated erythrocyte distribution width ratio 14.0 % 10.0- 14.5 Automated blood platelet count (count/volume) 297 10*3/uL [...] Blood monocytes automated count (number/volume) 1.1 10*3 0.0- 1.0 Automated eosinophil count 0.4 10*3/uL 0.0-0.3 Automated [...] Serum or plasma aspartate aminotransferase measurement (enzymatic activity/volume) 23 U/L 5-34 Serum or plasma alanine aminotransferase measurement (enzymatic activity/volume) 18 U/L 0-55 Serum or plasma protein measurement (mass/volume) 6.6 g/dL 6.4-8.2 Serum or plasma albumin measurement (mass/volume) 3.6 g/dL 3.2-4.5 CALCIUM CORRECTED 9.8 mg/dL 8.5-10.1 Serum iron and total iron binding capacity panel - 01/28/19 06:05 Serum or plasma iron measurement (mass/volume) 20 % 40-180 Total iron binding capacity and transferrin saturation measurement 8 % 15-50 Iron binding capacity [mass/volume] in serum or plasma 242 % 280-380 UIBC (unsaturated iron binding capacity) 222 % 55-450 Serum or plasma ferritin measurement (mass/volume) 196.4 % 32.0-356.0 Methicillin resistant Staphylococcus aureus (MRSA) screening culture - 02/02/19 11:45 Methicillin resistant Staphylococcus aureus (MRSA) screening [...] Automated erythrocyte mean corpuscular hemoglobin concentration measurement (mass/volume) 34 g/dL 32-36 Automated erythrocyte distribution width ratio 13.8 % 10.0- 14.5 Automated blood platelet count (count/volume) 412 10*3/uL [...] Blood monocytes automated count (number/volume) 0.9 10*3 0.0- 1.0 Automated eosinophil count 0.2 10*3/uL 0.0-0.3 Automated [...] Serum or plasma aspartate aminotransferase measurement (enzymatic activity/volume) 32 U/L 5-34 Serum or plasma alanine aminotransferase measurement (enzymatic activity/volume) 47 U/L 0-55 Serum or plasma protein [...] Automated erythrocyte mean corpuscular hemoglobin concentration measurement (mass/volume) 33 g/dL 32-36 Automated erythrocyte distribution width ratio 13.8 % 10.0- 14.5 Automated blood platelet count (count/volume) 336 10*3/uL [...] Blood monocytes automated count (number/volume) 0.7 10*3 0.0- 1.0 Automated eosinophil count 0.2 10*3/uL 0.0-0.3 Automated [...] Serum or plasma aspartate aminotransferase measurement (enzymatic activity/volume) 20 U/L 5-34 Serum or plasma alanine aminotransferase measurement (enzymatic activity/volume) 36 U/L 0-55 Serum or plasma protein [...] Automated erythrocyte mean corpuscular hemoglobin concentration measurement (mass/volume) 33 g/dL 32-36 Automated erythrocyte distribution width ratio 13.8 % 10.0- 14.5 Automated blood platelet count (count/volume) 247 10*3/uL [...] Blood monocytes automated count (number/volume) 0.6 10*3 0.0- 1.0 Automated eosinophil count 0.2 10*3/uL 0.0-0.3 Automated [...] Serum or plasma aspartate aminotransferase measurement (enzymatic activity/volume) 25 U/L 5-34 Serum or plasma alanine aminotransferase measurement (enzymatic activity/volume) 41 U/L 0-55 Serum or plasma protein [...] Automated erythrocyte mean corpuscular hemoglobin concentration measurement (mass/volume) 32 g/dL 32-36 Automated erythrocyte distribution width ratio 13.8 % 10.0- 14.5 Automated blood platelet count (count/volume) 249 10*3/uL [...] Blood monocytes automated count (number/volume) 0.7 10*3 0.0- 1.0 Automated eosinophil count 0.2 10*3/uL 0.0-0.3 Automated [...] Serum or plasma aspartate aminotransferase measurement (enzymatic activity/volume) 21 U/L 5-34 Serum or plasma alanine aminotransferase measurement (enzymatic activity/volume) 39 U/L 0-55 Serum or plasma protein measurement (mass/volume) 6.3 g/dL 6.4-8.2 Serum or plasma albumin measurement (mass/volume) 3.5 g/dL 3.2-4.5 CALCIUM CORRECTED 10.0 mg/dL 8.5-10.1 Encounters ACCT No. Visit Date/Time Discharge Status Pt. Type Provider Facility Loc./Unit Complaint [id number] 04/01/2019 13:26:00 04/01/2019 23:59:59 CLS Outpatient MEHRDAD AMARAL MD [facility] REHAB CVA [id number] 03/12/2019 09:02:00 03/12/2019 12:30:00 DIS Outpatient MEHRDAD AMARAL MD [facility] ENDO FE DEFICIENCY ANEMIA/OCCULT+ BLOOD [id number] 03/11/2019 05:43:00 03/11/2019 10:12:00 DIS Outpatient MEHRDAD AMARAL MD [facility] PREOP COLONOSCOPY/POSS EGD [id number] 01/27/2019 16:40:00 03/01/2019 17:50:00 DIS Inpatient WHITTENBOOGIE HAILE DO [facility] IRF CVA [id number] 01/23/2019 18:20:00 01/23/2019 19:32:00 DIS Emergency TIKI FLORES [facility] ER STROKE LIKE SYMPTOMS [id number] 04/01/2014 15:11:00 04/01/2014 17:26:00 DIS Emergency RADHA MCCLENDON MD [facility] ER FALL
[2019-04-05 12:49] LABS: BASOPHILS # (AUTO) 0.1 10^3/uL (0.0-0.1); BASOPHILS % (AUTO) 1 % (0-10); EOSINOPHILS # (AUTO) 0.2 10^3/uL (0.0-0.3); EOSINOPHILS % (AUTO) 2 % (0-10); HEMATOCRIT 37 % (40-54); HEMOGLOBIN 12.2 G/DL (13.3-17.7); LYMPHOCYTES # (AUTO) 2.1 X 10^3 (1.0-4.0); LYMPHOCYTES % (AUTO) 23 % (12-44); MEAN CORPUSCULAR HGB CONC 33 G/DL (32-36); MEAN CORPUSCULAR VOLUME 84 FL (80-99); MEAN PLATELET VOLUME 9.9 FL (7.4-10.4); MONOCYTES # (AUTO) 0.4 X 10^3 (0.0-1.0); MONOCYTES % (AUTO) 5 % (0-12); NEUTROPHILS # (AUTO) 6.3 X 10^3 (1.8-7.8); NEUTROPHILS % (AUTO) 69 % (42-75); PLATELET COUNT 348 10^3/uL (130-400); RED CELL DISTRIBUTION WIDTH 14.1 % (10.0-14.5)
[2019-04-05 12:54] LABS: MEAN CORPUSCULAR HEMOGLOBIN 27 PG (25-34)
[2019-04-05 13:00] LABS: ALANINE AMINOTRANSFERASE 32 U/L (0-55); ALBUMIN 3.9 GM/DL (3.2-4.5); ALKALINE PHOSPHATASE 95 U/L (40-136); BILIRUBIN,TOTAL 0.4 MG/DL (0.1-1.0); BUN/CREATININE RATIO 9; CALCIUM 9.9 MG/DL (8.5-10.1); CARBON DIOXIDE 20 MMOL/L (21-32); CHLORIDE 109 MMOL/L (98-107); CREATININE SERUM 1.09 MG/DL (0.60-1.30); GFR ESTIMATED > 60; GLUCOSE 148 MG/DL (70-105); POTASSIUM 4.2 MMOL/L (3.6-5.0); SODIUM 141 MMOL/L (135-145); TOTAL PROTEIN 7.5 GM/DL (6.4-8.2)
[2019-04-05] MEDS ORDERED: LACTATED RINGERS 1,000 ML IV ONE (13:26)
--- NOTE | 2019-04-05 13:34 | ED General ---
General Chief Complaint: General Problems/Pain Stated Complaint: WEAKNESS Nursing Triage Note: PTTO RM 10 WITH COMPLAINT OF WEAKNESS. STATES HE WAS GETTING DRESSED STARTED TO FEEL WEAK AND DIZZY. STATES HE BROKE OUT IN A COLD SWEAT. STATES WHEN SHE GOT HOME, PT WAS PALE. INITIAL BP FOR EMS WAS 80s/50s. PT IS A&O X4 ON ARRIVAL TO ER. Nursing Sepsis Screen: No Definite Risk Source of Information: Patient, EMS, Family, Old Records Exam Limitations: No Limitations History of Present Illness Date Seen by Provider: Apr 05, 2019 Time Seen by Provider: 12:42 Initial Comments This 64 gentleman presents to the emergency room via EMS due to an episode of weakness, dizziness, and diaphoresis at home. EMS was activated by his . EMS reports hypotension. IV fluids were initiated. By the time of my assessment, patient was asymptomatic and had normal blood pressure. Patient denies any chest pain, shortness of air, fever, or other acute symptoms. Patient has history of CVA with chronic right-sided deficits which are presently unchanged. Patient has not observed any melena or hematochezia. Patient had an EGD and colonoscopy performed about 3 weeks ago. He did have hemorrhagic gastritis and some polyps removed. Allergies and Home Medications Allergies Coded Allergies: Penicillins (Unverified Allergy, Unknown, 01/23/19) Home Medications Amlodipine Besylate 5 Mg Tablet, 5 MG PO DAILY Prescribed by: BOOGIE WHITTEN on 02/28/19 1434 Atorvastatin Calcium 80 Mg Tablet, 80 MG PO HS Prescribed by: BOOGIE WHITTEN on 02/28/19 1434 Bethanechol Chloride 50 Mg Tablet, 50 MG PO ACHS Prescribed by: BOOGIE WHITTEN on 02/28/19 1434 Bisoprolol Fumarate 5 Mg Tablet, 5 MG PO DAILY Prescribed by: BOOGIE WHITTEN on 02/28/19 1434 Brinzolamide/Brimonidine Tart 8 Ml Drops.susp, 1 DROP OU TID, (Reported) Clopidogrel Bisulfate 75 Mg Tablet, 75 MG PO DAILY Resume plavix friday Prescribed by: MEHRDAD AMARAL on 03/12/19 1142 Ferrous Sulfate 325 Mg Tablet, 325 MG PO DAILY@0700 Prescribed by: BOOGIE WHITTEN on 02/28/19 1434 Pantoprazole Sodium 40 Mg Tablet.dr, 40 MG PO DAILY Prescribed by: MEHRDAD AMARAL on 03/12/19 1146 Prednisolone Acetate 10 Ml Drops.susp, 1 DROP OU BID, (Reported) 1% Sertraline HCl 100 Mg Tablet, 100 MG PO DAILY Prescribed by: BOOGIE WHITTEN on 02/28/19 1434 Tamsulosin HCl 0.4 Mg Cap, 0.4 MG PO DAILY@1800 Prescribed by: BOOGIE WHITTEN on 02/28/19 1434 Patient Home Medication List Home Medication List Reviewed: Yes Review of Systems Review of Systems Constitutional: see HPI EENTM: no symptoms reported Respiratory: no symptoms reported Cardiovascular: see HPI Gastrointestinal: no symptoms reported Genitourinary: no symptoms reported Musculoskeletal: no symptoms reported Skin: no symptoms reported Psychiatric/Neurological: See HPI Hematologic/Lymphatic: No Symptoms Reported Immunological/Allergic: no symptoms reported Past Qvswkge-[id number]-Pxclmu Hx Past Med/Social Hx: Reviewed and Corrections made Patient Social History Alcohol Use: Occasionally Uses Number of Drinks Today: AA Alcohol Beverage of Choice: Beer Recreational Drug Use: No Smoking Status: Former Smoker Type Used: Cigarettes Former Smoker, Quit: Dec 31, 2007 Recent Foreign Travel: No Contact w/Someone Who Travel: No Recent Infectious Disease Expo: No Recent Hopitalizations: No Immunizations Up To Date Tetanus Booster (TDap): More than 5yrs PED Vaccines UTD: No Seasonal Allergies Seasonal Allergies: No Past Medical History Surgeries: Yes (LEFT TOTAL HIP, FEM POP BYPASS, CAROTID ENDARTERECTOMY) Orthopedic, Vascular Surgery (bilateral CEA) Respiratory: No Cardiac: Yes (FEM POP) Coronary Artery Disease, High Cholesterol, Hypertension, Peripheral Vascular Neurological: Yes Stroke (with residual right-sided deficits and mild expressive aphasia) Sexually Transmitted Disease: No HIV/AIDS: No Genitourinary: No Gastrointestinal: No Musculoskeletal: Yes (R sided muscle weakness r/t CVA) Arthritis Endocrine: No HEENT: Yes (CATARACTS REMOVED recently) Loss of Vision: Denies Hearing Impairment: Denies Cancer: No Psychosocial: Yes Depression Integumentary: No Blood Disorders: No (anemia) Family Medical History Reviewed Nursing Family Hx Completed stroke G8 SISTER Glaucoma 19 FATHER Hypertension 19 FATHER 19 MOTHER Kidney disease 19 FATHER Hypertension Physical Exam Vital Signs Vital Signs - First Documented 04/05/19 12:31 Temp 97.3 Pulse 57 Resp 16 B/P (MAP) 117/54 (75) Pulse Ox 98 O2 Delivery Room Air Capillary Refill : Less Than 3 Seconds Height, Weight, BMI Height: 6'0" Weight: 185lbs. 0.0oz. [id number]; 26.7 BMI Method:Stated General Appearance: No Apparent Distress, WD/WN HEENT: PERRL/EOMI, Normal ENT Inspection Neck: Normal Inspection Respiratory: Lungs Clear, Normal Breath Sounds, No Accessory Muscle Use, No Respiratory Distress Cardiovascular: Regular Rate, Rhythm, No Edema, No Murmur Gastrointestinal: Non Tender, Soft Extremity: Normal Inspection, No Pedal Edema Neurologic/Psychiatric: Alert, Oriented x3, Normal Mood/Affect, support specialist II-XII Norm as Tested, Motor Weakness (chronic right-sided weakness) Skin: Normal Color, Warm/Dry Progress/Results/Core Measures Suspected Sepsis Recent Fever Within 48 Hours: No Infection Criteria Present: None New/Unexplained Altered Menta: No Sepsis Screen: No Definite Risk SIRS Temperature:97.3 Pulse: 57 Respiratory Rate: 16 Laboratory Tests 04/05/19 12:36: White Blood Count 9.0 Blood Pressure 117 /54 Mean: 75 Laboratory Tests 04/05/19 12:36: Creatinine 1.09, Platelet Count 348, Total Bilirubin 0.4 Results/Orders Lab Results Laboratory Tests Test 04/05/19 12:36 04/05/19 12:42 04/05/19 16:15 Range/Units White Blood Count 9.0 4.3-11.0 10^3/uL Red Blood Count 4.44 4.35-5.85 10^6/uL Hemoglobin 12.2 L 13.3-17.7 G/DL Hematocrit 37 L 40-54 % Mean Corpuscular Volume 84 80-99 FL Mean Corpuscular Hemoglobin 27 25-34 PG Mean Corpuscular Hemoglobin Concent 33 32-36 G/DL Red Cell Distribution Width 14.1 10.0-14.5 % Platelet Count 348 130-400 10^3/uL Mean Platelet Volume 9.9 7.4-10.4 FL Neutrophils (%) (Auto) 69 42-75 % Lymphocytes (%) (Auto) 23 12-44 % Monocytes (%) (Auto) 5 0-12 % Eosinophils (%) (Auto) 2 0-10 % Basophils (%) (Auto) 1 0-10 % Neutrophils # (Auto) 6.3 1.8-7.8 X 10^3 Lymphocytes # (Auto) 2.1 1.0-4.0 X 10^3 Monocytes # (Auto) 0.4 0.0-1.0 X 10^3 Eosinophils # (Auto) 0.2 0.0-0.3 10^3/uL Basophils # (Auto) 0.1 0.0-0.1 10^3/uL Sodium Level 141 135-145 MMOL/L Potassium Level 4.2 3.6-5.0 MMOL/L Chloride Level 109 H 98-107 MMOL/L Carbon Dioxide Level 20 L 21-32 MMOL/L Anion Gap 12 5-14 MMOL/L Blood Urea Nitrogen 10 7-18 MG/DL Creatinine 1.09 0.60-1.30 MG/DL Estimat Glomerular Filtration Rate > 60 BUN/Creatinine Ratio 9 Glucose Level 148 H 70-105 MG/DL Calcium Level 9.9 8.5-10.1 MG/DL Corrected Calcium 10.0 8.5-10.1 MG/DL Magnesium Level 2.0 1.8-2.4 MG/DL Total Bilirubin 0.4 0.1-1.0 MG/DL Aspartate Amino Transf (AST/SGOT) 23 5-34 U/L Alanine Aminotransferase (ALT/SGPT) 32 0-55 U/L Alkaline Phosphatase 95 40-136 U/L Troponin I < 0.028 <0.028 NG/ML Total Protein 7.5 6.4-8.2 GM/DL Albumin 3.9 3.2-4.5 GM/DL Glucometer 139 H 70-110 MG/DL Urine Color YELLOW Urine Clarity CLEAR Urine pH 7 5-9 Urine Specific [place] 1.005 L 1.016-1.022 Urine Protein 2+ H NEGATIVE Urine Glucose (UA) NEGATIVE NEGATIVE Urine Ketones NEGATIVE NEGATIVE Urine Nitrite NEGATIVE NEGATIVE Urine Bilirubin NEGATIVE NEGATIVE Urine Urobilinogen NORMAL NORMAL MG/DL Urine Leukocyte Esterase NEGATIVE NEGATIVE Urine RBC (Auto) NEGATIVE NEGATIVE Urine RBC NONE /HPF Urine WBC NONE /HPF Urine Crystals NONE /LPF Urine Bacteria TRACE /HPF Urine Casts NONE /LPF Urine Mucus NEGATIVE /LPF Urine Culture Indicated NO My Orders Orders - JOSEPH CONCEPCION MD Ekg Tracing (04/05/19 13:25) Monitor-Rhythm Ecg Trace Only (04/05/19 13:25) Magnesium (04/05/19 13:26) Troponin I (04/05/19 13:26) Lactated Ringers (Lr 1000 Ml Iv Solution (04/05/19 13:26) Medications Given in ED Current Medications Medications Dose Ordered Sig/Paige Route Start Time Stop Time Status Last Admin Dose Admin Lactated Ringer's 1,000 ml @ 0 mls/hr Q0M ONCE IV 04/05/19 13:26 04/05/19 13:27 DC 04/05/19 13:59 1,000 MLS/HR Vital Signs/I&O 04/05/19 12:31 Temp 97.3 Pulse 57 Resp 16 B/P (MAP) 117/54 (75) Pulse Ox 98 O2 Delivery Room Air Capillary Refill : Less Than 3 Seconds Blood Pressure Mean: 75 Progress Note : Time: 16:54 Progress Note Patient received 2 L of IV fluids. Vital signs were normal throughout the remainder of his stay and he was asymptomatic. Workup was unremarkable. I suspect his symptoms were largely due to hypovolemia in the context of multiple antihypertensive medications including a beta bobo. Patient advised to follow-up with his primary care provider and drink plenty of clear liquids. ECG Initial ECG Impression Date: Apr 05, 2019 Initial ECG Impression Time: 13:44 Initial ECG Rate: 56 Initial ECG Rhythm: Normal Sinus Initial ECG Intervals: Normal Initial ECG Impression: Normal Comment Normal sinus rhythm with no ST elevation or depression. No abnormal intervals or axis deviation. Departure Impression Primary Impression: Generalized weakness Additional Impression: Hypotension Qualified Codes: I95.9 - Hypotension, unspecified Disposition: 01 HOME, SELF-CARE Condition: Improved Departure-Patient Inst. Decision time for Depature: 16:50 Referrals: MEHRDAD AMARAL MD (PCP/Family) Primary Care Physician Patient Instructions: NO INSTRUCTIONS GIVEN Add. Discharge Instructions: Drink plenty of clear liquids. Return to care if symptoms worsen again. Follow-up with your primary care provider within the next week. All discharge instructions reviewed with patient and/or family. Voiced und erstanding. Copy Copies To 1: MEHRDAD AMARAL MD, JOSHUA T MD Apr 05, 2019 13:34
--- NOTE | 2019-04-05 16:15 | NUR ---
PT ABLE TO GIVE UA AT THIS TIME, STANDING AT BEDSIDE UNDER HIS OWN POWER. 200 MLS DARK YELLOW URINE OUT.
[2019-04-05 16:27] LABS: BILIRUBIN,URINE NEGATIVE (NEGATIVE); CLARITY,URINE CLEAR; COLOR,URINE YELLOW; GLUCOSE, URINE (UA) NEGATIVE (NEGATIVE); KETONES,URINE NEGATIVE (NEGATIVE); LEUKOCYTE ESTERASE ,URINE NEGATIVE (NEGATIVE); NITRITE,URINE NEGATIVE (NEGATIVE); PH,URINE 7 (5-9); PROTEIN,URINE 2+ (NEGATIVE); UROBILINOGEN,URINE NORMAL (NORMAL)
[2019-04-05 16:41] LABS: BACTERIA,URINE TRACE /HPF
[2019-04-05 17:00] VITALS: BP 159/65
== END 2019-04-05 17:00 | disposition home or self-care (01) ==
LOC: EDUNIT# 12:30 → ER 12:31
DX: R53.1 Weakness (principal); I95.9 Hypotension, unspecified; I25.10 Atherosclerotic heart disease of native coronary artery without angina pectoris; E78.00 Pure hypercholesterolemia, unspecified; I10 Essential (primary) hypertension; I73.9 Peripheral vascular disease, unspecified; F32.9 Major depressive disorder, single episode, unspecified; Z82.49 Family history of ischemic heart disease and other diseases of the circulatory system; Z86.73 Personal history of transient ischemic attack (TIA), and cerebral infarction without residual deficits; Z88.0 Allergy status to penicillin; Z79.52 Long term (current) use of systemic steroids; Z79.02 Long term (current) use of antithrombotics/antiplatelets; Z87.891 Personal history of nicotine dependence; Z96.642 Presence of left artificial hip joint; Z95.820 Peripheral vascular angioplasty status with implants and grafts
CPT/HCPCS: 36415; 80053; 81000; 82962; 83735; 84484; 85025; 93005; 93041; 96360; 96361

== ENCOUNTER → 2019-05-03 | Outpatient (CLI) | payer OTHER, BC ==
--- NOTE | 2019-05-03 13:40 | Diagnostic Imaging Report ---
EXAMINATION: Magnetic resonance imaging of the right shoulder without contrast. DATE: May 03, 2019. COMPARISON: None. HISTORY: 64-year-old male, right shoulder pain. TECHNIQUE: Magnetic Resonance Imaging sequences were performed of the shoulder without contrast. FINDINGS: ROTATOR CUFF, LIGAMENTS, TENDONS, AND MUSCLES: There is subscapularis tendinopathy with a small interstitial split tear of the subscapularis tendon. There is supraspinatus tendinopathy. The infraspinatus and teres minor tendons are intact. There is edema-like signal in the subscapularis muscle. There is no fatty muscle atrophy. LONG HEAD OF BICEPS: The long head of biceps tendon is partially medially subluxed and partially perched on the lesser tuberosity best illustrated on axial PD fat saturation sequence image 15. The long head of biceps tendon is otherwise intact. GLENOHUMERAL JOINT: The humeral head is well positioned relative to the glenoid. The labrum is grossly intact. There is no identified paralabral cyst. The articular cartilage is grossly intact. There is no joint effusion. ACROMIOCLAVICULAR JOINT: The acromioclavicular joint is normally aligned. The coracoclavicular and coracoacromial ligaments are intact. There are mild acromioclavicular degenerative changes without large undersurface osteophyte. There is a trace amount of fluid in the acromioclavicular joint. BONE: There is no os acromiale. Additional osseous morphology is unremarkable. There is no acute fracture, bone contusion, or evidence of osteonecrosis. BURSAE AND SOFT TISSUES: There is soft tissue edema along the course of the long head of biceps tendon. Additional bursal assessment is unremarkable. IMPRESSION: 1. Subscapularis tendinopathy with short segment interstitial split tear of the subscapularis tendon. There is edema like signal within the subscapularis muscle which may reflect a low-grade muscle strain. Early denervation related signal changes would be a differential diagnostic consideration. 2. The long head of biceps tendon is partially medially subluxed and perched on the lesser tuberosity. No tear or tendinopathy of the long head of biceps tendon. 3. Mild acromioclavicular degenerative changes without large undersurface osteophyte. 4. No acute fracture, bone contusion, or evidence of osteonecrosis. 5. Grossly intact labrum. Additional glenohumeral joint evaluation is unremarkable. Dictated by: Dictated on workstation # [id number]
== END ==
LOC: RAD 12:17
PROVIDERS: ATTEND Orthopaedic Surgery
DX: S46.011A Strain of muscle(s) and tendon(s) of the rotator cuff of right shoulder, initial encounter (principal); M75.81 Other shoulder lesions, right shoulder; M19.011 Primary osteoarthritis, right shoulder; M25.711 Osteophyte, right shoulder
CPT/HCPCS: 73221

== ENCOUNTER 2019-06-01 11:05 | Outpatient (CLI) | payer OTHER, BC ==
[~2019-06-01] VITALS: Ht 180.3 cm; Wt 82.1 kg
[2019-06-01 11:13] VITALS: BP 148/68
[2019-06-01] MEDS ORDERED: AMLO5TAB9 PO (13:44)
[2019-06-01] MEDS ORDERED: ASPI-586 PO (13:44)
[2019-06-01] MEDS ORDERED: BISO5TAB PO (13:44)
[2019-06-01] MEDS ORDERED: SERT100T8 PO (13:44)
[2019-06-01] MEDS ORDERED: ATOR80TA76 PO (13:44)
[2019-06-01] MEDS ORDERED: CLOP75TA28 PO (13:44)
[2019-06-01] MEDS ORDERED: TAMS0.4C98 PO (13:44)
[2019-06-01] MEDS ORDERED: PANT40TA3 PO (13:45)
== END 2019-06-01 11:25 | disposition home or self-care (01) ==
LOC: PREOP 11:05
PROVIDERS: ATTEND Orthopaedic Surgery
DX: Z01.818 Encounter for other preprocedural examination (principal); S43.431A Superior glenoid labrum lesion of right shoulder, initial encounter
CPT/HCPCS: 87081

== ENCOUNTER 2019-06-09 06:00 | Day surgery (SDC) | payer OTHER, BC ==
--- NOTE | 2019-05-31 09:12 | HISTORY AND PHYSICAL ---
DATE OF SERVICE: ADMISSION HISTORY AND PHYSICAL This will be for outpatient surgery on 06/09/2019, for right shoulder arthroscopy and biceps tenotomy. HISTORY: The patient is a 64-year-old gentleman with status post recent cerebrovascular accident with complaints of right-sided pain and weakness in his shoulder. The CVA did involve his right side; however, he reports no prior history of shoulder problems. He has had stiffness and pain in the shoulder and undergone extensive physical therapy. An MRI reveals medial subluxation of his biceps tendon with no full thickness rotator cuff tearing. Due to functional limitations, the patient has elected to proceed with surgical intervention. He understands that this may not alleviate his symptoms as some of his symptoms may be coming from his post cerebrovascular accident symptoms. REVIEW OF SYSTEMS: No chest pain, no shortness of breath, no dysuria. PAST MEDICAL HISTORY: 1. Cerebrovascular accident in 2019. 2. Hypertension. PAST SURGICAL HISTORY: Right lower extremity bypass, carotid stent, total hip arthroplasty. FAMILY HISTORY: Significant for cerebrovascular disease. PRIMARY CARE PROVIDER: Dr. Schultz. MEDICATIONS: 1. Plavix. 2. Bethanechol. 3. Iron. 4. Atorvastatin. 5. Tamsulosin. 6. Bisoprolol. 7. Azopt. ALLERGIES: ARE TO PENICILLIN. SOCIAL HISTORY: The patient is a former smoker and reports recreational alcohol use. MRI is as above. PHYSICAL EXAMINATION: GENERAL: The patient is a well-developed, well-nourished, in no acute distress. HEENT: Normocephalic and atraumatic. Pupils are equal, round and reactive to light. Oropharynx is clear. NECK: Supple. No lymphadenopathy. LUNGS: Clear to auscultation bilaterally. HEART: Regular rate and rhythm. ABDOMEN: Soft, nontender, nondistended. EXTREMITIES: The right shoulder demonstrates no atrophy. He has active forward elevation to 120 degrees, external rotation to 60 degrees compared to 80 degrees on the contralateral side. Internal rotation to his lower lumbar spine lacking four interspaces compared to the contralateral side. IMPRESSION: Right shoulder long head of biceps instability with adhesive capsulitis. PLAN: Right shoulder arthroscopy with biceps tenotomy and manipulation under anesthesia. The risks, benefits, options, ramifications and recovery were discussed at length with the patient, he understands and wishes to proceed. This will be for outpatient surgery. Date of service and surgery will be on 06/09/2019. Job ID: [id number] DocumentID: [id number] Dictated Date: 05/31/2019 07:57:48 Assembler Insulator Date: 05/31/2019 09:12:05 Dictated By: DRAKE HERNANDEZ MD
[2019-06-09] VITALS (14 sets, daily range): BP systolic 136–199; BP diastolic 65–93
[~2019-06-09] VITALS: Ht 180.3 cm; Wt 82.1 kg
[~2019-06-09 06:00] MED LIST changes: +ASPI-586 PO
[2019-06-09] MEDS ORDERED: LACTATED RINGERS 1,000 ML IV PRN (06:05)
[2019-06-09] MEDS ORDERED: CLINDAMYCIN 600 MG/50 ML IVPB 50 ML IV ONE (06:15)
[2019-06-09] MEDS ORDERED: MIDAZOLAM 2 MG/2 ML (VERSED) VIAL ONE (06:49)
[2019-06-09] MEDS ORDERED: DEXAMETHASONE 10 MG/ML (DECADRON) 1 ML VIAL ONE (06:49)
[2019-06-09] MEDS ORDERED: ONDANSETRON 4 MG/2 ML (SDV) Z0FRAN ONE (06:49)
[2019-06-09] MEDS ORDERED: LIDOCAINE PF 2% 5 ML (XYLOCAINE) VIAL ONE (06:49)
[2019-06-09] MEDS ORDERED: fentaNYL INJECTION 100 MCG/2 ML AMP ONE (06:49)
[2019-06-09] MEDS ORDERED: proPOfol 200 MG/20 ML (DIPRIVAN) VIAL IV ONE (06:49)
[2019-06-09] MEDS ORDERED: GLYCOPYRROLATE 0.2 MG/ML (ROBINUL) 2 ML VIAL ONE (06:57)
[2019-06-09] MEDS ORDERED: ROCURONIUM 10 MG/ML 5 ML SYRINGE IV ONE (06:57)
[2019-06-09] MEDS ORDERED: NEOSTIGMINE 3 MG/3 ML VIAL ONE (06:57)
[2019-06-09] MEDS ORDERED: morphine PF (DURAMORPH) 10 MG/10 ML AMP ONE (07:09)
[2019-06-09] MEDS ORDERED: BUPIVACAINE 0.25% 30 ML (SENSORCAINE) VIAL ONE (07:09)
[2019-06-09] MEDS ORDERED: SEVOFLURANE (ULTANE) 15 ML INHAL SOLN ONE (07:14)
--- NOTE | 2019-06-09 07:26 | Progress Note-Pre Operative ---
Pre-Operative Progress Note H&P Reviewed The H&P was reviewed, patient examined and no changes noted. Date Seen by Provider: Jun 09, 2019 Time Seen by Provider: 07:20 Date H&P Reviewed: Jun 09, 2019 Time H&P Reviewed: 07:11 Pre-Operative Diagnosis: right shoulder SLAP tear DRAKE HERNANDEZ MD Jun 09, 2019 07:26
--- NOTE | 2019-06-09 07:27 | Progress Note-Post Operative ---
Post-Operative Progess Note Surgeon (s)/Day Care Home Mother (s) Surgeon DRAKE HERNANDEZ MD Day Care Home Mother: Isiah Martinez Pre-Operative Diagnosis right shoulder SLAP tear Post-Operative Diagnosis right shoulder SLAP tear and adhesive capsulitis Procedure & Operative Findings Date of Procedure 06/09/19 Procedure Performed/Findings right shoulder arthroscopic biceps tenotomy and labral debridement and manipulation under anesthesia Anesthesia Type GETA Estimated Blood Loss Estimated blood loss (mL): minimal Specimens/Packing Specimens Removed none Packing: none DRAKE HERNANDEZ MD Jun 09, 2019 07:27
[2019-06-09] MEDS ORDERED: HYDROcodone/APAP 7.5 MG/325 MG (LORTAB, LORCET PLUS) TABLET PO PRN (07:30)
--- NOTE | 2019-06-09 08:28 | OPERATIVE REPORT ---
DATE OF SERVICE: 06/09/2019 PREOPERATIVE DIAGNOSES: 1. Right shoulder SLAP tear. 2. Right shoulder adhesive capsulitis. POSTOPERATIVE DIAGNOSES: 1. Right shoulder SLAP tear. 2. Right shoulder adhesive capsulitis. PROCEDURES: 1. Right shoulder arthroscopic biceps tenotomy. 2. Right shoulder arthroscopic labral debridement. 3. Right shoulder manipulation under anesthesia. SURGEON: Vinnie Warner MD FIBERGLASS ROLLER: Isiah Martinez, who assisted throughout the procedure and closed the incisions. ANESTHESIA: General endotracheal by Davide Madrigal CRNA. ESTIMATED BLOOD LOSS: Minimal. DRAINS: None. COMPLICATIONS: None. POSTOPERATIVE PLAN: Early range of motion with sling wear for comfort. The patient was transferred to the recovery room awake and in stable condition. STATEMENT OF MEDICAL NECESSITY: The patient is a 64-year-old right hand dominant gentleman, who sustained a cerebrovascular accident early this year. He had undergone extensive physical therapy, but developed stiffness in his shoulder. An MRI revealed a SLAP tear. He had failed to respond to extensive conservative measures and due to functional impairment and failure to improve with conservative measures, the patient elected to proceed with surgical intervention. Examination under anesthesia pre-manipulation revealed forward elevation of 120 degrees, post-manipulation of 170, external rotation pre-manipulation was 60 degrees, post-manipulation was 90, internal rotation improved from 30 to 70. Arthroscopic findings demonstrated type 2 SLAP tear with anterior labral flap just anterior to the biceps anchor. The remaining labrum was intact. The glenoid and humeral head demonstrated no gross chondral abnormalities. The rotator cuff was intact throughout. DESCRIPTION OF PROCEDURE: After risks and benefits of procedure were discussed and questions were answered, an informed consent was signed and placed on chart. The operative site was confirmed in the preoperative holding area initialed by the surgeon. The patient was transported to the operating room. After adequate levels of general endotracheal anesthetic were obtained, a timeout was called, confirming the operative site. Examination under anesthesia was performed and then gentle manipulation was performed while stabilizing the scapula. Forward elevation was performed until symmetric to the contralateral side. The arm was then brought to the side and external rotation was performed. The arm was then brought to 90 degrees of abduction and external rotation, followed by internal rotation were performed. The shoulder and upper extremity were then prepped and draped in the usual sterile fashion. The shoulder joint was injected with 20 mL of fluid. A standard posterior portal was placed under direct visualization. Anterior portal was created in the interval between biceps, subscapularis and glenoid. The biceps anchor was released and the stump was debrided with a shaver. The anterior labral flap was debrided with a shaver as well. Shoulder joint was copiously irrigated. The portal sites were closed with 4-0 nylon in simple interrupted fashion. Shoulder was injected with Duramorph. Portal sites were infiltrated with plain Marcaine. A soft dressing and sling were applied and the patient was transferred to the recovery room awake and in stable condition. Job ID: [id number] DocumentID: [id number] Dictated Date: 06/09/2019 08:15:33 Clinical Psychology Professor Date: 06/09/2019 08:27:28 Dictated By: VINNIE WARNER MD
[2019-06-09] MEDS ORDERED: ONDANSETRON 4 MG/2 ML (SDV) Z0FRAN IVP PRN (08:45)
[2019-06-09] MEDS ORDERED: PROMETHAZINE INJ 25 MG/ML (PHENERGAN) AMP IVP ONE (08:45)
[2019-06-09] MEDS ORDERED: MEPERIDINE (DEMEROL) INJ 50 MG/ML IVP ONE (08:45)
[2019-06-09] MEDS ORDERED: morphine INJ 10 MG/ML 1ML (SYR OR VIAL) IVP ONE (08:45)
[2019-06-09] MEDS ORDERED: hydrALAZINE (APESOLINE) 20 MG/ML VIAL ONE (09:06)
[2019-06-09] MEDS: hydrALAZINE (APESOLINE) 20 MG/ML VIAL IV PRN ×2 (09:15→09:25)
--- NOTE | 2019-06-09 09:52 | Anesthesia-General Post-Op ---
General Patient Condition Mental Status/LOC: Same as Preop Cardiovascular: Satisfactory Nausea/Vomiting: Absent Respiratory: Satisfactory Pain: Controlled Complications: Absent Post Op Complications Complications None Follow Up Care/Instructions Patient Instructions None needed. Anesthesia/Patient Condition Patient Condition Patient is doing well, no complaints, stable vital signs, no apparent adverse anesthesia problems. No complications reported per nursing. MILES WHITE CRNA Jun 09, 2019 09:52
[2019-06-09] MEDS ORDERED: HYDR-3816 PO ×2 (10:23)
--- NOTE | 2019-06-09 10:45 | NUR ---
PATIENT WHEEZING ON ROOM AIR SATURATIONS AT 96%, THIS RN INFORMED TRAV ALLISON CRNA OF WHEEZING AND GAVE VERBAL ORDER FOR ALBUTEROL TREATMENT. THIS RN INFORMED RT NINA TO GIVE TREATMENT AND ORDERED AND INCENTIVE SPIROMETRY FOR HOME. PATIENT WHEEZING BETTER AFTER TREATMENT AND INSTRUCTED ON IS.
[2019-06-09] MEDS ORDERED: RT-ALBUTEROL SULF 2.5 MG/3 ML PRE-MIX VIAL INH ONE (11:00)
--- NOTE | 2019-06-09 11:25 | NUR ---
SHAYE RAVI HAD BEEN TO CHECK ON PATIENT. THIS RN ASKED IF ALRIGHT FOR TO CONTINUE WITH DISCHARGE. SHAYE RAVI GAVE VERBAL ORDER TO DISCHARGE.
== END 2019-06-09 11:32 | disposition home or self-care (01) ==
LOC: SDC 06:00
PROVIDERS: ATTEND Orthopaedic Surgery
DX: S43.431A Superior glenoid labrum lesion of right shoulder, initial encounter (principal); M75.01 Adhesive capsulitis of right shoulder; I10 Essential (primary) hypertension; I73.9 Peripheral vascular disease, unspecified; E78.5 Hyperlipidemia, unspecified; I63.9 Cerebral infarction, unspecified; F32.9 Major depressive disorder, single episode, unspecified; Z88.0 Allergy status to penicillin; Z86.73 Personal history of transient ischemic attack (TIA), and cerebral infarction without residual deficits; Z79.899 Other long term (current) drug therapy; Z87.891 Personal history of nicotine dependence
CPT/HCPCS: 94640; 94664

== ENCOUNTER 2019-06-10 13:00 | Outpatient (RCR) | payer OTHER, BC ==
[~2019-06-10 13:00] MED LIST changes: +HYDR-3816 PO
== END 2019-06-10 13:45 | disposition home or self-care (01) ==
PROVIDERS: ATTEND Orthopaedic Surgery
DX: I69.351 Hemiplegia and hemiparesis following cerebral infarction affecting right dominant side (principal); I69.320 Aphasia following cerebral infarction

== ENCOUNTER 2019-09-07 13:41 | Outpatient (RCR) | payer OTHER, BC | END 2019-09-08 | disposition home or self-care (01) | PROVIDERS: ATTEND Orthopaedic Surgery | DX: M25.511 Pain in right shoulder (principal); Z86.73 Personal history of transient ischemic attack (TIA), and cerebral infarction without residual deficits ==

== ENCOUNTER 2019-09-14 12:54 | Outpatient (RCR) | payer OTHER, BC | END 2019-09-14 14:33 | disposition home or self-care (01) | PROVIDERS: ATTEND Orthopaedic Surgery | DX: M25.511 Pain in right shoulder (principal); Z86.73 Personal history of transient ischemic attack (TIA), and cerebral infarction without residual deficits ==

== ENCOUNTER → 2022-10-31 | Outpatient (CLI) | payer MEDICARE, OTHER ==
[~2022-10-31] MED LIST changes: +AMLO-250 PO; +AMLO-251 PO; -AMLO10TA7 PO; -AMLO5TAB9 PO; -BISO5TAB PO; +CLOP-31 PO; -CLOP75TA69 PO; +HYDR-34 PO; -HYDR-3816 PO; +NF-BISOP5 PO; -PANT40TA3 PO; +PANT40TA52 PO; +SERT-414 PO; -SERT100T8 PO; -TAMS0.4C98 PO; +TMSL.4C PO
== END ==
LOC: CARD 10:57
PROVIDERS: ATTEND Nurse Practitioner Family
DX: I49.9 Cardiac arrhythmia, unspecified (principal)
CPT/HCPCS: 93005

== ENCOUNTER → 2022-11-08 | Outpatient (CLI) | payer MEDICARE, OTHER | LOC: CARD 11:25 | PROVIDERS: ATTEND Nurse Practitioner Family | DX: I08.0 Rheumatic disorders of both mitral and aortic valves (principal); I48.91 Unspecified atrial fibrillation | CPT/HCPCS: 93306 ==

== ENCOUNTER → 2022-11-26 | Outpatient (RCR) | payer MEDICARE, OTHER | END | disposition home or self-care (01) | PROVIDERS: ATTEND Nurse Practitioner Family | DX: I69.351 Hemiplegia and hemiparesis following cerebral infarction affecting right dominant side (principal); I10 Essential (primary) hypertension ==

== ENCOUNTER 2022-12-19 10:21 | Outpatient (RCR) | payer MEDICARE, OTHER | END 2022-12-19 17:00 | disposition home or self-care (01) | PROVIDERS: ATTEND Nurse Practitioner Family | DX: I69.351 Hemiplegia and hemiparesis following cerebral infarction affecting right dominant side (principal); I10 Essential (primary) hypertension ==

== ENCOUNTER → 2023-01-27 | Outpatient (CLI) | payer MEDICARE, OTHER ==
--- NOTE | 2023-01-27 12:33 | Diagnostic Imaging Report ---
PROCEDURE: US right lower extremity venous. TECHNIQUE: Multiple real-time grayscale images were obtained over the right lower extremity in various projections. Additional spectral analysis and color Doppler duplex images were also obtained. INDICATION: Right lower extremity edema. COMPARISON: Non available. FINDINGS: The right common femoral, femoral and popliteal veins are patent by color doppler imaging and without DVT. Visualized proximal aspects of the greater saphenous, deep femoral, posterior tibial and peroneal veins are also patent. All of the evaluated deep venous structures demonstrate normal compressibility and waveform augmentation where applicable. IMPRESSION: No right lower extremity deep venous thrombosis (DVT). Dictated by: Dictated on workstation # [id number]
== END ==
LOC: RAD 11:10
PROVIDERS: ATTEND Nurse Practitioner Family
DX: M79.604 Pain in right leg (principal); R60.0 Localized edema

== ENCOUNTER 2023-04-10 13:08 | Emergency (ER) | payer MEDICARE, OTHER ==
[~2023-04-10] VITALS: Ht 182 cm; Wt 77.0 kg
--- NOTE | 2023-04-10 13:31 | ED Neurological Problem ---
General Chief Complaint: Neurological Problems Stated Complaint: RT ARM NUMBNESS | PREVIOUS STROKE 4 YRS AGO Nursing Triage Note: Pt here with right arm numbness; states onset was 2 days ago. Pt has a hx of CVA with right side deficits. Pt is A&O at baseline according to his and has no other complaints. Source: patient, family () Exam Limitations: physical impairment (patient post stroke) History of Present Illness Date Seen by Provider: Apr 10, 2023 Time Seen by Provider: 13:20 Initial Comments Patient is a 68-year-old male who presents to the emergency department with a chief complaint of right arm numbness. He alerted his today that his right arm was bothering him. He then told her it had been about 2 days that he had decreased sensation. She called their primary care provider and they instructed her to bring him to the emergency department. Patient has a history of debilitating stroke approximately 4 years ago, seen at this facility and flown to . It sounds like he had clot retrieval at that time. He also have right carotid surgery. He had previously had the left done. Remote smoker. History of A-fib and hypertension chronically anticoagulated on Xarelto. He states that he has not missed or skipped any doses. He has chronic residual weakness in the right arm and right leg. He does have some dysarthria as a result of the stroke. He denies any vision changes today he denies headache or swallowing difficulties. No chest pain or shortness of breath. No abdominal pain, nausea or vomiting. His states he chronically drags his right leg when he walks. He states that the right arm feels different than the left arm but can feel when I touch his arm. Decreased fine motor skill in the right hand. Has gross motor movement at the shoulder, elbow wrist and fingers. No recent illnesses. No recent falls or head injury reported by the patient. Timing/Duration: other (2 days) Allergies and Home Medications Allergies Coded Allergies: Penicillins (Unverified Allergy, Unknown, 06/09/19) Patient Home Medication List Home Medication List Reviewed: Yes Atorvastatin Calcium (Atorvastatin Calcium) 80 Mg Tablet, 80 MG PO HS, (Reported) Entered as Reported by: RONY BECERRA on 06/01/19 1344 Bisoprolol Fumarate (Bisoprolol Fumarate) 5 Mg Tablet, 5 MG PO DAILY, (Reported) Entered as Reported by: RONY BECERRA on 06/01/19 1344 Brinzolamide/Brimonidine Tart (Simbrinza 1%-0.2% Eye Drops) 8 Ml Drops.susp, 1 DROP OU TID, (Reported) Entered as Reported by: MANI BLANKENSHIP on 01/27/19 1511 Clopidogrel Bisulfate (Clopidogrel) 75 Mg Tablet, 75 MG PO DAILY, (Reported) Entered as Reported by: RONY BECERRA on 06/01/19 1344 Hydrocodone Bit/Acetaminophen (HYDROcodone/APAP 7.5/325 TAB) 1 Each Tablet, 1 TAB PO Q4H Prescribed by: JUAN SILVERMAN on 06/09/19 1023 Sertraline HCl (Sertraline HCl) 100 Mg Tablet, 100 MG PO DAILY, (Reported) Entered as Reported by: RONY BECERRA on 06/01/19 1344 Review of Systems Review of Systems Constitutional: see HPI Eyes: No Symptoms Reported Ears, Nose, Mouth, Throat: no symptoms reported Respiratory: no symptoms reported Cardiovascular: no symptoms reported Gastrointestinal: no symptoms reported Genitourinary: no symptoms reported Musculoskeletal: no symptoms reported Skin: no symptoms reported Psychiatric/Neurological: Other (numbness right arm) All Other Systems Reviewed Negative Unless Noted: Yes Past Tmmnfux-[id number] Hx Immunizations Up To Date Tetanus Booster (TDap): More than 5yrs PED Vaccines UTD: No Seasonal Allergies Seasonal Allergies: No Past Medical History Surgeries: Yes (LEFT TOTAL HIP, FEM POP BYPASS, BILAT CAROTID ENDARTERECTOMY) Orthopedic, Vascular Surgery Respiratory: No Cardiac: Yes (FEM POP) Coronary Artery Disease, High Cholesterol, Hypertension, Peripheral Vascular Neurological: Yes (Right side weakness) Stroke Sexually Transmitted Disease: No HIV/AIDS: No Genitourinary: No Gastrointestinal: No Musculoskeletal: Yes (R sided muscle weakness r/t CVA) Arthritis Endocrine: No HEENT: Yes (CATARACTS REMOVED recently) Loss of Vision: Denies Hearing Impairment: Denies Cancer: No Psychosocial: Yes Depression Integumentary: No Blood Disorders: No (anemia) Family Medical History Completed stroke G8 SISTER Glaucoma 19 FATHER Hypertension 19 FATHER 19 MOTHER Kidney disease 19 FATHER Hypertension Physical Exam Vital Signs Vital Signs - First Documented 04/10/23 13:16 Temp 36.2 Pulse 100 Resp 18 B/P (MAP) 171/111 (131) Pulse Ox 100 Capillary Refill : Less Than 3 Seconds Height, Weight, BMI Height: 5'11.00" Weight: 181lbs. 0.0oz. 82.791339go; 23.00 BMI Method:Stated General Appearance: WD/WN, no apparent distress HEENT: PERRL/EOMI, pharynx normal Neck: normal inspection Respiratory: lungs clear, normal breath sounds, no respiratory distress, no accessory muscle use Cardiovascular: tachycardia (108), irregularly irregular Peripheral Pulses: 2+ Radial Pulses (R), 2+ Radial Pulses (L) Gastrointestinal: non tender, soft Extremities: non-tender, normal inspection, no pedal edema, no calf tenderness, normal capillary refill Neurologic/Psychiatric: alert, normal mood/affect, oriented x 3, motor weakness (chronic RUE), sensory deficit (RUE) Crainal Nerves: normal hearing, PERRL; No abnormal eye position, No abnormal pupil position; abnormal speech (chronic); No facial droop, No facial paresthesias, No facial weakness, No gaze palsy, No tongue deviation to R, No tongue deviation to L Motor/Sensory: no motor deficit, sensory deficit (RUE), weak motor strength RUE Skin: normal color, warm/dry Progress/Results/Core Measures Results/Orders Lab Results Laboratory Tests Test 04/10/23 13:27 04/10/23 13:35 04/10/23 13:36 Range/Units White Blood Count 7.0 4.3-11.0 10^3/uL Red Blood Count 4.71 4.30-5.52 10^6/uL Hemoglobin 13.9 13.3-17.7 g/dL Hematocrit 43 40-54 % Mean Corpuscular Volume 91 80-99 fL Mean Corpuscular Hemoglobin 30 25-34 pg Mean Corpuscular Hemoglobin Concent 33 32-36 g/dL Red Cell Distribution Width 13.5 10.0-14.5 % Platelet Count 182 130-400 10^3/uL Mean Platelet Volume 9.3 9.0-12.2 fL Immature Granulocyte % (Auto) 0 % Neutrophils (%) (Auto) 70 42-75 % Lymphocytes (%) (Auto) 19 12-44 % Monocytes (%) (Auto) 8 0-12 % Eosinophils (%) (Auto) 2 0-10 % Basophils (%) (Auto) 1 0-10 % Neutrophils # (Auto) 4.9 1.8-7.8 10^3/uL Lymphocytes # (Auto) 1.4 1.0-4.0 10^3/uL Monocytes # (Auto) 0.5 0.0-1.0 10^3/uL Eosinophils # (Auto) 0.1 0.0-0.3 10^3/uL Basophils # (Auto) 0.0 0.0-0.1 10^3/uL Immature Granulocyte # (Auto) 0.0 0.0-0.1 10^3/uL Prothrombin Time 15.5 H 12.2-14.7 SEC INR Comment 1.2 0.8-1.4 Activated Partial Thromboplast Time 34 24-35 SEC D-Dimer 0.32 0.00-0.49 UG/ML Sodium Level 134 L 135-145 MMOL/L Potassium Level 4.3 3.6-5.0 MMOL/L Chloride Level 101 98-107 MMOL/L Carbon Dioxide Level 24 21-32 MMOL/L Anion Gap 9 5-14 MMOL/L Blood Urea Nitrogen 9 7-18 MG/DL Creatinine 0.99 0.60-1.30 MG/DL Estimat Glomerular Filtration Rate 82 BUN/Creatinine Ratio 9 Glucose Level 95 70-105 MG/DL Calcium Level 9.7 8.5-10.1 MG/DL Corrected Calcium 9.4 8.5-10.1 MG/DL Total Bilirubin 0.9 0.1-1.0 MG/DL Aspartate Amino Transf (AST/SGOT) 40 H 5-34 U/L Alanine Aminotransferase (ALT/SGPT) 66 H 0-55 U/L Alkaline Phosphatase 70 40-136 U/L Troponin I < 0.028 <0.028 NG/ML Total Protein 7.8 6.4-8.2 GM/DL Albumin 4.4 3.2-4.5 GM/DL Glucometer 93 70-110 MG/DL Urine Color YELLOW Urine Clarity CLEAR Urine pH 6.5 5-9 Urine Specific Carlock <=1.005 1.016-1.022 Urine Protein NEGATIVE NEGATIVE Urine Glucose (UA) NEGATIVE NEGATIVE Urine Ketones NEGATIVE NEGATIVE Urine Nitrite NEGATIVE NEGATIVE Urine Bilirubin NEGATIVE NEGATIVE Urine Urobilinogen 0.2 < = 1.0 MG/DL Urine Leukocyte Esterase NEGATIVE NEGATIVE Urine RBC (Auto) NEGATIVE NEGATIVE Urine RBC NONE /HPF Urine WBC NONE /HPF Urine Squamous Epithelial Cells RARE /HPF Urine Crystals NONE /LPF Urine Bacteria NEGATIVE /HPF Urine Casts NONE /LPF Urine Mucus NEGATIVE /LPF Urine Culture Indicated NO My Orders Orders - BRADY DENNY MD Cbc With Automated Diff (04/10/23:) Protime With Inr (04/10/23 13:) Partial Thromboplastin Time (04/10/23:) Comprehensive Metabolic Panel (04/10/23:) Fibrin Degradation Products (04/10/23:) Troponin I [place] (04/10/23:) Ua Culture If Indicated (04/10/23:) Chest 1 View, Ap/Pa Only (04/10/23:) Ekg Tracing (04/10/23:) Nothing By Mouth (04/10/23 Lunch) Accucheck Stat ONCE (04/10/23:) Ed Iv/Invasive Line Start (04/10/23:) Ed Iv/Invasive Line Start (04/10/23:) Vital Signs Stroke Patient Q15M (04/10/23 13:26) Ct Head Wo-R/O Stroke (04/10/23:) O2 (04/10/23:) Monitor-Rhythm Ecg Trace Only (04/10/23:) Dysphagia Screening Tool Q10MX1 (04/10/23:) Post Thrombolytic Adminstratio (04/10/23:) Lipid Panel (04/11/23 06:00) Vital Signs/I&O 04/10/23 13:16 Temp 36.2 Pulse 100 Resp 18 B/P (MAP) 171/111 (131) Pulse Ox 100 Blood Pressure Mean: 131 Progress Progress Note : Time: 14:31 Progress Note Patient seen and evaluated by me. Evaluation today includes physical exam, CBC, coag profile, D-dimer, comprehensive metabolic panel, urinalysis, chest x-ray, EKG and CT headstroke protocol. Pertinent physical exam findings well- developed well-nourished male no acute distress slightly tachycardic at 108 noted A-fib on the monitoring analyst. Slightly hypertensive with a blood pressure in the 180s systolic. Alert, at his normal mental baseline per who is at the bedside. Slightly dysarthric due to residual stroke 4 years ago. Abdomen is soft nontender. He has subjective decrease sensation to the right upper extremity. Weakness to the right instrument and control service person, right biceps and triceps and shoulder girdle. Unable to perform shoulder shrug. Right leg strength 4 out of 5, left leg 5 out of 5. Normal sensation per patient in the lower extremities. Tongue is midline. No facial droop or anesthesia Differential diagnosis based on history and physical acute new CVA, peripheral neuropathy Labs, EKG and chest x-ray independently reviewed and interpreted by me. CT scan of the head read by radiologist as no acute focal stroke or hemorrhage. EKG shows atrial fibrillation at a rate of 104. Chest x-ray no focal infiltrates, effusions. CBC is normal, comprehensive metabolic panel shows slightly increased LFTs with an AST of 40 ALT of 66 otherwise completely within normal limits. Urinalysis is clear of infection and blood. D-dimer is 0.32. PT is 15.5 INR 1.2 PTT 34. Patient has been resting comfortably in the emergency department. No change in condition or new concerns. His blood pressure has come down to 160s systolic. Heart rate is in the 80s rate controlled. He actually states he feels like his arm is a little bit better. He has been up and ambulatory to the bathroom. I discussed patient's presentation, work-up and findings with his primary care provider, Dr. Schultz. Dr. Schultz is agreeable that the patient can be safely discharged home as his symptoms have been ongoing for 48 hours and no new concerning findings are found on CAT scan. He states he would be happy to follow the patient up outpatient in the clinic and would recommend the patient come back for any motor weakness that is new or concerning. His is concerned about his blood pressure being elevated at presentation. I recommended keeping a log of his blood pressure over the course of the next week until they follow-up with Dr. Schultz. Encouraged compliance with his medications. Both the patient and are comfortable with the plan of care. Verbal and written discharge and return precautions have been provided. All questions are sought and answered. Patient is stable for discharge. Initial ECG Impression Date: Apr 10, 2023 Initial ECG Impression Time: 13:33 Initial ECG Rate: 104 Initial ECG Rhythm: A Fib/Flutter Initial ECG Impression: Atrial Fibrillation w/RVR Diagnostic Imaging Diagonstic Imaging: Xray Comments [facility] [place] [place] NAME: BAILEY WEINSTEIN [facility] REC#: [id number] PT STATUS: REG ER : 1955 PHYSICIAN: BRADY DENNY MD ADMIT DATE: 04/10/23/ER Signed Date of Exam:04/10/23 CT HEAD WO-R/O STROKE CT HEAD WO-R/O STROKE Date: 04/10/2023 2:00 PM Clinical Indication: Right arm numbness Comparison: CT of the head 01/23/2019. Technique: 5 mm axial tomographic images were obtained of the head without contrast. These were viewed on brain and bone windows. One or more of the following dose reduction techniques were utilized: Automated exposure control (AEC), Adjustment of mA and/or kV according to patient size, Use of iterative reconstruction technique such as ASiR, CT scan done according to ALARA and image gently/image wisely Findings: Encephalomalacia within the left frontal lobe. Moderate generalized cerebral volume loss. Mild nonspecific periventricular hypoattenuation. No intra- or extra-axial mass or fluid collection. No acute hemorrhage. The ventricles are normal in size, shape, and morphology. The pagan-white matter junction is normal. The subarachnoid cisterns are patent. Osteoma within the left frontal sinus. The visualized portions of the orbits and globes are normal. The mastoid air cells are clear. The cloth brushing and sueding supervisor topogram shows no lytic lesion or fracture. Impression: No acute intracranial hemorrhage. No large vascular territory rogers-white loss. No intracranial mass, midline shift, or hydrocephalus. Encephalomalacia within the left frontal lobe. Mild chronic small vessel ischemic disease. Moderate global volume loss. Dictated by: Dictated on workstation # [id number] Dict: 04/10/23 1403 Trans: 04/10/[address] [facility] [place] [id number] Interpreted by: REGAN CALZADA DO Electronically signed by: REGAN CALZADA DO 04/10/23 1405 Diagonstic Imaging: Xray Plain Films/CT/US/NM/MRI: chest Comments [facility] [place] [place] NAME: BAILEY WEINSTEIN [facility] REC#: [id number] PT STATUS: REG ER : 1955 PHYSICIAN: BRADY DENNY MD ADMIT DATE: 04/10/23/ER Draft Date of Exam:04/10/23 CHEST 1 VIEW, AP/PA ONLY INDICATION: Altered mental status Portable chest 4:49 PM Heart size and pulmonary vascularity are normal. Lungs are clear. There are no effusions or pneumothoraces. IMPRESSION: No acute abnormalities in the chest. Dictated on workstation # [id number] Dict: 04/10/23 1402 Trans: 04/10/23 1403 [facility] [place] [id number] Interpreted by: HASMUKH RUBIN MD Electronically signed by: Departure Communication (Admissions) Time/Spoke to Consulting Phy: 14:[address] Schultz (PCP) agreeable with d/c to home; will f/u OP Impression Primary Impression: Paresthesia of right arm Additional Impression: History of CVA with residual deficit Disposition: 01 HOME, SELF-CARE Condition: Stable Departure-Patient Inst. Decision time for Depature: 14:30 Referrals: MEHRDAD SCHULTZ MD (PCP/Family) Primary Care Physician Patient Instructions: Paresthesia (DC) Add. Discharge Instructions: Continue your daily medications as prescribed by Dr. Schultz. Please call his office for a follow-up appointment next week. Check your blood pressure twice a day and keep a log of this for Dr. Schultz. Return to the emergency department for any new, concerning or emergent complaints especially weakness in your arm or leg, worsening speech or swallowing issues. Copy Copies To 1: MEHRDAD SCHULTZ MD, KATHRYN M MD Apr 10, 2023 13:31
[2023-04-10 13:33] LABS: BASOPHILS % (AUTO) 1 % (0-10); EOSINOPHILS # (AUTO) 0.1 10^3/uL (0.0-0.3); EOSINOPHILS % (AUTO) 2 % (0-10); HEMATOCRIT 43 % (40-54); HEMOGLOBIN 13.9 g/dL (13.3-17.7); LYMPHOCYTES # (AUTO) 1.4 10^3/uL (1.0-4.0); LYMPHOCYTES % (AUTO) 19 % (12-44); MEAN CORPUSCULAR HEMOGLOBIN 30 pg (25-34); MEAN CORPUSCULAR HGB CONC 33 g/dL (32-36); MEAN CORPUSCULAR VOLUME 91 fL (80-99); MEAN PLATELET VOLUME 9.3 fL (9.0-12.2); MONOCYTES # (AUTO) 0.5 10^3/uL (0.0-1.0); MONOCYTES % (AUTO) 8 % (0-12); NEUTROPHILS # (AUTO) 4.9 10^3/uL (1.8-7.8); NEUTROPHILS % (AUTO) 70 % (42-75); PLATELET COUNT 182 10^3/uL (130-400)
[2023-04-10 13:47] LABS: BILIRUBIN,URINE NEGATIVE (NEGATIVE); CLARITY,URINE CLEAR; COLOR,URINE YELLOW; GLUCOSE, URINE (UA) NEGATIVE (NEGATIVE); KETONES,URINE NEGATIVE (NEGATIVE); LEUKOCYTE ESTERASE ,URINE NEGATIVE (NEGATIVE); NITRITE,URINE NEGATIVE (NEGATIVE); PH,URINE 6.5 (5-9); PROTEIN,URINE NEGATIVE (NEGATIVE)
[2023-04-10 13:49] LABS: INR 1.2 (0.8-1.4); PROTHROMBIN TIME PATIENT 15.5 SEC (12.2-14.7)
[2023-04-10 13:52] LABS: ALBUMIN 4.4 GM/DL (3.2-4.5); CHLORIDE 101 MMOL/L (98-107); FIBRIN DEGRADATION PRODUCTS 0.32 UG/ML (0.00-0.49); POTASSIUM 4.3 MMOL/L (3.6-5.0); SODIUM 134 MMOL/L (135-145)
[2023-04-10 13:54] LABS: CALCIUM 9.7 MG/DL (8.5-10.1)
[2023-04-10 13:55] LABS: GLUCOSE 95 MG/DL (70-105); TOTAL PROTEIN 7.8 GM/DL (6.4-8.2)
[2023-04-10 13:56] LABS: CARBON DIOXIDE 24 MMOL/L (21-32)
[2023-04-10 13:57] LABS: BACTERIA,URINE NEGATIVE /HPF; SQUAMOUS EPITHELIAL CELL,UR RARE /HPF
[2023-04-10 13:57] LABS: BILIRUBIN,TOTAL 0.9 MG/DL (0.1-1.0)
[2023-04-10 13:58] LABS: ALKALINE PHOSPHATASE 70 U/L (40-136); CREATININE SERUM 0.99 MG/DL (0.60-1.30); GFR ESTIMATED 82
[2023-04-10 14:00] LABS: BUN/CREATININE RATIO 9
[2023-04-10 14:01] LABS: ALANINE AMINOTRANSFERASE 66 U/L (0-55)
--- NOTE | 2023-04-10 14:04 | Diagnostic Imaging Report ---
INDICATION: Altered mental status Portable chest 4:49 PM Heart size and pulmonary vascularity are normal. Lungs are clear. There are no effusions or pneumothoraces. IMPRESSION: No acute abnormalities in the chest. Dictated by: Dictated on workstation # [id number]
--- NOTE | 2023-04-10 14:06 | Diagnostic Imaging Report ---
CT HEAD WO-R/O STROKE Date: 04/10/2023 2:00 PM Clinical Indication: Right arm numbness Comparison: CT of the head 01/23/2019. Technique: 5 mm axial tomographic images were obtained of the head without contrast. These were viewed on brain and bone windows. One or more of the following dose reduction techniques were utilized: Automated exposure control (AEC), Adjustment of mA and/or kV according to patient size, Use of iterative reconstruction technique such as ASiR, CT scan done according to ALARA and image gently/image wisely Findings: Encephalomalacia within the left frontal lobe. Moderate generalized cerebral volume loss. Mild nonspecific periventricular hypoattenuation. No intra- or extra-axial mass or fluid collection. No acute hemorrhage. The ventricles are normal in size, shape, and morphology. The pagan-white matter junction is normal. The subarachnoid cisterns are patent. Osteoma within the left frontal sinus. The visualized portions of the orbits and globes are normal. The mastoid air cells are clear. The ladies suit operator topogram shows no lytic lesion or fracture. Impression: No acute intracranial hemorrhage. No large vascular territory rogers-white loss. No intracranial mass, midline shift, or hydrocephalus. Encephalomalacia within the left frontal lobe. Mild chronic small vessel ischemic disease. Moderate global volume loss. Dictated by: Dictated on workstation # [id number]
[2023-04-10 14:40] VITALS: BP 152/94
== END 2023-04-10 14:40 | disposition home or self-care (01) ==
LOC: EDUNIT# 13:08 → ER 13:10
DX: I69.351 Hemiplegia and hemiparesis following cerebral infarction affecting right dominant side (principal); R00.0 Tachycardia, unspecified; I48.91 Unspecified atrial fibrillation; I10 Essential (primary) hypertension; R79.89 Other specified abnormal findings of blood chemistry; Z79.02 Long term (current) use of antithrombotics/antiplatelets
CPT/HCPCS: 36415; 70450; 71045; 80053; 81000; 82947; 84484; 85025; 85379; 85610; 85730; 93005